=== PATIENT | male | born 1945 | race Hispanic/Latino ===

== ENCOUNTER 2017-10-11 14:51 | Inpatient (IN) | payer MEDICARE ==
[2017-10-11] MEDS ORDERED: Albuterol-Ipratrop 3 mg / 0.5 (3 ml) UD IH STA (14:55)
[2017-10-11] MEDS ORDERED: Albuterol-Ipratrop 3 mg / 0.5 (3 ml) UD ONE (14:58)
[2017-10-11 15:13] LABS: VENOUS BLOOD GAS BASE EXCESS -18.2 mmol/L (0.0-2.0); VENOUS BLOOD GAS PO2 133 mm/Hg (30-55)
[2017-10-11 15:14] LABS: VENOUS BLOOD PH 7.15 (7.32-7.43)
[2017-10-11 15:15] LABS: BASO # 0.13 K/mm3 (0.0-2.0); BASO % 0.5 % (0.0-3.0); GRAN # 19.96 (1.4-6.5); GRAN % 78.1 % (50.0-68.0); HEMOGLOBIN 15.3 g/dL (14.0-18.0); LYMPH # 1.4 (1.2-3.4); LYMPH % 5.6 % (22.0-35.0); MEAN CELL VOLUME 101.6 fl (80.0-105.0); MEAN CORPUSCULAR HEMOGLOBIN 34.6 pg (25.0-35.0); MEAN CORPUSCULAR HGB CONC 34.1 g/dl (31.0-37.0); MEAN PLATELET VOLUME 11.9 fl (7.0-11.0); MONO % 15.8 % (1.0-6.0); PLATELET COUNT 199 10^3/uL (120.0-450.0); RBC 4.42 10^6/uL (3.5-6.1); RED CELL DISTRIBUTION WIDTH 14.1 % (11.5-14.5)
[2017-10-11] MEDS ORDERED: Vancomycin 1gm in NS 250ml 1 GM/250 ML BAG IVPB STA (15:16)
[2017-10-11] MEDS ORDERED: Piperacillin/Tazobact 3.375 gm 100 ML IVPB STA (15:16)
[2017-10-11 15:22] LABS: WHITE BLOOD COUNT 25.6 10^3/ul (4.5-11.0)
[2017-10-11 15:27] LABS: INR 1.49 (0.93-1.08); PARTIAL THROMBOPLASTIN TIME 32.9 Seconds (25.1-36.5); PROTHROMBIN TIME 17.1 SECONDS (9.4-12.5)
--- NOTE | 2017-10-11 15:27 | RAD ---
HISTORY: respiratory distress COMPARISON: 03/19/2013 FINDINGS: LUNGS: Extensive right basilar infiltrate. PLEURA: Right costophrenic angle not included on this examination. No left pleural effusion. No pneumothorax. CARDIOVASCULAR: Normal. OSSEOUS STRUCTURES: No significant abnormalities. VISUALIZED UPPER ABDOMEN: Normal. OTHER FINDINGS: None. IMPRESSION: Right basilar infiltrate suspicious for pneumonia.
[2017-10-11 15:28] LABS: URINE BILIRUBIN NEGATIVE (NEGATIVE); URINE BLOOD LARGE (NEGATIVE); URINE GLUCOSE (UA) NEGATIVE (NEGATIVE); URINE LEUKOCYTE ESTERASE SMALL Leu/uL (NEGATIVE); URINE NITRATE NEGATIVE (NEGATIVE); URINE PROTEIN 100 mg/dL (<30 mg/dL); URINE UROBILINOGEN 0.2 E.U./dL (<1 E.U./dL)
[2017-10-11 15:29] LABS: URINE APPEARANCE SL CLOUDY (CLEAR); URINE COLOR YELLOW (YELLOW)
--- NOTE | 2017-10-11 15:33 | ED PDOC ---
Arrival/HPI - General Chief Complaint: Respiratory Distress Time Seen by Provider: 10/11/17 14:53 Historian: Patient, EMS - Critical Care Critical Care Minutes: 30 minutes Critical Care Time: Excluding Proc Time Narrative Critical Care (Text): 10/11/17 17:00 on bipap, then intubated, acidotic with lactate:12 - History of Present Illness Narrative History of Present Illness (Text): 10/11/17 14:50 A 72 year old male, whose past medical history includes COPD and CHF, is brought in by EMS and presents to the emergency department complaining of respiratory distress. Per EMS, patient was found in respiratory distress and put on BiPAP. Patient was given Lasix 60 mg and Nitro patch in the field. Currently has some improvement of symptoms. Limited HPI and ROS due to patient' s current condition of distress. No PMD Past Medical History - Provider Review Nursing Documentation Reviewed: Yes - Infectious Disease Hx of Infectious Diseases: None - Tetanus Immunization Tetanus Immunization: Unknown - Cardiac Hx Cardiac Disorders: Yes Hx Angina: Yes - Pulmonary Hx Respiratory Disorders: Yes Hx Asthma: Yes Hx Bronchitis: Yes Hx Chronic Obstructive Pulmonary Disease (COPD): Yes Hx Emphysema: Yes - Endocrine/Metabolic Hx Diabetes Mellitus Type 2: Yes Hx Hypothyroidism: Yes - Integumentary Hx Psoriasis: Yes - Musculoskeletal/Rheumatological Hx Falls: No - Gastrointestinal Hx Gastrointestinal Disorders: No - Genitourinary/Gynecological Hx Genitourinary Disorders: Yes (URGENCY) Hx Reproductive Disorders: No - Psychiatric Hx Depression: No Hx Emotional Abuse: No Hx Physical Abuse: No Hx Substance Use: No - Past Surgical History Past Surgical History: Unable to Obtain - Surgical History Hx Coronary Stent: Yes - Suicidal Assessment Feels Threatened In Home Enviroment: No Family/Social History - Physician Review Nursing Documentation Reviewed: Yes Family/Social History: No Known Family HX Smoking Status: Unknown If Ever Smoked Hx Alcohol Use: No Hx Substance Use: No Hx Substance Use Treatment: No Allergies/Home Meds Allergies/Adverse Reactions: Allergies No Known Allergies Allergy (Verified 10/11/17 17:02) PER TRCU NURSE Home Medications: Home Meds Medication Instructions Recorded Confirmed Levothyroxine [Synthroid] 100 mcg PO DAILY 04/02/13 10/11/17 Metformin HCl [Metformin HCl] 500 mg PO BID 04/02/13 10/11/17 glyBURIDE [Glyburide] 5 mg PO BID 04/02/13 10/11/17 Lisinopril [Zestril] 10 mg PO DAILY 10/11/17 10/11/17 Metoprolol Tartrate [Lopressor] 50 mg PO BID 10/11/17 10/11/17 Review of Systems - Review of Systems Systems not reviewed;Unavailable: Respiratory Distress Physical Exam Vital Signs Reviewed: Yes Vital Signs Temp Pulse Resp BP Pulse Ox 10/11/17 17:00 117 H 18 149/92 H 94 L 10/11/17 16:51 126 H 36 H 119/102 H 86 L 10/11/17 16:49 131 H 144/59 L 91 L 10/11/17 16:30 112 H 30 H 128/65 96 10/11/17 16:15 111 H 30 H 122/62 98 10/11/17 16:00 100 H 30 H 120/78 96 10/11/17 15:45 100 H 30 H 100/66 97 10/11/17 15:30 110 H 30 H 99/38 L 96 10/11/17 15:13 144/69 10/11/17 14:55 33 H 96 10/11/17 14:51 100.3 F H 114 H 33 H 144/69 96 Temperature: Afebrile Blood Pressure: Normal Pulse: Tachycardic Respiratory Rate: Tachypneic Appearance: Positive for: Ill-Appearing, Uncomfortable Pain Distress: None Mental Status: Positive for: Alert and Oriented X 3 - Systems Exam Head: Present: Normocephalic, Abrasion (left forehead (when questioned about fall, patient nods head that he fell)) Pupils: Present: PERRL Extroacular Muscles: Present: EOMI Mouth: Present: Moist Mucous Membranes Neck: Present: Normal Range of Motion Respiratory/Chest: Present: Respiratory Distress, Rales (bilaterally), Rhonchi Cardiovascular: Present: Tachycardic Abdomen: Present: Normal Bowel Sounds. No: Tenderness, Distention, Peritoneal Signs Genitourinary Male: Present: Other (incontinent of stool and urine) Lower Extremity: Present: Other (chronic stasis skin changes). No: Edema Psychiatric: Present: Alert, Oriented x 3 Medical Decision Making ED Course and Treatment: 10/11/17 14:53 Impression: 72 year old male with respiratory distress. Physical exam shows head normacephalic, abrasion to left forehead; rhonchi and rales bilaterally; tachycardic. Plan: -- EKG -- Head CT -- Chest X-ray -- Labs -- Venous Blood Gas -- Lactated Ringer's IV -- Vancomycin -- Piperacillin -- Blood Culture -- Urine Culture -- BiPAP -- Influenza A B test -- Urinalysis -- Reassess and disposition Prior Visits: Notes and results from previous visits were reviewed. Patient was last seen in the emergency department on Progress Notes: 10/11/17 15:20 Code Sepsis called. Broad spectrum antibiotics after blood and urine culture and 30cc/kg (4L) fluid ordered with instructions to give 2L bolus in under 30 mins and then 150cc/hr. Patient already on bipap and concerned for worsening respiratory distress 10/11/2017 15:25 Chest X-ray IMPRESSION: Right basilar infiltrate suspicious for pneumonia. Dictator: Adam Trujillo MD 10/11/17 15:53 On reevaluation, patient now phonating and asking "when can i go upstairs" 10/11/17 16:38 EKG shows sinus tach at 112bpm with no acute [facility] Nurse called me to bedside as patient became acutely dyspneic. He was unable to speak and began to desaturate to 85% and became altered and air hungry. Patient was intubated for respiratory distress. 10/11/17 16:46 PROCEDURE: INTUBATION Performed by the emergency provider Time: 1646 Consent: Discussion of the risks, benefits, and alternatives to the procedure, along with informed consent was precluded by the urgency of the procedure and the patient condition. Timeout: A timeout to verify the correct patient, procedure, and site was performed. Indication: respiratory distress Pre-oxygenation: [id number] Medications:. See MAR for details. ETT Size: 7.5 Confirmation: Cords directly visualized as tube passed, good bilateral breath sounds, positive CO2 detector color change, tube fogging, adequate chest rise, improving pulse oximetry reading, improved skin color, and absence of gastric sounds,. ETT Secured: The cuff was inflated and the tube was secured appropriately at a distance of 21cm at the lip. Post-Procedure: There were no immediate complications. CXR Confirmation: yes 10/11/17 17:[address] abd/pelvis requested by ICU negative for acute disease ( patient denied abdominal pain but ordered due to elevated lactate). To go to ICU for respiratory distress, renal failure, electrolyte abnormalities, pneumonia, chf 10/11/17 18:57 - Lab Interpretations Lab Results: 10/11/17 14:50 10/11/17 14:50 Lab Results 10/11/17 15:37: Influenza Typ A,B (EIA) Negative for flu a/b 10/11/17 14:50: pO2 133 H, VBG pH 7.15 L*, VBG pCO2 26.0 L, VBG HCO3 9.1 L, VBG Total CO2 9.9 L, VBG O2 Sat (Calc) 100.0 H, VBG Base Excess -18.2 L, VBG Potassium 5.1, Sodium 121.0 L, Chloride 88.0 L, Glucose 251 H, Lactate 12.0 H*, FiO2 21.0, Venous Blood Potassium 5.1 10/11/17 14:50: Sodium 127 L, Chloride 92 L, Potassium 5.2 H, Carbon Dioxide 10 L, Anion Gap 30 H, BUN 43 H, Creatinine 4.1 H, Est GFR ( Amer) 17, Est GFR (Non-Af Amer) 14, Random Glucose 239 H, Calcium 9.1, Phosphorus 4.9 H, Magnesium 1.6 L, Total Bilirubin 1.5 H, AST 80 H, ALT 44, Alkaline Phosphatase 115, Lactate Dehydrogenase 891 H, Total Creatine Kinase 1307 H, CK-MB (CK-2) 10.7 H, CK-MB (CK-2) % 0.8 L, Troponin I 0.04, NT-Pro-B Natriuret Pep 1750 H, Total Protein 7.5, Albumin 3.9, Globulin 3.6, Albumin/Globulin Ratio 1.1 10/11/17 14:50: PT 17.1 H, INR 1.49 H, APTT 32.9 10/11/17 14:50: WBC 25.6 H*, RBC 4.42, Hgb 15.3, Hct 44.9, MCV 101.6, MCH 34.6, MCHC 34.1, RDW 14.1, Plt Count 199, MPV 11.9 H, Gran % 78.1 H, Lymph % (Auto) 5.6 L, [place] % (Auto) 15.8 H, Eos % (Auto) 0.0 L, Baso % (Auto) 0.5, Gran # 19.96 H, Lymph # (Auto) 1.4, [place] # (Auto) 4.0 H, Eos # (Auto) 0.0, Baso # (Auto ) 0.13, Neutrophils % (Manual) 72 H, Band Neutrophils % 6 H, Lymphocytes % ( Manual) 7 L, Atypical Lymphs % 2 H, Monocytes % (Manual) 13 H, Nucleated RBC % 1 10/11/17 13:05: Urine Color Yellow, Urine Appearance Sl cloudy, Urine pH 6.0, Ur Specific [place] 1.025, Urine Protein 100 H, Urine Glucose (UA) Negative, Urine Ketones Negative, Urine Blood Large H, Urine Nitrate Negative, Urine Bilirubin Negative, Urine Urobilinogen 0.2, Ur Leukocyte Esterase Small H, Urine RBC 1 - 3, Urine WBC 10 - 15, Ur Epithelial Cells 1 - 3, Urine Bacteria Few - RAD Interpretation Radiology Orders: 10/11/17 14:53 HEAD W/O CONTRAST [CT] Stat 10/11/17 14:54 CHEST PORTABLE [RAD] Stat 10/11/17 16:04 ABD & PELVIS W/O PO OR IV CONT [CT] Stat - Medication Orders Current Medication Orders: Albuterol Sulfate (Albuterol 0.083% Inhal Lydia (2.5 Mg/3 Ml) Ud) 2.5 mg IH Q2H PRN PRN Reason: Shortness of Breath Albuterol Sulfate (Albuterol 0.083% Inhal Lydia (2.5 Mg/3 Ml) Ud) 2.5 mg IH [id number] GLORIA Propofol (Diprivan) 1,000 mg in 100 mls @ 3.81 mls/hr IV .Q24H PRN; Protocol; 5 MCG/KG/MIN PRN Reason: TITRATE PER PROTOCOL Last Admin: 10/11/17 17:00 Dose: 5 mcg/kg/min, 3.81 mls/hr eMAR Start Stop Document 10/11/17 17:00 SE (Rec: 10/11/17 17:16 SE [id number]) Intravenous Solution Start Date 10/11/17 Start Time 17:00 Razo Agitation Sedation Document 10/11/17 17:00 SE (Rec: 10/11/17 17:16 SE [id number]) Razo Agitation Sedation Scale Razo Agitation Sedation Scale Score +2 Agitated: Frequent non- purposeful movement, fights ventilator Titration Intervention Document 10/11/17 17:00 SE (Rec: 10/11/17 17:16 SE [id number]) Titration Intake Waste Amount 0 Container Volume 100 Titration Dosing Titration Dose 5 IV Rate 3.81 Intake/Decrease Started Cefepime HCl (Maxipime 1gm) 1 gm in 100 mls @ 100 mls/hr IVPB Q12 GLORIA PRN Reason: Protocol Sodium Chloride (Sodium Chloride 0.9%) 1,000 mls @ 150 mls/hr IV .Q6H40M GLORIA Sodium Chloride (Sodium Chloride 0.9%) 2,000 mls @ 999 mls/hr IV .Q2H1M STA Stop: 10/11/17 19:41 Vancomycin HCl (Vancomycin 1gm) 1 gm in 250 mls @ 167 mls/hr IVPB DAILY GLORIA PRN Reason: Protocol Azithromycin (Zithromax 500mg In Ns) 500 mg in 250 mls @ 167 mls/hr IVPB DAILY GLORIA PRN Reason: Protocol Insulin Human Regular (Humulin R Med) 0 units SC Q6H GLORIA PRN Reason: Protocol Oseltamivir Phosphate (Tamiflu Susp) 30 mg PO DAILY GLORIA PRN Reason: Protocol Pantoprazole Sodium (Protonix Inj) 40 mg IVP DAILY GLORIA Discontinued Medications Albuterol/Ipratropium (Duoneb 3 Mg/0.5 Mg (3 Ml) Ud) 3 ml IH STAT STA Stop: 10/11/17 14:56 Last Admin: 10/11/17 15:09 Dose: 3 ml Etomidate (Amidate) 30 mg IVP STAT STA Stop: 10/11/17 17:01 Last Admin: 10/11/17 16:52 Dose: 30 mg IVP Administration Document 10/11/17 16:52 SE (Rec: 10/11/17 17:14 SE [id number]) Charges for Administration # of IVP Administrations 1 Furosemide (Lasix) 20 mg IVP STAT STA Stop: 10/11/17 14:56 Last Admin: 10/11/17 15:13 Dose: 20 mg MAR Blood Pressure Document 10/11/17 15:13 SE (Rec: 10/11/17 15:13 SE [id number]) Blood Pressure Blood Pressure (100/60-150/90) 144/69 IVP Administration Document 10/11/17 15:13 SE (Rec: 10/11/17 15:13 SE [id number]) Charges for Administration # of IVP Administrations 1 Lactated Ringer's 4,000 ml/ IV (SUPPLIES) 4,000 mls @ 7,620.36 mls/hr IV ONCE ONE PRN Reason: 60 ML/KG/HR Stop: 10/11/17 15:18 Last Admin: 10/11/17 15:23 Dose: 7,620.36 mls/hr Vancomycin HCl (Vancomycin 1gm) 1 gm in 250 mls @ 167 mls/hr IVPB STAT STA PRN Reason: Protocol Stop: 10/11/17 16:45 Last Admin: 10/11/17 16:09 Dose: 167 mls/hr eMAR Start Stop Document 10/11/17 16:09 SE (Rec: 10/11/17 16:09 SE [id number]) Intravenous Solution Start Date 10/11/17 Start Time 16:09 Piperacillin Sod/Tazobactam Sod (Zosyn 3.375 In Ns 100ml) 100 mls @ 200 mls/hr IVPB STAT STA PRN Reason: Protocol Stop: 10/11/17 15:45 Last Admin: 10/11/17 15:27 Dose: 200 mls/hr eMAR Start Stop Document 10/11/17 15:27 SE (Rec: 10/11/17 15:27 SE [id number]) Intravenous Solution Start Date 10/11/17 Start Time 15:27 Methylprednisolone (Solu-Medrol) 125 mg IVP STAT STA Stop: 10/11/17 16:06 Last Admin: 10/11/17 16:14 Dose: 125 mg IVP Administration Document 10/11/17 16:14 SE (Rec: 10/11/17 16:15 SE [id number]) Charges for Administration # of IVP Administrations 1 Midazolam HCl (Versed Inj) 5 mg IVP STAT STA Stop: 10/11/17 17:37 Last Admin: 10/11/17 17:30 Dose: 5 mg Comments: admin by MALCOLM Carmen RN in CT IVP Administration Document 10/11/17 17:30 SE (Rec: 10/11/17 17:39 SE [id number]) Charges for Administration # of IVP Administrations 1 Propofol (Diprivan) 50 mg IVP STAT STA Stop: 10/11/17 17:21 Last Admin: 10/11/17 17:18 Dose: 50 mg IVP Administration Document 10/11/17 17:18 SE (Rec: 10/11/17 17:36 SE [id number]) Charges for Administration # of IVP Administrations 1 Succinylcholine Chloride (Quelicin) 100 mg IV STAT STA Stop: 10/11/17 17:01 Last Admin: 10/11/17 16:52 Dose: 100 mg eMAR Start Stop Document 10/11/17 16:52 SE (Rec: 10/11/17 17:14 SE [id number]) Intravenous Solution Start Date 10/11/17 Start Time 17:14 - Scribe Statement The provider has reviewed the documentation as recorded by the Don Darnell Provider Scribe Attestation: All medical record entries made by the Scribe were at my direction and personally dictated by me. I have reviewed the chart and agree that the record accurately reflects my personal performance of the history, physical exam, medical decision making, and the department course for this patient. I have also personally directed, reviewed, and agree with the discharge instructions and disposition. Disposition/Present on Arrival - Present on Arrival Any Indicators Present on Arrival: No History of DVT/PE: No History of Uncontrolled Diabetes: No Urinary Catheter: No History of Decub. Ulcer: No History Surgical Site Infection Following: None - Disposition Have Diagnosis and Disposition been Completed?: Yes Diagnosis: Pneumonia, Septic shock, Respiratory distress Disposition: HOSPITALIZED Disposition Time: 15:57 Patient Plan: Admission Patient Problems: Current Active Problems Problem Status Onset Pneumonia Acute Respiratory distress Acute Septic shock Acute Condition: CRITICAL
[2017-10-11 15:38] LABS: URINE BACTERIA FEW (NEG)
[2017-10-11 15:43] LABS: TROPONIN I 0.04 ng/mL
[2017-10-11 15:44] LABS: ATYPICAL LYMPHOCYTE 2 % (0.0-0.0); BAND 6 % (0-2); LYMPHOCYTE 7 % (22.0-35.0); MONOCYTE 13 % (1.0-6.0); NEUTROPHIL 72 % (50.0-70.0)
[2017-10-11 15:45] LABS: NUCLEATED RED BLOOD CELL 1 %
[2017-10-11 15:47] LABS: ALB/GLOB RATIO 1.1 (1.1-1.8); ALBUMIN 3.9 g/dL (3.0-4.8); CALCIUM 9.1 mg/dL (8.4-10.5); MAGNESIUM 1.6 mg/dL (1.7-2.2)
[2017-10-11 16:15] LABS: CK MB% 0.8 % (2.5-3.0); CK-MB 10.7 ng/mL (0.0-3.6)
[2017-10-11 16:28] LABS: VENOUS BLOOD GAS BASE EXCESS -15.4 mmol/L (0.0-2.0); VENOUS BLOOD GAS PO2 52 mm/Hg (30-55)
[2017-10-11 16:34] LABS: VENOUS BLOOD PH 7.17 (7.32-7.43)
[2017-10-11] MEDS ORDERED: Etomidate 20 mg/10ml Inj IV ONE ×2 (16:50→16:51)
[2017-10-11] MEDS ORDERED: Succinylcholine 200 mg/10 ml Inj IV ONE (16:50)
[2017-10-11] MEDS: Succinylcholine 200 mg/10 ml Inj IV STA ×2 (16:52→17:15)
[2017-10-11] MEDS ORDERED: Etomidate 20 mg/10ml Inj IVP STA (17:00)
[2017-10-11] MEDS: Propofol 10 mg/ml 1,000 MG/100 ML VIAL IV PRN ×2 (17:00→22:02)
[2017-10-11] MEDS ORDERED: Propofol 10 mg/ml 1,000 MG/100 ML VIAL ONE (17:00)
[2017-10-11] MEDS ORDERED: Propofol 10 mg/ml Inj (20 ML) IVP STA (17:20)
--- NOTE | 2017-10-11 17:26 | CP.PCM.CON ---
History of Present Illness - History of Present Illness History of Present Illness: Critical Care Consult Note patient is 72yo male with PMhx of former smoker (30pk years), COPD, ?CHF, presents with resp distress. As per the ER patient was found to be in resp distress at home, complaining of SOB, placed on BIPAP by EMS and given Lasix 60mg IV x 1. In the ER patient given 1L, and Lasix 20mg IV x 1. Pt is was on BIPAP 12/5/50%, sat 99%, RR 16, in NAD, speaking full sentences, then 15-20 minutes later went into worsening resp distress, hypoxia, pulse ox 75%, subsequently intubated. Currently intubated, sedated. PMhx as above PSHx as above Allergies NKDA Meds as per EMR FHx NC ROS as above Review of Systems - Review of Systems Review of Systems: as per HPI Past Patient History - Infectious Disease Hx of Infectious Diseases: None - Tetanus Immunizations Tetanus Immunization: Unknown - Past Social History Smoking Status: Unknown If Ever Smoked - CARDIAC Hx Cardiac Disorders: Yes Hx Angina: Yes - PULMONARY Hx Respiratory Disorders: Yes Hx Asthma: Yes Hx Bronchitis: Yes Hx Chronic Obstructive Pulmonary Disease (COPD): Yes Hx Emphysema: Yes - ENDOCRINE/METABOLIC Hx Diabetes Mellitus Type 2: Yes Hx Hypothyroidism: Yes - INTEGUMENTARY Hx Psoriasis: Yes - MUSCULOSKELETAL/RHEUMATOLOGICAL Hx Falls: No - GASTROINTESTINAL Hx Gastrointestinal Disorders: No - GENITOURINARY/GYNECOLOGICAL Hx Genitourinary Disorders: Yes (URGENCY) Hx Reproductive Disorders: No - PSYCHIATRIC Hx Depression: No Hx Emotional Abuse: No Hx Physical Abuse: No Hx Substance Use: No - SURGICAL HISTORY Hx Coronary Stent: Yes Meds Allergies/Adverse Reactions: Allergies Allergy/AdvReac Type Severity Reaction Status Date / Time No Known Allergies Allergy Verified 10/11/17 17:02 - Medications Medications: Current Medications Vancomycin HCl (Vancomycin 1gm) 1 gm in 250 mls @ 167 mls/hr IVPB STAT STA PRN Reason: Protocol Stop: 10/11/17 16:45 Last Admin: 10/11/17 16:09 Dose: 167 mls/hr Physical Exam - Constitutional Appears: No Acute Distress, Unkempt - Eye Exam Eye Exam: Normal appearance - ENT Exam ENT Exam: Mucous Membranes Dry - Neck Exam Neck exam: Positive for: Full Rom - Respiratory Exam Respiratory Exam: Decreased Breath Sounds, NORMAL BREATHING PATTERN Additional comments: decreased breath sounds at the bases, no wheezing - Cardiovascular Exam Cardiovascular Exam: REGULAR RHYTHM, +S1, +S2 - GI/Abdominal Exam GI & Abdominal Exam: Normal Bowel Sounds, Soft - Extremities Exam Extremities exam: Positive for: normal inspection - Neurological Exam Neurological exam: Alert, Oriented x3 - Skin Skin Exam: Normal Color, Warm Results - Vital Signs Recent Vital Signs: Last Vital Signs Temp 100.3 F H 10/11/17 14:51 Pulse 112 H 10/11/17 16:30 Resp 30 H 10/11/17 16:30 BP 128/65 10/11/17 16:30 Pulse Ox 96 10/11/17 16:30 - Labs Result Diagrams: 10/11/17 14:50 10/11/17 14:50 Labs: Laboratory Results - last 24 hr 10/11/17 10/11/17 10/11/17 13:05 14:50 14:50 WBC 25.6 H* RBC 4.42 Hgb 15.3 Hct 44.9 MCV 101.6 MCH 34.6 MCHC 34.1 RDW 14.1 Plt Count 199 MPV 11.9 H Gran % 78.1 H Lymph % (Auto) 5.6 L [place] % (Auto) 15.8 H Eos % (Auto) 0.0 L Baso % (Auto) 0.5 Gran # 19.96 H Lymph # (Auto) 1.4 [place] # (Auto) 4.0 H Eos # (Auto) 0.0 Baso # (Auto) 0.13 Neutrophils % (Manual) 72 H Band Neutrophils % 6 H Lymphocytes % (Manual) 7 L Atypical Lymphs % 2 H Monocytes % (Manual) 13 H Nucleated RBC % 1 PT 17.1 H INR 1.49 H APTT 32.9 pO2 VBG pH VBG pCO2 VBG HCO3 VBG Total CO2 VBG O2 Sat (Calc) VBG Base Excess VBG Potassium Sodium Chloride Glucose Lactate FiO2 Potassium Carbon Dioxide Anion Gap BUN Creatinine Est GFR ( Amer) Est GFR (Non-Af Amer) Random Glucose Calcium Phosphorus Magnesium Total Bilirubin AST ALT Alkaline Phosphatase Lactate Dehydrogenase Total Creatine Kinase CK-MB (CK-2) CK-MB (CK-2) % Troponin I NT-Pro-B Natriuret Pep Total Protein Albumin Globulin Albumin/Globulin Ratio Venous Blood Potassium Urine Color Yellow Urine Appearance Sl cloudy Urine pH 6.0 Ur Specific [place] 1.025 Urine Protein 100 H Urine Glucose (UA) Negative Urine Ketones Negative Urine Blood Large H Urine Nitrate Negative Urine Bilirubin Negative Urine Urobilinogen 0.2 Ur Leukocyte Esterase Small H Urine RBC 1 - 3 Urine WBC 10 - 15 Ur Epithelial Cells 1 - 3 Urine Bacteria Few 10/11/17 10/11/17 10/11/17 14:50 14:50 16:25 WBC RBC Hgb Hct MCV MCH MCHC RDW Plt Count MPV Gran % Lymph % (Auto) [place] % (Auto) Eos % (Auto) Baso % (Auto) Gran # Lymph # (Auto) [place] # (Auto) Eos # (Auto) Baso # (Auto) Neutrophils % (Manual) Band Neutrophils % Lymphocytes % (Manual) Atypical Lymphs % Monocytes % (Manual) Nucleated RBC % PT INR APTT pO2 133 H 52 VBG pH 7.15 L* 7.17 L* VBG pCO2 26.0 L 33.0 L VBG HCO3 9.1 L 12.0 L VBG Total CO2 9.9 L 13.0 L VBG O2 Sat (Calc) 100.0 H 90.1 H VBG Base Excess -18.2 L -15.4 L VBG Potassium 5.1 4.9 Sodium 127 L 121.0 L 123.0 L Chloride 92 L 88.0 L 93.0 L Glucose 251 H 187 H Lactate 12.0 H* 8.8 H* FiO2 21.0 21.0 Potassium 5.2 H Carbon Dioxide 10 L Anion Gap 30 H BUN 43 H Creatinine 4.1 H Est GFR ( Amer) 17 Est GFR (Non-Af Amer) 14 Random Glucose 239 H Calcium 9.1 Phosphorus 4.9 H Magnesium 1.6 L Total Bilirubin 1.5 H AST 80 H ALT 44 Alkaline Phosphatase 115 Lactate Dehydrogenase 891 H Total Creatine Kinase 1307 H CK-MB (CK-2) 10.7 H CK-MB (CK-2) % 0.8 L Troponin I 0.04 NT-Pro-B Natriuret Pep 1750 H Total Protein 7.5 Albumin 3.9 Globulin 3.6 Albumin/Globulin Ratio 1.1 Venous Blood Potassium 5.1 4.9 Urine Color Urine Appearance Urine pH Ur Specific [place] Urine Protein Urine Glucose (UA) Urine Ketones Urine Blood Urine Nitrate Urine Bilirubin Urine Urobilinogen Ur Leukocyte Esterase Urine RBC Urine WBC Ur Epithelial Cells Urine Bacteria - Imaging and Cardiology Chest x-ray Status: Image reviewed by me, Report reviewed by me Assessment & Plan - Assessment and Plan (Free Text) Assessment: 72yo male a/w resp failure, lactic acidosis, PNA PNA Respiratory failure Lactic Acidosis Renal Failure Metabolic Acidosis - currently intubated, sedated, BP 122/50, HR 80s, sinus - CXR with RML/RLL consolidation, pulm edema - labs with lactic acidosis thats improving 12-->8.8 - CT head, A/P pending Recommend: - cont with ventilatory support, low tidal vol ventilation, obtain ABG, obtain CXR - broad spectrum antibiotics, Vanco, Cefepime, Azithro - check urine Legionella, Strep, Procal - Check Sputum culture - Duonebs PRN - would hold off steroids for now, pending FLU swab - blood cultures, Urine cultures, ID consult - BP control - confirm home meds - would bolus 3L NS, repeat lactate thereafter - repeat BMP - CT head, CT A/P - obtain renal U/S - UA, Ulytes - renal consult - ECHO - repeat cardiac enzymes - GI ppx - DVT ppx patient at high risk for morbidity and mortality Critical care time 45 minutes
[2017-10-11] MEDS ORDERED: Midazolam 5 MG/ML ONE (17:33)
[2017-10-11] MEDS ORDERED: Albuterol 0.083% Inhal Sol (2.5 mg/3 mL) UD IH PRN (17:34)
[2017-10-11] MEDS ORDERED: Midazolam 2 MG/2 ML VIAL IVP STA (17:36)
--- NOTE | 2017-10-11 17:50 | RAD ---
HISTORY: Intubation. COMPARISON: October 11, 2017. Time of the most recent examination: 15:00 FINDINGS: LUNGS: Improved aeration of the lungs particularly right lower lobe infiltrate. PLEURA: No significant pleural effusion identified, no pneumothorax apparent. CARDIOVASCULAR: No radiographic findings to suggest acute or significant cardiovascular disease. OSSEOUS STRUCTURES: No significant abnormalities. VISUALIZED UPPER ABDOMEN: Normal. OTHER FINDINGS: Satisfactory position of recently placed endotracheal tube. IMPRESSION: Satisfactory position of recently placed endotracheal tube. Improved aeration of lung/right lower lobe infiltrate.
--- NOTE | 2017-10-11 18:14 | CT ---
PROCEDURE: CT HEAD WITHOUT CONTRAST. HISTORY: fall COMPARISON: None available. TECHNIQUE: Axial computed tomography images were obtained through the head/brain without intravenous contrast. Radiation dose: Total exam DLP = 1037.37 mGy-cm. This CT exam was performed using one or more of the following dose reduction techniques: Automated exposure control, adjustment of the mA and/or kV according to patient size, and/or use of iterative reconstruction technique. FINDINGS: HEMORRHAGE: No intracranial hemorrhage. BRAIN: Diffuse atrophy with prominence of the ventricles and sulci noted. No mass effect or edema. Scattered periventricular and subcortical white matter hypodensities, which are nonspecific, but often seen with chronic microvascular ischemic disease. Please note that MRI with diffusion imaging is more sensitive in the detection of acute ischemic event. VENTRICLES: No hydrocephalus. CALVARIUM: Postsurgical changes consistent with posterior right craniotomy. PARANASAL SINUSES: Unremarkable as visualized. No significant inflammatory changes. MASTOID AIR CELLS: Small fluid within the right mastoid air cells. The left mastoid air cells appear clear. OTHER FINDINGS: Partially imaged endotracheal tube. Bilateral nasal bone fracture deformities, age indeterminate. IMPRESSION: Generalized atrophy. Nonspecific white matter changes. Postsurgical changes consistent with posterior right craniotomy. Small fluid within the right mastoid air cells; correlate for mastoiditis. Bilateral age indeterminate nasal bone fracture deformities. Partially imaged endotracheal tube.
--- NOTE | 2017-10-11 18:30 | CT ---
PROCEDURE: CT Abdomen and Pelvis without intravenous contrast HISTORY: Respiratory distress, elevated lactate COMPARISON: 03/19/2013 TECHNIQUE: Unenhanced study. Neither oral nor intravenous contrast administered. Sensitivity and specificity for acute inflammatory processes limited by the absence of oral and intravenous contrast. . Radiation dose: Total exam DLP = 2176.14 mGy-cm. This CT exam was performed using one or more of the following dose reduction techniques: Automated exposure control, adjustment of the mA and/or kV according to patient size, and/or use of iterative reconstruction technique. FINDINGS: LOWER THORAX: Multi segment infiltrate incompletely visualize right lower lobe LIVER: Unremarkable. No gross lesion or ductal dilatation. GALLBLADDER AND BILE DUCTS: Unremarkable. PANCREAS: Unremarkable. No gross lesion or ductal dilatation. SPLEEN: Unremarkable. ADRENALS: Unremarkable. No mass. KIDNEYS AND URETERS: Unremarkable. No hydronephrosis. No solid mass. Stability of multiple bilateral renal cysts compared to the prior study VASCULATURE: Unremarkable. No aortic aneurysm. BOWEL: Diverticulosis without an acute inflammatory component or other associated pathologic process. Constipation without fecal impaction or obstruction. APPENDIX: Unremarkable. Normal appendix. PERITONEUM: Unremarkable. No free fluid. No free air. LYMPH NODES: Unremarkable. No enlarged lymph nodes. BLADDER: Mesa catheter identified in the urinary bladder. REPRODUCTIVE: Prostatic enlargement. BONES: No acute fracture. OTHER FINDINGS: None. IMPRESSION: No acute findings related to/accounting for the clinical presentation. Additional benign and/or incidental findings described above. No significant interval change compared to the prior examination(s).
[2017-10-11] MEDS: Sodium Chloride 0.9% 2,000 ML IV STA ×2 (18:54→19:30)
[2017-10-11] MEDS: Insulin Reg-MEDIUM-Coverage SC SCH (19:00)
[2017-10-11] MEDS ORDERED: Sodium Chloride 0.9% 500 ML IV STA (19:29)
[2017-10-11] MEDS: Sodium Chloride 0.9% 1,000 ML IV SCH (19:39)
[2017-10-11 20:20] VITALS: BMI 33.3
[2017-10-11] MEDS ORDERED: Pneumococcal 23-Valent Vaccine IM ONE (20:20)
[2017-10-11] MEDS ORDERED: Influenza Vaccine 60 mcg/0.5 mL SYR (4YR UP) IM ONE (20:20)
[2017-10-11] MEDS: Albuterol 0.083% Inhal Sol (2.5 mg/3 mL) UD IH SCH (21:10)
[2017-10-11] MEDS: Cefepime 1gm in NS 100ml 1 GM/100 ML BAG IVPB SCH (22:03)
--- NOTE | 2017-10-11 23:26 | PCM.SEPTIC ---
Sepsis Progress Note - Reassessment Type Date of Evaluation: 10/11/17 Time of Evaluation: 21:30 Reassessment Type: Non-invasive reassessment - Non Invasive Reassessment Were the most recent vital sign reviewed: Yes Vital Sign (Latest): Temp Pulse Resp BP Pulse Ox 100.3 F H 131 H 16 85/46 L 98 10/11/17 19:46 10/11/17 19:46 10/11/17 19:46 10/11/17 19:46 10/11/17 19:30 Cardiovascular: Yes: Tachycardia Respiratory: Yes: Rales, Rhonchi Capillary Refill: Normal (Less than 2 sec) Skin: Normal Color
--- NOTE | 2017-10-11 23:31 | CP.PCM.CON ---
History of Present Illness - History of Present Illness History of Present Illness: Infectious Disease Consultation: October 11, 2017 72 yo male presenting with SOB and respiratory distress at home. When entering through the ER, the patient was started on BiPAP and given Lasix. 15 minutes afterwards, the patient had worsening SOB and required intubation. Influenza testing was negative. Multiple electrolyte abnormalities especially hyponatremia and elevated creatinine. Patient is acidotic as well. Most of the information taken from the patient's chart. As the patient is intubated and ventilated now, unable to ask the patient any additional questions. The patient has no recent previous hospitalizations (last hospitalization in 2012). PMHx: COPD, CHF, Ex-smoker PSHx: None that I am aware of Allergies: NKDA Social Hx: Patient has a tobacco use history from records in 2012 No known EtOH history No known illicit drug use history Active Medications Albuterol Sulfate (Albuterol 0.083% Inhal Lydia (2.5 Mg/3 Ml) Ud) 2.5 mg IH Q2H PRN PRN Reason: Shortness of Breath Albuterol Sulfate (Albuterol 0.083% Inhal Lydia (2.5 Mg/3 Ml) Ud) 2.5 mg IH [id number] [facility] Last Admin: 10/11/17 21:10 Dose: 2.5 mg Propofol (Diprivan) 1,000 mg in 100 mls @ 3.81 mls/hr IV .Q24H PRN; Protocol; 5 MCG/KG/MIN PRN Reason: TITRATE PER PROTOCOL Last Admin: 10/11/17 22:02 Dose: 24.93 mcg/kg/min, 19 mls/hr Cefepime HCl (Maxipime 1gm) 1 gm in 100 mls @ 100 mls/hr IVPB Q12 [facility] PRN Reason: Protocol Last Admin: 10/11/17 22:03 Dose: 100 mls/hr Sodium Chloride (Sodium Chloride 0.9%) 1,000 mls @ 150 mls/hr IV .Q6H40M [facility] Last Admin: 10/11/17 19:39 Dose: 150 mls/hr Vancomycin HCl (Vancomycin 1gm) 1 gm in 250 mls @ 167 mls/hr IVPB DAILY [facility] PRN Reason: Protocol Azithromycin (Zithromax 500mg In Ns) 500 mg in 250 mls @ 167 mls/hr IVPB DAILY [facility] PRN Reason: Protocol Insulin Human Regular (Humulin R Med) 0 units SC Q6H [facility] PRN Reason: Protocol Last Admin: 10/11/17 19:00 Dose: Not Given Oseltamivir Phosphate (Tamiflu Susp) 30 mg PO DAILY [facility] PRN Reason: Protocol Pantoprazole Sodium (Protonix Inj) 40 mg IVP DAILY [facility] Family Hx: Unable to Obtain ROS: Unable to Obtain. Past Patient History - Infectious Disease Hx of Infectious Diseases: None - Tetanus Immunizations Tetanus Immunization: Unknown - Past Social History Smoking Status: Unknown If Ever Smoked - CARDIAC Hx Cardiac Disorders: Yes (cad) Hx Angina: Yes - PULMONARY Hx Respiratory Disorders: Yes Hx Asthma: Yes Hx Bronchitis: Yes Hx Chronic Obstructive Pulmonary Disease (COPD): Yes Hx Emphysema: Yes - ENDOCRINE/METABOLIC Hx Diabetes Mellitus Type 2: Yes Hx Hypothyroidism: Yes - INTEGUMENTARY Hx Psoriasis: Yes - MUSCULOSKELETAL/RHEUMATOLOGICAL Hx Falls: Yes - GASTROINTESTINAL Hx Gastrointestinal Disorders: No - GENITOURINARY/GYNECOLOGICAL Hx Genitourinary Disorders: Yes (URGENCY) - PSYCHIATRIC Hx Psychophysiologic Disorder: (unknown) Hx Depression: No Hx Emotional Abuse: No Hx Physical Abuse: No Hx Substance Use: (unknown) - SURGICAL HISTORY Hx Surgeries: (unknown) Hx Cardiac Catheterization: Yes Hx Coronary Stent: Yes Meds Allergies/Adverse Reactions: Allergies Allergy/AdvReac Type Severity Reaction Status Date / Time No Known Allergies Allergy Verified 10/11/17 19:45 - Medications Medications: Current Medications Albuterol Sulfate (Albuterol 0.083% Inhal Lydia (2.5 Mg/3 Ml) Ud) 2.5 mg IH Q2H PRN PRN Reason: Shortness of Breath Albuterol Sulfate (Albuterol 0.083% Inhal Lydia (2.5 Mg/3 Ml) Ud) 2.5 mg IH [id number] [facility] Last Admin: 10/11/17 21:10 Dose: 2.5 mg Propofol (Diprivan) 1,000 mg in 100 mls @ 3.81 mls/hr IV .Q24H PRN; Protocol; 5 MCG/KG/MIN PRN Reason: TITRATE PER PROTOCOL Last Admin: 10/11/17 22:02 Dose: 24.93 mcg/kg/min, 19 mls/hr Cefepime HCl (Maxipime 1gm) 1 gm in 100 mls @ 100 mls/hr IVPB Q12 [facility] PRN Reason: Protocol Last Admin: 10/11/17 22:03 Dose: 100 mls/hr Sodium Chloride (Sodium Chloride 0.9%) 1,000 mls @ 150 mls/hr IV .Q6H40M [facility] Last Admin: 10/11/17 19:39 Dose: 150 mls/hr Vancomycin HCl (Vancomycin 1gm) 1 gm in 250 mls @ 167 mls/hr IVPB DAILY [facility] PRN Reason: Protocol Azithromycin (Zithromax 500mg In Ns) 500 mg in 250 mls @ 167 mls/hr IVPB DAILY [facility] PRN Reason: Protocol Insulin Human Regular (Humulin R Med) 0 units SC Q6H [facility] PRN Reason: Protocol Last Admin: 10/11/17 19:00 Dose: Not Given Oseltamivir Phosphate (Tamiflu Susp) 30 mg PO DAILY [facility] PRN Reason: Protocol Pantoprazole Sodium (Protonix Inj) 40 mg IVP DAILY [facility] Physical Exam - Constitutional Appears: Chronically Ill Additional comments: Intubated and Ventilated - Head Exam Additional comments: Intubated and Ventilated - Eye Exam Eye Exam: EOMI, PERRL Pupil Exam: NORMAL ACCOMODATION, PERRL - ENT Exam ENT Exam: Mucous Membranes Dry - Neck Exam Neck exam: Positive for: Full Rom Additional comments: intubated and ventilated. - Respiratory Exam Respiratory Exam: Decreased Breath Sounds, NORMAL BREATHING PATTERN. absent: Rales, Rhonchi, Wheezes Additional comments: decreased breath sounds at both lung bases. - Cardiovascular Exam Cardiovascular Exam: REGULAR RHYTHM, RRR, +S1, +S2 - GI/Abdominal Exam GI & Abdominal Exam: Normal Bowel Sounds, Soft - Extremities Exam Extremities exam: Positive for: normal inspection. Negative for: joint swelling , pedal edema - Neurological Exam Neurological exam: CN II-XII Intact Additional comments: intubated and ventilated. - Skin Skin Exam: Intact, Normal Color Results - Vital Signs Recent Vital Signs: Last Vital Signs Temp 100.3 F H 10/11/17 19:46 Pulse 131 H 10/11/17 19:46 Resp 16 10/11/17 19:46 BP 85/46 L 10/11/17 19:46 Pulse Ox 98 10/11/17 19:30 - Labs Result Diagrams: 10/11/17 14:50 10/11/17 14:50 Labs: Laboratory Results - last 24 hr 10/11/17 10/11/17 16:25 20:45 pO2 52 VBG pH 7.17 L* VBG pCO2 33.0 L VBG HCO3 12.0 L VBG Total CO2 13.0 L VBG O2 Sat (Calc) 90.1 H VBG Base Excess -15.4 L VBG Potassium 4.9 Sodium 123.0 L Chloride 93.0 L Glucose 187 H Lactate 8.8 H* FiO2 21.0 POC Glucose (mg/dL) 188 H Venous Blood Potassium 4.9 Assessment & Plan - Assessment and Plan (Free Text) Assessment: 72 yo male with respiratory distress at home. Presented with SOB and required intubation and ventilation once in the [facility]. Patient with significant leukocytosis and borderline fevers here at [facility] [place]. Procalcitonin sent. On Cefepime, Vancomycin IV, and Azithromycin. Started on Tamiflu. CT scan showing RML/RLL consolidation/infiltrates. Current antibiotic regimen is reasonable start point. Awaiting procalcitonin results. Flynn cultures sent. Patient with lactic acidosis and electrolyte abnormalities. Hyponatremia. Acute renal failure with GFR less than 20 and creatinine of 4.1 on admission. Poor prognosis at this time. Patient critical. Thank you for allowing me to participate in the care of the patient, we will follow with you.
[2017-10-11 23:33] LABS: ARTERIAL BLOOD GAS HCO3 17.6 mmol/L (21-28); ARTERIAL BLOOD GAS O2 SAT 99.8 % (95-98); ARTERIAL BLOOD GAS PCO2 43 mm/Hg (35-45); ARTERIAL BLOOD GAS PH 7.22 (7.35-7.45); ARTERIAL BLOOD GAS TCO2 18.9 mmol.L (22-28)
--- NOTE | 2017-10-11 23:48 | CARD ---
APPROVED REPORT EKG Measurement Heart [id number] <Conclusion> Sinus tachycardia Inferior infarct, age undetermined Abnormal ECG
[2017-10-12] MEDS: Sodium Chloride 0.9% 1,000 ML IV SCH (00:30)
[2017-10-12] MEDS ORDERED: Amiodarone 150 mg/D5W 100 ml 150 MG/100 ML BAG IVPB ONE (00:55)
--- NOTE | 2017-10-12 00:57 | CP.PCM.PN ---
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 later this morning -2D-echo already pending -2AMPS IV bicarbonate added to maintenance IVFs given acidosis of AM ABG -of note, per night RN, overnight temps of 95.2 (recorded in [facility]) are incorrect -patient able to maintain SBP>90 for most of night and didnt require any pressors Objective - Vital Signs/Intake and Output Vital Signs (last 24 hours): Temp Pulse Resp BP Pulse Ox 98.6 F 124 H 16 111/49 L 94 L 10/12/17 00:00 10/12/17 00:20 10/11/17 19:46 10/12/17 00:00 10/12/17 00:20 Intake and Output: 10/11/17 10/12/17 18:59 06:59 Intake Total 2500 100 Output Total 300 Balance 2200 100 - Medications Medications: Current Medications Albuterol Sulfate (Albuterol 0.083% Inhal Lydia (2.5 Mg/3 Ml) Ud) 2.5 mg IH Q2H PRN PRN Reason: Shortness of Breath Albuterol Sulfate (Albuterol 0.083% Inhal Lydia (2.5 Mg/3 Ml) Ud) 2.5 mg IH [id number] [facility] Last Admin: 10/11/17 21:10 Dose: 2.5 mg Heparin Sodium (Porcine) (Heparin) 7,400 units 70 units/kg (7400 units) IV ONCE ONE PRN Reason: Protocol Stop: 10/12/17 00:55 Propofol (Diprivan) 1,000 mg in 100 mls @ 3.81 mls/hr IV .Q24H PRN; Protocol; 5 MCG/KG/MIN PRN Reason: TITRATE PER PROTOCOL Last Admin: 10/11/17 22:02 Dose: 24.93 mcg/kg/min, 19 mls/hr Cefepime HCl (Maxipime 1gm) 1 gm in 100 mls @ 100 mls/hr IVPB Q12 [facility] PRN Reason: Protocol Last Admin: 10/11/17 22:03 Dose: 100 mls/hr Sodium Chloride (Sodium Chloride 0.9%) 1,000 mls @ 150 mls/hr IV .Q6H40M [facility] Last Admin: 10/11/17 19:39 Dose: 150 mls/hr Vancomycin HCl (Vancomycin 1gm) 1 gm in 250 mls @ 167 mls/hr IVPB DAILY [facility] PRN Reason: Protocol Azithromycin (Zithromax 500mg In Ns) 500 mg in 250 mls @ 167 mls/hr IVPB DAILY [facility] PRN Reason: Protocol Amiodarone HCl/Dextrose (Nexterone 150 Mg In Dextrose 100 Ml (Premix)) 150 mg in 100 mls @ 600 mls/hr IVPB ONCE ONE PRN Reason: Protocol Stop: 10/12/17 01:04 Amiodarone HCl/Dextrose (Nexterone 360 Mg In D5w 200 Ml (Premix)) 360 mg in 200 mls @ 16.667 mls/hr IV .Q12H [facility]; 0.5 MG/MIN PRN Reason: Protocol Heparin Sodium/Sodium Chloride (Heparin 93540 Units/250ml 1/2 Normal Saline) 25 ,000 units in 250 mls @ 18.942 mls/hr IV .[id number] PRN; Protocol; 18 UNITS/KG/HR PRN Reason: ADJUST RATE PER PROTOCOL Insulin Human Regular (Humulin R Med) 0 units SC Q6H [facility] PRN Reason: Protocol Last Admin: 10/11/17 19:00 Dose: Not Given Oseltamivir Phosphate (Tamiflu Susp) 30 mg PO DAILY [facility] PRN Reason: Protocol Pantoprazole Sodium (Protonix Inj) 40 mg IVP DAILY [facility] - Labs Labs: PT 17.1 SECONDS (9.4-12.5) H 10/11/17 14:50 INR 1.49 (0.93-1.08) H 10/11/17 14:50 APTT 32.9 Seconds (25.1-36.5) 10/11/17 14:50
[2017-10-12] MEDS ORDERED: Amiodarone 360 mg/D5W 200 ml 360 MG/200 ML BAG IV SCH (01:00)
[2017-10-12] MEDS: Heparin25000 units/250ml 1/2NS 25,000 UNITS/250 ML BAG IV PRN ×2 (01:45→19:35)
[2017-10-12] MEDS: Albuterol 0.083% Inhal Sol (2.5 mg/3 mL) UD IH SCH ×4 (02:45→20:00)
[2017-10-12] MEDS: Propofol 10 mg/ml 1,000 MG/100 ML VIAL IV PRN (03:20)
[2017-10-12 04:56] LABS: ARTERIAL BLOOD GAS HCO3 17.2 mmol/L (21-28); ARTERIAL BLOOD GAS HEMOGLOBIN 12.8 g/dL (11.7-17.4); ARTERIAL BLOOD GAS O2 CAPACITY 17.5 mL/dl (16-24); ARTERIAL BLOOD GAS O2 CONTENT 16.6 ML/dl (15-23); ARTERIAL BLOOD GAS O2 SAT 94.6 % (95-98); ARTERIAL BLOOD GAS PCO2 45 mm/Hg (35-45); ARTERIAL BLOOD GAS TCO2 18.6 mmol.L (22-28)
[2017-10-12 05:00] LABS: ARTERIAL BLOOD GAS PH 7.19 (7.35-7.45)
[2017-10-12] MEDS: Insulin Reg-MEDIUM-Coverage SC SCH ×4 (06:09→18:44)
[2017-10-12 06:19] LABS: BASO # 0.02 K/mm3 (0.0-2.0); BASO % 0.2 % (0.0-3.0); GRAN # 10.71 (1.4-6.5); GRAN % 85.1 % (50.0-68.0); HEMOGLOBIN 12.5 g/dL (14.0-18.0); LYMPH # 0.6 (1.2-3.4); LYMPH % 4.4 % (22.0-35.0); MEAN CELL VOLUME 100.3 fl (80.0-105.0); MEAN CORPUSCULAR HEMOGLOBIN 33.4 pg (25.0-35.0); MEAN CORPUSCULAR HGB CONC 33.3 g/dl (31.0-37.0); MEAN PLATELET VOLUME 11.8 fl (7.0-11.0); MONO # 1.3 (0.1-0.6); MONO % 10.3 % (1.0-6.0); RBC 3.74 10^6/uL (3.5-6.1); RED CELL DISTRIBUTION WIDTH 14.1 % (11.5-14.5); WHITE BLOOD COUNT 12.6 10^3/ul (4.5-11.0)
[2017-10-12 07:13] LABS: ALB/GLOB RATIO 0.8 (1.1-1.8); ALBUMIN 2.5 g/dL (3.0-4.8); CALCIUM 7.4 mg/dL (8.4-10.5)
[2017-10-12] MEDS: Vancomycin 1gm in NS 250ml 1 GM/250 ML BAG IVPB SCH (11:37)
[2017-10-12] MEDS: Cefepime 1gm in NS 100ml 1 GM/100 ML BAG IVPB SCH ×2 (11:37→22:11)
[2017-10-12] MEDS: Azithromycin 500MG/NS 250ml 500 MG/250 ML BAG IVPB SCH (11:38)
[2017-10-12 12:47] LABS: ARTERIAL BLOOD GAS HCO3 18.5 mmol/L (21-28); ARTERIAL BLOOD GAS HEMOGLOBIN 12.4 g/dL (11.7-17.4); ARTERIAL BLOOD GAS O2 CONTENT 16.7 ML/dl (15-23); ARTERIAL BLOOD GAS O2 SAT 98.5 % (95-98); ARTERIAL BLOOD GAS PCO2 35 mm/Hg (35-45); ARTERIAL BLOOD GAS PH 7.33 (7.35-7.45); ARTERIAL BLOOD GAS TCO2 19.6 mmol.L (22-28)
--- NOTE | 2017-10-12 12:52 | RAD ---
HISTORY: intubated COMPARISON: Portable chest 10/11/2017. FINDINGS: LUNGS: Endotracheal tube is unchanged in position. There is a mild increase in mid to inferior right sided pulmonary infiltrate with air bronchograms again appreciated at dominant opacity at the right infrahilar space. No definitive left-sided infiltrate. PLEURA: No significant pleural effusion identified, no pneumothorax apparent. CARDIOVASCULAR: Normal. OSSEOUS STRUCTURES: No significant abnormalities. VISUALIZED UPPER ABDOMEN: Normal. OTHER FINDINGS: None. IMPRESSION: Mild interval increase in mid to inferior right sided pulmonary infiltrate with remaining lung east clear. Endotracheal tube unchanged in position.
--- NOTE | 2017-10-12 13:15 | PN ---
DATE: The patient is seen and examined at bedside. He is on pressure support 5/5 with FiO2 of 50%. He is pulling tidal volume about 600 and his respiratory rate is 20. His rapid shallow breathing index is 31. Blood pressure 105/50. The patient is not on any pressors. Temperature 96.1, end-tidal CO2 on the monitor 27, oxygen saturation 98, respiratory rate 21 on the monitor, heart rate 83. The patient is alert and awake, oriented x3. Follows commands. The patient is on heparin drip. The patient is on bicarbonate drip. Propofol is off. PHYSICAL EXAMINATION ENT: Head and neck atraumatic. LUNGS: Clear to auscultation bilaterally. HEART: Regular rate and rhythm. S1, S2 normal. ABDOMEN: Soft, nontender, nondistended. MUSCULOSKELETAL: Trace bilateral pedal and ankle edema. NEUROLOGICAL: The patient moves all extremities spontaneously. SKIN: Moist. PSYCHIATRIC: The patient is alert and oriented and awake and following commands. LABORATORY DATA: WBC of 12.6 down from 25.6, hemoglobin 12.5, platelet count 158,000. Sodium 130, potassium 4.9, chloride 100, carbon dioxide 17, BUN 45, creatinine 3.3 down from 4.1, glucose 234, AST 60, ALT 35, lactic acid 1.3. MEDICATIONS: DuoNeb p.r.n. and DuoNeb every 6 hours, heparin drip, Regular insulin sliding scale medium protocol, cefepime, Tamiflu, Protonix, vancomycin, azithromycin. DATA: Chest x-ray today showed right lower lobe infiltrate, fairly unchanged compared with yesterday. ASSESSMENT AND PLAN: This is a 72-year-old gentleman who presented with severe community-acquired pneumonia with right lower lobe infiltrate complicated by severe sepsis with multiorgan system failure including FABRICIO and respiratory failure, requiring intubation. At the present time, the patient is alert, awake, following commands, able to lift his head more than 10 cm off pillow. He is tolerating pressure support trial 5/5 with FiO2 50%, very well. He is very comfortable. His rapid shallow breathing index is 31. He is hemodynamically stable and off of pressors. If completed pressure support trial with adequate ABG, the patient will be extubated. He is on cefepime, vancomycin and azithromycin. Septic workup is still pending and non-yielding yet. Procalcitonin is pending. The patient will be n.p.o. until successfully extubated; or, if failed pressure support trial, put back on PRVC. The patient had episodes of atrial fibrillation, most likely related to sepsis and thus, on heparin drip. At present time, the patient is in sinus rhythm with controlled heart rate at 82. Sedation is off. We will continue to maintain mean arterial pressure more than 65. His creatinine is improved. He started making urine. We will continue to monitor urine output with a goal on 0.5 mL/kg per hour. The patient makes more than 100 per hour cc of urine. We will continue to maintain euglycemia for additional Nephro-protective effect. We will try to avoid nephrotoxic medication, but not at expense of treatment of Lyme disease. We will continue with DVT and GI prophylaxis. Addendum: -->extubate to BPAP: patient is doing well several hours after extubation. Will continue monitor in ICU ccm time 40 min Duncan Mueller MD JOYCE
[2017-10-12] MEDS: Oseltamivir 6 MG/ML PO SCH (13:42)
--- NOTE | 2017-10-12 14:22 | RAD ---
HISTORY: og tube placement COMPARISON: Chest radiograph performed approximately 7 hours prior. FINDINGS: LUNGS: Stable right basilar fluffy infiltrates. PLEURA: No significant pleural effusion identified, no pneumothorax apparent. CARDIOVASCULAR: Atherosclerotic aortic calcifications. Cardiomediastinal silhouette unchanged. . OSSEOUS STRUCTURES: Unchanged. VISUALIZED UPPER ABDOMEN: Normal. OTHER FINDINGS: New enteric tube with side hole at the gastroesophageal junction. Endotracheal tube, unchanged. IMPRESSION: New enteric tube with side hole at the level of the gastroesophageal junction. Minimal advancement is recommended. No other significant interval change
--- NOTE | 2017-10-12 14:28 | RAD ---
HISTORY: POST EXTUBATION COMPARISON: Chest radiograph performed approximately 20 minutes prior FINDINGS: LUNGS: Right basilar fluffy infiltrates unchanged. Left midlung atelectasis. PLEURA: No significant pleural effusion identified, no pneumothorax apparent. CARDIOVASCULAR: Atherosclerotic aortic calcifications. Cardiomediastinal silhouette unchanged. OSSEOUS STRUCTURES: Unchanged. VISUALIZED UPPER ABDOMEN: Normal. OTHER FINDINGS: Interval removal of endotracheal tube. Enteric tube, unchanged. IMPRESSION: Interval removal of endotracheal tube. No other significant interval change.
--- NOTE | 2017-10-12 18:24 | CARD ---
APPROVED REPORT EXAM: Two-dimensional and M-mode echocardiogram with Doppler and color Doppler. 2D DIMENSIONS IVSd1.3 (0.7-1.1cm)LVDd4.1 (3.9-5.9cm) PWd1.2 (0.7-1.1cm)LVEF (%)55.0 (>50%) M-Mode DIMENSIONS Aortic Root3.60 (2.2-3.7cm)Aortic Cusp Exc.1.50 (1.5-2.0cm) Aortic Valve AoV Peak Iqmvabxo725.0cm/Jackie Peak GR.7mmHg Mitral Valve MV E Eeaqdcqe41.9cm/sMV A Mvguwxji600.0cm/sE/A ratio0.8 TDI E/Lateral E'0.0E/Medial E'0.0 Tricuspid Valve TR Peak Tducchra534km/sRAP [id number] Peak Gr.13mmHg [id number] LEFT VENTRICLE The left ventricle is normal size. There is borderline concentric left ventricular hypertrophy. The left ventricular function is normal. The left ventricular ejection fraction is within the normal range. There is normal LV segmental wall motion. Transmitral Doppler flow pattern is Grade I-abnormal relaxation pattern. RIGHT VENTRICLE The right ventricle is normal size. There is normal right ventricular wall thickness. The right ventricular systolic function is normal. ATRIA The left atrium size is normal. The right atrium size is normal. AORTIC VALVE The aortic valve is not well visualized. No aortic regurgitation is present. There is no aortic valvular stenosis. MITRAL VALVE The mitral valve is normal in structure. There is no mitral valve regurgitation noted. TRICUSPID VALVE The tricuspid valve is normal in structure. There is no tricuspid valve regurgitation noted. GREAT VESSELS The aortic root is normal in size. PERICARDIAL EFFUSION There is a small loculated anterior pericardial effusion. <Conclusion> The left ventricle is normal size. There is borderline concentric left ventricular hypertrophy. The left ventricular function is normal. The left ventricular ejection fraction is within the normal range. There is normal LV segmental wall motion. Transmitral Doppler flow pattern is Grade I-abnormal relaxation pattern.
--- NOTE | 2017-10-12 18:48 | CP.PCM.PN ---
Subjective - Date & Time of Evaluation Date of Evaluation: 10/12/17 Time of Evaluation: 16:45 - Subjective Subjective: Infectious Disease Follow Up: October 12, 2017 72 yo male presenting with SOB and respiratory distress at home. When entering through the ER, the patient was started on BiPAP and given Lasix. 15 minutes afterwards, the patient had worsening SOB and required intubation. Influenza testing was negative. Multiple electrolyte abnormalities especially hyponatremia and elevated creatinine. Patient is acidotic as well. Most of the information taken from the patient's chart. As the patient is intubated and ventilated now, unable to ask the patient any additional questions. The patient has no recent previous hospitalizations (last hospitalization in 2012). Procalcitonin up to 18.11. Extubated today and appears to be doing well. Objective - Vital Signs/Intake and Output Vital Signs (last 24 hours): Temp Pulse Resp BP Pulse Ox 97.7 F 91 H 16 135/59 L 98 10/12/17 17:00 10/12/17 17:00 10/12/17 17:00 10/12/17 17:00 10/12/17 17:00 Intake and Output: 10/12/17 10/12/17 06:59 18:59 Intake Total 1840 256.3 Output Total 1900 Balance -60 256.3 - Medications Medications: Current Medications Albuterol Sulfate (Albuterol 0.083% Inhal Lydia (2.5 Mg/3 Ml) Ud) 2.5 mg IH Q2H PRN PRN Reason: Shortness of Breath Albuterol Sulfate (Albuterol 0.083% Inhal Lydia (2.5 Mg/3 Ml) Ud) 2.5 mg IH [id number] [facility] Last Admin: 10/12/17 13:18 Dose: 2.5 mg Propofol (Diprivan) 1,000 mg in 100 mls @ 3.81 mls/hr IV .Q24H PRN; Protocol; 5 MCG/KG/MIN PRN Reason: TITRATE PER PROTOCOL Last Titration: 10/12/17 12:14 Dose: 0 mcg/kg/min, 0 mls/hr Cefepime HCl (Maxipime 1gm) 1 gm in 100 mls @ 100 mls/hr IVPB Q12 [facility] PRN Reason: Protocol Last Admin: 10/12/17 11:37 Dose: 100 mls/hr Vancomycin HCl (Vancomycin 1gm) 1 gm in 250 mls @ 167 mls/hr IVPB DAILY [facility] PRN Reason: Protocol Last Admin: 10/12/17 11:37 Dose: 167 mls/hr Azithromycin (Zithromax 500mg In Ns) 500 mg in 250 mls @ 167 mls/hr IVPB DAILY [facility] PRN Reason: Protocol Last Admin: 10/12/17 11:38 Dose: 167 mls/hr Heparin Sodium/Sodium Chloride (Heparin 02820 Units/250ml 1/2 Normal Saline) 25 ,000 units in 250 mls @ 10.05 mls/hr IV .Q24H PRN; Protocol; 9.55 UNITS/KG/HR PRN Reason: ADJUST RATE PER PROTOCOL Last Titration: 10/12/17 13:42 Dose: 0 units/kg/hr, 0 mls/hr Sodium Bicarbonate 100 meq/ (Sodium Chloride) 1,100 mls @ 125 mls/hr IV .Q8H48M [facility] Last Admin: 10/12/17 18:23 Dose: 125 mls/hr Insulin Human Regular (Humulin R Med) 0 units SC Q6H [facility] PRN Reason: Protocol Last Admin: 10/12/17 13:26 Dose: Not Given Oseltamivir Phosphate (Tamiflu Susp) 30 mg PO DAILY [facility] PRN Reason: Protocol Last Admin: 10/12/17 13:42 Dose: 30 mg Pantoprazole Sodium (Protonix Inj) 40 mg IVP DAILY [facility] Last Admin: 10/12/17 11:36 Dose: 40 mg - Labs Labs: 10/12/17 05:30 10/12/17 05:30 PT 17.1 SECONDS (9.4-12.5) H 10/11/17 14:50 INR 1.49 (0.93-1.08) H 10/11/17 14:50 APTT 109.6 Seconds (25.1-36.5) H* 10/12/17 12:57 - Constitutional Appears: Non-toxic, No Acute Distress, Chronically Ill - Head Exam Head Exam: ATRAUMATIC, NORMOCEPHALIC - Eye Exam Eye Exam: EOMI, PERRL Pupil Exam: NORMAL ACCOMODATION, PERRL - ENT Exam ENT Exam: Mucous Membranes Moist, Normal External Ear Exam, TM's Normal Bilaterally - Neck Exam Neck Exam: Full ROM, Normal Inspection - Respiratory Exam Respiratory Exam: NORMAL BREATHING PATTERN. absent: Rales, Rhonchi, Wheezes - Cardiovascular Exam Cardiovascular Exam: REGULAR RHYTHM, RRR, +S1, +S2 - GI/Abdominal Exam GI & Abdominal Exam: Soft, Normal Bowel Sounds. absent: Distended, Tenderness - Extremities Exam Extremities Exam: Full ROM, Normal Inspection - Neurological Exam Neurological Exam: Alert, Awake, CN II-XII Intact - Psychiatric Exam Psychiatric exam: Normal Affect, Normal Mood - Skin Skin Exam: Intact, Normal Color Assessment and Plan - Assessment and Plan (Free Text) Assessment: 72 yo male with respiratory distress at home. Presented with SOB and required intubation and ventilation once in the [facility] ER. Patient with significant leukocytosis and borderline fevers here at [facility]. Procalcitonin sent. On Cefepime, Vancomycin IV, and Azithromycin. Started on Tamiflu. CT scan showing RML/RLL consolidation/infiltrates. Current antibiotic regimen is reasonable start point. Procalcitonin results of 18.11. Flynn cultures sent. Patient with lactic acidosis and electrolyte abnormalities. Hyponatremia. Acute renal failure with GFR less than 20 and creatinine of 4.1 on admission. Extubated today. Improving. Pneumonia. Remains on Vancomycin IV, Azithromycin , and Cefepime for treatment. Thank you for allowing me to participate in the care of the patient, we will follow with you.
[2017-10-12] MEDS: diltiaZEM IVPB 100mg in NS 100 ML IV PRN (23:23)
--- NOTE | 2017-10-12 23:38 | CARD ---
APPROVED REPORT EKG Measurement Heart [id number] <Conclusion> Normal sinus rhythm Low voltage QRS Inferior infarct, age undetermined Abnormal ECG
[2017-10-13] MEDS: Insulin Reg-MEDIUM-Coverage SC SCH ×4 (00:05→17:44)
[2017-10-13] MEDS: diltiaZEM IVPB 100mg in NS 100 ML IV PRN ×2 (00:08→05:14)
[2017-10-13] MEDS: Albuterol 0.083% Inhal Sol (2.5 mg/3 mL) UD IH SCH ×4 (01:15→19:19)
[2017-10-13 05:11] LABS: BASO # 0.02 K/mm3 (0.0-2.0); BASO % 0.2 % (0.0-3.0); GRAN # 11.02 (1.4-6.5); GRAN % 85.2 % (50.0-68.0); LYMPH # 0.8 (1.2-3.4); LYMPH % 6.3 % (22.0-35.0); MEAN CELL VOLUME 99.2 fl (80.0-105.0); MEAN CORPUSCULAR HEMOGLOBIN 33.7 pg (25.0-35.0); MEAN PLATELET VOLUME 12.4 fl (7.0-11.0); MONO # 1.1 (0.1-0.6); MONO % 8.3 % (1.0-6.0); RBC 3.56 10^6/uL (3.5-6.1); RED CELL DISTRIBUTION WIDTH 14.3 % (11.5-14.5); WHITE BLOOD COUNT 12.9 10^3/ul (4.5-11.0)
[2017-10-13 05:33] LABS: ALB/GLOB RATIO 0.9 (1.1-1.8); ALBUMIN 2.6 g/dL (3.0-4.8); CALCIUM 7.5 mg/dL (8.4-10.5)
[2017-10-13] MEDS: Vancomycin 1gm in NS 250ml 1 GM/250 ML BAG IVPB SCH (09:25)
[2017-10-13] MEDS: Cefepime 1gm in NS 100ml 1 GM/100 ML BAG IVPB SCH ×2 (09:25→21:12)
[2017-10-13] MEDS: Azithromycin 500MG/NS 250ml 500 MG/250 ML BAG IVPB SCH (09:26)
[2017-10-13] MEDS: Oseltamivir 6 MG/ML PO SCH (09:42)
--- NOTE | 2017-10-13 10:19 | RAD ---
HISTORY: Intubation. COMPARISON: October 12, 2017. FINDINGS: LUNGS: Consolidative changes primarily affecting right lower lobe. PLEURA: No significant pleural effusion identified, no pneumothorax apparent. CARDIOVASCULAR: No radiographic findings to suggest acute or significant cardiovascular disease. OSSEOUS STRUCTURES: No significant abnormalities. VISUALIZED UPPER ABDOMEN: Normal. OTHER FINDINGS: Stable position of nasogastric tube. The patient has been extubated. IMPRESSION: Persistent right lower lobe infiltrate.
--- NOTE | 2017-10-13 10:39 | CP.PCM.PN ---
Subjective - Date & Time of Evaluation Date of Evaluation: 10/13/17 Time of Evaluation: 07:10 - Subjective Subjective: Pt seen and examined, remains off BIPAP, doing well, no major complaints. Objective - Vital Signs/Intake and Output Vital Signs (last 24 hours): Temp Pulse Resp BP Pulse Ox 98.8 F 115 H 15 140/62 100 10/13/17 08:00 10/13/17 09:24 10/13/17 06:00 10/13/17 09:24 10/13/17 06:00 Intake and Output: 10/13/17 10/13/17 06:59 18:59 Intake Total 3236 Output Total 2000 Balance 1236 - Medications Medications: Current Medications Albuterol Sulfate (Albuterol 0.083% Inhal Lydia (2.5 Mg/3 Ml) Ud) 2.5 mg IH Q2H PRN PRN Reason: Shortness of Breath Albuterol Sulfate (Albuterol 0.083% Inhal Lydia (2.5 Mg/3 Ml) Ud) 2.5 mg IH [id number] [facility] Last Admin: 10/13/17 08:23 Dose: 2.5 mg Budesonide (Pulmicort Respules) 0.5 mg IH [id number] [facility] Diltiazem HCl (Cardizem) 60 mg PO QID [facility] Last Admin: 10/13/17 09:47 Dose: Not Given Cefepime HCl (Maxipime 1gm) 1 gm in 100 mls @ 100 mls/hr IVPB Q12 [facility] PRN Reason: Protocol Last Admin: 10/13/17 09:25 Dose: 100 mls/hr Vancomycin HCl (Vancomycin 1gm) 1 gm in 250 mls @ 167 mls/hr IVPB DAILY [facility] PRN Reason: Protocol Last Admin: 10/13/17 09:25 Dose: 167 mls/hr Azithromycin (Zithromax 500mg In Ns) 500 mg in 250 mls @ 167 mls/hr IVPB DAILY [facility] PRN Reason: Protocol Last Admin: 10/13/17 09:26 Dose: 167 mls/hr Heparin Sodium/Sodium Chloride (Heparin 40027 Units/250ml 1/2 Normal Saline) 25 ,000 units in 250 mls @ 10.05 mls/hr IV .Q24H PRN; Protocol; 9.55 UNITS/KG/HR PRN Reason: ADJUST RATE PER PROTOCOL Last Admin: 10/12/17 19:35 Dose: 12 units/kg/hr, 12.628 mls/hr Insulin Human Regular (Humulin R Med) 0 units SC Q6H [facility] PRN Reason: Protocol Last Admin: 10/13/17 07:57 Dose: Not Given Oseltamivir Phosphate (Tamiflu Susp) 30 mg PO DAILY [facility] PRN Reason: Protocol Last Admin: 10/13/17 09:42 Dose: 30 mg Pantoprazole Sodium (Protonix Inj) 40 mg IVP DAILY [facility] Last Admin: 10/13/17 09:24 Dose: 40 mg - Labs Labs: 10/13/17 05:00 10/13/17 05:00 PT 17.1 SECONDS (9.4-12.5) H 10/11/17 14:50 INR 1.49 (0.93-1.08) H 10/11/17 14:50 APTT 79.7 Seconds (25.1-36.5) H 10/13/17 02:00 - Constitutional Appears: Non-toxic, No Acute Distress - Eye Exam Eye Exam: Normal appearance - ENT Exam ENT Exam: Mucous Membranes Moist - Respiratory Exam Respiratory Exam: Decreased Breath Sounds, NORMAL BREATHING PATTERN - Cardiovascular Exam Cardiovascular Exam: REGULAR RHYTHM, +S1, +S2 - GI/Abdominal Exam GI & Abdominal Exam: Soft, Normal Bowel Sounds - Extremities Exam Extremities Exam: Pedal Edema - Neurological Exam Neurological Exam: Alert, Awake Assessment and Plan - Assessment and Plan (Free Text) Assessment: 72yo male a/w resp failure, PNA PNA Respiratory failure, resolved Renal Failure Severe Sepsis - currently afebrile, HD stable, comfortable in NAD - Titrating off cardizem drip, switched to PO cardizem - speech swallow eval pending Recommend: - cont with supp o2 as needed, BIPAP at night - Duonebs PRN - Pulmicort BID - cont with broad spectrum antibiotics as per ID - BP control - switch to PO cardizem, cont with Heparin drip - cardiology eval - obtain renal U/S - renal follow up - GI ppx - DVT ppx - monitor in MICU Critical care time 35 minutes
[2017-10-13] MEDS: Heparin25000 units/250ml 1/2NS 25,000 UNITS/250 ML BAG IV PRN (16:00)
--- NOTE | 2017-10-13 17:43 | CP.PCM.PN ---
Subjective - Date & Time of Evaluation Date of Evaluation: 10/13/17 Time of Evaluation: 17:28 - Subjective Subjective: Infectious Disease Follow Up: October 13, 2017 72 yo male presenting with SOB and respiratory distress at home. When entering through the ER, the patient was started on BiPAP and given Lasix. 15 minutes afterwards, the patient had worsening SOB and required intubation. Influenza testing was negative. Multiple electrolyte abnormalities especially hyponatremia and elevated creatinine. Patient is acidotic as well. Most of the information taken from the patient's chart. As the patient is intubated and ventilated now, unable to ask the patient any additional questions. The patient has no recent previous hospitalizations (last hospitalization in 2012). Procalcitonin up to 18.11. Extubated yesterday and appears to be doing well. Off BiPAP. WBC has dropped dramatically to 12.9. Most of his electrolyte abnormalities have improved. However, creatinine still remains high. Urine cultures showing gram negative elan. Objective - Vital Signs/Intake and Output Vital Signs (last 24 hours): Temp Pulse Resp BP Pulse Ox 98.2 F 139 H 17 144/57 L 98 10/13/17 16:00 10/13/17 17:19 10/13/17 16:00 10/13/17 17:19 10/13/17 16:00 Intake and Output: 10/13/17 10/13/17 06:59 18:59 Intake Total 3236 84 Output Total 2000 Balance 1236 84 - Medications Medications: Current Medications Albuterol Sulfate (Albuterol 0.083% Inhal Lydia (2.5 Mg/3 Ml) Ud) 2.5 mg IH Q2H PRN PRN Reason: Shortness of Breath Albuterol Sulfate (Albuterol 0.083% Inhal Lydia (2.5 Mg/3 Ml) Ud) 2.5 mg IH [id number] [facility] Last Admin: 10/13/17 13:50 Dose: 2.5 mg Budesonide (Pulmicort Respules) 0.5 mg IH [id number] [facility] Diltiazem HCl (Cardizem) 60 mg PO QID [facility] Last Admin: 10/13/17 17:19 Dose: 60 mg Cefepime HCl (Maxipime 1gm) 1 gm in 100 mls @ 100 mls/hr IVPB Q12 [facility] PRN Reason: Protocol Last Admin: 10/13/17 09:25 Dose: 100 mls/hr Vancomycin HCl (Vancomycin 1gm) 1 gm in 250 mls @ 167 mls/hr IVPB DAILY [facility] PRN Reason: Protocol Last Admin: 10/13/17 09:25 Dose: 167 mls/hr Azithromycin (Zithromax 500mg In Ns) 500 mg in 250 mls @ 167 mls/hr IVPB DAILY [facility] PRN Reason: Protocol Last Admin: 10/13/17 09:26 Dose: 167 mls/hr Heparin Sodium/Sodium Chloride (Heparin 97654 Units/250ml 1/2 Normal Saline) 25 ,000 units in 250 mls @ 10.05 mls/hr IV .Q24H PRN; Protocol; 9.55 UNITS/KG/HR PRN Reason: ADJUST RATE PER PROTOCOL Last Titration: 10/13/17 14:40 Dose: 9.5 units/kg/hr, 10 mls/hr Insulin Human Regular (Humulin R Med) 0 units SC Q6H [facility] PRN Reason: Protocol Last Admin: 10/13/17 13:10 Dose: Not Given Oseltamivir Phosphate (Tamiflu Susp) 30 mg PO DAILY [facility] PRN Reason: Protocol Last Admin: 10/13/17 09:42 Dose: 30 mg Pantoprazole Sodium (Protonix Inj) 40 mg IVP DAILY [facility] Last Admin: 10/13/17 09:24 Dose: 40 mg - Labs Labs: 10/13/17 05:00 10/13/17 05:00 PT 17.1 SECONDS (9.4-12.5) H 10/11/17 14:50 INR 1.49 (0.93-1.08) H 10/11/17 14:50 APTT 87.8 Seconds (25.1-36.5) H 10/13/17 13:00 - Constitutional Appears: Non-toxic, No Acute Distress, Chronically Ill - Head Exam Head Exam: ATRAUMATIC, NORMOCEPHALIC - Eye Exam Eye Exam: EOMI, PERRL Pupil Exam: NORMAL ACCOMODATION, PERRL - ENT Exam ENT Exam: Mucous Membranes Moist, Normal External Ear Exam, TM's Normal Bilaterally - Neck Exam Neck Exam: Full ROM, Normal Inspection - Respiratory Exam Respiratory Exam: NORMAL BREATHING PATTERN. absent: Rales, Rhonchi, Wheezes - Cardiovascular Exam Cardiovascular Exam: REGULAR RHYTHM, RRR, +S1, +S2 - GI/Abdominal Exam GI & Abdominal Exam: Soft, Normal Bowel Sounds. absent: Distended, Tenderness - Extremities Exam Extremities Exam: Full ROM, Normal Inspection - Neurological Exam Neurological Exam: Alert, Awake, CN II-XII Intact, Oriented x3 - Psychiatric Exam Psychiatric exam: Normal Affect, Normal Mood - Skin Skin Exam: Intact, Normal Color Assessment and Plan - Assessment and Plan (Free Text) Assessment: 72 yo male with respiratory distress at home. Presented with SOB and required intubation and ventilation once in the [facility] ER. Patient with significant leukocytosis and borderline fevers here at [facility]. Procalcitonin sent. On Cefepime, Vancomycin IV, and Azithromycin. Started on Tamiflu. CT scan showing RML/RLL consolidation/infiltrates. Current antibiotic regimen is reasonable start point. Procalcitonin results of 18.11. Flynn cultures sent. Patient with lactic acidosis and electrolyte abnormalities. Hyponatremia. Acute renal failure with GFR less than 20 and creatinine of 4.1 on admission. Extubated yesterday. Improving. Pneumonia with RLL infiltrate on chest x-ray. Remains on Vancomycin IV, Azithromycin, and Cefepime for treatment. Most electrolyte abnormalities have normalized. Still elevated creatinine at 2.7. Urine cultures with gram negative rods. Thank you for allowing me to participate in the care of the patient, we will follow with you.
[2017-10-13] MEDS: Budesonide 0.5 mg/2 ml Inhal Susp UD IH SCH (19:20)
--- NOTE | 2017-10-13 21:00 | PN ---
DATE: 10/12/2017 The patient was seen this Sunday morning in Intensive Care, Coronary Care Unit, bed #7. He is intubated and sedated, but more lightly sedated today. Able to answer questions by nodding his head. He is improving clinically. Aeration remains good on both right and left lung east with coarse rhonchi on the right.. Vital signs and labs have improved. Case was discussed with hospital house superintendent, Dr. Mueller. The patient may be ready for extubation later today if he continues to do well, but again, there is no hagan as we will need to follow his progress given his underlying coronary artery disease, COPD, severity of this pneumonia as well as his underlying traumatic brain injury. Dannie Ramon MD [facility]
[2017-10-14] MEDS: Insulin Reg-MEDIUM-Coverage SC SCH ×4 (00:14→17:31)
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
[2017-10-14] MEDS: diltiaZEM IVPB 100mg in NS 100 ML IV PRN ×3 (01:49→17:45)
[2017-10-14] MEDS: Albuterol 0.083% Inhal Sol (2.5 mg/3 mL) UD IH SCH ×4 (01:55→19:57)
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
[2017-10-14 04:43] LABS: ARTERIAL BLOOD GAS HCO3 24.6 mmol/L (21-28); ARTERIAL BLOOD GAS HEMOGLOBIN 13.8 g/dL (11.7-17.4); ARTERIAL BLOOD GAS O2 CAPACITY 18.9 mL/dl (16-24); ARTERIAL BLOOD GAS O2 CONTENT 18.7 ML/dl (15-23); ARTERIAL BLOOD GAS O2 SAT 99.1 % (95-98); ARTERIAL BLOOD GAS PCO2 37 mm/Hg (35-45); ARTERIAL BLOOD GAS PH 7.43 (7.35-7.45); ARTERIAL BLOOD GAS TCO2 25.7 mmol.L (22-28)
[2017-10-14 05:48] LABS: BASO # 0.02 K/mm3 (0.0-2.0); BASO % 0.1 % (0.0-3.0); GRAN # 14.98 (1.4-6.5); GRAN % 87.6 % (50.0-68.0); HEMOGLOBIN 12.5 g/dL (14.0-18.0); LYMPH # 0.5 (1.2-3.4); MEAN CELL VOLUME 99.2 fl (80.0-105.0); MEAN CORPUSCULAR HEMOGLOBIN 33.6 pg (25.0-35.0); MEAN CORPUSCULAR HGB CONC 33.9 g/dl (31.0-37.0); MEAN PLATELET VOLUME 11.6 fl (7.0-11.0); MONO # 1.6 (0.1-0.6); MONO % 9.3 % (1.0-6.0); RBC 3.72 10^6/uL (3.5-6.1); RED CELL DISTRIBUTION WIDTH 14.6 % (11.5-14.5); WHITE BLOOD COUNT 17.1 10^3/ul (4.5-11.0)
[2017-10-14 06:08] LABS: ALB/GLOB RATIO 0.8 (1.1-1.8); ALBUMIN 2.8 g/dL (3.0-4.8)
[2017-10-14] MEDS: Budesonide 0.5 mg/2 ml Inhal Susp UD IH SCH ×2 (08:14→19:57)
--- NOTE | 2017-10-14 08:52 | CP.PCM.PN ---
Subjective - Date & Time of Evaluation Date of Evaluation: 10/14/17 Time of Evaluation: 07:05 - Subjective Subjective: Pt seen and examined, complaining of mild SOB, wheezing. Denies CP. Objective - Vital Signs/Intake and Output Vital Signs (last 24 hours): Temp Pulse Resp BP Pulse Ox 99.9 F H 83 27 H 152/67 H 96 10/14/17 05:59 10/14/17 06:00 10/14/17 05:59 10/14/17 08:41 10/14/17 05:59 Intake and Output: 10/14/17 10/14/17 06:59 18:59 Intake Total 526 Output Total 500 Balance 26 - Medications Medications: Current Medications Albuterol Sulfate (Albuterol 0.083% Inhal Lydia (2.5 Mg/3 Ml) Ud) 2.5 mg IH Q2H PRN PRN Reason: Shortness of Breath Albuterol Sulfate (Albuterol 0.083% Inhal Lydia (2.5 Mg/3 Ml) Ud) 2.5 mg IH [id number] [facility] Last Admin: 10/14/17 08:14 Dose: 2.5 mg Budesonide (Pulmicort Respules) 0.5 mg IH [id number] [facility] Last Admin: 10/14/17 08:14 Dose: 0.5 mg Diltiazem HCl (Cardizem) 60 mg PO QID [facility] Last Admin: 10/13/17 21:13 Dose: 60 mg Cefepime HCl (Maxipime 1gm) 1 gm in 100 mls @ 100 mls/hr IVPB Q12 [facility] PRN Reason: Protocol Last Admin: 10/13/17 21:12 Dose: 100 mls/hr Vancomycin HCl (Vancomycin 1gm) 1 gm in 250 mls @ 167 mls/hr IVPB DAILY [facility] PRN Reason: Protocol Last Admin: 10/13/17 09:25 Dose: 167 mls/hr Azithromycin (Zithromax 500mg In Ns) 500 mg in 250 mls @ 167 mls/hr IVPB DAILY [facility] PRN Reason: Protocol Last Admin: 10/13/17 09:26 Dose: 167 mls/hr Heparin Sodium/Sodium Chloride (Heparin 34580 Units/250ml 1/2 Normal Saline) 25 ,000 units in 250 mls @ 10.05 mls/hr IV .Q24H PRN; Protocol; 9.55 UNITS/KG/HR PRN Reason: ADJUST RATE PER PROTOCOL Last Titration: 10/13/17 16:00 Dose: 10 units/kg/hr, 10.523 mls/hr [id number] IVPB 100mg in NS (Cardizem 100mg In Ns) 100 mls @ 5 mls/hr IV .Q20H PRN; Protocol; 5 MG/HR PRN Reason: TITRATE PER MD ORDER Last Admin: 10/14/17 06:41 Dose: 15 mg/hr, 15 mls/hr Insulin Human Regular (Humulin R Med) 0 units SC Q6H [facility] PRN Reason: Protocol Last Admin: 10/14/17 05:56 Dose: 2 units Methylprednisolone (Solu-Medrol) 40 mg IVP Q8 [facility] Oseltamivir Phosphate (Tamiflu Susp) 30 mg PO DAILY [facility] PRN Reason: Protocol Last Admin: 10/13/17 09:42 Dose: 30 mg Pantoprazole Sodium (Protonix Inj) 40 mg IVP DAILY [facility] Last Admin: 10/13/17 09:24 Dose: 40 mg - Labs Labs: 10/14/17 05:00 10/14/17 05:00 PT 17.1 SECONDS (9.4-12.5) H 10/11/17 14:50 INR 1.49 (0.93-1.08) H 10/11/17 14:50 APTT 68.8 Seconds (25.1-36.5) H 10/14/17 05:00 - Constitutional Appears: Non-toxic, No Acute Distress - Eye Exam Eye Exam: Normal appearance - ENT Exam ENT Exam: Mucous Membranes Moist - Respiratory Exam Respiratory Exam: Prolonged Expiratory Phase, Wheezes, NORMAL BREATHING PATTERN - Cardiovascular Exam Cardiovascular Exam: REGULAR RHYTHM, +S1, +S2 - GI/Abdominal Exam GI & Abdominal Exam: Soft, Normal Bowel Sounds - Extremities Exam Extremities Exam: Pedal Edema - Neurological Exam Neurological Exam: Alert, Awake - Psychiatric Exam Psychiatric exam: Normal Affect Assessment and Plan - Assessment and Plan (Free Text) Assessment: 72yo male a/w resp failure, PNA PNA Respiratory failure, resolved Renal Failure Severe Sepsis COPD - currently afebrile, HD stable, comfortable in NAD, in NSR HR 80s, off Cardizem drip - Patient continues to be on heparin drip - on exam, lungs with diffuse wheezing and rales, given Solumedrol 125mg IV x 1 , and Lasix 40mg IV Recommend: - cont with supp o2 as needed, BIPAP at night - Duonebs PRN - Pulmicort BID - start Solumedrol 40mg IV q8hr - Lasix 40mg IV daily - cont with broad spectrum antibiotics as per ID - BP control - cont with PO cardizem, cont with Heparin drip - cardiology eval - obtain renal U/S - renal follow up - GI ppx - DVT ppx - monitor in MICU
[2017-10-14] MEDS: Azithromycin 500MG/NS 250ml 500 MG/250 ML BAG IVPB SCH (09:28)
[2017-10-14] MEDS: Cefepime 1gm in NS 100ml 1 GM/100 ML BAG IVPB SCH ×2 (09:29→21:30)
[2017-10-14] MEDS: Vancomycin 1gm in NS 250ml 1 GM/250 ML BAG IVPB SCH (09:30)
[2017-10-14] MEDS: Oseltamivir 6 MG/ML PO SCH (09:53)
--- NOTE | 2017-10-14 10:56 | RAD ---
HISTORY: intubated COMPARISON: October 13, 2017. FINDINGS: LUNGS: Worsening infiltrates primarily right lower lobe. PLEURA: No significant pleural effusion identified, no pneumothorax apparent. CARDIOVASCULAR: No significant interval change compared to the prior examination(s). OSSEOUS STRUCTURES: No significant abnormalities. VISUALIZED UPPER ABDOMEN: Normal. OTHER FINDINGS: Removal of support apparatus since the prior study: Nasogastric tube. IMPRESSION: Progressive right lower lobe infiltrates.
[2017-10-14] MEDS: MethylPREDNISolone 40 mg Vial IVP SCH ×2 (14:13→21:31)
[2017-10-14] MEDS: Heparin25000 units/250ml 1/2NS 25,000 UNITS/250 ML BAG IV PRN (16:00)
--- NOTE | 2017-10-14 19:07 | CP.PCM.PN ---
Subjective - Date & Time of Evaluation Date of Evaluation: 10/14/17 Time of Evaluation: 18:00 - Subjective Subjective: Infectious Disease Follow Up: October 14, 2017 72 yo male presenting with SOB and respiratory distress at home. When entering through the ER, the patient was started on BiPAP and given Lasix. 15 minutes afterwards, the patient had worsening SOB and required intubation. Influenza testing was negative. Multiple electrolyte abnormalities especially hyponatremia and elevated creatinine. Patient is acidotic as well. Most of the information taken from the patient's chart. As the patient is intubated and ventilated now, unable to ask the patient any additional questions. The patient has no recent previous hospitalizations (last hospitalization in 2012). Procalcitonin up to 18.11. Extubated yesterday and appears to be doing well. Off BiPAP. WBC has dropped dramatically to 12.9. Most of his electrolyte abnormalities have improved. However, creatinine still remains high. Urine cultures showing gram negative elan identified as Proteus. Sensitive to Cefepime. Currently on Cefepime and Vancomycin. Creatinine slowly improving. Objective - Vital Signs/Intake and Output Vital Signs (last 24 hours): Temp Pulse Resp BP Pulse Ox 99.5 F 151 H 27 H 157/107 H 90 L 10/14/17 18:06 10/14/17 18:06 10/14/17 18:00 10/14/17 18:00 10/14/17 18:06 Intake and Output: 10/14/17 10/15/17 18:59 06:59 Intake Total 1747.79 Output Total 3525 Balance -1777.21 - Medications Medications: Current Medications Albuterol Sulfate (Albuterol 0.083% Inhal Lydia (2.5 Mg/3 Ml) Ud) 2.5 mg IH Q2H PRN PRN Reason: Shortness of Breath Albuterol Sulfate (Albuterol 0.083% Inhal Lydia (2.5 Mg/3 Ml) Ud) 2.5 mg IH [id number] [facility] Last Admin: 10/14/17 13:20 Dose: 2.5 mg Budesonide (Pulmicort Respules) 0.5 mg IH [id number] [facility] Last Admin: 10/14/17 08:14 Dose: 0.5 mg Diltiazem HCl (Cardizem) 60 mg PO QID [facility] Last Admin: 10/14/17 17:14 Dose: 60 mg Cefepime HCl (Maxipime 1gm) 1 gm in 100 mls @ 100 mls/hr IVPB Q12 [facility] PRN Reason: Protocol Last Admin: 10/14/17 09:29 Dose: 100 mls/hr Vancomycin HCl (Vancomycin 1gm) 1 gm in 250 mls @ 167 mls/hr IVPB DAILY [facility] PRN Reason: Protocol Last Admin: 10/14/17 09:30 Dose: 167 mls/hr Azithromycin (Zithromax 500mg In Ns) 500 mg in 250 mls @ 167 mls/hr IVPB DAILY [facility] PRN Reason: Protocol Last Admin: 10/14/17 09:28 Dose: 167 mls/hr Heparin Sodium/Sodium Chloride (Heparin 39247 Units/250ml 1/2 Normal Saline) 25 ,000 units in 250 mls @ 10.05 mls/hr IV .Q24H PRN; Protocol; 9.55 UNITS/KG/HR PRN Reason: ADJUST RATE PER PROTOCOL Last Admin: 10/14/17 16:00 Dose: 10 units/kg/hr, 10.523 mls/hr diltiaZEM IVPB 100mg in NS (Cardizem 100mg In Ns) 100 mls @ 5 mls/hr IV .Q20H PRN; Protocol; 5 MG/HR PRN Reason: TITRATE PER MD ORDER Last Titration: 10/14/17 18:00 Dose: 15 mg/hr, 15 mls/hr Insulin Human Regular (Humulin R Med) 0 units SC Q6H [facility] PRN Reason: Protocol Last Admin: 10/14/17 17:31 Dose: 10 units Methylprednisolone (Solu-Medrol) 40 mg IVP Q8 [facility] Last Admin: 10/14/17 14:13 Dose: 40 mg Oseltamivir Phosphate (Tamiflu Susp) 30 mg PO DAILY [facility] PRN Reason: Protocol Last Admin: 10/14/17 09:53 Dose: 30 mg Pantoprazole Sodium (Protonix Inj) 40 mg IVP DAILY [facility] Last Admin: 10/14/17 09:30 Dose: 40 mg - Labs Labs: 10/14/17 05:00 10/14/17 05:00 PT 17.1 SECONDS (9.4-12.5) H 10/11/17 14:50 INR 1.49 (0.93-1.08) H 10/11/17 14:50 APTT 68.8 Seconds (25.1-36.5) H 10/14/17 05:00 - Constitutional Appears: Non-toxic, No Acute Distress, Chronically Ill - Head Exam Head Exam: ATRAUMATIC, NORMOCEPHALIC - Eye Exam Eye Exam: EOMI, PERRL Pupil Exam: NORMAL ACCOMODATION, PERRL - ENT Exam ENT Exam: Mucous Membranes Moist, Normal External Ear Exam, TM's Normal Bilaterally - Neck Exam Neck Exam: Full ROM, Normal Inspection - Respiratory Exam Respiratory Exam: Wheezes, NORMAL BREATHING PATTERN. absent: Rales, Rhonchi - Cardiovascular Exam Cardiovascular Exam: REGULAR RHYTHM, RRR, +S1, +S2 - GI/Abdominal Exam GI & Abdominal Exam: Soft, Normal Bowel Sounds. absent: Distended, Tenderness - Extremities Exam Extremities Exam: Full ROM, Normal Inspection - Neurological Exam Neurological Exam: Alert, Awake, CN II-XII Intact, Oriented x3 - Psychiatric Exam Psychiatric exam: Normal Affect, Normal Mood - Skin Skin Exam: Intact, Normal Color Assessment and Plan - Assessment and Plan (Free Text) Assessment: 72 yo male with respiratory distress at home. Presented with SOB and required intubation and ventilation once in the [facility]. Patient with significant leukocytosis and borderline fevers here at [facility]. Procalcitonin sent. On Cefepime, Vancomycin IV, and Azithromycin. Started on Tamiflu. CT scan showing RML/RLL consolidation/infiltrates. Current antibiotic regimen is reasonable start point. Procalcitonin results of 18.11. Flynn cultures sent. Patient with lactic acidosis and electrolyte abnormalities. Hyponatremia. Acute renal failure with GFR less than 20 and creatinine of 4.1 on admission. Extubated yesterday. Improving. Pneumonia with RLL infiltrate on chest x-ray. Remains on Vancomycin IV, Azithromycin, and Cefepime for treatment. Most electrolyte abnormalities have normalized. Still elevated creatinine at 2.3. Urine cultures with gram negative rods identified as Proteus. Thank you for allowing me to participate in the care of the patient, we will follow with you.
[2017-10-14] MEDS ORDERED: Insulin Regular 100 UNITS in Sodium Chloride 0.9% 99 ML IV PRN (19:48)
--- NOTE | 2017-10-14 23:38 | PN ---
DATE: 10/14/2017 SUBJECTIVE: The patient was seen this Sunday morning in intensive care unit, Coronary Care, bed 7. He is awake, sitting up in bed, extubated, BiPAP mask has been temporarily removed, so he can eat. He does get short of breath with mask off . He has improved a bit, but quite weak. Continues to breath on his own with BiPAP for assistance. PHYSICAL EXAMINATION: HEAD AND NECK: Otherwise unremarkable. Conjunctivae pink. CHEST: Shows increased AP diameter. ABDOMEN: Obese. HEART: Regular, borderline tachycardic on a 100. ASSESSMENT AND PLAN: I spoke with the patient. 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 He remembers seeing a disintegrator during his hospital stay 3 or 4 years ago. So we will ask Pulmonary to re-consult and help to improve the post ICU phase of this hospital stay with such a severe pneumonia. I do not think he is ready to transfer out of ICU today. I already explained the patient that he will need some physical therapy and rehab time after that, so in few days, we will make a decision about Transitional Care Unit. Dannie Ramon MD MTDD
[2017-10-15] MEDS: Insulin Reg-MEDIUM-Coverage SC SCH (00:15)
[2017-10-15] MEDS: Albuterol 0.083% Inhal Sol (2.5 mg/3 mL) UD IH SCH (02:38)
[2017-10-15] MEDS: MethylPREDNISolone 40 mg Vial IVP SCH ×3 (05:16→22:12)
[2017-10-15] MEDS: Pantoprazole 40 mg Susp UD PO SCH (05:18)
[2017-10-15 05:27] LABS: ARTERIAL BLOOD GAS O2 CAPACITY 17.9 mL/dl (16-24); ARTERIAL BLOOD GAS O2 CONTENT 17.8 ML/dl (15-23); ARTERIAL BLOOD GAS O2 SAT 99.5 % (95-98); ARTERIAL BLOOD GAS PCO2 38 mm/Hg (35-45); ARTERIAL BLOOD GAS PH 7.52 (7.35-7.45); ARTERIAL BLOOD GAS TCO2 32.2 mmol.L (22-28)
[2017-10-15] MEDS: diltiaZEM IVPB 100mg in NS 100 ML IV PRN ×2 (06:05→18:39)
[2017-10-15] MEDS ORDERED: Insulin Detemir 100 units/ml Vial (Levemir) SC SCH (07:15)
[2017-10-15 07:20] LABS: BASO # 0.02 K/mm3 (0.0-2.0); BASO % 0.1 % (0.0-3.0); GRAN # 14.15 (1.4-6.5); GRAN % 87.6 % (50.0-68.0); HEMOGLOBIN 13.2 g/dL (14.0-18.0); LYMPH # 0.5 (1.2-3.4); LYMPH % 3.3 % (22.0-35.0); MEAN CELL VOLUME 98.7 fl (80.0-105.0); MEAN CORPUSCULAR HEMOGLOBIN 33.7 pg (25.0-35.0); MEAN CORPUSCULAR HGB CONC 34.1 g/dl (31.0-37.0); MEAN PLATELET VOLUME 12.1 fl (7.0-11.0); MONO # 1.5 (0.1-0.6); PLATELET COUNT 193 10^3/uL (120.0-450.0); RBC 3.92 10^6/uL (3.5-6.1); RED CELL DISTRIBUTION WIDTH 14.7 % (11.5-14.5); WHITE BLOOD COUNT 16.2 10^3/ul (4.5-11.0)
--- NOTE | 2017-10-15 07:38 | CP.PCM.PN ---
Subjective - Date & Time of Evaluation Date of Evaluation: 10/15/17 Time of Evaluation: 07:35 Objective - Vital Signs/Intake and Output Vital Signs (last 24 hours): Temp Pulse Resp BP Pulse Ox 99.5 F 82 23 161/65 H 92 L 10/15/17 07:01 10/15/17 07:01 10/15/17 07:01 10/15/17 07:01 10/15/17 07:01 Intake and Output: 10/15/17 10/15/17 06:59 18:59 Intake Total 574.75 Output Total 2850 Balance -2275.25 - Medications Medications: Current Medications Albuterol Sulfate (Albuterol 0.083% Inhal Lydia (2.5 Mg/3 Ml) Ud) 2.5 mg IH Q2H PRN PRN Reason: Shortness of Breath Budesonide (Pulmicort Respules) 0.5 mg IH [id number] [facility] Last Admin: 10/14/17 19:57 Dose: 0.5 mg Diltiazem HCl (Cardizem) 60 mg PO QID [facility] Last Admin: 10/14/17 17:14 Dose: 60 mg Cefepime HCl (Maxipime 1gm) 1 gm in 100 mls @ 100 mls/hr IVPB Q12 [facility] PRN Reason: Protocol Last Admin: 10/14/17 21:30 Dose: 100 mls/hr Vancomycin HCl (Vancomycin 1gm) 1 gm in 250 mls @ 167 mls/hr IVPB DAILY [facility] PRN Reason: Protocol Last Admin: 10/14/17 09:30 Dose: 167 mls/hr Azithromycin (Zithromax 500mg In Ns) 500 mg in 250 mls @ 167 mls/hr IVPB DAILY GLORAI PRN Reason: Protocol Last Admin: 10/14/17 09:28 Dose: 167 mls/hr Heparin Sodium/Sodium Chloride (Heparin 17038 Units/250ml 1/2 Normal Saline) 25 ,000 units in 250 mls @ 10.05 mls/hr IV .Q24H PRN; Protocol; 9.55 UNITS/KG/HR PRN Reason: ADJUST RATE PER PROTOCOL Last Admin: 10/14/17 16:00 Dose: 10 units/kg/hr, 10.523 mls/hr diltiaZEM IVPB 100mg in NS (Cardizem 100mg In Ns) 100 mls @ 5 mls/hr IV .Q20H PRN; Protocol; 5 MG/HR PRN Reason: TITRATE PER MD ORDER Last Titration: 10/15/17 06:42 Dose: 20 mg/hr, 20 mls/hr Insulin Human Regular 100 (units/ Sodium Chloride) 100 mls @ 0 mls/hr IV .Q0M PRN; Protocol; Per Protocol PRN Reason: TITRATE PER MD ORDER Last Titration: 10/15/17 06:12 Dose: 3 ml/hr, 3 mls/hr Insulin Human Regular (Humulin R Med) 0 units SC Q6H [facility] PRN Reason: Protocol Last Admin: 10/15/17 00:15 Dose: Not Given Insulin Human Regular (Humulin R Low) 0 units SC ACHS [facility] PRN Reason: Protocol Levalbuterol HCl (Xopenex) 1.25 mg IH [id number] [facility] Methylprednisolone (Solu-Medrol) 40 mg IVP Q8 [facility] Last Admin: 10/15/17 05:16 Dose: 40 mg Oseltamivir Phosphate (Tamiflu Susp) 30 mg PO DAILY [facility] PRN Reason: Protocol Last Admin: 10/14/17 09:53 Dose: 30 mg Pantoprazole Sodium (Protonix Susp) 40 mg PO 0600 [facility] Last Admin: 10/15/17 05:18 Dose: 40 mg - Labs Labs: 10/15/17 05:30 10/14/17 05:00 PT 17.1 SECONDS (9.4-12.5) H 10/11/17 14:50 INR 1.49 (0.93-1.08) H 10/11/17 14:50 APTT 68.8 Seconds (25.1-36.5) H 10/14/17 05:00
--- NOTE | 2017-10-15 07:40 | CP.CCUPN ---
<NakiapetersonJenni lenz - Last Filed: 10/15/17 13:19> CCU Subjective - Physician Review Events Since Last Encounter (Free Text): 10/15/17 0815 Patient remains on cardizem drip overnight, HR back to sinus. Subjective (Free Text): 10/15/17 0935 Patient with non complaints. denies pain, denies nausea, vomiting or diarrhea. Critical Care Time Spent (in minutes): 45 CCU Objective - Vital Signs / Intake & Output Vital Signs (Last 4 hours): Vital Signs Temp Pulse Resp BP Pulse Ox 10/15/17 07:01 99.5 F 82 23 161/65 H 92 L 10/15/17 07:00 99.5 F 81 24 89 L 10/15/17 06:00 82 125/80 10/15/17 05:59 99.7 F H 142 H 26 H 95 10/15/17 05:00 99.9 F H 135 H 25 H 148/86 90 L 10/15/17 04:00 130/73 10/15/17 03:59 99.9 F H 106 H 23 94 L Intake and Output (Last 8hrs): Intake & Output 10/14/17 10/15/17 10/15/17 22:59 06:59 14:59 Intake Total 1724.79 574.75 Output Total 3525 2850 Balance -1800.21 -2275.25 Intake: IV 1004.79 524.75 Left Hand 175 306 Right Forearm 600 58 Oral 720 50 Output: Urine 3525 2850 Urethral ([place]) 3525 2850 Other: # Bowel Movements 2 - Physical Exam Head: Positive for: Normocephalic, Abrasion (left forehead (when questioned about fall, patient nods head that he fell)) Pupils: Positive for: PERRL Extroacular Muscles: Positive for: EOMI Mouth: Positive for: Moist Mucous Membranes Neck: Positive for: Normal Range of Motion Respiratory/Chest: Positive for: Respiratory Distress, Rhonchi Cardiovascular: Positive for: Irregular Rhythm, Tachycardic. Negative for: Regular Rate and Rhythm Abdomen: Positive for: Normal Bowel Sounds. Negative for: Tenderness, Distention, Peritoneal Signs Genitourinary Male: Positive for: Other (incontinent of stool and urine) Lower Extremity: Positive for: Other (chronic stasis skin changes). Negative for: Edema Psychiatric: Positive for: Alert, Oriented x 3 - Medications Active Medications: Active Medications Generic Name Dose Route Start Last Admin Trade Name Freq PRN Reason Stop Dose Admin Albuterol Sulfate 2.5 mg 10/11/17 17:34 Albuterol 0.083% Inhal Lydia (2.5 Mg/3 Ml) Ud IH Q2H PRN Shortness of Breath Budesonide 0.5 mg 10/13/17 20:00 10/14/17 19:57 Pulmicort Respules IH 0.5 mg [id number] GLORIA Administration Diltiazem HCl 60 mg 10/13/17 10:00 10/14/17 17:14 Cardizem PO 60 mg QID GLORIA Administration Cefepime HCl 1 gm in 100 mls @ 100 mls/hr 10/11/17 22:00 10/14/17 21:30 Maxipime 1gm IVPB 100 mls/hr Q12 GLORIA Administration Protocol Vancomycin HCl 1 gm in 250 mls @ 167 mls/hr 10/12/17 10:00 10/14/17 09:30 Vancomycin 1gm IVPB 167 mls/hr DAILY GLORIA Administration Protocol Azithromycin 500 mg in 250 mls @ 167 mls/hr 10/12/17 10:00 10/14/17 09:28 Zithromax 500mg In Ns IVPB 167 mls/hr DAILY GLORIA Administration Protocol Heparin Sodium/Sodium Chloride 25,000 units in 250 mls @ 10.05 mls/hr 00:54 10/14/17 16:00 Heparin 04568 Units/250ml 1/2 Normal Saline IV 10 units/kg/hr .Q24H PRN 10.523 mls/hr ADJUST RATE PER PROTOCOL Administration Protocol 9.55 UNITS/KG/HR diltiaZEM IVPB 100mg in NS 100 mls @ 5 mls/hr 10/14/17 01:36 10/15/17 06:42 Cardizem 100mg In Ns IV 20 mg/hr .Q20H PRN 20 mls/hr TITRATE PER MD ORDER Titration Protocol 5 MG/HR Insulin Human Regular 100 100 mls @ 0 mls/hr 10/14/17 19:48 10/15/17 06:12 units/ Sodium Chloride IV 3 ml/hr .Q0M PRN 3 mls/hr TITRATE PER MD ORDER Titration Protocol Per Protocol Insulin Human Regular 0 units 10/11/17 18:15 10/15/17 00:15 Humulin R Med SC Not Given Q6H [facility] Protocol Insulin Human Regular 0 units 10/15/17 11:30 Humulin R Low SC ACHS [facility] Protocol Levalbuterol HCl 1.25 mg 10/15/17 08:00 Xopenex IH [id number] GLORIA Methylprednisolone 40 mg 10/14/17 14:00 10/15/17 05:16 Solu-Medrol IVP 40 mg Q8 GLORIA Administration Oseltamivir Phosphate 30 mg 10/12/17 10:00 10/14/17 09:53 Tamiflu Susp PO 30 mg DAILY GLORIA Administration Protocol Pantoprazole Sodium 40 mg 10/15/17 06:00 10/15/17 05:18 Protonix Susp PO 40 mg 0600 GLORIA Administration - Patient Studies Lab Studies: Microbiology Studies 10/11/17 20:41 Urine Culture - Preliminary Urine,Clean Catch Proteus Mirabilis Lab Studies 10/15/17 10/15/17 10/15/17 Range/Units 06:59 06:07 05:30 WBC 16.2 H (4.5-11.0) 10^3/ul RBC 3.92 (3.5-6.1) 10^6/uL Hgb 13.2 L (14.0-18.0) g/dL Hct 38.7 L (42.0-52.0) % MCV 98.7 (80.0-105.0) fl MCH 33.7 (25.0-35.0) pg MCHC 34.1 (31.0-37.0) g/dl RDW 14.7 H (11.5-14.5) % Plt Count 193 (120.0-450.0) 10^3/uL MPV 12.1 H (7.0-11.0) fl Gran % 87.6 H (50.0-68.0) % Lymph % (Auto) 3.3 L (22.0-35.0) % [place] % (Auto) 9.0 H (1.0-6.0) % Eos % (Auto) 0.0 L (1.5-5.0) % Baso % (Auto) 0.1 (0.0-3.0) % Gran # 14.15 H (1.4-6.5) Lymph # (Auto) 0.5 L (1.2-3.4) [place] # (Auto) 1.5 H (0.1-0.6) Eos # (Auto) 0.0 (0.0-0.7) Baso # (Auto) 0.02 (0.0-2.0) K/mm3 pCO2 (35-45) mm/Hg pO2 (80-100) mm/Hg HCO3 (21-28) mmol/L ABG pH (7.35-7.45) ABG Total CO2 (22-28) mmol.L ABG O2 Saturation (95-98) % ABG O2 Content (15-23) ML/dl ABG Base Excess (-2.0-3.0) mmol/L ABG Hemoglobin (11.7-17.4) g/dL ABG Carboxyhemoglobin (0.5-1.5) % POC ABG HHb (Measured) (0-5) % ABG Methemoglobin (0.0-3.0) % ABG O2 Capacity (16-24) mL/dl Hgb O2 Saturation (95.0-98.0) % FiO2 % POC Glucose (mg/dL) 281 H 285 H (65-110) mg/dL 10/15/17 10/15/17 10/15/17 Range/Units 05:24 05:15 04:24 WBC (4.5-11.0) 10^3/ul RBC (3.5-6.1) 10^6/uL Hgb (14.0-18.0) g/dL Hct (42.0-52.0) % MCV (80.0-105.0) fl MCH (25.0-35.0) pg MCHC (31.0-37.0) g/dl RDW (11.5-14.5) % Plt Count (120.0-450.0) 10^3/uL MPV (7.0-11.0) fl Gran % (50.0-68.0) % Lymph % (Auto) (22.0-35.0) % [place] % (Auto) (1.0-6.0) % Eos % (Auto) (1.5-5.0) % Baso % (Auto) (0.0-3.0) % Gran # (1.4-6.5) Lymph # (Auto) (1.2-3.4) [place] # (Auto) (0.1-0.6) Eos # (Auto) (0.0-0.7) Baso # (Auto) (0.0-2.0) K/mm3 pCO2 38 (35-45) mm/Hg pO2 120.0 H (80-100) mm/Hg HCO3 31.0 H (21-28) mmol/L ABG pH 7.52 H (7.35-7.45) ABG Total CO2 32.2 H (22-28) mmol.L ABG O2 Saturation 99.5 H (95-98) % ABG O2 Content 17.8 (15-23) ML/dl ABG Base Excess 7.7 H (-2.0-3.0) mmol/L ABG Hemoglobin 13.0 (11.7-17.4) g/dL ABG Carboxyhemoglobin 1.5 (0.5-1.5) % POC ABG HHb (Measured) 0.5 (0-5) % ABG Methemoglobin 1.4 (0.0-3.0) % ABG O2 Capacity 17.9 (16-24) mL/dl Hgb O2 Saturation 96.6 (95.0-98.0) % FiO2 60.0 % POC Glucose (mg/dL) 338 H 312 H (65-110) mg/dL 10/15/17 10/15/17 10/15/17 Range/Units 03:16 02:16 01:00 WBC (4.5-11.0) 10^3/ul RBC (3.5-6.1) 10^6/uL Hgb (14.0-18.0) g/dL Hct (42.0-52.0) % MCV (80.0-105.0) fl MCH (25.0-35.0) pg MCHC (31.0-37.0) g/dl RDW (11.5-14.5) % Plt Count (120.0-450.0) 10^3/uL MPV (7.0-11.0) fl Gran % (50.0-68.0) % Lymph % (Auto) (22.0-35.0) % [place] % (Auto) (1.0-6.0) % Eos % (Auto) (1.5-5.0) % Baso % (Auto) (0.0-3.0) % Gran # (1.4-6.5) Lymph # (Auto) (1.2-3.4) [place] # (Auto) (0.1-0.6) Eos # (Auto) (0.0-0.7) Baso # (Auto) (0.0-2.0) K/mm3 pCO2 (35-45) mm/Hg pO2 (80-100) mm/Hg HCO3 (21-28) mmol/L ABG pH (7.35-7.45) ABG Total CO2 (22-28) mmol.L ABG O2 Saturation (95-98) % ABG O2 Content (15-23) ML/dl ABG Base Excess (-2.0-3.0) mmol/L ABG Hemoglobin (11.7-17.4) g/dL ABG Carboxyhemoglobin (0.5-1.5) % POC ABG HHb (Measured) (0-5) % ABG Methemoglobin (0.0-3.0) % ABG O2 Capacity (16-24) mL/dl Hgb O2 Saturation (95.0-98.0) % FiO2 % POC Glucose (mg/dL) 356 H 371 H 410 H* (65-110) mg/dL 10/15/17 10/14/17 10/14/17 Range/Units 00:07 23:15 22:21 WBC (4.5-11.0) 10^3/ul RBC (3.5-6.1) 10^6/uL Hgb (14.0-18.0) g/dL Hct (42.0-52.0) % MCV (80.0-105.0) fl MCH (25.0-35.0) pg MCHC (31.0-37.0) g/dl RDW (11.5-14.5) % Plt Count (120.0-450.0) 10^3/uL MPV (7.0-11.0) fl Gran % (50.0-68.0) % Lymph % (Auto) (22.0-35.0) % [place] % (Auto) (1.0-6.0) % Eos % (Auto) (1.5-5.0) % Baso % (Auto) (0.0-3.0) % Gran # (1.4-6.5) Lymph # (Auto) (1.2-3.4) [place] # (Auto) (0.1-0.6) Eos # (Auto) (0.0-0.7) Baso # (Auto) (0.0-2.0) K/mm3 pCO2 (35-45) mm/Hg pO2 (80-100) mm/Hg HCO3 (21-28) mmol/L ABG pH (7.35-7.45) ABG Total CO2 (22-28) mmol.L ABG O2 Saturation (95-98) % ABG O2 Content (15-23) ML/dl ABG Base Excess (-2.0-3.0) mmol/L ABG Hemoglobin (11.7-17.4) g/dL ABG Carboxyhemoglobin (0.5-1.5) % POC ABG HHb (Measured) (0-5) % ABG Methemoglobin (0.0-3.0) % ABG O2 Capacity (16-24) mL/dl Hgb O2 Saturation (95.0-98.0) % FiO2 % POC Glucose (mg/dL) 407 H* 441 H* 492 H* (65-110) mg/dL 10/14/17 10/14/17 10/14/17 Range/Units 21:01 17:29 11:22 WBC (4.5-11.0) 10^3/ul RBC (3.5-6.1) 10^6/uL Hgb (14.0-18.0) g/dL Hct (42.0-52.0) % MCV (80.0-105.0) fl MCH (25.0-35.0) pg MCHC (31.0-37.0) g/dl RDW (11.5-14.5) % Plt Count (120.0-450.0) 10^3/uL MPV (7.0-11.0) fl Gran % (50.0-68.0) % Lymph % (Auto) (22.0-35.0) % [place] % (Auto) (1.0-6.0) % Eos % (Auto) (1.5-5.0) % Baso % (Auto) (0.0-3.0) % Gran # (1.4-6.5) Lymph # (Auto) (1.2-3.4) [place] # (Auto) (0.1-0.6) Eos # (Auto) (0.0-0.7) Baso # (Auto) (0.0-2.0) K/mm3 pCO2 (35-45) mm/Hg pO2 (80-100) mm/Hg HCO3 (21-28) mmol/L ABG pH (7.35-7.45) ABG Total CO2 (22-28) mmol.L ABG O2 Saturation (95-98) % ABG O2 Content (15-23) ML/dl ABG Base Excess (-2.0-3.0) mmol/L ABG Hemoglobin (11.7-17.4) g/dL ABG Carboxyhemoglobin (0.5-1.5) % POC ABG HHb (Measured) (0-5) % ABG Methemoglobin (0.0-3.0) % ABG O2 Capacity (16-24) mL/dl Hgb O2 Saturation (95.0-98.0) % FiO2 % POC Glucose (mg/dL) 487 H* 430 H* 338 H (65-110) mg/dL Laboratory Results - last 24 hr 10/14/17 10/14/17 10/14/17 11:22 17:29 21:01 WBC RBC Hgb Hct MCV MCH MCHC RDW Plt Count MPV Gran % Lymph % (Auto) [place] % (Auto) Eos % (Auto) Baso % (Auto) Gran # Lymph # (Auto) [place] # (Auto) Eos # (Auto) Baso # (Auto) pCO2 pO2 HCO3 ABG pH ABG Total CO2 ABG O2 Saturation ABG O2 Content ABG Base Excess ABG Hemoglobin ABG Carboxyhemoglobin POC ABG HHb (Measured) ABG Methemoglobin ABG O2 Capacity Hgb O2 Saturation FiO2 POC Glucose (mg/dL) 338 H 430 H* 487 H* 10/14/17 10/14/17 10/15/17 22:21 23:15 00:07 WBC RBC Hgb Hct MCV MCH MCHC RDW Plt Count MPV Gran % Lymph % (Auto) [place] % (Auto) Eos % (Auto) Baso % (Auto) Gran # Lymph # (Auto) [place] # (Auto) Eos # (Auto) Baso # (Auto) pCO2 pO2 HCO3 ABG pH ABG Total CO2 ABG O2 Saturation ABG O2 Content ABG Base Excess ABG Hemoglobin ABG Carboxyhemoglobin POC ABG HHb (Measured) ABG Methemoglobin ABG O2 Capacity Hgb O2 Saturation FiO2 POC Glucose (mg/dL) 492 H* 441 H* 407 H* 10/15/17 10/15/17 10/15/17 01:00 02:16 03:16 WBC RBC Hgb Hct MCV MCH MCHC RDW Plt Count MPV Gran % Lymph % (Auto) [place] % (Auto) Eos % (Auto) Baso % (Auto) Gran # Lymph # (Auto) [place] # (Auto) Eos # (Auto) Baso # (Auto) pCO2 pO2 HCO3 ABG pH ABG Total CO2 ABG O2 Saturation ABG O2 Content ABG Base Excess ABG Hemoglobin ABG Carboxyhemoglobin POC ABG HHb (Measured) ABG Methemoglobin ABG O2 Capacity Hgb O2 Saturation FiO2 POC Glucose (mg/dL) 410 H* 371 H 356 H 10/15/17 10/15/17 10/15/17 04:24 05:15 05:24 WBC RBC Hgb Hct MCV MCH MCHC RDW Plt Count MPV Gran % Lymph % (Auto) [place] % (Auto) Eos % (Auto) Baso % (Auto) Gran # Lymph # (Auto) [place] # (Auto) Eos # (Auto) Baso # (Auto) pCO2 38 pO2 120.0 H HCO3 31.0 H ABG pH 7.52 H ABG Total CO2 32.2 H ABG O2 Saturation 99.5 H ABG O2 Content 17.8 ABG Base Excess 7.7 H ABG Hemoglobin 13.0 ABG Carboxyhemoglobin 1.5 POC ABG HHb (Measured) 0.5 ABG Methemoglobin 1.4 ABG O2 Capacity 17.9 Hgb O2 Saturation 96.6 FiO2 60.0 POC Glucose (mg/dL) 312 H 338 H 10/15/17 10/15/17 10/15/17 05:30 06:07 06:59 WBC 16.2 H RBC 3.92 Hgb 13.2 L Hct 38.7 L MCV 98.7 MCH 33.7 MCHC 34.1 RDW 14.7 H Plt Count 193 MPV 12.1 H Gran % 87.6 H Lymph % (Auto) 3.3 L [place] % (Auto) 9.0 H Eos % (Auto) 0.0 L Baso % (Auto) 0.1 Gran # 14.15 H Lymph # (Auto) 0.5 L [place] # (Auto) 1.5 H Eos # (Auto) 0.0 Baso # (Auto) 0.02 pCO2 pO2 HCO3 ABG pH ABG Total CO2 ABG O2 Saturation ABG O2 Content ABG Base Excess ABG Hemoglobin ABG Carboxyhemoglobin POC ABG HHb (Measured) ABG Methemoglobin ABG O2 Capacity Hgb O2 Saturation FiO2 POC Glucose (mg/dL) 285 H 281 H Fingerstick Blood Sugar Results: 281 Critical Care Progress Note - Ventilator Checklist Head of Bed 30 Degrees: Yes - Prophylaxis GI Prophylaxis GI: PPI - Prophylaxis DVT Prophylaxis DVT: Heparin SQ - Nutrition Nutrition: Nutrition Category Date Time Status Dysphagia/Modified Consistency Diet [DIET] Diets 10/13/17 Dinner Ordered Assessment/Plan - Assessment and Plan (Free Text) Assessment: 72yo male a/w resp failure, PNA s/p intubation and extubation. Now in RVR afib. Plan: Neurology: stable at baseline Pulm- Hypoxemic respiratory failure likely secondary to pneumonia- - respiratory failure is resolving - Saturating well on bipap - head of bed above 35 degrees - continue with bronchodilators prn and standing dose - On solu medrol tapering dose - Also on pulmocort - on abx for pneumonia Cardio: - Severe sepsis with transient hypotention, responded well to IVF - RVR afib- now on Cardizem drip, and heparin drip. - Cardiology consulted - Will attempt to stop Cardizem drip and transient to po Cardizem - Maintain MAP above 65%. Renal: FABRICIO on CKD- likely pre-renal versus intrinsic - creatinine fluctuating - will consider nephro consult if no improvement Endo: Uncontrolled DM, patient was on insulin drip. - will discontinue the drip and start patient on levemir 20 units - insulin sliding scale achs. Heme: h/h stable, will continue to monitor ID: Severe sepsis due to pneumonia and urosepsis - Leukocytosis trended down, and afebrile - Will continue with cefepime/vanco/zithromax. - no growth on blood culture, urine with proteus - ID following GI: on dysphasia diet. on ppi for gi prophylaxis. Tobacco abuse- on nicotine patch. DVT prophylaxis: on heparin drip for rvr afib. Patient seen, examined and case discussed with Dr Agee. - Date & Time Date: 10/15/17 Time: 12:10 <Rosas Agee - Last Filed: 10/15/17 13:31> CCU Objective - Vital Signs / Intake & Output Vital Signs (Last 4 hours): Vital Signs Temp Pulse Resp BP Pulse Ox 10/15/17 12:41 99.5 F 92 H 96 10/15/17 12:30 167/65 H 10/15/17 12:29 99.5 F 88 24 95 10/15/17 12:00 99.5 F 88 23 175/65 H 95 10/15/17 11:30 99.5 F 87 20 159/66 H 92 L 10/15/17 11:25 88 10/15/17 11:04 87 10/15/17 11:00 99.7 F H 91 H 23 152/62 H 92 L 10/15/17 10:30 99.9 F H 90 21 153/63 H 94 L 10/15/17 10:00 95 H 155/63 H 10/15/17 09:59 99.9 F H 94 H 24 96 10/15/17 09:30 99.7 F H 139 H 23 169/72 H 88 L Intake and Output (Last 8hrs): Intake & Output 10/14/17 10/15/17 10/15/17 22:59 06:59 14:59 Intake Total 1724.79 574.75 Output Total 3525 2850 Balance -1800.21 -2275.25 Intake: IV 1004.79 524.75 Left Hand 175 306 Right Forearm 600 58 Oral 720 50 Output: Urine 3525 2850 Urethral ([place]) 3525 2850 Other: # Bowel Movements 2 - Medications Active Medications: Active Medications Generic Name Dose Route Start Last Admin Trade Name Freq PRN Reason Stop Dose Admin Albuterol Sulfate 2.5 mg 10/11/17 17:34 Albuterol 0.083% Inhal Lydia (2.5 Mg/3 Ml) Ud IH Q2H PRN Shortness of Breath Budesonide 0.5 mg 10/13/17 20:00 10/15/17 08:46 Pulmicort Respules IH 0.5 mg [id number] GLORIA Administration Diltiazem HCl 60 mg 10/15/17 14:00 Cardizem PO QID GLORIA Cefepime HCl 1 gm in 100 mls @ 100 mls/hr 10/11/17 22:00 10/15/17 10:41 Maxipime 1gm IVPB 100 mls/hr Q12 GLORIA Administration Protocol Vancomycin HCl 1 gm in 250 mls @ 167 mls/hr 10/12/17 10:00 10/14/17 09:30 Vancomycin 1gm IVPB 167 mls/hr DAILY GLORIA Administration Protocol Azithromycin 500 mg in 250 mls @ 167 mls/hr 10/12/17 10:00 10/15/17 10:47 Zithromax 500mg In Ns IVPB Not Given DAILY GLORIA Protocol Heparin Sodium/Sodium Chloride 25,000 units in 250 mls @ 10.05 mls/hr 00:54 10/14/17 16:00 Heparin 85256 Units/250ml 1/2 Normal Saline IV 10 units/kg/hr .Q24H PRN 10.523 mls/hr ADJUST RATE PER PROTOCOL Administration Protocol 9.55 UNITS/KG/HR diltiaZEM IVPB 100mg in NS 100 mls @ 5 mls/hr 10/15/17 09:15 Cardizem 100mg In Ns IV .Q20H PRN TITRATE PER MD ORDER Protocol 5 MG/HR Insulin Human Regular 0 units 10/15/17 11:30 Humulin R Low SC ACHS GLORIA Protocol Levalbuterol HCl 1.25 mg 10/15/17 08:00 10/15/17 08:46 Xopenex IH 1.25 mg [id number] GLORIA Administration Methylprednisolone 40 mg 10/14/17 14:00 10/15/17 05:16 Solu-Medrol IVP 40 mg Q8 GLORIA Administration Pantoprazole Sodium 40 mg 10/15/17 06:00 10/15/17 05:18 Protonix Susp PO 40 mg 0600 GLORIA Administration - Patient Studies Lab Studies: Microbiology Studies 10/11/17 20:41 Urine Culture - Final Urine,Clean Catch Proteus Mirabilis Lab Studies 10/15/17 10/15/17 10/15/17 Range/Units 11:11 09:49 08:51 WBC (4.5-11.0) 10^3/ul RBC (3.5-6.1) 10^6/uL Hgb (14.0-18.0) g/dL Hct (42.0-52.0) % MCV (80.0-105.0) fl MCH (25.0-35.0) pg MCHC (31.0-37.0) g/dl RDW (11.5-14.5) % Plt Count (120.0-450.0) 10^3/uL MPV (7.0-11.0) fl Gran % (50.0-68.0) % Lymph % (Auto) (22.0-35.0) % [place] % (Auto) (1.0-6.0) % Eos % (Auto) (1.5-5.0) % Baso % (Auto) (0.0-3.0) % Gran # (1.4-6.5) Lymph # (Auto) (1.2-3.4) [place] # (Auto) (0.1-0.6) Eos # (Auto) (0.0-0.7) Baso # (Auto) (0.0-2.0) K/mm3 Neutrophils % (Manual) (50.0-70.0) % Band Neutrophils % (0-2) % Lymphocytes % (Manual) (22.0-35.0) % Monocytes % (Manual) (1.0-6.0) % Platelet Evaluation (NORMAL) pCO2 (35-45) mm/Hg pO2 (80-100) mm/Hg HCO3 (21-28) mmol/L ABG pH (7.35-7.45) ABG Total CO2 (22-28) mmol.L ABG O2 Saturation (95-98) % ABG O2 Content (15-23) ML/dl ABG Base Excess (-2.0-3.0) mmol/L ABG Hemoglobin (11.7-17.4) g/dL ABG Carboxyhemoglobin (0.5-1.5) % POC ABG HHb (Measured) (0-5) % ABG Methemoglobin (0.0-3.0) % ABG O2 Capacity (16-24) mL/dl Hgb O2 Saturation (95.0-98.0) % FiO2 % Sodium (132-148) mmol/L Potassium (3.6-5.0) mmol/L Chloride (98-107) mmol/L Carbon Dioxide (21-33) mmol/L Anion Gap (10-20) BUN (7-21) mg/dL Creatinine (0.8-1.5) mg/dl Est GFR ( Amer) Est GFR (Non-Af Amer) POC Glucose (mg/dL) 391 H 381 H 296 H (65-110) mg/dL Random Glucose (70-110) mg/dL Calcium (8.4-10.5) mg/dL Total Bilirubin (0.2-1.3) mg/dL AST (17-59) U/L ALT (7-56) U/L Alkaline Phosphatase (38-126) U/L Total Protein (5.8-8.3) g/dL Albumin (3.0-4.8) g/dL Globulin gm/dL Albumin/Globulin Ratio (1.1-1.8) 10/15/17 10/15/17 10/15/17 Range/Units 07:57 06:59 06:07 WBC (4.5-11.0) 10^3/ul RBC (3.5-6.1) 10^6/uL Hgb (14.0-18.0) g/dL Hct (42.0-52.0) % MCV (80.0-105.0) fl MCH (25.0-35.0) pg MCHC (31.0-37.0) g/dl RDW (11.5-14.5) % Plt Count (120.0-450.0) 10^3/uL MPV (7.0-11.0) fl Gran % (50.0-68.0) % Lymph % (Auto) (22.0-35.0) % [place] % (Auto) (1.0-6.0) % Eos % (Auto) (1.5-5.0) % Baso % (Auto) (0.0-3.0) % Gran # (1.4-6.5) Lymph # (Auto) (1.2-3.4) [place] # (Auto) (0.1-0.6) Eos # (Auto) (0.0-0.7) Baso # (Auto) (0.0-2.0) K/mm3 Neutrophils % (Manual) (50.0-70.0) % Band Neutrophils % (0-2) % Lymphocytes % (Manual) (22.0-35.0) % Monocytes % (Manual) (1.0-6.0) % Platelet Evaluation (NORMAL) pCO2 (35-45) mm/Hg pO2 (80-100) mm/Hg HCO3 (21-28) mmol/L ABG pH (7.35-7.45) ABG Total CO2 (22-28) mmol.L ABG O2 Saturation (95-98) % ABG O2 Content (15-23) ML/dl ABG Base Excess (-2.0-3.0) mmol/L ABG Hemoglobin (11.7-17.4) g/dL ABG Carboxyhemoglobin (0.5-1.5) % POC ABG HHb (Measured) (0-5) % ABG Methemoglobin (0.0-3.0) % ABG O2 Capacity (16-24) mL/dl Hgb O2 Saturation (95.0-98.0) % FiO2 % Sodium (132-148) mmol/L Potassium (3.6-5.0) mmol/L Chloride (98-107) mmol/L Carbon Dioxide (21-33) mmol/L Anion Gap (10-20) BUN (7-21) mg/dL Creatinine (0.8-1.5) mg/dl Est GFR ( Amer) Est GFR (Non-Af Amer) POC Glucose (mg/dL) 269 H 281 H 285 H (65-110) mg/dL Random Glucose (70-110) mg/dL Calcium (8.4-10.5) mg/dL Total Bilirubin (0.2-1.3) mg/dL AST (17-59) U/L ALT (7-56) U/L Alkaline Phosphatase (38-126) U/L Total Protein (5.8-8.3) g/dL Albumin (3.0-4.8) g/dL Globulin gm/dL Albumin/Globulin Ratio (1.1-1.8) 10/15/17 10/15/17 10/15/17 Range/Units 05:30 05:30 05:24 WBC 16.2 H (4.5-11.0) 10^3/ul RBC 3.92 (3.5-6.1) 10^6/uL Hgb 13.2 L (14.0-18.0) g/dL Hct 38.7 L (42.0-52.0) % MCV 98.7 (80.0-105.0) fl MCH 33.7 (25.0-35.0) pg MCHC 34.1 (31.0-37.0) g/dl RDW 14.7 H (11.5-14.5) % Plt Count 193 (120.0-450.0) 10^3/uL MPV 12.1 H (7.0-11.0) fl Gran % 87.6 H (50.0-68.0) % Lymph % (Auto) 3.3 L (22.0-35.0) % [place] % (Auto) 9.0 H (1.0-6.0) % Eos % (Auto) 0.0 L (1.5-5.0) % Baso % (Auto) 0.1 (0.0-3.0) % Gran # 14.15 H (1.4-6.5) Lymph # (Auto) 0.5 L (1.2-3.4) [place] # (Auto) 1.5 H (0.1-0.6) Eos # (Auto) 0.0 (0.0-0.7) Baso # (Auto) 0.02 (0.0-2.0) K/mm3 Neutrophils % (Manual) 88 H (50.0-70.0) % Band Neutrophils % 1 (0-2) % Lymphocytes % (Manual) 6 L (22.0-35.0) % Monocytes % (Manual) 5 (1.0-6.0) % Platelet Evaluation Normal (NORMAL) pCO2 38 (35-45) mm/Hg pO2 120.0 H (80-100) mm/Hg HCO3 31.0 H (21-28) mmol/L ABG pH 7.52 H (7.35-7.45) ABG Total CO2 32.2 H (22-28) mmol.L ABG O2 Saturation 99.5 H (95-98) % ABG O2 Content 17.8 (15-23) ML/dl ABG Base Excess 7.7 H (-2.0-3.0) mmol/L ABG Hemoglobin 13.0 (11.7-17.4) g/dL ABG Carboxyhemoglobin 1.5 (0.5-1.5) % POC ABG HHb (Measured) 0.5 (0-5) % ABG Methemoglobin 1.4 (0.0-3.0) % ABG O2 Capacity 17.9 (16-24) mL/dl Hgb O2 Saturation 96.6 (95.0-98.0) % FiO2 60.0 % Sodium 154 H (132-148) mmol/L Potassium 3.6 (3.6-5.0) mmol/L Chloride 108 H (98-107) mmol/L Carbon Dioxide 30 (21-33) mmol/L Anion Gap 20 (10-20) BUN 46 H (7-21) mg/dL Creatinine 2.6 H (0.8-1.5) mg/dl Est GFR ( Amer) 29 Est GFR (Non-Af Amer) 24 POC Glucose (mg/dL) (65-110) mg/dL Random Glucose 340 H* (70-110) mg/dL Calcium 8.6 (8.4-10.5) mg/dL Total Bilirubin 1.1 (0.2-1.3) mg/dL AST 51 (17-59) U/L ALT 40 (7-56) U/L Alkaline Phosphatase 128 H D (38-126) U/L Total Protein 7.1 (5.8-8.3) g/dL Albumin 3.2 (3.0-4.8) g/dL Globulin 4.0 gm/dL Albumin/Globulin Ratio 0.8 L (1.1-1.8) 10/15/17 10/15/17 10/15/17 Range/Units 05:15 04:24 03:16 WBC (4.5-11.0) 10^3/ul RBC (3.5-6.1) 10^6/uL Hgb (14.0-18.0) g/dL Hct (42.0-52.0) % MCV (80.0-105.0) fl MCH (25.0-35.0) pg MCHC (31.0-37.0) g/dl RDW (11.5-14.5) % Plt Count (120.0-450.0) 10^3/uL MPV (7.0-11.0) fl Gran % (50.0-68.0) % Lymph % (Auto) (22.0-35.0) % [place] % (Auto) (1.0-6.0) % Eos % (Auto) (1.5-5.0) % Baso % (Auto) (0.0-3.0) % Gran # (1.4-6.5) Lymph # (Auto) (1.2-3.4) [place] # (Auto) (0.1-0.6) Eos # (Auto) (0.0-0.7) Baso # (Auto) (0.0-2.0) K/mm3 Neutrophils % (Manual) (50.0-70.0) % Band Neutrophils % (0-2) % Lymphocytes % (Manual) (22.0-35.0) % Monocytes % (Manual) (1.0-6.0) % Platelet Evaluation (NORMAL) pCO2 (35-45) mm/Hg pO2 (80-100) mm/Hg HCO3 (21-28) mmol/L ABG pH (7.35-7.45) ABG Total CO2 (22-28) mmol.L ABG O2 Saturation (95-98) % ABG O2 Content (15-23) ML/dl ABG Base Excess (-2.0-3.0) mmol/L ABG Hemoglobin (11.7-17.4) g/dL ABG Carboxyhemoglobin (0.5-1.5) % POC ABG HHb (Measured) (0-5) % ABG Methemoglobin (0.0-3.0) % ABG O2 Capacity (16-24) mL/dl Hgb O2 Saturation (95.0-98.0) % FiO2 % Sodium (132-148) mmol/L Potassium (3.6-5.0) mmol/L Chloride (98-107) mmol/L Carbon Dioxide (21-33) mmol/L Anion Gap (10-20) BUN (7-21) mg/dL Creatinine (0.8-1.5) mg/dl Est GFR ( Amer) Est GFR (Non-Af Amer) POC Glucose (mg/dL) 338 H 312 H 356 H (65-110) mg/dL Random Glucose (70-110) mg/dL Calcium (8.4-10.5) mg/dL Total Bilirubin (0.2-1.3) mg/dL AST (17-59) U/L ALT (7-56) U/L Alkaline Phosphatase (38-126) U/L Total Protein (5.8-8.3) g/dL Albumin (3.0-4.8) g/dL Globulin gm/dL Albumin/Globulin Ratio (1.1-1.8) 10/15/17 10/15/17 10/15/17 Range/Units 02:16 01:00 00:07 WBC (4.5-11.0) 10^3/ul RBC (3.5-6.1) 10^6/uL Hgb (14.0-18.0) g/dL Hct (42.0-52.0) % MCV (80.0-105.0) fl MCH (25.0-35.0) pg MCHC (31.0-37.0) g/dl RDW (11.5-14.5) % Plt Count (120.0-450.0) 10^3/uL MPV (7.0-11.0) fl Gran % (50.0-68.0) % Lymph % (Auto) (22.0-35.0) % [place] % (Auto) (1.0-6.0) % Eos % (Auto) (1.5-5.0) % Baso % (Auto) (0.0-3.0) % Gran # (1.4-6.5) Lymph # (Auto) (1.2-3.4) [place] # (Auto) (0.1-0.6) Eos # (Auto) (0.0-0.7) Baso # (Auto) (0.0-2.0) K/mm3 Neutrophils % (Manual) (50.0-70.0) % Band Neutrophils % (0-2) % Lymphocytes % (Manual) (22.0-35.0) % Monocytes % (Manual) (1.0-6.0) % Platelet Evaluation (NORMAL) pCO2 (35-45) mm/Hg pO2 (80-100) mm/Hg HCO3 (21-28) mmol/L ABG pH (7.35-7.45) ABG Total CO2 (22-28) mmol.L ABG O2 Saturation (95-98) % ABG O2 Content (15-23) ML/dl ABG Base Excess (-2.0-3.0) mmol/L ABG Hemoglobin (11.7-17.4) g/dL ABG Carboxyhemoglobin (0.5-1.5) % POC ABG HHb (Measured) (0-5) % ABG Methemoglobin (0.0-3.0) % ABG O2 Capacity (16-24) mL/dl Hgb O2 Saturation (95.0-98.0) % FiO2 % Sodium (132-148) mmol/L Potassium (3.6-5.0) mmol/L Chloride (98-107) mmol/L Carbon Dioxide (21-33) mmol/L Anion Gap (10-20) BUN (7-21) mg/dL Creatinine (0.8-1.5) mg/dl Est GFR ( Amer) Est GFR (Non-Af Amer) POC Glucose (mg/dL) 371 H 410 H* 407 H* (65-110) mg/dL Random Glucose (70-110) mg/dL Calcium (8.4-10.5) mg/dL Total Bilirubin (0.2-1.3) mg/dL AST (17-59) U/L ALT (7-56) U/L Alkaline Phosphatase (38-126) U/L Total Protein (5.8-8.3) g/dL Albumin (3.0-4.8) g/dL Globulin gm/dL Albumin/Globulin Ratio (1.1-1.8) 10/14/17 10/14/17 10/14/17 Range/Units 23:15 22:21 21:01 WBC (4.5-11.0) 10^3/ul RBC (3.5-6.1) 10^6/uL Hgb (14.0-18.0) g/dL Hct (42.0-52.0) % MCV (80.0-105.0) fl MCH (25.0-35.0) pg MCHC (31.0-37.0) g/dl RDW (11.5-14.5) % Plt Count (120.0-450.0) 10^3/uL MPV (7.0-11.0) fl Gran % (50.0-68.0) % Lymph % (Auto) (22.0-35.0) % [place] % (Auto) (1.0-6.0) % Eos % (Auto) (1.5-5.0) % Baso % (Auto) (0.0-3.0) % Gran # (1.4-6.5) Lymph # (Auto) (1.2-3.4) [place] # (Auto) (0.1-0.6) Eos # (Auto) (0.0-0.7) Baso # (Auto) (0.0-2.0) K/mm3 Neutrophils % (Manual) (50.0-70.0) % Band Neutrophils % (0-2) % Lymphocytes % (Manual) (22.0-35.0) % Monocytes % (Manual) (1.0-6.0) % Platelet Evaluation (NORMAL) pCO2 (35-45) mm/Hg pO2 (80-100) mm/Hg HCO3 (21-28) mmol/L ABG pH (7.35-7.45) ABG Total CO2 (22-28) mmol.L ABG O2 Saturation (95-98) % ABG O2 Content (15-23) ML/dl ABG Base Excess (-2.0-3.0) mmol/L ABG Hemoglobin (11.7-17.4) g/dL ABG Carboxyhemoglobin (0.5-1.5) % POC ABG HHb (Measured) (0-5) % ABG Methemoglobin (0.0-3.0) % ABG O2 Capacity (16-24) mL/dl Hgb O2 Saturation (95.0-98.0) % FiO2 % Sodium (132-148) mmol/L Potassium (3.6-5.0) mmol/L Chloride (98-107) mmol/L Carbon Dioxide (21-33) mmol/L Anion Gap (10-20) BUN (7-21) mg/dL Creatinine (0.8-1.5) mg/dl Est GFR ( Amer) Est GFR (Non-Af Amer) POC Glucose (mg/dL) 441 H* 492 H* 487 H* (65-110) mg/dL Random Glucose (70-110) mg/dL Calcium (8.4-10.5) mg/dL Total Bilirubin (0.2-1.3) mg/dL AST (17-59) U/L ALT (7-56) U/L Alkaline Phosphatase (38-126) U/L Total Protein (5.8-8.3) g/dL Albumin (3.0-4.8) g/dL Globulin gm/dL Albumin/Globulin Ratio (1.1-1.8) 10/14/17 10/14/17 Range/Units 17:29 11:22 WBC (4.5-11.0) 10^3/ul RBC (3.5-6.1) 10^6/uL Hgb (14.0-18.0) g/dL Hct (42.0-52.0) % MCV (80.0-105.0) fl MCH (25.0-35.0) pg MCHC (31.0-37.0) g/dl RDW (11.5-14.5) % Plt Count (120.0-450.0) 10^3/uL MPV (7.0-11.0) fl Gran % (50.0-68.0) % Lymph % (Auto) (22.0-35.0) % [place] % (Auto) (1.0-6.0) % Eos % (Auto) (1.5-5.0) % Baso % (Auto) (0.0-3.0) % Gran # (1.4-6.5) Lymph # (Auto) (1.2-3.4) [place] # (Auto) (0.1-0.6) Eos # (Auto) (0.0-0.7) Baso # (Auto) (0.0-2.0) K/mm3 Neutrophils % (Manual) (50.0-70.0) % Band Neutrophils % (0-2) % Lymphocytes % (Manual) (22.0-35.0) % Monocytes % (Manual) (1.0-6.0) % Platelet Evaluation (NORMAL) pCO2 (35-45) mm/Hg pO2 (80-100) mm/Hg HCO3 (21-28) mmol/L ABG pH (7.35-7.45) ABG Total CO2 (22-28) mmol.L ABG O2 Saturation (95-98) % ABG O2 Content (15-23) ML/dl ABG Base Excess (-2.0-3.0) mmol/L ABG Hemoglobin (11.7-17.4) g/dL ABG Carboxyhemoglobin (0.5-1.5) % POC ABG HHb (Measured) (0-5) % ABG Methemoglobin (0.0-3.0) % ABG O2 Capacity (16-24) mL/dl Hgb O2 Saturation (95.0-98.0) % FiO2 % Sodium (132-148) mmol/L Potassium (3.6-5.0) mmol/L Chloride (98-107) mmol/L Carbon Dioxide (21-33) mmol/L Anion Gap (10-20) BUN (7-21) mg/dL Creatinine (0.8-1.5) mg/dl Est GFR ( Amer) Est GFR (Non-Af Amer) POC Glucose (mg/dL) 430 H* 338 H (65-110) mg/dL Random Glucose (70-110) mg/dL Calcium (8.4-10.5) mg/dL Total Bilirubin (0.2-1.3) mg/dL AST (17-59) U/L ALT (7-56) U/L Alkaline Phosphatase (38-126) U/L Total Protein (5.8-8.3) g/dL Albumin (3.0-4.8) g/dL Globulin gm/dL Albumin/Globulin Ratio (1.1-1.8) Laboratory Results - last 24 hr 10/14/17 10/14/17 10/14/17 11:22 17:29 21:01 WBC RBC Hgb Hct MCV MCH MCHC RDW Plt Count MPV Gran % Lymph % (Auto) [place] % (Auto) Eos % (Auto) Baso % (Auto) Gran # Lymph # (Auto) [place] # (Auto) Eos # (Auto) Baso # (Auto) Neutrophils % (Manual) Band Neutrophils % Lymphocytes % (Manual) Monocytes % (Manual) Platelet Evaluation pCO2 pO2 HCO3 ABG pH ABG Total CO2 ABG O2 Saturation ABG O2 Content ABG Base Excess ABG Hemoglobin ABG Carboxyhemoglobin POC ABG HHb (Measured) ABG Methemoglobin ABG O2 Capacity Hgb O2 Saturation FiO2 Sodium Potassium Chloride Carbon Dioxide Anion Gap BUN Creatinine Est GFR ( Amer) Est GFR (Non-Af Amer) POC Glucose (mg/dL) 338 H 430 H* 487 H* Random Glucose Calcium Total Bilirubin AST ALT Alkaline Phosphatase Total Protein Albumin Globulin Albumin/Globulin Ratio 10/14/17 10/14/17 10/15/17 22:21 23:15 00:07 WBC RBC Hgb Hct MCV MCH MCHC RDW Plt Count MPV Gran % Lymph % (Auto) [place] % (Auto) Eos % (Auto) Baso % (Auto) Gran # Lymph # (Auto) [place] # (Auto) Eos # (Auto) Baso # (Auto) Neutrophils % (Manual) Band Neutrophils % Lymphocytes % (Manual) Monocytes % (Manual) Platelet Evaluation pCO2 pO2 HCO3 ABG pH ABG Total CO2 ABG O2 Saturation ABG O2 Content ABG Base Excess ABG Hemoglobin ABG Carboxyhemoglobin POC ABG HHb (Measured) ABG Methemoglobin ABG O2 Capacity Hgb O2 Saturation FiO2 Sodium Potassium Chloride Carbon Dioxide Anion Gap BUN Creatinine Est GFR ( Amer) Est GFR (Non-Af Amer) POC Glucose (mg/dL) 492 H* 441 H* 407 H* Random Glucose Calcium Total Bilirubin AST ALT Alkaline Phosphatase Total Protein Albumin Globulin Albumin/Globulin Ratio 10/15/17 10/15/17 10/15/17 01:00 02:16 03:16 WBC RBC Hgb Hct MCV MCH MCHC RDW Plt Count MPV Gran % Lymph % (Auto) [place] % (Auto) Eos % (Auto) Baso % (Auto) Gran # Lymph # (Auto) [place] # (Auto) Eos # (Auto) Baso # (Auto) Neutrophils % (Manual) Band Neutrophils % Lymphocytes % (Manual) Monocytes % (Manual) Platelet Evaluation pCO2 pO2 HCO3 ABG pH ABG Total CO2 ABG O2 Saturation ABG O2 Content ABG Base Excess ABG Hemoglobin ABG Carboxyhemoglobin POC ABG HHb (Measured) ABG Methemoglobin ABG O2 Capacity Hgb O2 Saturation FiO2 Sodium Potassium Chloride Carbon Dioxide Anion Gap BUN Creatinine Est GFR ( Amer) Est GFR (Non-Af Amer) POC Glucose (mg/dL) 410 H* 371 H 356 H Random Glucose Calcium Total Bilirubin AST ALT Alkaline Phosphatase Total Protein Albumin Globulin Albumin/Globulin Ratio 10/15/17 10/15/17 10/15/17 04:24 05:15 05:24 WBC RBC Hgb Hct MCV MCH MCHC RDW Plt Count MPV Gran % Lymph % (Auto) [place] % (Auto) Eos % (Auto) Baso % (Auto) Gran # Lymph # (Auto) [place] # (Auto) Eos # (Auto) Baso # (Auto) Neutrophils % (Manual) Band Neutrophils % Lymphocytes % (Manual) Monocytes % (Manual) Platelet Evaluation pCO2 38 pO2 120.0 H HCO3 31.0 H ABG pH 7.52 H ABG Total CO2 32.2 H ABG O2 Saturation 99.5 H ABG O2 Content 17.8 ABG Base Excess 7.7 H ABG Hemoglobin 13.0 ABG Carboxyhemoglobin 1.5 POC ABG HHb (Measured) 0.5 ABG Methemoglobin 1.4 ABG O2 Capacity 17.9 Hgb O2 Saturation 96.6 FiO2 60.0 Sodium Potassium Chloride Carbon Dioxide Anion Gap BUN Creatinine Est GFR ( Amer) Est GFR (Non-Af Amer) POC Glucose (mg/dL) 312 H 338 H Random Glucose Calcium Total Bilirubin AST ALT Alkaline Phosphatase Total Protein Albumin Globulin Albumin/Globulin Ratio 10/15/17 10/15/17 10/15/17 05:30 05:30 06:07 WBC 16.2 H RBC 3.92 Hgb 13.2 L Hct 38.7 L MCV 98.7 MCH 33.7 MCHC 34.1 RDW 14.7 H Plt Count 193 MPV 12.1 H Gran % 87.6 H Lymph % (Auto) 3.3 L [place] % (Auto) 9.0 H Eos % (Auto) 0.0 L Baso % (Auto) 0.1 Gran # 14.15 H Lymph # (Auto) 0.5 L [place] # (Auto) 1.5 H Eos # (Auto) 0.0 Baso # (Auto) 0.02 Neutrophils % (Manual) 88 H Band Neutrophils % 1 Lymphocytes % (Manual) 6 L Monocytes % (Manual) 5 Platelet Evaluation Normal pCO2 pO2 HCO3 ABG pH ABG Total CO2 ABG O2 Saturation ABG O2 Content ABG Base Excess ABG Hemoglobin ABG Carboxyhemoglobin POC ABG HHb (Measured) ABG Methemoglobin ABG O2 Capacity Hgb O2 Saturation FiO2 Sodium 154 H Potassium 3.6 Chloride 108 H Carbon Dioxide 30 Anion Gap 20 BUN 46 H Creatinine 2.6 H Est GFR ( Amer) 29 Est GFR (Non-Af Amer) 24 POC Glucose (mg/dL) 285 H Random Glucose 340 H* Calcium 8.6 Total Bilirubin 1.1 AST 51 ALT 40 Alkaline Phosphatase 128 H D Total Protein 7.1 Albumin 3.2 Globulin 4.0 Albumin/Globulin Ratio 0.8 L 10/15/17 10/15/17 10/15/17 06:59 07:57 08:51 WBC RBC Hgb Hct MCV MCH MCHC RDW Plt Count MPV Gran % Lymph % (Auto) [place] % (Auto) Eos % (Auto) Baso % (Auto) Gran # Lymph # (Auto) [place] # (Auto) Eos # (Auto) Baso # (Auto) Neutrophils % (Manual) Band Neutrophils % Lymphocytes % (Manual) Monocytes % (Manual) Platelet Evaluation pCO2 pO2 HCO3 ABG pH ABG Total CO2 ABG O2 Saturation ABG O2 Content ABG Base Excess ABG Hemoglobin ABG Carboxyhemoglobin POC ABG HHb (Measured) ABG Methemoglobin ABG O2 Capacity Hgb O2 Saturation FiO2 Sodium Potassium Chloride Carbon Dioxide Anion Gap BUN Creatinine Est GFR ( Amer) Est GFR (Non-Af Amer) POC Glucose (mg/dL) 281 H 269 H 296 H Random Glucose Calcium Total Bilirubin AST ALT Alkaline Phosphatase Total Protein Albumin Globulin Albumin/Globulin Ratio 10/15/17 10/15/17 09:49 11:11 WBC RBC Hgb Hct MCV MCH MCHC RDW Plt Count MPV Gran % Lymph % (Auto) [place] % (Auto) Eos % (Auto) Baso % (Auto) Gran # Lymph # (Auto) [place] # (Auto) Eos # (Auto) Baso # (Auto) Neutrophils % (Manual) Band Neutrophils % Lymphocytes % (Manual) Monocytes % (Manual) Platelet Evaluation pCO2 pO2 HCO3 ABG pH ABG Total CO2 ABG O2 Saturation ABG O2 Content ABG Base Excess ABG Hemoglobin ABG Carboxyhemoglobin POC ABG HHb (Measured) ABG Methemoglobin ABG O2 Capacity Hgb O2 Saturation FiO2 Sodium Potassium Chloride Carbon Dioxide Anion Gap BUN Creatinine Est GFR ( Amer) Est GFR (Non-Af Amer) POC Glucose (mg/dL) 381 H 391 H Random Glucose Calcium Total Bilirubin AST ALT Alkaline Phosphatase Total Protein Albumin Globulin Albumin/Globulin Ratio Critical Care Progress Note - Nutrition Nutrition: Nutrition Category Date Time Status Dysphagia/Modified Consistency Diet [DIET] Diets 10/13/17 Dinner Ordered Assessment/Plan - Assessment and Plan (Free Text) Plan: Pt seen and examined on rounds with resident, agree with note with following additions/exceptions: 72yo male a/w resp failure, PNA. Currently extubated, doing well, on BIPAP, will titrate off. Now in NSR, on PO cardizem, heparin drip. PNA Respiratory failure, resolved Renal Failure Severe Sepsis COPD - currently afebrile, HD stable, comfortable in NAD, in NSR HR 80s, off Cardizem drip - on exam, lungs with improved aeration, no wheezing, or rales Recommend: - cont with supp o2 as needed, BIPAP at night - Duonebs PRN - Pulmicort BID - Solumedrol 40mg IV q8hr - Lasix 40mg IV daily - cont with broad spectrum antibiotics as per ID - BP control - cont with PO cardizem, cont with Heparin drip - cardiology eval - obtain renal U/S - renal follow up - GI ppx - DVT ppx, heparin drip - Monitor in MICU
[2017-10-15 07:49] LABS: ALB/GLOB RATIO 0.8 (1.1-1.8); ALBUMIN 3.2 g/dL (3.0-4.8); CALCIUM 8.6 mg/dL (8.4-10.5)
[2017-10-15] MEDS ORDERED: Insulin Detemir 100 units/ml Vial (Levemir) SC STA (08:16)
[2017-10-15] MEDS: Azithromycin 500MG/NS 250ml 500 MG/250 ML BAG IVPB SCH ×2 (08:29→10:47)
--- NOTE | 2017-10-15 08:32 | RAD ---
HISTORY: intubated COMPARISON: 10/14/2017. FINDINGS: LUNGS: There has been no significant interval change in multifocal right lower lobe airspace disease. There is subsegmental atelectasis in the left lower lobe. The lungs are well inflated. PLEURA: No significant pleural effusion identified, no pneumothorax apparent. CARDIOVASCULAR: Normal. OSSEOUS STRUCTURES: No significant abnormalities. VISUALIZED UPPER ABDOMEN: Normal. OTHER FINDINGS: None. IMPRESSION: No significant interval change in presumable multifocal right lower lobe pneumonia. Follow-up to resolution is advised
[2017-10-15] MEDS: Levalbuterol 1.25 MG/3 ML Inhal Soln UD IH SCH ×3 (08:46→19:50)
[2017-10-15] MEDS: Budesonide 0.5 mg/2 ml Inhal Susp UD IH SCH ×2 (08:46→19:50)
--- NOTE | 2017-10-15 08:54 | CON ---
DATE: 10/14/2017 PULMONARY CONSULTATION The patient was seen and examined in Intensive Care Unit, on BiPAP. HISTORY OF PRESENT ILLNESS: The patient arrived via EMS, who found him at home, extremely short of breath. He was placed on BiPAP in transfer and continued with BiPAP in the emergency room; however, due to episode of severe shortness of breath after relative improvement, he required endotracheal intubation. Currently, he is extubated on BiPAP. The patient does not have regular PMD and he is a poor historian. Additional history is limited to the extent of note from emergency room. His pulse oximetry was 75% prior to intubation. I reviewed his pre-intubation blood gas, that revealed severe metabolic acidosis with no carbon dioxide retention and some hypoxia. ALLERGIES: NO KNOWN ALLERGIES. PAST MEDICAL HISTORY: He has a history of cardiac disease, history of chronic obstructive pulmonary disease, history of type 2 diabetes, history of hypothyroidism. FAMILY HISTORY: HTN, CAD HABITS: He is a former smoker. HOME MEDICATIONS: Unknown. REVIEW OF SYSTEMS: Conducted by reviewing all sources. RESPIRATORY: See history of present illness. CARDIOVASCULAR: No complaints of chest pain or palpitations. GASTROINTESTINAL: No recent history of nausea, vomiting. The rest of the systems were reviewed and found to be negative. PHYSICAL EXAMINATION: VITAL SIGNS: His temperature is 100.3, pulse 112, respirations 22, blood pressure 128/65. HEAD, EARS, NOSE AND THROAT: Within normal limits. He is on BiPAP. NECK: Supple, no jugular vein distention. CHEST: Obese. HEART: S1, S2. No S3, regular. LUNGS: Diffuse crackles, right more than left. Some wheezing. GASTROINTESTINAL: Soft, obese, nontender. No organomegaly. EXTREMITIES: 1+ pedal edema. SKIN: No acute skin rash. NEUROLOGIC: Limited at present time. LABORATORY DATA: On admission, his WBCs were 25,000 and sodium was reduced to 127. His creatinine was 4.1, BUN 43, platelet count 239,000. His venous blood gas revealed pH of 7.17. As I said, bicarbonate was very low and pCO2 was low as well. pO2 was acceptable after intubation. His today's blood work was reviewed by me and contained in plan note. ASSESSMENT: 1. Respiratory failure. 2. Severe metabolic acidosis. 3. Sepsis syndrome. 4. Renal failure. 5. Multiorgan system failure. 6. BiPAP dependency. 7. Bilateral pneumonia. PLAN: The patient is extubated; however, he is BiPAP dependant. Every attempt to wean him off BiPAP results in tachypnea, tachycardia and oxygen desaturation. He is currently comfortable on BiPAP 14/02. His oxygen saturation is in the low 90s. Physical exam revealed crackles and wheezes and today's chest x-ray demonstrates actually slight worsening of infiltrate on the right and the same infiltrate on the left, superimposed congestive heart failure cannot be ruled out. The patient was started on broad-spectrum antibiotics per Infectious Disease. Also prophylactic dose of Tamiflu, although his influenza A and B test were negative. We will continue with current antibiotic administration, steroids were administered for acute bronchospasm, should continue. His prognosis is extremely guarded due to lack of progression on chest x-ray and BiPAP dependency at the present time. Mik Newberry MD MTDD
[2017-10-15] MEDS ORDERED: diltiaZEM IVPB 100mg in NS 100 ML IV PRN (09:12)
[2017-10-15 10:16] LABS: BAND 1 % (0-2); LYMPHOCYTE 6 % (22.0-35.0); MONOCYTE 5 % (1.0-6.0); NEUTROPHIL 88 % (50.0-70.0)
[2017-10-15 10:17] LABS: PLATELET ESTIMATE NORMAL (NORMAL)
--- NOTE | 2017-10-15 10:31 | PN ---
DATE: 10/15/2017(630am-720am) PULMONARY NOTE SUBJECTIVE: The patient appears mildly short of breath. He is in no acute distress. PHYSICAL EXAMINATION VITAL SIGNS: Temperature is 99.7, pulse is 156, respiratory rate 22, blood pressure 157/68. Oxygen saturation on BiPAP is 95%. HEENT: Normocephalic, atraumatic. No JVD. CARDIOVASCULAR: Systolic ejection murmur at the lower left sternal border. No S3 gallop. LUNGS: Decreased breath sounds at the bases with crackles. Bilateral rhonchi and wheezing are appreciated. EXTREMITIES: Positive for edema. No cyanosis, no clubbing. Calves are nontender to palpation. GI: Abdomen is soft, nontender and nondistended. Bowel sounds are positive. SKIN: No acute rash. NEUROLOGIC: Limited at the present time. PERTINENT LABORATORY DATA: Chest x-ray was done this morning and reviewed. The chest x-ray today is certainly improved - with partial clearing of the right lower lobe infiltrate. Arterial blood gas was done on BiPAP with 60% oxygen. Results are: PH 7.52, pCO2 of 38, pO2 of 120. IMPRESSION: 1. Status post respiratory failure. 2. Right lower lobe pneumonia. 3. Chronic obstructive pulmonary disease. 4. Acute bronchospasm. 5. Cardiac arrhythmias. PLAN: The patient appears comfortable this morning. He is mildly short of breath, but in no acute distress. I did discuss the case with the night nurse at length. The night nurse did inform me that the patient did not have a good night overall. The patient was in atrial fibrillation last night. He is now in rapid supraventricular tachycardia. He is currently on a Cardizem drip. I would certainly consider obtaining a Cardiology evaluation at this point in time. I did review the chest x-ray as above. The chest x-ray this morning is improved - with partial clearing of the right lower lobe infiltrate. I have also reviewed the arterial blood gas. The arterial blood gas is also improved with a decrease in the alveolar-arterial gradient. I will continue with the patient on BiPAP for now. On physical exam, mild to moderate bronchospasm remains. I will continue the nebulizer treatments, but change to Xopenex (given the cardiac arrhythmias). I will also continue with the intravenous and inhaled steroids. The patient remains on antibiotic therapy - as per Infectious Disease. Input by Dr. Azul is noted. Temperatures are resolving. The leukocytosis is also much improved. Clinical status of the patient is improving - but remains very guarded overall. I will discuss the above with the entire ICU team in the next few moments. I will also discuss the above with the attending physician later this morning. Umair Kauffman MD MTDD
[2017-10-15] MEDS: Cefepime 1gm in NS 100ml 1 GM/100 ML BAG IVPB SCH ×2 (10:41→22:13)
[2017-10-15] MEDS ORDERED: Insulin Reg-LOW-Coverage SC SCH (11:30)
[2017-10-15] MEDS: Vancomycin 1gm in NS 250ml 1 GM/250 ML BAG IVPB SCH ×2 (14:42→14:44)
[2017-10-15] MEDS ORDERED: Digoxin 500 mcg/2ml (0.5 mg/2ml) Inj IVP ONE (15:04)
[2017-10-15 15:43] VITALS: PULSE 134
[2017-10-15] MEDS ORDERED: Insulin Reg-HIGH-Coverage SC SCH (22:00)
[2017-10-15] MEDS: Insulin Reg-HIGH-Coverage SC SCH (22:13)
--- NOTE | 2017-10-15 22:50 | CP.PCM.PN ---
Subjective - Date & Time of Evaluation Date of Evaluation: 10/15/17 Time of Evaluation: 20:30 - Subjective Subjective: Infectious Disease Follow Up: October 15, 2017 72 yo male presenting with SOB and respiratory distress at home. When entering through the ER, the patient was started on BiPAP and given Lasix. 15 minutes afterwards, the patient had worsening SOB and required intubation. Influenza testing was negative. Multiple electrolyte abnormalities especially hyponatremia and elevated creatinine. Patient is acidotic as well. Most of the information taken from the patient's chart. As the patient is intubated and ventilated now, unable to ask the patient any additional questions. The patient has no recent previous hospitalizations (last hospitalization in 2012). Procalcitonin up to 18.11. Extubated yesterday and appears to be doing well. Off BiPAP. WBC has dropped dramatically to 12.9. Most of his electrolyte abnormalities have improved. However, creatinine still remains high. Urine cultures showing gram negative elan identified as Proteus. Sensitive to Cefepime. Currently on Cefepime and Vancomycin. Creatinine slowly improving. Overall improving. Tachycardia improved. Patient is more awake and alert. Objective - Vital Signs/Intake and Output Vital Signs (last 24 hours): Temp Pulse Resp BP Pulse Ox 99.3 F 69 18 134/67 95 10/15/17 20:29 10/15/17 20:29 10/15/17 20:29 10/15/17 20:30 10/15/17 20:29 Intake and Output: 10/15/17 10/16/17 18:59 06:59 Intake Total 300 Output Total 500 Balance -200 - Medications Medications: Current Medications Albuterol Sulfate (Albuterol 0.083% Inhal Lydia (2.5 Mg/3 Ml) Ud) 2.5 mg IH Q2H PRN PRN Reason: Shortness of Breath Atenolol (Tenormin) 25 mg PO DAILY GLORIA Budesonide (Pulmicort Respules) 0.5 mg IH [id number] [facility] Last Admin: 10/15/17 19:50 Dose: 0.5 mg Cefepime HCl (Maxipime 1gm) 1 gm in 100 mls @ 100 mls/hr IVPB Q12 GLORIA PRN Reason: Protocol Last Admin: 10/15/17 22:13 Dose: 100 mls/hr Vancomycin HCl (Vancomycin 1gm) 1 gm in 250 mls @ 167 mls/hr IVPB DAILY GLORIA PRN Reason: Protocol Last Admin: 10/15/17 14:44 Dose: 167 mls/hr Azithromycin (Zithromax 500mg In Ns) 500 mg in 250 mls @ 167 mls/hr IVPB DAILY GLORIA PRN Reason: Protocol Last Admin: 10/15/17 10:47 Dose: Not Given Heparin Sodium/Sodium Chloride (Heparin 10996 Units/250ml 1/2 Normal Saline) 25 ,000 units in 250 mls @ 10.05 mls/hr IV .Q24H PRN; Protocol; 9.55 UNITS/KG/HR PRN Reason: ADJUST RATE PER PROTOCOL Last Admin: 10/14/17 16:00 Dose: 10 units/kg/hr, 10.523 mls/hr [id number] IVPB 100mg in NS (Cardizem 100mg In Ns) 100 mls @ 5 mls/hr IV .Q20H PRN; Protocol; 5 MG/HR PRN Reason: TITRATE PER MD ORDER Last Admin: 10/15/17 18:39 Dose: 10 mg/hr, 10 mls/hr Insulin Human Regular (Humulin R High) 0 units SC ACHS GLORIA PRN Reason: Protocol Last Admin: 10/15/17 22:13 Dose: 3 units Levalbuterol HCl (Xopenex) 1.25 mg IH [id number] [facility] Last Admin: 10/15/17 19:50 Dose: 1.25 mg Methylprednisolone (Solu-Medrol) 40 mg IVP Q8 [facility] Last Admin: 10/15/17 22:12 Dose: 40 mg Pantoprazole Sodium (Protonix Susp) 40 mg PO 0600 [facility] Last Admin: 10/15/17 05:18 Dose: 40 mg Verapamil HCl (Calan Tab) 40 mg PO TID [facility] Last Admin: 10/15/17 18:41 Dose: 40 mg Verapamil HCl (Verapamil Inj) 2.5 mg IVP Q4H PRN PRN Reason: For heart rate >130 - Labs Labs: 10/15/17 05:30 10/15/17 05:30 PT 17.1 SECONDS (9.4-12.5) H 10/11/17 14:50 INR 1.49 (0.93-1.08) H 10/11/17 14:50 APTT 68.8 Seconds (25.1-36.5) H 10/14/17 05:00 - Constitutional Appears: Non-toxic, No Acute Distress, Chronically Ill - Head Exam Head Exam: ATRAUMATIC, NORMOCEPHALIC - Eye Exam Eye Exam: EOMI, PERRL Pupil Exam: NORMAL ACCOMODATION, PERRL - ENT Exam ENT Exam: Mucous Membranes Moist, Normal External Ear Exam, TM's Normal Bilaterally - Neck Exam Neck Exam: Full ROM, Normal Inspection - Respiratory Exam Respiratory Exam: Wheezes, NORMAL BREATHING PATTERN. absent: Rales, Rhonchi - Cardiovascular Exam Cardiovascular Exam: REGULAR RHYTHM, RRR, +S1, +S2 - GI/Abdominal Exam GI & Abdominal Exam: Soft, Normal Bowel Sounds. absent: Distended, Tenderness - Extremities Exam Extremities Exam: Full ROM, Normal Inspection - Neurological Exam Neurological Exam: Alert, Awake, CN II-XII Intact, Oriented x3 Assessment and Plan - Assessment and Plan (Free Text) Assessment: 72 yo male with respiratory distress at home. Presented with SOB and required intubation and ventilation once in the [facility] ER. Patient with significant leukocytosis and borderline fevers here at [facility]. Procalcitonin sent. On Cefepime, Vancomycin IV, and Azithromycin. Started on Tamiflu. CT scan showing RML/RLL consolidation/infiltrates. Current antibiotic regimen is reasonable start point. Procalcitonin results of 18.11. Flynn cultures sent. Patient with lactic acidosis and electrolyte abnormalities. Hyponatremia. Acute renal failure with GFR less than 20 and creatinine of 4.1 on admission. Extubated yesterday. Improving. Pneumonia with RLL infiltrate on chest x-ray. Remains on Vancomycin IV, Azithromycin, and Cefepime for treatment. Most electrolyte abnormalities have normalized. Still elevated creatinine at 2.6. Urine cultures with gram negative rods identified as Proteus. On the whole improving rapidly. Back in NSR on Cardizem PO. Thank you for allowing me to participate in the care of the patient, we will follow with you.
[2017-10-16] MEDS: Levalbuterol 1.25 MG/3 ML Inhal Soln UD IH SCH ×4 (00:59→20:10)
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
[2017-10-16] MEDS: diltiaZEM IVPB 100mg in NS 100 ML IV PRN (04:55)
[2017-10-16 05:44] LABS: ARTERIAL BLOOD GAS HEMOGLOBIN 13.4 g/dL (11.7-17.4); ARTERIAL BLOOD GAS O2 CAPACITY 18.3 mL/dl (16-24); ARTERIAL BLOOD GAS O2 CONTENT 18.2 ML/dl (15-23); ARTERIAL BLOOD GAS O2 SAT 99.3 % (95-98); ARTERIAL BLOOD GAS PCO2 39 mm/Hg (35-45); ARTERIAL BLOOD GAS PH 7.48 (7.35-7.45); ARTERIAL BLOOD GAS TCO2 30.2 mmol.L (22-28)
--- NOTE | 2017-10-16 07:19 | CP.CCUPN ---
<Jenni Delcid - Last Filed: 10/16/17 11:05> CCU Subjective - Physician Review Subjective (Free Text): 10/16/17 07:02 Patient was stable overnight, on Cardizem drip and bipa. This AM, attempts was made to wean patient off of bipap, however HR increased to 130-150, improving now with verapamil. Otherwise patient denies cp, sob, nausea, vomiting or diarrhea. Critical Care Time Spent (in minutes): 50 CCU Objective - Vital Signs / Intake & Output Vital Signs (Last 4 hours): Vital Signs Temp Pulse Resp BP Pulse Ox 10/16/17 06:00 82 150/71 10/16/17 05:59 98.2 F 84 19 95 10/16/17 05:53 98.4 F 116 H 94 L 10/16/17 05:49 98.2 F 116 H 94 L 10/16/17 05:30 140/56 L 10/16/17 05:29 98.2 F 83 14 96 10/16/17 05:17 98.2 F 10/16/17 05:16 98.4 F 10/16/17 05:15 98.2 F 10/16/17 05:14 98.2 F 10/16/17 05:13 98.2 F 10/16/17 05:12 98.2 F 10/16/17 05:11 98.2 F 10/16/17 05:10 98.2 F 10/16/17 05:09 98.2 F 83 18 10/16/17 05:07 98.2 F 82 19 10/16/17 05:06 98.2 F 85 10/16/17 05:05 98.2 F 86 18 10/16/17 05:04 98.2 F 83 18 10/16/17 05:03 98.2 F 83 19 10/16/17 05:02 98.2 F 83 20 10/16/17 05:01 98.2 F 89 17 10/16/17 05:00 134/60 10/16/17 04:59 98.2 F 84 28 H 10/16/17 04:58 98.2 F 85 18 10/16/17 04:57 98.2 F 83 17 10/16/17 04:56 98.2 F 83 17 10/16/17 04:55 98.2 F 83 18 02/13/18 04:54 98.2 F 84 15 02/13/18 04:53 98.2 F 83 16 02/13/18 04:52 98.2 F 86 15 02/13/18 04:51 98.2 F 86 16 02/13/18 04:50 98.2 F 83 15 02/13/18 04:49 98.2 F 86 15 02/13/18 04:48 98.2 F 83 15 02/13/18 04:47 98.2 F 83 16 02/13/18 04:46 98.2 F 88 18 02/13/18 04:45 98.2 F 83 16 02/13/18 04:44 98.2 F 83 16 02/13/18 04:43 98.2 F 83 15 02/13/18 04:42 98.2 F 86 15 02/13/18 04:41 98.2 F 83 15 02/13/18 04:40 98.2 F 83 15 02/13/18 04:39 98.2 F 83 15 02/13/18 04:38 98.2 F 83 16 02/13/18 04:37 98.2 F 82 15 02/13/18 04:36 98.2 F 82 14 02/13/18 04:35 98.2 F 82 15 02/13/18 04:34 98.2 F 82 16 02/13/18 04:33 98.2 F 81 15 02/13/18 04:32 98.2 F 95 H 17 02/13/18 04:31 98.2 F 105 H 16 02/13/18 04:05 98.2 F 87 17 02/13/18 04:04 98.2 F 76 18 02/13/18 04:03 98.2 F 83 18 02/13/18 04:02 98.2 F 93 H 02/13/18 04:01 98.2 F 90 18 02/13/18 04:00 118/50 L 02/13/18 03:59 98.2 F 85 16 02/13/18 03:58 98.2 F 79 15 02/13/18 03:57 98.2 F 78 14 02/13/18 03:56 98.2 F 81 15 02/13/18 03:55 98.2 F 49 L 15 02/13/18 03:54 98.2 F 52 L 12 10/16/17 03:53 98.2 F 55 L 15 10/16/17 03:52 98.2 F 52 L 15 10/16/17 03:51 98.2 F 52 L 20 10/16/17 03:50 98.2 F 52 L 17 10/16/17 03:49 98.2 F 52 L 15 10/16/17 03:48 98.2 F 52 L 14 10/16/17 03:47 98.1 F 52 L 16 10/16/17 03:46 98.1 F 52 L 16 10/16/17 03:45 98.1 F 53 L 16 10/16/17 03:44 98.1 F 51 L 15 10/16/17 03:43 98.1 F 54 L 16 10/16/17 03:42 98.1 F 58 L 17 10/16/17 03:41 98.1 F 58 L 17 10/16/17 03:40 98.1 F 58 L 19 10/16/17 03:39 98.1 F 59 L 20 10/16/17 03:38 98.1 F 58 L 18 10/16/17 03:37 98.1 F 58 L 25 H 10/16/17 03:36 98.1 F 56 L 18 10/16/17 03:35 98.1 F 54 L 18 10/16/17 03:34 98.1 F 56 L 19 10/16/17 03:33 98.1 F 56 L 19 10/16/17 03:32 144/41 L 10/16/17 03:31 98.1 F 64 24 10/16/17 03:30 98.1 F 67 10/16/17 03:29 98.1 F 59 L 14 10/16/17 03:28 98.1 F 56 L 17 On bipap at fio2 of 50%. Intake and Output (Last 8hrs): Intake & Output 10/15/17 10/16/17 10/16/17 22:59 06:59 14:59 Intake Total 300 446 Output Total 500 1000 Balance -200 -554 Intake: IV 300 446 Right Forearm 346 Right Hand 300 Output: Urine 500 1000 Urethral ([place]) 500 1000 - Physical Exam Head: Positive for: Normocephalic, Abrasion (left forehead (when questioned about fall, patient nods head that he fell)) Pupils: Positive for: PERRL Extroacular Muscles: Positive for: EOMI Mouth: Positive for: Moist Mucous Membranes Neck: Positive for: Normal Range of Motion Respiratory/Chest: Positive for: Wheezes. Negative for: Good Air Exchange, Respiratory Distress, Accessory Muscle Use, Decreased Breath Sounds, Rales, Retracting, Rhonchi, Tachypneic, Tender to Palpation Cardiovascular: Positive for: Irregular Rhythm, Tachycardic. Negative for: Regular Rate and Rhythm Abdomen: Positive for: Normal Bowel Sounds, Other (oebse abdomen.). Negative for: Tenderness, Distention, Peritoneal Signs Genitourinary Male: Positive for: Other (incontinent of stool and urine) Lower Extremity: Positive for: Swelling, Other (chronic stasis skin changes). Negative for: Edema Neurological: Positive for: GCS=15, Speech Normal Skin: Positive for: Warm Psychiatric: Positive for: Alert, Oriented x 3 - Medications Active Medications: Active Medications Generic Name Dose Route Start Last Admin Trade Name Freq PRN Reason Stop Dose Admin Albuterol Sulfate 2.5 mg 10/11/17 17:34 Albuterol 0.083% Inhal Lydia (2.5 Mg/3 Ml) Ud IH Q2H PRN Shortness of Breath Atenolol 25 mg 10/16/17 10:00 Tenormin PO DAILY GLORIA Budesonide 0.5 mg 10/13/17 20:00 10/15/17 19:50 Pulmicort Respules IH 0.5 mg [id number] GLORIA Administration Cefepime HCl 1 gm in 100 mls @ 100 mls/hr 10/11/17 22:00 10/15/17 22:13 Maxipime 1gm IVPB 100 mls/hr Q12 GLORIA Administration Protocol Vancomycin HCl 1 gm in 250 mls @ 167 mls/hr 10/12/17 10:00 10/15/17 14:44 Vancomycin 1gm IVPB 167 mls/hr DAILY GLORIA Administration Protocol Azithromycin 500 mg in 250 mls @ 167 mls/hr 10/12/17 10:00 10/15/17 10:47 Zithromax 500mg In Ns IVPB Not Given DAILY GLORAI Protocol Heparin Sodium/Sodium Chloride 25,000 units in 250 mls @ 10.05 mls/hr 00:54 10/14/17 16:00 Heparin 61288 Units/250ml 1/2 Normal Saline IV 10 units/kg/hr .Q24H PRN 10.523 mls/hr ADJUST RATE PER PROTOCOL Administration Protocol 9.55 UNITS/KG/HR Insulin Human Regular 0 units 10/15/17 18:57 10/15/17 22:13 Humulin R High SC 3 units ACHS GLORIA Administration Protocol Levalbuterol HCl 1.25 mg 10/15/17 08:00 10/16/17 00:59 Xopenex IH 1.25 mg [id number] GLORIA Administration Methylprednisolone 40 mg 10/14/17 14:00 10/15/17 22:12 Solu-Medrol IVP 40 mg Q8 GLORIA Administration Pantoprazole Sodium 40 mg 10/15/17 06:00 10/15/17 05:18 Protonix Susp PO 40 mg 0600 GLORIA Administration Verapamil HCl 40 mg 10/15/17 18:00 10/15/17 18:41 Calan Tab PO 40 mg TID GLORIA Administration Verapamil HCl 2.5 mg 10/15/17 16:44 Verapamil Inj IVP Q4H PRN For heart rate >130 - Patient Studies Lab Studies: Microbiology Studies 10/11/17 20:41 Urine Culture - Final Urine,Clean Catch Proteus Mirabilis Lab Studies 10/16/17 10/15/17 10/15/17 Range/Units 05:18 21:39 15:59 WBC (4.5-11.0) 10^3/ul RBC (3.5-6.1) 10^6/uL Hgb (14.0-18.0) g/dL Hct (42.0-52.0) % MCV (80.0-105.0) fl MCH (25.0-35.0) pg MCHC (31.0-37.0) g/dl RDW (11.5-14.5) % Plt Count (120.0-450.0) 10^3/uL MPV (7.0-11.0) fl Gran % (50.0-68.0) % Lymph % (Auto) (22.0-35.0) % [place] % (Auto) (1.0-6.0) % Eos % (Auto) (1.5-5.0) % Baso % (Auto) (0.0-3.0) % Gran # (1.4-6.5) Lymph # (Auto) (1.2-3.4) [place] # (Auto) (0.1-0.6) Eos # (Auto) (0.0-0.7) Baso # (Auto) (0.0-2.0) K/mm3 Neutrophils % (Manual) (50.0-70.0) % Band Neutrophils % (0-2) % Lymphocytes % (Manual) (22.0-35.0) % Monocytes % (Manual) (1.0-6.0) % Platelet Evaluation (NORMAL) pCO2 39 (35-45) mm/Hg pO2 90.0 (80-100) mm/Hg HCO3 29.0 H (21-28) mmol/L ABG pH 7.48 H (7.35-7.45) ABG Total CO2 30.2 H (22-28) mmol.L ABG O2 Saturation 99.3 H (95-98) % ABG O2 Content 18.2 (15-23) ML/dl ABG Base Excess 5.2 H (-2.0-3.0) mmol/L ABG Hemoglobin 13.4 (11.7-17.4) g/dL ABG Carboxyhemoglobin 1.8 H (0.5-1.5) % POC ABG HHb (Measured) 0.7 (0-5) % ABG Methemoglobin 1.1 (0.0-3.0) % ABG O2 Capacity 18.3 (16-24) mL/dl Hgb O2 Saturation 96.4 (95.0-98.0) % FiO2 60.0 % Sodium (132-148) mmol/L Potassium (3.6-5.0) mmol/L Chloride (98-107) mmol/L Carbon Dioxide (21-33) mmol/L Anion Gap (10-20) BUN (7-21) mg/dL Creatinine (0.8-1.5) mg/dl Est GFR ( Amer) Est GFR (Non-Af Amer) POC Glucose (mg/dL) 379 H 361 H (65-110) mg/dL Random Glucose (70-110) mg/dL Calcium (8.4-10.5) mg/dL Total Bilirubin (0.2-1.3) mg/dL AST (17-59) U/L ALT (7-56) U/L Alkaline Phosphatase (38-126) U/L Total Protein (5.8-8.3) g/dL Albumin (3.0-4.8) g/dL Globulin gm/dL Albumin/Globulin Ratio (1.1-1.8) Ur Strep pneumoniae Ag 10/15/17 10/15/17 10/15/17 Range/Units 14:28 11:11 09:49 WBC (4.5-11.0) 10^3/ul RBC (3.5-6.1) 10^6/uL Hgb (14.0-18.0) g/dL Hct (42.0-52.0) % MCV (80.0-105.0) fl MCH (25.0-35.0) pg MCHC (31.0-37.0) g/dl RDW (11.5-14.5) % Plt Count (120.0-450.0) 10^3/uL MPV (7.0-11.0) fl Gran % (50.0-68.0) % Lymph % (Auto) (22.0-35.0) % [place] % (Auto) (1.0-6.0) % Eos % (Auto) (1.5-5.0) % Baso % (Auto) (0.0-3.0) % Gran # (1.4-6.5) Lymph # (Auto) (1.2-3.4) [place] # (Auto) (0.1-0.6) Eos # (Auto) (0.0-0.7) Baso # (Auto) (0.0-2.0) K/mm3 Neutrophils % (Manual) (50.0-70.0) % Band Neutrophils % (0-2) % Lymphocytes % (Manual) (22.0-35.0) % Monocytes % (Manual) (1.0-6.0) % Platelet Evaluation (NORMAL) pCO2 (35-45) mm/Hg pO2 (80-100) mm/Hg HCO3 (21-28) mmol/L ABG pH (7.35-7.45) ABG Total CO2 (22-28) mmol.L ABG O2 Saturation (95-98) % ABG O2 Content (15-23) ML/dl ABG Base Excess (-2.0-3.0) mmol/L ABG Hemoglobin (11.7-17.4) g/dL ABG Carboxyhemoglobin (0.5-1.5) % POC ABG HHb (Measured) (0-5) % ABG Methemoglobin (0.0-3.0) % ABG O2 Capacity (16-24) mL/dl Hgb O2 Saturation (95.0-98.0) % FiO2 % Sodium (132-148) mmol/L Potassium (3.6-5.0) mmol/L Chloride (98-107) mmol/L Carbon Dioxide (21-33) mmol/L Anion Gap (10-20) BUN (7-21) mg/dL Creatinine (0.8-1.5) mg/dl Est GFR ( Amer) Est GFR (Non-Af Amer) POC Glucose (mg/dL) 394 H 391 H 381 H (65-110) mg/dL Random Glucose (70-110) mg/dL Calcium (8.4-10.5) mg/dL Total Bilirubin (0.2-1.3) mg/dL AST (17-59) U/L ALT (7-56) U/L Alkaline Phosphatase (38-126) U/L Total Protein (5.8-8.3) g/dL Albumin (3.0-4.8) g/dL Globulin gm/dL Albumin/Globulin Ratio (1.1-1.8) Ur Strep pneumoniae Ag 10/15/17 10/15/17 10/15/17 Range/Units 08:51 07:57 05:30 WBC (4.5-11.0) 10^3/ul RBC (3.5-6.1) 10^6/uL Hgb (14.0-18.0) g/dL Hct (42.0-52.0) % MCV (80.0-105.0) fl MCH (25.0-35.0) pg MCHC (31.0-37.0) g/dl RDW (11.5-14.5) % Plt Count (120.0-450.0) 10^3/uL MPV (7.0-11.0) fl Gran % (50.0-68.0) % Lymph % (Auto) (22.0-35.0) % [place] % (Auto) (1.0-6.0) % Eos % (Auto) (1.5-5.0) % Baso % (Auto) (0.0-3.0) % Gran # (1.4-6.5) Lymph # (Auto) (1.2-3.4) [place] # (Auto) (0.1-0.6) Eos # (Auto) (0.0-0.7) Baso # (Auto) (0.0-2.0) K/mm3 Neutrophils % (Manual) (50.0-70.0) % Band Neutrophils % (0-2) % Lymphocytes % (Manual) (22.0-35.0) % Monocytes % (Manual) (1.0-6.0) % Platelet Evaluation (NORMAL) pCO2 (35-45) mm/Hg pO2 (80-100) mm/Hg HCO3 (21-28) mmol/L ABG pH (7.35-7.45) ABG Total CO2 (22-28) mmol.L ABG O2 Saturation (95-98) % ABG O2 Content (15-23) ML/dl ABG Base Excess (-2.0-3.0) mmol/L ABG Hemoglobin (11.7-17.4) g/dL ABG Carboxyhemoglobin (0.5-1.5) % POC ABG HHb (Measured) (0-5) % ABG Methemoglobin (0.0-3.0) % ABG O2 Capacity (16-24) mL/dl Hgb O2 Saturation (95.0-98.0) % FiO2 % Sodium 154 H (132-148) mmol/L Potassium 3.6 (3.6-5.0) mmol/L Chloride 108 H (98-107) mmol/L Carbon Dioxide 30 (21-33) mmol/L Anion Gap 20 (10-20) BUN 46 H (7-21) mg/dL Creatinine 2.6 H (0.8-1.5) mg/dl Est GFR ( Amer) 29 Est GFR (Non-Af Amer) 24 POC Glucose (mg/dL) 296 H 269 H (65-110) mg/dL Random Glucose 340 H* (70-110) mg/dL Calcium 8.6 (8.4-10.5) mg/dL Total Bilirubin 1.1 (0.2-1.3) mg/dL AST 51 (17-59) U/L ALT 40 (7-56) U/L Alkaline Phosphatase 128 H D (38-126) U/L Total Protein 7.1 (5.8-8.3) g/dL Albumin 3.2 (3.0-4.8) g/dL Globulin 4.0 gm/dL Albumin/Globulin Ratio 0.8 L (1.1-1.8) Ur Strep pneumoniae Ag 10/15/17 10/11/17 Range/Units 05:30 21:02 WBC 16.2 H (4.5-11.0) 10^3/ul RBC 3.92 (3.5-6.1) 10^6/uL Hgb 13.2 L (14.0-18.0) g/dL Hct 38.7 L (42.0-52.0) % MCV 98.7 (80.0-105.0) fl MCH 33.7 (25.0-35.0) pg MCHC 34.1 (31.0-37.0) g/dl RDW 14.7 H (11.5-14.5) % Plt Count 193 (120.0-450.0) 10^3/uL MPV 12.1 H (7.0-11.0) fl Gran % 87.6 H (50.0-68.0) % Lymph % (Auto) 3.3 L (22.0-35.0) % [place] % (Auto) 9.0 H (1.0-6.0) % Eos % (Auto) 0.0 L (1.5-5.0) % Baso % (Auto) 0.1 (0.0-3.0) % Gran # 14.15 H (1.4-6.5) Lymph # (Auto) 0.5 L (1.2-3.4) [place] # (Auto) 1.5 H (0.1-0.6) Eos # (Auto) 0.0 (0.0-0.7) Baso # (Auto) 0.02 (0.0-2.0) K/mm3 Neutrophils % (Manual) 88 H (50.0-70.0) % Band Neutrophils % 1 (0-2) % Lymphocytes % (Manual) 6 L (22.0-35.0) % Monocytes % (Manual) 5 (1.0-6.0) % Platelet Evaluation Normal (NORMAL) pCO2 (35-45) mm/Hg pO2 (80-100) mm/Hg HCO3 (21-28) mmol/L ABG pH (7.35-7.45) ABG Total CO2 (22-28) mmol.L ABG O2 Saturation (95-98) % ABG O2 Content (15-23) ML/dl ABG Base Excess (-2.0-3.0) mmol/L ABG Hemoglobin (11.7-17.4) g/dL ABG Carboxyhemoglobin (0.5-1.5) % POC ABG HHb (Measured) (0-5) % ABG Methemoglobin (0.0-3.0) % ABG O2 Capacity (16-24) mL/dl Hgb O2 Saturation (95.0-98.0) % FiO2 % Sodium (132-148) mmol/L Potassium (3.6-5.0) mmol/L Chloride (98-107) mmol/L Carbon Dioxide (21-33) mmol/L Anion Gap (10-20) BUN (7-21) mg/dL Creatinine (0.8-1.5) mg/dl Est GFR ( Amer) Est GFR (Non-Af Amer) POC Glucose (mg/dL) (65-110) mg/dL Random Glucose (70-110) mg/dL Calcium (8.4-10.5) mg/dL Total Bilirubin (0.2-1.3) mg/dL AST (17-59) U/L ALT (7-56) U/L Alkaline Phosphatase (38-126) U/L Total Protein (5.8-8.3) g/dL Albumin (3.0-4.8) g/dL Globulin gm/dL Albumin/Globulin Ratio (1.1-1.8) Ur Strep pneumoniae Ag Not detected Laboratory Results - last 24 hr 10/11/17 10/15/17 10/15/17 21:02 05:30 05:30 WBC 16.2 H RBC 3.92 Hgb 13.2 L Hct 38.7 L MCV 98.7 MCH 33.7 MCHC 34.1 RDW 14.7 H Plt Count 193 MPV 12.1 H Gran % 87.6 H Lymph % (Auto) 3.3 L [place] % (Auto) 9.0 H Eos % (Auto) 0.0 L Baso % (Auto) 0.1 Gran # 14.15 H Lymph # (Auto) 0.5 L [place] # (Auto) 1.5 H Eos # (Auto) 0.0 Baso # (Auto) 0.02 Neutrophils % (Manual) 88 H Band Neutrophils % 1 Lymphocytes % (Manual) 6 L Monocytes % (Manual) 5 Platelet Evaluation Normal pCO2 pO2 HCO3 ABG pH ABG Total CO2 ABG O2 Saturation ABG O2 Content ABG Base Excess ABG Hemoglobin ABG Carboxyhemoglobin POC ABG HHb (Measured) ABG Methemoglobin ABG O2 Capacity Hgb O2 Saturation FiO2 Sodium 154 H Potassium 3.6 Chloride 108 H Carbon Dioxide 30 Anion Gap 20 BUN 46 H Creatinine 2.6 H Est GFR ( Amer) 29 Est GFR (Non-Af Amer) 24 POC Glucose (mg/dL) Random Glucose 340 H* Calcium 8.6 Total Bilirubin 1.1 AST 51 ALT 40 Alkaline Phosphatase 128 H D Total Protein 7.1 Albumin 3.2 Globulin 4.0 Albumin/Globulin Ratio 0.8 L Ur Strep pneumoniae Ag Not detected 10/15/17 10/15/17 10/15/17 07:57 08:51 09:49 WBC RBC Hgb Hct MCV MCH MCHC RDW Plt Count MPV Gran % Lymph % (Auto) [place] % (Auto) Eos % (Auto) Baso % (Auto) Gran # Lymph # (Auto) [place] # (Auto) Eos # (Auto) Baso # (Auto) Neutrophils % (Manual) Band Neutrophils % Lymphocytes % (Manual) Monocytes % (Manual) Platelet Evaluation pCO2 pO2 HCO3 ABG pH ABG Total CO2 ABG O2 Saturation ABG O2 Content ABG Base Excess ABG Hemoglobin ABG Carboxyhemoglobin POC ABG HHb (Measured) ABG Methemoglobin ABG O2 Capacity Hgb O2 Saturation FiO2 Sodium Potassium Chloride Carbon Dioxide Anion Gap BUN Creatinine Est GFR ( Amer) Est GFR (Non-Af Amer) POC Glucose (mg/dL) 269 H 296 H 381 H Random Glucose Calcium Total Bilirubin AST ALT Alkaline Phosphatase Total Protein Albumin Globulin Albumin/Globulin Ratio Ur Strep pneumoniae Ag 10/15/17 10/15/17 10/15/17 11:11 14:28 15:59 WBC RBC Hgb Hct MCV MCH MCHC RDW Plt Count MPV Gran % Lymph % (Auto) [place] % (Auto) Eos % (Auto) Baso % (Auto) Gran # Lymph # (Auto) [place] # (Auto) Eos # (Auto) Baso # (Auto) Neutrophils % (Manual) Band Neutrophils % Lymphocytes % (Manual) Monocytes % (Manual) Platelet Evaluation pCO2 pO2 HCO3 ABG pH ABG Total CO2 ABG O2 Saturation ABG O2 Content ABG Base Excess ABG Hemoglobin ABG Carboxyhemoglobin POC ABG HHb (Measured) ABG Methemoglobin ABG O2 Capacity Hgb O2 Saturation FiO2 Sodium Potassium Chloride Carbon Dioxide Anion Gap BUN Creatinine Est GFR ( Amer) Est GFR (Non-Af Amer) POC Glucose (mg/dL) 391 H 394 H 361 H Random Glucose Calcium Total Bilirubin AST ALT Alkaline Phosphatase Total Protein Albumin Globulin Albumin/Globulin Ratio Ur Strep pneumoniae Ag 10/15/17 10/16/17 21:39 05:18 WBC RBC Hgb Hct MCV MCH MCHC RDW Plt Count MPV Gran % Lymph % (Auto) [place] % (Auto) Eos % (Auto) Baso % (Auto) Gran # Lymph # (Auto) [place] # (Auto) Eos # (Auto) Baso # (Auto) Neutrophils % (Manual) Band Neutrophils % Lymphocytes % (Manual) Monocytes % (Manual) Platelet Evaluation pCO2 39 pO2 90.0 HCO3 29.0 H ABG pH 7.48 H ABG Total CO2 30.2 H ABG O2 Saturation 99.3 H ABG O2 Content 18.2 ABG Base Excess 5.2 H ABG Hemoglobin 13.4 ABG Carboxyhemoglobin 1.8 H POC ABG HHb (Measured) 0.7 ABG Methemoglobin 1.1 ABG O2 Capacity 18.3 Hgb O2 Saturation 96.4 FiO2 60.0 Sodium Potassium Chloride Carbon Dioxide Anion Gap BUN Creatinine Est GFR ( Amer) Est GFR (Non-Af Amer) POC Glucose (mg/dL) 379 H Random Glucose Calcium Total Bilirubin AST ALT Alkaline Phosphatase Total Protein Albumin Globulin Albumin/Globulin Ratio Ur Strep pneumoniae Ag EKG/Cardiology Studies: Cardiology / EKG Studies 10/16/17 07:00 ELECTROCARDIOGRAM Routine Comment: Reason For Exam: PAF PRE OP:: N Does Patient Have a Pacemaker?: No PERFORMING PHYSICIAN/PROVIDER:: Josue Foster Fingerstick Blood Sugar Results: 379 Results Reviewed to Date: Yes Critical Care Progress Note - Extremities/Vascular Does the Patient have a [place] Catheter?: Yes Does the Patient need a [place] Catheter?: Yes Catheter Insertion Criteria: Need for accurate measurement of output in critically ill patient - Prophylaxis GI Prophylaxis GI: PPI - Prophylaxis DVT Prophylaxis DVT: Heparin SQ - Nutrition Nutrition: Nutrition Category Date Time Status Dysphagia/Modified Consistency Diet [DIET] Diets 10/13/17 Dinner Ordered Assessment/Plan - Assessment and Plan (Free Text) Assessment: Pat[place] is a 72 yo male admitted with respiratory failure likely due to PNA and COPD exacerbation s/p intubation and extubation. On BIPAP. Patient developed RVR afib, now controlled with verapamil. Has been experiencing hyperglycemia likely due to solumedrol. Plan: Neurology: stable at baseline Pulm- Hypoxemic respiratory failure likely secondary to pneumonia and copd- - Saturating well on bipap - Attemtp nasal cannula duding the day and bipap at night. - head of bed above 35 degrees - continue with bronchodilators prn and standing dose - On solu medrol tapering dose - Also on pulmocort - on abx for pneumonia Cardio: - Severe sepsis with transient hypotention, responded well to IVF - RVR afib- now controlled on verapamil 80 mg tid, and verapamil ivp prn. with atenolol po. - Cardiology following, considering switching heparin drip to eliquis. - Maintain MAP above 65%. Renal: FABRICIO on CKD- likely pre-renal versus intrinsic - creatinine stable Endo: Uncontrolled DM, - Start insulin drip - moderate carb diet, and taper solumedrol. Heme: h/h stable, will continue to monitor ID: Severe sepsis due to pneumonia and urosepsis - Leukocytosis trended down, and afebrile - Will continue with cefepime/vanco/zithromax. - no growth on blood culture, urine with proteus - ID following GI: on dysphasia diet. on ppi for gi prophylaxis. Tobacco abuse- on nicotine patch. DVT prophylaxis: on heparin drip for rvr afib. Patient seen, examined and case discussed with Dr Agee. - Date & Time Date: 10/16/17 Time: 10:45 <Rosas Agee - Last Filed: 10/16/17 11:42> CCU Objective - Vital Signs / Intake & Output Vital Signs (Last 4 hours): Vital Signs Temp Pulse Resp BP Pulse Ox 10/16/17 10:28 98.4 F 62 20 10/16/17 10:00 147/55 L 10/16/17 09:59 98.4 F 175 H 89 L 10/16/17 09:51 98.4 F 66 65 L 10/16/17 09:48 98.4 F 62 90 L 10/16/17 09:30 147/92 H 10/16/17 09:29 98.4 F 74 19 92 L 10/16/17 09:07 144 H 139/48 L 10/16/17 09:00 98.4 F 139 H 20 139/68 90 L 10/16/17 08:47 98.4 F 132 H 90 L 10/16/17 08:41 98.6 F 137 H 91 L 10/16/17 08:34 133 H 136/83 10/16/17 08:30 136/83 10/16/17 08:29 98.6 F 149 H 24 90 L 10/16/17 08:17 98.6 F 103 H 92 L 10/16/17 08:00 158/55 H 10/16/17 07:59 98.4 F 119 H 21 90 L Intake and Output (Last 8hrs): Intake & Output 10/15/17 10/16/17 10/16/17 22:59 06:59 14:59 Intake Total 300 446 Output Total 500 1000 Balance -200 -554 Intake: IV 300 446 Right Forearm 346 Right Hand 300 Output: Urine 500 1000 Urethral ([place]) 500 1000 - Medications Active Medications: Active Medications Generic Name Dose Route Start Last Admin Trade Name Freq PRN Reason Stop Dose Admin Albuterol Sulfate 2.5 mg 10/11/17 17:34 Albuterol 0.083% Inhal Lydia (2.5 Mg/3 Ml) Ud IH Q2H PRN Shortness of Breath Apixaban 2.5 mg 10/16/17 11:45 Eliquis PO BID GLORIA Protocol Atenolol 25 mg 10/16/17 10:00 10/16/17 10:35 Tenormin PO Not Given DAILY GLORIA Budesonide 0.5 mg 10/13/17 20:00 10/16/17 07:44 Pulmicort Respules IH 0.5 mg [id number] GLORIA Administration Digoxin 0.25 mg 10/16/17 11:36 Lanoxin IVP 10/16/17 11:37 ONCE ONE Cefepime HCl 1 gm in 100 mls @ 100 mls/hr 10/11/17 22:00 10/16/17 10:25 Maxipime 1gm IVPB 100 mls/hr Q12 GLORIA Administration Protocol Vancomycin HCl 1 gm in 250 mls @ 167 mls/hr 10/12/17 10:00 10/15/17 14:44 Vancomycin 1gm IVPB 167 mls/hr DAILY GLORIA Administration Protocol Azithromycin 500 mg in 250 mls @ 167 mls/hr 10/12/17 10:00 10/16/17 10:35 Zithromax 500mg In Ns IVPB Not Given DAILY GLORIA Protocol Sodium Chloride 1,000 mls @ 60 mls/hr 10/16/17 09:00 10/16/17 09:20 Sodium Chloride 0.45% IV 60 mls/hr .[id number] GLORIA Administration Insulin Human Regular 100 100 mls @ 9 mls/hr 10/16/17 11:04 units/ Sodium Chloride IV .[id number] PRN TITRATE PER MD ORDER Protocol 9 UNITS/HR Levalbuterol HCl 1.25 mg 10/15/17 08:00 10/16/17 07:44 Xopenex IH 1.25 mg [id number] GLORIA Administration Methylprednisolone 20 mg 10/16/17 10:00 10/16/17 09:16 Solu-Medrol IVP 20 mg Q12 GLORIA Administration Pantoprazole Sodium 40 mg 10/15/17 06:00 10/16/17 09:16 Protonix Susp PO 40 mg 0600 GLORIA Administration Verapamil HCl 2.5 mg 10/15/17 16:44 10/16/17 09:07 Verapamil Inj IVP 2.5 mg Q4H PRN Administration For heart rate >130 Verapamil HCl 80 mg 10/16/17 09:37 10/16/17 11:02 Calan Tab PO Not Given TID GLORIA - Patient Studies Lab Studies: Microbiology Studies 10/11/17 20:41 Urine Culture - Final Urine,Clean Catch Proteus Mirabilis Lab Studies 10/16/17 10/16/17 10/16/17 Range/Units 10:57 07:40 07:40 WBC (4.5-11.0) 10^3/ul RBC (3.5-6.1) 10^6/uL Hgb (14.0-18.0) g/dL Hct (42.0-52.0) % MCV (80.0-105.0) fl MCH (25.0-35.0) pg MCHC (31.0-37.0) g/dl RDW (11.5-14.5) % Plt Count (120.0-450.0) 10^3/uL MPV (7.0-11.0) fl Gran % (50.0-68.0) % Lymph % (Auto) (22.0-35.0) % [place] % (Auto) (1.0-6.0) % Eos % (Auto) (1.5-5.0) % Baso % (Auto) (0.0-3.0) % Gran # (1.4-6.5) Lymph # (Auto) (1.2-3.4) [place] # (Auto) (0.1-0.6) Eos # (Auto) (0.0-0.7) Baso # (Auto) (0.0-2.0) K/mm3 APTT 66.1 H (25.1-36.5) Seconds pCO2 (35-45) mm/Hg pO2 (80-100) mm/Hg HCO3 (21-28) mmol/L ABG pH (7.35-7.45) ABG Total CO2 (22-28) mmol.L ABG O2 Saturation (95-98) % ABG O2 Content (15-23) ML/dl ABG Base Excess (-2.0-3.0) mmol/L ABG Hemoglobin (11.7-17.4) g/dL ABG Carboxyhemoglobin (0.5-1.5) % POC ABG HHb (Measured) (0-5) % ABG Methemoglobin (0.0-3.0) % ABG O2 Capacity (16-24) mL/dl Hgb O2 Saturation (95.0-98.0) % FiO2 % Sodium (132-148) mmol/L Potassium (3.6-5.0) mmol/L Chloride (98-107) mmol/L Carbon Dioxide (21-33) mmol/L Anion Gap (10-20) BUN (7-21) mg/dL Creatinine (0.8-1.5) mg/dl Est GFR ( Amer) Est GFR (Non-Af Amer) POC Glucose (mg/dL) > 500 H* 335 H (65-110) mg/dL Random Glucose (70-110) mg/dL Calcium (8.4-10.5) mg/dL Phosphorus (2.5-4.5) mg/dL Magnesium (1.7-2.2) mg/dL Total Bilirubin (0.2-1.3) mg/dL AST (17-59) U/L ALT (7-56) U/L Alkaline Phosphatase (38-126) U/L Total Protein (5.8-8.3) g/dL Albumin (3.0-4.8) g/dL Globulin gm/dL Albumin/Globulin Ratio (1.1-1.8) Triglycerides (35-160) mg/dL Cholesterol (130-200) mg/dL LDL Cholesterol Direct (0-129) mg/dL HDL Cholesterol (29-60) mg/dL TSH 3rd Generation (0.46-4.68) mIU/mL Ur Strep pneumoniae Ag 10/16/17 10/16/17 10/16/17 Range/Units 07:40 07:40 07:40 WBC 13.8 H (4.5-11.0) 10^3/ul RBC 3.94 (3.5-6.1) 10^6/uL Hgb 13.3 L (14.0-18.0) g/dL Hct 39.9 L (42.0-52.0) % MCV 101.3 (80.0-105.0) fl MCH 33.8 (25.0-35.0) pg MCHC 33.3 (31.0-37.0) g/dl RDW 14.8 H (11.5-14.5) % Plt Count 173 (120.0-450.0) 10^3/uL MPV 12.0 H (7.0-11.0) fl Gran % 90.7 H (50.0-68.0) % Lymph % (Auto) 4.6 L (22.0-35.0) % [place] % (Auto) 4.6 (1.0-6.0) % Eos % (Auto) 0.0 L (1.5-5.0) % Baso % (Auto) 0.1 (0.0-3.0) % Gran # 12.54 H (1.4-6.5) Lymph # (Auto) 0.6 L (1.2-3.4) [place] # (Auto) 0.6 (0.1-0.6) Eos # (Auto) 0.0 (0.0-0.7) Baso # (Auto) 0.02 (0.0-2.0) K/mm3 APTT (25.1-36.5) Seconds pCO2 (35-45) mm/Hg pO2 (80-100) mm/Hg HCO3 (21-28) mmol/L ABG pH (7.35-7.45) ABG Total CO2 (22-28) mmol.L ABG O2 Saturation (95-98) % ABG O2 Content (15-23) ML/dl ABG Base Excess (-2.0-3.0) mmol/L ABG Hemoglobin (11.7-17.4) g/dL ABG Carboxyhemoglobin (0.5-1.5) % POC ABG HHb (Measured) (0-5) % ABG Methemoglobin (0.0-3.0) % ABG O2 Capacity (16-24) mL/dl Hgb O2 Saturation (95.0-98.0) % FiO2 % Sodium 157 H* (132-148) mmol/L Potassium 3.9 (3.6-5.0) mmol/L Chloride 113 H (98-107) mmol/L Carbon Dioxide 30 (21-33) mmol/L Anion Gap 17 (10-20) BUN 61 H (7-21) mg/dL Creatinine 2.6 H (0.8-1.5) mg/dl Est GFR ( Amer) 29 Est GFR (Non-Af Amer) 24 POC Glucose (mg/dL) (65-110) mg/dL Random Glucose 455 H* D (70-110) mg/dL Calcium 8.6 (8.4-10.5) mg/dL Phosphorus 3.0 (2.5-4.5) mg/dL Magnesium 2.1 (1.7-2.2) mg/dL Total Bilirubin 0.9 (0.2-1.3) mg/dL AST 62 H D (17-59) U/L ALT 32 (7-56) U/L Alkaline Phosphatase 101 (38-126) U/L Total Protein 7.1 (5.8-8.3) g/dL Albumin 3.0 (3.0-4.8) g/dL Globulin 4.1 gm/dL Albumin/Globulin Ratio 0.7 L (1.1-1.8) Triglycerides 252 H (35-160) mg/dL Cholesterol 124 L (130-200) mg/dL LDL Cholesterol Direct 85 (0-129) mg/dL HDL Cholesterol 15 L (29-60) mg/dL TSH 3rd Generation 0.28 L (0.46-4.68) mIU/mL Ur Strep pneumoniae Ag 10/16/17 10/15/17 10/15/17 Range/Units 05:18 21:39 15:59 WBC (4.5-11.0) 10^3/ul RBC (3.5-6.1) 10^6/uL Hgb (14.0-18.0) g/dL Hct (42.0-52.0) % MCV (80.0-105.0) fl MCH (25.0-35.0) pg MCHC (31.0-37.0) g/dl RDW (11.5-14.5) % Plt Count (120.0-450.0) 10^3/uL MPV (7.0-11.0) fl Gran % (50.0-68.0) % Lymph % (Auto) (22.0-35.0) % Baca % (Auto) (1.0-6.0) % Eos % (Auto) (1.5-5.0) % Baso % (Auto) (0.0-3.0) % Gran # (1.4-6.5) Lymph # (Auto) (1.2-3.4) Baca # (Auto) (0.1-0.6) Eos # (Auto) (0.0-0.7) Baso # (Auto) (0.0-2.0) K/mm3 APTT (25.1-36.5) Seconds pCO2 39 (35-45) mm/Hg pO2 90.0 (80-100) mm/Hg HCO3 29.0 H (21-28) mmol/L ABG pH 7.48 H (7.35-7.45) ABG Total CO2 30.2 H (22-28) mmol.L ABG O2 Saturation 99.3 H (95-98) % ABG O2 Content 18.2 (15-23) ML/dl ABG Base Excess 5.2 H (-2.0-3.0) mmol/L ABG Hemoglobin 13.4 (11.7-17.4) g/dL ABG Carboxyhemoglobin 1.8 H (0.5-1.5) % POC ABG HHb (Measured) 0.7 (0-5) % ABG Methemoglobin 1.1 (0.0-3.0) % ABG O2 Capacity 18.3 (16-24) mL/dl Hgb O2 Saturation 96.4 (95.0-98.0) % FiO2 60.0 % Sodium (132-148) mmol/L Potassium (3.6-5.0) mmol/L Chloride (98-107) mmol/L Carbon Dioxide (21-33) mmol/L Anion Gap (10-20) BUN (7-21) mg/dL Creatinine (0.8-1.5) mg/dl Est GFR ( Amer) Est GFR (Non-Af Amer) POC Glucose (mg/dL) 379 H 361 H (65-110) mg/dL Random Glucose (70-110) mg/dL Calcium (8.4-10.5) mg/dL Phosphorus (2.5-4.5) mg/dL Magnesium (1.7-2.2) mg/dL Total Bilirubin (0.2-1.3) mg/dL AST (17-59) U/L ALT (7-56) U/L Alkaline Phosphatase (38-126) U/L Total Protein (5.8-8.3) g/dL Albumin (3.0-4.8) g/dL Globulin gm/dL Albumin/Globulin Ratio (1.1-1.8) Triglycerides (35-160) mg/dL Cholesterol (130-200) mg/dL LDL Cholesterol Direct (0-129) mg/dL HDL Cholesterol (29-60) mg/dL TSH 3rd Generation (0.46-4.68) mIU/mL Ur Strep pneumoniae Ag 10/15/17 10/11/17 Range/Units 14:28 21:02 WBC (4.5-11.0) 10^3/ul RBC (3.5-6.1) 10^6/uL Hgb (14.0-18.0) g/dL Hct (42.0-52.0) % MCV (80.0-105.0) fl MCH (25.0-35.0) pg MCHC (31.0-37.0) g/dl RDW (11.5-14.5) % Plt Count (120.0-450.0) 10^3/uL MPV (7.0-11.0) fl Gran % (50.0-68.0) % Lymph % (Auto) (22.0-35.0) % Baca % (Auto) (1.0-6.0) % Eos % (Auto) (1.5-5.0) % Baso % (Auto) (0.0-3.0) % Gran # (1.4-6.5) Lymph # (Auto) (1.2-3.4) Baca # (Auto) (0.1-0.6) Eos # (Auto) (0.0-0.7) Baso # (Auto) (0.0-2.0) K/mm3 APTT (25.1-36.5) Seconds pCO2 (35-45) mm/Hg pO2 (80-100) mm/Hg HCO3 (21-28) mmol/L ABG pH (7.35-7.45) ABG Total CO2 (22-28) mmol.L ABG O2 Saturation (95-98) % ABG O2 Content (15-23) ML/dl ABG Base Excess (-2.0-3.0) mmol/L ABG Hemoglobin (11.7-17.4) g/dL ABG Carboxyhemoglobin (0.5-1.5) % POC ABG HHb (Measured) (0-5) % ABG Methemoglobin (0.0-3.0) % ABG O2 Capacity (16-24) mL/dl Hgb O2 Saturation (95.0-98.0) % FiO2 % Sodium (132-148) mmol/L Potassium (3.6-5.0) mmol/L Chloride (98-107) mmol/L Carbon Dioxide (21-33) mmol/L Anion Gap (10-20) BUN (7-21) mg/dL Creatinine (0.8-1.5) mg/dl Est GFR ( Amer) Est GFR (Non-Af Amer) POC Glucose (mg/dL) 394 H (65-110) mg/dL Random Glucose (70-110) mg/dL Calcium (8.4-10.5) mg/dL Phosphorus (2.5-4.5) mg/dL Magnesium (1.7-2.2) mg/dL Total Bilirubin (0.2-1.3) mg/dL AST (17-59) U/L ALT (7-56) U/L Alkaline Phosphatase (38-126) U/L Total Protein (5.8-8.3) g/dL Albumin (3.0-4.8) g/dL Globulin gm/dL Albumin/Globulin Ratio (1.1-1.8) Triglycerides (35-160) mg/dL Cholesterol (130-200) mg/dL LDL Cholesterol Direct (0-129) mg/dL HDL Cholesterol (29-60) mg/dL TSH 3rd Generation (0.46-4.68) mIU/mL Ur Strep pneumoniae Ag Not detected Laboratory Results - last 24 hr 10/11/17 10/15/17 10/15/17 21:02 14:28 15:59 WBC RBC Hgb Hct MCV MCH MCHC RDW Plt Count MPV Gran % Lymph % (Auto) Baca % (Auto) Eos % (Auto) Baso % (Auto) Gran # Lymph # (Auto) Baca # (Auto) Eos # (Auto) Baso # (Auto) APTT pCO2 pO2 HCO3 ABG pH ABG Total CO2 ABG O2 Saturation ABG O2 Content ABG Base Excess ABG Hemoglobin ABG Carboxyhemoglobin POC ABG HHb (Measured) ABG Methemoglobin ABG O2 Capacity Hgb O2 Saturation FiO2 Sodium Potassium Chloride Carbon Dioxide Anion Gap BUN Creatinine Est GFR ( Amer) Est GFR (Non-Af Amer) POC Glucose (mg/dL) 394 H 361 H Random Glucose Calcium Phosphorus Magnesium Total Bilirubin AST ALT Alkaline Phosphatase Total Protein Albumin Globulin Albumin/Globulin Ratio Triglycerides Cholesterol LDL Cholesterol Direct HDL Cholesterol TSH 3rd Generation Ur Strep pneumoniae Ag Not detected 10/15/17 10/16/17 10/16/17 21:39 05:18 07:40 WBC 13.8 H RBC 3.94 Hgb 13.3 L Hct 39.9 L MCV 101.3 MCH 33.8 MCHC 33.3 RDW 14.8 H Plt Count 173 MPV 12.0 H Gran % 90.7 H Lymph % (Auto) 4.6 L Baca % (Auto) 4.6 Eos % (Auto) 0.0 L Baso % (Auto) 0.1 Gran # 12.54 H Lymph # (Auto) 0.6 L [place] # (Auto) 0.6 Eos # (Auto) 0.0 Baso # (Auto) 0.02 APTT pCO2 39 pO2 90.0 HCO3 29.0 H ABG pH 7.48 H ABG Total CO2 30.2 H ABG O2 Saturation 99.3 H ABG O2 Content 18.2 ABG Base Excess 5.2 H ABG Hemoglobin 13.4 ABG Carboxyhemoglobin 1.8 H POC ABG HHb (Measured) 0.7 ABG Methemoglobin 1.1 ABG O2 Capacity 18.3 Hgb O2 Saturation 96.4 FiO2 60.0 Sodium Potassium Chloride Carbon Dioxide Anion Gap BUN Creatinine Est GFR ( Amer) Est GFR (Non-Af Amer) POC Glucose (mg/dL) 379 H Random Glucose Calcium Phosphorus Magnesium Total Bilirubin AST ALT Alkaline Phosphatase Total Protein Albumin Globulin Albumin/Globulin Ratio Triglycerides Cholesterol LDL Cholesterol Direct HDL Cholesterol TSH 3rd Generation Ur Strep pneumoniae Ag 10/16/17 10/16/17 10/16/17 07:40 07:40 07:40 WBC RBC Hgb Hct MCV MCH MCHC RDW Plt Count MPV Gran % Lymph % (Auto) Baca % (Auto) Eos % (Auto) Baso % (Auto) Gran # Lymph # (Auto) B[place] # (Auto) Eos # (Auto) Baso # (Auto) APTT 66.1 H pCO2 pO2 HCO3 ABG pH ABG Total CO2 ABG O2 Saturation ABG O2 Content ABG Base Excess ABG Hemoglobin ABG Carboxyhemoglobin POC ABG HHb (Measured) ABG Methemoglobin ABG O2 Capacity Hgb O2 Saturation FiO2 Sodium 157 H* Potassium 3.9 Chloride 113 H Carbon Dioxide 30 Anion Gap 17 BUN 61 H Creatinine 2.6 H Est GFR ( Amer) 29 Est GFR (Non-Af Amer) 24 POC Glucose (mg/dL) Random Glucose 455 H* D Calcium 8.6 Phosphorus 3.0 Magnesium 2.1 Total Bilirubin 0.9 AST 62 H D ALT 32 Alkaline Phosphatase 101 Total Protein 7.1 Albumin 3.0 Globulin 4.1 Albumin/Globulin Ratio 0.7 L Triglycerides 252 H Cholesterol 124 L LDL Cholesterol Direct 85 HDL Cholesterol 15 L TSH 3rd Generation 0.28 L Ur Strep pneumoniae Ag 10/16/17 10/16/17 07:40 10:57 WBC RBC Hgb Hct MCV MCH MCHC RDW Plt Count MPV Gran % Lymph % (Auto) Baca % (Auto) Eos % (Auto) Baso % (Auto) Gran # Lymph # (Auto) Baca # (Auto) Eos # (Auto) Baso # (Auto) APTT pCO2 pO2 HCO3 ABG pH ABG Total CO2 ABG O2 Saturation ABG O2 Content ABG Base Excess ABG Hemoglobin ABG Carboxyhemoglobin POC ABG HHb (Measured) ABG Methemoglobin ABG O2 Capacity Hgb O2 Saturation FiO2 Sodium Potassium Chloride Carbon Dioxide Anion Gap BUN Creatinine Est GFR ( Amer) Est GFR (Non-Af Amer) POC Glucose (mg/dL) 335 H > 500 H* Random Glucose Calcium Phosphorus Magnesium Total Bilirubin AST ALT Alkaline Phosphatase Total Protein Albumin Globulin Albumin/Globulin Ratio Triglycerides Cholesterol LDL Cholesterol Direct HDL Cholesterol TSH 3rd Generation Ur Strep pneumoniae Ag EKG/Cardiology Studies: Cardiology / EKG Studies 10/16/17 07:00 ELECTROCARDIOGRAM Routine Comment: Reason For Exam: PAF PRE OP:: N Does Patient Have a Pacemaker?: No PERFORMING PHYSICIAN/PROVIDER:: Josue Foster Critical Care Progress Note - Nutrition Nutrition: Nutrition Category Date Time Status Dysphagia/Modified Consistency Diet [DIET] Diets 10/13/17 Dinner Ordered Assessment/Plan - Assessment and Plan (Free Text) Plan: Pt seen and examined on rounds with resident, agree with note with following additions/exceptions: 72yo male a/w resp failure, PNA. Currently extubated, doing well, off BIPAP, on 4LNC, sat 92% Now in NSR, HR 60s, on Verapamil PO PNA Respiratory failure, resolved Renal Failure Severe Sepsis COPD Afib Recommend: - cont with supp o2 as needed, BIPAP at night - Duonebs PRN - Pulmicort BID - taper to Solumedrol 20mg IV q12hr - DC Lasix - Start 1/2 NS for hypernatremia - insulin drip for uncontrolled hyperglycemia - cont with broad spectrum antibiotics as per ID - BP control - cont with Verapamil as per cardiology, A/C switch to Eliquis, DC heparin - cardiology follow up - renal follow up - GI ppx - DVT ppx, Eliquis - Monitor in MICU
[2017-10-16] MEDS: Budesonide 0.5 mg/2 ml Inhal Susp UD IH SCH ×2 (07:44→20:10)
[2017-10-16 08:06] LABS: BASO # 0.02 K/mm3 (0.0-2.0); BASO % 0.1 % (0.0-3.0); GRAN # 12.54 (1.4-6.5); GRAN % 90.7 % (50.0-68.0); HEMOGLOBIN 13.3 g/dL (14.0-18.0); LYMPH # 0.6 (1.2-3.4); LYMPH % 4.6 % (22.0-35.0); MEAN CELL VOLUME 101.3 fl (80.0-105.0); MEAN CORPUSCULAR HEMOGLOBIN 33.8 pg (25.0-35.0); MEAN CORPUSCULAR HGB CONC 33.3 g/dl (31.0-37.0); MONO # 0.6 (0.1-0.6); MONO % 4.6 % (1.0-6.0); RBC 3.94 10^6/uL (3.5-6.1); RED CELL DISTRIBUTION WIDTH 14.8 % (11.5-14.5); WHITE BLOOD COUNT 13.8 10^3/ul (4.5-11.0)
--- NOTE | 2017-10-16 08:30 | RAD ---
HISTORY: intubated COMPARISON: 10/15/2017 FINDINGS: LUNGS: Extensive right basilar infiltrate, essentially unchanged. PLEURA: No significant pleural effusion identified, no pneumothorax apparent. CARDIOVASCULAR: Normal. OSSEOUS STRUCTURES: No significant abnormalities. VISUALIZED UPPER ABDOMEN: Normal. OTHER FINDINGS: None. IMPRESSION: Right basilar infiltrate, possible pneumonia.
[2017-10-16] MEDS ORDERED: MethylPREDNISolone 40 mg Vial ONE (08:31)
[2017-10-16] MEDS: Azithromycin 500MG/NS 250ml 500 MG/250 ML BAG IVPB SCH ×2 (08:35→10:35)
[2017-10-16] MEDS: Insulin Reg-HIGH-Coverage SC SCH (08:35)
[2017-10-16 08:49] LABS: CALCIUM 8.6 mg/dL (8.4-10.5); MAGNESIUM 2.1 mg/dL (1.7-2.2)
[2017-10-16 08:50] LABS: ALB/GLOB RATIO 0.7 (1.1-1.8)
[2017-10-16] MEDS ORDERED: Insulin Regular 100 UNITS in Sodium Chloride 0.9% 99 ML IV PRN (08:50)
[2017-10-16] MEDS ORDERED: Sodium Chloride 0.45% 1,000 ML IV SCH (09:00)
[2017-10-16] MEDS: Pantoprazole 40 mg Susp UD PO SCH (09:16)
[2017-10-16] MEDS: MethylPREDNISolone 40 mg Vial IVP SCH ×2 (09:16→21:33)
[2017-10-16] MEDS ORDERED: MethylPREDNISolone 40 mg Vial IVP SCH (10:00)
[2017-10-16] MEDS: Cefepime 1gm in NS 100ml 1 GM/100 ML BAG IVPB SCH ×2 (10:25→21:32)
--- NOTE | 2017-10-16 10:33 | CARD ---
APPROVED REPORT EKG Measurement Heart [id number] <Conclusion> Milad Gonzalez PVC Inferior infarct, age undetermined NSSTW changes Prolonged QTc C/W ECG 10/12/17: AF and ST changes are new
--- NOTE | 2017-10-16 10:34 | PN ---
DATE: 10/16/2017(730am-820am) PULMONARY NOTE SUBJECTIVE: Patient appears comfortable this morning. He is not short of breath at rest. He remains very weak appearing. PHYSICAL EXAMINATION: VITAL SIGNS: Temperature is 98.2, pulse 82, respirations 19, blood pressure 150/71. Oxygen saturation on BiPAP is 95%. HEENT: Normocephalic, atraumatic. No JVD. CARDIOVASCULAR: Systolic ejection murmur at the lower left sternal border. No S3 gallop. LUNGS: Decreased breath sounds at the bases with crackles. Less rhonchi. Less wheezing. EXTREMITIES: Positive for edema. No cyanosis, no clubbing. Calves are nontender to palpation. GASTROINTESTINAL: Abdomen is soft, nontender and nondistended. Bowel sounds are positive. SKIN: No acute rash. NEUROLOGIC: Exam limited at the present time. PERTINENT LABORATORY DATA: Chest x-ray was done this morning and reviewed. There remains a right lower lobe patchy infiltrate. Arterial blood gas was done on BiPAP with 60% oxygen. Results are: PH 7.48, pCO2 of 39, pO2 of 90. IMPRESSION: 1. Status post respiratory failure. 2. Right lower lobe pneumonia. 3. Chronic obstructive pulmonary disease. 4. Acute bronchospasm. 5. Cardiac arrhythmias. PLAN: Patient appears more comfortable this morning. He is not short of breath at rest. He does remain very weak appearing. I did discuss the case with the night nurse at length. The night nurse informed me that the patient still has runs of atrial fibrillation. I would continue with the Cardiology evaluation and treatment as per Dr. Foster. His input is noted. I did review the chest x-ray as above. There remains a patchy right lower lobe infiltrate. In addition, I have also reviewed the arterial blood gas. The arterial blood gas remains with a significant alveolar-arterial gradient. I would continue with the antibiotic coverage as per Infectious Disease. Temperatures have now fully resolved. The leukocytosis is resolving. Clinically, the patient has improved. However, he remains very guarded overall. I would like to get the patient out of bed if possible. I will discuss the above with the entire ICU team in the next few moments. I will also discuss the above with the attending physician later this morning. Umair Kauffman MD [facility] # [id number] JOYCE
[2017-10-16] MEDS ORDERED: Digoxin 500 mcg/2ml (0.5 mg/2ml) Inj IVP ONE (11:36)
[2017-10-16] MEDS: Insulin Regular 100 UNITS in Sodium Chloride 0.9% 99 ML IV PRN ×4 (12:01→19:38)
[2017-10-16] MEDS: Vancomycin 1gm in NS 250ml 1 GM/250 ML BAG IVPB SCH (12:41)
--- NOTE | 2017-10-16 17:44 | PN ---
DATE: 10/16/2017 REASON FOR CONSULTATION AND FOLLOWUP: AFib with rapid ventricular rate associated with respiratory failure, status post extubated. SUBJECTIVE: The patient denies any chest pain, shortness of breath, or any palpitations. The patient is converted to normal sinus this morning, earlier having patient develop AFib with rapid ventricular rate, 2.5 of verapamil was given. The patient converted to normal sinus. PHYSICAL EXAMINATION: VITAL SIGNS: Temperature afebrile, heart rate 62, and blood pressure 144/55. HEENT: PERRLA. Extraocular muscles intact. NECK: Supple. No carotid bruits or thyromegaly. CHEST: Clear to auscultation. HEART: S1 and S2, regular. ABDOMEN: Soft. EXTREMITIES: Clubbing and cyanosis negative. LABORATORY DATA: Blood workup as follows: WBC 13.8, hemoglobin 13.3, hematocrit 39.9, and platelet count 173. Chemistry shows sodium 157, potassium 3.9, chloride 113, carbon dioxide 30, anion gap of 17, BUN 61, creatinine 2.6. 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 The patient's recent echo shows ejection fraction 55% with calculated right ventricular systolic pressure 23 mmHg, no mitral regurgitation, no tricuspid regurgitation. RECOMMENDATION: Increase verapamil to 80 mg p.o. three times a day , discontinue IV heparin, change to Eliquis 2.5 mg b.i.d. because patient has creatinine clearance 20 mL an hour and age of patient is 72, though body mass index is 30-40. We will discontinue heparin and depending upon the rate, if needs, we can increase Tenormin to 25 b.i.d., possible increase of verapamil and then see the rate. We will repeat the EKG in the morning. Thank you, Dr. Ramon, for proving us the opportunity in taking care of the patient, Nii Scott. Josue Foster MD [facility] # [id number]
--- NOTE | 2017-10-16 22:57 | CP.PCM.PN ---
Subjective - Date & Time of Evaluation Date of Evaluation: 10/16/17 Time of Evaluation: 20:45 - Subjective Subjective: Infectious Disease Follow Up: October 16, 2017 72 yo male presenting with SOB and respiratory distress at home. When entering through the ER, the patient was started on BiPAP and given Lasix. 15 minutes afterwards, the patient had worsening SOB and required intubation. Influenza testing was negative. Multiple electrolyte abnormalities especially hyponatremia and elevated creatinine. Patient is acidotic as well. Most of the information taken from the patient's chart. As the patient is intubated and ventilated now, unable to ask the patient any additional questions. The patient has no recent previous hospitalizations (last hospitalization in 2012). Procalcitonin up to 18.11. Extubated yesterday and appears to be doing well. Off BiPAP. WBC has dropped dramatically to 12.9. Most of his electrolyte abnormalities have improved. However, creatinine still remains high. Urine cultures showing gram negative elan identified as Proteus. Sensitive to Cefepime. Currently on Cefepime and Vancomycin. Creatinine slowly improving. Overall improving. Tachycardia improved. Patient is more awake and alert. Difficulty weaning from BiPAP. Verapamil added given difficulty in controlling heart rate. On the whole, the patient is improved compared to admission. Objective - Vital Signs/Intake and Output Vital Signs (last 24 hours): Temp Pulse Resp BP Pulse Ox 97.2 F L 62 23 150/60 93 L 10/16/17 20:30 10/16/17 20:30 10/16/17 20:30 10/16/17 20:30 10/16/17 20:30 Intake and Output: 10/16/17 10/17/17 18:59 06:59 Intake Total 1250 150 Output Total 900 Balance 350 150 - Medications Medications: Current Medications Albuterol Sulfate (Albuterol 0.083% Inhal Lydia (2.5 Mg/3 Ml) Ud) 2.5 mg IH Q2H PRN PRN Reason: Shortness of Breath Apixaban (Eliquis) 2.5 mg PO BID [facility] PRN Reason: Protocol Last Admin: 10/16/17 18:18 Dose: 2.5 mg Atenolol (Tenormin) 25 mg PO DAILY [facility] Last Admin: 10/16/17 10:35 Dose: Not Given Budesonide (Pulmicort Respules) 0.5 mg IH [id number] [facility] Last Admin: 10/16/17 07:44 Dose: 0.5 mg Cefepime HCl (Maxipime 1gm) 1 gm in 100 mls @ 100 mls/hr IVPB Q12 [facility] PRN Reason: Protocol Last Admin: 10/16/17 21:32 Dose: 100 mls/hr Vancomycin HCl (Vancomycin 1gm) 1 gm in 250 mls @ 167 mls/hr IVPB DAILY [facility] PRN Reason: Protocol Last Admin: 10/16/17 12:41 Dose: 167 mls/hr Sodium Chloride (Sodium Chloride 0.45%) 1,000 mls @ 60 mls/hr IV .[id number] [facility] Last Admin: 10/16/17 09:20 Dose: 60 mls/hr Insulin Human Regular 100 (units/ Sodium Chloride) 100 mls @ 9 mls/hr IV .[id number] PRN; Protocol; 9 UNITS/HR PRN Reason: TITRATE PER MD ORDER Last Titration: 10/16/17 21:59 Dose: 5 units/hr, 5 mls/hr Levalbuterol HCl (Xopenex) 1.25 mg IH [id number] [facility] Last Admin: 10/16/17 13:55 Dose: 1.25 mg Methylprednisolone (Solu-Medrol) 20 mg IVP Q12 [facility] Last Admin: 10/16/17 21:33 Dose: 20 mg Pantoprazole Sodium (Protonix Susp) 40 mg PO 0600 [facility] Last Admin: 10/16/17 09:16 Dose: 40 mg Verapamil HCl (Verapamil Inj) 2.5 mg IVP Q4H PRN PRN Reason: For heart rate >130 Last Admin: 10/16/17 09:07 Dose: 2.5 mg Verapamil HCl (Calan Tab) 40 mg PO TID [facility] Last Admin: 10/16/17 18:17 Dose: Not Given - Labs Labs: 10/16/17 07:40 10/16/17 07:40 PT 17.1 SECONDS (9.4-12.5) H 10/11/17 14:50 INR 1.49 (0.93-1.08) H 10/11/17 14:50 APTT 66.1 Seconds (25.1-36.5) H 10/16/17 07:40 - Constitutional Appears: Non-toxic, No Acute Distress, Chronically Ill - Head Exam Head Exam: ATRAUMATIC, NORMOCEPHALIC - Eye Exam Eye Exam: EOMI, PERRL Pupil Exam: NORMAL ACCOMODATION, PERRL - ENT Exam ENT Exam: Mucous Membranes Moist, Normal External Ear Exam, TM's Normal Bilaterally - Neck Exam Neck Exam: Full ROM, Normal Inspection - Respiratory Exam Respiratory Exam: Decreased Breath Sounds, Wheezes, NORMAL BREATHING PATTERN. absent: Rales, Rhonchi - Cardiovascular Exam Cardiovascular Exam: Tachycardia, Irregular Rhythm, +S1, +S2 - GI/Abdominal Exam GI & Abdominal Exam: Soft, Normal Bowel Sounds. absent: Distended, Tenderness - Extremities Exam Extremities Exam: Full ROM, Normal Inspection - Neurological Exam Neurological Exam: Alert, Awake, CN II-XII Intact, Oriented x3 - Psychiatric Exam Psychiatric exam: Normal Affect, Normal Mood - Skin Skin Exam: Intact, Normal Color Assessment and Plan - Assessment and Plan (Free Text) Assessment: 72 yo male with respiratory distress at home. Presented with SOB and required intubation and ventilation once in the [facility] ER. Patient with significant leukocytosis and borderline fevers here at [facility]. Procalcitonin sent. On Cefepime, Vancomycin IV, and Azithromycin. Started on Tamiflu. CT scan showing RML/RLL consolidation/infiltrates. Current antibiotic regimen is reasonable start point. Procalcitonin results of 18.11. Flynn cultures sent. Patient with lactic acidosis and electrolyte abnormalities. Hyponatremia. Acute renal failure with GFR less than 20 and creatinine of 4.1 on admission. Extubated yesterday. Improving. Pneumonia with RLL infiltrate on chest x-ray. Remains on Vancomycin IV, Azithromycin, and Cefepime for treatment. Most electrolyte abnormalities have normalized. Still elevated creatinine at 2.6. Urine cultures with gram negative rods identified as Proteus. On the whole improving rapidly. Back in NSR on Cardizem and Verapamil so far. Remains on BiPAP. Thank you for allowing me to participate in the care of the patient, we will follow with you.
[2017-10-17] MEDS: Levalbuterol 1.25 MG/3 ML Inhal Soln UD IH SCH ×4 (01:20→20:58)
--- NOTE | 2017-10-17 05:40 | CON ---
DATE: ENDOCRINOLOGY CONSULTATION LOCATION: ICU 129, room 7 HISTORY OF PRESENT ILLNESS: This is a 72-year-old male with known history of type 2 diabetes and underlying COPD, presenting here with progressive shortness of breath and evaluated to have an acute exacerbation of COPD with supervening acute respiratory failure and is now being referred for diabetic evaluation because of recent hyperglycemic accelerations as noted thereof. He has been started on IV Solu-Medrol at 20 mg IV q. 12 hours as noted. PAST MEDICAL HISTORY: As mentioned above, history of type 2 diabetes, currently on a combination of metformin given as 500 mg b.i.d. and glyburide given as 5 mg b.i.d.; history of hypertensive cardiovascular disease and dyslipidemia; history of hypothyroidism, currently on levothyroxine given as 100 mcg daily; history of chronic obstructive lung disease with multiple admissions for acute exacerbations of the same; prior history of congestive heart failure with underlying coronary artery disease. FAMILY HISTORY: Positive for diabetes and hypertension. SOCIAL HISTORY: The patient has a supportive family. There is a significant history of nicotine dependence with a [id number] per day history of smoking. No other known substance use. REVIEW OF SYSTEMS: As mentioned above. Admits to generalized body weakness with progressive bouts of dizziness and lightheadedness, worse on the day of admission. No chest pains or palpitations, but admits to progressive shortness of breath, initially on exertion and then at rest with supervening acute respiratory failure and subsequent endotracheal intubation. He was initially placed on the BiPAP with subsequent intubation as noted. His oral intake has been variable with nausea and dyspepsia and vague upper abdominal pains, also admits to marked polyuria, polydipsia and nocturia as noted. PHYSICAL EXAMINATION: GENERAL: This is an overweight male, in no apparent distress, currently extubated and on a BiPAP mask. VITAL SIGNS: Blood pressure of 160/100, pulse of 110 beats per minute, irregular; temperature 99; respirations 20; height is 5 feet 10 inches; weight is 236 pounds. HEENT: Head normocephalic. Eyes anicteric with pink conjunctivae. Funduscopy not possible at this time. Ears, nose and throat, otherwise, normal. NECK: Supple. Thyroid gland is normal in size. No carotid bruits or cervical adenopathy. CARDIOPULMONARY: Hyperdynamic precordium. S1, S2 is rapid and irregular. LUNGS: Show scattered rhonchi and bibasilar rales. ABDOMEN: Obese, soft with positive bowel sounds. EXTREMITIES: No peripheral edema. Pulses are +2 bilaterally. LABORATORY DATA: His chemistry showed a BUN of 61, sodium 157, potassium is 3.9, chloride 113, CO2 30, glucose 455, and creatinine 2.6. His glucose levels are ranging from 432 to 445 and over 500 mg/dL. A1c is 7.5%. ASSESSMENT: This is a 72-year-old male with uncontrolled and decompensated type 2 insulin-requiring diabetes with acute respiratory failure and previous endotracheal intubation, currently on a bilevel positive airway pressure mask with supervening hyperglycemic accelerations related to the intercurrent steroid therapy and associated increased insulin resistance thereof. He also has diabetic microvascular complications of retinopathy, polyneuropathy and nephropathy with diabetic microvascular complications of coronary artery disease and peripheral arterial disease and vasculopathy. PLAN OF MANAGEMENT: As discussed with staff who concur with the present intensive insulin therapy with an insulin drip infusion as ongoing at this time. We will also continue the vigorous IV hydration as given and obtain serial chemistries and supplement accordingly as needed and we will also adjust his infusion rate as indicated. We will obtain serial chemistries and supplement accordingly needed. Baseline thyroid function studies will be obtained and we will adjust his levothyroxine dose accordingly. We will follow with you. Roxy Angeles MD
[2017-10-17] MEDS ORDERED: Insulin Detemir 100 units/ml Vial (Levemir) SC SCH ×2 (07:11→16:56)
--- NOTE | 2017-10-17 07:16 | CP.CCUPN ---
<BroderickJenni lenz - Last Filed: 10/17/17 11:39> CCU Subjective - Physician Review Subjective (Free Text): 10/17/17 09:09 Patient with no acute overnight events. Slept all night with bipap. A febrile, and HR remains controlled. Denies nausea, vomiting or diarrhea. Tolerating diet. Critical Care Time Spent (in minutes): 45 CCU Objective - Vital Signs / Intake & Output Vital Signs (Last 4 hours): Vital Signs Pulse Resp BP Pulse Ox 10/17/17 06:30 52 L 18 150/65 100 10/17/17 06:00 58 L 15 146/67 100 10/17/17 05:30 51 L 13 149/66 99 10/17/17 05:04 65 23 10/17/17 05:00 61 26 H 72 L 10/17/17 04:30 59 L 15 162/67 H 94 L 10/17/17 04:00 153/51 H 10/17/17 03:59 57 L 14 100 10/17/17 03:30 163/70 H 10/17/17 03:29 70 24 99 10/17/17 03:23 67 16 On 3 litters nasal cannula. Intake and Output (Last 8hrs): Intake & Output 10/16/17 10/17/17 10/17/17 22:59 06:59 14:59 Intake Total 1400 745 Output Total 900 300 Balance 500 445 Intake: IV 600 745 Left Hand 250 Right Forearm 720 Oral 800 Output: Urine 900 300 Urethral ([place]) 900 300 Other: # Bowel Movements 1 - Physical Exam Head: Positive for: Normocephalic, Abrasion (left forehead (when questioned about fall, patient nods head that he fell)) Pupils: Positive for: PERRL Extroacular Muscles: Positive for: EOMI Mouth: Positive for: Moist Mucous Membranes Neck: Positive for: Normal Range of Motion Respiratory/Chest: Positive for: Wheezes. Negative for: Good Air Exchange, Respiratory Distress, Accessory Muscle Use, Decreased Breath Sounds, Rales, Retracting, Rhonchi, Tachypneic, Tender to Palpation Cardiovascular: Positive for: Irregular Rhythm. Negative for: Regular Rate and Rhythm, Tachycardic, Bradycardic, Rub, Gallop Abdomen: Positive for: Normal Bowel Sounds, Other (obese abdomen.). Negative for: Tenderness, Distention, Peritoneal Signs Genitourinary Male: Positive for: Other (incontinent of stool and urine) Lower Extremity: Positive for: Swelling, Other (chronic stasis skin changes). Negative for: Edema Neurological: Positive for: GCS=15, Speech Normal Skin: Positive for: Warm Psychiatric: Positive for: Alert, Oriented x 3 - Medications Active Medications: Active Medications Generic Name Dose Route Start Last Admin Trade Name Freq PRN Reason Stop Dose Admin Albuterol Sulfate 2.5 mg 10/11/17 17:34 Albuterol 0.083% Inhal Lydia (2.5 Mg/3 Ml) Ud IH Q2H PRN Shortness of Breath Apixaban 2.5 mg 10/16/17 11:45 10/16/17 18:18 Eliquis PO 2.5 mg BID GLORIA Administration Protocol Atenolol 25 mg 10/16/17 10:00 10/16/17 10:35 Tenormin PO Not Given DAILY GLORIA Budesonide 0.5 mg 10/13/17 20:00 10/16/17 20:10 Pulmicort Respules IH 0.5 mg [id number] GLORIA Administration Cefepime HCl 1 gm in 100 mls @ 100 mls/hr 10/11/17 22:00 10/16/17 21:32 Maxipime 1gm IVPB 100 mls/hr Q12 GLORIA Administration Protocol Vancomycin HCl 1 gm in 250 mls @ 167 mls/hr 10/12/17 10:00 10/16/17 12:41 Vancomycin 1gm IVPB 167 mls/hr DAILY GLORIA Administration Protocol Sodium Chloride 1,000 mls @ 60 mls/hr 10/16/17 09:00 10/16/17 09:20 Sodium Chloride 0.45% IV 60 mls/hr .[id number] GLORIA Administration Insulin Detemir 20 unit 10/17/17 07:11 Levemir SC HS GLORIA Insulin Human Regular 0 units 10/17/17 07:30 Humulin R Med SC ACHS GLORIA Protocol Levalbuterol HCl 1.25 mg 10/15/17 08:00 10/17/17 01:20 Xopenex IH 1.25 mg [id number] GLORIA Administration Methylprednisolone 20 mg 10/16/17 10:00 10/16/17 21:33 Solu-Medrol IVP 20 mg Q12 GLORIA Administration Pantoprazole Sodium 40 mg 10/15/17 06:00 10/16/17 09:16 Protonix Susp PO 40 mg 0600 GLORIA Administration Verapamil HCl 2.5 mg 10/15/17 16:44 10/16/17 09:07 Verapamil Inj IVP 2.5 mg Q4H PRN Administration For heart rate >130 Verapamil HCl 40 mg 10/16/17 17:47 10/16/17 18:17 Calan Tab PO Not Given TID GLORIA - Patient Studies Lab Studies: Lab Studies 10/17/17 10/17/17 10/17/17 Range/Units 06:59 06:05 05:20 WBC (4.5-11.0) 10^3/ul RBC (3.5-6.1) 10^6/uL Hgb (14.0-18.0) g/dL Hct (42.0-52.0) % MCV (80.0-105.0) fl MCH (25.0-35.0) pg MCHC (31.0-37.0) g/dl RDW (11.5-14.5) % Plt Count (120.0-450.0) 10^3/uL MPV (7.0-11.0) fl Gran % (50.0-68.0) % Lymph % (Auto) (22.0-35.0) % [place] % (Auto) (1.0-6.0) % Eos % (Auto) (1.5-5.0) % Baso % (Auto) (0.0-3.0) % Gran # (1.4-6.5) Lymph # (Auto) (1.2-3.4) [place]ipley # (Auto) (0.1-0.6) Eos # (Auto) (0.0-0.7) Baso # (Auto) (0.0-2.0) K/mm3 APTT (25.1-36.5) Seconds Sodium (132-148) mmol/L Potassium (3.6-5.0) mmol/L Chloride (98-107) mmol/L Carbon Dioxide (21-33) mmol/L Anion Gap (10-20) BUN (7-21) mg/dL Creatinine (0.8-1.5) mg/dl Est GFR ( Amer) Est GFR (Non-Af Amer) POC Glucose (mg/dL) 159 H 137 H 106 (65-110) mg/dL Random Glucose (70-110) mg/dL Hemoglobin A1c (4.2-6.5) % Calcium (8.4-10.5) mg/dL Phosphorus (2.5-4.5) mg/dL Magnesium (1.7-2.2) mg/dL Total Bilirubin (0.2-1.3) mg/dL AST (17-59) U/L ALT (7-56) U/L Alkaline Phosphatase (38-126) U/L Total Protein (5.8-8.3) g/dL Albumin (3.0-4.8) g/dL Globulin gm/dL Albumin/Globulin Ratio (1.1-1.8) Triglycerides (35-160) mg/dL Cholesterol (130-200) mg/dL LDL Cholesterol Direct (0-129) mg/dL HDL Cholesterol (29-60) mg/dL TSH 3rd Generation (0.46-4.68) mIU/mL 10/17/17 10/17/17 10/17/17 Range/Units 04:09 03:27 02:28 WBC (4.5-11.0) 10^3/ul RBC (3.5-6.1) 10^6/uL Hgb (14.0-18.0) g/dL Hct (42.0-52.0) % MCV (80.0-105.0) fl MCH (25.0-35.0) pg MCHC (31.0-37.0) g/dl RDW (11.5-14.5) % Plt Count (120.0-450.0) 10^3/uL MPV (7.0-11.0) fl Gran % (50.0-68.0) % Lymph % (Auto) (22.0-35.0) % [place]y % (Auto) (1.0-6.0) % Eos % (Auto) (1.5-5.0) % Baso % (Auto) (0.0-3.0) % Gran # (1.4-6.5) Lymph # (Auto) (1.2-3.4) Ripley # (Auto) (0.1-0.6) Eos # (Auto) (0.0-0.7) Baso # (Auto) (0.0-2.0) K/mm3 APTT (25.1-36.5) Seconds Sodium (132-148) mmol/L Potassium (3.6-5.0) mmol/L Chloride (98-107) mmol/L Carbon Dioxide (21-33) mmol/L Anion Gap (10-20) BUN (7-21) mg/dL Creatinine (0.8-1.5) mg/dl Est GFR ( Amer) Est GFR (Non-Af Amer) POC Glucose (mg/dL) 135 H 119 H 122 H (65-110) mg/dL Random Glucose (70-110) mg/dL Hemoglobin A1c (4.2-6.5) % Calcium (8.4-10.5) mg/dL Phosphorus (2.5-4.5) mg/dL Magnesium (1.7-2.2) mg/dL Total Bilirubin (0.2-1.3) mg/dL AST (17-59) U/L ALT (7-56) U/L Alkaline Phosphatase (38-126) U/L Total Protein (5.8-8.3) g/dL Albumin (3.0-4.8) g/dL Globulin gm/dL Albumin/Globulin Ratio (1.1-1.8) Triglycerides (35-160) mg/dL Cholesterol (130-200) mg/dL LDL Cholesterol Direct (0-129) mg/dL HDL Cholesterol (29-60) mg/dL TSH 3rd Generation (0.46-4.68) mIU/mL 10/17/17 10/17/17 10/16/17 Range/Units 01:30 00:08 22:51 WBC (4.5-11.0) 10^3/ul RBC (3.5-6.1) 10^6/uL Hgb (14.0-18.0) g/dL Hct (42.0-52.0) % MCV (80.0-105.0) fl MCH (25.0-35.0) pg MCHC (31.0-37.0) g/dl RDW (11.5-14.5) % Plt Count (120.0-450.0) 10^3/uL MPV (7.0-11.0) fl Gran % (50.0-68.0) % Lymph % (Auto) (22.0-35.0) % Ripley % (Auto) (1.0-6.0) % Eos % (Auto) (1.5-5.0) % Baso % (Auto) (0.0-3.0) % Gran # (1.4-6.5) Lymph # (Auto) (1.2-3.4) [place]y # (Auto) (0.1-0.6) Eos # (Auto) (0.0-0.7) Baso # (Auto) (0.0-2.0) K/mm3 APTT (25.1-36.5) Seconds Sodium (132-148) mmol/L Potassium (3.6-5.0) mmol/L Chloride (98-107) mmol/L Carbon Dioxide (21-33) mmol/L Anion Gap (10-20) BUN (7-21) mg/dL Creatinine (0.8-1.5) mg/dl Est GFR ( Amer) Est GFR (Non-Af Amer) POC Glucose (mg/dL) 118 H 138 H 151 H (65-110) mg/dL Random Glucose (70-110) mg/dL Hemoglobin A1c (4.2-6.5) % Calcium (8.4-10.5) mg/dL Phosphorus (2.5-4.5) mg/dL Magnesium (1.7-2.2) mg/dL Total Bilirubin (0.2-1.3) mg/dL AST (17-59) U/L ALT (7-56) U/L Alkaline Phosphatase (38-126) U/L Total Protein (5.8-8.3) g/dL Albumin (3.0-4.8) g/dL Globulin gm/dL Albumin/Globulin Ratio (1.1-1.8) Triglycerides (35-160) mg/dL Cholesterol (130-200) mg/dL LDL Cholesterol Direct (0-129) mg/dL HDL Cholesterol (29-60) mg/dL TSH 3rd Generation (0.46-4.68) mIU/mL 10/16/17 10/16/17 10/16/17 Range/Units 22:07 21:02 20:15 WBC (4.5-11.0) 10^3/ul RBC (3.5-6.1) 10^6/uL Hgb (14.0-18.0) g/dL Hct (42.0-52.0) % MCV (80.0-105.0) fl MCH (25.0-35.0) pg MCHC (31.0-37.0) g/dl RDW (11.5-14.5) % Plt Count (120.0-450.0) 10^3/uL MPV (7.0-11.0) fl Gran % (50.0-68.0) % Lymph % (Auto) (22.0-35.0) % Ripley % (Auto) (1.0-6.0) % Eos % (Auto) (1.5-5.0) % Baso % (Auto) (0.0-3.0) % Gran # (1.4-6.5) Lymph # (Auto) (1.2-3.4) [place]y # (Auto) (0.1-0.6) Eos # (Auto) (0.0-0.7) Baso # (Auto) (0.0-2.0) K/mm3 APTT (25.1-36.5) Seconds Sodium (132-148) mmol/L Potassium (3.6-5.0) mmol/L Chloride (98-107) mmol/L Carbon Dioxide (21-33) mmol/L Anion Gap (10-20) BUN (7-21) mg/dL Creatinine (0.8-1.5) mg/dl Est GFR ( Amer) Est GFR (Non-Af Amer) POC Glucose (mg/dL) 147 H 207 H 219 H (65-110) mg/dL Random Glucose (70-110) mg/dL Hemoglobin A1c (4.2-6.5) % Calcium (8.4-10.5) mg/dL Phosphorus (2.5-4.5) mg/dL Magnesium (1.7-2.2) mg/dL Total Bilirubin (0.2-1.3) mg/dL AST (17-59) U/L ALT (7-56) U/L Alkaline Phosphatase (38-126) U/L Total Protein (5.8-8.3) g/dL Albumin (3.0-4.8) g/dL Globulin gm/dL Albumin/Globulin Ratio (1.1-1.8) Triglycerides (35-160) mg/dL Cholesterol (130-200) mg/dL LDL Cholesterol Direct (0-129) mg/dL HDL Cholesterol (29-60) mg/dL TSH 3rd Generation (0.46-4.68) mIU/mL 10/16/17 10/16/17 10/16/17 Range/Units 19:06 18:28 17:24 WBC (4.5-11.0) 10^3/ul RBC (3.5-6.1) 10^6/uL Hgb (14.0-18.0) g/dL Hct (42.0-52.0) % MCV (80.0-105.0) fl MCH (25.0-35.0) pg MCHC (31.0-37.0) g/dl RDW (11.5-14.5) % Plt Count (120.0-450.0) 10^3/uL MPV (7.0-11.0) fl Gran % (50.0-68.0) % Lymph % (Auto) (22.0-35.0) % [place]y % (Auto) (1.0-6.0) % Eos % (Auto) (1.5-5.0) % Baso % (Auto) (0.0-3.0) % Gran # (1.4-6.5) Lymph # (Auto) (1.2-3.4) [place]y # (Auto) (0.1-0.6) Eos # (Auto) (0.0-0.7) Baso # (Auto) (0.0-2.0) K/mm3 APTT (25.1-36.5) Seconds Sodium (132-148) mmol/L Potassium (3.6-5.0) mmol/L Chloride (98-107) mmol/L Carbon Dioxide (21-33) mmol/L Anion Gap (10-20) BUN (7-21) mg/dL Creatinine (0.8-1.5) mg/dl Est GFR ( Amer) Est GFR (Non-Af Amer) POC Glucose (mg/dL) 259 H 298 H 280 H (65-110) mg/dL Random Glucose (70-110) mg/dL Hemoglobin A1c (4.2-6.5) % Calcium (8.4-10.5) mg/dL Phosphorus (2.5-4.5) mg/dL Magnesium (1.7-2.2) mg/dL Total Bilirubin (0.2-1.3) mg/dL AST (17-59) U/L ALT (7-56) U/L Alkaline Phosphatase (38-126) U/L Total Protein (5.8-8.3) g/dL Albumin (3.0-4.8) g/dL Globulin gm/dL Albumin/Globulin Ratio (1.1-1.8) Triglycerides (35-160) mg/dL Cholesterol (130-200) mg/dL LDL Cholesterol Direct (0-129) mg/dL HDL Cholesterol (29-60) mg/dL TSH 3rd Generation (0.46-4.68) mIU/mL 10/16/17 10/16/17 10/16/17 Range/Units 16:33 14:18 13:54 WBC (4.5-11.0) 10^3/ul RBC (3.5-6.1) 10^6/uL Hgb (14.0-18.0) g/dL Hct (42.0-52.0) % MCV (80.0-105.0) fl MCH (25.0-35.0) pg MCHC (31.0-37.0) g/dl RDW (11.5-14.5) % Plt Count (120.0-450.0) 10^3/uL MPV (7.0-11.0) fl Gran % (50.0-68.0) % Lymph % (Auto) (22.0-35.0) % [place] % (Auto) (1.0-6.0) % Eos % (Auto) (1.5-5.0) % Baso % (Auto) (0.0-3.0) % Gran # (1.4-6.5) Lymph # (Auto) (1.2-3.4) [place]y # (Auto) (0.1-0.6) Eos # (Auto) (0.0-0.7) Baso # (Auto) (0.0-2.0) K/mm3 APTT (25.1-36.5) Seconds Sodium (132-148) mmol/L Potassium (3.6-5.0) mmol/L Chloride (98-107) mmol/L Carbon Dioxide (21-33) mmol/L Anion Gap (10-20) BUN (7-21) mg/dL Creatinine (0.8-1.5) mg/dl Est GFR ( Amer) Est GFR (Non-Af Amer) POC Glucose (mg/dL) 310 H 422 H* 432 H* (65-110) mg/dL Random Glucose (70-110) mg/dL Hemoglobin A1c (4.2-6.5) % Calcium (8.4-10.5) mg/dL Phosphorus (2.5-4.5) mg/dL Magnesium (1.7-2.2) mg/dL Total Bilirubin (0.2-1.3) mg/dL AST (17-59) U/L ALT (7-56) U/L Alkaline Phosphatase (38-126) U/L Total Protein (5.8-8.3) g/dL Albumin (3.0-4.8) g/dL Globulin gm/dL Albumin/Globulin Ratio (1.1-1.8) Triglycerides (35-160) mg/dL Cholesterol (130-200) mg/dL LDL Cholesterol Direct (0-129) mg/dL HDL Cholesterol (29-60) mg/dL TSH 3rd Generation (0.46-4.68) mIU/mL 10/16/17 10/16/17 10/16/17 Range/Units 13:07 11:58 10:57 WBC (4.5-11.0) 10^3/ul RBC (3.5-6.1) 10^6/uL Hgb (14.0-18.0) g/dL Hct (42.0-52.0) % MCV (80.0-105.0) fl MCH (25.0-35.0) pg MCHC (31.0-37.0) g/dl RDW (11.5-14.5) % Plt Count (120.0-450.0) 10^3/uL MPV (7.0-11.0) fl Gran % (50.0-68.0) % Lymph % (Auto) (22.0-35.0) % [place]y % (Auto) (1.0-6.0) % Eos % (Auto) (1.5-5.0) % Baso % (Auto) (0.0-3.0) % Gran # (1.4-6.5) Lymph # (Auto) (1.2-3.4) [place]y # (Auto) (0.1-0.6) Eos # (Auto) (0.0-0.7) Baso # (Auto) (0.0-2.0) K/mm3 APTT (25.1-36.5) Seconds Sodium (132-148) mmol/L Potassium (3.6-5.0) mmol/L Chloride (98-107) mmol/L Carbon Dioxide (21-33) mmol/L Anion Gap (10-20) BUN (7-21) mg/dL Creatinine (0.8-1.5) mg/dl Est GFR ( Amer) Est GFR (Non-Af Amer) POC Glucose (mg/dL) 445 H* 457 H* > 500 H* (65-110) mg/dL Random Glucose (70-110) mg/dL Hemoglobin A1c (4.2-6.5) % Calcium (8.4-10.5) mg/dL Phosphorus (2.5-4.5) mg/dL Magnesium (1.7-2.2) mg/dL Total Bilirubin (0.2-1.3) mg/dL AST (17-59) U/L ALT (7-56) U/L Alkaline Phosphatase (38-126) U/L Total Protein (5.8-8.3) g/dL Albumin (3.0-4.8) g/dL Globulin gm/dL Albumin/Globulin Ratio (1.1-1.8) Triglycerides (35-160) mg/dL Cholesterol (130-200) mg/dL LDL Cholesterol Direct (0-129) mg/dL HDL Cholesterol (29-60) mg/dL TSH 3rd Generation (0.46-4.68) mIU/mL 10/16/17 10/16/17 10/16/17 Range/Units 07:40 07:40 07:40 WBC (4.5-11.0) 10^3/ul RBC (3.5-6.1) 10^6/uL Hgb (14.0-18.0) g/dL Hct (42.0-52.0) % MCV (80.0-105.0) fl MCH (25.0-35.0) pg MCHC (31.0-37.0) g/dl RDW (11.5-14.5) % Plt Count (120.0-450.0) 10^3/uL MPV (7.0-11.0) fl Gran % (50.0-68.0) % Lymph % (Auto) (22.0-35.0) % [place]y % (Auto) (1.0-6.0) % Eos % (Auto) (1.5-5.0) % Baso % (Auto) (0.0-3.0) % Gran # (1.4-6.5) Lymph # (Auto) (1.2-3.4) [place]y # (Auto) (0.1-0.6) Eos # (Auto) (0.0-0.7) Baso # (Auto) (0.0-2.0) K/mm3 APTT 66.1 H (25.1-36.5) Seconds Sodium (132-148) mmol/L Potassium (3.6-5.0) mmol/L Chloride (98-107) mmol/L Carbon Dioxide (21-33) mmol/L Anion Gap (10-20) BUN (7-21) mg/dL Creatinine (0.8-1.5) mg/dl Est GFR ( Amer) Est GFR (Non-Af Amer) POC Glucose (mg/dL) 335 H (65-110) mg/dL Random Glucose (70-110) mg/dL Hemoglobin A1c (4.2-6.5) % Calcium (8.4-10.5) mg/dL Phosphorus (2.5-4.5) mg/dL Magnesium (1.7-2.2) mg/dL Total Bilirubin (0.2-1.3) mg/dL AST (17-59) U/L ALT (7-56) U/L Alkaline Phosphatase (38-126) U/L Total Protein (5.8-8.3) g/dL Albumin (3.0-4.8) g/dL Globulin gm/dL Albumin/Globulin Ratio (1.1-1.8) Triglycerides (35-160) mg/dL Cholesterol (130-200) mg/dL LDL Cholesterol Direct (0-129) mg/dL HDL Cholesterol (29-60) mg/dL TSH 3rd Generation 0.28 L (0.46-4.68) mIU/mL 10/16/17 10/16/17 10/16/17 Range/Units 07:40 07:40 07:40 WBC 13.8 H (4.5-11.0) 10^3/ul RBC 3.94 (3.5-6.1) 10^6/uL Hgb 13.3 L (14.0-18.0) g/dL Hct 39.9 L (42.0-52.0) % MCV 101.3 (80.0-105.0) fl MCH 33.8 (25.0-35.0) pg MCHC 33.3 (31.0-37.0) g/dl RDW 14.8 H (11.5-14.5) % Plt Count 173 (120.0-450.0) 10^3/uL MPV 12.0 H (7.0-11.0) fl Gran % 90.7 H (50.0-68.0) % Lymph % (Auto) 4.6 L (22.0-35.0) % R[place]y % (Auto) 4.6 (1.0-6.0) % Eos % (Auto) 0.0 L (1.5-5.0) % Baso % (Auto) 0.1 (0.0-3.0) % Gran # 12.54 H (1.4-6.5) Lymph # (Auto) 0.6 L (1.2-3.4) Ripley # (Auto) 0.6 (0.1-0.6) Eos # (Auto) 0.0 (0.0-0.7) Baso # (Auto) 0.02 (0.0-2.0) K/mm3 APTT (25.1-36.5) Seconds Sodium 157 H* (132-148) mmol/L Potassium 3.9 (3.6-5.0) mmol/L Chloride 113 H (98-107) mmol/L Carbon Dioxide 30 (21-33) mmol/L Anion Gap 17 (10-20) BUN 61 H (7-21) mg/dL Creatinine 2.6 H (0.8-1.5) mg/dl Est GFR ( Amer) 29 Est GFR (Non-Af Amer) 24 POC Glucose (mg/dL) (65-110) mg/dL Random Glucose 455 H* D (70-110) mg/dL Hemoglobin A1c 7.5 H (4.2-6.5) % Calcium 8.6 (8.4-10.5) mg/dL Phosphorus 3.0 (2.5-4.5) mg/dL Magnesium 2.1 (1.7-2.2) mg/dL Total Bilirubin 0.9 (0.2-1.3) mg/dL AST 62 H D (17-59) U/L ALT 32 (7-56) U/L Alkaline Phosphatase 101 (38-126) U/L Total Protein 7.1 (5.8-8.3) g/dL Albumin 3.0 (3.0-4.8) g/dL Globulin 4.1 gm/dL Albumin/Globulin Ratio 0.7 L (1.1-1.8) Triglycerides 252 H (35-160) mg/dL Cholesterol 124 L (130-200) mg/dL LDL Cholesterol Direct 85 (0-129) mg/dL HDL Cholesterol 15 L (29-60) mg/dL TSH 3rd Generation (0.46-4.68) mIU/mL Laboratory Results - last 24 hr 10/16/17 10/16/17 10/16/17 07:40 07:40 07:40 WBC 13.8 H RBC 3.94 Hgb 13.3 L Hct 39.9 L MCV 101.3 MCH 33.8 MCHC 33.3 RDW 14.8 H Plt Count 173 MPV 12.0 H Gran % 90.7 H Lymph % (Auto) 4.6 L Ripley % (Auto) 4.6 Eos % (Auto) 0.0 L Baso % (Auto) 0.1 Gran # 12.54 H Lymph # (Auto) 0.6 L [place]y # (Auto) 0.6 Eos # (Auto) 0.0 Baso # (Auto) 0.02 APTT Sodium 157 H* Potassium 3.9 Chloride 113 H Carbon Dioxide 30 Anion Gap 17 BUN 61 H Creatinine 2.6 H Est GFR ( Amer) 29 Est GFR (Non-Af Amer) 24 POC Glucose (mg/dL) Random Glucose 455 H* D Hemoglobin A1c 7.5 H Calcium 8.6 Phosphorus 3.0 Magnesium 2.1 Total Bilirubin 0.9 AST 62 H D ALT 32 Alkaline Phosphatase 101 Total Protein 7.1 Albumin 3.0 Globulin 4.1 Albumin/Globulin Ratio 0.7 L Triglycerides 252 H Cholesterol 124 L LDL Cholesterol Direct 85 HDL Cholesterol 15 L TSH 3rd Generation 10/16/17 10/16/17 10/16/17 07:40 07:40 07:40 WBC RBC Hgb Hct MCV MCH MCHC RDW Plt Count MPV Gran % Lymph % (Auto) Ripley % (Auto) Eos % (Auto) Baso % (Auto) Gran # Lymph # (Auto) [place]ipley # (Auto) Eos # (Auto) Baso # (Auto) APTT 66.1 H Sodium Potassium Chloride Carbon Dioxide Anion Gap BUN Creatinine Est GFR ( Amer) Est GFR (Non-Af Amer) POC Glucose (mg/dL) 335 H Random Glucose Hemoglobin A1c Calcium Phosphorus Magnesium Total Bilirubin AST ALT Alkaline Phosphatase Total Protein Albumin Globulin Albumin/Globulin Ratio Triglycerides Cholesterol LDL Cholesterol Direct HDL Cholesterol TSH 3rd Generation 0.28 L 10/16/17 10/16/17 10/16/17 10:57 11:58 13:07 WBC RBC Hgb Hct MCV MCH MCHC RDW Plt Count MPV Gran % Lymph % (Auto) [place] % (Auto) Eos % (Auto) Baso % (Auto) Gran # Lymph # (Auto) [place] # (Auto) Eos # (Auto) Baso # (Auto) APTT Sodium Potassium Chloride Carbon Dioxide Anion Gap BUN Creatinine Est GFR ( Amer) Est GFR (Non-Af Amer) POC Glucose (mg/dL) > 500 H* 457 H* 445 H* Random Glucose Hemoglobin A1c Calcium Phosphorus Magnesium Total Bilirubin AST ALT Alkaline Phosphatase Total Protein Albumin Globulin Albumin/Globulin Ratio Triglycerides Cholesterol LDL Cholesterol Direct HDL Cholesterol TSH 3rd Generation 10/16/17 10/16/17 10/16/17 13:54 14:18 16:33 WBC RBC Hgb Hct MCV MCH MCHC RDW Plt Count MPV Gran % Lymph % (Auto) [place] % (Auto) Eos % (Auto) Baso % (Auto) Gran # Lymph # (Auto) [place] # (Auto) Eos # (Auto) Baso # (Auto) APTT Sodium Potassium Chloride Carbon Dioxide Anion Gap BUN Creatinine Est GFR ( Amer) Est GFR (Non-Af Amer) POC Glucose (mg/dL) 432 H* 422 H* 310 H Random Glucose Hemoglobin A1c Calcium Phosphorus Magnesium Total Bilirubin AST ALT Alkaline Phosphatase Total Protein Albumin Globulin Albumin/Globulin Ratio Triglycerides Cholesterol LDL Cholesterol Direct HDL Cholesterol TSH 3rd Generation 10/16/17 10/16/17 10/16/17 17:24 18:28 19:06 WBC RBC Hgb Hct MCV MCH MCHC RDW Plt Count MPV Gran % Lymph % (Auto) [place] % (Auto) Eos % (Auto) Baso % (Auto) Gran # Lymph # (Auto) [place] # (Auto) Eos # (Auto) Baso # (Auto) APTT Sodium Potassium Chloride Carbon Dioxide Anion Gap BUN Creatinine Est GFR ( Amer) Est GFR (Non-Af Amer) POC Glucose (mg/dL) 280 H 298 H 259 H Random Glucose Hemoglobin A1c Calcium Phosphorus Magnesium Total Bilirubin AST ALT Alkaline Phosphatase Total Protein Albumin Globulin Albumin/Globulin Ratio Triglycerides Cholesterol LDL Cholesterol Direct HDL Cholesterol TSH 3rd Generation 10/16/17 10/16/17 10/16/17 20:15 21:02 22:07 WBC RBC Hgb Hct MCV MCH MCHC RDW Plt Count MPV Gran % Lymph % (Auto) [place] % (Auto) Eos % (Auto) Baso % (Auto) Gran # Lymph # (Auto) [place] # (Auto) Eos # (Auto) Baso # (Auto) APTT Sodium Potassium Chloride Carbon Dioxide Anion Gap BUN Creatinine Est GFR ( Amer) Est GFR (Non-Af Amer) POC Glucose (mg/dL) 219 H 207 H 147 H Random Glucose Hemoglobin A1c Calcium Phosphorus Magnesium Total Bilirubin AST ALT Alkaline Phosphatase Total Protein Albumin Globulin Albumin/Globulin Ratio Triglycerides Cholesterol LDL Cholesterol Direct HDL Cholesterol TSH 3rd Generation 10/16/17 10/17/17 10/17/17 22:51 00:08 01:30 WBC RBC Hgb Hct MCV MCH MCHC RDW Plt Count MPV Gran % Lymph % (Auto) [place] % (Auto) Eos % (Auto) Baso % (Auto) Gran # Lymph # (Auto) [place] # (Auto) Eos # (Auto) Baso # (Auto) APTT Sodium Potassium Chloride Carbon Dioxide Anion Gap BUN Creatinine Est GFR ( Amer) Est GFR (Non-Af Amer) POC Glucose (mg/dL) 151 H 138 H 118 H Random Glucose Hemoglobin A1c Calcium Phosphorus Magnesium Total Bilirubin AST ALT Alkaline Phosphatase Total Protein Albumin Globulin Albumin/Globulin Ratio Triglycerides Cholesterol LDL Cholesterol Direct HDL Cholesterol TSH 3rd Generation 10/17/17 10/17/17 10/17/17 02:28 03:27 04:09 WBC RBC Hgb Hct MCV MCH MCHC RDW Plt Count MPV Gran % Lymph % (Auto) [place] % (Auto) Eos % (Auto) Baso % (Auto) Gran # Lymph # (Auto) [place] # (Auto) Eos # (Auto) Baso # (Auto) APTT Sodium Potassium Chloride Carbon Dioxide Anion Gap BUN Creatinine Est GFR ( Amer) Est GFR (Non-Af Amer) POC Glucose (mg/dL) 122 H 119 H 135 H Random Glucose Hemoglobin A1c Calcium Phosphorus Magnesium Total Bilirubin AST ALT Alkaline Phosphatase Total Protein Albumin Globulin Albumin/Globulin Ratio Triglycerides Cholesterol LDL Cholesterol Direct HDL Cholesterol TSH 3rd Generation 10/17/17 10/17/17 10/17/17 05:20 06:05 06:59 WBC RBC Hgb Hct MCV MCH MCHC RDW Plt Count MPV Gran % Lymph % (Auto) [place] % (Auto) Eos % (Auto) Baso % (Auto) Gran # Lymph # (Auto) [place] # (Auto) Eos # (Auto) Baso # (Auto) APTT Sodium Potassium Chloride Carbon Dioxide Anion Gap BUN Creatinine Est GFR ( Amer) Est GFR (Non-Af Amer) POC Glucose (mg/dL) 106 137 H 159 H Random Glucose Hemoglobin A1c Calcium Phosphorus Magnesium Total Bilirubin AST ALT Alkaline Phosphatase Total Protein Albumin Globulin Albumin/Globulin Ratio Triglycerides Cholesterol LDL Cholesterol Direct HDL Cholesterol TSH 3rd Generation EKG/Cardiology Studies: Cardiology / EKG Studies 10/16/17 07:00 ELECTROCARDIOGRAM Routine Comment: Reason For Exam: PAF PRE OP:: N Does Patient Have a Pacemaker?: No PERFORMING PHYSICIAN/PROVIDER:: Josue Foster 10/17/17 07:00 ELECTROCARDIOGRAM Routine Comment: Reason For Exam: PAF PRE OP:: N Does Patient Have a Pacemaker?: No Fingerstick Blood Sugar Results: 173 Results Reviewed to Date: Yes Critical Care Progress Note - Prophylaxis GI Prophylaxis GI: PPI - Prophylaxis DVT Prophylaxis DVT: Not Indicated (eliquis) - Nutrition Nutrition: Nutrition Category Date Time Status Dysphagia/Modified Consistency Diet [DIET] Diets 10/13/17 Dinner Ordered Assessment/Plan - Assessment and Plan (Free Text) Assessment: Patient is a 72 yo male with who presented with shortness of breath, and was found to be in severe sepsis with multi organ dysfunction likely due to community acquired pneumonia and UTI requiring intubation s/p extubation. Patient initially had respiratory issues and had to be placed on bipap, which has tremendously improved now on nasal cannula. During the course of hospitalization patient developed RVR afib, now controlled with verapamil. Patient has since then been tolerating po intake and is doing well out of bed to chair. Plan: Neurology: stable at baseline Pulm- Hypoxemic respiratory failure likely secondary to pneumonia and copd exacerbation - Saturating well on bipap - Continue with nasal cannula to maintain O2 sat above 90%. - head of bed above 35 degrees - continue with bronchodilators prn and standing dose - On solu medrol tapering dose - Also on pulmocort - on abx for pneumonia Cardio: - Severe sepsis with transient hypotention, hypotention resolved. - RVR afib- now controlled on verapamil and atenolol. - Cardiology following, on eliquis for afib. - Maintain MAP above 65%. Renal: FABRICIO on CKD- likely pre-renal versus intrinsic - creatinine trending down, will continue to monitor Endo: Uncontrolled DM, - Insulin discontinued, now on levemir hs. - Endo following, ISS - moderate carb diet, and taper solumedrol. Heme: h/h stable, will continue to monitor ID: Severe sepsis due to CAP and urosepsis - Leukocytosis trended down, and afebrile - Will continue with cefepime/vanco/zithromax as per ID. - no growth on blood culture, urine with proteus - ID following GI: on dysphasia diet. on ppi for gi prophylaxis. Tobacco abuse- on nicotine patch. DVT prophylaxis: On eliquis for afib. Dispo- Patient is northothermic, euvolemic, and normotension, able to tolerate po intake. Patient to be transferred to telemetry to continue PT. Patient seen, examined and case discussed with Dr Mueller. - Date & Time Date: 10/17/17 Time: 11:30 <Duncan Mueller - Last Filed: 10/17/17 12:53> CCU Objective - Vital Signs / Intake & Output Vital Signs (Last 4 hours): Vital Signs Pulse BP 10/17/17 10:26 73 120/52 L Intake and Output (Last 8hrs): Intake & Output 10/16/17 10/17/17 10/17/17 22:59 06:59 14:59 Intake Total 1400 745 Output Total 900 300 Balance 500 445 Intake: IV 600 745 Left Hand 250 Right Forearm 720 Oral 800 Output: Urine 900 300 Urethral ([place]) 900 300 Other: # Bowel Movements 1 - Medications Active Medications: Active Medications Generic Name Dose Route Start Last Admin Trade Name Freq PRN Reason Stop Dose Admin Albuterol Sulfate 2.5 mg 10/11/17 17:34 Albuterol 0.083% Inhal Lydia (2.5 Mg/3 Ml) Ud IH Q2H PRN Shortness of Breath Apixaban 2.5 mg 10/16/17 11:45 10/17/17 10:26 Eliquis PO 2.5 mg BID GLORIA Administration Protocol Atenolol 25 mg 10/16/17 10:00 10/17/17 10:26 Tenormin PO 25 mg DAILY GLORIA Administration Budesonide 0.5 mg 10/13/17 20:00 10/17/17 08:17 Pulmicort Respules IH 0.5 mg [id number] GLORIA Administration Cefepime HCl 1 gm in 100 mls @ 100 mls/hr 10/11/17 22:00 10/17/17 10:27 Maxipime 1gm IVPB 100 mls/hr Q12 GLORIA Administration Protocol Vancomycin HCl 1 gm in 250 mls @ 167 mls/hr 10/12/17 10:00 10/17/17 10:27 Vancomycin 1gm IVPB 167 mls/hr DAILY GLORIA Administration Protocol Sodium Chloride 1,000 mls @ 60 mls/hr 10/16/17 09:00 10/16/17 09:20 Sodium Chloride 0.45% IV 60 mls/hr .[id number] GLORIA Administration Insulin Detemir 20 unit 10/17/17 07:11 10/17/17 07:49 Levemir SC 20 unit HS GLORIA Administration Insulin Human Regular 0 units 10/17/17 07:30 10/17/17 12:13 Humulin R Med SC 1 units ACHS GLORIA Administration Protocol Levalbuterol HCl 1.25 mg 10/15/17 08:00 10/17/17 08:17 Xopenex IH 1.25 mg [id number] GLORIA Administration Methylprednisolone 20 mg 10/16/17 10:00 10/17/17 10:26 Solu-Medrol IVP 20 mg Q12 GLORIA Administration Pantoprazole Sodium 40 mg 10/15/17 06:00 10/17/17 09:33 Protonix Susp PO 40 mg 0600 GLORIA Administration Verapamil HCl 2.5 mg 10/15/17 16:44 10/16/17 09:07 Verapamil Inj IVP 2.5 mg Q4H PRN Administration For heart rate >130 Verapamil HCl 40 mg 10/16/17 17:47 10/17/17 10:26 Calan Tab PO 40 mg TID GLORIA Administration - Patient Studies Lab Studies: Lab Studies 10/17/17 10/17/17 10/17/17 Range/Units 08:46 08:40 08:12 WBC 9.4 D (4.5-11.0) 10^3/ul RBC 3.86 (3.5-6.1) 10^6/uL Hgb 13.0 L (14.0-18.0) g/dL Hct 39.4 L (42.0-52.0) % MCV 102.1 (80.0-105.0) fl MCH 33.7 (25.0-35.0) pg MCHC 33.0 (31.0-37.0) g/dl RDW 15.2 H (11.5-14.5) % Plt Count 154 (120.0-450.0) 10^3/uL MPV 12.3 H (7.0-11.0) fl pCO2 36 (35-45) mm/Hg pO2 60.0 L (80-100) mm/Hg HCO3 25.6 (21-28) mmol/L ABG pH 7.46 H (7.35-7.45) ABG Total CO2 26.7 (22-28) mmol.L ABG O2 Saturation 94.1 L (95-98) % ABG O2 Content 20.3 (15-23) ML/dl ABG Base Excess 2.0 (-2.0-3.0) mmol/L ABG Hemoglobin 15.8 (11.7-17.4) g/dL ABG Carboxyhemoglobin 1.7 H (0.5-1.5) % POC ABG HHb (Measured) 5.7 H (0-5) % ABG Methemoglobin 0.9 (0.0-3.0) % ABG O2 Capacity 21.6 (16-24) mL/dl Hgb O2 Saturation 91.7 L (95.0-98.0) % FiO2 44.0 % Sodium (132-148) mmol/L Potassium (3.6-5.0) mmol/L Chloride (98-107) mmol/L Carbon Dioxide (21-33) mmol/L Anion Gap (10-20) BUN (7-21) mg/dL Creatinine (0.8-1.5) mg/dl Est GFR ( Amer) Est GFR (Non-Af Amer) POC Glucose (mg/dL) 195 H (65-110) mg/dL Random Glucose (70-110) mg/dL Hemoglobin A1c (4.2-6.5) % Calcium (8.4-10.5) mg/dL Total Bilirubin (0.2-1.3) mg/dL AST (17-59) U/L ALT (7-56) U/L Alkaline Phosphatase (38-126) U/L Total Protein (5.8-8.3) g/dL Albumin (3.0-4.8) g/dL Globulin gm/dL Albumin/Globulin Ratio (1.1-1.8) Free T4 (0.78-2.19) ng/dL Thyroxine (T4) (5.5-11.0) ug/dL TSH 3rd Generation (0.46-4.68) mIU/mL Random Vancomycin (20.0-40.0) ug/mL 10/17/17 10/17/17 10/17/17 Range/Units 07:30 06:59 06:05 WBC (4.5-11.0) 10^3/ul RBC (3.5-6.1) 10^6/uL Hgb (14.0-18.0) g/dL Hct (42.0-52.0) % MCV (80.0-105.0) fl MCH (25.0-35.0) pg MCHC (31.0-37.0) g/dl RDW (11.5-14.5) % Plt Count (120.0-450.0) 10^3/uL MPV (7.0-11.0) fl pCO2 (35-45) mm/Hg pO2 (80-100) mm/Hg HCO3 (21-28) mmol/L ABG pH (7.35-7.45) ABG Total CO2 (22-28) mmol.L ABG O2 Saturation (95-98) % ABG O2 Content (15-23) ML/dl ABG Base Excess (-2.0-3.0) mmol/L ABG Hemoglobin (11.7-17.4) g/dL ABG Carboxyhemoglobin (0.5-1.5) % POC ABG HHb (Measured) (0-5) % ABG Methemoglobin (0.0-3.0) % ABG O2 Capacity (16-24) mL/dl Hgb O2 Saturation (95.0-98.0) % FiO2 % Sodium (132-148) mmol/L Potassium (3.6-5.0) mmol/L Chloride (98-107) mmol/L Carbon Dioxide (21-33) mmol/L Anion Gap (10-20) BUN (7-21) mg/dL Creatinine (0.8-1.5) mg/dl Est GFR ( Amer) Est GFR (Non-Af Amer) POC Glucose (mg/dL) 159 H 137 H (65-110) mg/dL Random Glucose (70-110) mg/dL Hemoglobin A1c (4.2-6.5) % Calcium (8.4-10.5) mg/dL Total Bilirubin (0.2-1.3) mg/dL AST (17-59) U/L ALT (7-56) U/L Alkaline Phosphatase (38-126) U/L Total Protein (5.8-8.3) g/dL Albumin (3.0-4.8) g/dL Globulin gm/dL Albumin/Globulin Ratio (1.1-1.8) Free T4 (0.78-2.19) ng/dL Thyroxine (T4) (5.5-11.0) ug/dL TSH 3rd Generation (0.46-4.68) mIU/mL Random Vancomycin 18.0 L (20.0-40.0) ug/mL 10/17/17 10/17/17 10/17/17 Range/Units 05:30 05:30 05:20 WBC (4.5-11.0) 10^3/ul RBC (3.5-6.1) 10^6/uL Hgb (14.0-18.0) g/dL Hct (42.0-52.0) % MCV (80.0-105.0) fl MCH (25.0-35.0) pg MCHC (31.0-37.0) g/dl RDW (11.5-14.5) % Plt Count (120.0-450.0) 10^3/uL MPV (7.0-11.0) fl pCO2 (35-45) mm/Hg pO2 (80-100) mm/Hg HCO3 (21-28) mmol/L ABG pH (7.35-7.45) ABG Total CO2 (22-28) mmol.L ABG O2 Saturation (95-98) % ABG O2 Content (15-23) ML/dl ABG Base Excess (-2.0-3.0) mmol/L ABG Hemoglobin (11.7-17.4) g/dL ABG Carboxyhemoglobin (0.5-1.5) % POC ABG HHb (Measured) (0-5) % ABG Methemoglobin (0.0-3.0) % ABG O2 Capacity (16-24) mL/dl Hgb O2 Saturation (95.0-98.0) % FiO2 % Sodium 153 H (132-148) mmol/L Potassium 3.8 (3.6-5.0) mmol/L Chloride 112 H (98-107) mmol/L Carbon Dioxide 30 (21-33) mmol/L Anion Gap 16 (10-20) BUN 65 H (7-21) mg/dL Creatinine 2.4 H (0.8-1.5) mg/dl Est GFR ( Amer) 32 Est GFR (Non-Af Amer) 27 POC Glucose (mg/dL) 106 (65-110) mg/dL Random Glucose 173 H (70-110) mg/dL Hemoglobin A1c (4.2-6.5) % Calcium 7.9 L (8.4-10.5) mg/dL Total Bilirubin 0.8 (0.2-1.3) mg/dL AST 93 H D (17-59) U/L ALT 62 H (7-56) U/L Alkaline Phosphatase 93 (38-126) U/L Total Protein 6.5 (5.8-8.3) g/dL Albumin 2.9 L (3.0-4.8) g/dL Globulin 3.7 gm/dL Albumin/Globulin Ratio 0.8 L (1.1-1.8) Free T4 0.62 L (0.78-2.19) ng/dL Thyroxine (T4) 3.6 L (5.5-11.0) ug/dL TSH 3rd Generation 0.62 (0.46-4.68) mIU/mL Random Vancomycin (20.0-40.0) ug/mL 10/17/17 10/17/17 10/17/17 Range/Units 04:09 03:27 02:28 WBC (4.5-11.0) 10^3/ul RBC (3.5-6.1) 10^6/uL Hgb (14.0-18.0) g/dL Hct (42.0-52.0) % MCV (80.0-105.0) fl MCH (25.0-35.0) pg MCHC (31.0-37.0) g/dl RDW (11.5-14.5) % Plt Count (120.0-450.0) 10^3/uL MPV (7.0-11.0) fl pCO2 (35-45) mm/Hg pO2 (80-100) mm/Hg HCO3 (21-28) mmol/L ABG pH (7.35-7.45) ABG Total CO2 (22-28) mmol.L ABG O2 Saturation (95-98) % ABG O2 Content (15-23) ML/dl ABG Base Excess (-2.0-3.0) mmol/L ABG Hemoglobin (11.7-17.4) g/dL ABG Carboxyhemoglobin (0.5-1.5) % POC ABG HHb (Measured) (0-5) % ABG Methemoglobin (0.0-3.0) % ABG O2 Capacity (16-24) mL/dl Hgb O2 Saturation (95.0-98.0) % FiO2 % Sodium (132-148) mmol/L Potassium (3.6-5.0) mmol/L Chloride (98-107) mmol/L Carbon Dioxide (21-33) mmol/L Anion Gap (10-20) BUN (7-21) mg/dL Creatinine (0.8-1.5) mg/dl Est GFR ( Amer) Est GFR (Non-Af Amer) POC Glucose (mg/dL) 135 H 119 H 122 H (65-110) mg/dL Random Glucose (70-110) mg/dL Hemoglobin A1c (4.2-6.5) % Calcium (8.4-10.5) mg/dL Total Bilirubin (0.2-1.3) mg/dL AST (17-59) U/L ALT (7-56) U/L Alkaline Phosphatase (38-126) U/L Total Protein (5.8-8.3) g/dL Albumin (3.0-4.8) g/dL Globulin gm/dL Albumin/Globulin Ratio (1.1-1.8) Free T4 (0.78-2.19) ng/dL Thyroxine (T4) (5.5-11.0) ug/dL TSH 3rd Generation (0.46-4.68) mIU/mL Random Vancomycin (20.0-40.0) ug/mL 10/17/17 10/17/17 10/16/17 Range/Units 01:30 00:08 22:51 WBC (4.5-11.0) 10^3/ul RBC (3.5-6.1) 10^6/uL Hgb (14.0-18.0) g/dL Hct (42.0-52.0) % MCV (80.0-105.0) fl MCH (25.0-35.0) pg MCHC (31.0-37.0) g/dl RDW (11.5-14.5) % Plt Count (120.0-450.0) 10^3/uL MPV (7.0-11.0) fl pCO2 (35-45) mm/Hg pO2 (80-100) mm/Hg HCO3 (21-28) mmol/L ABG pH (7.35-7.45) ABG Total CO2 (22-28) mmol.L ABG O2 Saturation (95-98) % ABG O2 Content (15-23) ML/dl ABG Base Excess (-2.0-3.0) mmol/L ABG Hemoglobin (11.7-17.4) g/dL ABG Carboxyhemoglobin (0.5-1.5) % POC ABG HHb (Measured) (0-5) % ABG Methemoglobin (0.0-3.0) % ABG O2 Capacity (16-24) mL/dl Hgb O2 Saturation (95.0-98.0) % FiO2 % Sodium (132-148) mmol/L Potassium (3.6-5.0) mmol/L Chloride (98-107) mmol/L Carbon Dioxide (21-33) mmol/L Anion Gap (10-20) BUN (7-21) mg/dL Creatinine (0.8-1.5) mg/dl Est GFR ( Amer) Est GFR (Non-Af Amer) POC Glucose (mg/dL) 118 H 138 H 151 H (65-110) mg/dL Random Glucose (70-110) mg/dL Hemoglobin A1c (4.2-6.5) % Calcium (8.4-10.5) mg/dL Total Bilirubin (0.2-1.3) mg/dL AST (17-59) U/L ALT (7-56) U/L Alkaline Phosphatase (38-126) U/L Total Protein (5.8-8.3) g/dL Albumin (3.0-4.8) g/dL Globulin gm/dL Albumin/Globulin Ratio (1.1-1.8) Free T4 (0.78-2.19) ng/dL Thyroxine (T4) (5.5-11.0) ug/dL TSH 3rd Generation (0.46-4.68) mIU/mL Random Vancomycin (20.0-40.0) ug/mL 10/16/17 10/16/17 10/16/17 Range/Units 22:07 21:02 20:15 WBC (4.5-11.0) 10^3/ul RBC (3.5-6.1) 10^6/uL Hgb (14.0-18.0) g/dL Hct (42.0-52.0) % MCV (80.0-105.0) fl MCH (25.0-35.0) pg MCHC (31.0-37.0) g/dl RDW (11.5-14.5) % Plt Count (120.0-450.0) 10^3/uL MPV (7.0-11.0) fl pCO2 (35-45) mm/Hg pO2 (80-100) mm/Hg HCO3 (21-28) mmol/L ABG pH (7.35-7.45) ABG Total CO2 (22-28) mmol.L ABG O2 Saturation (95-98) % ABG O2 Content (15-23) ML/dl ABG Base Excess (-2.0-3.0) mmol/L ABG Hemoglobin (11.7-17.4) g/dL ABG Carboxyhemoglobin (0.5-1.5) % POC ABG HHb (Measured) (0-5) % ABG Methemoglobin (0.0-3.0) % ABG O2 Capacity (16-24) mL/dl Hgb O2 Saturation (95.0-98.0) % FiO2 % Sodium (132-148) mmol/L Potassium (3.6-5.0) mmol/L Chloride (98-107) mmol/L Carbon Dioxide (21-33) mmol/L Anion Gap (10-20) BUN (7-21) mg/dL Creatinine (0.8-1.5) mg/dl Est GFR ( Amer) Est GFR (Non-Af Amer) POC Glucose (mg/dL) 147 H 207 H 219 H (65-110) mg/dL Random Glucose (70-110) mg/dL Hemoglobin A1c (4.2-6.5) % Calcium (8.4-10.5) mg/dL Total Bilirubin (0.2-1.3) mg/dL AST (17-59) U/L ALT (7-56) U/L Alkaline Phosphatase (38-126) U/L Total Protein (5.8-8.3) g/dL Albumin (3.0-4.8) g/dL Globulin gm/dL Albumin/Globulin Ratio (1.1-1.8) Free T4 (0.78-2.19) ng/dL Thyroxine (T4) (5.5-11.0) ug/dL TSH 3rd Generation (0.46-4.68) mIU/mL Random Vancomycin (20.0-40.0) ug/mL 10/16/17 10/16/17 10/16/17 Range/Units 19:06 18:28 17:24 WBC (4.5-11.0) 10^3/ul RBC (3.5-6.1) 10^6/uL Hgb (14.0-18.0) g/dL Hct (42.0-52.0) % MCV (80.0-105.0) fl MCH (25.0-35.0) pg MCHC (31.0-37.0) g/dl RDW (11.5-14.5) % Plt Count (120.0-450.0) 10^3/uL MPV (7.0-11.0) fl pCO2 (35-45) mm/Hg pO2 (80-100) mm/Hg HCO3 (21-28) mmol/L ABG pH (7.35-7.45) ABG Total CO2 (22-28) mmol.L ABG O2 Saturation (95-98) % ABG O2 Content (15-23) ML/dl ABG Base Excess (-2.0-3.0) mmol/L ABG Hemoglobin (11.7-17.4) g/dL ABG Carboxyhemoglobin (0.5-1.5) % POC ABG HHb (Measured) (0-5) % ABG Methemoglobin (0.0-3.0) % ABG O2 Capacity (16-24) mL/dl Hgb O2 Saturation (95.0-98.0) % FiO2 % Sodium (132-148) mmol/L Potassium (3.6-5.0) mmol/L Chloride (98-107) mmol/L Carbon Dioxide (21-33) mmol/L Anion Gap (10-20) BUN (7-21) mg/dL Creatinine (0.8-1.5) mg/dl Est GFR ( Amer) Est GFR (Non-Af Amer) POC Glucose (mg/dL) 259 H 298 H 280 H (65-110) mg/dL Random Glucose (70-110) mg/dL Hemoglobin A1c (4.2-6.5) % Calcium (8.4-10.5) mg/dL Total Bilirubin (0.2-1.3) mg/dL AST (17-59) U/L ALT (7-56) U/L Alkaline Phosphatase (38-126) U/L Total Protein (5.8-8.3) g/dL Albumin (3.0-4.8) g/dL Globulin gm/dL Albumin/Globulin Ratio (1.1-1.8) Free T4 (0.78-2.19) ng/dL Thyroxine (T4) (5.5-11.0) ug/dL TSH 3rd Generation (0.46-4.68) mIU/mL Random Vancomycin (20.0-40.0) ug/mL 10/16/17 10/16/17 10/16/17 Range/Units 16:33 14:18 13:54 WBC (4.5-11.0) 10^3/ul RBC (3.5-6.1) 10^6/uL Hgb (14.0-18.0) g/dL Hct (42.0-52.0) % MCV (80.0-105.0) fl MCH (25.0-35.0) pg MCHC (31.0-37.0) g/dl RDW (11.5-14.5) % Plt Count (120.0-450.0) 10^3/uL MPV (7.0-11.0) fl pCO2 (35-45) mm/Hg pO2 (80-100) mm/Hg HCO3 (21-28) mmol/L ABG pH (7.35-7.45) ABG Total CO2 (22-28) mmol.L ABG O2 Saturation (95-98) % ABG O2 Content (15-23) ML/dl ABG Base Excess (-2.0-3.0) mmol/L ABG Hemoglobin (11.7-17.4) g/dL ABG Carboxyhemoglobin (0.5-1.5) % POC ABG HHb (Measured) (0-5) % ABG Methemoglobin (0.0-3.0) % ABG O2 Capacity (16-24) mL/dl Hgb O2 Saturation (95.0-98.0) % FiO2 % Sodium (132-148) mmol/L Potassium (3.6-5.0) mmol/L Chloride (98-107) mmol/L Carbon Dioxide (21-33) mmol/L Anion Gap (10-20) BUN (7-21) mg/dL Creatinine (0.8-1.5) mg/dl Est GFR ( Amer) Est GFR (Non-Af Amer) POC Glucose (mg/dL) 310 H 422 H* 432 H* (65-110) mg/dL Random Glucose (70-110) mg/dL Hemoglobin A1c (4.2-6.5) % Calcium (8.4-10.5) mg/dL Total Bilirubin (0.2-1.3) mg/dL AST (17-59) U/L ALT (7-56) U/L Alkaline Phosphatase (38-126) U/L Total Protein (5.8-8.3) g/dL Albumin (3.0-4.8) g/dL Globulin gm/dL Albumin/Globulin Ratio (1.1-1.8) Free T4 (0.78-2.19) ng/dL Thyroxine (T4) (5.5-11.0) ug/dL TSH 3rd Generation (0.46-4.68) mIU/mL Random Vancomycin (20.0-40.0) ug/mL 10/16/17 10/16/17 Range/Units 13:07 07:40 WBC (4.5-11.0) 10^3/ul RBC (3.5-6.1) 10^6/uL Hgb (14.0-18.0) g/dL Hct (42.0-52.0) % MCV (80.0-105.0) fl MCH (25.0-35.0) pg MCHC (31.0-37.0) g/dl RDW (11.5-14.5) % Plt Count (120.0-450.0) 10^3/uL MPV (7.0-11.0) fl pCO2 (35-45) mm/Hg pO2 (80-100) mm/Hg HCO3 (21-28) mmol/L ABG pH (7.35-7.45) ABG Total CO2 (22-28) mmol.L ABG O2 Saturation (95-98) % ABG O2 Content (15-23) ML/dl ABG Base Excess (-2.0-3.0) mmol/L ABG Hemoglobin (11.7-17.4) g/dL ABG Carboxyhemoglobin (0.5-1.5) % POC ABG HHb (Measured) (0-5) % ABG Methemoglobin (0.0-3.0) % ABG O2 Capacity (16-24) mL/dl Hgb O2 Saturation (95.0-98.0) % FiO2 % Sodium (132-148) mmol/L Potassium (3.6-5.0) mmol/L Chloride (98-107) mmol/L Carbon Dioxide (21-33) mmol/L Anion Gap (10-20) BUN (7-21) mg/dL Creatinine (0.8-1.5) mg/dl Est GFR ( Amer) Est GFR (Non-Af Amer) POC Glucose (mg/dL) 445 H* (65-110) mg/dL Random Glucose (70-110) mg/dL Hemoglobin A1c 7.5 H (4.2-6.5) % Calcium (8.4-10.5) mg/dL Total Bilirubin (0.2-1.3) mg/dL AST (17-59) U/L ALT (7-56) U/L Alkaline Phosphatase (38-126) U/L Total Protein (5.8-8.3) g/dL Albumin (3.0-4.8) g/dL Globulin gm/dL Albumin/Globulin Ratio (1.1-1.8) Free T4 (0.78-2.19) ng/dL Thyroxine (T4) (5.5-11.0) ug/dL TSH 3rd Generation (0.46-4.68) mIU/mL Random Vancomycin (20.0-40.0) ug/mL Laboratory Results - last 24 hr 10/16/17 10/16/17 10/16/17 07:40 13:07 13:54 WBC RBC Hgb Hct MCV MCH MCHC RDW Plt Count MPV pCO2 pO2 HCO3 ABG pH ABG Total CO2 ABG O2 Saturation ABG O2 Content ABG Base Excess ABG Hemoglobin ABG Carboxyhemoglobin POC ABG HHb (Measured) ABG Methemoglobin ABG O2 Capacity Hgb O2 Saturation FiO2 Sodium Potassium Chloride Carbon Dioxide Anion Gap BUN Creatinine Est GFR ( Amer) Est GFR (Non-Af Amer) POC Glucose (mg/dL) 445 H* 432 H* Random Glucose Hemoglobin A1c 7.5 H Calcium Total Bilirubin AST ALT Alkaline Phosphatase Total Protein Albumin Globulin Albumin/Globulin Ratio Free T4 Thyroxine (T4) TSH 3rd Generation Random Vancomycin 10/16/17 10/16/17 10/16/17 14:18 16:33 17:24 WBC RBC Hgb Hct MCV MCH MCHC RDW Plt Count MPV pCO2 pO2 HCO3 ABG pH ABG Total CO2 ABG O2 Saturation ABG O2 Content ABG Base Excess ABG Hemoglobin ABG Carboxyhemoglobin POC ABG HHb (Measured) ABG Methemoglobin ABG O2 Capacity Hgb O2 Saturation FiO2 Sodium Potassium Chloride Carbon Dioxide Anion Gap BUN Creatinine Est GFR ( Amer) Est GFR (Non-Af Amer) POC Glucose (mg/dL) 422 H* 310 H 280 H Random Glucose Hemoglobin A1c Calcium Total Bilirubin AST ALT Alkaline Phosphatase Total Protein Albumin Globulin Albumin/Globulin Ratio Free T4 Thyroxine (T4) TSH 3rd Generation Random Vancomycin 10/16/17 10/16/17 10/16/17 18:28 19:06 20:15 WBC RBC Hgb Hct MCV MCH MCHC RDW Plt Count MPV pCO2 pO2 HCO3 ABG pH ABG Total CO2 ABG O2 Saturation ABG O2 Content ABG Base Excess ABG Hemoglobin ABG Carboxyhemoglobin POC ABG HHb (Measured) ABG Methemoglobin ABG O2 Capacity Hgb O2 Saturation FiO2 Sodium Potassium Chloride Carbon Dioxide Anion Gap BUN Creatinine Est GFR ( Amer) Est GFR (Non-Af Amer) POC Glucose (mg/dL) 298 H 259 H 219 H Random Glucose Hemoglobin A1c Calcium Total Bilirubin AST ALT Alkaline Phosphatase Total Protein Albumin Globulin Albumin/Globulin Ratio Free T4 Thyroxine (T4) TSH 3rd Generation Random Vancomycin 10/16/17 10/16/17 10/16/17 21:02 22:07 22:51 WBC RBC Hgb Hct MCV MCH MCHC RDW Plt Count MPV pCO2 pO2 HCO3 ABG pH ABG Total CO2 ABG O2 Saturation ABG O2 Content ABG Base Excess ABG Hemoglobin ABG Carboxyhemoglobin POC ABG HHb (Measured) ABG Methemoglobin ABG O2 Capacity Hgb O2 Saturation FiO2 Sodium Potassium Chloride Carbon Dioxide Anion Gap BUN Creatinine Est GFR ( Amer) Est GFR (Non-Af Amer) POC Glucose (mg/dL) 207 H 147 H 151 H Random Glucose Hemoglobin A1c Calcium Total Bilirubin AST ALT Alkaline Phosphatase Total Protein Albumin Globulin Albumin/Globulin Ratio Free T4 Thyroxine (T4) TSH 3rd Generation Random Vancomycin 10/17/17 10/17/17 10/17/17 00:08 01:30 02:28 WBC RBC Hgb Hct MCV MCH MCHC RDW Plt Count MPV pCO2 pO2 HCO3 ABG pH ABG Total CO2 ABG O2 Saturation ABG O2 Content ABG Base Excess ABG Hemoglobin ABG Carboxyhemoglobin POC ABG HHb (Measured) ABG Methemoglobin ABG O2 Capacity Hgb O2 Saturation FiO2 Sodium Potassium Chloride Carbon Dioxide Anion Gap BUN Creatinine Est GFR ( Amer) Est GFR (Non-Af Amer) POC Glucose (mg/dL) 138 H 118 H 122 H Random Glucose Hemoglobin A1c Calcium Total Bilirubin AST ALT Alkaline Phosphatase Total Protein Albumin Globulin Albumin/Globulin Ratio Free T4 Thyroxine (T4) TSH 3rd Generation Random Vancomycin 10/17/17 10/17/17 10/17/17 03:27 04:09 05:20 WBC RBC Hgb Hct MCV MCH MCHC RDW Plt Count MPV pCO2 pO2 HCO3 ABG pH ABG Total CO2 ABG O2 Saturation ABG O2 Content ABG Base Excess ABG Hemoglobin ABG Carboxyhemoglobin POC ABG HHb (Measured) ABG Methemoglobin ABG O2 Capacity Hgb O2 Saturation FiO2 Sodium Potassium Chloride Carbon Dioxide Anion Gap BUN Creatinine Est GFR ( Amer) Est GFR (Non-Af Amer) POC Glucose (mg/dL) 119 H 135 H 106 Random Glucose Hemoglobin A1c Calcium Total Bilirubin AST ALT Alkaline Phosphatase Total Protein Albumin Globulin Albumin/Globulin Ratio Free T4 Thyroxine (T4) TSH 3rd Generation Random Vancomycin 10/17/17 10/17/17 10/17/17 05:30 05:30 06:05 WBC RBC Hgb Hct MCV MCH MCHC RDW Plt Count MPV pCO2 pO2 HCO3 ABG pH ABG Total CO2 ABG O2 Saturation ABG O2 Content ABG Base Excess ABG Hemoglobin ABG Carboxyhemoglobin POC ABG HHb (Measured) ABG Methemoglobin ABG O2 Capacity Hgb O2 Saturation FiO2 Sodium 153 H Potassium 3.8 Chloride 112 H Carbon Dioxide 30 Anion Gap 16 BUN 65 H Creatinine 2.4 H Est GFR ( Amer) 32 Est GFR (Non-Af Amer) 27 POC Glucose (mg/dL) 137 H Random Glucose 173 H Hemoglobin A1c Calcium 7.9 L Total Bilirubin 0.8 AST 93 H D ALT 62 H Alkaline Phosphatase 93 Total Protein 6.5 Albumin 2.9 L Globulin 3.7 Albumin/Globulin Ratio 0.8 L Free T4 0.62 L Thyroxine (T4) 3.6 L TSH 3rd Generation 0.62 Random Vancomycin 10/17/17 10/17/17 10/17/17 06:59 07:30 08:12 WBC RBC Hgb Hct MCV MCH MCHC RDW Plt Count MPV pCO2 pO2 HCO3 ABG pH ABG Total CO2 ABG O2 Saturation ABG O2 Content ABG Base Excess ABG Hemoglobin ABG Carboxyhemoglobin POC ABG HHb (Measured) ABG Methemoglobin ABG O2 Capacity Hgb O2 Saturation FiO2 Sodium Potassium Chloride Carbon Dioxide Anion Gap BUN Creatinine Est GFR ( Amer) Est GFR (Non-Af Amer) POC Glucose (mg/dL) 159 H 195 H Random Glucose Hemoglobin A1c Calcium Total Bilirubin AST ALT Alkaline Phosphatase Total Protein Albumin Globulin Albumin/Globulin Ratio Free T4 Thyroxine (T4) TSH 3rd Generation Random Vancomycin 18.0 L 10/17/17 10/17/17 08:40 08:46 WBC 9.4 D RBC 3.86 Hgb 13.0 L Hct 39.4 L MCV 102.1 MCH 33.7 MCHC 33.0 RDW 15.2 H Plt Count 154 MPV 12.3 H pCO2 36 pO2 60.0 L HCO3 25.6 ABG pH 7.46 H ABG Total CO2 26.7 ABG O2 Saturation 94.1 L ABG O2 Content 20.3 ABG Base Excess 2.0 ABG Hemoglobin 15.8 ABG Carboxyhemoglobin 1.7 H POC ABG HHb (Measured) 5.7 H ABG Methemoglobin 0.9 ABG O2 Capacity 21.6 Hgb O2 Saturation 91.7 L FiO2 44.0 Sodium Potassium Chloride Carbon Dioxide Anion Gap BUN Creatinine Est GFR ( Amer) Est GFR (Non-Af Amer) POC Glucose (mg/dL) Random Glucose Hemoglobin A1c Calcium Total Bilirubin AST ALT Alkaline Phosphatase Total Protein Albumin Globulin Albumin/Globulin Ratio Free T4 Thyroxine (T4) TSH 3rd Generation Random Vancomycin EKG/Cardiology Studies: Cardiology / EKG Studies 10/17/17 07:00 ELECTROCARDIOGRAM Routine Comment: Reason For Exam: PAF PRE OP:: N Does Patient Have a Pacemaker?: No Critical Care Progress Note - Nutrition Nutrition: Nutrition Category Date Time Status Dysphagia/Modified Consistency Diet [DIET] Diets 10/13/17 Dinner Ordered Attending/Attestation - Attestation I have personally seen and examined this patient.: Yes I have fully participated in the care of the patient.: Yes I have reviewed all pertinent clinical information: Yes Notes (Text): 10/17/17 12:35 severe sepsis resolved, FABRICIO improved, no signs of encephalopathy, HR controlled , BP stable, respiratory rangel stable. CXR-->RLL: likely lag behind clinical improvement-->recommend CXR in 1 month. Ok to downgrade to tele ccm time 40 min
[2017-10-17 07:36] LABS: ALB/GLOB RATIO 0.8 (1.1-1.8); ALBUMIN 2.9 g/dL (3.0-4.8); CALCIUM 7.9 mg/dL (8.4-10.5)
[2017-10-17 07:37] LABS: FREE T4 0.62 ng/dL (0.78-2.19); T4 3.6 ug/dL (5.5-11.0)
[2017-10-17] MEDS: Budesonide 0.5 mg/2 ml Inhal Susp UD IH SCH ×2 (08:17→20:58)
--- NOTE | 2017-10-17 08:23 | RAD ---
HISTORY: f/u COMPARISON: Portable chest 10/16/2017. FINDINGS: LUNGS: Heterogeneous infiltrate is unchanged at the mid to inferior right lung zone once again with limited linear atelectasis identified in the inferior left lung zone laterally. No left-sided infiltrate. PLEURA: No significant pleural effusion identified, no pneumothorax apparent. CARDIOVASCULAR: Cardiac size appears stable. No pulmonary vascular derangement appreciable. OSSEOUS STRUCTURES: No significant abnormalities. VISUALIZED UPPER ABDOMEN: Normal. OTHER FINDINGS: None. IMPRESSION: Stable examination including heterogeneous infiltrate at the mid to inferior right lung zone.
[2017-10-17 08:51] LABS: ARTERIAL BLOOD GAS HCO3 25.6 mmol/L (21-28); ARTERIAL BLOOD GAS HEMOGLOBIN 15.8 g/dL (11.7-17.4); ARTERIAL BLOOD GAS O2 CAPACITY 21.6 mL/dl (16-24); ARTERIAL BLOOD GAS O2 CONTENT 20.3 ML/dl (15-23); ARTERIAL BLOOD GAS O2 SAT 94.1 % (95-98); ARTERIAL BLOOD GAS PCO2 36 mm/Hg (35-45); ARTERIAL BLOOD GAS PH 7.46 (7.35-7.45); ARTERIAL BLOOD GAS TCO2 26.7 mmol.L (22-28)
[2017-10-17 08:54] LABS: MEAN CELL VOLUME 102.1 fl (80.0-105.0); MEAN CORPUSCULAR HEMOGLOBIN 33.7 pg (25.0-35.0); MEAN PLATELET VOLUME 12.3 fl (7.0-11.0); RBC 3.86 10^6/uL (3.5-6.1); RED CELL DISTRIBUTION WIDTH 15.2 % (11.5-14.5); WHITE BLOOD COUNT 9.4 10^3/ul (4.5-11.0)
[2017-10-17] MEDS: Insulin Reg-MEDIUM-Coverage SC SCH ×2 (09:32→12:13)
[2017-10-17] MEDS: Pantoprazole 40 mg Susp UD PO SCH (09:33)
--- NOTE | 2017-10-17 09:51 | CARD ---
APPROVED REPORT EKG Measurement Heart [id number] <Conclusion> Sinus bradycardia NSSTW changes Small q waves 2,3,F, possible IMI, age unknown Prolonged QT
--- NOTE | 2017-10-17 10:07 | PN ---
DATE: 10/17/2017(720am--810am) PULMONARY NOTE SUBJECTIVE: The patient appears comfortable this morning. He is not short of breath at rest. PHYSICAL EXAMINATION: VITAL SIGNS: Temperature is 97.0, pulse 52, respirations 18, blood pressure 150/65. Oxygen saturation on nasal cannula is 100%. HEENT: Normocephalic, atraumatic. No JVD. CARDIOVASCULAR: Systolic ejection murmur at the lower left sternal border. No S3 gallop. LUNGS: Decreased breath sounds at the bases with crackles. Less rhonchi. Less wheezing. EXTREMITIES: Positive for edema. No cyanosis. No clubbing. Calves are nontender to palpation. GI: Abdomen is soft, nontender and nondistended. Bowel sounds are positive. SKIN: No acute rash. NEUROLOGIC: Limited at the present time. PERTINENT LABORATORY DATA: Chest x-ray was done this morning and reviewed. There is definite improvement - with a decrease in the right lower lobe infiltrates. Arterial blood gas was ordered - not done yet. IMPRESSION: 1. Status post respiratory failure. 2. Right lower lobe pneumonia. 3. Chronic obstructive pulmonary disease. 4. Acute bronchospasm. 5. Cardiac arrhythmias. PLAN: The patient appears very comfortable this morning. He is not short of breath at rest. He does remain very weak appearing. He is currently on nasal cannula. I did discuss the case with the night nurse at length. The night nurse stated the patient had a very good night. I did review the chest x-ray as above. There is definite improvement-- with a decrease in the right lower lobe infiltrates. As above, I did order an arterial blood gas. I am awaiting the arterial blood gas to be done. I will be called with those results. On physical exam, there is less bronchospasm noted. I will continue with the current nebulizer treatments and intravenous steroids for now. The patient remains on antibiotic therapy - as per infectious disease. Temperatures have resolved. The leukocytosis is resolving. Input by cardiology is also noted. The patient is currently on Eliquis. The patient's clinical status is significantly improved. However, he does remain somewhat guarded. I will discuss the above with the entire ICU team in the next few moments. I will also discuss the above with Dr. Ramon. Umair Kauffman MD [facility]
[2017-10-17] MEDS: MethylPREDNISolone 40 mg Vial IVP SCH ×2 (10:26→22:31)
[2017-10-17] MEDS: Cefepime 1gm in NS 100ml 1 GM/100 ML BAG IVPB SCH ×2 (10:27→22:26)
[2017-10-17] MEDS: Vancomycin 1gm in NS 250ml 1 GM/250 ML BAG IVPB SCH (10:27)
--- NOTE | 2017-10-17 13:11 | PN ---
DATE: 10/17/2017 REASON FOR CONSULTATION AND FOLLOWUP: AFib with rapid ventricular rate associated with respiratory failure, status post extubated. SUBJECTIVE: The patient denies any chest pain, shortness of breath, or any palpitations. OBJECTIVE: GENERAL: Not in apparent distress. VITAL SIGNS: Temperature afebrile, heart rate 52, blood pressure 150/65. HEENT: PERRLA, intact. NECK: Supple. No carotid bruits or thyromegaly. CHEST: Clear to auscultation. HEART: S1 and S2, regular. ABDOMEN: Soft. EXTREMITIES: Clubbing and cyanosis negative. LABORATORY DATA: Blood workup as follows: WBC 9.2, hemoglobin 13, hematocrit 39.4, platelet count 154. Chemistry shows sodium 153, potassium 3.8, chloride 112, carbon dioxide 20, anion gap of 16. BUN 65, creatinine 2.4. IMPRESSION: Acute kidney injury, chronic renal insufficiency; paroxysmal atrial fibrillation; respiratory failure; chronic obstructive pulmonary disease, intubated and successfully extubated; history of coronary artery disease, details unknown; hypertension; hyperlipidemia; traumatic history of brain injury; history of fall, multiple times. The patient converted to normal sinus from atrial fibrillation, responded to IV Cardizem. Now, the patient is on verapamil, since then the patient is in normal sinus. Recent echo shows ejection fraction 55% with calculated right ventricular systolic pressure 23 mmHg, no mitral regurgitation, no tricuspid regurgitation. I discussed about coronary artery disease as mentioned in the chart, the patient does not know the details and aware of it. RECOMMENDATIONS: Continue Eliquis, dose adjusted, because of the renal insufficiency and age, 2.5 b.i.d. Continue Verapamil 40 p.o. t.i.d. Continue low dose Tenormin treat for COPD. We will follow with you. Thank you, Dr. Ramon, for providing us the opportunity in taking care of the patient. Josue Foster MD
--- NOTE | 2017-10-17 16:16 | PN ---
DATE: 10/17/2017 SUBJECTIVE: The patient is seen and examined at bedside. He is comfortable. He talks in full sentences. He is not in respiratory or otherwise distress. He ate his breakfast, which he enjoyed. PHYSICAL EXAMINATION: VITAL SIGNS: Heart rate 77, oxygen saturation 93% on 2 liters nasal cannula, respiratory rate 16, blood pressure 144/53. GENERAL: The patient is comfortable, lying in the bed and watching TV. HEENT: Head and neck atraumatic. LUNGS: Few wheezes bilaterally. HEART: Regular rate and rhythm. S1, S2 normal. ABDOMEN: Soft, nontender, nondistended, obese. MUSCULOSKELETAL: Trace bilateral pedal and ankle edema. NEUROLOGIC: The patient moves all extremities spontaneously. SKIN: Moist. PSYCHIATRIC: The patient is alert and oriented x3. LABORATORY DATA: WBC 9.4, hemoglobin 13, platelet count 154. Sodium 153, potassium 3.8, chloride 112, carbon dioxide 30, BUN 65, creatinine 2.4, glucose 159. AST 93, ALT 62, bilirubin 0.8. Influenza negative. Legionella and streptococcal antigens are negative. MEDICATIONS: Normal saline at 60 mL/hour, DuoNeb p.r.n., Eliquis, atenolol, Pulmicort, Levemir 20 units subcutaneous at bedtime, regular insulin sliding scale, Xopenex every 6 hours, cefepime, Solu-Medrol 20 mg IV q. 12, Protonix, vancomycin, verapamil p.r.n. and on standing basis 40 mg p.o. t.i.d. ASSESSMENT AND PLAN: This is 72-year-old gentleman who has recovered from severe sepsis with multiorgan system failure due to severe community-acquired pneumonia. The patient is extubated. He is hemodynamically and respiratory rangel stable. His creatinine is trending down and he is making good urine. He is alert, awake. He is comfortable. He tolerates oral nutrition. He is afebrile and does not have leukocytosis at present time. His heart rate is controlled. He is on therapeutic anticoagulation with Eliquis for paroxysmal intermittent atrial fibrillation. We will continue with GI prophylaxis. Okay to transfer the patient to telemetry. ccm time 40 min Duncan Litinski, MD [facility]
[2017-10-17] MEDS: Insulin Lispro (humaLOG) LOW Coverage SC SCH (16:30)
[2017-10-17] MEDS ORDERED: Insulin Lispro 1 UNITS/0.01 ML SC SCH (16:30)
--- NOTE | 2017-10-17 16:56 | CP.PCM.PN ---
Subjective - Date & Time of Evaluation Date of Evaluation: 10/17/17 Time of Evaluation: 15:30 - Subjective Subjective: Infectious Disease Follow Up: October 17, 2017 72 yo male presenting with SOB and respiratory distress at home. When entering through the ER, the patient was started on BiPAP and given Lasix. 15 minutes afterwards, the patient had worsening SOB and required intubation. Influenza testing was negative. Multiple electrolyte abnormalities especially hyponatremia and elevated creatinine. Patient is acidotic as well. Most of the information taken from the patient's chart. As the patient is intubated and ventilated now, unable to ask the patient any additional questions. The patient has no recent previous hospitalizations (last hospitalization in 2012). Procalcitonin up to 18.11. Extubated yesterday and appears to be doing well. Off BiPAP. WBC has dropped dramatically to 12.9. Most of his electrolyte abnormalities have improved. However, creatinine still remains high. Urine cultures showing gram negative elan identified as Proteus. Sensitive to Cefepime. Currently on Cefepime and Vancomycin. Creatinine slowly improving. Overall improving. Tachycardia improved. Patient is more awake and alert. Difficulty weaning from BiPAP. Verapamil added given difficulty in controlling heart rate. On the whole, the patient is improved compared to admission. Utilized BiPAP all night last night. Objective - Vital Signs/Intake and Output Vital Signs (last 24 hours): Temp Pulse Resp BP Pulse Ox 97.0 F L 73 24 141/66 75 L 10/16/17 21:30 10/17/17 16:29 10/17/17 16:29 10/17/17 16:30 10/17/17 16:29 Intake and Output: 10/17/17 10/17/17 06:59 18:59 Intake Total 895 Output Total 300 Balance 595 - Medications Medications: Current Medications Albuterol Sulfate (Albuterol 0.083% Inhal Lydia (2.5 Mg/3 Ml) Ud) 2.5 mg IH Q2H PRN PRN Reason: Shortness of Breath Apixaban (Eliquis) 2.5 mg PO BID [facility] PRN Reason: Protocol Last Admin: 10/17/17 10:26 Dose: 2.5 mg Artificial Tears (Artificial Tears) 0 ml OU BID [facility] Atenolol (Tenormin) 25 mg PO DAILY [facility] Last Admin: 10/17/17 10:26 Dose: 25 mg Budesonide (Pulmicort Respules) 0.5 mg IH [id number] [facility] Last Admin: 10/17/17 08:17 Dose: 0.5 mg Cefepime HCl (Maxipime 1gm) 1 gm in 100 mls @ 100 mls/hr IVPB Q12 [facility]ORIA PRN Reason: Protocol Last Admin: 10/17/17 10:27 Dose: 100 mls/hr Vancomycin HCl (Vancomycin 1gm) 1 gm in 250 mls @ 167 mls/hr IVPB DAILY [facility] PRN Reason: Protocol Last Admin: 10/17/17 10:27 Dose: 167 mls/hr Sodium Chloride (Sodium Chloride 0.45%) 1,000 mls @ 60 mls/hr IV .[id number] [facility] Last Admin: 10/16/17 09:20 Dose: 60 mls/hr Insulin Detemir (Levemir) 20 unit SC HS [facility] Last Admin: 10/17/17 07:49 Dose: 20 unit Insulin Human Lispro (Humalog Low) 0 units SC ACHS [facility] PRN Reason: Protocol Last Admin: 10/17/17 16:30 Dose: 3 units Insulin Human Lispro (Humalog) 4 units SC AC [facility] Last Admin: 10/17/17 16:31 Dose: 4 units Levalbuterol HCl (Xopenex) 1.25 mg IH [id number] [facility] Last Admin: 10/17/17 13:51 Dose: 1.25 mg Methylprednisolone (Solu-Medrol) 20 mg IVP Q12 [facility] Last Admin: 10/17/17 10:26 Dose: 20 mg Pantoprazole Sodium (Protonix Susp) 40 mg PO 0600 [facility] Last Admin: 10/17/17 09:33 Dose: 40 mg Verapamil HCl (Verapamil Inj) 2.5 mg IVP Q4H PRN PRN Reason: For heart rate >130 Last Admin: 10/16/17 09:07 Dose: 2.5 mg Verapamil HCl (Calan Tab) 40 mg PO TID [facility] Last Admin: 10/17/17 14:34 Dose: 40 mg - Labs Labs: 10/17/17 08:46 10/17/17 05:30 PT 17.1 SECONDS (9.4-12.5) H 10/11/17 14:50 INR 1.49 (0.93-1.08) H 10/11/17 14:50 APTT 66.1 Seconds (25.1-36.5) H 10/16/17 07:40 - Constitutional Appears: Non-toxic, No Acute Distress, Chronically Ill - Head Exam Head Exam: ATRAUMATIC, NORMOCEPHALIC - Eye Exam Eye Exam: EOMI, PERRL Pupil Exam: NORMAL ACCOMODATION, PERRL - ENT Exam ENT Exam: Mucous Membranes Moist, Normal External Ear Exam, TM's Normal Bilaterally - Neck Exam Neck Exam: Full ROM, Normal Inspection - Respiratory Exam Respiratory Exam: Decreased Breath Sounds, Wheezes, NORMAL BREATHING PATTERN. absent: Rales, Rhonchi - Cardiovascular Exam Cardiovascular Exam: REGULAR RHYTHM, RRR, +S1, +S2 - GI/Abdominal Exam GI & Abdominal Exam: Soft, Normal Bowel Sounds. absent: Distended, Tenderness - Extremities Exam Extremities Exam: Full ROM, Normal Inspection - Neurological Exam Neurological Exam: Alert, Awake, CN II-XII Intact, Oriented x3 - Psychiatric Exam Psychiatric exam: Normal Affect, Normal Mood - Skin Skin Exam: Intact, Normal Color Assessment and Plan - Assessment and Plan (Free Text) Assessment: 72 yo male with respiratory distress at home. Presented with SOB and required intubation and ventilation once in the [facility] ER. Patient with significant leukocytosis and borderline fevers here at [facility]. Procalcitonin sent. On Cefepime, Vancomycin IV, and Azithromycin. Started on Tamiflu. CT scan showing RML/RLL consolidation/infiltrates. Current antibiotic regimen is reasonable start point. Procalcitonin results of 18.11. Flynn cultures sent. Patient with lactic acidosis and electrolyte abnormalities. Hyponatremia. Acute renal failure with GFR less than 20 and creatinine of 4.1 on admission. Extubated yesterday. Improving. Pneumonia with RLL infiltrate on chest x-ray. Remains on Vancomycin IV, Azithromycin, and Cefepime for treatment. Most electrolyte abnormalities have normalized. Still elevated creatinine at 2.4. Urine cultures with gram negative rods identified as Proteus. On the whole improving rapidly. Back in NSR on Cardizem and Verapamil so far. Remains on BiPAP. Difficulty weaning from BiPAP. Thank you for allowing me to participate in the care of the patient, we will follow with you.
[2017-10-17] MEDS: Aritificial Tears (15ml) OU SCH (17:40)
--- NOTE | 2017-10-17 18:33 | PN ---
DATE: ENDOCRINOLOGY FOLLOWUP NOTE LOCATION: CCU 129, room 7. SUBJECTIVE: This is a 72-year-old male with recent uncontrolled type 2 insulin-requiring diabetes, now being followed closely for metabolic management. He also has ongoing IV antibiotics for management of concomitant pneumonia and has also been started on IV Solu-Medrol for intercurrent acute exacerbation of COPD as noted thereof. His glycemic levels are fluctuating, but improved and the latest glucose levels have ranged today from 137 to 159 and 195 mg/dL. His latest chemistry shows a BUN of 65, sodium 153, potassium 3.8, chloride 112, CO2 of 30, glucose 173, and creatinine 2.4. His thyroid study shows a TSH of 0.62 and a T4 of 3.6, indicative of the so-called acute sick euthyroid syndrome. ASSESSMENT: This is a 72-year-old male with uncontrolled and decompensated type 2 insulin-requiring diabetes, now being followed closely for metabolic management. PLAN: Plan of management as discussed with the patient and staff. We will continue the IV hydration as given and we will switch him over now to a more physiologic basal and bolus insulin drug combination as given. He has been started on a regular insulin given at the medium dose algorithm to be done a.c. and at bedtime as ordered. We will also continue the Levemir given as 20 units subcu at bedtime daily as given and we will titrate incrementally as indicated to optimize metabolic control. We will also hold off the Humalog given before each meal to observe his oral intake at this time and we will determine the need for the addition of Humalog to be given before meals as indicated. We will obtain serial chemistries and supplement accordingly as needed. We will follow this. Roxy Angeles MD
[2017-10-17] MEDS: Sodium Chloride 0.45% 1,000 ML IV SCH (22:27)
[2017-10-18] MEDS: Levalbuterol 1.25 MG/3 ML Inhal Soln UD IH SCH ×4 (02:07→20:31)
[2017-10-18 05:47] LABS: ARTERIAL BLOOD GAS HCO3 27.4 mmol/L (21-28); ARTERIAL BLOOD GAS HEMOGLOBIN 13.1 g/dL (11.7-17.4); ARTERIAL BLOOD GAS O2 CAPACITY 17.9 mL/dl (16-24); ARTERIAL BLOOD GAS O2 SAT 95.1 % (95-98); ARTERIAL BLOOD GAS PCO2 36 mm/Hg (35-45); ARTERIAL BLOOD GAS PH 7.49 (7.35-7.45); ARTERIAL BLOOD GAS TCO2 28.5 mmol.L (22-28)
[2017-10-18 07:15] LABS: BASO # 0.01 K/mm3 (0.0-2.0); BASO % 0.1 % (0.0-3.0); GRAN # 7.17 (1.4-6.5); GRAN % 89.9 % (50.0-68.0); HEMOGLOBIN 12.5 g/dL (14.0-18.0); LYMPH # 0.5 (1.2-3.4); LYMPH % 5.6 % (22.0-35.0); MEAN CELL VOLUME 101.3 fl (80.0-105.0); MEAN CORPUSCULAR HEMOGLOBIN 33.1 pg (25.0-35.0); MEAN CORPUSCULAR HGB CONC 32.6 g/dl (31.0-37.0); MEAN PLATELET VOLUME 12.4 fl (7.0-11.0); MONO # 0.4 (0.1-0.6); MONO % 4.4 % (1.0-6.0); RBC 3.78 10^6/uL (3.5-6.1)
[2017-10-18] MEDS: Budesonide 0.5 mg/2 ml Inhal Susp UD IH SCH ×2 (07:20→20:31)
[2017-10-18 07:55] LABS: ALB/GLOB RATIO 0.8 (1.1-1.8); ALBUMIN 2.8 g/dL (3.0-4.8); CALCIUM 7.5 mg/dL (8.4-10.5)
[2017-10-18] MEDS: Insulin Lispro (humaLOG) LOW Coverage SC SCH (08:00)
[2017-10-18] MEDS: Insulin Lispro 1 UNITS/0.01 ML SC SCH ×3 (08:16→16:36)
[2017-10-18] MEDS: Pantoprazole 40 mg Susp UD PO SCH (08:17)
--- NOTE | 2017-10-18 08:40 | RAD ---
HISTORY: f/u COMPARISON: Portable chest 10/17/2017. FINDINGS: LUNGS: Inspiratory volume is diminished. There is persistent infiltrate identified at the mid inferior right lung zone and minimally affects the mid right lung zone laterally once again. No significant interval change. No definite left-sided infiltrate. PLEURA: No significant pleural effusion identified, no pneumothorax apparent. CARDIOVASCULAR: The cardiomediastinal silhouette appears stable. OSSEOUS STRUCTURES: No significant abnormalities. VISUALIZED UPPER ABDOMEN: Normal. OTHER FINDINGS: None. IMPRESSION: No interval change in mid to inferior right pulmonary infiltrate. Diminished inspiratory volume.
--- NOTE | 2017-10-18 09:27 | PN ---
DATE: 10/18/2017(630am-720am) PULMONARY NOTE SUBJECTIVE: Patient appears comfortable this morning. He is not short of breath at rest. He remains very weak appearing. PHYSICAL EXAMINATION: VITAL SIGNS: Temperature 97.4, pulse 61, respirations 16, blood pressure 176/78. Oxygen saturation on nasal cannula is 93%. HEENT: Normocephalic, atraumatic. No JVD. CARDIOVASCULAR: Systolic ejection murmur at the lower left sternal border. No S3 gallop. LUNGS: Decreased breath sounds at the bases with crackles. Less rhonchi. No wheezing this morning. EXTREMITIES: Positive for edema. No cyanosis, no clubbing. Calves are nontender to palpation. GASTROINTESTINAL: Abdomen is soft, nontender and nondistended. Bowel sounds are positive. SKIN: No acute rash. NEUROLOGIC: Exam limited at the present time. PERTINENT LABORATORY DATA: Chest x-ray was done this morning and reviewed. On today's film, there remains an infiltrate at the right base. However, the infiltrate is much less in size - compared to a few days ago. Arterial blood gas was done on nasal cannula. Results are: PH 7.49, pCO2 of 36, pO2 of 61. IMPRESSION: 1. Status post respiratory failure. 2. Right lower lobe pneumonia. 3. Chronic obstructive pulmonary disease. 4. Acute bronchospasm. 5. Cardiac arrhythmias. PLAN: Patient appears comfortable this morning. He is not short of breath at rest. He does remain very weak appearing. He is currently on nasal cannula. I did discuss the case with the night nurse at length. The night nurse stated that the patient had a very good night. I did review the chest x-ray as above. There is a small right basilar infiltrate noted - certainly decreased from a few days ago. I have also reviewed the arterial blood gas. A significant alveolar-arterial gradient remains. On physical exam, the patient remains in mild bronchospasm. I will continue the current nebulizer treatments and low-dose intravenous steroids for now. Patient also remains on antibiotic therapy - as per Infectious Disease. The temperatures have fully resolved. The leukocytosis has also fully resolved. Inputs by Cardiology are also noted. The patient is significantly improved - compared to his initial presentation. However, he does remain guarded overall. I would like to see the patient out of bed as much as possible. I will discuss the above with the entire ICU team in the next few moments. I will discuss the above with the attending physician later today. Umair Kauffman MD [facility]
[2017-10-18] MEDS ORDERED: Oxycodone/Acetaminophen 5/325 mg Tab PO PRN (10:05)
[2017-10-18] MEDS: MethylPREDNISolone 40 mg Vial IVP SCH ×2 (10:07→21:37)
[2017-10-18] MEDS: Cefepime 1gm in NS 100ml 1 GM/100 ML BAG IVPB SCH ×2 (10:07→21:36)
[2017-10-18] MEDS: Aritificial Tears (15ml) OU SCH ×2 (10:09→17:42)
[2017-10-18] MEDS: Vancomycin 1gm in NS 250ml 1 GM/250 ML BAG IVPB SCH (10:43)
[2017-10-18] MEDS: Insulin Reg-MEDIUM-Coverage SC SCH ×3 (11:39→22:00)
[2017-10-18] MEDS: Sodium Chloride 0.45% 1,000 ML IV SCH ×2 (11:57→21:34)
[2017-10-18 12:10] LABS: HEPATITIS B SURFACE AG Negative (NEGATIVE)
[2017-10-18 12:16] LABS: HEPATITIS A IGM NEGATIVE (NEGATIVE); HEPATITIS B CORE AB NEGATIVE (NEGATIVE)
[2017-10-18 13:30] LABS: HEPATITIS C ANTIBODY NEGATIVE (NEGATIVE)
--- NOTE | 2017-10-18 13:46 | PN ---
DATE: REASON FOR CONSULTATION: AFib with rapid ventricular rate, history of respiratory failure, COPD exacerbation, status post extubated. SUBJECTIVE: Patient denies any chest pain, shortness of breath, or any palpitation. No further episode of arrhythmia noted. OBJECTIVE: GENERAL: Not in apparent distress. Awake and alert. VITAL SIGNS: Temperature afebrile, heart rate 61, blood pressure 175/84. HEENT: PERRLA, intact. NECK: Supple. No carotid bruits or thyromegaly. CHEST: Clear to auscultation. HEART: S1 and S2, regular. ABDOMEN: Soft. EXTREMITIES: Clubbing and cyanosis negative. LABORATORY DATA: Blood workup as follows: WBC 8, hemoglobin 12.5, hematocrit 38.5, and platelet count 137. Chemistry shows sodium 147, potassium 4.2, chloride 108, carbon dioxide 28, anion gap of 15. BUN 64, creatinine 2.2. IMPRESSION: Chronic kidney disease and acute kidney injury, diabetes, hypertension, hyperlipidemia, obesity, chronic obstructive pulmonary disease exacerbation, sepsis, respiratory failure, status post intubated and successfully extubated, atrial fibrillation with rapid ventricular rate, now rate is well controlled, bradycardic, on verapamil. Recent echo showed ejection fraction 55%, calculated right ventricular systolic pressure 23, no mitral regurgitation, no tricuspid regurgitation. History of coronary artery disease, details unknown, patient is not sure. No history of coronary intervention. RECOMMENDATION: Continue Eliquis, continue dose adjusted according to renal and age, 2.5 b.i.d. Continue verapamil p.o. t.i.d. Continue atenolol. Since the patient has renal insufficiency, we will start hydralazine for better controlling the blood pressure and avoid DAVID inhibitor, nephrotoxic medication. We will follow with you. Thank you for providing us the opportunity in taking care of the patient, Nii Scott. Josue Foster MD
--- NOTE | 2017-10-18 18:39 | CP.PCM.PN ---
Subjective - Date & Time of Evaluation Date of Evaluation: 10/18/17 Time of Evaluation: 17:45 - Subjective Subjective: Infectious Disease Follow Up: October 18, 2017 72 yo male presenting with SOB and respiratory distress at home. When entering through the ER, the patient was started on BiPAP and given Lasix. 15 minutes afterwards, the patient had worsening SOB and required intubation. Influenza testing was negative. Multiple electrolyte abnormalities especially hyponatremia and elevated creatinine. Patient is acidotic as well. Most of the information taken from the patient's chart. As the patient is intubated and ventilated now, unable to ask the patient any additional questions. The patient has no recent previous hospitalizations (last hospitalization in 2012). Procalcitonin up to 18.11. Extubated yesterday and appears to be doing well. Off BiPAP. WBC has dropped dramatically to 12.9. Most of his electrolyte abnormalities have improved. However, creatinine still remains high. Urine cultures showing gram negative elan identified as Proteus. Sensitive to Cefepime. Currently on Cefepime and Vancomycin. Creatinine slowly improving. Overall improving. Tachycardia improved. Patient is more awake and alert. Had Difficulty weaning from BiPAP. Verapamil added given difficulty in controlling heart rate. On the whole, the patient is improved compared to admission. Appears to be tolerating with out BiPAP. Objective - Vital Signs/Intake and Output Vital Signs (last 24 hours): Temp Pulse Resp BP Pulse Ox 97.9 F 65 13 186/78 H 96 10/18/17 12:00 10/18/17 17:42 10/18/17 14:00 10/18/17 17:42 10/18/17 14:00 Intake and Output: 10/18/17 10/18/17 06:59 18:59 Intake Total 1680 Output Total 1750 Balance -70 - Medications Medications: Current Medications Albuterol Sulfate (Albuterol 0.083% Inhal Lydia (2.5 Mg/3 Ml) Ud) 2.5 mg IH Q2H PRN PRN Reason: Shortness of Breath Apixaban (Eliquis) 2.5 mg PO BID [facility] PRN Reason: Protocol Last Admin: 10/18/17 17:42 Dose: 2.5 mg Artificial Tears (Artificial Tears) 0 ml OU BID [facility] Last Admin: 10/18/17 17:42 Dose: 1 drop Atenolol (Tenormin) 25 mg PO DAILY [facility] Last Admin: 10/18/17 10:06 Dose: 25 mg Budesonide (Pulmicort Respules) 0.5 mg IH [id number] [facility] Last Admin: 10/18/17 07:20 Dose: 0.5 mg Hydralazine HCl (Apresoline) 25 mg PO TID [facility] Last Admin: 10/18/17 17:42 Dose: 25 mg Cefepime HCl (Maxipime 1gm) 1 gm in 100 mls @ 100 mls/hr IVPB Q12 [facility] PRN Reason: Protocol Last Admin: 10/18/17 10:07 Dose: 100 mls/hr Sodium Chloride (Sodium Chloride 0.45%) 1,000 mls @ 125 mls/hr IV .Q8H [facility] Last Admin: 10/18/17 11:57 Dose: 125 mls/hr Insulin Detemir (Levemir) 40 unit SC HS [facility] Insulin Human Lispro (Humalog) 20 units SC AC [facility] Last Admin: 10/18/17 16:36 Dose: 20 units Insulin Human Regular (Humulin R Med) 0 units SC ACHS [facility] PRN Reason: Protocol Last Admin: 10/18/17 16:36 Dose: 7 units Levalbuterol HCl (Xopenex) 1.25 mg IH [id number] [facility] Last Admin: 10/18/17 13:12 Dose: 1.25 mg Methylprednisolone (Solu-Medrol) 20 mg IVP Q12 [facility] Last Admin: 10/18/17 10:07 Dose: 20 mg Oxycodone/Acetaminophen (Percocet 5/325 Mg Tab) 1 tab PO Q4H PRN PRN Reason: Pain, moderate (4-7) Stop: 10/21/17 10:06 Last Admin: 10/18/17 10:12 Dose: 1 tab Pantoprazole Sodium (Protonix Susp) 40 mg PO 0600 [facility] Last Admin: 10/18/17 08:17 Dose: 40 mg Verapamil HCl (Verapamil Inj) 2.5 mg IVP Q4H PRN PRN Reason: For heart rate >130 Last Admin: 10/16/17 09:07 Dose: 2.5 mg Verapamil HCl (Calan Tab) 40 mg PO TID [facility] Last Admin: 10/18/17 17:42 Dose: 40 mg - Labs Labs: 10/18/17 06:00 10/18/17 06:00 PT 17.1 SECONDS (9.4-12.5) H 10/11/17 14:50 INR 1.49 (0.93-1.08) H 10/11/17 14:50 APTT 66.1 Seconds (25.1-36.5) H 10/16/17 07:40 - Constitutional Appears: Non-toxic, No Acute Distress, Chronically Ill - Head Exam Head Exam: ATRAUMATIC, NORMOCEPHALIC - Eye Exam Eye Exam: EOMI, PERRL Pupil Exam: NORMAL ACCOMODATION, PERRL - ENT Exam ENT Exam: Mucous Membranes Moist, Normal External Ear Exam, TM's Normal Bilaterally - Neck Exam Neck Exam: Full ROM, Normal Inspection - Respiratory Exam Respiratory Exam: Decreased Breath Sounds. absent: Rales, Rhonchi, Wheezes - Cardiovascular Exam Cardiovascular Exam: REGULAR RHYTHM, RRR, +S1, +S2 - GI/Abdominal Exam GI & Abdominal Exam: Soft, Normal Bowel Sounds. absent: Distended, Tenderness - Extremities Exam Extremities Exam: Full ROM, Normal Inspection - Neurological Exam Neurological Exam: Alert, Awake, CN II-XII Intact, Oriented x3 - Psychiatric Exam Psychiatric exam: Normal Affect, Normal Mood - Skin Skin Exam: Intact, Normal Color Assessment and Plan - Assessment and Plan (Free Text) Assessment: 72 yo male with respiratory distress at home. Presented with SOB and required intubation and ventilation once in the [facility] [place]. Patient with significant leukocytosis and borderline fevers here at [facility] [place]. Procalcitonin sent. On Cefepime, Vancomycin IV, and Azithromycin. Started on Tamiflu. CT scan showing RML/RLL consolidation/infiltrates. Current antibiotic regimen is reasonable start point. Procalcitonin results of 18.11. Flynn cultures sent. Patient with lactic acidosis and electrolyte abnormalities. Hyponatremia. Acute renal failure with GFR less than 20 and creatinine of 4.1 on admission. Extubated yesterday. Improving. Pneumonia with RLL infiltrate on chest x-ray. Remains on Vancomycin IV, Azithromycin, and Cefepime for treatment. Most electrolyte abnormalities have normalized. Still elevated creatinine at 2.4. Urine cultures with gram negative rods identified as Proteus. On the whole improving rapidly. Back in NSR on Cardizem and Verapamil so far. Had Difficulty weaning from BiPAP. Off BiPAP the last 24 hours. Improving. Thank you for allowing me to participate in the care of the patient, we will follow with you.
--- NOTE | 2017-10-18 21:42 | PN ---
DATE: ENDOCRINOLOGY FOLLOWUP NOTE LOCATION: In ICU room 129, bed 7. SUBJECTIVE: This is a 72-year-old male with recent uncontrolled type 2 insulin-requiring diabetes, currently still on the IV Solu-Medrol for acute exacerbation of COPD and is now being followed closely for metabolic management. His glycemic levels are fluctuating, but improved and the glucose levels today have ranged from 297-358 mg/dL. The latest chemistry showed a BUN of 64, sodium 147, potassium 4.2, chloride 108, CO2 of 28, glucose 376 and creatinine 2.2. So at this time, we will modify once again his basal and bolus insulin regimen and increase the Humalog to 20 units subcu t.i.d. before meals to start today as ordered. We will also increase the Levemir given as basal insulin to 40 units subcu at bedtime daily to start tonight. We will continue the same low-dose correction scale using Humalog insulin to obviate hypoglycemia as noted and ordered. We will obtain serial chemistries and supplement accordingly as needed. We will follow. Roxy Angeles MD
[2017-10-18] MEDS ORDERED: Insulin Detemir 100 units/ml Vial (Levemir) SC SCH (22:00)
[2017-10-19] MEDS: Levalbuterol 1.25 MG/3 ML Inhal Soln UD IH SCH ×4 (02:16→20:24)
[2017-10-19] MEDS: Pantoprazole 40 mg Susp UD PO SCH (05:04)
[2017-10-19] MEDS: Sodium Chloride 0.45% 1,000 ML IV SCH (07:00)
[2017-10-19 07:10] LABS: GRAN # 8.25 (1.4-6.5); GRAN % 92.3 % (50.0-68.0); HEMOGLOBIN 11.9 g/dL (14.0-18.0); LYMPH # 0.3 (1.2-3.4); LYMPH % 3.7 % (22.0-35.0); MEAN CELL VOLUME 99.4 fl (80.0-105.0); MEAN CORPUSCULAR HEMOGLOBIN 33.2 pg (25.0-35.0); MEAN CORPUSCULAR HGB CONC 33.4 g/dl (31.0-37.0); MEAN PLATELET VOLUME 12.8 fl (7.0-11.0); MONO # 0.4 (0.1-0.6); PLATELET COUNT 117 10^3/uL (120.0-450.0); RBC 3.58 10^6/uL (3.5-6.1); RED CELL DISTRIBUTION WIDTH 14.5 % (11.5-14.5); WHITE BLOOD COUNT 8.9 10^3/ul (4.5-11.0)
[2017-10-19 07:30] LABS: ALB/GLOB RATIO 0.8 (1.1-1.8); ALBUMIN 2.7 g/dL (3.0-4.8); CALCIUM 7.2 mg/dL (8.4-10.5)
[2017-10-19] MEDS: Budesonide 0.5 mg/2 ml Inhal Susp UD IH SCH ×2 (07:40→20:24)
[2017-10-19] MEDS: Insulin Reg-MEDIUM-Coverage SC SCH ×3 (08:38→16:58)
--- NOTE | 2017-10-19 08:38 | RAD ---
HISTORY: f/u COMPARISON: Portable chest 10/18/2017 FINDINGS: LUNGS: No significant interval change in heterogeneous infiltrate at the mid to inferior right lung zones is seen in the interval. Limited developing airspace disease is questioned at the lingula silhouetting the lateral left heart border, not felt to represent epicardial fat. PLEURA: No significant pleural effusion identified, no pneumothorax apparent. CARDIOVASCULAR: Normal. OSSEOUS STRUCTURES: No significant abnormalities. VISUALIZED UPPER ABDOMEN: Normal. OTHER FINDINGS: None. IMPRESSION: No interval change in inner rate heterogeneous infiltrate at the mid to inferior right lung zones with limited inferior lingula airspace disease suspected developing at the left. Continued clinical and radiographic monitor advised.
[2017-10-19 08:40] LABS: LYMPHOCYTE 3 % (22.0-35.0); MONOCYTE 2 % (1.0-6.0); NEUTROPHIL 95 % (50.0-70.0); PLATELET CLUMPS PRESENT; PLATELET ESTIMATE LOW (NORMAL)
[2017-10-19] MEDS: Insulin Lispro 1 UNITS/0.01 ML SC SCH ×3 (08:40→16:58)
--- NOTE | 2017-10-19 09:09 | PN ---
DATE: 10/19/2017 PULMONARY NOTE SUBJECTIVE: The patient appears comfortable this morning. He is not short of breath at rest. PHYSICAL EXAMINATION VITAL SIGNS: Temperature is 97.0, pulse is 68, respirations 19, blood pressure 155/60. Oxygen saturation on nasal cannula is 91%-95%. HEENT: Normocephalic, atraumatic. No JVD. CARDIOVASCULAR: Systolic ejection murmur at the lower left sternal border. No S3 gallop. LUNGS: Decreased breath sounds at the bases with crackles. Minimal rhonchi. Minimal wheezing this morning. EXTREMITIES: Positive for edema. No cyanosis, no clubbing. Calves are nontender to palpation. GI: Abdomen is soft, nontender and nondistended. Bowel sounds are positive. SKIN: No acute rash. NEUROLOGIC: Limited at the present time. IMPRESSION: 1. Status post respiratory failure. 2. Right lower lobe pneumonia. 3. Chronic obstructive pulmonary disease. 4. Acute bronchospasm. 5. Cardiac arrhythmias. PLAN: The patient appears comfortable this morning. He is not short of breath at rest. He does remain very weak looking. However, he does state to feeling much better overall. I did discuss the case with the night nurse at length. The night nurse stated that the patient had a pretty good night. On physical exam, there is slightly more bronchospasm this morning. I will continue the current nebulizer treatments and increase the intravenous steroids(slightly) this morning. The patient remains on antibiotic therapy - as per Infectious Disease. The temperatures have fully resolved. The leukocytosis has also fully resolved. Arterial blood gas and chest x-ray are both ordered for the morning - both pending. The clinical status of the patient is significantly improved - compared to the initial presentation. However, again, the future status/prognosis for this patient does remain very guarded. I will discuss the above with the attending physician. Umair Kauffman MD [facility]
[2017-10-19] MEDS ORDERED: MethylPREDNISolone 40 mg Vial IVP SCH (10:00)
[2017-10-19] MEDS: Aritificial Tears (15ml) OU SCH ×2 (10:27→17:22)
[2017-10-19] MEDS: Cefepime 1gm in NS 100ml 1 GM/100 ML BAG IVPB SCH (10:28)
--- NOTE | 2017-10-19 16:18 | CP.PCM.PN ---
Subjective - Date & Time of Evaluation Date of Evaluation: 10/19/17 Time of Evaluation: 14:15 - Subjective Subjective: Infectious Disease Follow Up: October 19, 2017 72 yo male presenting with SOB and respiratory distress at home. When entering through the ER, the patient was started on BiPAP and given Lasix. 15 minutes afterwards, the patient had worsening SOB and required intubation. Influenza testing was negative. Multiple electrolyte abnormalities especially hyponatremia and elevated creatinine. Patient is acidotic as well. Most of the information taken from the patient's chart. As the patient is intubated and ventilated now, unable to ask the patient any additional questions. The patient has no recent previous hospitalizations (last hospitalization in 2012). Procalcitonin up to 18.11. Extubated yesterday and appears to be doing well. Off BiPAP. WBC has dropped dramatically to 12.9. Most of his electrolyte abnormalities have improved. However, creatinine still remains high. Urine cultures showing gram negative elan identified as Proteus. Sensitive to Cefepime. Currently on Cefepime and Vancomycin. Creatinine slowly improving. Overall improving. Tachycardia improved. Patient is more awake and alert. Had Difficulty weaning from BiPAP. Verapamil added given difficulty in controlling heart rate. On the whole, the patient is improved compared to admission. Appears to be tolerating with out BiPAP. Transferred to medical floor last night. Patient states that he feels pretty good this morning. Objective - Vital Signs/Intake and Output Vital Signs (last 24 hours): Temp Pulse Resp BP Pulse Ox 97.9 F 68 20 122/56 L 91 L 10/19/17 12:00 10/19/17 15:13 10/19/17 12:00 10/19/17 15:13 10/19/17 06:00 Intake and Output: 10/19/17 10/19/17 06:59 18:59 Intake Total 1605 Output Total 450 Balance 1155 - Medications Medications: Current Medications Albuterol Sulfate (Albuterol 0.083% Inhal Lydia (2.5 Mg/3 Ml) Ud) 2.5 mg IH Q2H PRN PRN Reason: Shortness of Breath Apixaban (Eliquis) 2.5 mg PO BID [facility] PRN Reason: Protocol Last Admin: 10/19/17 10:27 Dose: 2.5 mg Artificial Tears (Artificial Tears) 0 ml OU BID [facility] Last Admin: 10/19/17 10:27 Dose: 1 drop Atenolol (Tenormin) 25 mg PO DAILY [facility] Last Admin: 10/19/17 10:28 Dose: 25 mg Budesonide (Pulmicort Respules) 0.5 mg IH [id number] [facility] Last Admin: 10/19/17 07:40 Dose: 0.5 mg Hydralazine HCl (Apresoline) 25 mg PO TID [facility] Last Admin: 10/19/17 15:13 Dose: 25 mg Cefepime HCl (Maxipime 1gm) 1 gm in 100 mls @ 100 mls/hr IVPB Q12 [facility] PRN Reason: Protocol Last Admin: 10/19/17 10:28 Dose: 100 mls/hr Insulin Detemir (Levemir) 50 unit SC HS [facility] Insulin Human Lispro (Humalog) 20 units SC AC [facility] Last Admin: 10/19/17 12:32 Dose: 20 units Insulin Human Regular (Humulin R Med) 0 units SC ACHS [facility] PRN Reason: Protocol Last Admin: 10/19/17 12:34 Dose: 5 units Levalbuterol HCl (Xopenex) 1.25 mg IH [id number] [facility] Last Admin: 10/19/17 13:44 Dose: 1.25 mg Methylprednisolone (Solu-Medrol) 40 mg IVP Q12 [facility] Last Admin: 10/19/17 10:28 Dose: 40 mg Oxycodone/Acetaminophen (Percocet 5/325 Mg Tab) 1 tab PO Q4H PRN PRN Reason: Pain, moderate (4-7) Stop: 10/21/17 10:06 Last Admin: 10/18/17 10:12 Dose: 1 tab Pantoprazole Sodium (Protonix Susp) 40 mg PO 0600 [facility] Last Admin: 10/19/17 05:04 Dose: 40 mg Verapamil HCl (Verapamil Inj) 2.5 mg IVP Q4H PRN PRN Reason: For heart rate >130 Last Admin: 10/16/17 09:07 Dose: 2.5 mg Verapamil HCl (Calan Tab) 40 mg PO TID [facility] Last Admin: 10/19/17 15:13 Dose: 40 mg - Labs Labs: 10/19/17 07:00 10/19/17 06:50 PT 17.1 SECONDS (9.4-12.5) H 10/11/17 14:50 INR 1.49 (0.93-1.08) H 10/11/17 14:50 APTT 66.1 Seconds (25.1-36.5) H 10/16/17 07:40 - Constitutional Appears: Non-toxic, No Acute Distress, Chronically Ill - Head Exam Head Exam: ATRAUMATIC, NORMOCEPHALIC - Eye Exam Eye Exam: EOMI, PERRL Pupil Exam: NORMAL ACCOMODATION, PERRL - ENT Exam ENT Exam: Mucous Membranes Moist, Normal External Ear Exam, TM's Normal Bilaterally - Neck Exam Neck Exam: Full ROM, Normal Inspection - Respiratory Exam Respiratory Exam: Clear to Ausculation Bilateral, NORMAL BREATHING PATTERN. absent: Rales, Rhonchi, Wheezes - Cardiovascular Exam Cardiovascular Exam: REGULAR RHYTHM, RRR, +S1, +S2 - GI/Abdominal Exam GI & Abdominal Exam: Soft, Normal Bowel Sounds. absent: Distended, Tenderness - Extremities Exam Extremities Exam: Full ROM, Normal Inspection - Neurological Exam Neurological Exam: Alert, Awake, CN II-XII Intact, Oriented x3 - Psychiatric Exam Psychiatric exam: Normal Affect, Normal Mood - Skin Skin Exam: Intact, Normal Color Assessment and Plan - Assessment and Plan (Free Text) Assessment: 72 yo male with respiratory distress at home. Presented with SOB and required intubation and ventilation once in the [facility] [place]. Patient with significant leukocytosis and borderline fevers here at [facility] [place]. Procalcitonin sent. On Cefepime, Vancomycin IV, and Azithromycin. Started on Tamiflu. CT scan showing RML/RLL consolidation/infiltrates. Current antibiotic regimen is reasonable start point. Procalcitonin results of 18.11. Flynn cultures sent. Patient with lactic acidosis and electrolyte abnormalities. Hyponatremia. Acute renal failure with GFR less than 20 and creatinine of 4.1 on admission. Extubated yesterday. Improving. Pneumonia with RLL infiltrate on chest x-ray. Remains on Vancomycin IV, Azithromycin, and Cefepime for treatment. Most electrolyte abnormalities have normalized. Still elevated creatinine at 2.4. Urine cultures with gram negative rods identified as Proteus. On the whole improving rapidly. Back in NSR on Cardizem and Verapamil so far. Had Difficulty weaning from BiPAP. Off BiPAP the last 24 hours. Improving. Thank you for allowing me to participate in the care of the patient, we will follow with you.
[2017-10-19 17:23] VITALS: BP 128/65; PULSE 67
--- NOTE | 2017-10-19 17:25 | PN ---
DATE: 10/19/2017 LOCATION: The patient in room 373, bed 1. REASON FOR CONSULTATION AND FOLLOWUP: AFib with rapid rate, history of respiratory failure, COPD exacerbation status post extubated, sepsis, pneumonia. SUBJECTIVE: Patient lying comfortably in bed without chest pain, palpitation. He says his breathing is also better. PHYSICAL EXAMINATION: VITAL SIGNS: Blood pressure 152/66, pulse 66, patient is afebrile, respirations 19. HEENT: Head is normocephalic. Eyes, pupils are normal. Conjunctivae slightly pale. NECK: JVP low. Carotids are equal. THORAX: AP diameter normal. LUNGS: Bilateral expiratory rhonchi. CARDIOVASCULAR: S1 and S2. ABDOMEN: Protuberant, no organomegaly. EXTREMITIES: No clubbing, no cyanosis. LABORATORY DATA: WBC 8.9, hemoglobin 11.9, hematocrit 35.6, and platelets 117. Sodium 140, potassium 4.5. BUN 59, creatinine 1.9. Sugar 227. AST 71, ALT 94, total protein 5.9, albumin 2.7. Chest x-ray repeated today, no change in infiltrate in the right lung. DIAGNOSES: Chronic kidney disease with acute kidney injury, diabetes, hypertension, hyperlipidemia, obesity, chronic obstructive pulmonary disease with exacerbation, sepsis, respiratory tract infection, respiratory failure status post intubation and successfully extubated, atrial fibrillation with rapid ventricular rate, now the rate has been controlled. Recent echo showed ejection fraction of 55%, right ventricular systolic pressure of 23 mmHg. History of coronary artery disease, details are not known. Patient is not sure, but no history of coronary intervention. PLAN: We will continue hydralazine 25 t.i.d., verapamil 40 t.i.d., Eliquis 2.5 b.i.d., insulin has ordered, cefepime 1 g IV q. 12 hours, Protonix 40 daily, Solu-Medrol 40 IV q. 12 hours, atenolol 25 daily, Xopenex hand-held nebulizer therapy. We will continue present therapy. We will follow. Josue Mathur MD
[2017-10-19 18:08] VITALS: RESP 18; TEMP 97.3; O2SAT 94
[2017-10-19] MEDS ORDERED: Insulin Detemir 100 units/ml Vial (Levemir) SC SCH (22:00)
--- NOTE | 2017-10-20 01:59 | PN ---
DATE: ENDOCRINOLOGY FOLLOWUP NOTE LOCATION: Room 373. SUBJECTIVE: This is a 72-year-old male with recent uncontrolled type 2 insulin-requiring diabetes, now being followed closely for metabolic management. He is on a tapering dose of the IV steroid therapy as given for acute exacerbation of COPD and concomitant acute pneumonitis as noted thereof. His glycemic levels are fluctuating, but improved and the glucose values are ranging from to 227-279 mg/dL. His latest chemistry showed a BUN of 59, sodium 140, potassium 4.5, chloride 106, CO2 of 24, glucose 251 and creatinine 1.9. So at this time, we will continue the same basal and bolus insulin regimen to allow for dose equilibration and keep him on the Humalog given as 20 units subcu t.i.d. before meals as ordered. We will modify and titrate the Levemir to a higher dose of 50 units subcu at bedtime daily to start tonight. We will continue the low-dose correction scale using Humalog insulin as given. We will follow and advise accordingly. Roxy Angeles MD
== END 2017-10-19 19:45 | DRG 871 ==
LOC: ED 14:51 → ERH 16:07 → CCU 17:49 → 3RSO 10-18 20:07
PROVIDERS: ADMIT Internal Medicine; ATTEND Internal Medicine
PROC: 0BH17EZ Insertion of Endotracheal Airway into Trachea, Via Natural or Artificial Opening (ICD-10-PCS; principal; 2017-10-11)
PROC: 5A1945Z Respiratory Ventilation, 24-96 Consecutive Hours (ICD-10-PCS; 2017-10-11)
PROC: 5A09457 Assistance with Respiratory Ventilation, 24-96 Consecutive Hours, Continuous Positive Airway Pressure (ICD-10-PCS; 2017-10-11)
DX: A41.9 Sepsis, unspecified organism (principal); R65.21 Severe sepsis with septic shock; J96.00 Acute respiratory failure, unspecified whether with hypoxia or hypercapnia; J18.9 Pneumonia, unspecified organism; N17.9 Acute kidney failure, unspecified; I13.0 Hypertensive heart and chronic kidney disease with heart failure and stage 1 through stage 4 chronic kidney disease, or unspecified chronic kidney disease; E11.22 Type 2 diabetes mellitus with diabetic chronic kidney disease; E11.42 Type 2 diabetes mellitus with diabetic polyneuropathy; I50.9 Heart failure, unspecified; E11.319 Type 2 diabetes mellitus with unspecified diabetic retinopathy without macular edema; I48.0 Paroxysmal atrial fibrillation; I47.1 Supraventricular tachycardia; E87.1 Hypo-osmolality and hyponatremia; E87.2 Acidosis; J44.0 Chronic obstructive pulmonary disease with (acute) lower respiratory infection; J44.1 Chronic obstructive pulmonary disease with (acute) exacerbation; N39.0 Urinary tract infection, site not specified; E11.51 Type 2 diabetes mellitus with diabetic peripheral angiopathy without gangrene; E03.9 Hypothyroidism, unspecified; E07.81 Sick-euthyroid syndrome; E11.649 Type 2 diabetes mellitus with hypoglycemia without coma; E11.65 Type 2 diabetes mellitus with hyperglycemia; E66.9 Obesity, unspecified; E78.5 Hyperlipidemia, unspecified; E88.81 Metabolic syndrome and other insulin resistance; I25.10 Atherosclerotic heart disease of native coronary artery without angina pectoris; N18.9 Chronic kidney disease, unspecified; Z72.0 Tobacco use; Z79.01 Long term (current) use of anticoagulants; Z79.4 Long term (current) use of insulin; Z87.820 Personal history of traumatic brain injury; Z95.5 Presence of coronary angioplasty implant and graft; L40.9 Psoriasis, unspecified; B96.4 Proteus (mirabilis) (morganii) as the cause of diseases classified elsewhere; R40.2412 Glasgow coma scale score 13-15, at arrival to emergency department; Z68.37 Body mass index [BMI] 37.0-37.9, adult

== ENCOUNTER 2017-10-19 19:45 | Inpatient (IN) | payer OTHER ==
[2017-10-19] MEDS ORDERED: Levalbuterol 1.25 MG/3 ML Inhal Soln UD IH PRN (21:33)
[2017-10-19] MEDS ORDERED: MethylPREDNISolone 40 mg Vial IVP SCH (22:00)
[2017-10-19] MEDS: Insulin Detemir 100 units/ml Vial (Levemir) SC SCH (23:35)
[2017-10-19] MEDS: Cefepime 1gm in NS 100ml 1 GM/100 ML BAG IVPB SCH (23:35)
[2017-10-20 04:06] VITALS: BMI 41.6
[2017-10-20] MEDS: Levothyroxine 100 MCG TAB PO SCH (06:48)
[2017-10-20] MEDS: Pantoprazole 40 mg EC Tab PO SCH (06:48)
[2017-10-20] MEDS: Arformoterol 15 mcg/2 ml Inh Sol IH SCH ×2 (07:14→21:21)
[2017-10-20] MEDS: Budesonide 0.5 mg/2 ml Inhal Susp UD IH SCH ×2 (07:14→21:21)
[2017-10-20] MEDS: Levalbuterol 1.25 MG/3 ML Inhal Soln UD IH SCH ×3 (07:14→21:21)
[2017-10-20 07:33] LABS: BASO # 0.01 K/mm3 (0.0-2.0); BASO % 0.1 % (0.0-3.0); GRAN # 8.33 (1.4-6.5); GRAN % 91.7 % (50.0-68.0); HEMOGLOBIN 12.2 g/dL (14.0-18.0); LYMPH # 0.4 (1.2-3.4); LYMPH % 4.7 % (22.0-35.0); MEAN CORPUSCULAR HEMOGLOBIN 33.4 pg (25.0-35.0); MEAN CORPUSCULAR HGB CONC 33.4 g/dl (31.0-37.0); MEAN PLATELET VOLUME 13.2 fl (7.0-11.0); MONO # 0.3 (0.1-0.6); MONO % 3.5 % (1.0-6.0); RBC 3.65 10^6/uL (3.5-6.1); RED CELL DISTRIBUTION WIDTH 14.4 % (11.5-14.5); WHITE BLOOD COUNT 9.1 10^3/ul (4.5-11.0)
[2017-10-20 07:34] LABS: ALB/GLOB RATIO 0.8 (1.1-1.8); ALBUMIN 2.7 g/dL (3.0-4.8); CALCIUM 7.4 mg/dL (8.4-10.5)
--- NOTE | 2017-10-20 10:12 | PN ---
DATE: 10/20/2017 PULMONARY NOTE SUBJECTIVE: Patient appears comfortable this morning. He is not short of breath at rest. PHYSICAL EXAMINATION: VITAL SIGNS: Temperature is 97.5, pulse 64, respirations 18, blood pressure 141/56. Oxygen saturation on nasal cannula is 93%. HEENT: Normocephalic, atraumatic. No JVD. CARDIOVASCULAR: Systolic ejection murmur at the lower left sternal border. No S3 gallop. LUNGS: Decreased breath sounds at the bases with crackles. Less rhonchi. No wheezing this morning. EXTREMITIES: Positive for edema. No cyanosis, no clubbing. Calves are nontender to palpation. GASTROINTESTINAL: Abdomen is soft, nontender and nondistended. Bowel sounds are positive. SKIN: No acute rash. NEUROLOGIC: Exam limited at the present time. IMPRESSION: 1. Status post respiratory failure. 2. Right lower lobe pneumonia. 3. Chronic obstructive pulmonary disease. 4. Acute bronchospasm. 5. Cardiac arrhythmias. PLAN: Patient appears comfortable this morning. He is not short of breath at rest. He appears less weak this morning. He does state to feeling much better overall. I did discuss the case with the night nurse at length. The night nurse stated that the patient had a good night. On physical exam, there is less bronchospasm - compared to yesterday. I did have the patient on 40 mg every 12 hours of Solu-Medrol. I will decrease the dosage today to 30 mg every 12 hours. I will also change the Xopenex nebulizer treatments to a scheduled dosage. In addition, I will continue with the chest physiotherapy and aspiration precautions. The patient is now on the Transitional Unit - where he will participate with physical therapy. Clinical status of the patient is significantly improved, but remains guarded overall. I will discuss the above with the attending physician. Umair Kauffman MD [facility]
[2017-10-20] MEDS: MethylPREDNISolone 40 mg Vial IVP SCH ×2 (10:39→21:38)
--- NOTE | 2017-10-20 16:04 | CON ---
DATE: 10/20/2017 LOCATION: The patient in room 313, bed 2. REASON FOR CONSULTATION: Atrial fibrillation, exacerbation of COPD, status post respiratory failure, status post successful extubation, now the patient admitted to TCU for deconditioning. 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 The patient was intubated and successfully extubated. The patient developed atrial fibrillation with rapid rate. The patient now transferred to transitional care unit for deconditioning and physical therapy. The patient denies any chest pain. His breathing is better. Denies any palpitation. PAST MEDICAL HISTORY: Past history positive for coronary artery disease, details of which are unknown; diabetes; hypertension; hypothyroidism; traumatic brain injury after a fall from the roof 14 years ago; history of exacerbation of COPD in 2012. MEDICATIONS: The patient's home medications included Synthroid, multiple inhalers for COPD and medication for diabetes. ALLERGIES: THE PATIENT DENIES ANY ALLERGIES. PERSONAL HISTORY: The patient used to smoke before, now he has stopped. No history of alcohol abuse. REVIEW OF SYSTEMS: All other systems reviewed, positives mentioned in the history, others were negative. PHYSICAL EXAMINATION: VITAL SIGNS: Blood pressure 137/61, respirations 20, pulse 71, temperature 97.1. HEENT: Head is normocephalic. Eyes: Pupils normal. Conjunctivae slightly pale. NECK: JVP low. Carotids equal. THORAX: AP diameter normal. LUNGS: No rales. Few wheezing sound, expiratory. No rub. ABDOMEN: Soft, protuberant. No organomegaly. Bowel sound normal. CARDIOVASCULAR: S1 and S2. No rub. EXTREMITIES: No clubbing. No cyanosis. LABORATORY DATA: WBC 9.1, hemoglobin 12.2, hematocrit 36.5, platelets 114. Sodium 138, potassium 4.5, BUN 61, creatinine 1.8, calcium 7.4, AST 66, ALT 99, total protein 6.1, albumin 2.7. DIAGNOSES: Status post exacerbation of chronic obstructive pulmonary disease, status post respiratory failure, successful extubation, sepsis, respiratory tract infection, pneumonia, atrial fibrillation and rapid rate, now the rate is controlled. Recent echocardiogram showed left ventricular ejection fraction of 55%. Right ventricular systolic pressure 23 mmHg. History of coronary artery disease, details are not known; obesity; deconditioning. PLAN: Continue physical therapy. The patient is on hydralazine 25 mg t.i.d., verapamil 40 t.i.d., Eliquis 2.5 b.i.d., insulin as ordered, Lopressor 50 b.i.d., cefepime 1 g IV daily, Micronase 5 mg b.i.d., Protonix 40 daily, Solu-Medrol 30 mg IV q. 12 hours, Synthroid 100 mcg p.o. daily, lisinopril 10 mg daily. The patient also advised to lose weight. We will continue to follow. Josue Mathur MD
[2017-10-20] MEDS: Insulin Reg-LOW-Coverage SC SCH ×2 (16:30→23:00)
--- NOTE | 2017-10-20 18:29 | CP.PCM.CON ---
History of Present Illness - History of Present Illness History of Present Illness: Infectious Disease Consult/Follow Up: October 20, 2017 72 yo male presenting with SOB and respiratory distress at home. When entering through the ER, the patient was started on BiPAP and given Lasix. 15 minutes afterwards, the patient had worsening SOB and required intubation. Influenza testing was negative. Multiple electrolyte abnormalities especially hyponatremia and elevated creatinine. Patient is acidotic as well. Most of the information taken from the patient's chart. As the patient is intubated and ventilated now, unable to ask the patient any additional questions. The patient has no recent previous hospitalizations (last hospitalization in 2012). Procalcitonin up to 18.11. Extubated yesterday and appears to be doing well. Off BiPAP. WBC has dropped dramatically to 12.9. Most of his electrolyte abnormalities have improved. However, creatinine still remains high. Urine cultures showing gram negative elan identified as Proteus. Sensitive to Cefepime. Currently on Cefepime and Vancomycin. Creatinine slowly improving. Overall improving. Tachycardia improved. Patient is more awake and alert. Had Difficulty weaning from BiPAP. Verapamil added given difficulty in controlling heart rate. On the whole, the patient is improved compared to admission. Appears to be tolerating with out BiPAP. Transferred to medical floor last night. Patient states that he feels pretty good this morning. Patient will continue on Cefepime alone at this point to complete 14 days in total. PMHx: COPD, CHF, Ex-smoker PSHx: None that I am aware of Allergies: NKDA Social Hx: Patient has a tobacco use history from records in 2013 No known EtOH history No known illicit drug use history Active Medications Apixaban (Eliquis) 2.5 mg PO BID [facility] PRN Reason: Protocol Last Admin: 10/20/17 17:44 Dose: 2.5 mg Arformoterol Tartrate (Brovana) 15 mcg IH [id number] [facility] Last Admin: 10/20/17 07:14 Dose: 15 mcg Budesonide (Pulmicort Respules) 0.5 mg IH [id number] [facility] Last Admin: 10/20/17 07:14 Dose: 0.5 mg Glyburide (Micronase) 5 mg PO 0800,1700 [facility] Last Admin: 10/20/17 17:42 Dose: 5 mg Hydralazine HCl (Apresoline) 25 mg PO TID [facility] Last Admin: 10/20/17 17:42 Dose: 25 mg Cefepime HCl (Maxipime 1gm) 1 gm in 100 mls @ 100 mls/hr IVPB Q24H [facility] PRN Reason: Protocol Last Admin: 10/19/17 23:35 Dose: 100 mls/hr Insulin Detemir (Levemir) 40 unit SC HS [facility] Last Admin: 10/19/17 23:35 Dose: 40 unit Insulin Human Regular (Humulin R Low) 0 units SC ACHS [facility] Reason: Protocol Last Admin: 10/20/17 16:30 Dose: 4 units Levalbuterol HCl (Xopenex) 1.25 mg IH [id number] [facility] Last Admin: 10/20/17 13:54 Dose: 1.25 mg Levothyroxine Sodium (Synthroid) 100 mcg PO ACB [facility] Last Admin: 10/20/17 06:48 Dose: 100 mcg Lisinopril (Zestril) 10 mg PO DAILY [facility] Last Admin: 10/20/17 10:39 Dose: 10 mg Metformin HCl (Glucophage) 500 mg PO 0800,1700 [facility] Methylprednisolone (Solu-Medrol) 30 mg IVP Q12 [facility] Last Admin: 10/20/17 10:39 Dose: 30 mg Metoprolol Tartrate (Lopressor) 50 mg PO BID [facility] Last Admin: 10/20/17 17:44 Dose: Not Given Pantoprazole Sodium (Protonix Ec Tab) 40 mg PO 0600 [facility] Last Admin: 10/20/17 06:48 Dose: 40 mg Pneumococcal Polyvalent Vaccine (Pneumovax 23 Vaccine) 0.5 ml IM .ONCE ONE Stop: 10/26/17 09:01 Verapamil HCl (Calan Tab) 40 mg PO TID [facility] Last Admin: 10/20/17 17:44 Dose: Not Given Family Hx: Unable to Obtain ROS: Unable to Obtain. Past Patient History - Infectious Disease Hx of Infectious Diseases: None - Tetanus Immunizations Tetanus Immunization: Unknown - Past Social History Smoking Status: Unknown If Ever Smoked - CARDIAC Hx Congestive Heart Failure: Yes - PULMONARY Hx Chronic Obstructive Pulmonary Disease (COPD): Yes - ENDOCRINE/METABOLIC Hx Hypothyroidism: Yes - INTEGUMENTARY Hx Psoriasis: Yes - MUSCULOSKELETAL/RHEUMATOLOGICAL Hx Falls: Yes - GASTROINTESTINAL Hx Gastrointestinal Disorders: No - GENITOURINARY/GYNECOLOGICAL Hx Genitourinary Disorders: No Hx Reproductive Disorders: No - PSYCHIATRIC Hx Psychophysiologic Disorder: (unknown) Hx Depression: No Hx Emotional Abuse: No Hx Physical Abuse: No Hx Substance Use: (unknown) - SURGICAL HISTORY Hx Surgeries: (unknown) Hx Cardiac Catheterization: Yes Hx Coronary Stent: Yes Meds Allergies/Adverse Reactions: Allergies Allergy/AdvReac Type Severity Reaction Status Date / Time No Known Allergies Allergy Verified 10/11/17 19:45 - Medications Medications: Current Medications Apixaban (Eliquis) 2.5 mg PO BID [facility] PRN Reason: Protocol Last Admin: 10/20/17 17:44 Dose: 2.5 mg Arformoterol Tartrate (Brovana) 15 mcg IH [id number] [facility] Last Admin: 10/20/17 07:14 Dose: 15 mcg Budesonide (Pulmicort Respules) 0.5 mg IH [id number] [facility] Last Admin: 10/20/17 07:14 Dose: 0.5 mg Glyburide (Micronase) 5 mg PO 0800,1700 [facility] Last Admin: 10/20/17 17:42 Dose: 5 mg Hydralazine HCl (Apresoline) 25 mg PO TID [facility] Last Admin: 10/20/17 17:42 Dose: 25 mg Cefepime HCl (Maxipime 1gm) 1 gm in 100 mls @ 100 mls/hr IVPB Q24H [facility] PRN Reason: Protocol Last Admin: 10/19/17 23:35 Dose: 100 mls/hr Insulin Detemir (Levemir) 40 unit SC HS [facility] Last Admin: 10/19/17 23:35 Dose: 40 unit Insulin Human Regular (Humulin R Low) 0 units SC ACHS [facility] PRN Reason: Protocol Last Admin: 10/20/17 16:30 Dose: 4 units Levalbuterol HCl (Xopenex) 1.25 mg IH [id number] [facility] Last Admin: 10/20/17 13:54 Dose: 1.25 mg Levothyroxine Sodium (Synthroid) 100 mcg PO ACB [facility] Last Admin: 10/20/17 06:48 Dose: 100 mcg Lisinopril (Zestril) 10 mg PO DAILY [facility] Last Admin: 10/20/17 10:39 Dose: 10 mg Metformin HCl (Glucophage) 500 mg PO 0800,1700 [facility] Methylprednisolone (Solu-Medrol) 30 mg IVP Q12 [facility] Last Admin: 10/20/17 10:39 Dose: 30 mg Metoprolol Tartrate (Lopressor) 50 mg PO BID [facility] Last Admin: 10/20/17 17:44 Dose: Not Given Pantoprazole Sodium (Protonix Ec Tab) 40 mg PO 0600 [facility] Last Admin: 10/20/17 06:48 Dose: 40 mg Pneumococcal Polyvalent Vaccine (Pneumovax 23 Vaccine) 0.5 ml IM .ONCE ONE Stop: 10/26/17 09:01 Verapamil HCl (Calan Tab) 40 mg PO TID [facility] Last Admin: 10/20/17 17:44 Dose: Not Given Physical Exam - Constitutional Appears: Non-toxic, No Acute Distress, Chronically Ill - Head Exam Head Exam: ATRAUMATIC, NORMOCEPHALIC - Eye Exam Eye Exam: EOMI, PERRL Pupil Exam: NORMAL ACCOMODATION, PERRL - ENT Exam ENT Exam: Mucous Membranes Moist, Normal External Ear Exam, TM's Normal Bilaterally - Neck Exam Neck exam: Positive for: Full Rom, Normal Inspection - Respiratory Exam Respiratory Exam: Clear to Auscultation Bilateral, NORMAL BREATHING PATTERN. absent: Rales, Rhonchi, Wheezes - Cardiovascular Exam Cardiovascular Exam: REGULAR RHYTHM, RRR, +S1, +S2 - GI/Abdominal Exam GI & Abdominal Exam: Normal Bowel Sounds, Soft. absent: Distended, Tenderness - Extremities Exam Extremities exam: Positive for: full ROM, normal inspection - Neurological Exam Neurological exam: Alert, CN II-XII Intact, Oriented x3 - Psychiatric Exam Psychiatric exam: Normal Affect, Normal Mood - Skin Skin Exam: Intact, Normal Color Results - Vital Signs Recent Vital Signs: Last Vital Signs Temp 97.6 F 10/20/17 17:08 Pulse 56 L 10/20/17 17:44 Resp 20 10/20/17 17:08 BP 137/58 L 10/20/17 17:44 Pulse Ox 94 L 10/20/17 17:08 - Labs Result Diagrams: 10/20/17 07:00 10/20/17 07:00 Labs: Laboratory Results - last 24 hr 10/20/17 10/20/17 10/20/17 05:06 07:00 07:00 WBC 9.1 RBC 3.65 Hgb 12.2 L Hct 36.5 L MCV 100.0 MCH 33.4 MCHC 33.4 RDW 14.4 Plt Count 114 L MPV 13.2 H Gran % 91.7 H Lymph % (Auto) 4.7 L Wagoner % (Auto) 3.5 Eos % (Auto) 0.0 L Baso % (Auto) 0.1 Gran # 8.33 H Lymph # (Auto) 0.4 L Wagoner # (Auto) 0.3 Eos # (Auto) 0.0 Baso # (Auto) 0.01 Sodium 138 Potassium 4.5 Chloride 106 Carbon Dioxide 23 Anion Gap 14 BUN 61 H Creatinine 1.8 H Est GFR ( Amer) 45 Est GFR (Non-Af Amer) 37 POC Glucose (mg/dL) 183 H Random Glucose 194 H Calcium 7.4 L Total Bilirubin 0.9 AST 66 H ALT 99 H Alkaline Phosphatase 119 Total Protein 6.1 Albumin 2.7 L Globulin 3.4 Albumin/Globulin Ratio 0.8 L 10/20/17 16:53 WBC RBC Hgb Hct MCV MCH MCHC RDW Plt Count MPV Gran % Lymph % (Auto) Wagoner % (Auto) Eos % (Auto) Baso % (Auto) Gran # Lymph # (Auto) Wagoner # (Auto) Eos # (Auto) Baso # (Auto) Sodium Potassium Chloride Carbon Dioxide Anion Gap BUN Creatinine Est GFR ( Amer) Est GFR (Non-Af Amer) POC Glucose (mg/dL) 327 H Random Glucose Calcium Total Bilirubin AST ALT Alkaline Phosphatase Total Protein Albumin Globulin Albumin/Globulin Ratio Assessment & Plan - Assessment and Plan (Free Text) Assessment: 72 yo male with respiratory distress at home. Presented with SOB and required intubation and ventilation once in the [facility] ER. Patient with significant leukocytosis and borderline fevers here at [facility]. Procalcitonin sent. On Cefepime, Vancomycin IV, and Azithromycin. Started on Tamiflu. CT scan showing RML/RLL consolidation/infiltrates. Current antibiotic regimen is reasonable start point. Procalcitonin results of 18.11. Flynn cultures sent. Patient with lactic acidosis and electrolyte abnormalities. Hyponatremia. Acute renal failure with GFR less than 20 and creatinine of 4.1 on admission. Extubated yesterday. Improving. Pneumonia with RLL infiltrate on chest x-ray. Remains on Vancomycin IV, Azithromycin, and Cefepime for treatment. Most electrolyte abnormalities have normalized. Still elevated creatinine at 2.4. Urine cultures with gram negative rods identified as Proteus. On the whole improving rapidly. To complete on Cefepime for a total of 14 days. Stop Azithromycin and IV Vancomycin now. Thank you for allowing me to participate in the care of the patient, we will follow with you.
[2017-10-20] MEDS: Cefepime 1gm in NS 100ml 1 GM/100 ML BAG IVPB SCH (21:37)
[2017-10-20] MEDS: Insulin Detemir 100 units/ml Vial (Levemir) SC SCH (23:10)
[2017-10-21] MEDS: Pantoprazole 40 mg EC Tab PO SCH (06:41)
[2017-10-21] MEDS: Insulin Reg-LOW-Coverage SC SCH ×4 (06:42→22:08)
[2017-10-21] MEDS: Levothyroxine 100 MCG TAB PO SCH (06:42)
[2017-10-21] MEDS: Arformoterol 15 mcg/2 ml Inh Sol IH SCH ×2 (07:27→20:59)
[2017-10-21] MEDS: Budesonide 0.5 mg/2 ml Inhal Susp UD IH SCH ×2 (07:28→20:59)
[2017-10-21] MEDS: Levalbuterol 1.25 MG/3 ML Inhal Soln UD IH SCH ×3 (07:28→20:59)
--- NOTE | 2017-10-21 09:46 | PN ---
DATE: 10/21/2017 PULMONARY NOTE SUBJECTIVE: The patient appears comfortable this morning. He is not short of breath at rest. PHYSICAL EXAMINATION: VITAL SIGNS: (Last noted in the computer): Temperature is 97.6, pulse 56, respirations 18/20, blood pressure 137/58. Oxygen saturation on nasal cannula is 94%. HEENT: Normocephalic, atraumatic. No JVD. CARDIOVASCULAR: Systolic ejection murmur at the lower left sternal border. No S3 gallop. LUNGS: Decreased breath sounds at the bases with crackles. Less rhonchi. No wheezing. EXTREMITIES: Positive for edema. No cyanosis. No clubbing. Calves are nontender to palpation. GI: Abdomen is soft, nontender and nondistended. Bowel sounds are positive. SKIN: No acute rash. NEUROLOGIC: Limited at the present time. IMPRESSION: 1. Status post respiratory failure. 2. Right lower lobe pneumonia. 3. Chronic obstructive pulmonary disease. 4. Acute bronchospasm. 5. Cardiac arrhythmias. PLAN: The patient appears comfortable this morning. He is not short of breath at rest. He does state to feeling much better overall. I did discuss the case with the night nurse at length. The night nurse stated that the patient had a good night. I also impressed on the nurse, that I want the patient out of bed as much as possible. On physical exam, there is less bronchospasm noted. In addition, the alveolar-arterial gradient is also less. I will continue with the current nebulizer treatments and current intravenous steroids for now. The patient remains on antibiotic therapy - as per Infectious Disease. Temperatures have resolved. The leukocytosis has also resolved. Input by Dr. Mathur (Cardiology) is also noted. Clinical status of the patient is significantly improved. However, the future status/prognosis of this patient does remain guarded. I will discuss the above with the attending physician. Umair Kauffman MD [facility]
[2017-10-21] MEDS: MethylPREDNISolone 40 mg Vial IVP SCH ×2 (10:21→21:54)
--- NOTE | 2017-10-21 15:13 | PN ---
DATE: 10/21/2017 LOCATION: Room 313, bed 2. REASON FOR CONSULTATION AND FOLLOWUP: Atrial fibrillation, exacerbation of COPD, status post respiratory failure, status post successful extubation, and deconditioning. SUBJECTIVE: The patient lying comfortably in bed without chest pain, shortness of breath, or palpitation. The patient is now in Transitional Care Unit for deconditioning and physical therapy. PHYSICAL EXAMINATION: VITAL SIGNS: Blood pressure 144/54, respirations 20, pulse 69, and the patient afebrile. HEENT: Head is normocephalic. Eyes: Pupils normal. Conjunctivae normal. NECK: JVP low. Carotids equal. THORAX: AP diameter normal. LUNGS: No rales. Few wheezing. CARDIOVASCULAR: S1 and S2. ABDOMEN: Protuberant. No organomegaly. EXTREMITIES: No clubbing. No cyanosis. LABORATORY DATA: WBC 9.1, hemoglobin 12.2, hematocrit 36.5, and platelets 114. Sodium 138, potassium 4.5, BUN 61, creatinine 1.8, random sugar 327, random glucose 194, calcium 7.4, AST 66, and ALT 99. DIAGNOSES: Status post exacerbation of chronic obstructive pulmonary disease, status post respiratory failure, successful extubation, sepsis, respiratory tract infection, pneumonia, and atrial fibrillation with rapid rate, now the rate is controlled. Recent echocardiogram showed left ventricular ejection fraction of 55%, right ventricular systolic pressure of 23 mmHg. History of coronary artery disease, details are not known; obesity; deconditioning. PLAN: Continue physical therapy and continue present medication. Hydralazine 25 t.i.d., verapamil 40 t.i.d., Eliquis 2.5 b.i.d., metformin 500 b.i.d., metoprolol 50 b.i.d., cefepime 1 g IV q. 24 hours, glyburide 5 b.i.d., Solu-Medrol 30 mg IV q. 12 hours, Synthroid 100 mcg daily, lisinopril 10 daily, Xopenex hand nebulizer therapy. The patient was advised to lose weight and continue physical therapy. Josue Mathur MD [facility] # [id number]
--- NOTE | 2017-10-21 18:44 | CP.PCM.PN ---
Subjective - Date & Time of Evaluation Date of Evaluation: 10/21/17 Time of Evaluation: 16:15 - Subjective Subjective: Infectious Disease Follow Up: October 21, 2017 72 yo male presenting with SOB and respiratory distress at home. When entering through the ER, the patient was started on BiPAP and given Lasix. 15 minutes afterwards, the patient had worsening SOB and required intubation. Influenza testing was negative. Multiple electrolyte abnormalities especially hyponatremia and elevated creatinine. Patient is acidotic as well. Most of the information taken from the patient's chart. As the patient is intubated and ventilated now, unable to ask the patient any additional questions. The patient has no recent previous hospitalizations (last hospitalization in 2012). Procalcitonin up to 18.11. Extubated yesterday and appears to be doing well. Off BiPAP. WBC has dropped dramatically to 12.9. Most of his electrolyte abnormalities have improved. However, creatinine still remains high. Urine cultures showing gram negative elan identified as Proteus. Sensitive to Cefepime. Currently on Cefepime and Vancomycin. Creatinine slowly improving. Overall improving. Tachycardia improved. Patient is more awake and alert. Had Difficulty weaning from BiPAP. Verapamil added given difficulty in controlling heart rate. On the whole, the patient is improved compared to admission. Appears to be tolerating with out BiPAP. Transferred to medical floor last night. Patient states that he feels pretty good this morning. Patient will continue on Cefepime alone at this point to complete 14 days in total. Still mild SOB even while laying in bed but this is still better than on admission. Objective - Vital Signs/Intake and Output Vital Signs (last 24 hours): Temp Pulse Resp BP Pulse Ox 97.8 F 60 20 133/56 L 94 L 10/21/17 16:00 10/21/17 18:13 10/21/17 16:00 10/21/17 18:13 10/21/17 16:00 - Medications Medications: Current Medications Apixaban (Eliquis) 2.5 mg PO BID [facility] PRN Reason: Protocol Last Admin: 10/21/17 18:13 Dose: 2.5 mg Arformoterol Tartrate (Brovana) 15 mcg IH [id number] [facility] Last Admin: 10/21/17 07:27 Dose: 15 mcg Budesonide (Pulmicort Respules) 0.5 mg IH [id number] [facility] Last Admin: 10/21/17 07:28 Dose: 0.5 mg Glyburide (Micronase) 5 mg PO 0800,1700 [facility] Last Admin: 10/21/17 18:14 Dose: 5 mg Hydralazine HCl (Apresoline) 25 mg PO TID [facility] Last Admin: 10/21/17 18:11 Dose: 25 mg Cefepime HCl (Maxipime 1gm) 1 gm in 100 mls @ 100 mls/hr IVPB Q24H [facility] Reason: Protocol Last Admin: 10/20/17 21:37 Dose: 100 mls/hr Insulin Detemir (Levemir) 40 unit SC HS [facility] Last Admin: 10/20/17 23:10 Dose: 40 unit Insulin Human Regular (Humulin R Low) 0 units SC ACHS [facility] PRN Reason: Protocol Last Admin: 10/21/17 17:51 Dose: 3 units Levalbuterol HCl (Xopenex) 1.25 mg IH [id number] [facility] Last Admin: 10/21/17 14:13 Dose: 1.25 mg Levothyroxine Sodium (Synthroid) 100 mcg PO ACB [facility] Last Admin: 10/21/17 06:42 Dose: 100 mcg Lisinopril (Zestril) 10 mg PO DAILY [facility] Last Admin: 10/21/17 10:22 Dose: 10 mg Metformin HCl (Glucophage) 500 mg PO 0800,1700 [facility] Methylprednisolone (Solu-Medrol) 30 mg IVP Q12 [facility] Last Admin: 10/21/17 10:21 Dose: 30 mg Metoprolol Tartrate (Lopressor) 50 mg PO BID [facility] Last Admin: 10/21/17 18:13 Dose: 50 mg Pantoprazole Sodium (Protonix Ec Tab) 40 mg PO 0600 [facility] Last Admin: 10/21/17 06:41 Dose: 40 mg Pneumococcal Polyvalent Vaccine (Pneumovax 23 Vaccine) 0.5 ml IM .ONCE ONE Stop: 10/26/17 09:01 Verapamil HCl (Calan Tab) 40 mg PO TID [facility] Last Admin: 10/21/17 18:12 Dose: 40 mg - Labs Labs: 10/20/17 07:00 10/20/17 07:00 - Constitutional Appears: Non-toxic, No Acute Distress, Chronically Ill - Head Exam Head Exam: ATRAUMATIC, NORMOCEPHALIC - Eye Exam Eye Exam: EOMI, PERRL Pupil Exam: NORMAL ACCOMODATION, PERRL - ENT Exam ENT Exam: Mucous Membranes Moist, Normal External Ear Exam, TM's Normal Bilaterally - Neck Exam Neck Exam: Full ROM, Normal Inspection - Respiratory Exam Respiratory Exam: Clear to Ausculation Bilateral, NORMAL BREATHING PATTERN. absent: Rales, Rhonchi, Wheezes - Cardiovascular Exam Cardiovascular Exam: REGULAR RHYTHM, RRR, +S1, +S2 - GI/Abdominal Exam GI & Abdominal Exam: Soft, Normal Bowel Sounds. absent: Distended, Tenderness - Extremities Exam Extremities Exam: Full ROM, Normal Inspection - Neurological Exam Neurological Exam: Alert, Awake, CN II-XII Intact, Oriented x3 - Psychiatric Exam Psychiatric exam: Normal Affect, Normal Mood - Skin Skin Exam: Intact, Normal Color Assessment and Plan - Assessment and Plan (Free Text) Assessment: 72 yo male with respiratory distress at home. Presented with SOB and required intubation and ventilation once in the [facility] ER. Patient with significant leukocytosis and borderline fevers here at [facility]. Procalcitonin sent. On Cefepime, Vancomycin IV, and Azithromycin. Started on Tamiflu. CT scan showing RML/RLL consolidation/infiltrates. Current antibiotic regimen is reasonable start point. Procalcitonin results of 18.11. Flynn cultures sent. Patient with lactic acidosis and electrolyte abnormalities. Hyponatremia. Acute renal failure with GFR less than 20 and creatinine of 4.1 on admission. Extubated yesterday. Improving. Pneumonia with RLL infiltrate on chest x-ray. Was on Vancomycin IV, Azithromycin, and Cefepime for treatment. Most electrolyte abnormalities have normalized. Still elevated creatinine at 2.4. Urine cultures with gram negative rods identified as Proteus. On the whole improving rapidly. To complete on Cefepime for a total of 14 days. Stopped Azithromycin and IV Vancomycin. Stable today. Thank you for allowing me to participate in the care of the patient, we will follow with you.
[2017-10-21] MEDS: Cefepime 1gm in NS 100ml 1 GM/100 ML BAG IVPB SCH (21:56)
[2017-10-21] MEDS: Insulin Detemir 100 units/ml Vial (Levemir) SC SCH (21:58)
[2017-10-22] MEDS: Levalbuterol 1.25 MG/3 ML Inhal Soln UD IH SCH ×6 (03:00→21:55)
[2017-10-22] MEDS: Pantoprazole 40 mg EC Tab PO SCH (06:32)
[2017-10-22] MEDS: Insulin Reg-LOW-Coverage SC SCH ×4 (07:01→22:29)
[2017-10-22] MEDS: Levothyroxine 100 MCG TAB PO SCH (07:02)
[2017-10-22] MEDS: Budesonide 0.5 mg/2 ml Inhal Susp UD IH SCH ×2 (07:20→21:55)
[2017-10-22] MEDS: Arformoterol 15 mcg/2 ml Inh Sol IH SCH ×2 (07:20→21:54)
--- NOTE | 2017-10-22 07:44 | PN ---
DATE: 10/22/2017 PULMONARY NOTE SUBJECTIVE: The patient appears very comfortable this morning. He is not short of breath at rest. PHYSICAL EXAMINATION VITAL SIGNS: (Last noted in the computer): Temperature is 97.8, pulse is 60, respirations 18/20, blood pressure 133/56. Oxygen saturation on nasal cannula is 94%. HEENT: Normocephalic, atraumatic. No JVD. CARDIOVASCULAR: Systolic ejection murmur at the lower left sternal border. No S3 gallop. LUNGS: Decreased breath sounds at the bases with less crackles. Less rhonchi. No wheezing. EXTREMITIES: Positive for edema. No cyanosis, no clubbing. Calves are nontender to palpation. GI: Abdomen is soft, nontender and nondistended. Bowel sounds are positive. SKIN: No acute rash. NEUROLOGIC: Limited at the present time. IMPRESSION: 1. Status post respiratory failure. 2. Right lower lobe pneumonia. 3. Chronic obstructive pulmonary disease. 4. Acute bronchospasm. 5. Cardiac arrhythmias. PLAN: The patient appears very comfortable this morning. He is not short of breath at rest. He does state to feeling much better overall. I did discuss the case with the night nurse at length. The night nurse stated that the patient had a very good night. On physical exam, there is certainly less bronchospasm noted. In addition, the alveolar-arterial gradient is also much less. I will continue the current nebulizer treatments and low-dose intravenous steroids for now. The patient remains on antibiotic therapy - as per Infectious Disease. The temperatures have fully resolved. The leukocytosis has also fully resolved. I will order a chest x-ray for tomorrow - for followup. Clinical status of the patient is significantly improved. However, he does remain guarded overall. I will discuss the above with the attending physician. Umair Kauffman MD [facility]
--- NOTE | 2017-10-22 10:41 | PN ---
DATE: 10/22/2017 LOCATION: Room 313, bed 2. REASON FOR CONSULTATION AND FOLLOWUP: Atrial fibrillation, exacerbation of COPD, status post respiratory failure, status post successful extubation, and deconditioning. SUBJECTIVE: The patient denies any chest pain or palpitation. His breathing is much better. He is lying flat in bed without any cardiac symptoms. PHYSICAL EXAMINATION: VITAL SIGNS: Blood pressure 133/56, respirations 20, pulse 60, and temperature 97.8. HEENT: Head is normocephalic. Eyes: Pupils normal. Conjunctivae slightly pale. NECK: JVP low. Carotids equal. THORAX: AP diameter normal. LUNGS: No rales. CARDIOVASCULAR: S1 and S2. ABDOMEN: Soft, nontender. No organomegaly. Bowel sounds normal. EXTREMITIES: No clubbing. No cyanosis. LABORATORY DATA: WBC 9.1, hemoglobin 12.2, hematocrit 36.5, and platelets 114. Sugar 232, sodium 138, potassium 4.5, BUN 61, creatinine 1.8, calcium 7.4, AST 66, and ALT 99. Total protein 6.1, albumin also low at 2.7. DIAGNOSES: Exacerbation of chronic obstructive pulmonary disease, status post respiratory failure, status post intubation and then successful extubation; respiratory tract infection; pneumonia; atrial fibrillation with rapid rate, now the rate is controlled; history of coronary artery disease, details are not known; deconditioning. PLAN: We will continue present therapy with hydralazine 25 mg t.i.d., Eliquis 2.5 b.i.d., metoprolol 50 b.i.d., methylprednisolone 30 mg IV q. 12 hours, Synthroid 100 mcg p.o. daily, lisinopril 10 daily. We will change verapamil 40 t.i.d. to verapamil long acting, which will be Calan SR 120 mg p.o. daily and we will continue physical therapy. We will follow with you. Josue Mathur MD
[2017-10-22] MEDS: Verapamil 120 mg ER Tab PO SCH (11:00)
[2017-10-22] MEDS: MethylPREDNISolone 40 mg Vial IVP SCH ×2 (11:00→22:08)
--- NOTE | 2017-10-22 17:59 | CP.PCM.PN ---
Subjective - Date & Time of Evaluation Date of Evaluation: 10/22/17 Time of Evaluation: 17:45 - Subjective Subjective: Infectious Disease Follow Up: October 22, 2017 72 yo male presenting with SOB and respiratory distress at home. When entering through the ER, the patient was started on BiPAP and given Lasix. 15 minutes afterwards, the patient had worsening SOB and required intubation. Influenza testing was negative. Multiple electrolyte abnormalities especially hyponatremia and elevated creatinine. Patient is acidotic as well. Most of the information taken from the patient's chart. As the patient is intubated and ventilated now, unable to ask the patient any additional questions. The patient has no recent previous hospitalizations (last hospitalization in 2012). Procalcitonin up to 18.11. Extubated yesterday and appears to be doing well. Off BiPAP. WBC has dropped dramatically to 12.9. Most of his electrolyte abnormalities have improved. However, creatinine still remains high. Urine cultures showing gram negative elan identified as Proteus. Sensitive to Cefepime. Currently on Cefepime and Vancomycin. Creatinine slowly improving. Overall improving. Tachycardia improved. Patient is more awake and alert. Had Difficulty weaning from BiPAP. Verapamil added given difficulty in controlling heart rate. On the whole, the patient is improved compared to admission. Appears to be tolerating with out BiPAP. Transferred to medical floor last night. Patient states that he feels pretty good this morning. Patient will continue on Cefepime alone at this point to complete 14 days in total. Still mild SOB even while laying in bed but this is still better than on admission. Objective - Vital Signs/Intake and Output Vital Signs (last 24 hours): Temp Pulse Resp BP Pulse Ox 97.4 F L 57 L 18 134/63 94 L 10/22/17 10:00 10/22/17 17:17 10/22/17 10:00 10/22/17 17:17 10/22/17 13:12 - Medications Medications: Current Medications Apixaban (Eliquis) 2.5 mg PO BID [facility] PRN Reason: Protocol Last Admin: 10/22/17 17:17 Dose: 2.5 mg Arformoterol Tartrate (Brovana) 15 mcg IH [id number] [facility] Last Admin: 10/22/17 07:20 Dose: 15 mcg Budesonide (Pulmicort Respules) 0.5 mg IH [id number] [facility] Last Admin: 10/22/17 07:20 Dose: 0.5 mg Glyburide (Micronase) 5 mg PO 0800,1700 [facility] Last Admin: 10/22/17 17:16 Dose: 5 mg Hydralazine HCl (Apresoline) 25 mg PO TID [facility] Last Admin: 10/22/17 17:17 Dose: 25 mg Cefepime HCl (Maxipime 1gm) 1 gm in 100 mls @ 100 mls/hr IVPB Q24H [facility] PRN Reason: Protocol Stop: 10/24/17 22:01 Last Admin: 10/21/17 21:56 Dose: 100 mls/hr Insulin Detemir (Levemir) 40 unit SC HS [facility] Last Admin: 10/21/17 21:58 Dose: 40 unit Insulin Human Regular (Humulin R Low) 0 units SC ACHS [facility] PRN Reason: Protocol Last Admin: 10/22/17 17:16 Dose: 1 units Levalbuterol HCl (Xopenex) 1.25 mg IH [id number] [facility] Last Admin: 10/22/17 13:42 Dose: 1.25 mg Levothyroxine Sodium (Synthroid) 100 mcg PO ACB [facility] Last Admin: 10/22/17 07:02 Dose: 100 mcg Lisinopril (Zestril) 10 mg PO DAILY [facility] Last Admin: 10/22/17 11:49 Dose: 10 mg Methylprednisolone (Solu-Medrol) 30 mg IVP Q12 [facility] Last Admin: 10/22/17 11:00 Dose: 30 mg Metoprolol Tartrate (Lopressor) 50 mg PO BID [facility] Last Admin: 10/22/17 17:17 Dose: Not Given Pantoprazole Sodium (Protonix Ec Tab) 40 mg PO 0600 [facility] Last Admin: 10/22/17 06:32 Dose: 40 mg Pneumococcal Polyvalent Vaccine (Pneumovax 23 Vaccine) 0.5 ml IM .ONCE ONE Stop: 10/26/17 09:01 Verapamil HCl (Calan Sr Tab) 120 mg PO DAILY [facility] Last Admin: 10/22/17 11:00 Dose: 120 mg - Labs Labs: 10/20/17 07:00 10/20/17 07:00 - Constitutional Appears: Non-toxic, No Acute Distress, Chronically Ill - Head Exam Head Exam: ATRAUMATIC, NORMOCEPHALIC - Eye Exam Eye Exam: EOMI, PERRL Pupil Exam: NORMAL ACCOMODATION, PERRL - ENT Exam ENT Exam: Mucous Membranes Moist, Normal External Ear Exam, TM's Normal Bilaterally - Neck Exam Neck Exam: Full ROM, Normal Inspection - Respiratory Exam Respiratory Exam: Clear to Ausculation Bilateral, NORMAL BREATHING PATTERN. absent: Rales, Rhonchi, Wheezes - Cardiovascular Exam Cardiovascular Exam: REGULAR RHYTHM, RRR, +S1, +S2 - GI/Abdominal Exam GI & Abdominal Exam: Soft, Normal Bowel Sounds. absent: Distended, Tenderness - Extremities Exam Extremities Exam: Full ROM, Normal Inspection - Neurological Exam Neurological Exam: Alert, Awake, CN II-XII Intact, Oriented x3 - Psychiatric Exam Psychiatric exam: Normal Affect, Normal Mood - Skin Skin Exam: Intact, Normal Color Assessment and Plan - Assessment and Plan (Free Text) Assessment: 72 yo male with respiratory distress at home. Presented with SOB and required intubation and ventilation once in the [facility] ER. Patient with significant leukocytosis and borderline fevers here at [facility]. Procalcitonin sent. On Cefepime, Vancomycin IV, and Azithromycin. Started on Tamiflu. CT scan showing RML/RLL consolidation/infiltrates. Current antibiotic regimen is reasonable start point. Procalcitonin results of 18.11. Flynn cultures sent. Patient with lactic acidosis and electrolyte abnormalities. Hyponatremia. Acute renal failure with GFR less than 20 and creatinine of 4.1 on admission. Extubated yesterday. Improving. Pneumonia with RLL infiltrate on chest x-ray. Was on Vancomycin IV, Azithromycin, and Cefepime for treatment. Most electrolyte abnormalities have normalized. Still elevated creatinine at 2.4. Urine cultures with gram negative rods identified as Proteus. On the whole improving. To complete on Cefepime for a total of 14 days. Stopped Azithromycin and IV Vancomycin. Stable today. In much less respiratory distress compared to admission. Thank you for allowing me to participate in the care of the patient, we will follow with you.
[2017-10-22] MEDS: Cefepime 1gm in NS 100ml 1 GM/100 ML BAG IVPB SCH (22:07)
[2017-10-22] MEDS: Insulin Detemir 100 units/ml Vial (Levemir) SC SCH (22:28)
[2017-10-23] MEDS: Levalbuterol 1.25 MG/3 ML Inhal Soln UD IH SCH ×4 (03:15→19:26)
[2017-10-23] MEDS: Levothyroxine 100 MCG TAB PO SCH ×2 (06:04→07:54)
[2017-10-23] MEDS: Pantoprazole 40 mg EC Tab PO SCH (06:04)
[2017-10-23] MEDS: Arformoterol 15 mcg/2 ml Inh Sol IH SCH ×2 (07:23→19:26)
[2017-10-23] MEDS: Budesonide 0.5 mg/2 ml Inhal Susp UD IH SCH ×2 (07:23→19:26)
[2017-10-23] MEDS: Insulin Reg-LOW-Coverage SC SCH ×4 (07:42→21:45)
--- NOTE | 2017-10-23 08:16 | PN ---
DATE: 10/23/2017 PULMONARY NOTE SUBJECTIVE: The patient appears comfortable this morning. He is not short of breath at rest. PHYSICAL EXAMINATION VITAL SIGNS: Temperature 97.6, pulse 69, respirations 18/20, blood pressure 178/73. Oxygen saturation on nasal cannula is 98%. HEENT: Normocephalic, atraumatic. No JVD. CARDIOVASCULAR: Systolic ejection murmur at the lower left sternal border. No S3 gallop. LUNGS: Decreased breath sounds at the bases with less crackles. Less rhonchi. No wheezing. EXTREMITIES: Positive for edema. No cyanosis, no clubbing. Calves are nontender to palpation. GI: Abdomen is soft, nontender and nondistended. Bowel sounds are positive. SKIN: No acute rash. NEUROLOGIC: Limited at the present time. IMPRESSION: 1. Status post respiratory failure. 2. Right lower lobe pneumonia. 3. Chronic obstructive pulmonary disease. 4. Acute bronchospasm. 5. Cardiac arrhythmias. PLAN: The patient appears very comfortable this morning. He is not short of breath at rest. He does state to feeling much better overall. On physical exam, there is less bronchospasm noted. In addition, the oxygen saturation on nasal cannula is now 98%. I will continue the current nebulizer treatments and decrease the intravenous steroids this morning. The patient remains on antibiotic therapy - as per Infectious Disease. Input by Dr. Azul is noted. The temperatures have fully resolved. The leukocytosis has also fully resolved. I have also ordered a repeat chest x-ray - for today - for comparison. I will check that when feasible. Clinical status of the patient is significantly improved. However, he does remain guarded overall. The patient is reminded to be out of bed as much as possible. I will discuss the above with the attending physician. Umair Kauffman MD [facility]
[2017-10-23] MEDS: Verapamil 120 mg ER Tab PO SCH (09:54)
[2017-10-23] MEDS: MethylPREDNISolone 40 mg Vial IVP SCH ×2 (09:55→21:47)
--- NOTE | 2017-10-23 10:04 | RAD ---
HISTORY: follow up COMPARISON: 10/19/2017 FINDINGS: LUNGS: There is a persistent infiltrate at the right lower lobe showing some improvement PLEURA: No significant pleural effusion identified, no pneumothorax apparent. CARDIOVASCULAR: Normal. OSSEOUS STRUCTURES: No significant abnormalities. VISUALIZED UPPER ABDOMEN: Normal. OTHER FINDINGS: None. IMPRESSION: Improving right lower lobe infiltrate
--- NOTE | 2017-10-23 16:49 | PN ---
DATE: 10/23/2017 REASON FOR CONSULTATION AND FOLLOWUP: Atrial fibrillation, exacerbation of COPD, status post respiratory failure, status post successful extubation, deconditioning of body, now in transitional care unit for the continuity of care. SUBJECTIVE: The patient denies any chest pain, shortness of breath, or any palpitation. OBJECTIVE: GENERAL: Not in any apparent distress. VITAL SIGNS: Temperature afebrile, heart rate 72, blood pressure 150/66. HEENT: PERRLA, intact. NECK: Supple. No carotid bruit. No thyromegaly. CHEST: Clear to auscultation. HEART: S1 and S2, regular. ABDOMEN: Soft. EXTREMITIES: Clubbing and cyanosis negative. LABORATORY DATA: Blood workup as follows: WBC 9.1, hemoglobin 12.2, hematocrit 36.5, platelet count 114. Chemistry shows sodium 130, potassium 4.5, chloride 106, carbon dioxide 20, anion gap of 14. BUN 61, creatinine 1.8 as of 10/20/2017. IMPRESSOIN: Acute kidney injury on chronic renal insufficiency, paroxysmal atrial fibrillation, respiratory failure, obesity, chronic obstructive pulmonary disease, sepsis, respiratory failure, status post intubated, successfully extubated. Most recent echo shows calculated ejection fraction 55%, right ventricular systolic pressure 23. No mitral regurgitation. No tricuspid regurgitation. History of coronary artery disease in the past, obesity. RECOMMENDATION: Now, the patient is in transitional care unit. Continue care in transitional care unit. Continue hydralazine. Avoid nephrotoxic medications. Continue Eliquis 2.5 b.i.d. Continue metoprolol. Continue Synthroid. Verapamil has been changed to long-acting Calan. We will follow with you. Thank you Dr. Ramon for providing us the opportunity in taking care of Nii Scott. We will follow with you. CVS status is stable. Avoid nephrotoxic medication. Repeat the blood workup in a day or two. Continue rehab. Josue Foster MD
--- NOTE | 2017-10-23 18:57 | CP.PCM.PN ---
Subjective - Date & Time of Evaluation Date of Evaluation: 10/23/17 Time of Evaluation: 18:30 - Subjective Subjective: Infectious Disease Follow Up: October 23, 2017 72 yo male presenting with SOB and respiratory distress at home. When entering through the ER, the patient was started on BiPAP and given Lasix. 15 minutes afterwards, the patient had worsening SOB and required intubation. Influenza testing was negative. Multiple electrolyte abnormalities especially hyponatremia and elevated creatinine. Patient is acidotic as well. Most of the information taken from the patient's chart. As the patient is intubated and ventilated now, unable to ask the patient any additional questions. The patient has no recent previous hospitalizations (last hospitalization in 2012). Procalcitonin up to 18.11. Extubated yesterday and appears to be doing well. Off BiPAP. WBC has dropped dramatically to 12.9. Most of his electrolyte abnormalities have improved. However, creatinine still remains high. Urine cultures showing gram negative elan identified as Proteus. Sensitive to Cefepime. Currently on Cefepime and Vancomycin. Creatinine slowly improving. Overall improving. Tachycardia improved. Patient is more awake and alert. Had Difficulty weaning from BiPAP. Verapamil added given difficulty in controlling heart rate. On the whole, the patient is improved compared to admission. Appears to be tolerating with out BiPAP. Transferred to medical floor last night. Patient states that he feels pretty good this morning. Patient will continue on Cefepime alone at this point to complete 14 days in total. Still mild SOB even while laying in bed but this is still better than on admission. Objective - Vital Signs/Intake and Output Vital Signs (last 24 hours): Temp Pulse Resp BP Pulse Ox 97.7 F 59 L 20 124/51 L 92 L 10/23/17 17:41 10/23/17 18:24 10/23/17 17:41 10/23/17 18:24 10/23/17 17:41 - Medications Medications: Current Medications Apixaban (Eliquis) 2.5 mg PO BID [facility] PRN Reason: Protocol Last Admin: 10/23/17 18:24 Dose: 2.5 mg Arformoterol Tartrate (Brovana) 15 mcg IH [id number] [facility] Last Admin: 10/23/17 07:23 Dose: 15 mcg Budesonide (Pulmicort Respules) 0.5 mg IH [id number] [facility] Last Admin: 10/23/17 07:23 Dose: 0.5 mg Glyburide (Micronase) 5 mg PO 0800,1700 [facility] Last Admin: 10/23/17 18:23 Dose: 5 mg Hydralazine HCl (Apresoline) 25 mg PO TID [facility] Last Admin: 10/23/17 18:24 Dose: 25 mg Cefepime HCl (Maxipime 1gm) 1 gm in 100 mls @ 100 mls/hr IVPB Q24H [facility] PRN Reason: Protocol Stop: 10/24/17 22:01 Last Admin: 10/22/17 22:07 Dose: 100 mls/hr Insulin Detemir (Levemir) 40 unit SC HS [facility] Last Admin: 10/22/17 22:28 Dose: 40 unit Insulin Human Regular (Humulin R Low) 0 units SC ACHS [facility] PRN Reason: Protocol Last Admin: 10/23/17 15:15 Dose: 3 units Levalbuterol HCl (Xopenex) 1.25 mg IH [id number] [facility] Last Admin: 10/23/17 13:12 Dose: 1.25 mg Levothyroxine Sodium (Synthroid) 100 mcg PO ACB [facility] Last Admin: 10/23/17 07:54 Dose: 100 mcg Lisinopril (Zestril) 10 mg PO DAILY [facility] Last Admin: 10/23/17 09:55 Dose: 10 mg Methylprednisolone (Solu-Medrol) 20 mg IVP Q12 [facility] Last Admin: 10/23/17 09:55 Dose: 20 mg Metoprolol Tartrate (Lopressor) 50 mg PO BID [facility] Last Admin: 10/23/17 18:24 Dose: Not Given Pantoprazole Sodium (Protonix Ec Tab) 40 mg PO 0600 [facility] Last Admin: 10/23/17 06:04 Dose: 40 mg Pneumococcal Polyvalent Vaccine (Pneumovax 23 Vaccine) 0.5 ml IM .ONCE ONE Stop: 10/26/17 09:01 Verapamil HCl (Calan Sr Tab) 120 mg PO DAILY [facility] Last Admin: 10/23/17 09:54 Dose: 120 mg - Labs Labs: 10/20/17 07:00 10/20/17 07:00 - Constitutional Appears: Non-toxic, No Acute Distress, Chronically Ill - Head Exam Head Exam: ATRAUMATIC, NORMOCEPHALIC - Eye Exam Eye Exam: EOMI, PERRL Pupil Exam: NORMAL ACCOMODATION, PERRL - ENT Exam ENT Exam: Mucous Membranes Moist, Normal External Ear Exam, TM's Normal Bilaterally - Neck Exam Neck Exam: Full ROM, Normal Inspection - Respiratory Exam Respiratory Exam: Clear to Ausculation Bilateral, NORMAL BREATHING PATTERN. absent: Rales, Rhonchi, Wheezes - Cardiovascular Exam Cardiovascular Exam: REGULAR RHYTHM, RRR, +S1, +S2 - GI/Abdominal Exam GI & Abdominal Exam: Soft, Normal Bowel Sounds. absent: Distended, Tenderness - Extremities Exam Extremities Exam: Full ROM, Normal Inspection - Neurological Exam Neurological Exam: Alert, Awake, CN II-XII Intact, Oriented x3 - Psychiatric Exam Psychiatric exam: Normal Affect, Normal Mood - Skin Skin Exam: Intact, Normal Color Assessment and Plan - Assessment and Plan (Free Text) Assessment: 72 yo male with respiratory distress at home. Presented with SOB and required intubation and ventilation once in [place] [facility] [place] Patient with significant leukocytosis and borderline fevers here [place] [facility] Procalcitonin sent. On Cefepime, Vancomycin IV, and Azithromycin. Started on Tamiflu. CT scan showing RML/RLL consolidation/infiltrates. Current antibiotic regimen is reasonable start point. Procalcitonin results of 18.11. Flynn cultures sent. Patient with lactic acidosis and electrolyte abnormalities. Hyponatremia. Acute renal failure with GFR less than 20 and creatinine of 4.1 on admission. Extubated yesterday. Improving. Pneumonia with RLL infiltrate on chest x-ray. Was on Vancomycin IV, Azithromycin, and Cefepime for treatment. Most electrolyte abnormalities have normalized. Still elevated creatinine at 2.4. Urine cultures with gram negative rods identified as Proteus. On the whole improving. To complete on Cefepime for a total of 14 days. Stopped Azithromycin and IV Vancomycin. Stable today. In much less respiratory distress compared to admission. Repeat chest X-ray on 10/23/2017 showing improving right lung infiltrate. Thank you for allowing me to participate in the care of the patient, we will follow with you.
[2017-10-23] MEDS: Insulin Detemir 100 units/ml Vial (Levemir) SC SCH (21:45)
[2017-10-23] MEDS: Cefepime 1gm in NS 100ml 1 GM/100 ML BAG IVPB SCH (21:46)
[2017-10-24] MEDS: Levalbuterol 1.25 MG/3 ML Inhal Soln UD IH SCH ×4 (01:49→20:29)
[2017-10-24] MEDS: Levothyroxine 100 MCG TAB PO SCH (06:09)
[2017-10-24] MEDS: Pantoprazole 40 mg EC Tab PO SCH (06:09)
[2017-10-24] MEDS: Insulin Reg-LOW-Coverage SC SCH ×4 (06:44→22:11)
[2017-10-24 06:49] LABS: EOS # 0.1 (0.0-0.7); EOS % 1.3 % (1.5-5.0); GRAN # 7.26 (1.4-6.5); GRAN % 83.1 % (50.0-68.0); HEMOGLOBIN 11.4 g/dL (14.0-18.0); LYMPH # 0.5 (1.2-3.4); MEAN CELL VOLUME 100.6 fl (80.0-105.0); MEAN CORPUSCULAR HEMOGLOBIN 33.5 pg (25.0-35.0); MEAN CORPUSCULAR HGB CONC 33.3 g/dl (31.0-37.0); MEAN PLATELET VOLUME 12.6 fl (7.0-11.0); MONO # 0.8 (0.1-0.6); MONO % 9.6 % (1.0-6.0); RBC 3.4 10^6/uL (3.5-6.1); RED CELL DISTRIBUTION WIDTH 14.4 % (11.5-14.5); WHITE BLOOD COUNT 8.7 10^3/ul (4.5-11.0)
[2017-10-24 06:56] LABS: ALB/GLOB RATIO 0.8 (1.1-1.8); ALBUMIN 2.6 g/dL (3.0-4.8); CALCIUM 7.9 mg/dL (8.4-10.5)
[2017-10-24] MEDS: Arformoterol 15 mcg/2 ml Inh Sol IH SCH ×2 (07:27→20:29)
[2017-10-24] MEDS: Budesonide 0.5 mg/2 ml Inhal Susp UD IH SCH ×2 (07:27→20:29)
--- NOTE | 2017-10-24 08:52 | PN ---
DATE: 10/24/2017 PULMONARY NOTE SUBJECTIVE: The patient appears very comfortable this morning. He is not short of breath at rest. PHYSICAL EXAMINATION VITAL SIGNS: Temperature is 97.7, pulse is 70, respirations 18, blood pressure 124/51. Oxygen saturation on nasal cannula is 95%. HEENT: Normocephalic, atraumatic. No JVD. CARDIOVASCULAR: Systolic ejection murmur at the lower left sternal border. No S3 gallop. LUNGS: Better breath sounds at the bases with less crackles. Much less rhonchi. No wheezing. EXTREMITIES: Positive for edema. No cyanosis, no clubbing. Calves are nontender to palpation. GI: Abdomen is soft, nontender and nondistended. Bowel sounds are positive. SKIN: No acute rash. NEUROLOGIC: Limited at the present time. PERTINENT LABORATORY DATA: Chest x-ray was repeated yesterday and reviewed. The chest x-ray continues to improve with a decrease in the right lower lobe infiltrate. IMPRESSION: 1. Status post respiratory failure. 2. Right lower lobe pneumonia. 3. Chronic obstructive pulmonary disease. 4. Acute bronchospasm. 5. Cardiac arrhythmias. PLAN: The patient appears very comfortable this morning. He is not short of breath at rest. He does state to feeling much better overall. I did discuss the case with the night nurse at length. The night nurse stated that the patient is doing very well overall. On physical exam, there is certainly less bronchospasm noted. In addition, the alveolar-arterial gradient is also much less. I will continue the current nebulizer treatments and low-dose intravenous steroids (decreased yesterday) for now. As above, I did review the chest x-ray last done. Continued improvement is noted. Clinical status of the patient is significantly improved overall. The patient is reminded to be out of bed as much as possible. I will discuss the above with Dr. Ramon. Umair Kauffman MD [facility]
[2017-10-24] MEDS: Verapamil 120 mg ER Tab PO SCH (09:35)
[2017-10-24] MEDS: MethylPREDNISolone 40 mg Vial IVP SCH ×2 (09:36→22:14)
--- NOTE | 2017-10-24 13:56 | PN ---
DATE: 10/24/2017 LOCATION: Patient is in room 313, bed 2. REASON FOR CONSULTATION AND FOLLOWUP: Atrial fibrillation, exacerbation of COPD, status post respiratory failure, status post successful extubation, deconditioning. Patient is on transitional care unit for continuity of the care. SUBJECTIVE: The patient is lying flat in bed without any chest pain, shortness of breath, or palpitation. The patient is getting physical therapy. Denies any symptoms during performing physical therapy. PHYSICAL EXAMINATION: VITAL SIGNS: Blood pressure 133/56, respirations 20, pulse 59, temperature 97.7. HEENT: Head is normocephalic. Eyes: Pupils normal. Conjunctivae slightly pale. NECK: JVP low. Carotids equal. THORAX: AP diameter normal. LUNGS: No significant rales. CARDIOVASCULAR: S1 and S2. ABDOMEN: Protuberant. No organomegaly. EXTREMITIES: No clubbing. No cyanosis. LABORATORY DATA: WBC 8.7, hemoglobin 11.4, hematocrit 34.2, and platelets 185. Sodium 138, potassium 4.6. BUN 49, creatinine 1.8. Glucose 179. Calcium 7.9. Total protein 5.6, albumin 2.6. DIAGNOSES: Acute kidney injury on chronic renal insufficiency; paroxysmal atrial fibrillation; respiratory failure, status post intubation, status post successful extubation; obesity; chronic obstructive pulmonary disease; sepsis; and pneumonia. Echo findings described in our previous progress notes. Chest x-ray repeated on 10/23/2017, showed there is persistent infiltrate in the right lower lobe showing some improvement. PLAN: The patient is getting physical therapy for deconditioning. Continue present therapy with hydralazine 25 t.i.d., verapamil (Calan SR) 120 p.o. daily, Eliquis 2.5 b.i.d., metoprolol tartarate 50 b.i.d., cefepime 1 g IV q. 24 hours, glyburide 5 mg p.o. b.i.d., Protonix 40 daily, Solu-Medrol 20 mg IV q.12 hours, Synthroid 100 mcg daily, lisinopril 10 mg daily. We will continue present therapy. We will follow. Josue Mathur MD
--- NOTE | 2017-10-24 14:09 | CP.PCM.PN ---
Subjective - Date & Time of Evaluation Date of Evaluation: 10/24/17 Time of Evaluation: 13:30 - Subjective Subjective: Infectious Disease Follow Up: October 24, 2017 72 yo male presenting with SOB and respiratory distress at home. When entering through the ER, the patient was started on BiPAP and given Lasix. 15 minutes afterwards, the patient had worsening SOB and required intubation. Influenza testing was negative. Multiple electrolyte abnormalities especially hyponatremia and elevated creatinine. Patient is acidotic as well. Most of the information taken from the patient's chart. As the patient is intubated and ventilated now, unable to ask the patient any additional questions. The patient has no recent previous hospitalizations (last hospitalization in 2012). Procalcitonin up to 18.11. Extubated yesterday and appears to be doing well. Off BiPAP. WBC has dropped dramatically to 12.9. Most of his electrolyte abnormalities have improved. However, creatinine still remains high. Urine cultures showing gram negative elan identified as Proteus. Sensitive to Cefepime. Currently on Cefepime and Vancomycin. Creatinine slowly improving. Overall improving. Tachycardia improved. Patient is more awake and alert. Had Difficulty weaning from BiPAP. Verapamil added given difficulty in controlling heart rate. On the whole, the patient is improved compared to admission. Appears to be tolerating with out BiPAP. Patient states that he feels pretty good this morning. Patient will continue on Cefepime alone at this point to complete 14 days in total. Appears comfortable. Does not appear short of breath at this time. Objective - Vital Signs/Intake and Output Vital Signs (last 24 hours): Temp Pulse Resp BP Pulse Ox 97.7 F 59 L 20 133/56 L 92 L 10/23/17 17:41 10/23/17 18:24 10/23/17 17:41 10/24/17 09:34 10/23/17 17:41 Intake and Output: 10/24/17 10/24/17 06:59 18:59 Output Total 1400 Balance -1400 - Medications Medications: Current Medications Apixaban (Eliquis) 2.5 mg PO BID [facility] PRN Reason: Protocol Last Admin: 10/24/17 09:34 Dose: 2.5 mg Arformoterol Tartrate (Brovana) 15 mcg IH [id number] [facility] Last Admin: 10/24/17 07:27 Dose: 15 mcg Budesonide (Pulmicort Respules) 0.5 mg IH [id number] [facility] Last Admin: 10/24/17 07:27 Dose: 0.5 mg Glyburide (Micronase) 5 mg PO 0800,1700 [facility] Last Admin: 10/24/17 09:36 Dose: 5 mg Hydralazine HCl (Apresoline) 25 mg PO TID [facility] Last Admin: 10/24/17 09:34 Dose: 25 mg Cefepime HCl (Maxipime 1gm) 1 gm in 100 mls @ 100 mls/hr IVPB Q24H [facility] PRN Reason: Protocol Stop: 10/24/17 22:01 Last Admin: 10/23/17 21:46 Dose: 100 mls/hr Insulin Detemir (Levemir) 40 unit SC HS [facility] Last Admin: 10/23/17 21:45 Dose: 40 unit Insulin Human Regular (Humulin R Low) 0 units SC ACHS [facility] PRN Reason: Protocol Last Admin: 10/24/17 11:29 Dose: 3 units Levalbuterol HCl (Xopenex) 1.25 mg IH [id number] [facility] Last Admin: 10/24/17 13:28 Dose: 1.25 mg Levothyroxine Sodium (Synthroid) 100 mcg PO 0600 [facility] Last Admin: 10/24/17 06:09 Dose: 100 mcg Lisinopril (Zestril) 10 mg PO DAILY [facility] Last Admin: 10/24/17 09:35 Dose: 10 mg Methylprednisolone (Solu-Medrol) 20 mg IVP Q12 [facility] Last Admin: 10/24/17 09:36 Dose: 20 mg Metoprolol Tartrate (Lopressor) 50 mg PO BID [facility] Last Admin: 10/24/17 09:35 Dose: 50 mg Pantoprazole Sodium (Protonix Ec Tab) 40 mg PO 0600 [facility] Last Admin: 10/24/17 06:09 Dose: 40 mg Pneumococcal Polyvalent Vaccine (Pneumovax 23 Vaccine) 0.5 ml IM .ONCE ONE Stop: 10/26/17 09:01 Verapamil HCl (Calan Sr Tab) 120 mg PO DAILY [facility] Last Admin: 10/24/17 09:35 Dose: 120 mg - Labs Labs: 10/24/17 05:40 10/24/17 05:40 - Constitutional Appears: Non-toxic, No Acute Distress, Chronically Ill - Head Exam Head Exam: ATRAUMATIC, NORMOCEPHALIC - Eye Exam Eye Exam: EOMI, PERRL Pupil Exam: NORMAL ACCOMODATION, PERRL - ENT Exam ENT Exam: Mucous Membranes Moist, Normal External Ear Exam, TM's Normal Bilaterally - Neck Exam Neck Exam: Full ROM, Normal Inspection - Respiratory Exam Respiratory Exam: Clear to Ausculation Bilateral, NORMAL BREATHING PATTERN. absent: Rales, Rhonchi, Wheezes - Cardiovascular Exam Cardiovascular Exam: REGULAR RHYTHM, RRR, +S1, +S2 - GI/Abdominal Exam GI & Abdominal Exam: Soft, Normal Bowel Sounds. absent: Distended, Tenderness - Extremities Exam Extremities Exam: Full ROM, Normal Inspection - Neurological Exam Neurological Exam: Alert, Awake, CN II-XII Intact, Oriented x3 - Psychiatric Exam Psychiatric exam: Normal Affect, Normal Mood - Skin Skin Exam: Intact, Normal Color Assessment and Plan - Assessment and Plan (Free Text) Assessment: 72 yo male with respiratory distress at home. Presented with SOB and required intubation and ventilation once in the [facility] ER. Patient with significant leukocytosis and borderline fevers here at [facility]. Procalcitonin sent. On Cefepime, Vancomycin IV, and Azithromycin. Started on Tamiflu. CT scan showing RML/RLL consolidation/infiltrates. Current antibiotic regimen is reasonable start point. Procalcitonin results of 18.11. Flynn cultures sent. Patient with lactic acidosis and electrolyte abnormalities. Hyponatremia. Acute renal failure with GFR less than 20 and creatinine of 4.1 on admission. Extubated yesterday. Improving. Pneumonia with RLL infiltrate on chest x-ray. Was on Vancomycin IV, Azithromycin, and Cefepime for treatment. Most electrolyte abnormalities have normalized. Still elevated creatinine at 1.8. Urine cultures with gram negative rods identified as Proteus. On the whole improving. To complete on Cefepime for a total of 14 days. Stopped Azithromycin and IV Vancomycin. Stable today. In much less respiratory distress compared to admission. No SOB noted today. Repeat chest X-ray on 10/23/2017 showing improving right lung infiltrate. Overall, patient doing well. Thank you for allowing me to participate in the care of the patient, we will follow with you.
[2017-10-24] MEDS: Insulin Detemir 100 units/ml Vial (Levemir) SC SCH (22:11)
[2017-10-24] MEDS: Cefepime 1gm in NS 100ml 1 GM/100 ML BAG IVPB SCH (22:14)
[2017-10-25] MEDS: Levalbuterol 1.25 MG/3 ML Inhal Soln UD IH SCH ×4 (02:14→19:23)
[2017-10-25] MEDS: Levothyroxine 100 MCG TAB PO SCH (05:44)
[2017-10-25] MEDS: Pantoprazole 40 mg EC Tab PO SCH (05:44)
[2017-10-25] MEDS ORDERED: Levothyroxine 100 MCG TAB PO SCH (06:00)
[2017-10-25] MEDS: Insulin Reg-LOW-Coverage SC SCH ×4 (06:49→22:00)
[2017-10-25] MEDS: Arformoterol 15 mcg/2 ml Inh Sol IH SCH ×2 (07:26→19:23)
[2017-10-25] MEDS: Budesonide 0.5 mg/2 ml Inhal Susp UD IH SCH ×2 (07:26→19:23)
[2017-10-25] MEDS: Verapamil 120 mg ER Tab PO SCH (09:27)
[2017-10-25] MEDS: MethylPREDNISolone 40 mg Vial IVP SCH ×2 (12:01→22:02)
--- NOTE | 2017-10-25 12:23 | PN ---
DATE: 10/25/2017 PULMONARY NOTE SUBJECTIVE: The patient appears quite comfortable this morning. He is not short of breath at rest. OBJECTIVE VITAL SIGNS (last noted in the computer): Temperature is 98.4, pulse 67, respirations 18, blood pressure 147/56. Oxygen saturation on nasal cannula is between 94% and 100%. HEENT: Normocephalic, atraumatic. No JVD. CARDIOVASCULAR: Systolic ejection murmur at the lower left sternal border. No S3 gallop. LUNGS: Minimal crackles at the bases. Minimal rhonchi. No wheezing. EXTREMITIES: Positive for edema. No cyanosis, no clubbing. Calves are nontender to palpation. GASTROINTESTINAL: Abdomen is soft, nontender, nondistended. Bowel sounds are positive. SKIN: No acute rash. NEUROLOGIC: Exam limited at the present time. IMPRESSION 1. Status post respiratory failure. 2. Right lower lobe pneumonia. 3. Chronic obstructive pulmonary disease. 4. Acute bronchospasm. 5. Cardiac arrhythmias. PLAN: The patient appears very comfortable this morning. He is not short of breath at rest. He does state to feeling much better overall. I did discuss the case with the night nurse at length. The night nurse stated that the patient had a very good night. On physical exam, his bronchospasm is significantly less. In addition, the alveolar-arterial gradient is also significantly less. I will continue with the current nebulizer treatments and low-dose intravenous steroids for now. The patient is now off antibiotic therapy - as per Infectious Disease. Input by Dr. Azul is noted. Input by Cardiology is also noted. Clinical status of the patient is significantly improved. I will discuss the above the attending physician. Umair Kauffman MD [facility]
--- NOTE | 2017-10-25 16:22 | PN ---
DATE: CONSULTING PHYSICIAN: Josue Foster M.D. REASON FOR CONSULTATION: Followup atrial fibrillation, exacerbation of COPD status post respiratory failure, status post successfully extubation, deconditioning of the body, currently in transitional care unit. PHYSICAL EXAMINATION: As follows: VITAL SIGNS: Temperature afebrile, heart rate 50, blood pressure 150/62. HEENT: PERRLA. Extraocular muscles intact. NECK: Supple. No carotid bruits or thyromegaly. CHEST: Clear to auscultation. HEART: S1 and S2 regular. ABDOMEN: Soft. EXTREMITIES: Clubbing and cyanosis negative. LABORATORY DATA: Blood workup as follows: WBC 8.3, hemoglobin 11.3, hematocrit 34.2, and platelet count 185. Chemistry shows sodium 130, potassium 4.3, chloride , carbon dioxide 21, anion gap of 14, BUN 40, and creatinine 1.8. IMPRESSION: Morbid obesity, paroxysmal atrial fibrillation converted to normal sinus, acute kidney injury, chronic renal insufficiency, respiratory failure, chronic obstructive pulmonary disease, status post intubated, successfully extubated. Most recent echo shows calculated ejection fraction of 55%, right ventricular systolic pressure 23. No mitral regurgitation. No tricuspid regurgitation. He had a history of coronary artery disease in the past, obesity. Discussed with the patient. Patient is not sure what kind of coronary artery disease he had, but denies any history of coronary artery bypass graft, any history of prior percutaneous transluminal coronary angioplasty. Chest x-ray shows mild congestion, poor penetrative film, but no acute congestive heart failure finding noted, history of obesity. RECOMMENDATIONS: Patient is now in transitional care unit. Continue transitional care unit rehab. Continue hydralazine. Avoid nephrotoxic medication. Continue Eliquis 2.5 b.i.d. Continue metoprolol. Continue Synthroid. Verapamil has been changed to long-acting Calan SR. Metoprolol 50 b.i.d. We will follow with you. [facility] status is stable. Thank you, Dr. Ramon, for providing us the opportunity in taking care of the patient, Nii Scott. Josue Foster MD [facility] # [id number]
--- NOTE | 2017-10-25 19:30 | CP.PCM.PN ---
Subjective - Date & Time of Evaluation Date of Evaluation: 10/25/17 Time of Evaluation: 17:30 - Subjective Subjective: Infectious Disease Follow Up: October 25, 2017 72 yo male presenting with SOB and respiratory distress at home. When entering through the ER, the patient was started on BiPAP and given Lasix. 15 minutes afterwards, the patient had worsening SOB and required intubation. Influenza testing was negative. Multiple electrolyte abnormalities especially hyponatremia and elevated creatinine. Patient is acidotic as well. Most of the information taken from the patient's chart. As the patient is intubated and ventilated now, unable to ask the patient any additional questions. The patient has no recent previous hospitalizations (last hospitalization in 2012). Procalcitonin up to 18.11. Extubated yesterday and appears to be doing well. Off BiPAP. WBC has dropped dramatically to 12.9. Most of his electrolyte abnormalities have improved. However, creatinine still remains high. Urine cultures showing gram negative elan identified as Proteus. Sensitive to Cefepime. Currently on Cefepime and Vancomycin. Creatinine slowly improving. Overall improving. Tachycardia improved. Patient is more awake and alert. On the whole, the patient is improved compared to admission. Patient states that he feels pretty good this morning. The patient has continued to improve during his time in the [facility]. Completed Cefepime treatment. Currently without SOB. Patient will continue on Cefepime alone at this point to complete 14 days in total. Appears comfortable. Does not appear short of breath at this time. Cefepime completed on 10/24/2017 evening. Objective - Vital Signs/Intake and Output Vital Signs (last 24 hours): Temp Pulse Resp BP Pulse Ox 97.9 F 65 18 130/52 L 94 L 10/25/17 17:35 10/25/17 17:35 10/25/17 17:35 10/25/17 18:24 10/25/17 17:35 - Medications Medications: Current Medications Apixaban (Eliquis) 2.5 mg PO BID [facility] PRN Reason: Protocol Last Admin: 10/25/17 18:23 Dose: 2.5 mg Arformoterol Tartrate (Brovana) 15 mcg IH [id number] [facility] Last Admin: 10/25/17 07:26 Dose: 15 mcg Budesonide (Pulmicort Respules) 0.5 mg IH [id number] [facility] Last Admin: 10/25/17 07:26 Dose: 0.5 mg Glyburide (Micronase) 5 mg PO 0800,1700 [facility] Last Admin: 10/25/17 18:24 Dose: 5 mg Hydralazine HCl (Apresoline) 25 mg PO TID [facility] Last Admin: 10/25/17 18:23 Dose: 25 mg Insulin Detemir (Levemir) 40 unit SC HS [facility] Last Admin: 10/24/17 22:11 Dose: 40 unit Insulin Human Regular (Humulin R Low) 0 units SC ACHS [facility] PRN Reason: Protocol Last Admin: 10/25/17 18:22 Dose: 5 units Levalbuterol HCl (Xopenex) 1.25 mg IH [id number] [facility] Last Admin: 10/25/17 13:15 Dose: 1.25 mg Levothyroxine Sodium (Synthroid) 100 mcg PO 0600 [facility] Last Admin: 10/25/17 05:44 Dose: 100 mcg Lisinopril (Zestril) 10 mg PO DAILY [facility] Last Admin: 10/25/17 09:26 Dose: 10 mg Methylprednisolone (Solu-Medrol) 20 mg IVP Q12 [facility] Last Admin: 10/25/17 12:01 Dose: 20 mg Metoprolol Tartrate (Lopressor) 50 mg PO BID [facility] Last Admin: 10/25/17 18:24 Dose: 50 mg Pantoprazole Sodium (Protonix Ec Tab) 40 mg PO 0600 [facility] Last Admin: 10/25/17 05:44 Dose: 40 mg Pneumococcal Polyvalent Vaccine (Pneumovax 23 Vaccine) 0.5 ml IM .ONCE ONE Stop: 10/26/17 09:01 Verapamil HCl (Calan Sr Tab) 120 mg PO DAILY [facility] Last Admin: 10/25/17 09:27 Dose: 120 mg - Labs Labs: 10/24/17 05:40 10/24/17 05:40 - Constitutional Appears: Non-toxic, No Acute Distress, Chronically Ill - Head Exam Head Exam: ATRAUMATIC, NORMOCEPHALIC - Eye Exam Eye Exam: EOMI, PERRL Pupil Exam: NORMAL ACCOMODATION, PERRL - ENT Exam ENT Exam: Mucous Membranes Moist, Normal External Ear Exam, TM's Normal Bilaterally - Neck Exam Neck Exam: Full ROM, Normal Inspection - Respiratory Exam Respiratory Exam: Clear to Ausculation Bilateral, NORMAL BREATHING PATTERN. absent: Rales, Rhonchi, Wheezes - Cardiovascular Exam Cardiovascular Exam: REGULAR RHYTHM, RRR, +S1, +S2 - GI/Abdominal Exam GI & Abdominal Exam: Soft, Normal Bowel Sounds. absent: Distended, Tenderness - Extremities Exam Extremities Exam: Full ROM, Normal Inspection - Neurological Exam Neurological Exam: Alert, Awake, CN II-XII Intact, Oriented x3 - Psychiatric Exam Psychiatric exam: Normal Affect, Normal Mood - Skin Skin Exam: Intact, Normal Color Assessment and Plan - Assessment and Plan (Free Text) Assessment: 72 yo male with respiratory distress at home. Presented with SOB and required intubation and ventilation once in [place] [facility] [place] Patient with significant leukocytosis and borderline fevers here at [facility]. Procalcitonin sent. On Cefepime, Vancomycin IV, and Azithromycin. Started on Tamiflu. CT scan showing RML/RLL consolidation/infiltrates. Current antibiotic regimen is reasonable start point. Procalcitonin results of 18.11. Flynn cultures sent. Patient with lactic acidosis and electrolyte abnormalities. Hyponatremia. Acute renal failure with GFR less than 20 and creatinine of 4.1 on admission. Extubated yesterday. Improving. Pneumonia with RLL infiltrate on chest x-ray. Was on Vancomycin IV, Azithromycin, and Cefepime for treatment. Most electrolyte abnormalities have normalized. Still elevated creatinine at 1.8. Urine cultures with gram negative rods identified as Proteus. On the whole improving. To complete on Cefepime for a total of 14 days. Stopped Azithromycin and IV Vancomycin. Stable today. In much less respiratory distress compared to admission. No SOB noted today. Repeat chest X-ray on 10/23/2017 showing improving right lung infiltrate. Overall, patient doing well. Thank you for allowing me to participate in the care of the patient, we will follow with you.
[2017-10-25] MEDS: Insulin Detemir 100 units/ml Vial (Levemir) SC SCH (22:01)
[2017-10-26] MEDS: Levalbuterol 1.25 MG/3 ML Inhal Soln UD IH SCH ×4 (02:27→21:47)
[2017-10-26] MEDS: Levothyroxine 100 MCG TAB PO SCH (05:59)
[2017-10-26] MEDS: Pantoprazole 40 mg EC Tab PO SCH (05:59)
[2017-10-26] MEDS: Insulin Reg-LOW-Coverage SC SCH ×4 (06:39→22:53)
[2017-10-26] MEDS: Arformoterol 15 mcg/2 ml Inh Sol IH SCH ×2 (07:32→21:47)
[2017-10-26] MEDS: Budesonide 0.5 mg/2 ml Inhal Susp UD IH SCH ×2 (07:32→21:47)
--- NOTE | 2017-10-26 07:59 | PN ---
DATE: 10/26/2017 SUBJECTIVE: The patient appears comfortable this morning. He is not short of breath at rest. PHYSICAL EXAMINATION VITAL SIGNS: (Last noted in the computer): Temperature is 97.9, pulse 65, respirations 18, blood pressure 130/52. Oxygen saturation on nasal cannula is 94%. HEENT: Normocephalic, atraumatic. No JVD. CARDIOVASCULAR: Systolic ejection murmur at the lower left sternal border. No S3 gallop. LUNGS: Minimal crackles at the bases. Very minimal/less rhonchi. No wheezing. EXTREMITIES: Positive for edema. No cyanosis, no clubbing. Calves are nontender to palpation. GI: Abdomen is soft, nontender and nondistended. Bowel sounds are positive. SKIN: No acute rash. NEUROLOGIC: Limited at the present time. IMPRESSION: 1. Status post respiratory failure. 2. Right lower lobe pneumonia. 3. Chronic obstructive pulmonary disease. 4. Acute bronchospasm. 5. Cardiac arrhythmias. PLAN: The patient appears very comfortable this morning. He is not short of breath at rest. He does state to feeling much better overall. On physical exam, his bronchospasm continues to resolve. In addition, the alveolar-arterial gradient also continues to resolve. I will continue with the current nebulizer treatments and oral steroids (changed by Dr. Ramon yesterday) for now. The patient remains off antibiotic therapy. There are no temperatures noted. There is no leukocytosis. Clinical status of the patient is significantly improved overall. I will discuss the above with the attending physician. Umair Kauffman MD [facility]
[2017-10-26] MEDS ORDERED: Pneumococcal 23-Valent Vaccine IM ONE (09:00)
[2017-10-26] MEDS ORDERED: Influenza Vaccine 60 mcg/0.5 mL SYR (4YR UP) IM ONE (09:00)
[2017-10-26] MEDS: Verapamil 120 mg ER Tab PO SCH (09:41)
--- NOTE | 2017-10-26 14:20 | PN ---
DATE: 10/26/2017 REASON FOR CONSULTATION: Followup respiratory failure, intubated, paroxysmal atrial fibrillation. Now, the patient is on Transitional Care Unit for continuity of the care. SUBJECTIVE: The patient denies any chest pain, shortness of breath, or any palpitation. OBJECTIVE: GENERAL: Not in apparent distress. VITAL SIGNS: Temperature afebrile, heart rate 65, blood pressure 130/52. HEENT: PERRLA. Extraocular muscles intact. NECK: Supple. No carotid bruits or thyromegaly. CHEST: Clear to auscultation. HEART: S1 and S2, regular. ABDOMEN: Soft. EXTREMITIES: Clubbing and cyanosis negative. LABORATORY DATA: Blood workup as follows: WBC 8.7, hemoglobin , hematocrit 34.2, and platelet count 185. Chemistry shows sodium 138, potassium 4.6, chloride 107, carbon dioxide 21, anion gap of 14. BUN 49, creatinine 1.8. IMPRESSION: Status post respiratory failure, intubated, status post successful extubation, paroxysmal atrial fibrillation converted to normal sinus, morbid obesity, acute kidney injury, chronic renal insufficiency, chronic obstructive pulmonary disease. Last echo shows ejection fraction of 55%, right ventricular systolic pressure 23. No mitral regurgitation. No tricuspid regurgitation. Obesity recommendation. Continue rehabilitation. Avoid nephrotoxic medication. Continue verapamil 120 mg daily. Continue 2.5 b.i.d. for paroxysmal atrial fibrillation. Continue levothyroxine at rehab. Continue lisinopril. Monitor renal function. We will follow with you. Thank you, Dr. Ramon, for providing us the opportunity in taking care of the patient, Nii Scott. Josue Foster MD
--- NOTE | 2017-10-26 16:22 | CP.PCM.PN ---
Subjective - Date & Time of Evaluation Date of Evaluation: 10/26/17 Time of Evaluation: 15:30 - Subjective Subjective: Infectious Disease Follow Up: October 26, 2017 72 yo male presenting with SOB and respiratory distress at home. When entering through the ER, the patient was started on BiPAP and given Lasix. 15 minutes afterwards, the patient had worsening SOB and required intubation. Influenza testing was negative. Multiple electrolyte abnormalities especially hyponatremia and elevated creatinine. Patient is acidotic as well. Most of the information taken from the patient's chart. As the patient is intubated and ventilated now, unable to ask the patient any additional questions. The patient has no recent previous hospitalizations (last hospitalization in 2012). Procalcitonin up to 18.11. Extubated yesterday and appears to be doing well. Off BiPAP. WBC has dropped dramatically to 12.9. Most of his electrolyte abnormalities have improved. However, creatinine still remains high. Urine cultures showing gram negative elan identified as Proteus. Sensitive to Cefepime. Currently on Cefepime and Vancomycin. Creatinine slowly improving. Overall improving. Tachycardia improved. Patient is more awake and alert. On the whole, the patient is improved compared to admission. Patient states that he feels pretty good this morning. The patient has continued to improve during his time in the [facility]. Completed Cefepime treatment. Currently without SOB. Patient will continue on Cefepime alone at this point to complete 14 days in total. Appears comfortable. Does not appear short of breath at this time. Cefepime completed on 10/24/2017 evening. Appears to be continuing to improve. No complaints. Remains afebrile. Objective - Vital Signs/Intake and Output Vital Signs (last 24 hours): Temp Pulse Resp BP Pulse Ox 98.3 F 68 18 142/52 L 95 10/26/17 11:12 10/26/17 13:37 10/26/17 11:12 10/26/17 13:37 10/26/17 11:12 Intake and Output: 10/26/17 10/26/17 06:59 18:59 Intake Total 420 Output Total 800 Balance -380 - Medications Medications: Current Medications Apixaban (Eliquis) 2.5 mg PO BID [facility] PRN Reason: Protocol Last Admin: 10/26/17 09:42 Dose: 2.5 mg Arformoterol Tartrate (Brovana) 15 mcg IH [id number] [facility] Last Admin: 10/26/17 07:32 Dose: 15 mcg Budesonide (Pulmicort Respules) 0.5 mg IH [id number] [facility] Last Admin: 10/26/17 07:32 Dose: 0.5 mg Glyburide (Micronase) 5 mg PO 0800,1700 [facility] Last Admin: 10/26/17 08:26 Dose: 5 mg Hydralazine HCl (Apresoline) 25 mg PO TID [facility] Last Admin: 10/26/17 13:37 Dose: 25 mg Insulin Detemir (Levemir) 40 unit SC [facility] Last Admin: 10/25/17 22:01 Dose: 40 unit Insulin Human Regular (Humulin R Low) 0 units SC [facility] PRN Reason: Protocol Last Admin: 10/26/17 13:33 Dose: 2 units Levalbuterol HCl (Xopenex) 1.25 mg IH [id number] [facility] Last Admin: 10/26/17 13:19 Dose: 1.25 mg Levothyroxine Sodium (Synthroid) 100 mcg PO 0600 [facility] Last Admin: 10/26/17 05:59 Dose: 100 mcg Lisinopril (Zestril) 10 mg PO DAILY [facility] Last Admin: 10/26/17 09:42 Dose: 10 mg Metoprolol Tartrate (Lopressor) 50 mg PO BID [facility] Last Admin: 10/26/17 09:42 Dose: 50 mg Pantoprazole Sodium (Protonix Ec Tab) 40 mg PO 0600 [facility] Last Admin: 10/26/17 05:59 Dose: 40 mg Prednisone (Prednisone Tab) 10 mg PO BID [facility] Last Admin: 10/26/17 13:37 Dose: 10 mg Verapamil HCl (Calan Sr Tab) 120 mg PO DAILY [facility] Last Admin: 10/26/17 09:41 Dose: 120 mg - Labs Labs: 10/24/17 05:40 10/24/17 05:40 - Constitutional Appears: Non-toxic, No Acute Distress, Chronically Ill - Head Exam Head Exam: ATRAUMATIC, NORMOCEPHALIC - Eye Exam Eye Exam: EOMI, PERRL Pupil Exam: NORMAL ACCOMODATION, PERRL - ENT Exam ENT Exam: Mucous Membranes Moist, Normal External Ear Exam, TM's Normal Bilaterally - Neck Exam Neck Exam: Full ROM, Normal Inspection - Respiratory Exam Respiratory Exam: Clear to Ausculation Bilateral, NORMAL BREATHING PATTERN. absent: Rales, Rhonchi, Wheezes - GI/Abdominal Exam GI & Abdominal Exam: Soft, Normal Bowel Sounds. absent: Distended, Tenderness - Extremities Exam Extremities Exam: Full ROM, Normal Inspection - Neurological Exam Neurological Exam: Alert, Awake, CN II-XII Intact, Oriented x3 - Psychiatric Exam Psychiatric exam: Normal Affect, Normal Mood - Skin Skin Exam: Intact, Normal Color Assessment and Plan - Assessment and Plan (Free Text) Assessment: 72 yo male with respiratory distress at home. Presented with SOB and required intubation and ventilation once in the [facility] ER. Patient with significant leukocytosis and borderline fevers here at [facility]. Procalcitonin sent. On Cefepime, Vancomycin IV, and Azithromycin. Started on Tamiflu. CT scan showing RML/RLL consolidation/infiltrates. Current antibiotic regimen is reasonable start point. Procalcitonin results of 18.11. Flynn cultures sent. Patient with lactic acidosis and electrolyte abnormalities. Hyponatremia. Acute renal failure with GFR less than 20 and creatinine of 4.1 on admission. Extubated yesterday. Improving. Pneumonia with RLL infiltrate on chest x-ray. Was on Vancomycin IV, Azithromycin, and Cefepime for treatment. Most electrolyte abnormalities have normalized. Still elevated creatinine at 1.8 as of last check (10/24/2017). Urine cultures with gram negative rods identified as Proteus. On the whole improving. On Cefepime for a total of 14 days. Stopped Azithromycin and IV Vancomycin. Stable today. In much less respiratory distress compared to admission. No SOB noted today. Antibiotics now completed and patient remains stable. Repeat chest X-ray on 10/23/2017 showing improving right lung infiltrate. Overall, patient doing well. Thank you for allowing me to participate in the care of the patient, we will follow with you.
[2017-10-26] MEDS: Insulin Detemir 100 units/ml Vial (Levemir) SC SCH (22:52)
[2017-10-27] MEDS: Levalbuterol 1.25 MG/3 ML Inhal Soln UD IH SCH ×4 (04:49→20:09)
[2017-10-27] MEDS: Levothyroxine 100 MCG TAB PO SCH (05:25)
[2017-10-27] MEDS: Pantoprazole 40 mg EC Tab PO SCH (05:25)
[2017-10-27] MEDS: Insulin Reg-LOW-Coverage SC SCH ×4 (07:15→22:21)
[2017-10-27] MEDS: Arformoterol 15 mcg/2 ml Inh Sol IH SCH ×2 (07:19→20:08)
[2017-10-27] MEDS: Budesonide 0.5 mg/2 ml Inhal Susp UD IH SCH ×2 (07:19→20:09)
[2017-10-27] MEDS: Verapamil 120 mg ER Tab PO SCH (10:57)
[2017-10-27 13:41] VITALS: RESP 19
--- NOTE | 2017-10-27 15:42 | CP.PCM.PN ---
Subjective - Date & Time of Evaluation Date of Evaluation: 10/27/17 Time of Evaluation: 14:00 - Subjective Subjective: Infectious Disease Follow Up: October 27, 2017 72 yo male presenting with SOB and respiratory distress at home. When entering through the ER, the patient was started on BiPAP and given Lasix. 15 minutes afterwards, the patient had worsening SOB and required intubation. Influenza testing was negative. Multiple electrolyte abnormalities especially hyponatremia and elevated creatinine. Patient is acidotic as well. Most of the information taken from the patient's chart. As the patient is intubated and ventilated now, unable to ask the patient any additional questions. The patient has no recent previous hospitalizations (last hospitalization in 2012). Procalcitonin up to 18.11. Extubated yesterday and appears to be doing well. Off BiPAP. WBC has dropped dramatically to 12.9. Most of his electrolyte abnormalities have improved. However, creatinine still remains high. Urine cultures showing gram negative elan identified as Proteus. Sensitive to Cefepime. Currently on Cefepime and Vancomycin. Creatinine slowly improving. Overall improving. Tachycardia improved. Patient is more awake and alert. On the whole, the patient is improved compared to admission. Patient states that he feels pretty good this morning. The patient has continued to improve during his time in the [facility]. Completed Cefepime treatment. Currently without SOB. Patient will continue on Cefepime alone at this point to complete 14 days in total. Appears comfortable. Does not appear short of breath at this time. Cefepime completed on 10/24/2017 evening. Appears to be continuing to improve. No complaints. Remains afebrile. Objective - Vital Signs/Intake and Output Vital Signs (last 24 hours): Temp Pulse Resp BP Pulse Ox 97.8 F 72 19 120/70 96 10/27/17 13:41 10/27/17 13:41 10/27/17 13:41 10/27/17 14:27 10/27/17 13:41 Intake and Output: 10/27/17 10/27/17 06:59 18:59 Intake Total 360 Output Total 650 Balance -290 - Medications Medications: Current Medications Apixaban (Eliquis) 2.5 mg PO BID [facility] PRN Reason: Protocol Last Admin: 10/27/17 10:57 Dose: 2.5 mg Arformoterol Tartrate (Brovana) 15 mcg IH [id number] [facility] Last Admin: 10/27/17 07:19 Dose: 15 mcg Budesonide (Pulmicort Respules) 0.5 mg IH [id number] [facility] Last Admin: 10/27/17 07:19 Dose: 0.5 mg Glyburide (Micronase) 5 mg PO 0800,1700 [facility] Last Admin: 10/27/17 08:12 Dose: 5 mg Hydralazine HCl (Apresoline) 25 mg PO TID [facility] Last Admin: 10/27/17 14:27 Dose: 25 mg Insulin Detemir (Levemir) 40 unit SC HS [facility] Last Admin: 10/26/17 22:52 Dose: 40 unit Insulin Human Regular (Humulin R Low) 0 units SC [facility] PRN Reason: Protocol Last Admin: 10/27/17 12:30 Dose: 2 units Levalbuterol HCl (Xopenex) 1.25 mg IH [id number] [facility] Last Admin: 10/27/17 13:10 Dose: 1.25 mg Levothyroxine Sodium (Synthroid) 100 mcg PO 0600 [facility] Last Admin: 10/27/17 05:25 Dose: 100 mcg Lisinopril (Zestril) 10 mg PO DAILY [facility] Last Admin: 10/27/17 10:57 Dose: 10 mg Metoprolol Tartrate (Lopressor) 50 mg PO BID [facility] Last Admin: 10/27/17 10:59 Dose: 50 mg Pantoprazole Sodium (Protonix Ec Tab) 40 mg PO 0600 [facility] Last Admin: 10/27/17 05:25 Dose: 40 mg Prednisone (Prednisone Tab) 10 mg PO BID [facility] Last Admin: 10/27/17 10:58 Dose: 10 mg Verapamil HCl (Calan Sr Tab) 120 mg PO DAILY [facility] Last Admin: 10/27/17 10:57 Dose: 120 mg - Labs Labs: 10/24/17 05:40 10/24/17 05:40 - Constitutional Appears: Non-toxic, No Acute Distress, Chronically Ill - Head Exam Head Exam: ATRAUMATIC, NORMOCEPHALIC - Eye Exam Eye Exam: EOMI, PERRL Pupil Exam: NORMAL ACCOMODATION, PERRL - ENT Exam ENT Exam: Mucous Membranes Moist, Normal External Ear Exam, TM's Normal Bilaterally - Neck Exam Neck Exam: Full ROM, Normal Inspection - Respiratory Exam Respiratory Exam: Decreased Breath Sounds, NORMAL BREATHING PATTERN. absent: Rales, Rhonchi, Wheezes - Cardiovascular Exam Cardiovascular Exam: REGULAR RHYTHM, RRR, +S1, +S2 - GI/Abdominal Exam GI & Abdominal Exam: Soft, Normal Bowel Sounds. absent: Distended, Tenderness - Extremities Exam Extremities Exam: Full ROM, Normal Inspection - Neurological Exam Neurological Exam: Alert, Awake, CN II-XII Intact, Oriented x3 - Psychiatric Exam Psychiatric exam: Normal Affect, Normal Mood - Skin Skin Exam: Intact, Normal Color Assessment and Plan - Assessment and Plan (Free Text) Assessment: 72 yo male with respiratory distress at home. Presented with SOB and required intubation and ventilation once in the [facility] ER. Patient with significant leukocytosis and borderline fevers here at [facility]. Procalcitonin sent. On Cefepime, Vancomycin IV, and Azithromycin. Started on Tamiflu. CT scan showing RML/RLL consolidation/infiltrates. Current antibiotic regimen is reasonable start point. Procalcitonin results of 18.11. Flynn cultures sent. Patient with lactic acidosis and electrolyte abnormalities. Hyponatremia. Acute renal failure with GFR less than 20 and creatinine of 4.1 on admission. Extubated yesterday. Improving. Pneumonia with RLL infiltrate on chest x-ray. Was on Vancomycin IV, Azithromycin, and Cefepime for treatment. Most electrolyte abnormalities have normalized. Still elevated creatinine at 1.8 as of last check (10/24/2017). Urine cultures with gram negative rods identified as Proteus. On the whole improving. On Cefepime for a total of 14 days. Stopped Azithromycin and IV Vancomycin. Stable today. In much less respiratory distress compared to admission. No SOB noted today. Antibiotics now completed and patient remains stable. Repeat chest X-ray on 10/23/2017 showing improving right lung infiltrate. Overall, patient doing well. Appears content. Thank you for allowing me to participate in the care of the patient, we will follow with you.
[2017-10-27] MEDS: Insulin Detemir 100 units/ml Vial (Levemir) SC SCH (22:20)
[2017-10-28] MEDS: Levalbuterol 1.25 MG/3 ML Inhal Soln UD IH SCH ×3 (01:45→13:06)
[2017-10-28] MEDS: Pantoprazole 40 mg EC Tab PO SCH (05:50)
[2017-10-28] MEDS: Levothyroxine 100 MCG TAB PO SCH (05:50)
[2017-10-28] MEDS: Budesonide 0.5 mg/2 ml Inhal Susp UD IH SCH (07:20)
[2017-10-28] MEDS: Arformoterol 15 mcg/2 ml Inh Sol IH SCH (07:20)
[2017-10-28] MEDS: Insulin Reg-LOW-Coverage SC SCH ×2 (07:53→11:25)
[2017-10-28] MEDS: Verapamil 120 mg ER Tab PO SCH (10:07)
[2017-10-28 12:32] VITALS: TEMP 97.7; O2SAT 95
[2017-10-28 15:03] VITALS: BP 136/60; PULSE 63
== END 2017-10-28 17:15 | disposition home health service (06) | DRG 194 ==
LOC: TRCU 19:45
PROVIDERS: ADMIT Internal Medicine; ATTEND Internal Medicine
PROC: F07Z9FZ Gait Training/Functional Ambulation Treatment using Assistive, Adaptive, Supportive or Protective Equipment (ICD-10-PCS; principal; 2017-10-22)
PROC: F0726YZ Therapeutic Exercise Treatment of Neurological System - Lower Back / Lower Extremity using Other Equipment (ICD-10-PCS; 2017-10-22)
PROC: F08Z1FZ Dressing Techniques Treatment using Assistive, Adaptive, Supportive or Protective Equipment (ICD-10-PCS; 2017-10-25)
PROC: F08Z2FZ Grooming/Personal Hygiene Treatment using Assistive, Adaptive, Supportive or Protective Equipment (ICD-10-PCS; 2017-10-25)
DX: J18.9 Pneumonia, unspecified organism (principal); J44.0 Chronic obstructive pulmonary disease with (acute) lower respiratory infection; J44.1 Chronic obstructive pulmonary disease with (acute) exacerbation; Z68.41 Body mass index [BMI] 40.0-44.9, adult; E11.22 Type 2 diabetes mellitus with diabetic chronic kidney disease; I48.0 Paroxysmal atrial fibrillation; I49.9 Cardiac arrhythmia, unspecified; I25.10 Atherosclerotic heart disease of native coronary artery without angina pectoris; N18.9 Chronic kidney disease, unspecified; E66.01 Morbid (severe) obesity due to excess calories; Z79.84 Long term (current) use of oral hypoglycemic drugs

== ENCOUNTER 2017-12-18 17:25 | Inpatient (IN) | payer MEDICARE, OTHER ==
[2017-12-18 17:26] VITALS: PULSE 134
[2017-12-18 17:33] VITALS: BMI 28.8
[2017-12-18] MEDS ORDERED: Sodium Chloride 0.9% 500 ML IV STA ×2 (17:55→20:11)
--- NOTE | 2017-12-18 18:02 | ED PDOC ---
Arrival/HPI - General Chief Complaint: Abnormal Labs Time Seen by Provider: 12/18/17 17:28 - History of Present Illness Narrative History of Present Illness (Text): 12/18/17 17:59 72 yo male, hx of afib on elqius, recent admission for osteo on iv antibiotics, [place]. pt had hemoglobin of 5.6 outpt. denies complaints. denies rectal bleeding Past Medical History - Infectious Disease Hx of Infectious Diseases: None - Tetanus Immunization Tetanus Immunization: Unknown - Cardiac Hx Atrial Fibrillation: Yes Hx Congestive Heart Failure: Yes Hx Hypertension: Yes Hx Pacemaker: No - Pulmonary Hx Chronic Obstructive Pulmonary Disease (COPD): Yes - Renal Hx Renal Disorder: Yes Hx Renal Failure: Yes - Endocrine/Metabolic Hx Diabetes Mellitus Type 2: Yes Hx Hypothyroidism: Yes - Hematological/Oncological Hx Cancer: No - Integumentary Hx Psoriasis: Yes - Musculoskeletal/Rheumatological Hx Arthritis: Yes - Gastrointestinal Hx Gastrointestinal Disorders: No - Genitourinary/Gynecological Hx Genitourinary Disorders: Yes (URGENCY) - Psychiatric Hx Psychophysiologic Disorder: (unknown) Hx Depression: No Hx Emotional Abuse: No Hx Physical Abuse: No Hx Substance Use: No - Past Surgical History Past Surgical History: Unable to Obtain - Surgical History Hx Mastectomy: No - Anesthesia Hx Anesthesia Reactions: No Hx Malignant Hyperthermia: No - Suicidal Assessment Feels Threatened In Home Enviroment: No Family/Social History - Physician Review Nursing Documentation Reviewed: Yes Family/Social History: Unknown Family HX Smoking Status: Former Smoker Hx Alcohol Use: Yes (social drinking) Hx Substance Use: No Hx Substance Use Treatment: No Allergies/Home Meds Allergies/Adverse Reactions: Allergies No Known Allergies Allergy (Verified 12/18/17 17:36) PER [facility] NURSE Home Medications: Home Meds Medication Instructions Recorded Confirmed Levothyroxine [Synthroid] 100 mcg PO DAILY 04/02/13 11/18/17 Lisinopril [Zestril] 10 mg PO DAILY 10/11/17 10/22/17 Metoprolol Tartrate [Lopressor] 50 mg PO BID 10/11/17 11/18/17 Review of Systems - Review of Systems Constitutional: Normal Eyes: Normal ENT: Normal Respiratory: Normal Cardiovascular: Normal Gastrointestinal: Normal Genitourinary Male: Normal Musculoskeletal: Normal Skin: Normal Neurological: Normal Endocrine: Normal Hemo/Lymphatic: Normal Psychiatric: Normal Physical Exam Vital Signs Temp Pulse Resp BP Pulse Ox 12/18/17 19:46 87 20 110/47 L 100 12/18/17 17:34 97.3 F L 82 18 115/59 L 99 Temperature: Afebrile Blood Pressure: Normal Pulse: Regular Respiratory Rate: Normal Appearance: Positive for: Well-Appearing, Non-Toxic, Comfortable Pain Distress: None Mental Status: Positive for: Alert and Oriented X 3 Finger Stick Blood Glucose: 300 - Systems Exam Head: Present: Atraumatic, Normocephalic Pupils: Present: PERRL Extroacular Muscles: Present: EOMI Conjunctiva: Present: Normal Mouth: Present: Moist Mucous Membranes Neck: Present: Normal Range of Motion Respiratory/Chest: Present: Clear to Auscultation, Good Air Exchange. No: Respiratory Distress, Accessory Muscle Use Cardiovascular: Present: Regular Rate and Rhythm, Normal S1, S2. No: Murmurs Abdomen: Present: Other (brown stool guaic pos). No: Tenderness, Distention, Peritoneal Signs, Rebound, Guarding Rectal: No: Occult Blood Back: Present: Normal Inspection Upper Extremity: Present: Normal Inspection. No: Cyanosis, Edema Lower Extremity: Present: Normal Inspection. No: Edema Neurological: Present: GCS=15, CN II-XII Intact, Speech Normal Skin: Present: Warm, Dry, Normal Color. No: Rashes Psychiatric: Present: Alert, Oriented x 3, Normal Insight, Normal Concentration Medical Decision Making ED Course and Treatment: 12/18/17 18:01 anemia, pt in er, brown stool, guiac postive- labs blood ordered. - Lab Interpretations Lab Results: 12/18/17 18:00 12/18/17 18:00 Lab Results 12/18/17 18:45: Blood Type Confirm A POSITIVE 12/18/17 18:20: Blood Type A POSITIVE, Antibody Screen Negative, Crossmatch See Detail, BBK History Checked No verified bt 12/18/17 18:00: Procalcitonin 0.36 12/18/17 18:00: Sodium 132, Potassium 5.6 H* D, Chloride 98, Carbon Dioxide 22, Anion Gap 18, BUN 51 H, Creatinine 2.0 H, Est GFR ( Amer) 40, Est GFR ( Non-Af Amer) 33, Random Glucose 266 H, Calcium 8.5, Magnesium 1.8, Total Bilirubin 0.3, AST 25, ALT 38, Alkaline Phosphatase 94, Lactate Dehydrogenase 397, Total Creatine Kinase < 20 L, Troponin I < 0.01 D, Total Protein 5.7 L, Albumin 3.2, Globulin 2.5, Albumin/Globulin Ratio 1.3, Lipase 473 H 12/18/17 18:00: PT 19.2 H, INR 1.67 H, APTT 27.8 12/18/17 18:00: WBC 8.4 D, RBC 1.65 L, Hgb 5.3 L* D, Hct 15.4 L*, MCV 93.3 D, MCH 32.1, MCHC 34.4, RDW 14.7 H, Plt Count 177, MPV 10.1, Gran % 90.6 H, Lymph % (Auto) 4.7 L, Forrest % (Auto) 4.2, Eos % (Auto) 0.4 L, Baso % (Auto) 0.1, Gran # 7.64 H, Lymph # (Auto) 0.4 L, Forrest # (Auto) 0.4, Eos # (Auto) 0.0, Baso # ( Auto) 0.01, Neutrophils % (Manual) 96 H, Lymphocytes % (Manual) 3 L, Monocytes % (Manual) 1, Platelet Evaluation Normal, Large Platelets Present, Hypochromasia 2+, Anisocytosis (manual) Slight, Microcytosis (manual) 1+ 12/18/17 17:34: POC Glucose (mg/dL) 300 H - RAD Interpretation Radiology Orders: 12/18/17 17:48 CHEST PORTABLE [RAD] Stat 12/18/17 18:47 ABD & PELVIS W/O PO OR IV CONT [CT] Stat - Medication Orders Current Medication Orders: Discontinued Medications Bisacodyl (Dulcolax) 10 mg PO ONCE ONE Stop: 12/20/17 12:43 Last Admin: 12/20/17 13:17 Dose: 10 mg Bisacodyl (Dulcolax) 10 mg PO ONCE ONE Stop: 12/21/17 06:49 Last Admin: 12/21/17 06:59 Dose: 10 mg Collagenase (Santyl) 0 gm TOP DAILY GLORIA Last Admin: 12/20/17 10:47 Dose: 1 applic Dextrose (Dextrose 50% Inj) 50 ml IVP STAT STA Stop: 12/18/17 18:43 Last Admin: 12/18/17 20:42 Dose: 50 ml IVP Administration Document 12/18/17 20:42 B.P (Rec: 12/18/17 20:42 B.P [id number]) Charges for Administration # of IVP Administrations 1 Dextrose (Dextrose 50% Inj) 50 ml IVP STAT STA Stop: 12/19/17 03:18 Last Admin: 12/19/17 03:29 Dose: 50 ml IVP Administration Document 12/19/17 03:29 B.P (Rec: 12/19/17 03:29 B.P [id number]) Charges for Administration # of IVP Administrations 1 Dextrose (Dextrose 50% Inj) 50 ml IVP ONCE ONE Stop: 12/19/17 03:21 Last Admin: 12/19/17 04:03 Dose: 50 ml IVP Administration Document 12/19/17 04:03 B.P (Rec: 12/19/17 04:03 B.P [id number]) Charges for Administration # of IVP Administrations 1 Dextrose (Dextrose 50% Inj) 50 ml IVP ONCE ONE Stop: 12/19/17 09:00 Last Admin: 12/19/17 09:05 Dose: 50 ml IVP Administration Document 12/19/17 09:05 ALIPM (Rec: 12/19/17 09:06 ALIPM [id number]) Charges for Administration # of IVP Administrations 1 Dextrose (Dextrose 50% Inj) 50 ml IVP ONCE STA Stop: 12/19/17 12:03 Last Admin: 12/19/17 12:13 Dose: 50 ml IVP Administration Document 12/19/17 12:13 ALIPM (Rec: 12/19/17 12:13 ALIPM [id number]) Charges for Administration # of IVP Administrations 1 Dextrose (Dextrose 50% Inj) 50 ml IVP ONCE ONE Stop: 12/21/17 03:38 Last Admin: 12/21/17 03:48 Dose: 50 ml Comments: Patient NPO IVP Administration Document 12/21/17 03:48 MAD (Rec: 12/21/17 03:49 MAD [id number]) Charges for Administration # of IVP Administrations 1 Dextrose (Dextrose 50% Inj) 50 ml IVP ONCE ONE Stop: 12/21/17 07:16 Last Admin: 12/21/17 07:27 Dose: 50 ml Comments: FBG 38 IVP Administration Document 12/21/17 07:27 MAD (Rec: 12/21/17 07:27 MAD [place] [id number]) Charges for Administration # of IVP Administrations 1 Dextrose (Dextrose 50% Inj) 50 ml IVP ONCE ONE Stop: 12/21/17 07:23 Last Admin: 12/21/17 07:25 Dose: 50 ml Comments: IVP Administration Document 12/21/17 07:25 LMN (Rec: 12/21/17 09:23 LMN [place] [id number]) Charges for Administration # of IVP Administrations 1 Dextrose (Dextrose 50% Inj) 50 ml IVP ONCE ONE Stop: 12/21/17 11:19 Last Admin: 12/21/17 11:10 Dose: 50 ml IVP Administration Document 12/21/17 11:10 ALEX (Rec: 12/21/17 11:25 ALEX [place] [id number]) Charges for Administration # of IVP Administrations 1 Doxycycline Hyclate (Doryx) 100 mg PO Q12 GLORIA PRN Reason: Protocol Stop: 12/29/17 22:01 Last Admin: 12/22/17 10:24 Dose: 100 mg Enoxaparin Sodium (Lovenox) 60 mg SC DAILY GLORIA PRN Reason: Protocol Glyburide (Micronase) 5 mg PO BID GLORIA Last Admin: 12/20/17 18:20 Dose: 5 mg Pantoprazole Sodium (Protonix 40mg Ivpb) 40 mg in 100 mls @ 20 mls/hr IVPB .Q5H GLORIA Stop: 12/20/17 05:00 Last Admin: 12/19/17 10:27 Dose: 20 mls/hr eMAR Start Stop Document 12/19/17 10:27 ALIPM (Rec: 12/19/17 10:28 ALIPM [id number]) Intravenous Solution Start Date 12/19/17 Start Time 10:27 End Date 12/19/17 End time 15:27 Total Infusion Time 300 Sodium Chloride (Sodium Chloride 0.9%) 500 mls @ 999 mls/hr IV .Q31M STA Stop: 12/18/17 18:25 Last Admin: 12/18/17 18:25 Dose: 999 mls/hr eMAR Start Stop Document 12/18/17 18:25 SRE (Rec: 12/18/17 18:26 SRE [id number]) Intravenous Solution Start Date 12/18/17 Start Time 18:25 End Date 12/18/17 End time 18:55 Total Infusion Time 30 Dextrose/Sodium Chloride (Dextrose 5%/0.45% Ns 1000 Ml) 1,000 mls @ 100 mls/hr IV .Q10H GLORIA Last Admin: 12/21/17 18:08 Dose: Not Given Non-Admin Reason: Blood Sugar Parameter Comments: Patient is repeatedly hypoglycemic. Ordered to administer D10 fluids. Linezolid (Zyvox 600mg/300ml D5w) 600 mg in 300 mls @ 300 mls/hr IVPB Q12 GLORIA Last Admin: 12/19/17 22:08 Dose: 300 mls/hr eMAR Start Stop Document 12/19/17 22:08 CDE (Rec: 12/19/17 22:08 CDE [id number]) Intravenous Solution Start Date 12/19/17 Start Time 22:08 End Date 12/19/17 End time 23:08 Total Infusion Time 60 Meropenem 500 mg/ Sodium (Chloride) 50 mls @ 100 mls/hr IVPB Q12 GLORIA Last Admin: 12/19/17 22:08 Dose: 100 mls/hr eMAR Start Stop Document 12/19/17 22:08 CDE (Rec: 12/19/17 22:08 CDE [id number]) Intravenous Solution Start Date 12/19/17 Start Time 22:08 End Date 12/19/17 End time 22:38 Total Infusion Time 30 Sodium Chloride (Sodium Chloride 0.9%) 1,000 mls @ 15 mls/hr IV .Q24H GLORIA Stop: 12/19/17 17:31 Meropenem 500 mg/ Sodium (Chloride) 50 mls @ 100 mls/hr IVPB Q8 GLORIA PRN Reason: Protocol Stop: 12/29/17 14:01 Last Admin: 12/22/17 13:49 Dose: 100 mls/hr eMAR Start Stop Document 12/22/17 13:49 DMC (Rec: 12/22/17 13:49 DMC [id number]) Intravenous Solution Start Date 12/22/17 Start Time 13:49 End Date 12/22/17 End time 14:49 Total Infusion Time 60 Linezolid (Zyvox 600mg/300ml D5w) 600 mg in 300 mls @ 200 mls/hr IVPB Q12 GLORIA PRN Reason: Protocol Stop: 12/20/17 11:29 Last Admin: 12/20/17 10:45 Dose: 200 mls/hr eMAR Start Stop Document 12/20/17 10:45 DELIJ (Rec: 12/20/17 10:46 HANS [id number]) Intravenous Solution Start Date 12/20/17 Start Time 10:45 End Date 12/20/17 End time 12:15 Total Infusion Time 90 Dextrose (Dextrose 10% In Water) 500 mls @ 50 mls/hr IV .Q10H GLORIA Last Admin: 12/21/17 12:43 Dose: 50 mls/hr eMAR Start Stop Document 12/21/17 12:43 LMN (Rec: 12/21/17 12:43 LMN [id number]) Intravenous Solution Start Date 12/21/17 Start Time 12:43 Sodium Chloride (Sodium Chloride 0.9%) 1,000 mls @ 100 mls/hr IV .Q10H GLORIA Last Admin: 12/21/17 18:06 Dose: Not Given Non-Admin Reason: Patient in Endo Comments: Given in PACU, instructed in handoff back to unit to resume D10 fluids for patient. Insulin Human Regular (Humulin R) 5 units IV STAT STA Stop: 12/18/17 18:42 Last Admin: 12/18/17 20:42 Dose: 5 units eMAR Start Stop Document 12/18/17 20:42 B.P (Rec: 12/18/17 20:42 B.P [id number]) Intravenous Solution Start Date 12/18/17 Start Time 20:42 Insulin Human Regular (Humulin R Med) 0 units SC Q4H GLORIA PRN Reason: Protocol Last Admin: 12/22/17 08:43 Dose: Not Given Non-Admin Reason: Blood Sugar Parameter MAR Blood Glucose Document 12/22/17 08:43 DMC (Rec: 12/22/17 08:43 DMC [id number]) Blood Glucose Finger Stick Blood Glucose (70-120) 101 Lactobacillus Acidophilus (Bacid Acidophilus) 1 cap PO BID GLORIA Last Admin: 12/22/17 10:24 Dose: 1 cap Levothyroxine Sodium (Synthroid) 100 mcg PO DAILY [facility] Last Admin: 12/22/17 10:24 Dose: 100 mcg Lisinopril (Zestril) 10 mg PO DAILY [facility] Last Admin: 12/22/17 10:28 Dose: 10 mg MAR Pulse and Blood Pressure Document 12/22/17 10:28 [facility] (Rec: 12/22/17 10:28 [id number]) Blood Pressure Blood Pressure (100/60-150/90) 132/60 Magnesium Citrate (Citrate Of Mag) 300 ml PO ONCE ONE Stop: 12/21/17 06:49 Last Admin: 12/21/17 06:59 Dose: 300 ml Metoprolol Tartrate (Lopressor) 50 mg PO BID [facility] Last Admin: 12/22/17 10:27 Dose: 50 mg MAR Pulse and Blood Pressure Document 12/22/17 10:27 [facility] (Rec: 12/22/17 10:27 [id number]) Blood Pressure Blood Pressure (100/60-150/90) 132/60 Nystatin (Mycostatin Cream) 0 ea TOP TID [facility] Last Admin: 12/22/17 13:51 Dose: 1 applic Pantoprazole Sodium (Protonix Inj) 40 mg IVP STAT STA Stop: 12/18/17 17:51 Last Admin: 12/18/17 18:26 Dose: 40 mg IVP Administration Document 12/18/17 18:26 SRE (Rec: 12/18/17 18:26 SRE [id number]) Charges for Administration # of IVP Administrations 1 Pantoprazole Sodium (Protonix Ec Tab) 40 mg PO 0600 [facility] Pantoprazole Sodium (Protonix Inj) 40 mg IVP Q12 [facility] Last Admin: 12/22/17 10:27 Dose: 40 mg IVP Administration Document 12/22/17 10:27 [facility] (Rec: 12/22/17 10:28 [id number]) Charges for Administration # of IVP Administrations 1 Polyethylene Glycol/Electrolytes (Golytely) 4,000 ml PO ONCE ONE Stop: 12/20/17 14:01 Last Admin: 12/20/17 15:28 Dose: 4,000 ml Prednisone (Prednisone Tab) 10 mg PO DAILY [facility] Last Admin: 12/22/17 10:24 Dose: 10 mg Sevelamer HCl (Renagel) 800 mg PO TID [facility] Last Admin: 12/22/17 10:24 Dose: 800 mg Silver Sulfadiazine (Silvadene 1% 25 Gm) 0 gm TP DAILY [facility] Last Admin: 12/22/17 10:29 Dose: 25 gm Verapamil HCl (Calan Sr Tab) 120 mg PO DAILY [facility] Last Admin: 12/22/17 10:27 Dose: 120 mg MAR Pulse and Blood Pressure Document 12/22/17 10:27 [facility] (Rec: 12/22/17 10:27 [id number]) Blood Pressure Blood Pressure (100/60-150/90) 132/60 Disposition/Present on Arrival - Present on Arrival Any Indicators Present on Arrival: No History of DVT/PE: No History of Uncontrolled Diabetes: No Urinary Catheter: No History of Decub. Ulcer: Yes History Surgical Site Infection Following: None - Disposition Have Diagnosis and Disposition been Completed?: Yes Diagnosis: GI bleed, Anemia Disposition: HOSPITALIZED Disposition Time: 07:00 Condition: FAIR
[2017-12-18 18:14] LABS: BASO # 0.01 K/mm3 (0.0-2.0); BASO % 0.1 % (0.0-3.0); EOS % 0.4 % (1.5-5.0); GRAN # 7.64 (1.4-6.5); GRAN % 90.6 % (50.0-68.0); LYMPH # 0.4 (1.2-3.4); LYMPH % 4.7 % (22.0-35.0); MEAN CELL VOLUME 93.3 fl (80.0-105.0); MEAN CORPUSCULAR HEMOGLOBIN 32.1 pg (25.0-35.0); MEAN CORPUSCULAR HGB CONC 34.4 g/dl (31.0-37.0); MEAN PLATELET VOLUME 10.1 fl (7.0-11.0); MONO # 0.4 (0.1-0.6); MONO % 4.2 % (1.0-6.0); PLATELET COUNT 177 10^3/uL (120.0-450.0); RBC 1.65 10^6/uL (3.5-6.1); RED CELL DISTRIBUTION WIDTH 14.7 % (11.5-14.5); WHITE BLOOD COUNT 8.4 10^3/ul (4.5-11.0)
[2017-12-18 18:28] LABS: HEMOGLOBIN 5.3 g/dL (14.0-18.0)
[2017-12-18] MEDS: Pantoprazole 40mg/100mL NS 40 MG/100 ML BAG IVPB SCH ×2 (18:28→22:51)
[2017-12-18 18:32] LABS: INR 1.67 (0.93-1.08); PARTIAL THROMBOPLASTIN TIME 27.8 Seconds (25.1-36.5); PROTHROMBIN TIME 19.2 SECONDS (9.4-12.5)
[2017-12-18 18:37] LABS: ALB/GLOB RATIO 1.3 (1.1-1.8); ALBUMIN 3.2 g/dL (3.0-4.8); ALT/SGPT 38 U/L (7-56); AST/SGOT 25 U/L (17-59); BLOOD UREA NITROGEN 51 mg/dL (7-21); CALCIUM 8.5 mg/dL (8.4-10.5); GFR AFRICAN-AMERICAN 40; GFR NON-AFRICAN AMERICAN 33; LIPASE 473 U/L (23-300)
[2017-12-18 18:40] LABS: TROPONIN I < 0.01 ng/mL
[2017-12-18] MEDS ORDERED: Insulin Regular 1 UNITS/0.01 ML ML IV STA (18:41)
[2017-12-18] MEDS ORDERED: Dextrose 50% SYRINGE Inj (50 ml) IVP STA (18:42)
[2017-12-18 18:52] LABS: LYMPHOCYTE 3 % (22.0-35.0); MONOCYTE 1 % (1.0-6.0); NEUTROPHIL 96 % (50.0-70.0)
[2017-12-18 18:53] LABS: ANISOCYTOSIS SLIGHT; HYPOCHROMIA 2+; LARGE PLATELETS PRESENT; MICROCYTOSIS 1+; PLATELET ESTIMATE NORMAL (NORMAL)
[2017-12-18] MEDS ORDERED: Sodium Chloride 0.9% 1,000 ML IV SCH (19:30)
[2017-12-18 19:58] LABS: VENOUS BLOOD GAS BASE EXCESS -1.8 mmol/L (0.0-2.0); VENOUS BLOOD GAS PO2 136 mm/Hg (30-55); VENOUS BLOOD PH 7.38 (7.32-7.43)
[2017-12-18 20:11] LABS: URINE APPEARANCE SL CLOUDY (CLEAR); URINE BILIRUBIN NEGATIVE (NEGATIVE); URINE BLOOD TRACE-INTACT (NEGATIVE); URINE COLOR YELLOW (YELLOW); URINE GLUCOSE (UA) NEGATIVE (NEGATIVE); URINE LEUKOCYTE ESTERASE SMALL Leu/uL (NEGATIVE); URINE PROTEIN NEGATIVE mg/dL (<30 mg/dL); URINE UROBILINOGEN 0.2 E.U./dL (<1 E.U./dL)
[2017-12-18 20:23] LABS: URINE RBC 0 - 2 /hpf (0-2)
--- NOTE | 2017-12-18 21:20 | CARD ---
APPROVED REPORT EKG Measurement Heart [id number] RI 148P-1 [id number] <Conclusion> Normal sinus rhythm Abnormal QRS-T angle, consider primary T wave abnormality Abnormal ECG
[2017-12-18] MEDS: Insulin Reg-MEDIUM-Coverage SC SCH ×2 (21:24→23:28)
--- NOTE | 2017-12-18 21:42 | CT ---
EXAM: CT Abdomen and Pelvis Without Intravenous Contrast EXAM DATE/TIME: 12/18/2017 6:47 PM CLINICAL HISTORY: The patient age is 72 years old and is male; Pain; Abdominal pain; Acute; Additional info: Gi bleed Facility exam id and description: Ct [id number] abd pelvis w/o po or iv cont TECHNIQUE: Axial computed tomography images of the abdomen and pelvis without intravenous contrast. All CT scans at this facility use one or more dose reduction techniques, viz.: automated exposure control; ma/kV adjustment per patient size (including targeted exams where dose is matched to indication; i.e. head); or iterative reconstruction technique. Coronal and sagittal reformatted images were created and reviewed. COMPARISON: CT - ABD PELVIS W/O PO OR IV CONT 2017-10-11 17:38 FINDINGS: Lung bases: Atelectatic changes are identified at the bilateral lung bases. ABDOMEN: Liver: There is lobulation of the hepatic contour, suggestive of hepatocellular dysfunction or cirrhosis. Gallbladder and bile ducts: No calcified stones. No ductal dilation. Pancreas: Normal contour. No ductal dilation. Spleen: No splenomegaly. Adrenals: No mass. Kidneys and ureters: Complex renal cyst or cystic lesions are visualized bilaterally. At the upper pole the left kidney, there is a hyperdense complex or hemorrhagic cystic lesion measuring 1.9 x 1.6 cm. There is no progression in size. An additional small hyperdense lesion is seen in the midpole the left kidney. At the upper pole the right kidney, there is a new complex hypodense cyst with peripheral calcification measuring 3.4 cm in diameter. No hydronephrosis. Stomach and bowel: Colonic diverticula are identified, without acute inflammatory stranding of the adjacent mesentery. There is moderate fecal material within the colon. Appendix: No findings to suggest acute appendicitis. PELVIS: Bladder: No stones. Reproductive: The prostate is enlarged. Small calcifications are visualized within the prostate. ABDOMEN and PELVIS: Intraperitoneal space: No free air. Bones/joints: There is a stable small hypodense cystic or lytic lesion involving the L5 vertebral body measuring 1.2 x 0.8 cm. Hypertrophic degenerative changes are noted within the spine. Chronic compression fractures are visualized of T11 and T12. These findings are stable. Vasculature: There is atherosclerotic calcification of the abdominal aorta. No abdominal aortic aneurysm. Lymph nodes: No enlarged lymph nodes. IMPRESSION: 1. There is lobulation of the hepatic contour, suggestive of hepatocellular dysfunction or cirrhosis. 2. Complex renal cysts/cystic lesions are visualized bilaterally, as detailed above. Nonemergent follow-up ultrasonography is recommended. 3. Diverticulosis. 4. The prostate is enlarged. 5. There is a stable small hypodense cystic or lytic lesion involving the L5 vertebral body. 6. Incidental/non-acute findings are described above.
[2017-12-19] MEDS ORDERED: Dextrose 50% SYRINGE Inj (50 ml) IVP STA ×2 (03:17→12:02)
[2017-12-19] MEDS ORDERED: Dextrose 50% SYRINGE Inj (50 ml) IVP ONE ×2 (03:20→08:59)
[2017-12-19] MEDS: Insulin Reg-MEDIUM-Coverage SC SCH ×5 (03:35→22:08)
[2017-12-19] MEDS: Dextrose 5%/0.45% NS 1,000 ML IV SCH ×2 (04:11→17:23)
[2017-12-19] MEDS: Pantoprazole 40mg/100mL NS 40 MG/100 ML BAG IVPB SCH ×2 (05:22→10:27)
[2017-12-19 05:56] LABS: MEAN CELL VOLUME 86.9 fl (80.0-105.0); MEAN CORPUSCULAR HEMOGLOBIN 31.1 pg (25.0-35.0); MEAN CORPUSCULAR HGB CONC 35.8 g/dl (31.0-37.0); MEAN PLATELET VOLUME 9.7 fl (7.0-11.0); RBC 2.83 10^6/uL (3.5-6.1); RED CELL DISTRIBUTION WIDTH 15.4 % (11.5-14.5)
[2017-12-19 05:59] LABS: WHITE BLOOD COUNT 6.2 10^3/ul (4.5-11.0)
[2017-12-19 06:00] LABS: HEMOGLOBIN 8.8 g/dL (14.0-18.0)
[2017-12-19 06:14] LABS: VENOUS BLOOD GAS BASE EXCESS 1.2 mmol/L (0.0-2.0); VENOUS BLOOD GAS PO2 86 mm/Hg (30-55); VENOUS BLOOD PH 7.41 (7.32-7.43)
[2017-12-19 06:28] LABS: CALCIUM 8.3 mg/dL (8.4-10.5)
--- NOTE | 2017-12-19 07:45 | CP.CCUPN ---
<Shin Segla - Last Filed: 12/19/17 15:50> CCU Subjective - Physician Review Subjective (Free Text): 12/19/17 15:50 Patient seen and examined at bedside in no acute distress. States he feels much better than yesterday as he is no longer feeling fatigued or tired. Denies dizziness, shortness of breath, weakness, fatigue, headache, nausea, vomiting, diarrhea, fevers, chills. Social history: former smoker, social drinker, no substance abuse RBC 1.65 now 2.83, h&H 5.3/15.4 now 8.8/24.6, lactate originally 3.6 now 1.8, Cr ranges from 1.5-4.9 but currently 1.8 down from 2.0 on admission Imaging: CT abdomen/pelvis: lungs bases reveal atelectatic changes at the bilateral lung bases, liver hepatocellular dysufcuntion or cirrhosis, kidneys show B/L complex renal cysts, diverticulosis Critical Care Time Spent (in minutes): 40 CCU Objective - Vital Signs / Intake & Output Vital Signs (Last 4 hours): Vital Signs Temp Pulse Resp BP Pulse Ox 12/19/17 07:13 104 H 12/19/17 07:10 104 H 48 H 100 12/19/17 07:00 90 14 149/65 100 12/19/17 06:50 90 17 100 12/19/17 06:40 86 12 99 12/19/17 06:30 79 14 99 12/19/17 06:20 82 16 100 12/19/17 06:10 84 17 100 12/19/17 06:00 81 154/73 H 100 12/19/17 05:50 104 H 14 100 12/19/17 05:40 89 12 100 12/19/17 05:30 87 12 100 12/19/17 05:20 75 12 100 12/19/17 05:10 79 11 L 100 12/19/17 05:01 89 30 H 173/87 H 98 12/19/17 05:00 82 12 98 12/19/17 04:50 95 H 17 100 12/19/17 04:40 86 14 99 12/19/17 04:30 85 15 97 12/19/17 04:20 84 15 98 12/19/17 04:10 86 12 98 12/19/17 04:00 97.4 F L 93 H 13 123/60 98 12/19/17 03:50 90 12 99 Intake and Output (Last 8hrs): Intake & Output 12/18/17 12/19/17 12/19/17 22:59 06:59 14:59 Intake Total 0 2450 Output Total 1100 Balance 0 1350 Intake: IV 500 d5 0.5 300 protonix 200 Blood Product 0 1950 Red Blood Cells Cp2d As3 325 Lr Unit [id number] Red Blood Cells Cpd As1 0 325 Lr Unit [id number] Red Blood Cells Cpd As1 325 Lr Unit [id number] Output: Urine 1100 Urethral ([place]) 1100 Other: Voiding Method Urinal - Physical Exam Head: Positive for: Atraumatic, Normocephalic Pupils: Positive for: PERRL Extroacular Muscles: Positive for: EOMI Conjunctiva: Positive for: Normal Mouth: Positive for: Moist Mucous Membranes Neck: Positive for: Normal Range of Motion Respiratory/Chest: Positive for: Clear to Auscultation, Good Air Exchange. Negative for: Respiratory Distress, Accessory Muscle Use Cardiovascular: Positive for: Regular Rate and Rhythm, Normal S1, S2. Negative for: Murmurs Abdomen: Positive for: Other (brown stool guaic pos). Negative for: Tenderness , Distention, Peritoneal Signs, Rebound, Guarding Rectal: Negative for: Occult Blood Back: Positive for: Normal Inspection Upper Extremity: Positive for: Normal Inspection. Negative for: Cyanosis, Edema Lower Extremity: Positive for: Normal Inspection. Negative for: Edema Neurological: Positive for: GCS=15, CN II-XII Intact, Speech Normal Skin: Positive for: Warm, Dry, Normal Color. Negative for: Rashes Psychiatric: Positive for: Alert, Oriented x 3, Normal Insight, Normal Concentration - Medications Active Medications: Active Medications Generic Name Dose Route Start Last Admin Trade Name Freq PRN Reason Stop Dose Admin Pantoprazole Sodium 40 mg in 100 mls @ 20 mls/hr 12/18/17 18:00 12/19/17 05: 22 Protonix 40mg Ivpb IVPB 20 mls/hr .Q5H GLORIA Administration Dextrose/Sodium Chloride 1,000 mls @ 100 mls/hr 12/19/17 02:15 12/19/17 04:11 Dextrose 5%/0.45% Ns 1000 Ml IV 100 mls/hr .Q10H GLORIA Administration Insulin Human Regular 0 units 12/18/17 19:00 12/19/17 07:00 Humulin R Med SC Not Given Q4H GLORIA Protocol Levothyroxine Sodium 100 mcg 12/19/17 10:00 Synthroid PO DAILY GLORIA - Patient Studies Lab Studies: Lab Studies 12/19/17 12/19/17 12/19/17 Range/Units 06:51 06:08 05:45 WBC (4.5-11.0) 10^3/ul RBC (3.5-6.1) 10^6/uL Hgb (14.0-18.0) g/dL Hct (42.0-52.0) % MCV (80.0-105.0) fl MCH (25.0-35.0) pg MCHC (31.0-37.0) g/dl RDW (11.5-14.5) % Plt Count (120.0-450.0) 10^3/uL MPV (7.0-11.0) fl pO2 (30-55) mm/Hg VBG pH (7.32-7.43) VBG pCO2 (40-60) VBG HCO3 (21-28) mmol/l VBG Total CO2 (22-28) mmol.L VBG O2 Sat (Calc) (40-65) % VBG Base Excess (0.0-2.0) mmol/L VBG Potassium (3.6-5.2) mmol/L Sodium 136 (132-148) mmol/L Chloride 103 (98-107) mmol/L Glucose (75-110) mg/dl Lactate (0.7-2.1) mmol/L FiO2 % Potassium 4.3 (3.6-5.0) mmol/L Carbon Dioxide 25 (21-33) mmol/L Anion Gap 12 (10-20) BUN 45 H (7-21) mg/dL Creatinine 1.8 H (0.8-1.5) mg/dl Est GFR ( Amer) 45 Est GFR (Non-Af Amer) 37 POC Glucose (mg/dL) 70 87 (65-110) mg/dL Random Glucose 101 (70-110) mg/dL Calcium 8.3 L (8.4-10.5) mg/dL Venous Blood Potassium (3.6-5.2) mmol/L Urine Color (YELLOW) Urine Appearance (CLEAR) Urine pH (4.7-8.0) Ur Specific Olla (1.005-1.035) Urine Protein (<30 mg/dL) mg/dL Urine Glucose (UA) (NEGATIVE) mg/dL Urine Ketones (NEGATIVE) mg/dL Urine Blood (NEGATIVE) Urine Nitrate (NEGATIVE) Urine Bilirubin (NEGATIVE) Urine Urobilinogen (<1 E.U./dL) E.U./dL Ur Leukocyte Esterase (NEGATIVE) Micaela/uL Urine RBC (0-2) /hpf Urine WBC (0-6) /hpf 12/19/17 12/19/17 12/19/17 Range/Units 05:45 05:45 05:36 WBC 6.2 D (4.5-11.0) 10^3/ul RBC 2.83 L (3.5-6.1) 10^6/uL Hgb 8.8 L D (14.0-18.0) g/dL Hct 24.6 L (42.0-52.0) % MCV 86.9 D (80.0-105.0) fl MCH 31.1 (25.0-35.0) pg MCHC 35.8 (31.0-37.0) g/dl RDW 15.4 H (11.5-14.5) % Plt Count 131 (120.0-450.0) 10^3/uL MPV 9.7 (7.0-11.0) fl pO2 86 H (30-55) mm/Hg VBG pH 7.41 (7.32-7.43) VBG pCO2 41.0 (40-60) VBG HCO3 26.0 (21-28) mmol/l VBG Total CO2 27.3 (22-28) mmol.L VBG O2 Sat (Calc) 98.0 H (40-65) % VBG Base Excess 1.2 (0.0-2.0) mmol/L VBG Potassium 4.3 (3.6-5.2) mmol/L Sodium 135.0 (132-148) mmol/L Chloride 105.0 (98-107) mmol/L Glucose 105 (75-110) mg/dl Lactate 1.8 (0.7-2.1) mmol/L FiO2 21.0 % Potassium (3.6-5.0) mmol/L Carbon Dioxide (21-33) mmol/L Anion Gap (10-20) BUN (7-21) mg/dL Creatinine (0.8-1.5) mg/dl Est GFR ( Amer) Est GFR (Non-Af Amer) POC Glucose (mg/dL) 96 (65-110) mg/dL Random Glucose (70-110) mg/dL Calcium (8.4-10.5) mg/dL Venous Blood Potassium 4.3 (3.6-5.2) mmol/L Urine Color (YELLOW) Urine Appearance (CLEAR) Urine pH (4.7-8.0) Ur Specific Olla (1.005-1.035) Urine Protein (<30 mg/dL) mg/dL Urine Glucose (UA) (NEGATIVE) mg/dL Urine Ketones (NEGATIVE) mg/dL Urine Blood (NEGATIVE) Urine Nitrate (NEGATIVE) Urine Bilirubin (NEGATIVE) Urine Urobilinogen (<1 E.U./dL) E.U./dL Ur Leukocyte Esterase (NEGATIVE) Micaela/uL Urine RBC (0-2) /hpf Urine WBC (0-6) /hpf 12/19/17 12/19/17 12/19/17 Range/Units 04:33 03:34 03:04 WBC (4.5-11.0) 10^3/ul RBC (3.5-6.1) 10^6/uL Hgb (14.0-18.0) g/dL Hct (42.0-52.0) % MCV (80.0-105.0) fl MCH (25.0-35.0) pg MCHC (31.0-37.0) g/dl RDW (11.5-14.5) % Plt Count (120.0-450.0) 10^3/uL MPV (7.0-11.0) fl pO2 (30-55) mm/Hg VBG pH (7.32-7.43) VBG pCO2 (40-60) VBG HCO3 (21-28) mmol/l VBG Total CO2 (22-28) mmol.L VBG O2 Sat (Calc) (40-65) % VBG Base Excess (0.0-2.0) mmol/L VBG Potassium (3.6-5.2) mmol/L Sodium (132-148) mmol/L Chloride (98-107) mmol/L Glucose (75-110) mg/dl Lactate (0.7-2.1) mmol/L FiO2 % Potassium (3.6-5.0) mmol/L Carbon Dioxide (21-33) mmol/L Anion Gap (10-20) BUN (7-21) mg/dL Creatinine (0.8-1.5) mg/dl Est GFR ( Amer) Est GFR (Non-Af Amer) POC Glucose (mg/dL) 136 H 217 H 22 L* (65-110) mg/dL Random Glucose (70-110) mg/dL Calcium (8.4-10.5) mg/dL Venous Blood Potassium (3.6-5.2) mmol/L Urine Color (YELLOW) Urine Appearance (CLEAR) Urine pH (4.7-8.0) Ur Specific Olla (1.005-1.035) Urine Protein (<30 mg/dL) mg/dL Urine Glucose (UA) (NEGATIVE) mg/dL Urine Ketones (NEGATIVE) mg/dL Urine Blood (NEGATIVE) Urine Nitrate (NEGATIVE) Urine Bilirubin (NEGATIVE) Urine Urobilinogen (<1 E.U./dL) E.U./dL Ur Leukocyte Esterase (NEGATIVE) Micaela/uL Urine RBC (0-2) /hpf Urine WBC (0-6) /hpf 12/18/17 12/18/17 12/18/17 Range/Units 23:27 21:10 20:03 WBC (4.5-11.0) 10^3/ul RBC (3.5-6.1) 10^6/uL Hgb (14.0-18.0) g/dL Hct (42.0-52.0) % MCV (80.0-105.0) fl MCH (25.0-35.0) pg MCHC (31.0-37.0) g/dl RDW (11.5-14.5) % Plt Count (120.0-450.0) 10^3/uL MPV (7.0-11.0) fl pO2 (30-55) mm/Hg VBG pH (7.32-7.43) VBG pCO2 (40-60) VBG HCO3 (21-28) mmol/l VBG Total CO2 (22-28) mmol.L VBG O2 Sat (Calc) (40-65) % VBG Base Excess (0.0-2.0) mmol/L VBG Potassium (3.6-5.2) mmol/L Sodium (132-148) mmol/L Chloride (98-107) mmol/L Glucose (75-110) mg/dl Lactate (0.7-2.1) mmol/L FiO2 % Potassium (3.6-5.0) mmol/L Carbon Dioxide (21-33) mmol/L Anion Gap (10-20) BUN (7-21) mg/dL Creatinine (0.8-1.5) mg/dl Est GFR ( Amer) Est GFR (Non-Af Amer) POC Glucose (mg/dL) 87 215 H (65-110) mg/dL Random Glucose (70-110) mg/dL Calcium (8.4-10.5) mg/dL Venous Blood Potassium (3.6-5.2) mmol/L Urine Color Yellow (YELLOW) Urine Appearance Sl cloudy (CLEAR) Urine pH 6.0 (4.7-8.0) Ur Specific Olla 1.015 (1.005-1.035) Urine Protein Negative (<30 mg/dL) mg/dL Urine Glucose (UA) Negative (NEGATIVE) mg/dL Urine Ketones Negative (NEGATIVE) mg/dL Urine Blood Trace-intact H (NEGATIVE) Urine Nitrate Negative (NEGATIVE) Urine Bilirubin Negative (NEGATIVE) Urine Urobilinogen 0.2 (<1 E.U./dL) E.U./dL Ur Leukocyte Esterase Small H (NEGATIVE) Micaela/uL Urine RBC 0 - 2 (0-2) /hpf Urine WBC 2 - 5 (0-6) /hpf 12/18/17 Range/Units 19:40 WBC (4.5-11.0) 10^3/ul RBC (3.5-6.1) 10^6/uL Hgb (14.0-18.0) g/dL Hct (42.0-52.0) % MCV (80.0-105.0) fl MCH (25.0-35.0) pg MCHC (31.0-37.0) g/dl RDW (11.5-14.5) % Plt Count (120.0-450.0) 10^3/uL MPV (7.0-11.0) fl pO2 136 H (30-55) mm/Hg VBG pH 7.38 (7.32-7.43) VBG pCO2 39.0 L (40-60) VBG HCO3 23.1 (21-28) mmol/l VBG Total CO2 24.3 (22-28) mmol.L VBG O2 Sat (Calc) 98.3 H (40-65) % VBG Base Excess -1.8 L (0.0-2.0) mmol/L VBG Potassium 5.1 (3.6-5.2) mmol/L Sodium 131.0 L (132-148) mmol/L Chloride 103.0 (98-107) mmol/L Glucose 190 H (75-110) mg/dl Lactate 3.6 H (0.7-2.1) mmol/L FiO2 21.0 % Potassium (3.6-5.0) mmol/L Carbon Dioxide (21-33) mmol/L Anion Gap (10-20) BUN (7-21) mg/dL Creatinine (0.8-1.5) mg/dl Est GFR ( Amer) Est GFR (Non-Af Amer) POC Glucose (mg/dL) (65-110) mg/dL Random Glucose (70-110) mg/dL Calcium (8.4-10.5) mg/dL Venous Blood Potassium 5.1 (3.6-5.2) mmol/L Urine Color (YELLOW) Urine Appearance (CLEAR) Urine pH (4.7-8.0) Ur Specific Olla (1.005-1.035) Urine Protein (<30 mg/dL) mg/dL Urine Glucose (UA) (NEGATIVE) mg/dL Urine Ketones (NEGATIVE) mg/dL Urine Blood (NEGATIVE) Urine Nitrate (NEGATIVE) Urine Bilirubin (NEGATIVE) Urine Urobilinogen (<1 E.U./dL) E.U./dL Ur Leukocyte Esterase (NEGATIVE) Micaela/uL Urine RBC (0-2) /hpf Urine WBC (0-6) /hpf Laboratory Results - last 24 hr 12/18/17 12/18/17 12/18/17 19:40 20:03 21:10 WBC RBC Hgb Hct MCV MCH MCHC RDW Plt Count MPV pO2 136 H VBG pH 7.38 VBG pCO2 39.0 L VBG HCO3 23.1 VBG Total CO2 24.3 VBG O2 Sat (Calc) 98.3 H VBG Base Excess -1.8 L VBG Potassium 5.1 Sodium 131.0 L Chloride 103.0 Glucose 190 H Lactate 3.6 H FiO2 21.0 Potassium Carbon Dioxide Anion Gap BUN Creatinine Est GFR ( Amer) Est GFR (Non-Af Amer) POC Glucose (mg/dL) 215 H Random Glucose Calcium Venous Blood Potassium 5.1 Urine Color Yellow Urine Appearance Sl cloudy Urine pH 6.0 Ur Specific Olla 1.015 Urine Protein Negative Urine Glucose (UA) Negative Urine Ketones Negative Urine Blood Trace-intact H Urine Nitrate Negative Urine Bilirubin Negative Urine Urobilinogen 0.2 Ur Leukocyte Esterase Small H Urine RBC 0 - 2 Urine WBC 2 - 5 12/18/17 12/19/17 12/19/17 23:27 03:04 03:34 WBC RBC Hgb Hct MCV MCH MCHC RDW Plt Count MPV pO2 VBG pH VBG pCO2 VBG HCO3 VBG Total CO2 VBG O2 Sat (Calc) VBG Base Excess VBG Potassium Sodium Chloride Glucose Lactate FiO2 Potassium Carbon Dioxide Anion Gap BUN Creatinine Est GFR ( Amer) Est GFR (Non-Af Amer) POC Glucose (mg/dL) 87 22 L* 217 H Random Glucose Calcium Venous Blood Potassium Urine Color Urine Appearance Urine pH Ur Specific Olla Urine Protein Urine Glucose (UA) Urine Ketones Urine Blood Urine Nitrate Urine Bilirubin Urine Urobilinogen Ur Leukocyte Esterase Urine RBC Urine WBC 12/19/17 12/19/17 12/19/17 04:33 05:36 05:45 WBC RBC Hgb Hct MCV MCH MCHC RDW Plt Count MPV pO2 86 H VBG pH 7.41 VBG pCO2 41.0 VBG HCO3 26.0 VBG Total CO2 27.3 VBG O2 Sat (Calc) 98.0 H VBG Base Excess 1.2 VBG Potassium 4.3 Sodium 135.0 Chloride 105.0 Glucose 105 Lactate 1.8 FiO2 21.0 Potassium Carbon Dioxide Anion Gap BUN Creatinine Est GFR ( Amer) Est GFR (Non-Af Amer) POC Glucose (mg/dL) 136 H 96 Random Glucose Calcium Venous Blood Potassium 4.3 Urine Color Urine Appearance Urine pH Ur Specific Olla Urine Protein Urine Glucose (UA) Urine Ketones Urine Blood Urine Nitrate Urine Bilirubin Urine Urobilinogen Ur Leukocyte Esterase Urine RBC Urine WBC 12/19/17 12/19/17 12/19/17 05:45 05:45 06:08 WBC 6.2 D RBC 2.83 L Hgb 8.8 L D Hct 24.6 L MCV 86.9 D MCH 31.1 MCHC 35.8 RDW 15.4 H Plt Count 131 MPV 9.7 pO2 VBG pH VBG pCO2 VBG HCO3 VBG Total CO2 VBG O2 Sat (Calc) VBG Base Excess VBG Potassium Sodium 136 Chloride 103 Glucose Lactate FiO2 Potassium 4.3 Carbon Dioxide 25 Anion Gap 12 BUN 45 H Creatinine 1.8 H Est GFR ( Amer) 45 Est GFR (Non-Af Amer) 37 POC Glucose (mg/dL) 87 Random Glucose 101 Calcium 8.3 L Venous Blood Potassium Urine Color Urine Appearance Urine pH Ur Specific Olla Urine Protein Urine Glucose (UA) Urine Ketones Urine Blood Urine Nitrate Urine Bilirubin Urine Urobilinogen Ur Leukocyte Esterase Urine RBC Urine WBC 12/19/17 06:51 WBC RBC Hgb Hct MCV MCH MCHC RDW Plt Count MPV pO2 VBG pH VBG pCO2 VBG HCO3 VBG Total CO2 VBG O2 Sat (Calc) VBG Base Excess VBG Potassium Sodium Chloride Glucose Lactate FiO2 Potassium Carbon Dioxide Anion Gap BUN Creatinine Est GFR ( Amer) Est GFR (Non-Af Amer) POC Glucose (mg/dL) 70 Random Glucose Calcium Venous Blood Potassium Urine Color Urine Appearance Urine pH Ur Specific Olla Urine Protein Urine Glucose (UA) Urine Ketones Urine Blood Urine Nitrate Urine Bilirubin Urine Urobilinogen Ur Leukocyte Esterase Urine RBC Urine WBC Fingerstick Blood Sugar Results: 70 Review of Systems - Constitutional Constitutional: absent: Fever, Chills - EENT Eyes: absent: Blurred Vision, Change in Vision - Cardiovascular Cardiovascular: absent: Chest Pain, Dyspnea - Respiratory Respiratory: absent: Cough, Dyspnea - Gastrointestinal Gastrointestinal: absent: Abdominal Pain, Diarrhea, Melena, Nausea, Vomiting - Genitourinary Genitourinary: absent: Dysuria - Musculoskeletal Musculoskeletal: absent: Back Pain - Neurological Neurological: absent: Dizziness, Numbness, Weakness - Psychiatric Psychiatric: UNREMARKABLE. absent: Anxiety, Confusion, Depression - Endocrine Endocrine: UNREMARKABLE - Hematologic/Lymphatic Hematologic: UNREMARKABLE Assessment/Plan - Assessment and Plan (Free Text) Assessment: 72 M PMH DM II, hypothyroidism, COPD, CRF, recent admission for osteo on IV antibiotics, A fib on eliquis with no history of previous GI disorders transferred from [facility] for anemia with a hgb of 5.4. s/p IV Venofer x3 days also found to be hyperkalemic and in FABRICIO. A/P Neuro: -AAOx3 -fatigue, weakness resolved CV: -atrial fibrillation on eliquis and cardizem; eliquis held in lieu of upper GI bleed -maintain map>65 -maintain normotensive Pulmonary: -no intervention needed at this moment -CXR reveals no active disease -maintain spO2>92% Endocrine: -episodes of hypoglycemia, continue wtih D5/0.45 NS. -Hypothyroid continue to treat with synthroid -maintain euglycemia and normothermia Renal: -presented with hyperkalemia which was treated with Insulin Regular 5 units IVP. -FABRICIO improved with fluid resuscitation Gastrointestinal: -UGI bleed, no more episodes of melena overnight -H&H improved -continue wtih protonix drip -EGD scheduled for afternoon Heme -Anemia secondary to upper GI bleed. -Hgb stable to 8.8 s/p 3 transfusions of PRBCs DVT/GI prophylaxis with SCDs and Protonix <Duncan Mueller - Last Filed: 12/20/17 14:06> CCU Objective - Vital Signs / Intake & Output Vital Signs (Last 4 hours): Vital Signs Pulse Resp 12/20/17 10:51 74 20 12/20/17 10:50 78 13 12/20/17 10:49 79 19 12/20/17 10:48 77 12 12/20/17 10:47 76 12 12/20/17 10:46 81 14 12/20/17 10:45 76 21 12/20/17 10:44 77 15 12/20/17 10:43 76 13 12/20/17 10:42 78 13 12/20/17 10:41 79 14 12/20/17 10:40 80 12 12/20/17 10:39 82 17 12/20/17 10:38 99 H 33 H 12/20/17 10:37 77 14 12/20/17 10:36 84 14 12/20/17 10:35 81 12/20/17 10:34 83 13 12/20/17 10:33 82 14 12/20/17 10:32 81 15 12/20/17 10:31 81 12/20/17 10:30 88 12 12/20/17 10:29 86 12 12/20/17 10:28 78 11 L 12/20/17 10:27 86 11 L 12/20/17 10:26 83 11 L 12/20/17 10:25 82 11 L 12/20/17 10:24 86 12 12/20/17 10:23 90 12 12/20/17 10:22 89 11 L 12/20/17 10:21 93 H 10 L 12/20/17 10:20 98 H 13 12/20/17 10:19 105 H 30 H 12/20/17 10:18 103 H 13 12/20/17 10:17 106 H 15 12/20/17 10:16 109 H 17 12/20/17 10:15 111 H 17 12/20/17 10:14 109 H 38 H 12/20/17 10:13 99 H 18 12/20/17 10:12 91 H 13 12/20/17 10:11 94 H 12 12/20/17 10:10 94 H 18 12/20/17 10:09 95 H 14 12/20/17 10:08 96 H 14 12/20/17 10:07 94 H 13 12/20/17 10:06 98 H 11 L 12/20/17 10:05 95 H 12 Intake and Output (Last 8hrs): Intake & Output 12/19/17 12/20/17 12/20/17 22:59 06:59 14:59 Intake Total 1380 Output Total 480 Balance 900 Intake: IV 960 Left Upper arm 800 protonix 160 Oral 420 Output: Urine 480 Urine, Voided 480 Other: # Voids Urine, Voided 3 - Medications Active Medications: Active Medications Generic Name Dose Route Start Last Admin Trade Name Freq PRN Reason Stop Dose Admin Collagenase 0 gm 12/19/17 10:00 12/20/17 10:47 Santyl TOP 1 applic DAILY GLORIA Administration Glyburide 5 mg 12/19/17 10:00 12/20/17 11:30 Micronase PO 5 mg BID GLORIA Administration Dextrose/Sodium Chloride 1,000 mls @ 100 mls/hr 12/19/17 02:15 12/20/17 08:24 Dextrose 5%/0.45% Ns 1000 Ml IV 100 mls/hr .Q10H GLORIA Administration Meropenem 500 mg/ Sodium 50 mls @ 100 mls/hr 12/20/17 14:00 12/20/17 13:16 Chloride IVPB 12/29/17 14:01 100 mls/hr Q8 GLORIA Administration Protocol Insulin Human Regular 0 units 12/18/17 19:00 12/20/17 12:35 Humulin R Med SC 1 units Q4H GLORIA Administration Protocol Levothyroxine Sodium 100 mcg 12/19/17 10:00 12/20/17 09:54 Synthroid PO 100 mcg DAILY GLORIA Administration Lisinopril 10 mg 12/19/17 10:00 12/20/17 09:54 Zestril PO 10 mg DAILY GLORIA Administration Metoprolol Tartrate 50 mg 12/19/17 10:00 12/20/17 09:53 Lopressor PO 50 mg BID GLORIA Administration Nystatin 0 ea 12/19/17 10:00 12/20/17 10:47 Mycostatin Cream TOP 1 applic TID GLORIA Administration Pantoprazole Sodium 40 mg 12/19/17 22:00 12/20/17 09:55 Protonix Inj IVP 40 mg Q12 GLORIA Administration Prednisone 10 mg 12/19/17 10:00 12/20/17 09:55 Prednisone Tab PO 10 mg DAILY GLORIA Administration Sevelamer HCl 800 mg 12/19/17 10:00 12/20/17 09:54 Renagel PO 800 mg TID GLORIA Administration Silver Sulfadiazine 0 gm 12/19/17 10:00 12/20/17 10:47 Silvadene 1% 25 Gm TP 25 gm DAILY GLORIA Administration Verapamil HCl 120 mg 12/19/17 10:00 12/20/17 09:54 Calan Sr Tab PO 120 mg DAILY GLORIA Administration - Patient Studies Lab Studies: Lab Studies 12/20/17 12/20/17 12/20/17 Range/Units 11:16 06:13 06:13 WBC 5.8 (4.5-11.0) 10^3/ul RBC 2.68 L (3.5-6.1) 10^6/uL Hgb 8.3 L (14.0-18.0) g/dL Hct 23.7 L (42.0-52.0) % MCV 88.4 (80.0-105.0) fl MCH 31.0 (25.0-35.0) pg MCHC 35.0 (31.0-37.0) g/dl RDW 16.5 H (11.5-14.5) % Plt Count 105 L (120.0-450.0) 10^3/uL MPV 9.8 (7.0-11.0) fl Gran % 60.4 (50.0-68.0) % Lymph % (Auto) 24.9 (22.0-35.0) % Mobile % (Auto) 10.3 H (1.0-6.0) % Eos % (Auto) 4.2 (1.5-5.0) % Baso % (Auto) 0.2 (0.0-3.0) % Gran # 3.48 (1.4-6.5) Lymph # (Auto) 1.4 (1.2-3.4) Mobile # (Auto) 0.6 (0.1-0.6) Eos # (Auto) 0.2 (0.0-0.7) Baso # (Auto) 0.01 (0.0-2.0) K/mm3 Retic Count 0.17 L (0.5-1.5) % Sodium 136 (132-148) mmol/L Potassium 4.4 (3.6-5.0) mmol/L Chloride 105 (98-107) mmol/L Carbon Dioxide 25 (21-33) mmol/L Anion Gap 10 (10-20) BUN 37 H (7-21) mg/dL Creatinine 1.8 H (0.8-1.5) mg/dl Est GFR ( Amer) 45 Est GFR (Non-Af Amer) 37 POC Glucose (mg/dL) 152 H (65-110) mg/dL Random Glucose 75 (70-110) mg/dL Hemoglobin A1c (4.2-6.5) % Calcium 8.1 L (8.4-10.5) mg/dL Phosphorus 3.6 (2.5-4.5) mg/dL Magnesium 1.8 (1.7-2.2) mg/dL Ferritin ng/mL Total Bilirubin 0.3 (0.2-1.3) mg/dL AST 29 (17-59) U/L ALT 29 (7-56) U/L Alkaline Phosphatase 79 (38-126) U/L Total Protein 5.1 L (5.8-8.3) g/dL Albumin 2.6 L (3.0-4.8) g/dL Globulin 2.5 gm/dL Albumin/Globulin Ratio 1.0 L (1.1-1.8) Vitamin B12 (239-931) pg/mL Folate ng/mL 12/20/17 12/20/17 12/19/17 Range/Units 04:28 00:34 20:24 WBC (4.5-11.0) 10^3/ul RBC (3.5-6.1) 10^6/uL Hgb (14.0-18.0) g/dL Hct (42.0-52.0) % MCV (80.0-105.0) fl MCH (25.0-35.0) pg MCHC (31.0-37.0) g/dl RDW (11.5-14.5) % Plt Count (120.0-450.0) 10^3/uL MPV (7.0-11.0) fl Gran % (50.0-68.0) % Lymph % (Auto) (22.0-35.0) % Mobile % (Auto) (1.0-6.0) % Eos % (Auto) (1.5-5.0) % Baso % (Auto) (0.0-3.0) % Gran # (1.4-6.5) Lymph # (Auto) (1.2-3.4) Mobile # (Auto) (0.1-0.6) Eos # (Auto) (0.0-0.7) Baso # (Auto) (0.0-2.0) K/mm3 Retic Count (0.5-1.5) % Sodium (132-148) mmol/L Potassium (3.6-5.0) mmol/L Chloride (98-107) mmol/L Carbon Dioxide (21-33) mmol/L Anion Gap (10-20) BUN (7-21) mg/dL Creatinine (0.8-1.5) mg/dl Est GFR ( Amer) Est GFR (Non-Af Amer) POC Glucose (mg/dL) 109 232 H 308 H (65-110) mg/dL Random Glucose (70-110) mg/dL Hemoglobin A1c (4.2-6.5) % Calcium (8.4-10.5) mg/dL Phosphorus (2.5-4.5) mg/dL Magnesium (1.7-2.2) mg/dL Ferritin ng/mL Total Bilirubin (0.2-1.3) mg/dL AST (17-59) U/L ALT (7-56) U/L Alkaline Phosphatase (38-126) U/L Total Protein (5.8-8.3) g/dL Albumin (3.0-4.8) g/dL Globulin gm/dL Albumin/Globulin Ratio (1.1-1.8) Vitamin B12 (239-931) pg/mL Folate ng/mL 12/19/17 12/19/17 12/19/17 Range/Units 20:10 20:10 16:03 WBC 6.5 (4.5-11.0) 10^3/ul RBC 2.59 L (3.5-6.1) 10^6/uL Hgb 8.0 L (14.0-18.0) g/dL Hct 22.6 L (42.0-52.0) % MCV 87.3 (80.0-105.0) fl MCH 30.9 (25.0-35.0) pg MCHC 35.4 (31.0-37.0) g/dl RDW 16.3 H (11.5-14.5) % Plt Count 118 L (120.0-450.0) 10^3/uL MPV 10.5 (7.0-11.0) fl Gran % (50.0-68.0) % Lymph % (Auto) (22.0-35.0) % Mobile % (Auto) (1.0-6.0) % Eos % (Auto) (1.5-5.0) % Baso % (Auto) (0.0-3.0) % Gran # (1.4-6.5) Lymph # (Auto) (1.2-3.4) Mobile # (Auto) (0.1-0.6) Eos # (Auto) (0.0-0.7) Baso # (Auto) (0.0-2.0) K/mm3 Retic Count (0.5-1.5) % Sodium 130 L (132-148) mmol/L Potassium 5.1 H (3.6-5.0) mmol/L Chloride 100 (98-107) mmol/L Carbon Dioxide 22 (21-33) mmol/L Anion Gap 13 (10-20) BUN 39 H (7-21) mg/dL Creatinine 1.7 H (0.8-1.5) mg/dl Est GFR ( Amer) 48 Est GFR (Non-Af Amer) 40 POC Glucose (mg/dL) 160 H (65-110) mg/dL Random Glucose 298 H (70-110) mg/dL Hemoglobin A1c (4.2-6.5) % Calcium 7.8 L (8.4-10.5) mg/dL Phosphorus (2.5-4.5) mg/dL Magnesium (1.7-2.2) mg/dL Ferritin ng/mL Total Bilirubin (0.2-1.3) mg/dL AST (17-59) U/L ALT (7-56) U/L Alkaline Phosphatase (38-126) U/L Total Protein (5.8-8.3) g/dL Albumin (3.0-4.8) g/dL Globulin gm/dL Albumin/Globulin Ratio (1.1-1.8) Vitamin B12 (239-931) pg/mL Folate ng/mL 12/19/17 12/19/17 Range/Units 10:11 10:07 WBC (4.5-11.0) 10^3/ul RBC (3.5-6.1) 10^6/uL Hgb (14.0-18.0) g/dL Hct (42.0-52.0) % MCV (80.0-105.0) fl MCH (25.0-35.0) pg MCHC (31.0-37.0) g/dl RDW (11.5-14.5) % Plt Count (120.0-450.0) 10^3/uL MPV (7.0-11.0) fl Gran % (50.0-68.0) % Lymph % (Auto) (22.0-35.0) % Mobile % (Auto) (1.0-6.0) % Eos % (Auto) (1.5-5.0) % Baso % (Auto) (0.0-3.0) % Gran # (1.4-6.5) Lymph # (Auto) (1.2-3.4) Mobile # (Auto) (0.1-0.6) Eos # (Auto) (0.0-0.7) Baso # (Auto) (0.0-2.0) K/mm3 Retic Count (0.5-1.5) % Sodium (132-148) mmol/L Potassium (3.6-5.0) mmol/L Chloride (98-107) mmol/L Carbon Dioxide (21-33) mmol/L Anion Gap (10-20) BUN (7-21) mg/dL Creatinine (0.8-1.5) mg/dl Est GFR ( Amer) Est GFR (Non-Af Amer) POC Glucose (mg/dL) (65-110) mg/dL Random Glucose (70-110) mg/dL Hemoglobin A1c 7.2 H (4.2-6.5) % Calcium (8.4-10.5) mg/dL Phosphorus (2.5-4.5) mg/dL Magnesium (1.7-2.2) mg/dL Ferritin 992.0 ng/mL Total Bilirubin (0.2-1.3) mg/dL AST (17-59) U/L ALT (7-56) U/L Alkaline Phosphatase (38-126) U/L Total Protein (5.8-8.3) g/dL Albumin (3.0-4.8) g/dL Globulin gm/dL Albumin/Globulin Ratio (1.1-1.8) Vitamin B12 463 (239-931) pg/mL Folate 3.3 ng/mL Laboratory Results - last 24 hr 12/19/17 12/19/17 12/19/17 10:07 10:11 16:03 WBC RBC Hgb Hct MCV MCH MCHC RDW Plt Count MPV Gran % Lymph % (Auto) Mobile % (Auto) Eos % (Auto) Baso % (Auto) Gran # Lymph # (Auto) Mobile # (Auto) Eos # (Auto) Baso # (Auto) Retic Count Sodium Potassium Chloride Carbon Dioxide Anion Gap BUN Creatinine Est GFR ( Amer) Est GFR (Non-Af Amer) POC Glucose (mg/dL) 160 H Random Glucose Hemoglobin A1c 7.2 H Calcium Phosphorus Magnesium Ferritin 992.0 Total Bilirubin AST ALT Alkaline Phosphatase Total Protein Albumin Globulin Albumin/Globulin Ratio Vitamin B12 463 Folate 3.3 12/19/17 12/19/17 12/19/17 20:10 20:10 20:24 WBC 6.5 RBC 2.59 L Hgb 8.0 L Hct 22.6 L MCV 87.3 MCH 30.9 MCHC 35.4 RDW 16.3 H Plt Count 118 L MPV 10.5 Gran % Lymph % (Auto) Mobile % (Auto) Eos % (Auto) Baso % (Auto) Gran # Lymph # (Auto) Mobile # (Auto) Eos # (Auto) Baso # (Auto) Retic Count Sodium 130 L Potassium 5.1 H Chloride 100 Carbon Dioxide 22 Anion Gap 13 BUN 39 H Creatinine 1.7 H Est GFR ( Amer) 48 Est GFR (Non-Af Amer) 40 POC Glucose (mg/dL) 308 H Random Glucose 298 H Hemoglobin A1c Calcium 7.8 L Phosphorus Magnesium Ferritin Total Bilirubin AST ALT Alkaline Phosphatase Total Protein Albumin Globulin Albumin/Globulin Ratio Vitamin B12 Folate 12/20/17 12/20/17 12/20/17 00:34 04:28 06:13 WBC 5.8 RBC 2.68 L Hgb 8.3 L Hct 23.7 L MCV 88.4 MCH 31.0 MCHC 35.0 RDW 16.5 H Plt Count 105 L MPV 9.8 Gran % 60.4 Lymph % (Auto) 24.9 Mobile % (Auto) 10.3 H Eos % (Auto) 4.2 Baso % (Auto) 0.2 Gran # 3.48 Lymph # (Auto) 1.4 Mobile # (Auto) 0.6 Eos # (Auto) 0.2 Baso # (Auto) 0.01 Retic Count 0.17 L Sodium Potassium Chloride Carbon Dioxide Anion Gap BUN Creatinine Est GFR ( Amer) Est GFR (Non-Af Amer) POC Glucose (mg/dL) 232 H 109 Random Glucose Hemoglobin A1c Calcium Phosphorus Magnesium Ferritin Total Bilirubin AST ALT Alkaline Phosphatase Total Protein Albumin Globulin Albumin/Globulin Ratio Vitamin B12 Folate 12/20/17 12/20/17 06:13 11:16 WBC RBC Hgb Hct MCV MCH MCHC RDW Plt Count MPV Gran % Lymph % (Auto) Mobile % (Auto) Eos % (Auto) Baso % (Auto) Gran # Lymph # (Auto) Mobile # (Auto) Eos # (Auto) Baso # (Auto) Retic Count Sodium 136 Potassium 4.4 Chloride 105 Carbon Dioxide 25 Anion Gap 10 BUN 37 H Creatinine 1.8 H Est GFR ( Amer) 45 Est GFR (Non-Af Amer) 37 POC Glucose (mg/dL) 152 H Random Glucose 75 Hemoglobin A1c Calcium 8.1 L Phosphorus 3.6 Magnesium 1.8 Ferritin Total Bilirubin 0.3 AST 29 ALT 29 Alkaline Phosphatase 79 Total Protein 5.1 L Albumin 2.6 L Globulin 2.5 Albumin/Globulin Ratio 1.0 L Vitamin B12 Folate Critical Care Progress Note - Nutrition Nutrition: Nutrition Category Date Time Status Liquid Diet [DIET] Diets 12/20/17 Breakfast Ordered Attending/Attestation - Attestation I have personally seen and examined this patient.: Yes I have fully participated in the care of the patient.: Yes I have reviewed all pertinent clinical information: Yes Notes (Text): 12/20/17 14:04 72 yo male with upper GI bleed on eliquis, responded well to PRBC transfusion, hemodynamically and respiratory rangel stable. Going for EGD today. NPO, IVF, Protonix drip, serial CBC ccm time 40 min
--- NOTE | 2017-12-19 08:02 | CON ---
DATE: 12/18/2017 HISTORY OF PRESENT ILLNESS: Patient is a 72-year-old gentleman with history of COPD, CHF, paroxysmal atrial fibrillation, on Eliquis, who was recently in the hospital for severe community-acquired pneumonia, complicated by severe sepsis with multiorgan system failure. Patient did very well at that time and was discharged shortly after a short period of mechanical ventilatory support. At this time, patient reports that he was feeling a little bit weak and tired as well as pale. Subsequent CBC performed at his place of residence ([facility]) revealed very low hemoglobin. Coincidentally around the same time, patient reported black stool and some shortness of breath. Patient reports that he is being fatigued and tired over the last couple of days. No nausea, no vomiting. No chest pain. No fever, no chills, no sweats. PAST MEDICAL HISTORY: As above. Patient also has diabetes mellitus type 2. Patient also recently recovered from osteomyelitis for which he undergone debridement. FAMILY HISTORY: Noncontributory. SOCIAL HISTORY: Patient is an ex-smoker. No alcohol or illicit drug abuse. ALLERGIES: NKDA. MEDICATIONS AT HOME: Prednisone, Percocet, Micronase, verapamil, Renagel, Protonix, nystatin, metoprolol, meropenem, lisinopril, linezolid, Synthroid, Eliquis. REVIEW OF SYSTEMS: Review of 12-organ system other than mentioned in history present illness is negative. PHYSICAL EXAMINATION: VITAL SIGNS: Blood pressure 115/59, temperature 97.3, heart rate 82, oxygen saturation 99% on room air, respiratory rate 18. HEENT: Head and neck atraumatic. LUNGS: Clear auscultation bilaterally. HEART: Regular rate and rhythm. S1 and S2 normal. ABDOMEN: Soft, mildly tender in left lower quadrant. No rebound tenderness. No peritoneal signs. No voluntary or involuntary guarding. MUSCULOSKELETAL: No C/C/E. NEUROLOGIC: Patient moves all extremities spontaneously. SKIN: Moist. PSYCHIATRIC: Patient is alert and oriented x3. LABORATORY DATA: WBC 8.4, hemoglobin 5.3, platelet count 117, eosinophils 0. Sodium 132, potassium 5.6, chloride 98, carbon dioxide 22, BUN 51, creatinine 2 down from 3.1, glucose 266, AST 25, ALT 38, bilirubin 0.3, troponin less than 0.01, lipase 473, PTT 27.8, PT 19.2. ASSESSMENT AND PLAN: This 72-year-old gentleman who presented with what appears to be upper gastrointestinal bleed; however, hemodynamically stable. At present time, we will proceed with n.p.o., IV fluids, maintaining hemoglobin above 8. GI consult to consider endoscopy. At present time, as the patient is hemodynamically and clinically stable, I would rather proceed with watchful observation, then actively "reversing" Eliquis with 4-factor prothrombin complex concentrate. Patient will be going to ICU for overnight observation and if his bleeding intensifies or he clinically deteriorates, 4-factor prothrombin complex concentrate will be considered. We will continue to target euvolemia, euglycemia, normothermia, and oxygen saturation more than 90%. We are awaiting for VBG or lactic acid. We will correct electrolytes. We will get Nephrology involved. ccm time 40 min Duncan Mueller MD MTDD
[2017-12-19 08:49] LABS: HEMOGLOBIN 8.5 g/dL (14.0-18.0); MEAN CELL VOLUME 86.5 fl (80.0-105.0); MEAN CORPUSCULAR HEMOGLOBIN 30.9 pg (25.0-35.0); MEAN CORPUSCULAR HGB CONC 35.7 g/dl (31.0-37.0); MEAN PLATELET VOLUME 10.4 fl (7.0-11.0); RBC 2.75 10^6/uL (3.5-6.1); RED CELL DISTRIBUTION WIDTH 15.9 % (11.5-14.5); WHITE BLOOD COUNT 5.9 10^3/ul (4.5-11.0)
[2017-12-19] MEDS: Levothyroxine 100 MCG TAB PO SCH (09:05)
[2017-12-19 09:28] LABS: CALCIUM 8.3 mg/dL (8.4-10.5)
[2017-12-19] MEDS ORDERED: [UNRECOGNIZED DRUG - OTHER] IVPB SCH (10:00)
[2017-12-19] MEDS ORDERED: D5W IVPB SCH (10:00)
[2017-12-19] MEDS ORDERED: LINEZOLID IVPB SCH (10:00)
[2017-12-19] MEDS ORDERED: Non Formulary Medication (Meropenem [Merrem Iv] 500 MG) IVPB SCH (10:00)
[2017-12-19] MEDS: Meropenem 500 MG in NS 0.9% 50 ML IVPB SCH ×2 (10:19→22:08)
[2017-12-19] MEDS: Nystatin 100,000 Units/gm Cream(15 gm) TOP SCH ×3 (10:20→17:24)
[2017-12-19] MEDS: Collagenase 250 Units/gm Ointment(30 gm) TOP SCH (10:21)
[2017-12-19] MEDS: Linezolid 600 mg in D5W 300 ml 600 MG/300 ML BAG IVPB SCH ×2 (10:22→22:08)
[2017-12-19] MEDS: Silver Sulfadiazine 1% Cream (25 gm) TP SCH (10:22)
--- NOTE | 2017-12-19 10:40 | RAD ---
HISTORY: GI bleed. COMPARISON: 11/18/2017. FINDINGS: LUNGS: Continued improvement right lower lobe infiltrate. PLEURA: No significant pleural effusion identified, no pneumothorax apparent. CARDIOVASCULAR: No radiographic findings to suggest acute or significant cardiovascular disease. OSSEOUS STRUCTURES: No significant abnormalities. VISUALIZED UPPER ABDOMEN: Normal. OTHER FINDINGS: None. IMPRESSION: Near complete resolution right lower lobe infiltrate.
[2017-12-19] MEDS: Verapamil 120 mg ER Tab PO SCH (12:24)
[2017-12-19 13:00] LABS: HEMOGLOBIN 8.2 g/dL (14.0-18.0); MEAN CELL VOLUME 86.7 fl (80.0-105.0); MEAN CORPUSCULAR HEMOGLOBIN 31.2 pg (25.0-35.0); MEAN PLATELET VOLUME 10.6 fl (7.0-11.0); RBC 2.63 10^6/uL (3.5-6.1); RED CELL DISTRIBUTION WIDTH 16.2 % (11.5-14.5)
[2017-12-19 13:12] LABS: CALCIUM 8.1 mg/dL (8.4-10.5); IRON 206 ug/dL (45-180)
[2017-12-19 13:21] LABS: % IRON SATURATION 84 % (20-55); TOTAL IRON BINDING CAPACITY 244 ug/dL (261-462)
[2017-12-19 13:29] LABS: FREE T4 1.17 ng/dL (0.78-2.19)
[2017-12-19] MEDS ORDERED: Sodium Chloride 0.9% 1,000 ML IV SCH (15:30)
[2017-12-19] MEDS ORDERED: Sodium Chloride 0.9% 500 ML IV STA (15:52)
[2017-12-19 17:56] LABS: FOLATE 3.3 ng/mL
--- NOTE | 2017-12-19 17:56 | CP.PCM.CON ---
<Rodriguez Carter - Last Filed: 12/19/17 17:50> History of Present Illness - History of Present Illness History of Present Illness: GI Consult note. Dr Lagos 72yo M with PMHx of Afib on eliquis, COPD, CHF, recent hospitalization here for evaluation of abnormal labs. As per patient he was sent in from longterm due to abnormal labs. He does report some lethargy but otherwise denies any complaints. No N/V/D. No Bowel changes. Denies melena, no hematochezia. No episodes of bleeding. No abdominal pain. No F/C. In ED, Hb was 5.3 and patient received 3U PRBCs overnight with AM Hb 8.8. Patient still denies any complaints. PMD: Jaz Ramon PMHx: DM, Afib on eliquis, COPD, CHF Social Hx: Previous smoker, Denies ETOH, Denies illicit drugs NKDA Review of Systems - Review of Systems All systems: reviewed and no additional remarkable complaints except - Constitutional Constitutional: Lethargy. absent: Anorexia, Chills, Fever - EENT Ears: absent: Decreased Hearing Nose/Mouth/Throat: absent: Epistaxis, Nasal Congestion - Cardiovascular Cardiovascular: absent: Chest Pain, Dyspnea - Respiratory Respiratory: absent: Cough, Dyspnea - Gastrointestinal Gastrointestinal: absent: Abdominal Pain, Bloating, Hematemesis, Hematochezia, Melena, Nausea, Vomiting - Genitourinary Genitourinary: absent: Difficulty Urinating, Dysuria - Integumentary Integumentary: absent: Alopecia Past Patient History - Infectious Disease Hx of Infectious Diseases: None - Tetanus Immunizations Tetanus Immunization: Unknown - Past Social History Smoking Status: Light Smoker < 10 Cigarettes Daily - CARDIAC Hx Cardiac Disorders: Yes Hx Congestive Heart Failure: Yes Hx Hypertension: Yes - PULMONARY Hx Respiratory Disorders: Yes Hx Chronic Obstructive Pulmonary Disease (COPD): Yes - NEUROLOGICAL Hx Neurological Disorder: No - HEENT Hx HEENT Problems: No - RENAL Hx Chronic Kidney Disease: Yes Hx Renal Failure: Yes - ENDOCRINE/METABOLIC Hx Endocrine Disorders: Yes Hx Diabetes Mellitus Type 2: Yes Hx Hypothyroidism: Yes - HEMATOLOGICAL/ONCOLOGICAL Hx Blood Transfusions: Yes Hx Blood Transfusion Reaction: No - INTEGUMENTARY Hx Dermatological Problems: No - MUSCULOSKELETAL/RHEUMATOLOGICAL Hx Musculoskeletal Disorders: Yes Hx Arthritis: Yes Hx Falls: Yes Hx Unsteady Gait: Yes Other/Comment: uses wheel at [email or web address] - GASTROINTESTINAL Hx Gastrointestinal Disorders: No - GENITOURINARY/GYNECOLOGICAL Hx Genitourinary Disorders: No - PSYCHIATRIC Hx Psychophysiologic Disorder: No - SURGICAL HISTORY Hx Surgeries: Yes - ANESTHESIA Hx Anesthesia Reactions: No Hx Malignant Hyperthermia: No Meds Allergies/Adverse Reactions: Allergies Allergy/AdvReac Type Severity Reaction Status Date / Time No Known Allergies Allergy Verified 12/18/17 17:36 - Medications Medications: Current Medications Collagenase (Santyl) 0 gm TOP DAILY [facility] Last Admin: 12/19/17 10:21 Dose: 1 applic Glyburide (Micronase) 5 mg PO BID [facility] Last Admin: 12/19/17 17:22 Dose: Not Given Dextrose/Sodium Chloride (Dextrose 5%/0.45% Ns 1000 Ml) 1,000 mls @ 100 mls/hr IV .Q10H [facility] Last Admin: 12/19/17 17:23 Dose: 100 mls/hr Linezolid (Zyvox 600mg/300ml D5w) 600 mg in 300 mls @ 300 mls/hr IVPB Q12 [facility] Last Admin: 12/19/17 10:22 Dose: 300 mls/hr Meropenem 500 mg/ Sodium (Chloride) 50 mls @ 100 mls/hr IVPB Q12 [facility] Last Admin: 12/19/17 10:19 Dose: 100 mls/hr Insulin Human Regular (Humulin R Med) 0 units SC Q4H [facility] PRN Reason: Protocol Last Admin: 12/19/17 15:00 Dose: Not Given Levothyroxine Sodium (Synthroid) 100 mcg PO DAILY [facility] Last Admin: 12/19/17 09:05 Dose: 100 mcg Lisinopril (Zestril) 10 mg PO DAILY [facility] Last Admin: 12/19/17 10:22 Dose: 10 mg Metoprolol Tartrate (Lopressor) 50 mg PO BID [facility] Last Admin: 12/19/17 17:21 Dose: Not Given Nystatin (Mycostatin Cream) 0 ea TOP TID [facility] Last Admin: 12/19/17 17:24 Dose: 1 applic Pantoprazole Sodium (Protonix Inj) 40 mg IVP Q12 [facility] Prednisone (Prednisone Tab) 10 mg PO DAILY [facility] Last Admin: 12/19/17 10:21 Dose: 10 mg Sevelamer HCl (Renagel) 800 mg PO TID [facility] Last Admin: 12/19/17 17:23 Dose: 800 mg Silver Sulfadiazine (Silvadene 1% 25 Gm) 0 gm TP DAILY [facility] Last Admin: 12/19/17 10:22 Dose: 25 gm Verapamil HCl (Calan Sr Tab) 120 mg PO DAILY [facility] Last Admin: 12/19/17 12:24 Dose: 120 mg Physical Exam - Constitutional Appears: Well, Non-toxic, No Acute Distress - Head Exam Head Exam: ATRAUMATIC, NORMAL INSPECTION, NORMOCEPHALIC - Eye Exam Eye Exam: EOMI - ENT Exam ENT Exam: Mucous Membranes Moist - Respiratory Exam Respiratory Exam: NORMAL BREATHING PATTERN - Cardiovascular Exam Cardiovascular Exam: absent: JVD - GI/Abdominal Exam GI & Abdominal Exam: Soft. absent: Distended, Firm, Guarding, Rigid, Tenderness Additional comments: small reducible umbilical hernia - Extremities Exam Extremities exam: Positive for: normal inspection. Negative for: calf tenderness - Neurological Exam Neurological exam: Alert, Oriented x3 - Skin Skin Exam: Dry, Intact, Pallor, Warm Results - Vital Signs Recent Vital Signs: Last Vital Signs Temp 98.4 F 12/19/17 15:55 Pulse 73 12/19/17 17:21 Resp 18 12/19/17 15:55 BP 94/34 L 12/19/17 17:21 Pulse Ox 98 12/19/17 15:55 - Labs Result Diagrams: 12/19/17 12:50 12/19/17 12:50 Labs: Laboratory Results - last 24 hr 12/18/17 12/18/17 12/18/17 19:40 20:03 21:10 WBC RBC Hgb Hct MCV MCH MCHC RDW Plt Count MPV pO2 136 H VBG pH 7.38 VBG pCO2 39.0 L VBG HCO3 23.1 VBG Total CO2 24.3 VBG O2 Sat (Calc) 98.3 H VBG Base Excess -1.8 L VBG Potassium 5.1 Sodium 131.0 L Chloride 103.0 Glucose 190 H Lactate 3.6 H FiO2 21.0 Potassium Carbon Dioxide Anion Gap BUN Creatinine Est GFR ( Amer) Est GFR (Non-Af Amer) POC Glucose (mg/dL) 215 H Random Glucose Hemoglobin A1c Calcium Phosphorus Magnesium Iron TIBC % Saturation Lipase Free T4 TSH 3rd Generation Venous Blood Potassium 5.1 Urine Color Yellow Urine Appearance Sl cloudy Urine pH 6.0 Ur Specific [place] 1.015 Urine Protein Negative Urine Glucose (UA) Negative Urine Ketones Negative Urine Blood Trace-intact H Urine Nitrate Negative Urine Bilirubin Negative Urine Urobilinogen 0.2 Ur Leukocyte Esterase Small H Urine RBC 0 - 2 Urine WBC 2 - 5 12/18/17 12/19/17 12/19/17 23:27 03:04 03:34 WBC RBC Hgb Hct MCV MCH MCHC RDW Plt Count MPV pO2 VBG pH VBG pCO2 VBG HCO3 VBG Total CO2 VBG O2 Sat (Calc) VBG Base Excess VBG Potassium Sodium Chloride Glucose Lactate FiO2 Potassium Carbon Dioxide Anion Gap BUN Creatinine Est GFR ( Amer) Est GFR (Non-Af Amer) POC Glucose (mg/dL) 87 22 L* 217 H Random Glucose Hemoglobin A1c Calcium Phosphorus Magnesium Iron TIBC % Saturation Lipase Free T4 TSH 3rd Generation Venous Blood Potassium Urine Color Urine Appearance Urine pH Ur Specific [place] Urine Protein Urine Glucose (UA) Urine Ketones Urine Blood Urine Nitrate Urine Bilirubin Urine Urobilinogen Ur Leukocyte Esterase Urine RBC Urine WBC 12/19/17 12/19/17 12/19/17 04:33 05:36 05:45 WBC RBC Hgb Hct MCV MCH MCHC RDW Plt Count MPV pO2 86 H VBG pH 7.41 VBG pCO2 41.0 VBG HCO3 26.0 VBG Total CO2 27.3 VBG O2 Sat (Calc) 98.0 H VBG Base Excess 1.2 VBG Potassium 4.3 Sodium 135.0 Chloride 105.0 Glucose 105 Lactate 1.8 FiO2 21.0 Potassium Carbon Dioxide Anion Gap BUN Creatinine Est GFR ( Amer) Est GFR (Non-Af Amer) POC Glucose (mg/dL) 136 H 96 Random Glucose Hemoglobin A1c Calcium Phosphorus Magnesium Iron TIBC % Saturation Lipase Free T4 TSH 3rd Generation Venous Blood Potassium 4.3 Urine Color Urine Appearance Urine pH Ur Specific [place] Urine Protein Urine Glucose (UA) Urine Ketones Urine Blood Urine Nitrate Urine Bilirubin Urine Urobilinogen Ur Leukocyte Esterase Urine RBC Urine WBC 12/19/17 12/19/17 12/19/17 05:45 05:45 05:45 WBC 6.2 D RBC 2.83 L Hgb 8.8 L D Hct 24.6 L MCV 86.9 D MCH 31.1 MCHC 35.8 RDW 15.4 H Plt Count 131 MPV 9.7 pO2 VBG pH VBG pCO2 VBG HCO3 VBG Total CO2 VBG O2 Sat (Calc) VBG Base Excess VBG Potassium Sodium 136 Chloride 103 Glucose Lactate FiO2 Potassium 4.3 Carbon Dioxide 25 Anion Gap 12 BUN 45 H Creatinine 1.8 H Est GFR ( Amer) 45 Est GFR (Non-Af Amer) 37 POC Glucose (mg/dL) Random Glucose 101 Hemoglobin A1c Calcium 8.3 L Phosphorus 3.5 Magnesium 1.9 Iron TIBC % Saturation Lipase 417 H Free T4 TSH 3rd Generation Venous Blood Potassium Urine Color Urine Appearance Urine pH Ur Specific [place] Urine Protein Urine Glucose (UA) Urine Ketones Urine Blood Urine Nitrate Urine Bilirubin Urine Urobilinogen Ur Leukocyte Esterase Urine RBC Urine WBC 12/19/17 12/19/17 12/19/17 06:08 06:51 08:40 WBC 5.9 RBC 2.75 L Hgb 8.5 L Hct 23.8 L MCV 86.5 MCH 30.9 MCHC 35.7 RDW 15.9 H Plt Count 124 MPV 10.4 pO2 VBG pH VBG pCO2 VBG HCO3 VBG Total CO2 VBG O2 Sat (Calc) VBG Base Excess VBG Potassium Sodium Chloride Glucose Lactate FiO2 Potassium Carbon Dioxide Anion Gap BUN Creatinine Est GFR ( Amer) Est GFR (Non-Af Amer) POC Glucose (mg/dL) 87 70 Random Glucose Hemoglobin A1c Calcium Phosphorus Magnesium Iron TIBC % Saturation Lipase Free T4 TSH 3rd Generation Venous Blood Potassium Urine Color Urine Appearance Urine pH Ur Specific [place] Urine Protein Urine Glucose (UA) Urine Ketones Urine Blood Urine Nitrate Urine Bilirubin Urine Urobilinogen Ur Leukocyte Esterase Urine RBC Urine WBC 12/19/17 12/19/17 12/19/17 08:40 08:56 08:58 WBC RBC Hgb Hct MCV MCH MCHC RDW Plt Count MPV pO2 VBG pH VBG pCO2 VBG HCO3 VBG Total CO2 VBG O2 Sat (Calc) VBG Base Excess VBG Potassium Sodium 135 Chloride 103 Glucose Lactate FiO2 Potassium 4.2 Carbon Dioxide 26 Anion Gap 10 BUN 43 H Creatinine 1.8 H Est GFR ( Amer) 45 Est GFR (Non-Af Amer) 37 POC Glucose (mg/dL) 35 L* 40 L Random Glucose 38 L* D Hemoglobin A1c Calcium 8.3 L Phosphorus Magnesium Iron TIBC % Saturation Lipase Free T4 TSH 3rd Generation Venous Blood Potassium Urine Color Urine Appearance Urine pH Ur Specific [place] Urine Protein Urine Glucose (UA) Urine Ketones Urine Blood Urine Nitrate Urine Bilirubin Urine Urobilinogen Ur Leukocyte Esterase Urine RBC Urine WBC 12/19/17 12/19/17 12/19/17 10:01 10:07 11:59 WBC RBC Hgb Hct MCV MCH MCHC RDW Plt Count MPV pO2 VBG pH VBG pCO2 VBG HCO3 VBG Total CO2 VBG O2 Sat (Calc) VBG Base Excess VBG Potassium Sodium Chloride Glucose Lactate FiO2 Potassium Carbon Dioxide Anion Gap BUN Creatinine Est GFR ( Amer) Est GFR (Non-Af Amer) POC Glucose (mg/dL) 117 H 39 L Random Glucose Hemoglobin A1c 7.2 H Calcium Phosphorus Magnesium Iron TIBC % Saturation Lipase Free T4 TSH 3rd Generation Venous Blood Potassium Urine Color Urine Appearance Urine pH Ur Specific [place] Urine Protein Urine Glucose (UA) Urine Ketones Urine Blood Urine Nitrate Urine Bilirubin Urine Urobilinogen Ur Leukocyte Esterase Urine RBC Urine WBC 12/19/17 12/19/17 12/19/17 12:50 12:50 12:50 WBC 6.0 RBC 2.63 L Hgb 8.2 L Hct 22.8 L MCV 86.7 MCH 31.2 MCHC 36.0 RDW 16.2 H Plt Count 121 MPV 10.6 pO2 VBG pH VBG pCO2 VBG HCO3 VBG Total CO2 VBG O2 Sat (Calc) VBG Base Excess VBG Potassium Sodium 132 Chloride 100 Glucose Lactate FiO2 Potassium 4.0 Carbon Dioxide 26 Anion Gap 10 BUN 40 H Creatinine 1.6 H Est GFR ( Amer) 51 Est GFR (Non-Af Amer) 42 POC Glucose (mg/dL) Random Glucose 173 H Hemoglobin A1c Calcium 8.1 L Phosphorus Magnesium Iron TIBC % Saturation Lipase Free T4 1.17 TSH 3rd Generation 0.44 L Venous Blood Potassium Urine Color Urine Appearance Urine pH Ur Specific [place] Urine Protein Urine Glucose (UA) Urine Ketones Urine Blood Urine Nitrate Urine Bilirubin Urine Urobilinogen Ur Leukocyte Esterase Urine RBC Urine WBC 12/19/17 12/19/17 12:50 13:28 WBC RBC Hgb Hct MCV MCH MCHC RDW Plt Count MPV pO2 VBG pH VBG pCO2 VBG HCO3 VBG Total CO2 VBG O2 Sat (Calc) VBG Base Excess VBG Potassium Sodium Chloride Glucose Lactate FiO2 Potassium Carbon Dioxide Anion Gap BUN Creatinine Est GFR ( Amer) Est GFR (Non-Af Amer) POC Glucose (mg/dL) 125 H Random Glucose Hemoglobin A1c Calcium Phosphorus Magnesium Iron 206 H TIBC 244 L % Saturation 84 H Lipase Free T4 TSH 3rd Generation Venous Blood Potassium Urine Color Urine Appearance Urine pH Ur Specific [place] Urine Protein Urine Glucose (UA) Urine Ketones Urine Blood Urine Nitrate Urine Bilirubin Urine Urobilinogen Ur Leukocyte Esterase Urine RBC Urine WBC Assessment & Plan - Assessment and Plan (Free Text) Assessment: 72yo M with Anemia. r/o Upper GIB - Taken for EGD today. (Please see endoscopy report) Plan: - We will plan for possible push enteroscopy, and colonoscopy on Sunday - continue to monitor H/H - PPI - Medical maximization. - f/u cardiology recs Further recs as per Dr. Yolis Carter PGY1 <Graciela Lagos V - Last Filed: 12/19/17 23:41> Meds - Medications Medications: Current Medications Collagenase (Santyl) 0 gm TOP DAILY [facility] Last Admin: 12/19/17 10:21 Dose: 1 applic Glyburide (Micronase) 5 mg PO BID [facility] Last Admin: 12/19/17 17:22 Dose: Not Given Dextrose/Sodium Chloride (Dextrose 5%/0.45% Ns 1000 Ml) 1,000 mls @ 100 mls/hr IV .Q10H [facility] Last Admin: 12/19/17 17:23 Dose: 100 mls/hr Linezolid (Zyvox 600mg/300ml D5w) 600 mg in 300 mls @ 300 mls/hr IVPB Q12 [facility] Last Admin: 12/19/17 22:08 Dose: 300 mls/hr Meropenem 500 mg/ Sodium (Chloride) 50 mls @ 100 mls/hr IVPB Q12 [facility] Last Admin: 12/19/17 22:08 Dose: 100 mls/hr Insulin Human Regular (Humulin R Med) 0 units SC Q4H [facility] PRN Reason: Protocol Last Admin: 12/19/17 22:08 Dose: 3 units Levothyroxine Sodium (Synthroid) 100 mcg PO DAILY [facility] Last Admin: 12/19/17 09:05 Dose: 100 mcg Lisinopril (Zestril) 10 mg PO DAILY [facility] Last Admin: 12/19/17 10:22 Dose: 10 mg Metoprolol Tartrate (Lopressor) 50 mg PO BID [facility] Last Admin: 12/19/17 17:21 Dose: Not Given Nystatin (Mycostatin Cream) 0 ea TOP TID [facility] Last Admin: 12/19/17 17:24 Dose: 1 applic Pantoprazole Sodium (Protonix Inj) 40 mg IVP Q12 [facility] Last Admin: 12/19/17 22:09 Dose: 40 mg Prednisone (Prednisone Tab) 10 mg PO DAILY [facility] Last Admin: 12/19/17 10:21 Dose: 10 mg Sevelamer HCl (Renagel) 800 mg PO TID [facility] Last Admin: 12/19/17 17:23 Dose: 800 mg Silver Sulfadiazine (Silvadene 1% 25 Gm) 0 gm TP DAILY [facility] Last Admin: 12/19/17 10:22 Dose: 25 gm Verapamil HCl (Calan Sr Tab) 120 mg PO DAILY [facility] Last Admin: 12/19/17 12:24 Dose: 120 mg Results - Vital Signs Recent Vital Signs: Last Vital Signs Temp 98.4 F 12/19/17 15:55 Pulse 73 12/19/17 17:21 Resp 18 12/19/17 15:55 BP 94/34 L 12/19/17 17:21 Pulse Ox 98 12/19/17 15:55 - Labs Result Diagrams: 12/19/17 20:10 12/19/17 20:10 Labs: Laboratory Results - last 24 hr 12/18/17 12/19/17 12/19/17 23:27 03:04 03:34 WBC RBC Hgb Hct MCV MCH MCHC RDW Plt Count MPV pO2 VBG pH VBG pCO2 VBG HCO3 VBG Total CO2 VBG O2 Sat (Calc) VBG Base Excess VBG Potassium Sodium Chloride Glucose Lactate FiO2 Potassium Carbon Dioxide Anion Gap BUN Creatinine Est GFR ( Amer) Est GFR (Non-Af Amer) POC Glucose (mg/dL) 87 22 L* 217 H Random Glucose Hemoglobin A1c Calcium Phosphorus Magnesium Iron TIBC % Saturation Ferritin Lipase Vitamin B12 Folate Free T4 TSH 3rd Generation Venous Blood Potassium 12/19/17 12/19/17 12/19/17 04:33 05:36 05:45 WBC RBC Hgb Hct MCV MCH MCHC RDW Plt Count MPV pO2 86 H VBG pH 7.41 VBG pCO2 41.0 VBG HCO3 26.0 VBG Total CO2 27.3 VBG O2 Sat (Calc) 98.0 H VBG Base Excess 1.2 VBG Potassium 4.3 Sodium 135.0 Chloride 105.0 Glucose 105 Lactate 1.8 FiO2 21.0 Potassium Carbon Dioxide Anion Gap BUN Creatinine Est GFR ( Amer) Est GFR (Non-Af Amer) POC Glucose (mg/dL) 136 H 96 Random Glucose Hemoglobin A1c Calcium Phosphorus Magnesium Iron TIBC % Saturation Ferritin Lipase Vitamin B12 Folate Free T4 TSH 3rd Generation Venous Blood Potassium 4.3 12/19/17 12/19/17 12/19/17 05:45 05:45 05:45 WBC 6.2 D RBC 2.83 L Hgb 8.8 L D Hct 24.6 L MCV 86.9 D MCH 31.1 MCHC 35.8 RDW 15.4 H Plt Count 131 MPV 9.7 pO2 VBG pH VBG pCO2 VBG HCO3 VBG Total CO2 VBG O2 Sat (Calc) VBG Base Excess VBG Potassium Sodium 136 Chloride 103 Glucose Lactate FiO2 Potassium 4.3 Carbon Dioxide 25 Anion Gap 12 BUN 45 H Creatinine 1.8 H Est GFR ( Amer) 45 Est GFR (Non-Af Amer) 37 POC Glucose (mg/dL) Random Glucose 101 Hemoglobin A1c Calcium 8.3 L Phosphorus 3.5 Magnesium 1.9 Iron TIBC % Saturation Ferritin Lipase 417 H Vitamin B12 Folate Free T4 TSH 3rd Generation Venous Blood Potassium 12/19/17 12/19/17 12/19/17 06:08 06:51 08:40 WBC 5.9 RBC 2.75 L Hgb 8.5 L Hct 23.8 L MCV 86.5 MCH 30.9 MCHC 35.7 RDW 15.9 H Plt Count 124 MPV 10.4 pO2 VBG pH VBG pCO2 VBG HCO3 VBG Total CO2 VBG O2 Sat (Calc) VBG Base Excess VBG Potassium Sodium Chloride Glucose Lactate FiO2 Potassium Carbon Dioxide Anion Gap BUN Creatinine Est GFR ( Amer) Est GFR (Non-Af Amer) POC Glucose (mg/dL) 87 70 Random Glucose Hemoglobin A1c Calcium Phosphorus Magnesium Iron TIBC % Saturation Ferritin Lipase Vitamin B12 Folate Free T4 TSH 3rd Generation Venous Blood Potassium 12/19/17 12/19/17 12/19/17 08:40 08:56 08:58 WBC RBC Hgb Hct MCV MCH MCHC RDW Plt Count MPV pO2 VBG pH VBG pCO2 VBG HCO3 VBG Total CO2 VBG O2 Sat (Calc) VBG Base Excess VBG Potassium Sodium 135 Chloride 103 Glucose Lactate FiO2 Potassium 4.2 Carbon Dioxide 26 Anion Gap 10 BUN 43 H Creatinine 1.8 H Est GFR ( Amer) 45 Est GFR (Non-Af Amer) 37 POC Glucose (mg/dL) 35 L* 40 L Random Glucose 38 L* D Hemoglobin A1c Calcium 8.3 L Phosphorus Magnesium Iron TIBC % Saturation Ferritin Lipase Vitamin B12 Folate Free T4 TSH 3rd Generation Venous Blood Potassium 12/19/17 12/19/17 12/19/17 10:01 10:07 10:11 WBC RBC Hgb Hct MCV MCH MCHC RDW Plt Count MPV pO2 VBG pH VBG pCO2 VBG HCO3 VBG Total CO2 VBG O2 Sat (Calc) VBG Base Excess VBG Potassium Sodium Chloride Glucose Lactate FiO2 Potassium Carbon Dioxide Anion Gap BUN Creatinine Est GFR ( Amer) Est GFR (Non-Af Amer) POC Glucose (mg/dL) 117 H Random Glucose Hemoglobin A1c 7.2 H Calcium Phosphorus Magnesium Iron TIBC % Saturation Ferritin 992.0 Lipase Vitamin B12 463 Folate 3.3 Free T4 TSH 3rd Generation Venous Blood Potassium 12/19/17 12/19/17 12/19/17 11:59 12:50 12:50 WBC 6.0 RBC 2.63 L Hgb 8.2 L Hct 22.8 L MCV 86.7 MCH 31.2 MCHC 36.0 RDW 16.2 H Plt Count 121 MPV 10.6 pO2 VBG pH VBG pCO2 VBG HCO3 VBG Total CO2 VBG O2 Sat (Calc) VBG Base Excess VBG Potassium Sodium 132 Chloride 100 Glucose Lactate FiO2 Potassium 4.0 Carbon Dioxide 26 Anion Gap 10 BUN 40 H Creatinine 1.6 H Est GFR ( Amer) 51 Est GFR (Non-Af Amer) 42 POC Glucose (mg/dL) 39 L Random Glucose 173 H Hemoglobin A1c Calcium 8.1 L Phosphorus Magnesium Iron TIBC % Saturation Ferritin Lipase Vitamin B12 Folate Free T4 TSH 3rd Generation Venous Blood Potassium 12/19/17 12/19/17 12/19/17 12:50 12:50 13:28 WBC RBC Hgb Hct MCV MCH MCHC RDW Plt Count MPV pO2 VBG pH VBG pCO2 VBG HCO3 VBG Total CO2 VBG O2 Sat (Calc) VBG Base Excess VBG Potassium Sodium Chloride Glucose Lactate FiO2 Potassium Carbon Dioxide Anion Gap BUN Creatinine Est GFR ( Amer) Est GFR (Non-Af Amer) POC Glucose (mg/dL) 125 H Random Glucose Hemoglobin A1c Calcium Phosphorus Magnesium Iron 206 H TIBC 244 L % Saturation 84 H Ferritin Lipase Vitamin B12 Folate Free T4 1.17 TSH 3rd Generation 0.44 L Venous Blood Potassium 12/19/17 12/19/17 12/19/17 16:03 20:10 20:10 WBC 6.5 RBC 2.59 L Hgb 8.0 L Hct 22.6 L MCV 87.3 MCH 30.9 MCHC 35.4 RDW 16.3 H Plt Count 118 L MPV 10.5 pO2 VBG pH VBG pCO2 VBG HCO3 VBG Total CO2 VBG O2 Sat (Calc) VBG Base Excess VBG Potassium Sodium 130 L Chloride 100 Glucose Lactate FiO2 Potassium 5.1 H Carbon Dioxide 22 Anion Gap 13 BUN 39 H Creatinine 1.7 H Est GFR ( Amer) 48 Est GFR (Non-Af Amer) 40 POC Glucose (mg/dL) 160 H Random Glucose 298 H Hemoglobin A1c Calcium 7.8 L Phosphorus Magnesium Iron TIBC % Saturation Ferritin Lipase Vitamin B12 Folate Free T4 TSH 3rd Generation Venous Blood Potassium 12/19/17 20:24 WBC RBC Hgb Hct MCV MCH MCHC RDW Plt Count MPV pO2 VBG pH VBG pCO2 VBG HCO3 VBG Total CO2 VBG O2 Sat (Calc) VBG Base Excess VBG Potassium Sodium Chloride Glucose Lactate FiO2 Potassium Carbon Dioxide Anion Gap BUN Creatinine Est GFR ( Amer) Est GFR (Non-Af Amer) POC Glucose (mg/dL) 308 H Random Glucose Hemoglobin A1c Calcium Phosphorus Magnesium Iron TIBC % Saturation Ferritin Lipase Vitamin B12 Folate Free T4 TSH 3rd Generation Venous Blood Potassium Attending/Attestation - Attestation I have personally seen and examined this patient.: Yes I have fully participated in the care of the patient.: Yes I have reviewed all pertinent clinical information: Yes Notes (Text): This is an addendum to GI consult report dictated by the Electric Fan Assembler.The patient was seen and examined earlier. Medical records, lab studies, imagings were reviewed. Last 24 hours events reviewed. Agreed with the above treatment plan as outlined in Electric Fan Assembler 's notes the with the addition of the following 12/19/17 23:41
[2017-12-19 20:17] LABS: MEAN CELL VOLUME 87.3 fl (80.0-105.0); MEAN CORPUSCULAR HEMOGLOBIN 30.9 pg (25.0-35.0); MEAN CORPUSCULAR HGB CONC 35.4 g/dl (31.0-37.0); MEAN PLATELET VOLUME 10.5 fl (7.0-11.0); RBC 2.59 10^6/uL (3.5-6.1); RED CELL DISTRIBUTION WIDTH 16.3 % (11.5-14.5); WHITE BLOOD COUNT 6.5 10^3/ul (4.5-11.0)
[2017-12-19 20:38] LABS: CALCIUM 7.8 mg/dL (8.4-10.5)
--- NOTE | 2017-12-19 22:39 | PN ---
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 He was discharged for wound care and antibiotics to [facility] where he was over the past week or two. Apparently, the patient became weak and lightheaded. He was sent to [facility] emergency room and found to be profoundly anemic. He was admitted yesterday, and since that time, he was transfused 3 units of packed red blood cells. OBJECTIVE: This morning, his hemoglobin is up from 5.3 up to 8.8, hematocrit is 24.6. White blood cell count is 6.2, platelet is 131. He is A+ type blood. Sodium is 136, potassium 4.3, blood urea nitrogen 45, creatinine 0.8. His blood pressure is 149/65, heart rate is 104 and he is afebrile. Earlier today he underwent an esophagogastroduodenoscopy with Dr. 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 ASSESSMENT AND PLAN: The plan is to allow the patient to eat tomorrow, and on Sunday, the patient is scheduled for a colonoscopy. When seen today, the patient is in the Intensive Care Unit. He is sleeping, but easily arousable. When aroused, he is awake, alert and oriented. His lungs are clear anteriorly. Heart is regular. Abdomen is soft and nontender. So the plan is to follow the patient's hemoglobin and hematocrit levels as mentioned above, and follow up with a colonoscopy in 2 days. We are continuing to evaluate the patient in the Intensive Care Unit. Nii Ramon MD
[2017-12-20] MEDS: Insulin Reg-MEDIUM-Coverage SC SCH ×7 (00:37→23:30)
[2017-12-20] MEDS ORDERED: Pantoprazole 40 mg EC Tab PO SCH (06:00)
[2017-12-20 06:25] LABS: BASO # 0.01 K/mm3 (0.0-2.0); BASO % 0.2 % (0.0-3.0); EOS # 0.2 (0.0-0.7); EOS % 4.2 % (1.5-5.0); GRAN # 3.48 (1.4-6.5); GRAN % 60.4 % (50.0-68.0); HEMOGLOBIN 8.3 g/dL (14.0-18.0); LYMPH # 1.4 (1.2-3.4); LYMPH % 24.9 % (22.0-35.0); MEAN CELL VOLUME 88.4 fl (80.0-105.0); MEAN PLATELET VOLUME 9.8 fl (7.0-11.0); MONO # 0.6 (0.1-0.6); MONO % 10.3 % (1.0-6.0); PLATELET COUNT 105 10^3/uL (120.0-450.0); RBC 2.68 10^6/uL (3.5-6.1); RED CELL DISTRIBUTION WIDTH 16.5 % (11.5-14.5); WHITE BLOOD COUNT 5.8 10^3/ul (4.5-11.0)
[2017-12-20 07:31] LABS: ALBUMIN 2.6 g/dL (3.0-4.8); CALCIUM 8.1 mg/dL (8.4-10.5)
[2017-12-20] MEDS: Dextrose 5%/0.45% NS 1,000 ML IV SCH ×2 (08:24→18:19)
[2017-12-20] MEDS: Verapamil 120 mg ER Tab PO SCH (09:54)
[2017-12-20] MEDS: Levothyroxine 100 MCG TAB PO SCH (09:54)
[2017-12-20] MEDS ORDERED: Linezolid 600 mg in D5W 300 ml 600 MG/300 ML BAG IVPB SCH (10:00)
--- NOTE | 2017-12-20 10:36 | HP ---
CHIEF COMPLAINT: Severe anemia noted on lab work. HISTORY OF PRESENT ILLNESS: This is a 72-year-old man who recently had a slip and fall, the large decubitus ulcer was noted for which he was hospitalized and is being treated with long-term antibiotics for suspected osteo at the base of the sacral decubitus. The patient was at a subacute rehab facility under the care of Dr. Adams. He was noted to be pale. Labs were drawn and his hemoglobin was reported to be in the range of 5; therefore, he was sent to the emergency room and now, being evaluated for admission. 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 Hospitalization at [facility] include recent hospitalization in 11/2017 for the decubitus ulcer as noted above as well as hospitalization in 10/2017 for pneumonia and in 2012 for COPD. MEDICATIONS ON ADMISSION: Include levothyroxine, glyburide, lisinopril, and metoprolol. ALLERGIES: HE HAS NO KNOWN ALLERGIES. SOCIAL HISTORY: He does not smoke or drink alcohol, although, there was a history of smoking up until just recently. He is a and lives with his daughter. REVIEW OF SYSTEMS: Significant only for the weakness related to arthritis in the hips and knees and soreness from the decubitus. PHYSICAL EXAMINATION: GENERAL: The patient was seen in the emergency room this evening. No family members were present at this time. HEAD AND NECK: Unremarkable except for the pallor. Conjunctivae are pale. Mucous membranes are moist. Neck is supple without masses and there is slight puffiness to the skin of the face and periorbital area related to anemia. LUNGS: Showed decreased breath sounds with COPD with increased AP diameter and prolonged expiratory phase. HEART: Regular, but not tachycardic. ABDOMEN: Obese, slightly protuberant, but soft and nontender. EXTREMITIES: Show trace edema, again related to the severity of the anemia and a large decubitus ulcer is present and healing. LABORATORY DATA: Review of the labs show normal white count with hemoglobin of 5.3. INR is slightly elevated at 1.6 and chemistries showed elevated initial potassium and BUN and creatinine of 51 and 2. IMPRESSION: 1. Acute gastrointestinal bleed on top of chronic gastrointestinal bleed with severe anemia. 2. Severe anemia, hemoglobin of 5. 3. Chronic obstructive pulmonary disease. 4. Decubitus ulcer. PLAN: Consent for blood transfusion was obtained, the patient and I signed along with his nurse. He is being evaluated by the hospital vice president quality assurance for admission to intensive care and transfusion. I explained to the patient, we will put a call out to GI as he may need endoscopy and workup. We will check old records as to whether any EGD or colonoscopy was ever done in the past. We will monitor his sugar. Continue antibiotics and Levoxyl at this point. Dannie Ramon MD
[2017-12-20] MEDS: Collagenase 250 Units/gm Ointment(30 gm) TOP SCH (10:47)
[2017-12-20] MEDS: Nystatin 100,000 Units/gm Cream(15 gm) TOP SCH ×2 (10:47→18:21)
[2017-12-20] MEDS: Silver Sulfadiazine 1% Cream (25 gm) TP SCH (10:47)
[2017-12-20] MEDS ORDERED: Bisacodyl 5mg EC Tab PO ONE (12:42)
[2017-12-20] MEDS: Meropenem 500 MG in Sodium Chloride 0.9% 50 ML IVPB SCH ×2 (13:16→22:08)
[2017-12-20] MEDS ORDERED: Peg-Electrolyte Oral Soln 4L (Golytely) PO ONE (14:00)
[2017-12-21] MEDS ORDERED: Dextrose 50% SYRINGE Inj (50 ml) IVP ONE ×5 (03:17→11:18)
[2017-12-21] MEDS ORDERED: Dextrose 50% SYRINGE Inj (50 ml) ONE (03:21)
--- NOTE | 2017-12-21 03:28 | PN ---
DATE: 12/20/2017 ONCOLOGY NOTE SUBJECTIVE: Patient was seen this evening in room 578, bed 1 as he was in Intensive Care this morning and just moved up to the 5th floor. He is doing well, having received his transfusion. He is surprised how wonderful and strong he felt when his anemia was corrected. He is doing well, drinking his prep, scheduled for a colonoscopy tomorrow. I checked the sacral decubitus. The area is improved, but there is some superficial skin breaking on the surrounding areas related to friction and dressing, etc around the ulcer. He continues his IV antibiotics, colonoscopy tomorrow. We will add a probiotic, continue with the bowel prep and current course of antibiotics and to hope for reduce the risk of complication/C. diff. Dannie Ramon MD [facility]
--- NOTE | 2017-12-21 04:57 | CON ---
DATE: 12/20/2017 LOCATION: The patient is seen earlier this morning in the ICU 129, bed 7. CHIEF COMPLAINT: Weakness and GI bleed times several days. HISTORY OF PRESENT ILLNESS: This is a 72-year-old male with the history of chronic obstructive lung disease, hypertension, coronary artery disease, hypothyroidism, diabetes, decubitus ulcer, traumatic brain injury after a fall from the roof, Proteus urinary tract infection with BPH and cardiac catheterization in the past, who was admitted and the recent hospitalization with decubitus ulcer, osteomyelitis with MRSA and E. 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 REVIEW OF SYSTEMS: Reveals there has been low-grade fevers and no chills. No chest pain. There is GI bleed. There is no headaches or blurred vision. There is decubitus ulcer. No dysuria, frequency. PAST MEDICAL HISTORY: Significant for chronic obstructive lung disease, hypertension, coronary artery disease, hypothyroidism, diabetes mellitus, Proteus urinary tract infection, BPH, diabetes mellitus, decubitus ulcer and traumatic brain injury after a fall from the roof. PAST SURGICAL HISTORY: Significant for cardiac catheterization. ALLERGIES: PATIENT HAS NO KNOWN ALLERGIES. MEDICATIONS: Noted, at home include prednisone. PHYSICAL EXAMINATION: GENERAL: The patient is in bed. VITAL SIGNS: Temperature of 97, heart rate of 104, respiratory rate of 22, blood pressure was down to 77/33. HEENT: Unremarkable. NECK: Supple. LUNGS: Have decreased breath sounds. HEART: Normal S1, S2. ABDOMEN: Soft, nontender. No rebound or guarding. Examination of the sacrum is a large sacral ulcer, which appears to be clean, however, it is large, it is open, mild erythema, no discharge. LABORATORY DATA: Reveals the patient has a white count of 5.8, hemoglobin of 8, platelets of 105. Coagulation is noted and chemistries reveals the BUN of 39, creatinine of 1.7. Urinalysis is noted. Microbiology reveals the MRSA is not detected in the nose. Microbiology from previous admissions reveals patient did have MRSA and E. coli resistance. Patient also had a chest x-ray showed right lower lobe pneumonia with procalcitonin of 0.3. CAT scan of the abdomen and pelvis is noted. ASSESSMENT AND PLAN: This is a 72-year-old male with chronic obstructive lung disease, psoriasis, congestive heart failure, hypertension, diabetes, coronary artery disease, hypothyroidism, traumatic brain injury after falling from the roof, renal disease, healthcare associated pneumonia, Proteus urinary tract infection, benign prostatic hypertrophy, now admitted with gastrointestinal bleed, severe sepsis with gastrointestinal bleeding secondary to large gastric arteriovenous malformation,decubitus ulcer, osteomyelitis with methicillin-resistant Staphylococcus aureus and Escherichia coli, day #23 of 28 days of Zyvox and meropenem. We will discontinue the Zyvox due to the drop in the platelets and will give doxycycline. We will order a sed rate and C-reactive protein. We will make further recommendations. Teddy Hazel MD
[2017-12-21] MEDS: Insulin Reg-MEDIUM-Coverage SC SCH ×6 (05:10→23:42)
[2017-12-21] MEDS: Meropenem 500 MG in Sodium Chloride 0.9% 50 ML IVPB SCH ×3 (05:30→21:52)
[2017-12-21] MEDS ORDERED: Bisacodyl 5mg EC Tab PO ONE (06:48)
[2017-12-21] MEDS ORDERED: Magnesium Citrate Oral SOL (300 ml) PO ONE (06:48)
[2017-12-21 06:51] LABS: BASO # 0.01 K/mm3 (0.0-2.0); BASO % 0.2 % (0.0-3.0); EOS # 0.3 (0.0-0.7); EOS % 4.9 % (1.5-5.0); GRAN # 3.48 (1.4-6.5); GRAN % 60.8 % (50.0-68.0); HEMOGLOBIN 8.4 g/dL (14.0-18.0); LYMPH # 1.2 (1.2-3.4); LYMPH % 20.8 % (22.0-35.0); MEAN CELL VOLUME 88.9 fl (80.0-105.0); MEAN CORPUSCULAR HGB CONC 34.9 g/dl (31.0-37.0); MONO # 0.8 (0.1-0.6); MONO % 13.3 % (1.0-6.0); RBC 2.71 10^6/uL (3.5-6.1); RED CELL DISTRIBUTION WIDTH 15.8 % (11.5-14.5); WHITE BLOOD COUNT 5.7 10^3/ul (4.5-11.0)
[2017-12-21 07:21] LABS: CALCIUM 8.1 mg/dL (8.4-10.5)
[2017-12-21] MEDS: Dextrose 5%/0.45% NS 1,000 ML IV SCH ×3 (09:24→20:59)
[2017-12-21] MEDS: Silver Sulfadiazine 1% Cream (25 gm) TP SCH (10:20)
[2017-12-21] MEDS: Levothyroxine 100 MCG TAB PO SCH (11:50)
[2017-12-21] MEDS: Lactobacillus Acidophilus 500 MU Cap PO SCH ×2 (11:50→18:05)
[2017-12-21] MEDS: Verapamil 120 mg ER Tab PO SCH (11:50)
[2017-12-21] MEDS ORDERED: Propofol 10 mg/ml Inj (20 ML) ONE (15:34)
[2017-12-21] MEDS ORDERED: Sodium Chloride 0.9% 1,000 ML IV SCH (16:15)
--- NOTE | 2017-12-21 22:10 | CP.PCM.PN ---
Subjective - Date & Time of Evaluation Date of Evaluation: 12/21/17 Time of Evaluation: 08:55 - Subjective Subjective: Comfortable, no fevers. Objective - Vital Signs/Intake and Output Vital Signs (last 24 hours): Temp Pulse Resp BP Pulse Ox 97.5 F L 77 20 147/73 100 12/21/17 06:00 12/21/17 06:00 12/21/17 06:00 12/21/17 06:00 12/21/17 06:00 Intake and Output: 12/21/17 12/21/17 06:59 18:59 Intake Total 540 Output Total 2350 Balance -1810 - Medications Medications: Current Medications Doxycycline Hyclate (Doryx) 100 mg PO Q12 GLORIA PRN Reason: Protocol Stop: 12/29/17 22:01 Last Admin: 12/20/17 22:07 Dose: 100 mg Glipizide (Glucotrol) 2.5 mg PO ACB [facility]ORIA Dextrose/Sodium Chloride (Dextrose 5%/0.45% Ns 1000 Ml) 1,000 mls @ 100 mls/hr IV .Q10H [facility] Last Admin: 12/21/17 09:24 Dose: 100 mls/hr Meropenem 500 mg/ Sodium (Chloride) 50 mls @ 100 mls/hr IVPB Q8 GLORIA PRN Reason: Protocol Stop: 12/29/17 14:01 Last Admin: 12/21/17 05:30 Dose: 100 mls/hr Insulin Human Regular (Humulin R Med) 0 units SC Q4H GLORIA PRN Reason: Protocol Last Admin: 12/21/17 08:02 Dose: Not Given Lactobacillus Acidophilus (Bacid Acidophilus) 1 cap PO BID [facility] Levothyroxine Sodium (Synthroid) 100 mcg PO DAILY [facility] Last Admin: 12/20/17 09:54 Dose: 100 mcg Lisinopril (Zestril) 10 mg PO DAILY [facility] Last Admin: 12/20/17 09:54 Dose: 10 mg Metoprolol Tartrate (Lopressor) 50 mg PO BID [facility] Last Admin: 12/20/17 18:20 Dose: 50 mg Nystatin (Mycostatin Cream) 0 ea TOP TID [facility] Last Admin: 12/20/17 18:21 Dose: 1 applic Pantoprazole Sodium (Protonix Inj) 40 mg IVP Q12 [facility] Last Admin: 12/20/17 22:08 Dose: 40 mg Prednisone (Prednisone Tab) 10 mg PO DAILY [facility] Last Admin: 12/20/17 09:55 Dose: 10 mg Sevelamer HCl (Renagel) 800 mg PO TID [facility] Last Admin: 12/20/17 18:22 Dose: 800 mg Silver Sulfadiazine (Silvadene 1% 25 Gm) 0 gm TP DAILY [facility] Last Admin: 12/20/17 10:47 Dose: 25 gm Verapamil HCl (Calan Sr Tab) 120 mg PO DAILY [facility] Last Admin: 12/20/17 09:54 Dose: 120 mg - Labs Labs: 12/21/17 06:00 12/21/17 06:00 PT 19.2 SECONDS (9.4-12.5) H 12/18/17 18:00 INR 1.67 (0.93-1.08) H 12/18/17 18:00 APTT 27.8 Seconds (25.1-36.5) 12/18/17 18:00 - Constitutional Appears: Chronically Ill - Head Exam Head Exam: NORMAL INSPECTION - Neck Exam Neck Exam: absent: Meningismus - Respiratory Exam Respiratory Exam: Decreased Breath Sounds - Cardiovascular Exam Cardiovascular Exam: +S1, +S2 - GI/Abdominal Exam GI & Abdominal Exam: Soft. absent: Tenderness Assessment and Plan - Assessment and Plan (Free Text) Plan: Assessment infected sacral decubitus ulcer with probable osteomyelitis, S/P debridement CAD with chronic CHF DM HTN COPD hypothyroidism psoriasis S/P treatment for HCAP Plan Continue doxycycline and Merrem day 24 to complete 28 days
--- NOTE | 2017-12-22 04:14 | PN ---
DATE: 12/21/2017 The patient was seen this Sunday morning in room 578, bed 1. He is having a difficult time prepping for colonoscopy, was not able to drink much of the prep solution. He is headed for endoscopy later today. Exam is otherwise unremarkable. His anemia has been corrected with transfusion. Angiodysplasia was seen in the colon. Later in the day, I spoke with Dr. Lagos, who is suspicious of other angiodysplasia in the colon as well as the one seen in the stomach on endoscopy. As the patient is unable to perform colonoscopy because of the retained stool, therefore, the next best option might be to go to [facility] rehab facility on subq Lovenox and then repeat the colon prep and colonoscopy in a week or so, then the Lovenox could be quickly discontinued. At that point, Dr. Lagos raised the question as to whether Eliquis will be the best anticoagulant or should we return to the conventional Coumadin regimen, which could be more easily be reversed . We will discuss these issues again tomorrow and see how the patient does overnight. Dannie Ramon MD [facility]
[2017-12-22] MEDS: Meropenem 500 MG in Sodium Chloride 0.9% 50 ML IVPB SCH ×2 (06:08→13:49)
[2017-12-22 08:18] VITALS: PULSE 80; RESP 18; TEMP 97; O2SAT 98
[2017-12-22] MEDS: Insulin Reg-MEDIUM-Coverage SC SCH (08:43)
[2017-12-22] MEDS: Nystatin 100,000 Units/gm Cream(15 gm) TOP SCH ×2 (09:00→13:51)
[2017-12-22] MEDS: Levothyroxine 100 MCG TAB PO SCH (10:24)
[2017-12-22] MEDS: Lactobacillus Acidophilus 500 MU Cap PO SCH (10:24)
[2017-12-22] MEDS: Verapamil 120 mg ER Tab PO SCH (10:27)
[2017-12-22] MEDS: Silver Sulfadiazine 1% Cream (25 gm) TP SCH (10:29)
[2017-12-22 10:36] VITALS: BP 132/60
--- NOTE | 2017-12-22 19:57 | PN ---
DATE: 12/22/2017 LOCATION: The patient is in room 578, bed 1. PHYSICAL EXAMINATION: VITAL SIGNS: Temperature is 98, blood pressure is 130/70, respiratory rate of 16. HEENT: unremarkable. NECK: Supple. LUNGS: Have decreased breath sounds. HEART: Normal S1 and S2. ABDOMEN: Soft. LABORATORY DATA: Laboratory examination reveals the patient's sed rate is 22, white count is 5.7, hemoglobin of 8 and creatinine is 1.9. Urinalysis is noted. ASSESSMENT AND PLAN: This is a 72-year-old male with infected sacral decubitus ulcer, probable osteomyelitis, status post debridement, coronary artery disease, congestive heart failure, hypertension, diabetes, chronic obstructive lung disease on doxycycline, meropenem day #25 of 28 days. Review of orders are noted. We will follow closely with you. Teddy Hazel MD
--- NOTE | 2017-12-23 18:55 | DS ---
HISTORY OF PRESENT ILLNESS: This is a 72-year-old man who was recently hospitalized at [facility] with a large decubitus that was deep, required a long course of antibiotics for osteo. He is at [facility], was noted to be pale. Labs were drawn. His hemoglobin was 5 and so he was transferred to [facility]. He was seen in the ER on the day of admission. He was evaluated by the manuscripts curator and admitted to the ICU because of such a severe anemia, transfused with at least 3 units of packed red cells, stabilized and sent to the med-surg floor. Endoscopy was done showing AVMs in the stomach. Colonoscopy was attempted, but the patient could not do the prep, there was too much stool and so it needed to be delayed. I had a nice conversation with the panel saw operator, Dr. Lagos, who told me in his experience that there is an AVM in the stomach in the colon, so colonoscopy is imperative to be completed, although the patient is scheduled for discharge back to [facility] for continued IV antibiotics after the colonoscopy. This became a little bit of dilemma. The best option for the patient was to not resume Eliquis because of his atrial fibrillation, but rather bridge him with Lovenox as he returns to [facility]. The Lovenox will start on Sunday allowing adequate time after the endoscopy and colonoscopy prep. He will then be continued on Lovenox and Dr. Lagos will make arrangements for colonoscopy to be done as an outpatient next week and then he would return to [facility] and the decision would be made then as to returning to Lovenox versus Eliquis versus Coumadin. The patient was discharged to [facility] this Sunday afternoon. FINAL DISCHARGE DIAGNOSES: 1. Severe anemia, acute blood loss from arteriovenous malformations. 2. Chronic renal insufficiency. 3. History of atrial fibrillation. 4. Coronary artery disease. 5. Sacral decubitus. 6. Hypertension. 7. Diabetes. ADDENDUM: His blood sugar has been running low the last few days with oral agents and hospital diabetic diet. Therefore, the oral agents, glyburide and then later glipizide, have been reduced and discontinued. For now, we will continue to follow sugars at the rehab. Dannie Ramon MD [facility] # [id number]
[2017-12-24] MEDS ORDERED: Enoxaparin 60 mg Syringe SC SCH (10:00)
== END 2017-12-22 18:42 | DRG 377 ==
LOC: ED 17:25 → ERH 19:03 → CCU 20:25 → 5RSO 12-20 14:28
PROVIDERS: ADMIT Internal Medicine; ATTEND Internal Medicine
PROC: 30233N1 Transfusion of Nonautologous Red Blood Cells into Peripheral Vein, Percutaneous Approach (ICD-10-PCS; 2017-12-18)
PROC: 0DJ08ZZ Inspection of Upper Intestinal Tract, Via Natural or Artificial Opening Endoscopic (ICD-10-PCS; 2017-12-19)
PROC: 05HY33Z Insertion of Infusion Device into Upper Vein, Percutaneous Approach (ICD-10-PCS; 2017-12-20)
PROC: 0DB58ZX Excision of Esophagus, Via Natural or Artificial Opening Endoscopic, Diagnostic (ICD-10-PCS; 2017-12-21)
PROC: 0D568ZZ Destruction of Stomach, Via Natural or Artificial Opening Endoscopic (ICD-10-PCS; 2017-12-21)
PROC: 0DB98ZX Excision of Duodenum, Via Natural or Artificial Opening Endoscopic, Diagnostic (ICD-10-PCS; principal; 2017-12-21 13:15)
PROC: 0DB68ZX Excision of Stomach, Via Natural or Artificial Opening Endoscopic, Diagnostic (ICD-10-PCS; 2017-12-21 13:15)
DX: K31.811 Angiodysplasia of stomach and duodenum with bleeding (principal); L89.154 Pressure ulcer of sacral region, stage 4; D62 Acute posthemorrhagic anemia; M86.9 Osteomyelitis, unspecified; N17.9 Acute kidney failure, unspecified; J44.0 Chronic obstructive pulmonary disease with (acute) lower respiratory infection; I13.0 Hypertensive heart and chronic kidney disease with heart failure and stage 1 through stage 4 chronic kidney disease, or unspecified chronic kidney disease; D50.0 Iron deficiency anemia secondary to blood loss (chronic); K55.20 Angiodysplasia of colon without hemorrhage; K22.70 Barrett's esophagus without dysplasia; K44.9 Diaphragmatic hernia without obstruction or gangrene; Z86.14 Personal history of Methicillin resistant Staphylococcus aureus infection; E03.9 Hypothyroidism, unspecified; E11.22 Type 2 diabetes mellitus with diabetic chronic kidney disease; E11.649 Type 2 diabetes mellitus with hypoglycemia without coma; E11.69 Type 2 diabetes mellitus with other specified complication; E87.5 Hyperkalemia; N18.9 Chronic kidney disease, unspecified; I25.10 Atherosclerotic heart disease of native coronary artery without angina pectoris; I48.0 Paroxysmal atrial fibrillation; I50.9 Heart failure, unspecified; K57.90 Diverticulosis of intestine, part unspecified, without perforation or abscess without bleeding; K74.60 Unspecified cirrhosis of liver; N28.1 Cyst of kidney, acquired; L40.9 Psoriasis, unspecified; Z87.440 Personal history of urinary (tract) infections; N40.0 Benign prostatic hyperplasia without lower urinary tract symptoms; Z87.820 Personal history of traumatic brain injury; Z86.19 Personal history of other infectious and parasitic diseases; Z79.2 Long term (current) use of antibiotics; Z87.891 Personal history of nicotine dependence; R40.2412 Glasgow coma scale score 13-15, at arrival to emergency department; K29.80 Duodenitis without bleeding; K29.50 Unspecified chronic gastritis without bleeding

== ENCOUNTER 2018-08-02 10:19 | Inpatient (IN) | payer MEDICARE, OTHER ==
[2018-08-02 10:19] VITALS: PULSE 134
[2018-08-02 11:00] LABS: URINE BILIRUBIN NEGATIVE (NEGATIVE); URINE BLOOD TRACE-LYSED (NEGATIVE); URINE GLUCOSE (UA) NEGATIVE (NEGATIVE); URINE LEUKOCYTE ESTERASE SMALL Leu/uL (NEGATIVE); URINE PROTEIN TRACE mg/dL (<30 mg/dL); URINE UROBILINOGEN 0.2 E.U./dL (<1 E.U./dL)
[2018-08-02 11:01] LABS: URINE APPEARANCE SL CLOUDY (CLEAR); URINE COLOR YELLOW (YELLOW)
[2018-08-02 11:05] LABS: URINE BACTERIA FEW (NEG); URINE EPITHELIAL CELLS 0 - 2 /hpf (0-5); URINE RBC 0 - 2 /hpf (0-2); URINE WBC TNTC /hpf (0-6)
[2018-08-02 11:08] LABS: BASO # 0.05 K/mm3 (0.0-2.0); BASO % 0.5 % (0.0-3.0); EOS # 0.2 (0.0-0.7); EOS % 2.2 % (1.5-5.0); GRAN # 7.68 (1.4-6.5); GRAN % 79.9 % (50.0-68.0); HEMOGLOBIN 14.7 g/dL (14.0-18.0); LYMPH % 10.6 % (22.0-35.0); MEAN CELL VOLUME 99.8 fl (80.0-105.0); MEAN CORPUSCULAR HEMOGLOBIN 33.3 pg (25.0-35.0); MEAN CORPUSCULAR HGB CONC 33.4 g/dl (31.0-37.0); MEAN PLATELET VOLUME 11.2 fl (7.0-11.0); MONO # 0.7 (0.1-0.6); MONO % 6.8 % (1.0-6.0); RBC 4.41 10^6/uL (3.5-6.1); WHITE BLOOD COUNT 9.6 10^3/uL (4.5-11.0)
[2018-08-02 11:10] LABS: VENOUS BLOOD GAS PO2 25 mm/Hg (30-55); VENOUS BLOOD PH 7.26 (7.32-7.43)
[2018-08-02 11:18] LABS: ALB/GLOB RATIO 1.1 (1.1-1.8); CALCIUM 9.1 mg/dL (8.4-10.5)
[2018-08-02 11:29] LABS: TROPONIN I 0.01 ng/mL
--- NOTE | 2018-08-02 12:14 | RAD ---
Date of service: 08/02/2018 HISTORY: r/o infiltrate COMPARISON: 12/18/2017 FINDINGS: LUNGS: There is a patchy infiltrate in the periphery of the right lower lobe. PLEURA: No significant pleural effusion identified, no pneumothorax apparent. CARDIOVASCULAR: No aortic atherosclerotic calcification present. Normal cardiac size. No pulmonary vascular congestion. OSSEOUS STRUCTURES: No significant abnormalities. VISUALIZED UPPER ABDOMEN: Normal. OTHER FINDINGS: None. IMPRESSION: Patchy infiltrate in the periphery of the right lower lobe
[2018-08-02] MEDS ORDERED: Azithromycin 500MG/NS 250ml 500 MG/250 ML BAG IVPB STA (12:30)
--- NOTE | 2018-08-02 12:42 | ED PDOC ---
Arrival/HPI - General Chief Complaint: Altered Mental Status Time Seen by Provider: 08/02/18 10:19 Historian: Patient - History of Present Illness Narrative History of Present Illness (Text): 08/02/18 10:19 73 year old male, whose past medical history includes afib on elqius, recent admission for osteo on iv antibiotics, COPD and CHF, hyperglycemia, who was brought in to the emergency department by ambulance from home for AMS and hypoglycemia (39 mg/dl in the field, 124mg/dl after 1 amp D50%), after daughter visited him and got worried. Patient's daughter states patient has been having diarrhea. Patient states he did not wake up and take his medication this morning, and also did not take it last night. Patient notes some coughing. Patient states he is feeling completely fine and denies any pain, vomiting, diarrhea, constipation, dysuria, blood in urine, hematochezia, or any other complaint. PMD: Dannie Ramon Time/Duration: Prior to Arrival Symptom Onset: Sudden Symptom Course: Unchanged Activities at Onset: Light Past Medical History - Provider Review Nursing Documentation Reviewed: Yes - Infectious Disease Hx of Infectious Diseases: None - Tetanus Immunization Tetanus Immunization: Unknown - Cardiac Hx Atrial Fibrillation: Yes Hx Congestive Heart Failure: Yes Hx Hypertension: Yes Hx Pacemaker: No - Pulmonary Hx Chronic Obstructive Pulmonary Disease (COPD): Yes - Neurological Hx Neurological Disorder: No - HEENT Hx HEENT Disorder: No - Renal Hx Renal Disorder: Yes Hx Renal Failure: Yes - Endocrine/Metabolic Hx Diabetes Mellitus Type 2: Yes Hx Hypothyroidism: Yes - Hematological/Oncological Hx Cancer: No - Integumentary Hx Psoriasis: Yes - Musculoskeletal/Rheumatological Hx Arthritis: Yes - Gastrointestinal Hx Gastrointestinal Disorders: No - Genitourinary/Gynecological Hx Genitourinary Disorders: Yes (URGENCY) - Psychiatric Hx Psychophysiologic Disorder: (unknown) Hx Depression: No Hx Emotional Abuse: No Hx Physical Abuse: No Hx Substance Use: No - Past Surgical History Past Surgical History: Unable to Obtain - Surgical History Hx Mastectomy: No - Anesthesia Hx Anesthesia: Yes Hx Anesthesia Reactions: No Hx Malignant Hyperthermia: No - Suicidal Assessment Feels Threatened In Home Enviroment: No Family/Social History - Physician Review Nursing Documentation Reviewed: Yes Family/Social History: No Known Family HX Smoking Status: Former Smoker Hx Alcohol Use: Yes (social drinking) Hx Substance Use: No Hx Substance Use Treatment: No Allergies/Home Meds Allergies/Adverse Reactions: Allergies No Known Allergies Allergy (Verified 12/18/17 17:36) PER [facility] NURSE Home Medications: Home Meds Medication Instructions Recorded Confirmed Levothyroxine [Synthroid] 100 mcg PO DAILY 04/02/13 08/02/18 Lisinopril [Zestril] 10 mg PO DAILY 10/11/17 08/02/18 Apixaban [Eliquis] 2.5 mg PO BID 08/02/18 08/02/18 Budesonide/Formoterol Fumarate 1 puff IH BID 08/02/18 08/02/18 [Symbicort] Gabapentin [Neurontin] 300 mg PO TID 08/02/18 08/02/18 tiZANidine [Zanaflex] 4 mg PO QID 08/02/18 08/02/18 Review of Systems - Physician Review All systems were reviewed & negative as marked: Yes - Review of Systems Gastrointestinal: Normal. absent: Abdominal Pain, Stool Changes, Constipation, Diarrhea (pt denies diarrhea, while daughter notes he has been having diarrhea), Vomiting, Appetite Changes, Hematochezia Genitourinary Male: absent: Dysuria Psychiatric: Other (pt sent to emergency department for altered mental status). absent: Normal Physical Exam Vital Signs Reviewed: Yes Vital Signs Temp Pulse Resp BP Pulse Ox 08/02/18 11:51 69 18 122/74 98 08/02/18 10:32 98.2 F 76 18 126/85 95 08/02/18 10:22 98.9 F 88 18 138/84 99 Temperature: Afebrile Blood Pressure: Normal Pulse: Regular Respiratory Rate: Normal Appearance: Positive for: Well-Appearing, Non-Toxic Pain Distress: None Mental Status: Positive for: Alert and Oriented X 3 Finger Stick Blood Glucose: 150 - Systems Exam Head: Present: Atraumatic, Normocephalic Pupils: Present: PERRL Extroacular Muscles: Present: EOMI Conjunctiva: Present: Normal Mouth: Present: Moist Mucous Membranes Neck: Present: Normal Range of Motion Respiratory/Chest: Present: Clear to Auscultation, Good Air Exchange. No: Respiratory Distress, Accessory Muscle Use Cardiovascular: Present: Regular Rate and Rhythm, Normal S1, S2. No: Murmurs Abdomen: No: Tenderness, Distention, Peritoneal Signs Back: Present: Normal Inspection Upper Extremity: Present: Normal Inspection. No: Cyanosis, Edema Lower Extremity: Present: Normal Inspection. No: Edema Neurological: Present: GCS=15, CN II-XII Intact, Speech Normal Skin: Present: Warm, Dry, Normal Color. No: Rashes Psychiatric: Present: Alert, Oriented x 3, Normal Insight, Normal Concentration Medical Decision Making ED Course and Treatment: 08/02/18 10:19 Impression: 73 year old male who was brought in to the emergency department by ambulance from home for AMS and hypoglycemia (39 mg/dl in the field, 124mg/dl after 1 amp D50%), after daughter visited him and got worried when she saw his sugar low Plan: -- Labs -- EKG -- X-Ray of chest -- CBC (with differential) -- Glucose, POC -- Rocephin 1 gram IVPB -- IV fluids -- Zithromax 500mg in NS -- Blood culture -- Urine culture -- Urinalysis w/micro -- Reassess and disposition Prior Visits: Notes and results from previous visits were reviewed. Patient was last seen in the emergency department on 12/18/17 sent from [facility] for abnormal labs. Patient was hospitalized with diagnosis of GI bleed and anemia. Progress Notes: - Lab Interpretations Lab Results: 08/02/18 11:00 08/02/18 11:00 Lab Results 08/02/18 11:00: pO2 25 L, VBG pH 7.26 L, VBG pCO2 50.0, VBG HCO3 22.4, VBG Total CO2 23.9, VBG O2 Sat (Calc) 54.4, VBG Base Excess -5.0 L, VBG Potassium 3.8, Sodium 136.0, Chloride 104.0, Glucose 130 H, Lactate 1.3, FiO2 21.0, Venous Blood Potassium 3.8 08/02/18 11:00: Sodium 140, Chloride 108 H, Potassium 4.2, Carbon Dioxide 23, Anion Gap 14, BUN 28 H, Creatinine 2.5 H, Est GFR ( Amer) 31, Est GFR (Non-Af Amer) 25, Random Glucose 128 H, Calcium 9.1, Magnesium 1.7, Total Bilirubin 0.5, AST 33, ALT 41, Alkaline Phosphatase 105, Lactate Dehydrogenase 382, Total Creatine Kinase 58, Troponin I 0.01, Total Protein 7.7, Albumin 4.0, Globulin 3.7, Albumin/Globulin Ratio 1.1 08/02/18 11:00: WBC 9.6, RBC 4.41, Hgb 14.7 D, Hct 44.0, MCV 99.8 D, MCH 33.3, MCHC 33.4, RDW 15.0 H, Plt Count 214, MPV 11.2 H, Gran % 79.9 H, Lymph % (Auto) 10.6 L, [place] % (Auto) 6.8 H, Eos % (Auto) 2.2, Baso % (Auto) 0.5, Gran # 7.68 H, Lymph # (Auto) 1.0 L, [place] # (Auto) 0.7 H, Eos # (Auto) 0.2, Baso # (Auto) 0.05 08/02/18 10:40: Urine Color Yellow, Urine Appearance Sl cloudy, Urine pH 6.0, Ur Specific [place] 1.020, Urine Protein Trace H, Urine Glucose (UA) Negative, Urine Ketones Negative, Urine Blood Trace-lysed H, Urine Nitrate Negative, Urine Bilirubin Negative, Urine Urobilinogen 0.2, Ur Leukocyte Esterase Small H, Urine RBC 0 - 2, Urine WBC Tntc, Ur Epithelial Cells 0 - 2, Urine Bacteria Few 08/02/18 10:22: POC Glucose (mg/dL) 150 H - RAD Interpretation Narrative RAD Interpretations (Text): X-Ray of chest reviewed by radiologist, shows: Dictator : Nii North MD Report Date : 08/02/2018 12:10:32 FINDINGS: LUNGS: There is a patchy infiltrate in the periphery of the right lower lobe. PLEURA: No significant pleural effusion identified, no pneumothorax apparent. CARDIOVASCULAR: No aortic atherosclerotic calcification present. Normal cardiac size. No pulmonary vascular congestion. OSSEOUS STRUCTURES: No significant abnormalities. VISUALIZED UPPER ABDOMEN: Normal. OTHER FINDINGS: None. IMPRESSION: Patchy infiltrate in the periphery of the right lower lobe Radiology Orders: 08/02/18 10:33 CHEST PORTABLE [RAD] [employer] Machine Operator: Radiologist - EKG Interpretation EKG Interpretation (Text): EKG: Ordered, reviewed, and independently interpreted the EKG. Rate : 73 BPM Rhythm : NSR Interpretation : No ST-segment elevations or depressions, no T-wave inversions, normal intervals. Interpreted by ED Physician: Yes Type: 12 lead EKG - Medication Orders Current Medication Orders: Ceftriaxone Sodium (Rocephin 1 Gram Ivpb) 1 gm in 100 mls @ 100 mls/hr IVPB DAILY GLORIA; Protocol Sodium Chloride (Sodium Chloride 0.9%) 1,000 mls @ 125 mls/hr IV .Q8H GLORIA Azithromycin (Zithromax 500mg In Ns) 500 mg in 250 mls @ 167 mls/hr IVPB STAT STA; Protocol Stop: 08/02/18 13:59 - Scribe Statement The provider has reviewed the documentation as recorded by the Scribe Payal Alicea All medical record entries made by the Scribe were at my direction and personally dictated by me. I have reviewed the chart and agree that the record accurately reflects my personal performance of the history, physical exam, medical decision making, and the department course for this patient. I have also personally directed, reviewed, and agree with the discharge instructions and disposition. Disposition/Present on Arrival - Present on Arrival Any Indicators Present on Arrival: No History of DVT/PE: No History of Uncontrolled Diabetes: No Urinary Catheter: No History of Decub. Ulcer: No History Surgical Site Infection Following: None - Disposition Have Diagnosis and Disposition been Completed?: Yes Diagnosis: Hypoglycemia, UTI (urinary tract infection), CAP (community acquired pneumonia) Disposition: HOSPITALIZED Disposition Time: 11:30 Condition: STABLE
[2018-08-02] MEDS: Sodium Chloride 0.9% 1,000 ML IV SCH ×2 (12:56→15:23)
[2018-08-02] MEDS: cefTRIAXone 1 gm 1 GM/100 ML BAG IVPB SCH (12:57)
[2018-08-02 16:35] VITALS: BMI 28.3
[2018-08-02] MEDS ORDERED: Influenza Vaccine 60 mcg/0.5 mL SYR (4YR UP) IM ONE (16:36)
[2018-08-02] MEDS ORDERED: Pneumococcal 23-Valent Vaccine IM ONE (16:36)
[2018-08-02] MEDS: Albuterol-Ipratrop 3 mg / 0.5 (3 ml) UD IH SCH (19:58)
--- NOTE | 2018-08-02 20:36 | CARD ---
APPROVED REPORT Date of service: 08/02/2018 EKG Measurement Heart [id number] <Conclusion> Normal sinus rhythm Normal ECG
[2018-08-03] MEDS: Albuterol-Ipratrop 3 mg / 0.5 (3 ml) UD IH SCH ×4 (02:30→20:52)
[2018-08-03 08:25] LABS: CALCIUM 8.5 mg/dL (8.4-10.5)
[2018-08-03 08:40] LABS: GRAN % 64.7 % (50.0-68.0); HEMOGLOBIN 13.2 g/dL (14.0-18.0); LYMPH % 20.7 % (22.0-35.0); MEAN CELL VOLUME 101.3 fl (80.0-105.0); MEAN CORPUSCULAR HEMOGLOBIN 33.1 pg (25.0-35.0); MEAN CORPUSCULAR HGB CONC 32.7 g/dl (31.0-37.0); MEAN PLATELET VOLUME 11.8 fl (7.0-11.0); RBC 3.99 10^6/uL (3.5-6.1); RED CELL DISTRIBUTION WIDTH 15.3 % (11.5-14.5); WHITE BLOOD COUNT 7.2 10^3/uL (4.5-11.0)
[2018-08-03 08:41] LABS: BASO # 0.02 K/mm3 (0.0-2.0); BASO % 0.3 % (0.0-3.0); EOS # 0.4 (0.0-0.7); EOS % 5.8 % (1.5-5.0); GRAN # 4.67 (1.4-6.5); LYMPH # 1.5 (1.2-3.4); MONO # 0.6 (0.1-0.6); MONO % 8.5 % (1.0-6.0)
[2018-08-03] MEDS: cefTRIAXone 1 gm 1 GM/100 ML BAG IVPB SCH (10:28)
[2018-08-03] MEDS: Levothyroxine 100 MCG TAB PO SCH (10:29)
[2018-08-03] MEDS: Azithromycin 500MG/NS 250ml 500 MG/250 ML BAG IVPB SCH (10:31)
--- NOTE | 2018-08-03 14:26 | CON ---
DATE: 08/03/2018 The patient is seen earlier today in #574, bed 1. CHIEF COMPLAINT: Weakness times several days. HISTORY OF PRESENT ILLNESS: This is a 73-year-old male with COPD and atrial fibrillation, also with sacral osteomyelitis, on IV antibiotics, chronic fructose lung disease, congestive heart failure, and hypoglycemia. The patient was found to be as change in mental status at home and hypoglycemia, and Infectious Disease consultation requested. The patient at this point states there is some shortness of breath, some cough, and does have dysuria, but no chest pain. No abdominal pain, diarrhea or constipation. No bright red blood per rectum. No melena. REVIEW OF SYSTEMS: Fourteen-point review of systems is performed. 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 The patient is also with psoriasis, hypothyroidism, and arthritis. PAST SURGICAL HISTORY: Significant for cardiac catheterization. ALLERGIES: THE PATIENT HAS NO KNOWN ALLERGIES. MEDICATIONS: Medications at home include, levothyroxine, lisinopril, Eliquis, inhaler, and Neurontin. PHYSICAL EXAMINATION: GENERAL: The patient is seen in bed. VITAL SIGNS: Temperature of 98, blood pressure is 120/70, respiratory rate of 18, and a heart rate of 69. HEENT: Unremarkable. NECK: Supple. LUNGS: Have decreased breath sounds. HEART: Normal S1, S2. ABDOMEN: Soft, nontender. No rebound or guarding. No masses. LABORATORY EXAMINATION: Reveals the patient to have a white count of 9.6, hemoglobin of 14, platelets of 214. Blood gases are noted. Chemistries revealed the patient's creatinine is 2.5 on last admission, which was in December. The patient had a creatinine of 0.5 and also urinalysis is noted to have too numerous WBCs, a few bacteria. The patient had a chest x-ray, showed a right lower lobe infiltrate. EKG shows a QTC of 431, normal sinus rhythm, normal EKG, and Dr. Layo Arias's emergency room chart is reviewed. Review of the chest x-ray reveals the patient to have poor quality x-ray. 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, benign prostatic hypertrophy, Proteus urinary tract infection, gastrointestinal bleed secondary to a large gastric arteriovenous malformation, hypothyroidism, and psoriasis with microbiology from the past, which shows yeast in the urine in December and Escherichia and methicillin-resistant Staphylococcus aureus from the culture of the back, which was treated at that time with antibiotics and Proteus urinary tract infection also was treated at that time, now presenting with right lower lobe community-acquired pneumonia with acute kidney injury on top of chronic kidney failure, currently started on ceftriaxone and azithromycin. Pending urine for Legionella antigen, procalcitonin, blood cultures, urine cultures, and sputum cultures have been ordered. I will also add an MRSA nares screening test, and we will check on the panculture results and procalcitonin in addition to the cultures and initial workup results, and we will follow closely with you. Case discussed with PMD. Teddy Hazel MD
--- NOTE | 2018-08-03 23:50 | HP ---
DATE OF EXAM: 08/03/2018 CHIEF COMPLAINT: Low sugar reaction, urinary tract infection, and pneumonia on chest x-ray. HISTORY OF PRESENT ILLNESS: This is a 73-year-old man, who comes to the emergency room on Sunday late morning to early afternoon. This after being found lethargic and drowsy with altered mental status and low glucose. This was corrected in the field with IV glucose and comes to the emergency room with markedly cloudy and odorous urine. Workup continued in the emergency room and shows urine to be dark and cloudy. Although, his white count was normal, it was somewhat dry with hemoglobin of 14.7, and the creatinine of 2.5, which is elevated from his baseline. He was treated with IV fluids, glucose, antibiotics. Chest x-ray reported an infiltrate on the right lower lobe and so patient was admitted for IV antibiotics, IV fluids, gentle rehydration and monitoring of his glucose. PAST MEDICAL HISTORY: History significant for a slip and fall in 11/2017, at which time a large decubitus ulcer was found, was prompting in hospitalization and prolonged stay at a subacute rehab for wound care. He was hospitalized in 12/2017 for GI bleed and renal insufficiency and in 10/2017, for septic shock and pneumonia. His past medical history is also positive for diabetes, he is status post traumatic brain injury after falling from a roof many years ago, he has hypothyroidism, COPD, and psoriasis in the arms and legs. CURRENT MEDICATIONS: Taken from his office records include Synthroid, Neurontin, Eliquis, Zestril, Zanaflex, metformin, and glyburide. ALLERGIES: HE HAS NO KNOWN ALLERGIES TO MEDICATIONS. SOCIAL HISTORY: He is a . Lives with his daughter. Denies alcohol consumption. He continues to smoke as of recently. It is question of Eliquis on his medication list, I am uncertain as to the reason or cause. I will need to investigate this further through patient or family or old record research. REVIEW OF SYSTEMS: Essentially unremarkable except for symptoms related to age and arthritis, but he does climb stairs living on third floor of the walk-up apartment. PHYSICAL EXAMINATION: GENERAL: The patient was seen comfortably sitting in the chair, in no acute distress. HEAD AND NECK: Unremarkable. Conjunctivae are pink. Mucous membranes are moist. Neck is supple without masses. Thyroid not palpable. LUNGS: Show good aeration right and left. There was some basilar rales noted, which may have been dry crackles from atelectasis or perhaps the infiltrate noted on chest x-ray. HEART: Regular and non tachycardic. There was no significant harsh murmur. There was no noted ectopy during the exam. ABDOMEN: Moderately overweight. EXTREMITIES: Showed no edema. IMPRESSION: 1. Severe hypoglycemia at home most likely related to dietary restrictions and recent intentional 30 lb. weight loss, and medication taken, glyburide and metformin. 2. Urinary tract infection with severe odor and cloudy urine. 3. Pneumonia with infiltrate seen on chest x-ray. 4. Status post traumatic brain injury. 5. Hypertension. 6. Hypothyroidism. 7. Diabetes. 8. Status post large decubitus ulcer, now resolved. 9. Status post hospitalization for sepsis, pneumonia, and chronic obstructive pulmonary disease. 10. Ongoing tobacco use. 11. Eliquis listed on his medication list for reasons I am not certain at this time. ADDENDUM: [facility] 10/2017 PLAN: Patient will be admitted to med/surg floor, IV antibiotics, gentle hydration, monitor glucose. Certainly, would avoid long acting agents such as glyburide at this point and due to this hypoglycemic episode. We will check with Infectious Disease and may need to look at a CAT scan of the chest to follow up on this infiltrate as I see he has had pneumonia in that area in the past. ADDENDUM: [facility] Dannie Ramon MD MTDD
[2018-08-04] MEDS: Albuterol-Ipratrop 3 mg / 0.5 (3 ml) UD IH SCH ×4 (01:28→20:51)
[2018-08-04] MEDS: Insulin Reg-MEDIUM-Coverage SC SCH ×4 (08:07→22:43)
[2018-08-04] MEDS: Levothyroxine 100 MCG TAB PO SCH (08:32)
[2018-08-04] MEDS: cefTRIAXone 1 gm 1 GM/100 ML BAG IVPB SCH (09:16)
[2018-08-04] MEDS: Azithromycin 500MG/NS 250ml 500 MG/250 ML BAG IVPB SCH (09:18)
--- NOTE | 2018-08-04 18:52 | PN ---
DATE: 08/04/2018 SUBJECTIVE: The patient is in bed, in no acute distress, nontoxic. PHYSICAL EXAMINATION: VITAL SIGNS: Temperature is 98, blood pressure is 130/60, respiratory rate of 18. HEENT: Unremarkable. NECK: Supple. LUNGS: Have decreased breath sounds. HEART: Normal S1, S2. ABDOMEN: Soft. LABORATORY DATA: Reveals white count of 7.4, hemoglobin of 13. Creatinine is 2.2. Microbiology is reviewed and blood cultures are negative and urine cultures are negative. DIAGNOSTIC DATA: Chest x-ray has infiltrate in the right lower lobe. 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 Awaiting for urine Legionella antigen. Awaiting for methicillin-resistant Staphylococcus aureus screen and sputum culture and urine culture with a normal procalcitonin. We will follow closely with you. The patient is complaining of frequency. Teddy Hazel MD
--- NOTE | 2018-08-04 21:09 | PN ---
DATE: 08/04/2018 DAILY PROGRESS NOTE SUBJECTIVE: Patient was seen this Sunday morning in room 574, bed 2, resting comfortably in bed, but complaining of pain in the penis and urethra. PHYSICAL EXAMINATION HEAD AND NECK: Unremarkable. LUNGS: Clear with good aeration and decreased breath sounds with COPD. HEART: Regular and not tachycardic. ABDOMEN: Overweight. GENITALIA: Unremarkable except for some mild tinea cruris. Penis is unremarkable with no erythema or discharge. There if no Mesa catheter in place. IMPRESSION: 1. Hypoglycemia related to weight loss, dietary abstinence and medication, now resolved with elevated glucose. 2. Diabetes. 3. Urinary tract infection with dysuria. 4. Pneumonia on chest x-ray. PLAN: We will add Pyridium in view of the urethral discomfort as well as tramadol. I will write for physical therapy and out of bed. Because of the persistent chest infiltrates, we will ask for CT scan of the chest since the patient has had infiltrates in this area in the past. We will resume metformin at this point, but try to avoid long-acting hypoglycemic agents like glyburide. Dannie Ramon MD
[2018-08-05] MEDS: Albuterol-Ipratrop 3 mg / 0.5 (3 ml) UD IH SCH ×3 (02:42→13:43)
[2018-08-05] MEDS: Insulin Reg-MEDIUM-Coverage SC SCH ×4 (08:34→22:59)
[2018-08-05] MEDS: Levothyroxine 100 MCG TAB PO SCH (08:35)
[2018-08-05] MEDS: cefTRIAXone 1 gm 1 GM/100 ML BAG IVPB SCH (10:48)
[2018-08-05] MEDS: Azithromycin 500MG/NS 250ml 500 MG/250 ML BAG IVPB SCH (10:49)
--- NOTE | 2018-08-05 11:00 | CT ---
Date of service: 08/05/2018 PROCEDURE: CT Chest without contrast HISTORY: infiltrate on cxr, new infectious vs chronic COMPARISON: None available. TECHNIQUE: Contiguous axial images were obtained through the chest without intravenous contrast enhancement. Sagittal and coronal reconstructions were performed. Radiation dose: Total exam DLP = 745.69 mGy-cm. This CT exam was performed using one or more of the following dose reduction techniques: Automated exposure control, adjustment of the mA and/or kV according to patient size, and/or use of iterative reconstruction technique. FINDINGS: LUNGS: Clear lungs. Visualized airway clear MEDIASTINUM: Unremarkable thoracic aorta. No aneurysm. Normal sized heart. Main pulmonary artery unremarkable. No vascular congestion. No lymphadenopathy. Coronary artery calcifications and aortic calcifications. PLEURA: No pleural fluid. No pneumothorax. BONES: No fracture. No destructive lesion. UPPER ABDOMEN: Cirrhotic liver with left simple and hemorrhagic renal cysts. Dilated bilateral renal pelves. OTHER FINDINGS: None. IMPRESSION: No acute pathology in the chest.
[2018-08-05 11:28] LABS: HEMOGLOBIN 13.8 g/dL (14.0-18.0); MEAN CELL VOLUME 100.7 fl (80.0-105.0); MEAN CORPUSCULAR HEMOGLOBIN 32.9 pg (25.0-35.0); MEAN CORPUSCULAR HGB CONC 32.7 g/dl (31.0-37.0); MEAN PLATELET VOLUME 11.1 fl (7.0-11.0); RBC 4.19 10^6/uL (3.5-6.1); RED CELL DISTRIBUTION WIDTH 15.6 % (11.5-14.5); WHITE BLOOD COUNT 14.8 10^3/uL (4.5-11.0)
[2018-08-05 11:33] LABS: CALCIUM 9.3 mg/dL (8.4-10.5)
[2018-08-05] MEDS: Sodium Chloride 0.9% 1,000 ML IV SCH (12:47)
--- NOTE | 2018-08-05 14:28 | CARD ---
APPROVED REPORT Date of service: 08/05/2018 EKG Measurement Heart [id number] <Conclusion> Sinus tachycardia Inferior infarct, age undetermined Abnormal ECG
[2018-08-05] MEDS ORDERED: Levalbuterol 0.63 MG/3 ML Inhal Soln UD IH PRN (14:54)
--- NOTE | 2018-08-05 17:33 | CT ---
Date of service: 08/05/2018 PROCEDURE: CT Abdomen and Pelvis without intravenous contrast HISTORY: Urinary tract infection presenting with lower abdominal pain. COMPARISON: 12/18/2017 CT abdomen and pelvis. August 05, 2018 renal ultrasound TECHNIQUE: Unenhanced. Neither IV nor oral contrast administered Radiation dose: Total exam DLP = 898.54 mGy-cm. This CT exam was performed using one or more of the following dose reduction techniques: Automated exposure control, adjustment of the mA and/or kV according to patient size, and/or use of iterative reconstruction technique. FINDINGS: LOWER THORAX: Unremarkable. LIVER: Nodular contour to the liver suggestive of hepatocellular disease/cirrhosis. No focal hepatic masses. GALLBLADDER AND BILE DUCTS: Unremarkable. PANCREAS: Unremarkable. No gross lesion or ductal dilatation. SPLEEN: Unremarkable. ADRENALS: Unremarkable. No mass. KIDNEYS AND URETERS: No significant interval change compared to the prior examination(s). Bilateral renal cysts again identified. VASCULATURE: No aortic aneurysm. Atherosclerotic calcification and mural plaque present. Findings are seen throughout the aorta BOWEL: Constipation without fecal impaction or obstruction. Diverticulosis without an acute inflammatory component or other associated pathologic process. APPENDIX: Unremarkable. Normal appendix. PERITONEUM: Unremarkable. No free fluid. No free air. LYMPH NODES: Unremarkable. No enlarged lymph nodes. BLADDER: Mesa catheter decompresses the urinary bladder. The bladder wall is thickened and there perivesical inflammatory changes consistent with suspected urinary tract infection REPRODUCTIVE: Stable prostatic enlargement. BONES: No acute fracture. Stable compression deformities T12 and T11. Multilevel degenerative changes lumbar spine also stable. OTHER FINDINGS: None. IMPRESSION: Decompressed urinary bladder with Mesa catheter in place. Bladder wall thickening likely reflects cystitis. Otherwise no acute/significant findings. Additional benign and/or incidental findings described above.
--- NOTE | 2018-08-05 20:11 | CP.PCM.PN ---
Subjective - Date & Time of Evaluation Date of Evaluation: 08/05/18 Time of Evaluation: 09:25 - Subjective Subjective: Comfortable in bed, no fevers. Objective - Vital Signs/Intake and Output Vital Signs (last 24 hours): Temp Pulse Resp BP Pulse Ox 98.2 F 113 H 18 113/72 94 L 08/05/18 06:00 08/05/18 06:00 08/05/18 06:00 08/05/18 06:00 08/05/18 06:00 Intake and Output: 08/05/18 08/05/18 06:59 18:59 Intake Total 540 Output Total 400 Balance 140 - Medications Medications: Current Medications Acetaminophen (Tylenol 325mg Tab) 650 mg PO Q4H PRN PRN Reason: Pain, Mild (1-3) Last Admin: 08/04/18 22:57 Dose: 650 mg Albuterol/Ipratropium (Duoneb 3 Mg/0.5 Mg (3 Ml) Ud) 3 ml IH [id number] [facility] Last Admin: 08/05/18 07:10 Dose: 3 ml Alprazolam (Xanax) 0.25 mg PO Q6H PRN PRN Reason: Anxiety Stop: 08/09/18 17:47 Last Admin: 08/04/18 21:59 Dose: 0.25 mg Apixaban (Eliquis) 2.5 mg PO BID [facility]; Protocol Last Admin: 08/04/18 18:25 Dose: 2.5 mg Gabapentin (Neurontin) 300 mg PO TID [facility]; Protocol Last Admin: 08/04/18 18:25 Dose: 300 mg Ceftriaxone Sodium (Rocephin 1 Gram Ivpb) 1 gm in 100 mls @ 100 mls/hr IVPB DAILY [facility]; Protocol Last Admin: 08/04/18 09:16 Dose: 100 mls/hr Azithromycin (Zithromax 500mg In Ns) 500 mg in 250 mls @ 167 mls/hr IVPB DAILY [facility]; Protocol Last Admin: 08/04/18 09:18 Dose: 167 mls/hr Insulin Human Regular (Humulin R Med) 0 units SC ACHS [facility]; Protocol Last Admin: 08/04/18 22:43 Dose: 2 units Levothyroxine Sodium (Synthroid) 100 mcg PO ACB [facility] Last Admin: 08/05/18 08:35 Dose: 100 mcg Lisinopril (Zestril) 10 mg PO DAILY [facility] Last Admin: 08/04/18 09:14 Dose: 10 mg Lisinopril (Zestril) 10 mg PO DAILY [facility] Last Admin: 08/04/18 14:32 Dose: 10 mg Metformin HCl (Glucophage) 500 mg PO BID [facility] Phenazopyridine HCl (Pyridium) 100 mg PO [facility] Last Admin: 08/04/18 18:26 Dose: 100 mg Tramadol HCl (Ultram) 50 mg PO TID PRN PRN Reason: Pain, moderate (4-7) Last Admin: 08/05/18 02:50 Dose: 50 mg - Labs Labs: 08/03/18 07:30 08/03/18 07:30 - Constitutional Appears: Chronically Ill - Head Exam Head Exam: NORMAL INSPECTION - Respiratory Exam Respiratory Exam: Decreased Breath Sounds - Cardiovascular Exam Cardiovascular Exam: +S1, +S2 - GI/Abdominal Exam GI & Abdominal Exam: Soft. absent: Tenderness Assessment and Plan - Assessment and Plan (Free Text) Plan: Assessment right lower lobe community-acquired pneumonia history of infected sacral decubitus ulcer with probable osteomyelitis, S/P debridement CAD with chronic CHF DM HTN COPD hypothyroidism psoriasis S/P treatment for HCAP Plan Continue Rocephin and Zithromax day 3 to complete 5-7 days of therapy
[2018-08-06 00:52] LABS: PH,URINE 5.5 (4.7-8.0); URINE APPEARANCE CLOUDY (CLEAR); URINE BILIRUBIN SMALL (NEGATIVE); URINE BLOOD LARGE (NEGATIVE); URINE COLOR BROWN (YELLOW); URINE GLUCOSE (UA) 100 mg/dL (NEGATIVE); URINE LEUKOCYTE ESTERASE LARGE Leu/uL (NEGATIVE); URINE PROTEIN >=300 mg/dL (<30 mg/dL)
[2018-08-06 02:23] LABS: URINE BACTERIA MOD (NEG); URINE EPITHELIAL CELLS 0 - 2 /hpf (0-5); URINE WBC TNTC /hpf (0-6)
--- NOTE | 2018-08-06 02:42 | CON ---
DATE: 08/05/2018 Consult service, Cardiology, physician Dr. Foster. REASON FOR CONSULTATION: Cardiac evaluation, history of paroxysmal atrial fibrillation, admitted with sinus tachycardia, hypoglycemia, admitting blood sugar 39, cardiac evaluation. BRIEF CLINICAL HISTORY: This is a 73-year-old male with a past medical history significant for atrial fibrillation, on Eliquis, recent admission with osteomyelitis, on antibiotic, history of COPD, history of CHF, history of hypoglycemia, who was brought to the emergency room by ambulance. The patient had altered mental status. Blood sugar found to be 39, 1 amp of D-50 was given in the filed and the blood sugar went to 124. The patient denies any chest pain, shortness of breath, any palpitation. He claims that he had diarrhea prior to coming here and did not eat at night and went to bed, but took the pills, so the blood sugar went down. PAST MEDICAL HISTORY: Past history significant for morbid obesity, COPD, CHF, history of coronary artery disease, known history of hypertension, history of hypothyroidism, history of traumatic brain injury after a fall from the roof 14 years ago. History of exacerbation of COPD, history of forgetfulness in 2008 since then after a fall hospitalized in [facility] [place] in 2012 with exacerbation of COPD and then in 12/2017 with respiratory failure, history of AFib, history of pneumonia. CURRENT MEDICATION: The patient at home takes oxycodone 30 mg, Zanaflex 4 mg, lisinopril 10 mg, levothyroxine 100, gabapentin 300 mg, Symbicort one puff b.i.d., Eliquis 2.5 b.i.d. Previous cardiac workup as follows: The patient had an echocardiography on 10/12/2017 that shows left ventricle function normal, ejection fraction within the normal limit, no segmental wall motion abnormality, grade 4 diastolic dysfunction. No mitral regurgitation, no tricuspid regurgitation noted. Ejection fraction calculated 56%, right ventricular systolic pressure 23 mmHg, date of echo 10/12/2017. EKG shows sinus tachycardia. EKG on admission, 11/13, shows no acute ST-T changes noted. REVIEW OF SYSTEMS: As per HPI. The patient denies any chest pain, shortness of breath, any palpitation, except per HPI, blood sugar went down and had a mental status change. PHYSICAL EXAMINATION GENERAL: Height of the patient 5 feet 10 inches, weight of the patient 197 pounds, body mass index 28.3 kg/m2. VITAL SIGNS: Temperature afebrile, heart rate 113, blood pressure 120/59. HEENT: PERRLA intact. NECK: Supple. No carotid bruit or thyromegaly. CARDIOPULMONARY: S1, S2 regular. LUNGS: Clear to auscultation. Occasional scattered rhonchi noted. ABDOMEN: Soft. EXTREMITIES: Clubbing, cyanosis negative. LABORATORY DATA: Blood workup, WBC 14.8, hemoglobin 13.8, hematocrit 42.2, platelet count 203. Chemistry shows sodium 113, potassium 5.3, chloride 105, carbon dioxide 23, anion gap of 16, BUN 29, creatinine 3.4. ASSESSMENT: A 73-year-old male with past medical history of diabetes, paroxysmal atrial fibrillation, hypertension, chronic obstructive pulmonary disease, congestive heart failure, obesity, admitted with altered mental status secondary to hypoglycemia, acute kidney injury, worsening acute on chronic kidney condition. History of hypothyroidism, history of traumatic brain injury after a fall from a roof 14 years ago. History of forgetfulness. Admitted as mentioned because of the low sugar. Last echo showed preserved left ventricular function, ejection fraction 55%, did not show mitral regurgitation or tricuspid regurgitation. The patient has a history of paroxysmal atrial fibrillation, but last couple of EKG shows sinus tachycardia. PLAN: We will get a TSH, lipid profile, hemoglobin A1c, repeat echo, and start low-dose beta-cassandra. Further recommendations as per hospital course. We will follow with you. Thank you Dr. Ramon for the opportunity in taking care of the patient Sonia Bales. We will follow with you. We will follow the blood cultures if not done. Josue Foster MD
--- NOTE | 2018-08-06 07:55 | CP.PCM.PN ---
Subjective - Date & Time of Evaluation Date of Evaluation: 08/06/18 Time of Evaluation: 06:45 - Subjective Subjective: Awake, alert, no distress Reason for consultation and follow up: Cardiac evaluation of sinus tachycardia, history of atrial fibrillation, admitted for hypoglycemia Seen and examined by me and Dr. Foster Objective - Vital Signs/Intake and Output Vital Signs (last 24 hours): Temp Pulse Resp BP Pulse Ox 98.6 F 82 20 95/47 L 91 L 08/05/18 23:07 08/05/18 23:07 08/05/18 23:07 08/05/18 23:07 08/05/18 23:07 Intake and Output: 08/06/18 08/06/18 06:59 18:59 Intake Total 820 Output Total 1550 Balance -730 - Medications Medications: Current Medications Acetaminophen (Tylenol 325mg Tab) 650 mg PO Q4H PRN PRN Reason: Pain, Mild (1-3) Last Admin: 08/04/18 22:57 Dose: 650 mg Alprazolam (Xanax) 0.25 mg PO Q6H PRN PRN Reason: Anxiety Stop: 08/09/18 17:47 Last Admin: 08/04/18 21:59 Dose: 0.25 mg Apixaban (Eliquis) 2.5 mg PO BID [facility]; Protocol Last Admin: 08/05/18 18:46 Dose: 2.5 mg Gabapentin (Neurontin) 300 mg PO TID [facility]; Protocol Last Admin: 08/05/18 18:46 Dose: 300 mg Hydralazine HCl (Apresoline) 10 mg PO QID PRN PRN Reason: for SBP>160 Ceftriaxone Sodium (Rocephin 1 Gram Ivpb) 1 gm in 100 mls @ 100 mls/hr IVPB DAILY [facility]; Protocol Last Admin: 08/05/18 10:48 Dose: 100 mls/hr Azithromycin (Zithromax 500mg In Ns) 500 mg in 250 mls @ 167 mls/hr IVPB DAILY [facility]; Protocol Last Admin: 08/05/18 10:49 Dose: 167 mls/hr Sodium Chloride (Sodium Chloride 0.9%) 1,000 mls @ 50 mls/hr IV .Q20H [facility] Last Admin: 08/05/18 12:47 Dose: 50 mls/hr Insulin Human Regular (Humulin R Med) 0 units SC ACHS [facility]; Protocol Last Admin: 08/05/18 22:59 Dose: Not Given Levalbuterol HCl (Xopenex) 0.63 mg IH [id number] PRN PRN Reason: Shortness of Breath Levothyroxine Sodium (Synthroid) 100 mcg PO ACB [facility] Last Admin: 08/05/18 08:35 Dose: 100 mcg Lisinopril (Zestril) 10 mg PO DAILY [facility] Last Admin: 08/05/18 09:50 Dose: 10 mg Metformin HCl (Glucophage) 500 mg PO BID [facility] Metoprolol Tartrate (Lopressor) 50 mg PO BID [facility] Last Admin: 08/05/18 18:45 Dose: 50 mg Phenazopyridine HCl (Pyridium) 100 mg PO [facility] Last Admin: 08/05/18 18:47 Dose: 100 mg Tamsulosin HCl (Flomax) 0.4 mg PO DAILY [facility] Last Admin: 08/05/18 10:51 Dose: 0.4 mg Tramadol HCl (Ultram) 50 mg PO TID PRN PRN Reason: Pain, moderate (4-7) Last Admin: 08/05/18 09:48 Dose: 50 mg - Labs Labs: 08/05/18 11:19 08/05/18 11:19 - Constitutional Appears: Non-toxic, No Acute Distress - Head Exam Head Exam: NORMAL INSPECTION, NORMOCEPHALIC - Eye Exam Eye Exam: Normal appearance Pupil Exam: NORMAL ACCOMODATION - ENT Exam ENT Exam: Mucous Membranes Moist, Normal Exam - Respiratory Exam Respiratory Exam: Decreased Breath Sounds, NORMAL BREATHING PATTERN - Cardiovascular Exam Cardiovascular Exam: +S1, +S2 - GI/Abdominal Exam GI & Abdominal Exam: Soft, Normal Bowel Sounds - Exam Additional comments: dimas catheter - Extremities Exam Extremities Exam: Full ROM, Normal Capillary Refill - Neurological Exam Neurological Exam: Alert, Awake, Oriented x3 - Psychiatric Exam Psychiatric exam: Normal Affect, Normal Mood - Skin Skin Exam: Dry, Normal Color, Warm Assessment and Plan - Assessment and Plan (Free Text) Assessment: A 73 year old male who came in to the ER due to altered mental status. Blood gl ucose was 39mg/dl when checked by EMS. D50W 1 amp given. Repeat was 124mg/dl. History of atrial fibrillation on Eliquis, COPD, osteomyelitis on antibiotics.Also had diarrhea the night before so he did not eat. Patient had some coughing. 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 ECHO done on 10/12/2017 showed LVEF 56%. EKG showed sinus tachycardia. chest X ray showed RLL infiltrate. ID on consult and started antibiotics Plan: Denies shortness of breath Denies chest pain Controlled blood pressure Controlled heart rate Urine positive for UTI Chest Xray- RLL infiltrate ID on consult Continue antibiotics as per ID On Eliquis 2.5 mg BID,Hydralazine 10 mg QID PRN,Synthroid 100mcg daily, Lopressor 50 mg BID,Flomax 0.4 mg daily, Continue current treatment Continue current medications Chart reviewed. Will follow up Plan and treatment discussed with Dr. Foster
[2018-08-06 08:13] LABS: CALCIUM 8.7 mg/dL (8.4-10.5)
[2018-08-06 08:17] LABS: HEMOGLOBIN 12.2 g/dL (14.0-18.0); RBC 3.68 10^6/uL (3.5-6.1); WHITE BLOOD COUNT 12.6 10^3/uL (4.5-11.0)
[2018-08-06 08:18] LABS: MEAN CELL VOLUME 104.9 fl (80.0-105.0); MEAN CORPUSCULAR HEMOGLOBIN 33.2 pg (25.0-35.0); MEAN CORPUSCULAR HGB CONC 31.6 g/dl (31.0-37.0); MEAN PLATELET VOLUME 12.2 fl (7.0-11.0)
[2018-08-06] MEDS: cefTRIAXone 1 gm 1 GM/100 ML BAG IVPB SCH (09:40)
[2018-08-06] MEDS: Insulin Reg-MEDIUM-Coverage SC SCH ×4 (09:40→22:47)
[2018-08-06] MEDS: Sodium Chloride 0.9% 1,000 ML IV SCH (09:41)
[2018-08-06] MEDS: Azithromycin 500MG/NS 250ml 500 MG/250 ML BAG IVPB SCH (09:41)
[2018-08-06] MEDS: Levothyroxine 100 MCG TAB PO SCH (09:44)
[2018-08-06] MEDS: Insulin Reg-LOW-Coverage SC SCH ×3 (12:01→22:46)
--- NOTE | 2018-08-06 12:43 | US ---
Date of service: 08/05/2018 PROCEDURE: Ultrasound of the Kidneys HISTORY: urinary retention COMPARISON: CT abdomen and pelvis from 08/05/2018. TECHNIQUE: Grayscale imaging was performed. FINDINGS: RIGHT KIDNEY: Measures: 9 point cm. Normal in size, contour with diffuse increased echogenicity. No stone, solid mass lesion or hydronephrosis visualized. There is a 1.7 x 1.3 x 1.5 cm septated cyst in the interpolar region and 2.7 x 2.7 x 2.7 cm simple cyst in the lower pole. LEFT KIDNEY: Measures: 10.5 cm. Normal in size, contour with diffuse increased echogenicity. No stone, solid mass lesion or hydronephrosis visualized. There is a 2.3 x 2.3 x 2.3 cm simple cyst in the upper pole, 1.3 cm complicated/hemorrhagic cyst in the interpolar region and 1.7 cm cyst in the lower pole. OTHER FINDINGS: None. IMPRESSION: Chronic renal parenchymal disease. Simple and complicated cysts in the kidneys, the largest the right lower pole measures 2.7 cm.
--- NOTE | 2018-08-06 13:06 | PN ---
DATE: 08/06/2018 REASON FOR CONSULTATION AND FOLLOWUP: Cardiac evaluation, sinus tachycardia, history of atrial fibrillation, admitted with hypoglycemia. The patient denies any chest pain, shortness of breath or any palpitation. EKG shows normal sinus. The patient is on Eliquis. 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 Echo on 10/12/2017 showed an ejection fraction of 56 percent. EKG shows sinus tachycardia. Chest x-ray shows right lower lobe infiltrate. RECOMMENDATION: Continue antibiotic, continue Eliquis, continue Lopressor 50 mg twice a day. TSH done shows 2.41. History of renal insufficiency, creatinine 4.6. Avoid nephrotoxic medication. Continue Eliquis twice a day and continue beta cassandra. Hold metformin because of the worsening renal insufficiency, risk of lactic acidosis. Continue beta cassandra 50 twice a day. Continue levothyroxine. I will follow with you. This noted is addition to dictated by our nurse practitioner, Thais Jeter. Thank you Dr. Ramon for providing us the opportunity in taking care of Nii Scott. Josue Foster MD
--- NOTE | 2018-08-06 16:03 | US ---
Date of service: 08/06/2018 PROCEDURE: Ultrasound of the Bladder HISTORY: ?enlarged prostate, urinary retention COMPARISON: None available. TECHNIQUE: Sonographic evaluation of the bladder was performed. FINDINGS: Unremarkable without wall thickening or intraluminal debris. No calculus or gross mass lesion. No free fluid in pelvis. Prevoid Volume: 82 cc. Post void residual: 0 cc. IMPRESSION: Unremarkable sonogram of the bladder.
[2018-08-06] MEDS: POLYETHYLENE GLYCOL 3350 17 GM/Dose PACKET PO SCH (17:07)
--- NOTE | 2018-08-06 21:12 | CON ---
DATE OF CONSULTATION: 08/06/2018 CHIEF COMPLAINT: Hypoglycemia. HISTORY OF PRESENT ILLNESS: This is a 73-year-old male who is seen in [facility]. The patient originally was having an apparent altered mental status and found to have hypoglycemia. His daughter was concerned and brought him to the emergency room. Reportedly, during the admission, the patient was found to have a urinary infection where the urine was cloudy and odorous. The Mesa catheter was placed at some point. It is unclear how much urine was in his bladder at this time. Apparently, the patient does have a history of BPH. He now has been started on tamsulosin and a consultation was requested. The patient is awake and answering questions, although not currently coherent and most of his answers are likely not accurate as he is a poor historian. He reports prior to admission he was voiding without difficulty. He denies any pertinent urologic history. PAST MEDICAL HISTORY: Significant for falls at home, large decubital ulcer, GI bleed, renal insufficiency, sepsis, pneumonia, diabetes, post traumatic brain injury, hypothyroidism, COPD, and psoriasis. FAMILY HISTORY: Noncontributory. SOCIAL HISTORY: Positive for active smoking and a long smoking history. Negative for EtOH use. MEDICATIONS FROM HOME: Synthroid, Neurontin, Eliquis, Zestril, Zanaflex, metformin and glyburide. REVIEW OF SYSTEMS: A 12-point review of systems is asked from the patient. Currently, he only reports pain from his Mesa catheter and some weakness and lethargy. Otherwise, he reports other systems are negative. He does report he he did have a cough and shortness of breath, but that has resolved. PHYSICAL EXAMINATION: GENERAL: The patient is awake and answering questions, although still appears to have an altered mental status, but I am unsure what his baseline is. NECK: Supple. There is no adenopathy. CHEST: Slightly increased inspiratory effort. CARDIAC: Positive S1 and S2. There is mild peripheral edema noted. ABDOMEN: Obese, soft, nontender, nondistended. There is no hepatosplenomegaly or costovertebral angle tenderness. : Phallus is normal. There is a Mesa catheter in place, which is draining clear colored urine. Scrotum is normal. Testes are bilaterally descended, nontender, no masses. Epididymis are normal. EXTREMITIES: There is no cyanosis. There is mild peripheral edema noted. LABORATORY EXAM: WBC count 12.6, which is down from 14.8. Creatinine of 4.6 with a GFR of 13. GFR was 25 on 08/02/2018. Urinalysis was positive for nitrites, too numerous to count wbc, 2-5 rbc's, protein greater than 300. RADIOLOGIC EXAM: The patient had a CT scan of the abdomen and pelvis from 08/05/2018, which showed there is no interval change compared to prior examination of the kidneys. Bilateral renal cysts were identified. Bladder had a Mesa catheter decompressing the bladder. The bladder wall was thickened. There was perivesical inflammation consistent with suspected urinary tract infection. Stable prostatic enlargement. He had compression deformities of T12 and T11. There is diverticulosis without evidence of diverticulitis. There was constipation without fecal impaction or obstruction. IMPRESSION AND PLAN: This is a 73-year-old male with urinary retention, possible urinary infection, but the urine culture from 08/02/2018 showed no growth. The positive nitrites on his urine at this time are from him taking Pyridium, which is why his urine is orange colored. As for the urinary retention, it is unclear what the volume was in his bladder when the Mesa catheter was inserted. The patient has been started on tamsulosin and I would continue him on this medication as well as with the Mesa catheter in place for the next few days. The patient also has apparent renal insufficiency, which appears to be worsening with a GFR of 15. There is no evidence of hydronephrosis or obstruction. I would recommend a nephrology consultation as well. As far as the urine, I would recommend a repeat urine culture when the patient is off of antibiotics. He is currently being treated for pneumonia and I would leave the Mesa catheter in place until the patient is improved in mental status and out of bed able to ambulate to the bathroom. We will then consider removal of Mesa catheter for a voiding trial. Thank you for allowing me to participate in the care of this patient. We will follow along with you. Ike Munoz MD
--- NOTE | 2018-08-07 01:47 | PN ---
DATE: 08/06/2018 SUBJECTIVE: The patient is in bed, in no acute distress, nontoxic. PHYSICAL EXAMINATION: VITAL SIGNS: Temperature is 98, blood pressure is 120/70, respiratory rate 16. HEENT: Unremarkable. NECK: Supple. LUNGS: Have decreased breath sounds. HEART: Normal S1, S2. ABDOMEN: Soft. LABORATORY EXAMINATION: Reveals a white count of 12,600, hemoglobin 12, BUN of 37, creatinine 4.6. Urinalysis is noted. Microbiology is reviewed. ASSESSMENT AND PLAN: This is a 73-year-old with right lower lobe community-acquired pneumonia, history of infected sacral decubitus ulcer, probable osteomyelitis, status post debridement, coronary artery disease, chronic heart failure, diabetes, hypertension. Day #4 of antibiotics. The patient had a CAT scan of the chest, which revealed no evidence of pneumonia. Dr. Munoz's consultation is reviewed. The patient is having dysuria and frequency. Currently on ceftriaxone and we will discontinue the Zithromax since there is no pneumonia on the CAT of the chest. We will check on the repeat urine culture. On ceftriaxone. Teddy Hazel MD
[2018-08-07 04:50] LABS: URINE BILIRUBIN NEGATIVE (NEGATIVE); URINE BLOOD MODERATE (NEGATIVE); URINE GLUCOSE (UA) NEGATIVE (NEGATIVE); URINE LEUKOCYTE ESTERASE MODERATE Leu/uL (NEGATIVE); URINE PROTEIN 30 mg/dL (<30 mg/dL); URINE UROBILINOGEN 0.2 E.U./dL (<1 E.U./dL)
[2018-08-07 05:11] LABS: URINE APPEARANCE SL CLOUDY (CLEAR); URINE COLOR DARK YELLOW (YELLOW)
[2018-08-07 05:14] LABS: URINE BACTERIA OCC (NEG); URINE EPITHELIAL CELLS 0 - 2 /hpf (0-5)
[2018-08-07] MEDS: Insulin Reg-LOW-Coverage SC SCH ×3 (07:18→17:14)
[2018-08-07] MEDS: Insulin Reg-MEDIUM-Coverage SC SCH (07:19)
[2018-08-07] MEDS: Levothyroxine 100 MCG TAB PO SCH (07:34)
[2018-08-07] MEDS: Sodium Chloride 0.9% 1,000 ML IV SCH (07:34)
--- NOTE | 2018-08-07 07:46 | CP.PCM.PN ---
Subjective - Date & Time of Evaluation Date of Evaluation: 08/07/18 Time of Evaluation: 06:50 - Subjective Subjective: Lying in bed, no distress Reason for consultation and follow up: Cardiac evaluation of sinus tachycardia, history of atrial fibrillation, admitted for hypoglycemia Seen and examined by me and Dr. Foster Objective - Vital Signs/Intake and Output Vital Signs (last 24 hours): Temp Pulse Resp BP Pulse Ox 98.8 F 73 20 99/51 L 92 L 08/06/18 22:11 08/06/18 22:11 08/06/18 22:11 08/06/18 22:11 08/06/18 22:11 Intake and Output: 08/07/18 08/07/18 06:59 18:59 Intake Total 480 Output Total 1420 Balance -940 - Medications Medications: Current Medications Acetaminophen (Tylenol 325mg Tab) 650 mg PO Q4H PRN PRN Reason: Pain, Mild (1-3) Last Admin: 08/04/18 22:57 Dose: 650 mg Alprazolam (Xanax) 0.25 mg PO Q6H PRN PRN Reason: Anxiety Stop: 08/09/18 17:47 Last Admin: 08/04/18 21:59 Dose: 0.25 mg Apixaban (Eliquis) 2.5 mg PO BID [facility]; Protocol Last Admin: 08/06/18 17:07 Dose: 2.5 mg Gabapentin (Neurontin) 300 mg PO TID [facility]; Protocol Last Admin: 08/06/18 17:07 Dose: 300 mg Hydralazine HCl (Apresoline) 10 mg PO QID PRN PRN Reason: for SBP>160 Ceftriaxone Sodium (Rocephin 1 Gram Ivpb) 1 gm in 100 mls @ 100 mls/hr IVPB DAILY [facility]; Protocol Last Admin: 08/06/18 09:40 Dose: 100 mls/hr Sodium Chloride (Sodium Chloride 0.9%) 1,000 mls @ 50 mls/hr IV .Q20H [facility] Last Admin: 08/07/18 07:34 Dose: 50 mls/hr Insulin Human Regular (Humulin R Med) 0 units SC ACHS [facility]; Protocol Last Admin: 08/07/18 07:19 Dose: Not Given Insulin Human Regular (Humulin R Low) 0 units SC ACHS [facility]; Protocol Last Admin: 08/07/18 07:18 Dose: Not Given Levalbuterol HCl (Xopenex) 0.63 mg IH [id number] PRN PRN Reason: Shortness of Breath Levothyroxine Sodium (Synthroid) 100 mcg PO ACB [facility] Last Admin: 08/07/18 07:34 Dose: 100 mcg Lisinopril (Zestril) 10 mg PO DAILY [facility] Last Admin: 08/05/18 09:50 Dose: 10 mg Metoprolol Tartrate (Lopressor) 50 mg PO BID [facility] Last Admin: 08/06/18 17:11 Dose: Not Given Phenazopyridine HCl (Pyridium) 100 mg PO PC [facility] Last Admin: 08/06/18 17:07 Dose: 100 mg Polyethylene Glycol (Miralax) 17 gm PO DAILY [facility] Last Admin: 08/06/18 17:07 Dose: 17 gm Tamsulosin HCl (Flomax) 0.4 mg PO DAILY [facility] Last Admin: 08/06/18 09:39 Dose: 0.4 mg Tramadol HCl (Ultram) 50 mg PO TID PRN PRN Reason: Pain, moderate (4-7) Last Admin: 08/05/18 09:48 Dose: 50 mg - Labs Labs: 08/06/18 07:20 08/06/18 07:20 - Constitutional Appears: Non-toxic, No Acute Distress - Head Exam Head Exam: NORMAL INSPECTION, NORMOCEPHALIC - ENT Exam ENT Exam: Mucous Membranes Moist - Respiratory Exam Respiratory Exam: Clear to Ausculation Bilateral, NORMAL BREATHING PATTERN - Cardiovascular Exam Cardiovascular Exam: +S1, +S2 Additional comments: no JVD - GI/Abdominal Exam GI & Abdominal Exam: Soft, Normal Bowel Sounds - Extremities Exam Extremities Exam: Full ROM, Normal Capillary Refill - Neurological Exam Neurological Exam: Alert, Awake - Psychiatric Exam Psychiatric exam: Normal Affect, Normal Mood - Skin Skin Exam: Dry, Normal Color, Warm Assessment and Plan - Assessment and Plan (Free Text) Assessment: A 73 year old male who came in to the ER due to altered mental status. Blood glucose was 39mg/dl when checked by EMS. D50W 1 amp given. Repeat was 124mg/dl. History of atrial fibrillation on Eliquis, COPD, osteomyelitis on antibiotics.Also had diarrhea the night before so he did not eat. Patient had some coughing. 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 ECHO done on 10/12/2017 showed LVEF 56%. EKG showed sinus tachycardia. chest X ray showed RLL infiltrate. ID on consult and started antibiotics, Afebrile,vital signs stable. Plan: No distress Denies shortness of breath Denies chest pain Controlled blood pressure Controlled heart rate Cardiac status stable Continue antibiotics as per ID On Eliquis 2.5 mg BID,Hydralazine 10 mg QID PRN,Synthroid 100mcg daily, Lopressor 50 mg BID,Flomax 0.4 mg daily, Continue current treatment Continue current medications Chart reviewed. Will follow up Plan and treatment discussed with Dr. Foster
[2018-08-07 07:57] LABS: HEMOGLOBIN 11.8 g/dL (14.0-18.0); MEAN CELL VOLUME 102.5 fl (80.0-105.0); MEAN CORPUSCULAR HEMOGLOBIN 32.7 pg (25.0-35.0); MEAN CORPUSCULAR HGB CONC 31.9 g/dl (31.0-37.0); MEAN PLATELET VOLUME 11.3 fl (7.0-11.0); RBC 3.61 10^6/uL (3.5-6.1); RED CELL DISTRIBUTION WIDTH 15.5 % (11.5-14.5); WHITE BLOOD COUNT 12.7 10^3/uL (4.5-11.0)
[2018-08-07 08:05] LABS: CALCIUM 8.4 mg/dL (8.4-10.5)
[2018-08-07] MEDS ORDERED: Albuterol-Ipratrop 3 mg / 0.5 (3 ml) UD IH PRN (08:41)
[2018-08-07] MEDS: POLYETHYLENE GLYCOL 3350 17 GM/Dose PACKET PO SCH (09:19)
[2018-08-07] MEDS: cefTRIAXone 1 gm 1 GM/100 ML BAG IVPB SCH (09:20)
--- NOTE | 2018-08-07 10:22 | PN ---
DATE: 08/06/2018 SUBJECTIVE: The patient is seen late this Sunday evening in room 574, bed 1, sitting on the bed and chair with the [place] catheter in place. Urine is discolored from the Pyridium. PHYSICAL EXAMINATION HEENT: Head and neck were unremarkable. LUNGS: There are some scattered wheezes in all lung east. HEART: Regular, not tachycardic. PLAN: We will check morning labs. Discontinue the Pyridium. Continue the DuoNeb, aerosol treatments. Consider repeat chest x-ray. Dannie Ramon MD
[2018-08-07] MEDS ORDERED: Sodium Chloride 0.9% 1,000 ML IV SCH (11:56)
[2018-08-07] MEDS: Albuterol-Ipratrop 3 mg / 0.5 (3 ml) UD IH SCH ×2 (13:20→21:15)
--- NOTE | 2018-08-07 14:04 | PN ---
DATE: 08/07/2018 REASON FOR CONSULTATION AND FOLLOWUP: Cardiac evaluation history of atrial fibrillation, admitted with hypoglycemia. This note is addition to dictated by nurse practitioner. Patient feels okay. Denies any chest pain, shortness of breath or any palpitation. Patient's admitting blood sugar was 39. Repeat blood sugar improved. History of paroxysmal atrial fibrillation, on Eliquis; hypertension; hypothyroidism; history of coronary artery disease; pneumonia. LABORATORY DATA: Echo on 10/12/2017 showed ejection fraction 55 percent. EKG shows sinus tachycardia. Chest x-ray: Possible right lower lobe pneumonia. RECOMMENDATION: Continue antibiotic as per ID. Continue Eliquis. Blood pressure is on high side on admitting, but now is 90. I will put as needed hydralazine. The heart rate was also 120, we will cut down the metoprolol to 25 orally twice a day with holding parameters. We will follow. Put lisinopril on hold. We will also decrease metoprolol to 25 orally twice a day with hold for systolic less than 120 and heart rate less than 60. Patient has baseline renal insufficiency with a creatinine clearance , end-stage for CKD disease, hyperkalemia. Repeat SMA-7 in the morning. Avoid nephrotoxic medication. Acute kidney injury and chronic renal insufficiency, as needed hydralazine. Discontinue lisinopril because of the worsening renal insufficiency as well as the patient has a low blood pressure. Thank you Dr. Ramon for providing us the opportunity in taking care of the patient, Nii Scott. Josue Foster MD
--- NOTE | 2018-08-07 18:09 | CON ---
DATE: 08/07/2018 PULMONARY CONSULTATION REASON FOR PULMONARY CONSULTATION: Wheezing. REFERRING PHYSICIAN FOR THIS PULMONARY CONSULTATION: Dr. Dannie Ramon. SOURCE OF THE HISTORY: History is obtained via extensive discussion with the nurse. I have also reviewed the chart at length, and discussed the case with the patient at length. HISTORY OF PRESENT ILLNESS: The patient is a chronically ill 73-year-old male, with past medical history significant for advanced chronic obstructive pulmonary disease, congestive heart failure, chronic atrial fibrillation (on Eliquis), diabetes mellitus, who presented to [facility] - originally on 08/02/2018 - with lethargy. Apparently, the patient was noted to be lethargic by the daughter. The daughter also noted that the patient's fingerstick was significantly low. Emergency Medical Services were then called on the scene, and the patient received glucose (D50). His mental status improved. However, he was still transported to [facility] for additional evaluation and treatment. Again, I did discuss the case with the nurse and the patient at length. The patient is not short of breath at rest. He does have chronic occasional dyspnea on exertion. He also has a chronic occasional cough with occasional sputum production--unchanged. There is no history of chest pain, coughing up of blood, or chest pain - made worse with deep respirations. There is no history of temperatures, chills or infectious exposure. There is no history of night sweats, weight loss or appetite change prior to the above events. No history of leg or calf pains. No history of syncope or diaphoresis. No history of recent travel or trauma. REVIEW OF SYSTEMS: There is a history of dysuria with malodorous urine at home. No nausea, vomiting or diarrhea. No acute musculoskeletal complaints. Rest of the review of systems is negative. ALLERGIES: NO KNOWN ALLERGIES. SOCIAL HISTORY: Positive for tobacco. Negative for alcohol. FAMILY HISTORY: No inheritable diseases. HOME MEDICATIONS: Include oxycodone, Zanaflex, Zestril, Synthroid, Neurontin, Symbicort, and Eliquis PHYSICAL EXAMINATION: GENERAL: The patient appears comfortable this morning. He is not short of breath at rest. VITAL SIGNS: Temperature is 98.3, pulse 79, respirations 18, blood pressure 135/57. Oxygen saturation on room air is 95%. HEENT: Normocephalic, atraumatic. No JVD. CARDIOVASCULAR: Systolic ejection murmur at the lower left sternal border. No S3 gallop. LUNGS: Decreased breath sounds at the bases. Minimal bilateral rhonchi. A few expiratory wheezes are also appreciated. EXTREMITIES: Positive for mild edema. No cyanosis. No clubbing. Calves are nontender to palpation. GASTROINTESTINAL: Abdomen is soft, nontender and nondistended. Bowel sounds are positive. SKIN: No acute rash. NEUROLOGIC: Exam limited at the present time. PERTINENT LABORATORY DATA: CAT scan of the chest was done on 08/05/2018 and reviewed. The lungs are clear. Visualized airways are clear. There is no pulmonary mass or consolidation noted. There is no lymphadenopathy. CBC: White count 12.7K, hemoglobin 11.8, hematocrit 37.0, platelets of 168,000. Complete metabolic profile: Potassium 5.4, chloride 111, BUN 42, creatinine 4.5, glucose 142. Rest of the metabolic profile is within normal limits. Urinalysis on 08/07/2018: Urine nitrite--positive. Urine leukocyte esterase - moderate. IMPRESSION: 1. Probable urinary tract infection. 2. Chronic obstructive pulmonary disease. 3. Mild bronchospasm. 4. Chronic atrial fibrillation. 5. Renal insufficiency. PLAN: Again, I did discuss the case with the nurse at length. I have also reviewed the chart at length, discussed case with the patient at length. The patient presented to [facility] - originally on 08/02/2018 - with lethargy. Apparently, the patient was found by his daughter-- with a very low fingerstick. Again, the patient did receive glucose on transport to [facility]. His lethargy had resolved. I did review the CT scan of the chest. There are no acute abnormalities seen. On physical exam, there is mild bronchospasm noted. However, there is no significant alveolar-arterial gradient. Oxygen saturation on room air is 95%. I will start the patient on DuoNeb treatments and inhaled steroids this morning. The patient remains on antibiotic therapy - as per Infectious Disease. Inputs by Urology and Infectious Disease are noted. Input by Cardiology is also noted. The patient remains on Eliquis. Clinical status of the patient is certainly improved - compared to his initial presentation. However, given the above, the patient's overall status/prognosis does remain somewhat guarded. I will discuss the above with Dr. Ramon. Thank you very much for this Pulmonary consultation. Umair Kauffman MD JOYCE
--- NOTE | 2018-08-07 19:28 | CP.PCM.PN ---
Subjective - Date & Time of Evaluation Date of Evaluation: 08/07/18 Time of Evaluation: 09:40 - Subjective Subjective: Comfortable in bed, afebrile. Objective - Vital Signs/Intake and Output Vital Signs (last 24 hours): Temp Pulse Resp BP Pulse Ox 97.9 F 73 20 116/59 L 97 08/07/18 14:00 08/07/18 14:00 08/07/18 14:00 08/07/18 14:00 08/07/18 14:00 - Medications Medications: Current Medications Acetaminophen (Tylenol 325mg Tab) 650 mg PO Q4H PRN PRN Reason: Pain, Mild (1-3) Last Admin: 08/04/18 22:57 Dose: 650 mg Albuterol/Ipratropium (Duoneb 3 Mg/0.5 Mg (3 Ml) Ud) 3 ml IH [id number] [facility] Last Admin: 08/07/18 13:20 Dose: 3 ml Albuterol/Ipratropium (Duoneb 3 Mg/0.5 Mg (3 Ml) Ud) 3 ml IH Q2H PRN PRN Reason: Shortness of Breath Alprazolam (Xanax) 0.25 mg PO Q6H PRN PRN Reason: Anxiety Stop: 08/09/18 17:47 Last Admin: 08/04/18 21:59 Dose: 0.25 mg Apixaban (Eliquis) 2.5 mg PO BID [facility]; Protocol Last Admin: 08/07/18 17:14 Dose: 2.5 mg Budesonide (Pulmicort Respules) 0.5 mg IH [id number] [facility] Gabapentin (Neurontin) 300 mg PO TID [facility]; Protocol Last Admin: 08/07/18 17:14 Dose: 300 mg Hydralazine HCl (Apresoline) 10 mg PO QID PRN PRN Reason: for SBP>160 Ceftriaxone Sodium (Rocephin 1 Gram Ivpb) 1 gm in 100 mls @ 100 mls/hr IVPB DAILY [facility]; Protocol Last Admin: 08/07/18 09:20 Dose: 100 mls/hr Sodium Chloride (Sodium Chloride 0.9%) 1,000 mls @ 100 mls/hr IV .Q10H [facility] Last Admin: 08/07/18 17:15 Dose: 100 mls/hr Insulin Human Regular (Humulin R Low) 0 units SC ACHS [facility]; Protocol Last Admin: 08/07/18 17:14 Dose: 2 units Levothyroxine Sodium (Synthroid) 100 mcg PO ACB [facility] Last Admin: 08/07/18 07:34 Dose: 100 mcg Lisinopril (Zestril) 10 mg PO DAILY [facility] Last Admin: 08/05/18 09:50 Dose: 10 mg Metoprolol Tartrate (Lopressor) 25 mg PO BID [facility] Last Admin: 08/07/18 17:14 Dose: Not Given Phenazopyridine HCl (Pyridium) 100 mg PO PC [facility] Last Admin: 08/07/18 17:14 Dose: 100 mg Polyethylene Glycol (Miralax) 17 gm PO DAILY [facility] Last Admin: 08/07/18 09:19 Dose: Not Given Tamsulosin HCl (Flomax) 0.4 mg PO DAILY [facility] Last Admin: 08/07/18 09:18 Dose: 0.4 mg Tramadol HCl (Ultram) 50 mg PO TID PRN PRN Reason: Pain, moderate (4-7) Last Admin: 08/05/18 09:48 Dose: 50 mg - Labs Labs: 08/07/18 07:20 08/07/18 07:20 - Constitutional Appears: Chronically Ill - Head Exam Head Exam: NORMAL INSPECTION - Respiratory Exam Respiratory Exam: Decreased Breath Sounds - Cardiovascular Exam Cardiovascular Exam: +S1, +S2 - GI/Abdominal Exam GI & Abdominal Exam: Soft. absent: Tenderness Assessment and Plan - Assessment and Plan (Free Text) Plan: Assessment R/O UTI S/P right lower lobe community-acquired pneumonia history of infected sacral decubitus ulcer with probable osteomyelitis, S/P de bridement CAD with chronic CHF DM HTN COPD hypothyroidism psoriasis S/P treatment for HCAP Plan Continue Rocephin day 5 to complete 5-7 days - repeat urine cx is negative - january d/c antibiotics after today
[2018-08-07] MEDS: Budesonide 0.5 mg/2 ml Inhal Susp UD IH SCH (21:15)
[2018-08-08] MEDS: Albuterol-Ipratrop 3 mg / 0.5 (3 ml) UD IH SCH ×4 (02:45→20:26)
[2018-08-08 05:25] LABS: PH,URINE 6.5 (4.7-8.0); URINE BILIRUBIN NEGATIVE (NEGATIVE); URINE BLOOD MODERATE (NEGATIVE); URINE GLUCOSE (UA) NEGATIVE (NEGATIVE); URINE LEUKOCYTE ESTERASE SMALL Leu/uL (NEGATIVE); URINE PROTEIN 30 mg/dL (<30 mg/dL); URINE UROBILINOGEN 0.2 E.U./dL (<1 E.U./dL)
[2018-08-08 05:31] LABS: URINE APPEARANCE SL CLOUDY (CLEAR); URINE COLOR YELLOW (YELLOW)
[2018-08-08 05:51] LABS: URINE BACTERIA FEW (NEG); URINE EPITHELIAL CELLS 0 - 2 /hpf (0-5)
[2018-08-08 07:25] LABS: BASO # 0.03 K/mm3 (0.0-2.0); BASO % 0.3 % (0.0-3.0); EOS # 0.5 (0.0-0.7); EOS % 4.3 % (1.5-5.0); GRAN # 9.14 (1.4-6.5); GRAN % 82.3 % (50.0-68.0); HEMOGLOBIN 11.9 g/dL (14.0-18.0); LYMPH # 0.6 (1.2-3.4); LYMPH % 5.6 % (22.0-35.0); MEAN CELL VOLUME 100.8 fl (80.0-105.0); MEAN CORPUSCULAR HEMOGLOBIN 32.3 pg (25.0-35.0); MEAN CORPUSCULAR HGB CONC 32.1 g/dl (31.0-37.0); MEAN PLATELET VOLUME 11.1 fl (7.0-11.0); MONO # 0.8 (0.1-0.6); MONO % 7.5 % (1.0-6.0); RBC 3.68 10^6/uL (3.5-6.1); RED CELL DISTRIBUTION WIDTH 15.4 % (11.5-14.5); WHITE BLOOD COUNT 11.1 10^3/uL (4.5-11.0)
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
[2018-08-08] MEDS ORDERED: Sod Polystyrene Sulf 15 gm/60 ml Susp PO ONE (07:52)
[2018-08-08] MEDS: Insulin Reg-LOW-Coverage SC SCH ×3 (08:21→17:35)
[2018-08-08] MEDS: Levothyroxine 100 MCG TAB PO SCH (08:22)
[2018-08-08] MEDS: Budesonide 0.5 mg/2 ml Inhal Susp UD IH SCH ×2 (08:48→20:26)
--- NOTE | 2018-08-08 10:59 | RAD ---
Date of service: 08/08/2018 HISTORY: wheezing, ronchi, r/o infiltrate COMPARISON: No prior. TECHNIQUE: Chest PA and lateral FINDINGS: LUNGS: Diminished airspace disease seen the right lateral base with trace residual. None is appreciated at the left. PLEURA: No significant pleural effusion identified. No pneumothorax apparent. CARDIOVASCULAR: No aortic atherosclerotic calcification present. Normal cardiac size. No pulmonary vascular congestion. OSSEOUS STRUCTURES: No significant abnormalities. VISUALIZED UPPER ABDOMEN: Normal. OTHER FINDINGS: None. IMPRESSION: Diminished airspace disease right lateral base with remaining lung east clear. No acute pulmonary vascular congestion bilaterally.
[2018-08-08] MEDS: cefTRIAXone 1 gm 1 GM/100 ML BAG IVPB SCH (11:05)
[2018-08-08] MEDS: POLYETHYLENE GLYCOL 3350 17 GM/Dose PACKET PO SCH (11:06)
--- NOTE | 2018-08-08 12:02 | PN ---
DATE: 08/08/2018 SUBJECTIVE: The patient appears very comfortable this morning. He is not short of breath at rest. PHYSICAL EXAMINATION: VITAL SIGNS: (Last noted in the computer): Temperature 97.8, pulse 73, respirations 18, blood pressure 105/50. Oxygen saturation on room air is 97%. HEENT: Normocephalic, atraumatic. NECK: No JVD. CARDIOVASCULAR: Systolic ejection murmur at the lower left sternal border. No S3 gallop. LUNGS: Improved breath sounds at the bases. Much less rhonchi. No wheezing this morning. EXTREMITIES: Positive for mild edema. No cyanosis. No clubbing. Calves are nontender to palpation. GI: Abdomen is soft, nontender and nondistended. Bowel sounds are positive. SKIN: No acute rash. NEUROLOGIC: Exam limited at the present time. IMPRESSION: 1. Probable urinary tract infection. 2. Chronic obstructive pulmonary disease. 3. Mild bronchospasm. 4. Chronic atrial fibrillation. 5. Renal insufficiency. PLAN: The patient appears very comfortable this morning. He is not short of breath at rest. He does state to feeling much better overall. On physical exam, there is significantly less bronchospasm noted. In addition, the oxygen saturation on room air is now 97%. I will continue with the current nebulizer treatments and inhaled steroids for now. I would continue with the antibiotic coverage as per Infectious Disease. Input by Dr. Spencer is noted. No temperature is noted. The leukocytosis is resolving. Clinical status of the patient is certainly improved - compared to his initial presentation. I would like to see the patient out of bed more often. I will discuss the above with the attending physician. Umair Kauffman MD JOYCE
[2018-08-08 13:59] VITALS: RESP 20; TEMP 97.9; O2SAT 94
[2018-08-08 16:37] LABS: CALCIUM 8.1 mg/dL (8.4-10.5)
[2018-08-08 17:40] VITALS: BP 132/56; PULSE 78
--- NOTE | 2018-08-08 23:30 | PN ---
DATE: 08/08/2018 SUBJECTIVE: The patient is in bed, in no acute distress, nontoxic. PHYSICAL EXAMINATION: VITAL SIGNS: Temperature is 98, blood pressure is 140/60, respiratory rate 20, heart rate of 82. HEENT: Examination is unremarkable. NECK: Supple. LUNGS: Have decreased breath sounds. HEART: Normal S1, S2. ABDOMEN: Soft, nontender. LABORATORY DATA: Laboratory examination reveals white count of 11,000, hemoglobin 11, platelets of 198. BUN of 34, creatinine of 2.8. Procalcitonin 0.11. Urinalysis is noted. Microbiology reveals the blood cultures are negative. Nares cultures are negative. Urine cultures are negative. ASSESSMENT AND PLAN: A 73-year-old male who was seen earlier today in room 574, bed 1, with the right lower lobe community-acquired pneumonia, with diabetes, hypertension, chronic obstructive pulmonary disease, on day #6 of Rocephin, complete five to seven days. The patient had a repeat chest x-ray. Currently, now off antibiotics and should have repeat imaging until resolution of infiltrates on imaging. We will follow with you. Teddy Hazel MD
--- NOTE | 2018-08-09 07:30 | PN ---
DATE: 08/08/2018 REASON FOR CONSULTATION: Cardiac evaluation, sinus tachycardia, history of atrial fibrillation, admitted with hypoglycemia. SUBJECTIVE: The patient denies any chest pain, shortness of breath, or any palpitation. Feels comfortable. This note is in addition to dictated by nurse practitioner. The patient's blood sugar , history of atrial fibrillation, on Eliquis, osteomyelitis. Last echo dated 10/12/2017, ejection 56%. EKG shows sinus tachycardia, possible right lower lobe pneumonia. RECOMMENDATIONS: Continue aggressive control of blood pressure. Continue Eliquis, continue hydralazine, continue Lopressor. Today, potassium is 5.6 secondary to acute kidney injury on chronic renal insufficiency. We will give Kayexalate 30 g. Avoid nephrotoxic medication. We will follow with you. Repeat SMA-7 in the morning. We will repeat the blood workup in the morning. Thank you Dr. Ramon for providing us the opportunity in taking care of the patient, . Josue Foster MD
--- NOTE | 2018-08-15 08:03 | PQF ---
PROVIDER RESPONSE TEXT: Clarification of degree of renal disease note. With a GFR ranging from 13 to 29, Mr. Scott would be Stage 4 CKD by NKF criteria. Jaz Ramon MD REVIEWER QUERY TEXT: Kidney Disease, Chronic CKD Stage Chronic Kidney Disease (CKD) is documented in the Medical Record. Please specify the disease stage ( includes probable or suspected) Such as: -- Chronic kidney disease Stage 1 -- Chronic kidney disease Stage 2 -- Chronic kidney disease Stage 3 -- Chronic kidney disease Stage 4 -- Chronic kidney disease Stage 5 -- Chronic kidney disease Stage 5, requiring dialysis -- End Stage Renal Disease -- Other, please specify Stages are defined by the [employer] as follows: CKD Stage I GFR >= 90 ml / min per 1.73 m2 and persistent albuminuria CKD Stage 2 GFR between 60 and 89 with persistent albuminuria CKD Stage 3 GFR between 30 and 59 CKD Stage 4 GFR between 15 and 29 CKD Stage 5 GFR between <15 or End Stage Renal Disease The patient's Clinical Indicators include: Medical record notes patient has hx renal insufficiency and CKD. Patient admitted with elevated BUN/creatinine which is continuing to rising. Please specify the stage of the CKD. Query created by: Emma Benoit on 08/06/2018 11:19 AM Electronically signed by: Dannie Ramon MD 08/15/2018 8:00 AM
--- NOTE | 2018-08-15 19:53 | PQF ---
PROVIDER RESPONSE TEXT: REVIEWER QUERY TEXT: Clarification of Clinical Diagnostic Findings Please clarify documentation or clinical relevance for the clinical / diagnostic findings or whether those are insignificant or unable to be further specified. The patient's Clinical Indicators include: Pneumonia is documented in many notes. Chest x-ray showed infiltrate with CT scan later in the admiss ion being negative. Patient also has history of pneumonia. Please clarify whether pneumonia was prese nt at all during this admission. Thank you. Query created by: Rosa Linares on 08/09/2018 1:15 PM Electronically signed by: Dannie Ramon MD 08/15/2018 7:50 PM
== END 2018-08-08 22:06 | DRG 637 ==
LOC: ED 10:19 → ERH 12:30 → 5RSO 14:15
PROVIDERS: ADMIT Internal Medicine; ATTEND Internal Medicine
DX: E11.649 Type 2 diabetes mellitus with hypoglycemia without coma (principal); J18.9 Pneumonia, unspecified organism; J44.0 Chronic obstructive pulmonary disease with (acute) lower respiratory infection; I13.0 Hypertensive heart and chronic kidney disease with heart failure and stage 1 through stage 4 chronic kidney disease, or unspecified chronic kidney disease; N39.0 Urinary tract infection, site not specified; E03.9 Hypothyroidism, unspecified; Z72.0 Tobacco use; I25.10 Atherosclerotic heart disease of native coronary artery without angina pectoris; N17.9 Acute kidney failure, unspecified; I48.0 Paroxysmal atrial fibrillation; Z79.01 Long term (current) use of anticoagulants; E11.22 Type 2 diabetes mellitus with diabetic chronic kidney disease; Z87.820 Personal history of traumatic brain injury; I48.2 Chronic atrial fibrillation; J98.01 Acute bronchospasm; N40.0 Benign prostatic hyperplasia without lower urinary tract symptoms; B96.4 Proteus (mirabilis) (morganii) as the cause of diseases classified elsewhere; I50.9 Heart failure, unspecified; K31.819 Angiodysplasia of stomach and duodenum without bleeding; L40.9 Psoriasis, unspecified; Z79.890 Hormone replacement therapy; Z87.01 Personal history of pneumonia (recurrent); N18.4 Chronic kidney disease, stage 4 (severe)

== ENCOUNTER 2018-10-10 23:34 | Inpatient (IN) | payer MEDICARE, OTHER ==
[2018-10-10 23:35] VITALS: PULSE 134
[2018-10-10 23:38] VITALS: BMI 27.1
--- NOTE | 2018-10-10 23:38 | ED PDOC ---
Arrival/HPI - General Historian: Patient EM Caveat: Respiratory Distress - Critical Care Critical Care Minutes: 30 minutes - History of Present Illness Narrative History of Present Illness (Text): 10/10/18 23:38 73 year old male, whose past medical history includes Afib on Eliqius, COPD, CHF, and hyperglycemia, presents to the emergency department via EMS complaining of shortness of breath. As per EMS, they found him in respiratory distress and states patient found hypoxic in the 80's. They tried a non-rebreather which was unsuccessful then CPAP placed bringing O2 stats from 80's to the 90's. Patient is unable to provide other information. HPI and ROS limited due to patient being in respiratory distress. PMD: Dannie Ramon Past Medical History - Provider Review Nursing Documentation Reviewed: Yes - Infectious Disease Hx of Infectious Diseases: None - Tetanus Immunization Tetanus Immunization: Unknown - Cardiac Hx Congestive Heart Failure: Yes Hx Hypertension: Yes - Pulmonary Hx Chronic Obstructive Pulmonary Disease (COPD): Yes - Neurological Hx Neurological Disorder: No - HEENT Hx HEENT Disorder: No - Renal Hx Renal Failure: Yes - Endocrine/Metabolic Hx Diabetes Mellitus Type 2: Yes Hx Hypothyroidism: Yes - Hematological/Oncological Hx Cancer: No - Integumentary Hx Psoriasis: Yes - Musculoskeletal/Rheumatological Hx Arthritis: Yes - Gastrointestinal Hx Gastrointestinal Disorders: No - Genitourinary/Gynecological Hx Genitourinary Disorders: Yes (URGENCY) - Psychiatric Hx Psychophysiologic Disorder: (unknown) Hx Depression: No Hx Emotional Abuse: No Hx Physical Abuse: No Hx Substance Use: No - Past Surgical History Past Surgical History: Unable to Obtain - Surgical History Hx Mastectomy: No - Anesthesia Hx Anesthesia: Yes Hx Anesthesia Reactions: No Hx Malignant Hyperthermia: No - Suicidal Assessment Feels Threatened In Home Enviroment: No Family/Social History - Physician Review Nursing Documentation Reviewed: Yes Family/Social History: No Known Family HX Smoking Status: Former Smoker Hx Alcohol Use: Yes (social drinking) Hx Substance Use: No Hx Substance Use Treatment: No Allergies/Home Meds Allergies/Adverse Reactions: Allergies No Known Allergies Allergy (Verified 12/18/17 17:36) PER [facility] NURSE Home Medications: Home Meds Medication Instructions Recorded Confirmed RX: Levothyroxine [Synthroid] 100 mcg PO DAILY 04/02/13 08/02/18 Apixaban [Eliquis] 2.5 mg PO BID 08/02/18 08/02/18 Gabapentin [Neurontin] 300 mg PO TID 08/02/18 08/02/18 tiZANidine [Zanaflex] 4 mg PO QID 08/02/18 08/02/18 RX: oxyCODONE [oxyCODONE Immediate 30 mg PO QID PRN 08/04/18 08/04/18 Release Tab] Review of Systems - Physician Review All systems were reviewed & negative as marked: Yes - Review of Systems Systems not reviewed;Unavailable: Respiratory Distress Respiratory: SOB Physical Exam Vital Signs Reviewed: Yes Temperature: Afebrile Blood Pressure: Normal Pulse: Regular Respiratory Rate: Normal Appearance: Positive for: Well-Appearing, Non-Toxic, Comfortable Pain Distress: None Mental Status: Positive for: Alert and Oriented X 3 - Systems Exam Head: Present: Atraumatic, Normocephalic Pupils: Present: PERRL Extroacular Muscles: Present: EOMI Conjunctiva: Present: Normal Mouth: Present: Moist Mucous Membranes Neck: Present: Other (Unable to ascertain JVD) Respiratory/Chest: Present: Respiratory Distress, Accessory Muscle Use, Decreased Breath Sounds, Rales (anterior lung field ) Cardiovascular: Present: Regular Rate and Rhythm, Normal S1, S2 Abdomen: Present: Distention, Other (soft). No: Tenderness Back: Present: Normal Inspection Upper Extremity: Present: Other (Ecchymosis to the upper extremity bilaterally) Neurological: Present: GCS=15 Skin: Present: Warm, Dry, Normal Color Psychiatric: Present: Alert, Oriented x 3 Medical Decision Making ED Course and Treatment: 10/10/18 23:38 Impression: 73 year old male presents for progressively worsening shortness of breath. Patient was found in respiratory distress by EMS hypoxic in the 80's with improvement with CPAP bringing O2 stats to the 90's. Differential Diagnosis included but are not limited to: CHF Exacerbation COPD Pneumonia Plan: --VBG --ABG -- Labs -- CXR -- Duoneb -- Blood Culture --Urine Culture -- Urinalysis -- BiPAP --Zosyn --Vancomycin --Dextrose --Insulin --Albuterol --Sodium bicarbonate -- Reassess and disposition Prior Visits: Notes and results from previous visits were reviewed. Progress Notes: 10/11/18 00:20 ABG shows respiratory acidosis with pH of 7.09. Labs reviewed with leukocytosis of 20.9, hyperkalemia of 5.5, and Creatinine of 3.3. Hyperkalemia protocol ordered. 10/11/18 00:[address] Jaz Ramon(PCP) who is aware and agrees with the plan. Notes patient had renal issues in the past. Accepts patient into his service. Will consult ICU team for evaluation. Dr. Delgado(house mortgage loan closer) made aware. 10/11/18 01:23 ICU team evaluates patient and states patient may be monitored on telemetry. ABG reviewed with evidence of metabolic acidosis. - Lab Interpretations Lab Results: 10/10/18 23:37 10/10/18 23:37 Lab Results 10/10/18 23:37: Sodium 137, Chloride 105, Potassium 5.2 H, Carbon Dioxide 19 L, Anion Gap 18, BUN 51 H, Creatinine 3.3 H, Est GFR ( Amer) 22, Est GFR ( Non-Af Amer) 18, Random Glucose 39 L* D, Calcium 9.5, Magnesium 2.0, Total Bilirubin 0.4, AST 45, ALT 14, Alkaline Phosphatase 102, Troponin I < 0.01, NT-Pro-B Natriuret Pep 1140 H, Total Protein 8.6 H, Albumin 4.7, Globulin 3.9, Albumin/Globulin Ratio 1.2 10/10/18 23:37: pO2 47, VBG pH 7.09 L*, VBG pCO2 61.0 H, VBG HCO3 18.5 L, VBG Total CO2 20.4 L, VBG O2 Sat (Calc) 82.1 H, VBG Base Excess -11.9 L, VBG Potassium 5.0, Sodium 137.0, Chloride 106.0, Glucose 38 L* D, Lactate 3.4 H, FiO2 21.0, Crit Value Called To Everardo sarabia rn ed, Crit Value Called By Tyler, Blood Gas Notified Time 15, Venous Blood Potassium 5.0 10/10/18 23:37: PT 17.8 H, INR 1.60, APTT 46.0 H 10/10/18 23:37: WBC 20.6 H D, RBC 3.93, Hgb 13.2 L, Hct 39.5 L, MCV 100.5, MCH 33.6, MCHC 33.4, RDW 14.1, Plt Count 246, MPV 11.9 H, Neut % (Auto) 81.0 H, Lymph % (Auto) 9.0 L, Morris % (Auto) 8.2 H, Eos % (Auto) 1.4 L, Baso % (Auto) 0.4, Lymph # (Auto) 1.9, Morris # (Auto) 1.7 H, Eos # (Auto) 0.3, Baso # (Auto) 0.08, Absolute Neuts (auto) 16.67 H I have reviewed the lab results: Yes - RAD Interpretation Narrative RAD Interpretations (Text): 10/11/18 00:30 CXR Impression: As read by me, hyperinflated, flattened diaphragm, no evidence of consolidation. Monitor Technician: ED Physician - EKG Interpretation EKG Interpretation (Text): 10/11/18 23:40 EKG shows NSR at [address] elevations, no peaked t-waves. Interpreted by me Interpreted by ED Physician: Yes Type: 12 lead EKG - Medication Orders Current Medication Orders: Albuterol/Ipratropium (Duoneb 3 Mg/0.5 Mg (3 Ml) Ud) 3 ml IH Q2H PRN PRN Reason: Shortness of Breath Albuterol/Ipratropium (Duoneb 3 Mg/0.5 Mg (3 Ml) Ud) 3 ml IH [id number] [facility] Last Admin: 10/13/18 08:08 Dose: 3 ml Apixaban (Eliquis) 2.5 mg PO BID GLORIA; Protocol Last Admin: 10/12/18 18:10 Dose: 2.5 mg Budesonide (Pulmicort Respules) 0.5 mg IH [id number] [facility] Last Admin: 10/13/18 08:08 Dose: 0.5 mg Dextrose (Dextrose 50% Inj) 0 ml IV STAT PRN; Protocol PRN Reason: Hypoglycemia Protocol Doxycycline Hyclate (Doryx) 100 mg PO Q12 [facility]; Protocol Stop: 10/21/18 22:01 Last Admin: 10/12/18 22:08 Dose: 100 mg Furosemide (Lasix) 40 mg IVP DAILY [facility] Last Admin: 10/11/18 11:14 Dose: 40 mg MAR Blood Pressure Document 10/11/18 11:14 JZA (Rec: 10/11/18 11:14 JZA [id number] Blood Pressure Blood Pressure (100/60-150/90 mm Hg) 113/56 IVP Administration Document 10/11/18 11:14 CELINA (Rec: 10/11/18 11:14 CELINA [id number] Charges for Administration # of IVP Administrations 1 Dextrose (Dextrose 5% In Water 1000 Ml) 1,000 mls @ 0 mls/hr IV .Q0M PRN; Protocol PRN Reason: Hypoglycemia Protocol Cefepime HCl (Maxipime 1gm) 1 gm in 100 mls @ 100 mls/hr IVPB Q24H GLORIA; Protocol Last Admin: 10/13/18 08:16 Dose: 100 mls/hr eMAR Start Stop Document 10/13/18 08:16 [facility] (Rec: 10/13/18 08:16 [facility]-[id number]) Intravenous Solution Start Date 10/13/18 Start Time 08:16 End Date 10/13/18 End time 08:16 Total Infusion Time 0 Insulin Human Regular (Humulin R Low) 0 units SC ACHS GLORIA; Protocol Last Admin: 10/13/18 08:16 Dose: 3 units MAR Blood Glucose Document 10/13/18 08:16 [facility] (Rec: 10/13/18 08:16 [id number] Blood Glucose Finger Stick Blood Glucose (70-120) 291 Subcutaneous Administrations Document 10/13/18 08:16 [facility] (Rec: 10/13/18 08:16 [facility]-[id number]) Injection Site MAR Injection Site Left Vastus Lateralis Charges for Administration # of Subcutaneous Administrations 1 Levothyroxine Sodium (Synthroid) 100 mcg PO 0600 [facility] Last Admin: 10/13/18 05:17 Dose: 100 mcg Methylprednisolone (Solu-Medrol) 30 mg IVP Q12 GLORIA Last Admin: 10/12/18 22:07 Dose: 30 mg IVP Administration Document 10/12/18 22:07 CDL (Rec: 10/12/18 22:08 CDL [id number] Charges for Administration # of IVP Administrations 1 Metoprolol Tartrate (Lopressor) 25 mg PO BID GLORIA Last Admin: 10/12/18 18:08 Dose: 25 mg MAR Pulse and Blood Pressure Document 10/12/18 18:08 [facility] (Rec: 10/12/18 18:09 [id number]) Pulse Pulse Rate (60-90 beats/min) 111 Blood Pressure Blood Pressure (100/60-150/90 mm Hg) 107/47 Pantoprazole Sodium (Protonix Ec Tab) 40 mg PO 0600 [facility] Last Admin: 10/13/18 05:17 Dose: 40 mg Tamsulosin HCl (Flomax) 0.4 mg PO DAILY [facility] Last Admin: 10/12/18 10:01 Dose: 0.4 mg Discontinued Medications Albuterol Sulfate (Albuterol 0.083% Inhal Lydia (2.5 Mg/3 Ml) Ud) 2.5 mg INH STAT STA Stop: 10/11/18 00:49 Last Admin: 10/11/18 01:24 Dose: 2.5 mg Albuterol/Ipratropium (Duoneb 3 Mg/0.5 Mg (3 Ml) Ud) 3 ml IH STAT STA Stop: 10/10/18 23:42 Last Admin: 10/11/18 00:00 Dose: 3 ml Albuterol/Ipratropium (Duoneb 3 Mg/0.5 Mg (3 Ml) Ud) 3 ml IH TIDRESP [facility] Last Admin: 10/11/18 08:13 Dose: 3 ml Dextrose (Dextrose 50% Inj) 50 ml IVP STAT STA Stop: 10/11/18 00:34 Last Admin: 10/11/18 00:35 Dose: 50 ml Comments: ARLYN 63 IVP Administration Document 10/11/18 00:35 IT (Rec: 10/11/18 01:24 IT [id number]) Charges for Administration # of IVP Administrations 1 Dextrose (Dextrose 50% Inj) 50 ml IVP STAT STA Stop: 10/11/18 00:54 Last Admin: 10/11/18 01:25 Dose: 50 ml IVP Administration Document 10/11/18 01:25 IT (Rec: 10/11/18 01:25 IT [id number]) Charges for Administration # of IVP Administrations 1 Dextrose (Dextrose 5% In Water) 50 ml IV ONCE ONE Stop: 10/11/18 06:32 Last Admin: 10/11/18 06:30 Dose: Not Given Non-Admin Reason: duplicate order Vancomycin HCl (Vancomycin 1gm) 1 gm in 250 mls @ 167 mls/hr IVPB STAT STA; Protocol Stop: 10/11/18 02:04 Last Admin: 10/11/18 03:20 Dose: 167 mls/hr eMAR Start Stop Document 10/11/18 03:20 ROBBK (Rec: 10/11/18 03:20 ROBBK [id number]) Intravenous Solution Start Date 10/11/18 Start Time 03:20 Piperacillin Sod/Tazobactam Sod (Zosyn 4.5 Gm In Ns 100ml) 4.5 gm in 100 mls @ 200 mls/hr IVPB STAT STA; Protocol Stop: 10/11/18 01:04 Last Admin: 10/11/18 01:24 Dose: 200 mls/hr eMAR Start Stop Document 10/11/18 01:24 IT (Rec: 10/11/18 01:24 IT [id number]) Intravenous Solution Start Date 10/11/18 Start Time 01:24 Sodium Chloride (Sodium Chloride 0.9%) 1,000 mls @ 50 mls/hr IV .Q20H GLORIA Last Admin: 10/11/18 05:50 Dose: 50 mls/hr eMAR Start Stop Document 10/11/18 05:50 ROBBK (Rec: 10/11/18 05:53 ROBBK [id number]) Intravenous Solution Start Date 10/11/18 Start Time 05:53 Dextrose/Sodium Chloride (Dextrose 5%/0.9% Ns 1000 Ml) 1,000 mls @ 50 mls/hr IV .Q20H GLORIA Last Admin: 10/11/18 07:24 Dose: 50 mls/hr eMAR Start Stop Document 10/11/18 07:24 ROBBK (Rec: 10/11/18 07:24 ROBBK [id number]) Intravenous Solution Start Date 10/11/18 Start Time 07:24 Doxycycline Hyclate 100 mg/ (Sodium Chloride) 100 mls @ 100 mls/hr IVPB Q12 GLORIA; Protocol Last Admin: 10/12/18 10:03 Dose: 100 mls/hr eMAR Start Stop Document 10/12/18 10:03 CRIMC (Rec: 10/12/18 10:03 CRIMC [id number]) Intravenous Solution Start Date 10/12/18 Start Time 10:03 End Date 10/12/18 End time 10:03 Total Infusion Time 0 Insulin Human Regular (Humulin R) 10 units SC ONCE ONE Stop: 10/11/18 00:53 Last Admin: 10/11/18 01:24 Dose: 10 u Subcutaneous Administrations Document 10/11/18 01:24 IT (Rec: 10/11/18 01:24 IT [id number]) Charges for Administration # of Subcutaneous Administrations 1 Insulin Human Regular (Humulin R) 10 units SC STAT STA Stop: 10/11/18 16:53 Last Admin: 10/11/18 17:08 Dose: 10 units MAR Blood Glucose Document 10/11/18 17:08 JZA (Rec: 10/11/18 17:08 JZA [id number]) Blood Glucose Finger Stick Blood Glucose (70-120) 500 Subcutaneous Administrations Document 10/11/18 17:08 JZA (Rec: 10/11/18 17:08 JZA [id number]) Injection Site MAR Injection Site Left Arm Charges for Administration # of Subcutaneous Administrations 1 Insulin Human Regular (Humulin R) 10 units SC STAT STA Stop: 10/11/18 21:29 Last Admin: 10/11/18 22:17 Dose: 10 units MAR Blood Glucose Document 10/11/18 22:17 CDL (Rec: 10/11/18 22:18 CDL [id number]) Blood Glucose Finger Stick Blood Glucose (70-120) 500 Subcutaneous Administrations Document 10/11/18 22:17 CDL (Rec: 10/11/18 22:18 CDL [id number]) Injection Site MAR Injection Site Right Abdomen Charges for Administration # of Subcutaneous Administrations 1 Methylprednisolone (Solu-Medrol) 40 mg IVP Q12 GLORIA Last Admin: 10/11/18 22:19 Dose: 40 mg IVP Administration Document 10/11/18 22:19 CDL (Rec: 10/11/18 22:19 CDL [id number]) Charges for Administration # of IVP Administrations 1 Sodium Bicarbonate (Sodium Bicarbonate 8.4% (50 Meq) Syringe) 50 meq IVP ONCE ONE Stop: 10/11/18 00:54 Last Admin: 10/11/18 01:25 Dose: 50 meq IVP Administration Document 10/11/18 01:25 IT (Rec: 10/11/18 01:25 IT [id number]) Charges for Administration # of IVP Administrations 1 Sodium Polystyrene Sulfonate (Kayexalate) 15 gm PO ONCE ONE Stop: 10/11/18 06:02 Last Admin: 10/11/18 07:23 Dose: 15 gm - Scribe Statement The provider has reviewed the documentation as recorded by the Don Andrew Provider Don Attestation: All medical record entries made by the Don were at my direction and personally dictated by me. I have reviewed the chart and agree that the record accurately reflects my personal performance of the history, physical exam, medical decision making, and the department course for this patient. I have also personally directed, reviewed, and agree with the discharge instructions and disposition. Disposition/Present on Arrival - Present on Arrival Any Indicators Present on Arrival: No History of DVT/PE: No History of Uncontrolled Diabetes: No Urinary Catheter: No History Surgical Site Infection Following: None - Disposition Have Diagnosis and Disposition been Completed?: Yes Diagnosis: Respiratory distress Disposition: HOSPITALIZED Disposition Time: : Patient Plan: Admission, Telemetry Condition: FAIR
[2018-10-10] MEDS ORDERED: Albuterol-Ipratrop 3 mg / 0.5 (3 ml) UD IH STA (23:41)
[2018-10-11 00:13] LABS: BASO # 0.08 K/mm3 (0.0-2.0); BASO % 0.4 % (0.0-3.0); EOS # 0.3 (0.0-0.7); EOS % 1.4 % (1.5-5.0); HEMOGLOBIN 13.2 g/dL (14.0-18.0); LYMPH # 1.9 (1.2-3.4); MEAN CELL VOLUME 100.5 fl (80.0-105.0); MEAN CORPUSCULAR HEMOGLOBIN 33.6 pg (25.0-35.0); MEAN CORPUSCULAR HGB CONC 33.4 g/dl (31.0-37.0); MEAN PLATELET VOLUME 11.9 fl (7.0-11.0); MONO # 1.7 (0.1-0.6); MONO % 8.2 % (1.0-6.0); RBC 3.93 10^6/uL (3.5-6.1); RED CELL DISTRIBUTION WIDTH 14.1 % (11.5-14.5); WHITE BLOOD COUNT 20.6 10^3/uL (4.5-11.0)
[2018-10-11 00:16] LABS: VENOUS BLOOD GAS BASE EXCESS -11.9 mmol/L (0.0-2.0); VENOUS BLOOD GAS PO2 47 mm/Hg (30-55); VENOUS BLOOD PH 7.09 (7.32-7.43)
[2018-10-11 00:25] LABS: INR 1.6; PROTHROMBIN TIME 17.8 SECONDS (9.4-12.5)
[2018-10-11 00:30] LABS: ALB/GLOB RATIO 1.2 (1.1-1.8); ALBUMIN 4.7 g/dL (3.0-4.8); ALT/SGPT 14 U/L (7-56); AST/SGOT 45 U/L (17-59); BLOOD UREA NITROGEN 51 mg/dL (7-21); CALCIUM 9.5 mg/dL (8.4-10.5); GFR NON-AFRICAN AMERICAN 18
[2018-10-11] MEDS ORDERED: Dextrose 50% SYRINGE Inj (50 ml) ONE ×2 (00:32→06:26)
[2018-10-11] MEDS ORDERED: Dextrose 50% SYRINGE Inj (50 ml) IVP STA ×2 (00:33→00:53)
[2018-10-11] MEDS ORDERED: Piperacill/Tazo 4.5gm in NS 4.5 GM/100 ML BAG IVPB STA (00:35)
[2018-10-11] MEDS ORDERED: Vancomycin 1gm in NS 250ml 1 GM/250 ML BAG IVPB STA (00:35)
[2018-10-11 00:37] LABS: B-TYPE NATRIURETIC PEPTIDE 1140 pg/mL (0-450); TROPONIN I < 0.01 ng/mL
[2018-10-11] MEDS ORDERED: Albuterol 0.083% Inhal Sol (2.5 mg/3 mL) UD INH STA (00:48)
[2018-10-11] MEDS ORDERED: Insulin Regular 1 UNITS/0.01 ML ML SC ONE (00:52)
[2018-10-11] MEDS ORDERED: Sodium Bicarbonate (8.4%) 50 Meq Syringe IVP ONE (00:53)
[2018-10-11 01:19] LABS: ARTERIAL BLOOD GAS HCO3 14.5 mmol/L (21-28); ARTERIAL BLOOD GAS HEMOGLOBIN 12.1 g/dL (11.7-17.4); ARTERIAL BLOOD GAS O2 CAPACITY 17.1 mL/dl (16-24); ARTERIAL BLOOD GAS O2 SAT 99.7 % (95-98); ARTERIAL BLOOD GAS PCO2 33 mm/Hg (35-45); ARTERIAL BLOOD GAS PH 7.25 (7.35-7.45); ARTERIAL BLOOD GAS TCO2 15.5 mmol.L (22-28)
[2018-10-11 03:44] LABS: VENOUS BLOOD GAS BASE EXCESS -7.9 mmol/L (0.0-2.0); VENOUS BLOOD GAS PO2 17 mm/Hg (30-55); VENOUS BLOOD PH 7.23 (7.32-7.43)
[2018-10-11] MEDS ORDERED: Albuterol-Ipratrop 3 mg / 0.5 (3 ml) UD IH PRN (04:26)
[2018-10-11] MEDS ORDERED: Sodium Chloride 0.9% 1,000 ML IV SCH (05:15)
[2018-10-11] MEDS: Levothyroxine 100 MCG TAB PO SCH (05:49)
[2018-10-11] MEDS: Pantoprazole 40 mg EC Tab PO SCH (05:49)
[2018-10-11] MEDS ORDERED: Pantoprazole 20 mg EC Tab PO SCH (06:00)
[2018-10-11 06:07] LABS: ARTERIAL BLOOD GAS HCO3 16.3 mmol/L (21-28); ARTERIAL BLOOD GAS O2 SAT 96.5 % (95-98); ARTERIAL BLOOD GAS PCO2 31 mm/Hg (35-45); ARTERIAL BLOOD GAS PH 7.33 (7.35-7.45); ARTERIAL BLOOD GAS TCO2 17.3 mmol.L (22-28)
--- NOTE | 2018-10-11 06:12 | CP.PCM.CON ---
History of Present Illness - History of Present Illness History of Present Illness: Jose Antonio Camacho, PGY1 ICU Consult Note for Dr. Delgado cc: shortness of breath x1 day duration Patient is a 73 year old male with PMHx Afib on Eliqius, COPD, CHF, and DM, Renal Insufficiency, Hypothyroidism, Psoriasis presents to the emergency department via EMS complaining of shortness of breath for one day duration. As per EMS, patient was found in respiratory distress and states patient found hypoxic in the 80's. EMS tried a non-rebreather which was unsuccessful then CPAP was placed bringing O2 stats from 80's to the 90's. In the ED, Vitals: Temp 97.9, HR 67, BP 120/59, RR 19, 100% (on bipap). Patient was evaluated for possible ICU consult. In the ED, patient mentioned that he was short of breath for 1 day in duration. However, since arriving to the ED he feels better. He mentions that 2 weeks ago he was hospitalized for PNA at another facility in which he went to the ICU and was intubated for about 10 days in duration. He was discharged from the facility on PO antibiotics. Currently he denies fever, chills, headache, nausea, vomiting, diarrhea, chest pain, bowel/bladder changes. A full 12 point ROS was conducted and unremarkable except as stated above. PMD: Dannie Ramon PMHx: Afib on Eliqius, COPD, CHF, and DM, Renal Insufficiency, Hypothyroidism, Psoriasis PSHx: none Meds: see MAR Allergies: NKDA SocialHx: Lives with daughter. No EtOH use. Former smoker - smoked 2 PPD at age 17 for 2 years. No recreational drug use. FamHx: non-contributory Review of Systems - Review of Systems All systems: reviewed and no additional remarkable complaints except (as per HPI.) Past Patient History - Infectious Disease Hx of Infectious Diseases: None - Tetanus Immunizations Tetanus Immunization: Unknown - Past Social History Smoking Status: Unknown If Ever Smoked - CARDIAC Hx Cardiac Disorders: Yes Hx Angina: No Hx Cardia Arrhythmia: No Hx Circulatory Problems: No Hx Congestive Heart Failure: Yes Hx Heart Murmur: No Hx Heart Transplant: No Hx Hypercholesterolemia: Yes Hx Hypertension: Yes Hx Internal Defibrillator: No Hx Mitral Valve Prolapse: No Hx Pacemaker: No Hx Peripheral Edema: No Hx Peripheral Vascular Disease: No - PULMONARY Hx Respiratory Disorders: Yes Hx Asthma: No Hx Bronchitis: Yes Hx Chronic Obstructive Pulmonary Disease (COPD): Yes Hx Emphysema: No Hx Pneumonia: Yes Hx Respiratory Aspiration: No Hx Respiratory Tract Infection: No Hx Sleep Apnea: No Hx Tuberculosis: No - NEUROLOGICAL Hx Neurological Disorder: Yes (traumatic brain injury) Hx Alzheimer's Disease: No HX Cerebrovascular Accident: No Hx Dementia: No Hx Dizziness: No Hx Meningitis: No Hx Migraine: No Hx Parkinson's Disease: No Hx Seizures: No Hx Transient Ischemic Attacks (TIA): No - HEENT Hx HEENT Problems: No Hx Blind: No Hx Cataracts: No Hx Deafness: No Hx Difficulty Chewing: No Hx Epistaxis: No Hx Glaucoma: No Hx Macular Degeneration: No - RENAL Hx Chronic Kidney Disease: No Hx Dialysis: No Hx Kidney Stones: No Hx Neurogenic Bladder: No Hx Pyelonephritis: No Hx Renal (Kidney) Cancer: No Hx Renal Failure: No - ENDOCRINE/METABOLIC Hx Endocrine Disorders: Yes Hx Adrenal Cancer: No Hx Diabetes Insipidus: No Hx Diabetes Mellitus Type 1: No Hx Diabetes Mellitus Type 2: Yes Hx Hyperthyroidism: No Hx Hypothyroidism: Yes Hx Systemic Lupus Erythematosus: No - HEMATOLOGICAL/ONCOLOGICAL Hx Blood Disorders: No Hx AIDS: No Hx Anemia: No Hx Cancer: No Hx Chemotherapy: No Hx Cirrhosis: No Hx Hemophilia: No Hx Hepatitis A: No Hx Hepatitis B: No Hx Hepatitis C: No Hx Human Immunodeficiency Virus (HIV): No Hx Metastesis: No Hx Shingles: No Hx Sickle Cell Disease: No Hx Unexplained Bleeding: No - INTEGUMENTARY Hx Dermatological Problems: No Hx Basil Cell: No Hx Eczema: No Hx Melanoma: No Hx Psoriasis: No Hx Squamous Cell: No - MUSCULOSKELETAL/RHEUMATOLOGICAL Hx Musculoskeletal Disorders: Yes Hx Arthritis: Yes Hx Back Pain: No Hx Degenerative Joint Disease: No Hx Falls: Yes Hx Fractures: No Hx Gout: No Hx Herniated Disk: No Hx Myasthenia Gravis: No Hx Osteoarthritis: No Hx Osteomyelitis: No Hx Osteoporosis: No Hx Rhabdomyolysis: No Hx Spinal Stenosis: No Hx Unsteady Gait: Yes (uses walker at home) - GASTROINTESTINAL Hx Gastrointestinal Disorders: No Hx Colostomy: No Hx Crohn's Disease: No Hx Diverticulitis: No Hx Gall Bladder Disease: No Hx Gastroesophageal Reflux: No Hx Ileostomy: No Hx Liver Failure: No Hx Pancreatitis: No HX Swallowing Problems: No Hx Ulcer: No - GENITOURINARY/GYNECOLOGICAL Hx Genitourinary Disorders: Yes Hx Hematuria: No Hx Incontinence: Yes Hx Prostate Problems: No Hx Sexually Transmitted Disorders: No Hx Urinary Tract Infection: No - PSYCHIATRIC Hx Psychophysiologic Disorder: No Hx Anxiety: No Hx Bipolar Disorder: No Hx Depression: No Hx Emotional Abuse: No Hx Hallucinations: No Hx Panic Symptoms: No Hx Paranoia: No Hx Post Traumatic Stress Disorder: No Hx Psychosis: No Hx Physical Abuse: No Hx Schizophrenia: No Hx Sexual Abuse: No Hx Substance Use: No - SURGICAL HISTORY Hx Surgeries: Yes Hx Amputation: No Hx Appendectomy: No Hx Cardiac Catheterization: No Hx Cholecystectomy: No Hx Coronary Stent: No Hx Gastric Bypass Surgery: No Hx Hysterectomy: No Hx Joint Replacement: No Hx Kidney Transplant: No Hx Liver Transplant: No Hx Mastectomy: No Hx Musculoskeletal Surgery: No Hx Open Heart Surgery: No Hx Orthopedic Surgery: No Hx Splenectomy: No Hx Valve Replacement: No - ANESTHESIA Hx Anesthesia: Yes Hx Anesthesia Reactions: No Hx Malignant Hyperthermia: No Meds Allergies/Adverse Reactions: Allergies Allergy/AdvReac Type Severity Reaction Status Date / Time No Known Allergies Allergy Verified 12/18/17 17:36 - Medications Medications: Current Medications Albuterol/Ipratropium (Duoneb 3 Mg/0.5 Mg (3 Ml) Ud) 3 ml IH TIDRESP [facility] Albuterol/Ipratropium (Duoneb 3 Mg/0.5 Mg (3 Ml) Ud) 3 ml IH Q2H PRN PRN Reason: Shortness of Breath Apixaban (Eliquis) 2.5 mg PO BID [facility]; Protocol Budesonide (Pulmicort Respules) 0.5 mg IH [id number] [facility] Sodium Chloride (Sodium Chloride 0.9%) 1,000 mls @ 50 mls/hr IV .Q20H [facility] Last Admin: 10/11/18 05:50 Dose: 50 mls/hr Insulin Human Regular (Humulin R Low) 0 units SC ACHS [facility]; Protocol Levothyroxine Sodium (Synthroid) 100 mcg PO 0600 [facility] Last Admin: 10/11/18 05:49 Dose: 100 mcg Methylprednisolone (Solu-Medrol) 40 mg IVP DAILY [facility] Metoprolol Tartrate (Lopressor) 25 mg PO BID [facility] Pantoprazole Sodium (Protonix Ec Tab) 40 mg PO 0600 [facility] Last Admin: 10/11/18 05:49 Dose: 40 mg Tamsulosin HCl (Flomax) 0.4 mg PO DAILY [facility] Physical Exam - Constitutional Appears: No Acute Distress - Head Exam Head Exam: ATRAUMATIC, NORMAL INSPECTION, NORMOCEPHALIC - Eye Exam Eye Exam: EOMI, Normal appearance Pupil Exam: PERRL - ENT Exam ENT Exam: Mucous Membranes Moist Additional comments: BiPAP in place. - Neck Exam Neck exam: Positive for: Normal Inspection - Respiratory Exam Respiratory Exam: Clear to Auscultation Bilateral. absent: Accessory Muscle Use, Chest Wall Tenderness, Rales, Rhonchi, Wheezes, Respiratory Distress - Cardiovascular Exam Cardiovascular Exam: RRR, +S1, +S2 - GI/Abdominal Exam GI & Abdominal Exam: Normal Bowel Sounds, Soft. absent: Bruit, Distended, Firm, Guarding, Pulsatile Mass, Rebound, Rigid, Tenderness - Extremities Exam Extremities exam: Positive for: full ROM, normal capillary refill, normal inspection, pedal pulses present. Negative for: calf tenderness, joint swelling, pedal edema, tenderness - Neurological Exam Neurological exam: Alert, CN II-XII Intact, Oriented x3 - Psychiatric Exam Psychiatric exam: Normal Affect, Normal Mood - Skin Skin Exam: Dry, Intact, Normal Color, Warm Results - Vital Signs Recent Vital Signs: Last Vital Signs Temp 97.6 F 10/11/18 02:52 Pulse 63 10/11/18 05:04 Resp 18 10/11/18 02:52 BP 115/61 10/11/18 02:52 Pulse Ox 100 10/11/18 02:52 - Labs Result Diagrams: 10/10/18 23:37 10/10/18 23:37 Labs: Laboratory Results - last 24 hr 10/10/18 10/10/18 10/10/18 23:37 23:37 23:37 WBC 20.6 H D RBC 3.93 Hgb 13.2 L Hct 39.5 L MCV 100.5 MCH 33.6 MCHC 33.4 RDW 14.1 Plt Count 246 MPV 11.9 H Neut % (Auto) 81.0 H Lymph % (Auto) 9.[address] % (Auto) 8.2 H Eos % (Auto) 1.4 L Baso % (Auto) 0.4 Lymph # (Auto) 1.9 [place] # (Auto) 1.7 H Eos # (Auto) 0.3 Baso # (Auto) 0.08 Absolute Neuts (auto) 16.67 H PT 17.8 H INR 1.60 APTT 46.0 H pCO2 pO2 47 HCO3 ABG pH ABG Total CO2 ABG O2 Saturation ABG O2 Content ABG Base Excess ABG Hemoglobin ABG Carboxyhemoglobin POC ABG HHb (Measured) ABG Methemoglobin ABG O2 Capacity ABG Potassium VBG pH 7.09 L* VBG pCO2 61.0 H VBG HCO3 18.5 L VBG Total CO2 20.4 L VBG O2 Sat (Calc) 82.1 H VBG Base Excess -11.9 L VBG Potassium 5.0 Hgb O2 Saturation Sodium 137.0 Chloride 106.0 Glucose 38 L* D Lactate 3.4 H FiO2 21.0 Crit Value Called To Everardo sarabia rn ed Crit Value Called By Tyler Blood Gas Notified Time 15 Potassium Carbon Dioxide Anion Gap BUN Creatinine Est GFR ( Amer) Est GFR (Non-Af Amer) POC Glucose (mg/dL) Random Glucose Calcium Magnesium Total Bilirubin AST ALT Alkaline Phosphatase Troponin I NT-Pro-B Natriuret Pep Total Protein Albumin Globulin Albumin/Globulin Ratio Arterial Blood Potassium Venous Blood Potassium 5.0 10/10/18 10/11/18 10/11/18 23:37 01:00 01:13 WBC RBC Hgb Hct MCV MCH MCHC RDW Plt Count MPV Neut % (Auto) Lymph % (Auto) [place] % (Auto) Eos % (Auto) Baso % (Auto) Lymph # (Auto) [place] # (Auto) Eos # (Auto) Baso # (Auto) Absolute Neuts (auto) PT INR APTT pCO2 33 L pO2 215.0 H HCO3 14.5 L ABG pH 7.25 L ABG Total CO2 15.5 L ABG O2 Saturation 99.7 H ABG O2 Content 17.0 ABG Base Excess -11.7 L ABG Hemoglobin 12.1 ABG Carboxyhemoglobin 1.8 H POC ABG HHb (Measured) 0.3 ABG Methemoglobin 0.9 ABG O2 Capacity 17.1 ABG Potassium VBG pH VBG pCO2 VBG HCO3 VBG Total CO2 VBG O2 Sat (Calc) VBG Base Excess VBG Potassium Hgb O2 Saturation 97.1 Sodium 137 Chloride 105 Glucose Lactate FiO2 60.0 Crit Value Called To Crit Value Called By Blood Gas Notified Time Potassium 5.2 H Carbon Dioxide 19 L Anion Gap 18 BUN 51 H Creatinine 3.3 H Est GFR ( Amer) 22 Est GFR (Non-Af Amer) 18 POC Glucose (mg/dL) 145 H Random Glucose 39 L* D Calcium 9.5 Magnesium 2.0 Total Bilirubin 0.4 AST 45 ALT 14 Alkaline Phosphatase 102 Troponin I < 0.01 NT-Pro-B Natriuret Pep 1140 H Total Protein 8.6 H Albumin 4.7 Globulin 3.9 Albumin/Globulin Ratio 1.2 Arterial Blood Potassium Venous Blood Potassium 10/11/18 10/11/18 03:30 05:50 WBC RBC Hgb Hct MCV MCH MCHC RDW Plt Count MPV Neut % (Auto) Lymph % (Auto) [place] % (Auto) Eos % (Auto) Baso % (Auto) Lymph # (Auto) [place] # (Auto) Eos # (Auto) Baso # (Auto) Absolute Neuts (auto) PT INR APTT pCO2 31 L pO2 17 L 67.0 L HCO3 16.3 L ABG pH 7.33 L ABG Total CO2 17.3 L ABG O2 Saturation 96.5 ABG O2 Content ABG Base Excess -8.4 L ABG Hemoglobin ABG Carboxyhemoglobin POC ABG HHb (Measured) ABG Methemoglobin ABG O2 Capacity ABG Potassium 4.1 VBG pH 7.23 L VBG pCO2 47.0 VBG HCO3 19.7 L VBG Total CO2 21.1 L VBG O2 Sat (Calc) 32.4 L VBG Base Excess -7.9 L VBG Potassium 4.4 Hgb O2 Saturation Sodium 136.0 138.0 Chloride 105.0 112.0 H Glucose 119 H 26 L* D Lactate 2.9 H 1.6 FiO2 21.0 21.0 Crit Value Called To Shelley greene rn dickson Darden Crit Value Called By Tyler Rs Blood Gas Notified Time [id number] Potassium Carbon Dioxide Anion Gap BUN Creatinine Est GFR ( Amer) Est GFR (Non-Af Amer) POC Glucose (mg/dL) Random Glucose Calcium Magnesium Total Bilirubin AST ALT Alkaline Phosphatase Troponin I NT-Pro-B Natriuret Pep Total Protein Albumin Globulin Albumin/Globulin Ratio Arterial Blood Potassium 4.1 Venous Blood Potassium 4.4 Assessment & Plan - Assessment and Plan (Free Text) Assessment: Patient is a 73 year old male with PMHx Afib on Eliqius, COPD, CHF, and DM, Renal Insufficiency, Hypothyroidism, Psoriasis presents to the emergency department via EMS complaining of shortness of breath for one day duration. Patient has Non-anion Gap Metabolic acidosis possibly 2/2 renal tubular acidosi s. Patient was stabilized. Does not warrant admission to ICU. Plan: ICU evaluated patient for shortness of breath. Patient likely has nonanion gap metabolic acidosis possibly 2/2 Renal Tubular Acidosis. Patient was on BiPAP in the ED. ABG was done that shows that patient was not in any respiratory distress. Patient was also hypoglycemic in which sugars were controlled a ppropriately. Patient does not meet ICU criteria admission. Case was discussed and reviewed with Attending Physician, Dr. Delgado.
[2018-10-11] MEDS ORDERED: Dextrose 50% SYRINGE Inj (50 ml) IV PRN (06:30)
[2018-10-11] MEDS ORDERED: Dextrose 5%/0.9% NS 1,000 ML IV SCH (06:30)
[2018-10-11 07:13] LABS: PH,URINE 5.5 (4.7-8.0); URINE BILIRUBIN NEGATIVE (NEGATIVE); URINE BLOOD SMALL (NEGATIVE); URINE GLUCOSE (UA) 100 mg/dL (NEGATIVE); URINE LEUKOCYTE ESTERASE TRACE Leu/uL (NEGATIVE); URINE PROTEIN NEGATIVE mg/dL (<30 mg/dL); URINE UROBILINOGEN 0.2 E.U./dL (<1 E.U./dL)
[2018-10-11 07:25] LABS: URINE APPEARANCE SLIGHT-CLOUDY (CLEAR); URINE COLOR LIGHT YELLOW (YELLOW)
[2018-10-11 07:34] LABS: URINE BACTERIA MANY /hpf
[2018-10-11] MEDS: Insulin Reg-LOW-Coverage SC SCH ×4 (07:43→22:00)
[2018-10-11 07:50] LABS: BASO # 0.04 K/mm3 (0.0-2.0); BASO % 0.2 % (0.0-3.0); EOS # 0.4 (0.0-0.7); EOS % 2.3 % (1.5-5.0); HEMOGLOBIN 12.5 g/dL (14.0-18.0); LYMPH # 1.4 (1.2-3.4); LYMPH % 8.5 % (22.0-35.0); MEAN CELL VOLUME 99.5 fl (80.0-105.0); MEAN CORPUSCULAR HEMOGLOBIN 32.9 pg (25.0-35.0); MEAN CORPUSCULAR HGB CONC 33.1 g/dl (31.0-37.0); MEAN PLATELET VOLUME 11.9 fl (7.0-11.0); MONO # 1.6 (0.1-0.6); MONO % 9.6 % (1.0-6.0); RBC 3.8 10^6/uL (3.5-6.1); RED CELL DISTRIBUTION WIDTH 14.1 % (11.5-14.5); WHITE BLOOD COUNT 16.2 10^3/uL (4.5-11.0)
[2018-10-11] MEDS ORDERED: Albuterol-Ipratrop 3 mg / 0.5 (3 ml) UD IH SCH (08:00)
[2018-10-11] MEDS: Budesonide 0.5 mg/2 ml Inhal Susp UD IH SCH ×2 (08:13→21:45)
[2018-10-11 08:22] LABS: ALB/GLOB RATIO 1.1 (1.1-1.8); ALBUMIN 4.2 g/dL (3.0-4.8); ALT/SGPT 18 U/L (7-56); AST/SGOT 38 U/L (17-59); BLOOD UREA NITROGEN 52 mg/dL (7-21); GFR NON-AFRICAN AMERICAN 21
[2018-10-11 08:26] LABS: CK-MB 4.8 ng/mL (0.0-3.6)
[2018-10-11] MEDS: Cefepime 1gm in NS 100ml 1 GM/100 ML BAG IVPB SCH (09:46)
--- NOTE | 2018-10-11 09:47 | RAD ---
Date of service: 10/10/2018 HISTORY: sob COMPARISON: 08/08/2018 FINDINGS: LUNGS: No active pulmonary disease. PLEURA: No significant pleural effusion identified, no pneumothorax apparent. CARDIOVASCULAR: No aortic atherosclerotic calcification present. Normal cardiac size. No pulmonary vascular congestion. OSSEOUS STRUCTURES: No significant abnormalities. VISUALIZED UPPER ABDOMEN: Normal. OTHER FINDINGS: None. IMPRESSION: No active disease.
[2018-10-11] MEDS: MethylPREDNISolone 40 mg Vial IVP SCH ×2 (09:50→22:19)
[2018-10-11] MEDS ORDERED: MethylPREDNISolone 40 mg Vial IVP SCH (10:00)
--- NOTE | 2018-10-11 11:44 | CP.PCM.CON ---
<Charlie Suarez - Last Filed: 10/11/18 13:29> History of Present Illness - History of Present Illness History of Present Illness: ID Consult Note 73 year old female with Afib on Eliqius, COPD, CHF, and DM, Renal Insufficiency, Hypothyroidism, Psoriasis presents to the hospital for low glucose levels. Patient states in the ED he was found to have labored breathing and be in respiratory distress. Patient was placed on BIPAP which saw improvement. Patient was recently admitted to the hospital for pneumonia and was intubated during this time. Currently he denies fever, chills, headache, nausea, vomiting, diarrhea, chest pain, numbness, tingling. Medical Hx: Afib, COPD, CHF, and DM, Renal Insufficiency, Hypothyroidism, Psoriasis Surgical Hx: None Medications:Reviewed as per MAR Allergies: NKDA Social Hx: Former smoker, denies alcohol or illicit drug use Review of Systems - Review of Systems Review of Systems: 12 point ROS as per HPI, otherwise negative Past Patient History - Infectious Disease Hx of Infectious Diseases: None - Tetanus Immunizations Tetanus Immunization: Unknown - Past Social History Smoking Status: Unknown If Ever Smoked - CARDIAC Hx Cardiac Disorders: Yes Hx Angina: No Hx Cardia Arrhythmia: No Hx Circulatory Problems: No Hx Congestive Heart Failure: Yes Hx Heart Murmur: No Hx Heart Transplant: No Hx Hypercholesterolemia: Yes Hx Hypertension: Yes Hx Internal Defibrillator: No Hx Mitral Valve Prolapse: No Hx Pacemaker: No Hx Peripheral Edema: No Hx Peripheral Vascular Disease: No - PULMONARY Hx Respiratory Disorders: Yes Hx Asthma: No Hx Bronchitis: Yes Hx Chronic Obstructive Pulmonary Disease (COPD): Yes Hx Emphysema: No Hx Pneumonia: Yes Hx Respiratory Aspiration: No Hx Respiratory Tract Infection: No Hx Sleep Apnea: No Hx Tuberculosis: No - NEUROLOGICAL Hx Neurological Disorder: Yes (traumatic brain injury) Hx Alzheimer's Disease: No HX Cerebrovascular Accident: No Hx Dementia: No Hx Dizziness: No Hx Meningitis: No Hx Migraine: No Hx Parkinson's Disease: No Hx Seizures: No Hx Transient Ischemic Attacks (TIA): No - HEENT Hx HEENT Problems: No Hx Blind: No Hx Cataracts: No Hx Deafness: No Hx Difficulty Chewing: No Hx Epistaxis: No Hx Glaucoma: No Hx Macular Degeneration: No - RENAL Hx Chronic Kidney Disease: No Hx Dialysis: No Hx Kidney Stones: No Hx Neurogenic Bladder: No Hx Pyelonephritis: No Hx Renal (Kidney) Cancer: No Hx Renal Failure: No - ENDOCRINE/METABOLIC Hx Endocrine Disorders: Yes Hx Adrenal Cancer: No Hx Diabetes Insipidus: No Hx Diabetes Mellitus Type 1: No Hx Diabetes Mellitus Type 2: Yes Hx Hyperthyroidism: No Hx Hypothyroidism: Yes Hx Systemic Lupus Erythematosus: No - HEMATOLOGICAL/ONCOLOGICAL Hx Blood Disorders: No Hx AIDS: No Hx Anemia: No Hx Cancer: No Hx Chemotherapy: No Hx Cirrhosis: No Hx Hemophilia: No Hx Hepatitis A: No Hx Hepatitis B: No Hx Hepatitis C: No Hx Human Immunodeficiency Virus (HIV): No Hx Metastesis: No Hx Shingles: No Hx Sickle Cell Disease: No Hx Unexplained Bleeding: No - INTEGUMENTARY Hx Dermatological Problems: No Hx Basil Cell: No Hx Eczema: No Hx Melanoma: No Hx Psoriasis: No Hx Squamous Cell: No - MUSCULOSKELETAL/RHEUMATOLOGICAL Hx Musculoskeletal Disorders: Yes Hx Arthritis: Yes Hx Back Pain: No Hx Degenerative Joint Disease: No Hx Falls: Yes Hx Fractures: No Hx Gout: No Hx Herniated Disk: No Hx Myasthenia Gravis: No Hx Osteoarthritis: No Hx Osteomyelitis: No Hx Osteoporosis: No Hx Rhabdomyolysis: No Hx Spinal Stenosis: No Hx Unsteady Gait: Yes (uses walker at home) - GASTROINTESTINAL Hx Gastrointestinal Disorders: No Hx Colostomy: No Hx Crohn's Disease: No Hx Diverticulitis: No Hx Gall Bladder Disease: No Hx Gastroesophageal Reflux: No Hx Ileostomy: No Hx Liver Failure: No Hx Pancreatitis: No HX Swallowing Problems: No Hx Ulcer: No - GENITOURINARY/GYNECOLOGICAL Hx Genitourinary Disorders: Yes Hx Hematuria: No Hx Incontinence: Yes Hx Prostate Problems: No Hx Sexually Transmitted Disorders: No Hx Urinary Tract Infection: No - PSYCHIATRIC Hx Psychophysiologic Disorder: No Hx Anxiety: No Hx Bipolar Disorder: No Hx Depression: No Hx Emotional Abuse: No Hx Hallucinations: No Hx Panic Symptoms: No Hx Paranoia: No Hx Post Traumatic Stress Disorder: No Hx Psychosis: No Hx Physical Abuse: No Hx Schizophrenia: No Hx Sexual Abuse: No Hx Substance Use: No - SURGICAL HISTORY Hx Surgeries: Yes Hx Amputation: No Hx Appendectomy: No Hx Cardiac Catheterization: No Hx Cholecystectomy: No Hx Coronary Stent: No Hx Gastric Bypass Surgery: No Hx Hysterectomy: No Hx Joint Replacement: No Hx Kidney Transplant: No Hx Liver Transplant: No Hx Mastectomy: No Hx Musculoskeletal Surgery: No Hx Open Heart Surgery: No Hx Orthopedic Surgery: No Hx Splenectomy: No Hx Valve Replacement: No - ANESTHESIA Hx Anesthesia: Yes Hx Anesthesia Reactions: No Hx Malignant Hyperthermia: No Meds Allergies/Adverse Reactions: Allergies Allergy/AdvReac Type Severity Reaction Status Date / Time No Known Allergies Allergy Verified 12/18/17 17:36 - Medications Medications: Current Medications Albuterol/Ipratropium (Duoneb 3 Mg/0.5 Mg (3 Ml) Ud) 3 ml IH Q2H PRN PRN Reason: Shortness of Breath Albuterol/Ipratropium (Duoneb 3 Mg/0.5 Mg (3 Ml) Ud) 3 ml IH [id number] GLORIA Apixaban (Eliquis) 2.5 mg PO BID GLORIA; Protocol Last Admin: 10/11/18 09:47 Dose: 2.5 mg Budesonide (Pulmicort Respules) 0.5 mg IH [id number] GLORIA Last Admin: 10/11/18 08:13 Dose: 0.5 mg Dextrose (Dextrose 50% Inj) 0 ml IV STAT PRN; Protocol PRN Reason: Hypoglycemia Protocol Furosemide (Lasix) 40 mg IVP DAILY [facility] Last Admin: 10/11/18 11:14 Dose: 40 mg Dextrose (Dextrose 5% In Water 1000 Ml) 1,000 mls @ 0 mls/hr IV .Q0M PRN; Protocol PRN Reason: Hypoglycemia Protocol Dextrose/Sodium Chloride (Dextrose 5%/0.9% Ns 1000 Ml) 1,000 mls @ 50 mls/hr IV .Q20H GL[facility]IA Last Admin: 10/11/18 07:24 Dose: 50 mls/hr Cefepime HCl (Maxipime 1gm) 1 gm in 100 mls @ 100 mls/hr IVPB Q24H GLORIA; Protocol Last Admin: 10/11/18 09:46 Dose: 100 mls/hr Doxycycline Hyclate 100 mg/ (Sodium Chloride) 100 mls @ 100 mls/hr IVPB Q12 GLORIA; Protocol Last Admin: 10/11/18 08:15 Dose: 100 mls/hr Insulin Human Regular (Humulin R Low) 0 units SC ACHS GLORIA; Protocol Last Admin: 10/11/18 07:43 Dose: Not Given Levothyroxine Sodium (Synthroid) 100 mcg PO 0600 [facility] Last Admin: 10/11/18 05:49 Dose: 100 mcg Methylprednisolone (Solu-Medrol) 40 mg IVP Q12 [facility] Last Admin: 10/11/18 09:50 Dose: 40 mg Metoprolol Tartrate (Lopressor) 25 mg PO BID [facility] Last Admin: 10/11/18 09:47 Dose: 25 mg Pantoprazole Sodium (Protonix Ec Tab) 40 mg PO 0600 [facility] Last Admin: 10/11/18 05:49 Dose: 40 mg Tamsulosin HCl (Flomax) 0.4 mg PO DAILY [facility] Last Admin: 10/11/18 09:47 Dose: 0.4 mg Physical Exam - Constitutional Appears: Non-toxic, No Acute Distress - Head Exam Head Exam: ATRAUMATIC, NORMAL INSPECTION, NORMOCEPHALIC - ENT Exam ENT Exam: Mucous Membranes Moist - Respiratory Exam Respiratory Exam: Decreased Breath Sounds, NORMAL BREATHING PATTERN - Cardiovascular Exam Cardiovascular Exam: RRR, +S1, +S2 - GI/Abdominal Exam GI & Abdominal Exam: Normal Bowel Sounds, Soft. absent: Tenderness - Extremities Exam Extremities exam: Positive for: normal inspection. Negative for: pedal edema - Neurological Exam Neurological exam: Alert, Oriented x3 - Psychiatric Exam Psychiatric exam: Normal Affect, Normal Mood - Skin Skin Exam: Intact, Normal Color, Warm Results - Vital Signs Recent Vital Signs: Last Vital Signs Temp 97.6 F 10/11/18 06:00 Pulse 69 10/11/18 09:47 Resp 18 10/11/18 06:00 BP 113/56 L 10/11/18 11:14 Pulse Ox 100 10/11/18 06:00 - Labs Result Diagrams: 10/11/18 07:15 10/11/18 07:15 Labs: Laboratory Results - last 24 hr 10/10/18 10/10/18 10/10/18 23:37 23:37 23:37 WBC 20.6 H D RBC 3.93 Hgb 13.2 L Hct 39.5 L MCV 100.5 MCH 33.6 MCHC 33.4 RDW 14.1 Plt Count 246 MPV 11.9 H Neut % (Auto) 81.0 H Lymph % (Auto) 9.0 L [place] % (Auto) 8.2 H Eos % (Auto) 1.4 L Baso % (Auto) 0.4 Lymph # (Auto) 1.9 [place] # (Auto) 1.7 H Eos # (Auto) 0.3 Baso # (Auto) 0.08 Absolute Neuts (auto) 16.67 H PT 17.8 H INR 1.60 APTT 46.0 H pCO2 pO2 47 HCO3 ABG pH ABG Total CO2 ABG O2 Saturation ABG O2 Content ABG Base Excess ABG Hemoglobin ABG Carboxyhemoglobin POC ABG HHb (Measured) ABG Methemoglobin ABG O2 Capacity ABG Potassium VBG pH 7.09 L* VBG pCO2 61.0 H VBG HCO3 18.5 L VBG Total CO2 20.4 L VBG O2 Sat (Calc) 82.1 H VBG Base Excess -11.9 L VBG Potassium 5.0 Hgb O2 Saturation Sodium 137.0 Chloride 106.0 Glucose 38 L* D Lactate 3.4 H FiO2 21.0 Crit Value Called To Everardo sarabia rn ed Crit Value Called By Tyler Blood Gas Notified Time 15 Potassium Carbon Dioxide Anion Gap BUN Creatinine Est GFR ( Amer) Est GFR (Non-Af Amer) POC Glucose (mg/dL) Random Glucose Calcium Magnesium Total Bilirubin AST ALT Alkaline Phosphatase Total Creatine Kinase CK-MB (CK-2) CK-MB (CK-2) % Troponin I NT-Pro-B Natriuret Pep Total Protein Albumin Globulin Albumin/Globulin Ratio Arterial Blood Potassium Venous Blood Potassium 5.0 Urine Color Urine Appearance Urine pH Ur Specific [place] Urine Protein Urine Glucose (UA) Urine Ketones Urine Blood Urine Nitrate Urine Bilirubin Urine Urobilinogen Ur Leukocyte Esterase Urine RBC Urine WBC Ur Epithelial Cells Urine Bacteria Urine Other Influenza Typ A,B (EIA) 10/10/18 10/11/18 10/11/18 23:37 01:00 01:13 WBC RBC Hgb Hct MCV MCH MCHC RDW Plt Count MPV Neut % (Auto) Lymph % (Auto) [place] % (Auto) Eos % (Auto) Baso % (Auto) Lymph # (Auto) [place] # (Auto) Eos # (Auto) Baso # (Auto) Absolute Neuts (auto) PT INR APTT pCO2 33 L pO2 215.0 H HCO3 14.5 L ABG pH 7.25 L ABG Total CO2 15.5 L ABG O2 Saturation 99.7 H ABG O2 Content 17.0 ABG Base Excess -11.7 L ABG Hemoglobin 12.1 ABG Carboxyhemoglobin 1.8 H POC ABG HHb (Measured) 0.3 ABG Methemoglobin 0.9 ABG O2 Capacity 17.1 ABG Potassium VBG pH VBG pCO2 VBG HCO3 VBG Total CO2 VBG O2 Sat (Calc) VBG Base Excess VBG Potassium Hgb O2 Saturation 97.1 Sodium 137 Chloride 105 Glucose Lactate FiO2 60.0 Crit Value Called To Crit Value Called By Blood Gas Notified Time Potassium 5.2 H Carbon Dioxide 19 L Anion Gap 18 BUN 51 H Creatinine 3.3 H Est GFR ( Amer) 22 Est GFR (Non-Af Amer) 18 POC Glucose (mg/dL) 145 H Random Glucose 39 L* D Calcium 9.5 Magnesium 2.0 Total Bilirubin 0.4 AST 45 ALT 14 Alkaline Phosphatase 102 Total Creatine Kinase CK-MB (CK-2) CK-MB (CK-2) % Troponin I < 0.01 NT-Pro-B Natriuret Pep 1140 H Total Protein 8.6 H Albumin 4.7 Globulin 3.9 Albumin/Globulin Ratio 1.2 Arterial Blood Potassium Venous Blood Potassium Urine Color Urine Appearance Urine pH Ur Specific [place] Urine Protein Urine Glucose (UA) Urine Ketones Urine Blood Urine Nitrate Urine Bilirubin Urine Urobilinogen Ur Leukocyte Esterase Urine RBC Urine WBC Ur Epithelial Cells Urine Bacteria Urine Other Influenza Typ A,B (EIA) 10/11/18 10/11/18 10/11/18 03:30 05:50 06:30 WBC RBC Hgb Hct MCV MCH MCHC RDW Plt Count MPV Neut % (Auto) Lymph % (Auto) [place] % (Auto) Eos % (Auto) Baso % (Auto) Lymph # (Auto) [place] # (Auto) Eos # (Auto) Baso # (Auto) Absolute Neuts (auto) PT INR APTT pCO2 31 L pO2 17 L 67.0 L HCO3 16.3 L ABG pH 7.33 L ABG Total CO2 17.3 L ABG O2 Saturation 96.5 ABG O2 Content ABG Base Excess -8.4 L ABG Hemoglobin ABG Carboxyhemoglobin POC ABG HHb (Measured) ABG Methemoglobin ABG O2 Capacity ABG Potassium 4.1 VBG pH 7.23 L VBG pCO2 47.0 VBG HCO3 19.7 L VBG Total CO2 21.1 L VBG O2 Sat (Calc) 32.4 L VBG Base Excess -7.9 L VBG Potassium 4.4 Hgb O2 Saturation Sodium 136.0 138.0 Chloride 105.0 112.0 H Glucose 119 H 26 L* D Lactate 2.9 H 1.6 FiO2 21.0 21.0 Crit Value Called To Shelley greene rn 2rno Rn Crit Value Called By Tyler Rs Blood Gas Notified Time [id number] Potassium Carbon Dioxide Anion Gap BUN Creatinine Est GFR ( Amer) Est GFR (Non-Af Amer) POC Glucose (mg/dL) Random Glucose Calcium Magnesium Total Bilirubin AST ALT Alkaline Phosphatase Total Creatine Kinase CK-MB (CK-2) CK-MB (CK-2) % Troponin I NT-Pro-B Natriuret Pep Total Protein Albumin Globulin Albumin/Globulin Ratio Arterial Blood Potassium 4.1 Venous Blood Potassium 4.4 Urine Color Light yellow Urine Appearance Slight-cloudy Urine pH 5.5 Ur Specific [place] 1.020 Urine Protein Negative Urine Glucose (UA) 100 H Urine Ketones Negative Urine Blood Small H Urine Nitrate Negative Urine Bilirubin Negative Urine Urobilinogen 0.2 Ur Leukocyte Esterase Trace H Urine RBC 5 - 10 H Urine WBC 2 - 5 Ur Epithelial Cells None Urine Bacteria Many Urine Other Uyeast Influenza Typ A,B (EIA) 10/11/18 10/11/18 10/11/18 06:30 07:15 07:15 WBC 16.2 H D RBC 3.80 Hgb 12.5 L Hct 37.8 L MCV 99.5 MCH 32.9 MCHC 33.1 RDW 14.1 Plt Count 213 MPV 11.9 H Neut % (Auto) 79.4 H Lymph % (Auto) 8.5 L [place] % (Auto) 9.6 H Eos % (Auto) 2.3 Baso % (Auto) 0.2 Lymph # (Auto) 1.4 [place] # (Auto) 1.6 H Eos # (Auto) 0.4 Baso # (Auto) 0.04 Absolute Neuts (auto) 12.82 H PT INR APTT pCO2 pO2 HCO3 ABG pH ABG Total CO2 ABG O2 Saturation ABG O2 Content ABG Base Excess ABG Hemoglobin ABG Carboxyhemoglobin POC ABG HHb (Measured) ABG Methemoglobin ABG O2 Capacity ABG Potassium VBG pH VBG pCO2 VBG HCO3 VBG Total CO2 VBG O2 Sat (Calc) VBG Base Excess VBG Potassium Hgb O2 Saturation Sodium 141 Chloride 107 Glucose Lactate FiO2 Crit Value Called To Crit Value Called By Blood Gas Notified Time Potassium 4.3 Carbon Dioxide 21 Anion Gap 17 BUN 52 H Creatinine 3.0 H Est GFR ( Amer) 25 Est GFR (Non-Af Amer) 21 POC Glucose (mg/dL) Random Glucose < 20 L* D Calcium 9.0 Magnesium Total Bilirubin 0.4 AST 38 ALT 18 Alkaline Phosphatase 92 Total Creatine Kinase 433 H CK-MB (CK-2) 4.8 H CK-MB (CK-2) % Cancelled Troponin I NT-Pro-B Natriuret Pep Total Protein 8.0 Albumin 4.2 Globulin 3.7 Albumin/Globulin Ratio 1.1 Arterial Blood Potassium Venous Blood Potassium Urine Color Urine Appearance Urine pH Ur Specific [place] Urine Protein Urine Glucose (UA) Urine Ketones Urine Blood Urine Nitrate Urine Bilirubin Urine Urobilinogen Ur Leukocyte Esterase Urine RBC Urine WBC Ur Epithelial Cells Urine Bacteria Urine Other Influenza Typ A,B (EIA) Negative for flu a/b Assessment & Plan - Assessment and Plan (Free Text) Plan: R/O acute bronchitis Hypoglycemia Hx of A-fib on Eliquis Hx of COPD Hx of CHF Hx of DM Hx of Psoriasis Hx of hypothyroidism Plan Continue Cefepime and Doxycycline Chest x-ray reviewed Follow up MRSA screen, Legionella, Procal Follow up cultures Continue to monitor closely Daniela, PGY-3 <Devonte Spencer S - Last Filed: 10/11/18 16:13> Meds - Medications Medications: Current Medications Albuterol/Ipratropium (Duoneb 3 Mg/0.5 Mg (3 Ml) Ud) 3 ml IH Q2H PRN PRN Reason: Shortness of Breath Albuterol/Ipratropium (Duoneb 3 Mg/0.5 Mg (3 Ml) Ud) 3 ml IH [id number] [facility] Last Admin: 10/11/18 13:21 Dose: 3 ml Apixaban (Eliquis) 2.5 mg PO BID [facility]ORIA; Protocol Last Admin: 10/11/18 09:47 Dose: 2.5 mg Budesonide (Pulmicort Respules) 0.5 mg IH [id number] [facility] Last Admin: 10/11/18 08:13 Dose: 0.5 mg Dextrose (Dextrose 50% Inj) 0 ml IV STAT PRN; Protocol PRN Reason: Hypoglycemia Protocol Furosemide (Lasix) 40 mg IVP DAILY [facility] Last Admin: 10/11/18 11:14 Dose: 40 mg Dextrose (Dextrose 5% In Water 1000 Ml) 1,000 mls @ 0 mls/hr IV .Q0M PRN; Protocol PRN Reason: Hypoglycemia Protocol Dextrose/Sodium Chloride (Dextrose 5%/0.9% Ns 1000 Ml) 1,000 mls @ 50 mls/hr IV .Q20H [facility] Last Admin: 10/11/18 07:24 Dose: 50 mls/hr Cefepime HCl (Maxipime 1gm) 1 gm in 100 mls @ 100 mls/hr IVPB Q24H [facility]IA; Protocol Last Admin: 10/11/18 09:46 Dose: 100 mls/hr Doxycycline Hyclate 100 mg/ (Sodium Chloride) 100 mls @ 100 mls/hr IVPB Q12 [facility]; Protocol Last Admin: 10/11/18 08:15 Dose: 100 mls/hr Insulin Human Regular (Humulin R Low) 0 units SC ACHS [facility]; Protocol Last Admin: 10/11/18 11:52 Dose: 5 units Levothyroxine Sodium (Synthroid) 100 mcg PO 0600 [facility] Last Admin: 10/11/18 05:49 Dose: 100 mcg Methylprednisolone (Solu-Medrol) 40 mg IVP Q12 [facility] Last Admin: 10/11/18 09:50 Dose: 40 mg Metoprolol Tartrate (Lopressor) 25 mg PO BID [facility] Last Admin: 10/11/18 09:47 Dose: 25 mg Pantoprazole Sodium (Protonix Ec Tab) 40 mg PO 0600 [facility] Last Admin: 10/11/18 05:49 Dose: 40 mg Tamsulosin HCl (Flomax) 0.4 mg PO DAILY [facility] Last Admin: 10/11/18 09:47 Dose: 0.4 mg Results - Vital Signs Recent Vital Signs: Last Vital Signs Temp 98 F 10/11/18 12:00 Pulse 100 H 10/11/18 14:00 Resp 20 10/11/18 12:00 BP 113/56 L 10/11/18 12:00 Pulse Ox 100 10/11/18 09:08 - Labs Result Diagrams: 10/11/18 07:15 10/11/18 07:15 Labs: Laboratory Results - last 24 hr 10/10/18 10/10/18 10/10/18 23:37 23:37 23:37 WBC 20.6 H D RBC 3.93 Hgb 13.2 L Hct 39.5 L MCV 100.5 MCH 33.6 MCHC 33.4 RDW 14.1 Plt Count 246 MPV 11.9 H Neut % (Auto) 81.0 H Lymph % (Auto) 9.0 L [place] % (Auto) 8.2 H Eos % (Auto) 1.4 L Baso % (Auto) 0.4 Lymph # (Auto) 1.9 [place] # (Auto) 1.7 H Eos # (Auto) 0.3 Baso # (Auto) 0.08 Absolute Neuts (auto) 16.67 H PT 17.8 H INR 1.60 APTT 46.0 H pCO2 pO2 47 HCO3 ABG pH ABG Total CO2 ABG O2 Saturation ABG O2 Content ABG Base Excess ABG Hemoglobin ABG Carboxyhemoglobin POC ABG HHb (Measured) ABG Methemoglobin ABG O2 Capacity ABG Potassium VBG pH 7.09 L* VBG pCO2 61.0 H VBG HCO3 18.5 L VBG Total CO2 20.4 L VBG O2 Sat (Calc) 82.1 H VBG Base Excess -11.9 L VBG Potassium 5.0 Hgb O2 Saturation Sodium 137.0 Chloride 106.0 Glucose 38 L* D Lactate 3.4 H FiO2 21.0 Crit Value Called To Everardo sarabia rn ed Crit Value Called By Jsm Blood Gas Notified Time 15 Potassium Carbon Dioxide Anion Gap BUN Creatinine Est GFR ( Amer) Est GFR (Non-Af Amer) POC Glucose (mg/dL) Random Glucose Calcium Magnesium Total Bilirubin AST ALT Alkaline Phosphatase Total Creatine Kinase CK-MB (CK-2) CK-MB (CK-2) % Troponin I NT-Pro-B Natriuret Pep Total Protein Albumin Globulin Albumin/Globulin Ratio Procalcitonin Arterial Blood Potassium Venous Blood Potassium 5.0 Urine Color Urine Appearance Urine pH Ur Specific [place] Urine Protein Urine Glucose (UA) Urine Ketones Urine Blood Urine Nitrate Urine Bilirubin Urine Urobilinogen Ur Leukocyte Esterase Urine RBC Urine WBC Ur Epithelial Cells Urine Bacteria Urine Other Ur Random Creatinine Influenza Typ A,B (EIA) Ur L.pneumophila Ag 10/10/18 10/11/18 10/11/18 23:37 01:00 01:13 WBC RBC Hgb Hct MCV MCH MCHC RDW Plt Count MPV Neut % (Auto) Lymph % (Auto) [place] % (Auto) Eos % (Auto) Baso % (Auto) Lymph # (Auto) [place] # (Auto) Eos # (Auto) Baso # (Auto) Absolute Neuts (auto) PT INR APTT pCO2 33 L pO2 215.0 H HCO3 14.5 L ABG pH 7.25 L ABG Total CO2 15.5 L ABG O2 Saturation 99.7 H ABG O2 Content 17.0 ABG Base Excess -11.7 L ABG Hemoglobin 12.1 ABG Carboxyhemoglobin 1.8 H POC ABG HHb (Measured) 0.3 ABG Methemoglobin 0.9 ABG O2 Capacity 17.1 ABG Potassium VBG pH VBG pCO2 VBG HCO3 VBG Total CO2 VBG O2 Sat (Calc) VBG Base Excess VBG Potassium Hgb O2 Saturation 97.1 Sodium 137 Chloride 105 Glucose Lactate FiO2 60.0 Crit Value Called To Crit Value Called By Blood Gas Notified Time Potassium 5.2 H Carbon Dioxide 19 L Anion Gap 18 BUN 51 H Creatinine 3.3 H Est GFR ( Amer) 22 Est GFR (Non-Af Amer) 18 POC Glucose (mg/dL) 145 H Random Glucose 39 L* D Calcium 9.5 Magnesium 2.0 Total Bilirubin 0.4 AST 45 ALT 14 Alkaline Phosphatase 102 Total Creatine Kinase CK-MB (CK-2) CK-MB (CK-2) % Troponin I < 0.01 NT-Pro-B Natriuret Pep 1140 H Total Protein 8.6 H Albumin 4.7 Globulin 3.9 Albumin/Globulin Ratio 1.2 Procalcitonin Arterial Blood Potassium Venous Blood Potassium Urine Color Urine Appearance Urine pH Ur Specific [place] Urine Protein Urine Glucose (UA) Urine Ketones Urine Blood Urine Nitrate Urine Bilirubin Urine Urobilinogen Ur Leukocyte Esterase Urine RBC Urine WBC Ur Epithelial Cells Urine Bacteria Urine Other Ur Random Creatinine Influenza Typ A,B (EIA) Ur L.pneumophila Ag 10/11/18 10/11/18 10/11/18 03:30 05:50 06:30 WBC RBC Hgb Hct MCV MCH MCHC RDW Plt Count MPV Neut % (Auto) Lymph % (Auto) [place] % (Auto) Eos % (Auto) Baso % (Auto) Lymph # (Auto) [place] # (Auto) Eos # (Auto) Baso # (Auto) Absolute Neuts (auto) PT INR APTT pCO2 31 L pO2 17 L 67.0 L HCO3 16.3 L ABG pH 7.33 L ABG Total CO2 17.3 L ABG O2 Saturation 96.5 ABG O2 Content ABG Base Excess -8.4 L ABG Hemoglobin ABG Carboxyhemoglobin POC ABG HHb (Measured) ABG Methemoglobin ABG O2 Capacity ABG Potassium 4.1 VBG pH 7.23 L VBG pCO2 47.0 VBG HCO3 19.7 L VBG Total CO2 21.1 L VBG O2 Sat (Calc) 32.4 L VBG Base Excess -7.9 L VBG Potassium 4.4 Hgb O2 Saturation Sodium 136.0 138.0 Chloride 105.0 112.0 H Glucose 119 H 26 L* D Lactate 2.9 H 1.6 FiO2 21.0 21.0 Crit Value Called To Shelley greene rn dickson Darden Crit Value Called By Tyler Rs Blood Gas Notified Time 344 [id number] Potassium Carbon Dioxide Anion Gap BUN Creatinine Est GFR ( Amer) Est GFR (Non-Af Amer) POC Glucose (mg/dL) Random Glucose Calcium Magnesium Total Bilirubin AST ALT Alkaline Phosphatase Total Creatine Kinase CK-MB (CK-2) CK-MB (CK-2) % Troponin I NT-Pro-B Natriuret Pep Total Protein Albumin Globulin Albumin/Globulin Ratio Procalcitonin Arterial Blood Potassium 4.1 Venous Blood Potassium 4.4 Urine Color Light yellow Urine Appearance Slight-cloudy Urine pH 5.5 Ur Specific [place] 1.020 Urine Protein Negative Urine Glucose (UA) 100 H Urine Ketones Negative Urine Blood Small H Urine Nitrate Negative Urine Bilirubin Negative Urine Urobilinogen 0.2 Ur Leukocyte Esterase Trace H Urine RBC 5 - 10 H Urine WBC 2 - 5 Ur Epithelial Cells None Urine Bacteria Many Urine Other Uyeast Ur Random Creatinine Influenza Typ A,B (EIA) Ur L.pneumophila Ag 10/11/18 10/11/18 10/11/18 06:30 06:30 07:00 WBC RBC Hgb Hct MCV MCH MCHC RDW Plt Count MPV Neut % (Auto) Lymph % (Auto) [place] % (Auto) Eos % (Auto) Baso % (Auto) Lymph # (Auto) [place] # (Auto) Eos # (Auto) Baso # (Auto) Absolute Neuts (auto) PT INR APTT pCO2 pO2 HCO3 ABG pH ABG Total CO2 ABG O2 Saturation ABG O2 Content ABG Base Excess ABG Hemoglobin ABG Carboxyhemoglobin POC ABG HHb (Measured) ABG Methemoglobin ABG O2 Capacity ABG Potassium VBG pH VBG pCO2 VBG HCO3 VBG Total CO2 VBG O2 Sat (Calc) VBG Base Excess VBG Potassium Hgb O2 Saturation Sodium Chloride Glucose Lactate FiO2 Crit Value Called To Crit Value Called By Blood Gas Notified Time Potassium Carbon Dioxide Anion Gap BUN Creatinine Est GFR ( Amer) Est GFR (Non-Af Amer) POC Glucose (mg/dL) Random Glucose Calcium Magnesium Total Bilirubin AST ALT Alkaline Phosphatase Total Creatine Kinase CK-MB (CK-2) CK-MB (CK-2) % Troponin I NT-Pro-B Natriuret Pep Total Protein Albumin Globulin Albumin/Globulin Ratio Procalcitonin 38.07 H Arterial Blood Potassium Venous Blood Potassium Urine Color Urine Appearance Urine pH Ur Specific [place] Urine Protein Urine Glucose (UA) Urine Ketones Urine Blood Urine Nitrate Urine Bilirubin Urine Urobilinogen Ur Leukocyte Esterase Urine RBC Urine WBC Ur Epithelial Cells Urine Bacteria Urine Other Ur Random Creatinine Influenza Typ A,B (EIA) Negative for flu a/b Ur L.pneumophila Ag Negative 10/11/18 10/11/18 10/11/18 07:15 07:15 14:36 WBC 16.2 H D RBC 3.80 Hgb 12.5 L Hct 37.8 L MCV 99.5 MCH 32.9 MCHC 33.1 RDW 14.1 Plt Count 213 MPV 11.9 H Neut % (Auto) 79.4 H Lymph % (Auto) 8.5 L [place] % (Auto) 9.6 H Eos % (Auto) 2.3 Baso % (Auto) 0.2 Lymph # (Auto) 1.4 [place] # (Auto) 1.6 H Eos # (Auto) 0.4 Baso # (Auto) 0.04 Absolute Neuts (auto) 12.82 H PT INR APTT pCO2 pO2 HCO3 ABG pH ABG Total CO2 ABG O2 Saturation ABG O2 Content ABG Base Excess ABG Hemoglobin ABG Carboxyhemoglobin POC ABG HHb (Measured) ABG Methemoglobin ABG O2 Capacity ABG Potassium VBG pH VBG pCO2 VBG HCO3 VBG Total CO2 VBG O2 Sat (Calc) VBG Base Excess VBG Potassium Hgb O2 Saturation Sodium 141 Chloride 107 Glucose Lactate FiO2 Crit Value Called To Crit Value Called By Blood Gas Notified Time Potassium 4.3 Carbon Dioxide 21 Anion Gap 17 BUN 52 H Creatinine 3.0 H Est GFR ( Amer) 25 Est GFR (Non-Af Amer) 21 POC Glucose (mg/dL) Random Glucose < 20 L* D Calcium 9.0 Magnesium Total Bilirubin 0.4 AST 38 ALT 18 Alkaline Phosphatase 92 Total Creatine Kinase 433 H CK-MB (CK-2) 4.8 H CK-MB (CK-2) % Cancelled Troponin I NT-Pro-B Natriuret Pep Total Protein 8.0 Albumin 4.2 Globulin 3.7 Albumin/Globulin Ratio 1.1 Procalcitonin Arterial Blood Potassium Venous Blood Potassium Urine Color Urine Appearance Urine pH Ur Specific [place] Urine Protein Urine Glucose (UA) Urine Ketones Urine Blood Urine Nitrate Urine Bilirubin Urine Urobilinogen Ur Leukocyte Esterase Urine RBC Urine WBC Ur Epithelial Cells Urine Bacteria Urine Other Ur Random Creatinine 16 Influenza Typ A,B (EIA) Ur L.pneumophila Ag Assessment & Plan - Assessment and Plan (Free Text) Plan: Infectious diseases Attending Physician Attestation Patient seen and examined, discussed with medical scribe. I have reviewed the patient's history of present illness, past medical, social, personal and family histories, pertinent physical exam findings, course so far in this hospital admission, pertinent laboratory and imaging results. I agree with the above findings, assessment and plan. In addition, patient with probable acute exacerbation of COPD and CHF. Started Cefepime and Doxycycline pending blood cx. Reviewed CXR which does not show infiltrates.
--- NOTE | 2018-10-11 12:12 | CP.PCM.APN ---
Subjective - Date & Time of Evaluation Date of Evaluation: 10/11/18 Time of Evaluation: 09:15 - Subjective Subjective: pt seen and examined at bedside pt offers no complaints when questions but appears SOB on exam Review of Systems - Review of Systems All systems: reviewed and no additional remarkable complaints except Objective - Vital Signs/Intake and Output Vital Signs (last 24 hours): Temp Pulse Resp BP Pulse Ox 97.6 F 69 18 113/56 L 100 10/11/18 06:00 10/11/18 09:47 10/11/18 06:00 10/11/18 11:14 10/11/18 06:00 Intake and Output: 10/11/18 10/11/18 06:59 18:59 Intake Total 0 Output Total 1 Balance -1 - Medications Medications: Current Medications Albuterol/Ipratropium (Duoneb 3 Mg/0.5 Mg (3 Ml) Ud) 3 ml IH Q2H PRN PRN Reason: Shortness of Breath Albuterol/Ipratropium (Duoneb 3 Mg/0.5 Mg (3 Ml) Ud) 3 ml IH [id number] [facility] Apixaban (Eliquis) 2.5 mg PO BID GLORIA; Protocol Last Admin: 10/11/18 09:47 Dose: 2.5 mg Budesonide (Pulmicort Respules) 0.5 mg IH [id number] GLORIA Last Admin: 10/11/18 08:13 Dose: 0.5 mg Dextrose (Dextrose 50% Inj) 0 ml IV STAT PRN; Protocol PRN Reason: Hypoglycemia Protocol Furosemide (Lasix) 40 mg IVP DAILY [facility] Last Admin: 10/11/18 11:14 Dose: 40 mg Dextrose (Dextrose 5% In Water 1000 Ml) 1,000 mls @ 0 mls/hr IV .Q0M PRN; Protocol PRN Reason: Hypoglycemia Protocol Dextrose/Sodium Chloride (Dextrose 5%/0.9% Ns 1000 Ml) 1,000 mls @ 50 mls/hr IV .Q20H GLORIA Last Admin: 10/11/18 07:24 Dose: 50 mls/hr Cefepime HCl (Maxipime 1gm) 1 gm in 100 mls @ 100 mls/hr IVPB Q24H GLORIA; Protocol Last Admin: 10/11/18 09:46 Dose: 100 mls/hr Doxycycline Hyclate 100 mg/ (Sodium Chloride) 100 mls @ 100 mls/hr IVPB Q12 [facility]; Protocol Last Admin: 10/11/18 08:15 Dose: 100 mls/hr Insulin Human Regular (Humulin R Low) 0 units SC ACHS [facility]; Protocol Last Admin: 10/11/18 07:43 Dose: Not Given Levothyroxine Sodium (Synthroid) 100 mcg PO 0600 [facility] Last Admin: 10/11/18 05:49 Dose: 100 mcg Methylprednisolone (Solu-Medrol) 40 mg IVP Q12 [facility] Last Admin: 10/11/18 09:50 Dose: 40 mg Metoprolol Tartrate (Lopressor) 25 mg PO BID [facility] Last Admin: 10/11/18 09:47 Dose: 25 mg Pantoprazole Sodium (Protonix Ec Tab) 40 mg PO 0600 [facility] Last Admin: 10/11/18 05:49 Dose: 40 mg Tamsulosin HCl (Flomax) 0.4 mg PO DAILY [facility] Last Admin: 10/11/18 09:47 Dose: 0.4 mg - Labs Labs: 10/11/18 07:15 10/11/18 07:15 PT 17.8 SECONDS (9.4-12.5) H 10/10/18 23:37 INR 1.60 10/10/18 23:37 APTT 46.0 Seconds (26.9-38.3) H 10/10/18 23:37 - Constitutional Appears: No Acute Distress - Eye Exam Eye Exam: Normal appearance, PERRL - ENT Exam ENT Exam: Mucous Membranes Moist - Neck Exam Neck Exam: Normal Inspection - Respiratory Exam Respiratory Exam: Decreased Breath Sounds, Rales, NORMAL BREATHING PATTERN - Cardiovascular Exam Cardiovascular Exam: +S1, +S2 - Neurological Exam Neurological Exam: Alert, Awake - Psychiatric Exam Psychiatric exam: Normal Mood - Skin Skin Exam: Dry, Intact - Additional Findings Additional findings: pt with Bipap at bedside Assessment and Plan - Assessment and Plan (Free Text) Plan: 73 yr old white male with pmh sig for afib on eliquis, copd, chf, DM, RI, Hypothyroidism, who presented to the ED with c/o SOB x 1 day duration found to be hypoxic with met . acidosis an dper ED report had o2 sat in the 80s initially, elevated lactate 3.4 on admission, leukocytosis, elevated bnp, pt requiring BIPAP for adequate oxygenation now admitted for further eval and treatment for HCAP with ID and pul consultation as well as renal consultation for PUNEET and metabolic acidosis with ? resp compensation. #HCAP iv antibiotics therapy pulmonary and ID consultaiton iv antibiotics therapy #COPD exacerbation BIPAP therapy duoneb regimen #hypoglycemia Bs noted 37, less than 20 on blood work pt with Dextrose 5% in NS at 100 in setting of sepsis/ infectious process # Puneet on ? CKD Renal consultaiton Urine studies # chf exacerbation iV lasix Strict I/O # afib Eliquis regimen will continue to follow Roxana Fung
[2018-10-11] MEDS: Albuterol-Ipratrop 3 mg / 0.5 (3 ml) UD IH SCH ×2 (13:21→21:45)
--- NOTE | 2018-10-11 16:01 | CON ---
DATE: 10/11/2018 PULMONARY CONSULTATION REASON FOR PULMONARY CONSULTATION: Chronic obstructive pulmonary disease. REFERRING PHYSICIAN FOR THIS PULMONARY CONSULTATION: Dr. Ramon. HISTORY OF PRESENT ILLNESS: The patient is a chronically ill 73-year-old male, with past medical history significant for advanced chronic obstructive pulmonary disease, congestive heart failure, chronic atrial fibrillation (on Eliquis), diabetes mellitus, who presents to [facility] with a 1-day history of increasing shortness of breath at rest and dyspnea on exertion. The patient denies cough or sputum production. The patient also denies chest pain, coughing up of blood, or chest pain - brought on with deep respirations. There is no history of temperatures, chills, or infectious exposure. There is no history of night sweats, weight loss, or appetite change prior to the above events. No history of calf pains. No history of syncope or diaphoresis. No history of recent travel or trauma. REVIEW OF SYSTEMS: No history of nausea, vomiting, or diarrhea. No acute urinary symptoms. No new neurologic or musculoskeletal complaints. Rest of the review of systems is negative. ALLERGIES: NO KNOWN ALLERGIES. SOCIAL HISTORY: Positive for extensive tobacco usage. No alcohol. FAMILY HISTORY: No inheritable diseases. HOME MEDICATIONS: Include Flomax, Lopressor, Synthroid, Pulmicort, Eliquis, Ultram, oxycodone, Apresoline, Synthroid, Humulin, Neurontin, and DuoNebs. PHYSICAL EXAMINATION: GENERAL: The patient appears comfortable this morning. He is not short of breath at rest. He is currently on BiPAP. VITALS: Temperature is 97.6, pulse 66, respirations 18, blood pressure 108/61. Oxygen saturation on BiPAP is 100%. HEENT: Normocephalic and atraumatic. No JVD. CARDIOVASCULAR: Systolic ejection murmur at the lower left sternal border. No S3 gallop. LUNGS: Decreased breath sounds at the bases. Mild bilateral rhonchi. A few expiratory wheezes are also appreciated. EXTREMITIES: Positive for mild edema. No cyanosis, no clubbing. Calves are nontender to palpation. GI: Abdomen is soft, nontender, and nondistended. Bowel sounds are positive. SKIN: No acute rash. NEUROLOGIC EXAM: Limited at the present time. PERTINENT LABORATORY DATA: Chest x-ray was done late last night and reviewed. There is flattening of the diaphragms. There are no significant new infiltrates. Official results are pending. Arterial blood gas was done on nasal cannula. Results are: PH 7.33, pCO2 31, pO2 of 67. CBC: White count 16.2K, hemoglobin 12.5, hematocrit 37.8, platelets of 213,000. Complete Metabolic Profile: BUN 32, creatinine 3, glucose 145, alkaline phosphatase 433. Rest of the metabolic profiles within normal limits. IMPRESSION: 1. Acute bronchitis. 2. Advanced chronic obstructive pulmonary disease. 3. Chronic atrial fibrillation. 4. Mild anemia. 5. Renal insufficiency. PLAN: I did discuss the case with the nurse at length. I have also reviewed the chart at length, and discussed the case with the patient at length. The patient presents to [facility] with a 1-day history of increasing shortness of breath at rest and dyspnea on exertion. He offers no other pulmonary symptoms. I did review the chest x-ray as above. I do not appreciate any new or significant changes. Official results are pending. I have also reviewed the arterial blood gas. There is a mild metabolic acidosis noted with an increase in the alveolar-arterial gradient. The patient is currently on BiPAP. We will try to transition him to nasal cannula this morning. On physical exam, the patient is in [id number] bronchospasm. I will change the DuoNeb treatments to every six [id number], and increase the intravenous Solu-Medrol dose slightly. Procalcitonin pending. The patient has been started on antibiotic therapy as per Infectious Disease. The leukocytosis is improved/ decreased this morning. Again, there is no history of temperatures. Again, I did discuss the case with the nursing staff at length. The patient is significantly improved - compared to his initial presentation. However, given the above, the future status/prognosis for this chronically ill patient does remain guarded. I will discuss the above with the attending physician. Thank you very much for this pulmonary consultation. Umair Kauffman MD [facility] # [id number] [place]
[2018-10-11] MEDS ORDERED: Insulin Regular 1 UNITS/0.01 ML ML SC STA ×2 (16:52→21:28)
--- NOTE | 2018-10-11 16:56 | CARD ---
APPROVED REPORT Date of service: 10/11/2018 EKG Measurement Heart [id number] <Conclusion> Normal sinus rhythm Inferior infarct, age undetermined Abnormal ECG
--- NOTE | 2018-10-11 17:21 | CARD ---
APPROVED REPORT Date of service: 10/10/2018 EKG Measurement Heart [id number] <Conclusion> Normal sinus rhythm Normal ECG
--- NOTE | 2018-10-11 22:02 | CON ---
DATE OF CONSULTATION: 10/11/2018 REASON FOR CONSULTATION: Renal insufficiency. HISTORY OF PRESENTING ILLNESS: A 73-year-old male, previously unknown to me, was brought to the emergency room by family members because of respiratory distress. The patient was found to be hypoxic, O2 sats in the 80s. Although the patient says that he was brought to the hospital because of hypoglycemia and low sugar at home, he also says that his daughter found him having seizures?? In the emergency room, he was found to be normotensive, afebrile. His glucose was found to be 145, although on the blood test his glucose was 39 and he was found to have a BUN of 51 and a creatinine of 3.3 with a potassium of 5.2. Hence, consultation is requested. The patient denies any knowledge of any kidney disease. He gives a history of diabetes for 10 years, hypertension for 10 years, he denies any heart disease. PAST MEDICAL/SURGICAL HISTORY: AFib, on Eliquis, COPD, CHF, diabetes, hypertension. FAMILY HISTORY: Noncontributory. SOCIAL HISTORY: No smoking, no alcohol use, no IV drug abuse. MEDICATIONS AT HOME: Flomax 0.4, metoprolol 25 b.i.d., Synthroid 100, Pulmicort, Eliquis 2.5 b.i.d., hydralazine 10 four times a day p.r.n. ALLERGIES: NO KNOWN DRUG ALLERGIES. REVIEW OF SYSTEMS: All systems are reviewed, pertinent positives as mentioned in the history of presenting illness, rest unremarkable. PHYSICAL EXAMINATION: GENERAL: Elderly male, lying in bed, in no acute distress. VITAL SIGNS: Blood pressure 113/56, heart rate 96, respiratory rate 20, temperature 98. HEENT: Normocephalic, atraumatic, positive pallor. NECK: Supple, no JVD. LUNGS: Bilateral equal air entry, bilateral equal air expansion. No rales appreciated. No rhonchi. CARDIAC: S1 and S2, regular rate and rhythm, no murmur, no rub. ABDOMEN: Soft, nondistended, nontender, bowel sounds present. EXTREMITIES: No lower extremity edema. LABORATORY DATA: WBC 16, hemoglobin 12.5, hematocrit 37.8, platelets 213,000. Sodium 141, potassium 4.3, chloride 107, CO2 of 21, BUN 52, creatinine 3.0, glucose less than 20, calcium 9.0, AST 38, ALT 18, CPK 433, albumin 4.2, procalcitonin 38. Urinalysis: Yellow, slightly cloudy, pH 5.5, specific gravity 1.020, protein negative, glucose 100, blood small, leukocyte esterase trace, urine creatinine 16. Chest x-ray: No active pulmonary disease. CURRENT MEDICATIONS: D5 normal saline at 50 mL per hour, doxycycline 100 every 12 hours, DuoNeb, Eliquis 2.5 b.i.d., Flomax 0.4, Lasix 40 mg IV daily?? Lopressor 25 b.i.d., Maxipime 1 g daily, Protonix 40, Pulmicort, Solu-Medrol 40 IV every 12 hours, Synthroid 100. ASSESSMENT: 1. Acute kidney injury superimposed on chronic kidney disease stage 3/4, although the patient denies any knowledge of chronic kidney disease. As per the computer records, perhaps his baseline creatinine is around 1.8 to 2. He has had multiple episodes of acute kidney injury. Currently appears to be hypovolemic/prerenal azotemia. 2. Hyperkalemia secondary to acute kidney injury. 3. Hypoglycemia, likely secondary to worsening renal parameters. 4. Hypotension, likely secondary to sepsis. 5. Sepsis/leukocytosis ? source. 6. History of congestive heart failure. 7. Unclear indication for Eliquis? PLAN: 1. Hold IV Lasix. 2. Continue IV fluids. 3. Monitor glucose closely. 4. Push p.o. fluids. 5. Agree with empiric antibiotics. 6. Monitor glucose closely. Thank you for the courtesy of this consultation. We will follow this patient closely with you. Belem Campbell MD
[2018-10-12] MEDS: Albuterol-Ipratrop 3 mg / 0.5 (3 ml) UD IH SCH ×4 (01:55→19:42)
[2018-10-12] MEDS: Levothyroxine 100 MCG TAB PO SCH (06:02)
[2018-10-12] MEDS: Pantoprazole 40 mg EC Tab PO SCH (06:02)
[2018-10-12 07:24] LABS: BASO # 0.03 K/mm3 (0.0-2.0); BASO % 0.2 % (0.0-3.0); EOS # 0.1 (0.0-0.7); EOS % 0.6 % (1.5-5.0); HEMOGLOBIN 10.7 g/dL (14.0-18.0); LYMPH # 0.9 (1.2-3.4); LYMPH % 6.7 % (22.0-35.0); MEAN CELL VOLUME 98.2 fl (80.0-105.0); MEAN CORPUSCULAR HEMOGLOBIN 32.9 pg (25.0-35.0); MEAN CORPUSCULAR HGB CONC 33.5 g/dl (31.0-37.0); MEAN PLATELET VOLUME 11.5 fl (7.0-11.0); MONO # 1.6 (0.1-0.6); MONO % 12.2 % (1.0-6.0); RBC 3.25 10^6/uL (3.5-6.1); RED CELL DISTRIBUTION WIDTH 13.7 % (11.5-14.5); WHITE BLOOD COUNT 13.3 10^3/uL (4.5-11.0)
[2018-10-12 07:54] LABS: CALCIUM 8.7 mg/dL (8.4-10.5)
[2018-10-12] MEDS: Cefepime 1gm in NS 100ml 1 GM/100 ML BAG IVPB SCH (08:08)
[2018-10-12] MEDS: Budesonide 0.5 mg/2 ml Inhal Susp UD IH SCH ×2 (08:09→19:42)
[2018-10-12] MEDS: Insulin Reg-LOW-Coverage SC SCH ×4 (08:10→22:05)
--- NOTE | 2018-10-12 08:30 | PN ---
DATE: 10/12/2018 PULMONARY NOTE SUBJECTIVE: The patient appears much more comfortable this morning. He is not short of breath at rest. OBJECTIVE: VITAL SIGNS: Temperature is 97.8, pulse 81, respiratory rate 18/20, blood pressure 117/60. Oxygen saturation on nasal cannula - 98%. Oxygen saturation on BIPAP - 100%. HEENT: Normocephalic, atraumatic. NECK: No JVD. CARDIOVASCULAR: Systolic ejection murmur at the lower left sternal border. No S3 gallop. LUNGS: Improved breath sounds at the bases. Less rhonchi. No wheezing this morning. EXTREMITIES: Positive for mild edema. No cyanosis, no clubbing. Calves are nontender to palpation. GI: Abdomen is soft, nontender and nondistended. Bowel sounds are positive. SKIN: No acute rash. NEUROLOGIC: Exam limited at the present time. IMPRESSION: 1. Acute bronchitis. 2. Advanced chronic obstructive pulmonary disease. 3. Chronic atrial fibrillation. 4. Mild anemia. 5. Renal insufficiency. Plan: The patient appears much more comfortable this morning. He is not short of breath at rest. He does state to feeling better overall. I did discuss the case to night nurse at length. The night nurse stated that the patient had a very good night. On physical exam, there is definitely less bronchospasm noted. In addition, the alveolar-arterial gradient is also much less. I will continue the current nebulizer treatments and decrease the intravenous steroids this morning. Inputs by Renal and Infectious Disease are also noted. Clinical status of the patient is significantly improved - compared to his initial presentation. However, given the above, the future status/prognosis for this patient does remain guarded. I will discuss the above with Dr. Ramon. Umair Kauffman MD [facility]
[2018-10-12] MEDS: MethylPREDNISolone 40 mg Vial IVP SCH ×2 (10:01→22:07)
--- NOTE | 2018-10-12 13:39 | PN ---
DATE: 10/12/2018 SUBJECTIVE: The patient is seen earlier today in 264, bed 2. No fevers and no chills. No toxic. Comfortable on exam. PHYSICAL EXAMINATION: VITAL SIGNS: Temperature is 97, blood pressure is 102/40, and respiratory rate of 18. HEENT: Unremarkable. NECK: Supple. LUNGS: Decreased breath sounds. HEART: Normal S1 and S2. ABDOMEN: Soft and nontender. LABORATORY DATA: Gram-positive cocci. Urine culture and blood culture are negative. Laboratory examination reveals a white count of 13,300 and the patient is on doxycycline, cefepime, and Solu-Medrol. ASSESSMENT AND PLAN: A 73-year-old male with chronic obstructive pulmonary disease, atrial fibrillation, diabetes, congestive heart failure, renal insufficiencies, hypothyroidism, psoriasis, and Gram-positive cocci in the urine, most likely a colonizer in a the patient with acute bronchitis and hypoglycemia. On cefepime and doxycycline. Workup in progress. Dr. Kauffman's note from this morning is appreciated. Teddy Hazel MD
--- NOTE | 2018-10-12 19:23 | PN ---
DATE: 10/12/2018 SUBJECTIVE: The patient was seen this Sunday morning in Room 264, Bed 2. Resting comfortably in bed. Awake, alert, and clear. In no acute distress. He reports he is beginning to be eating. Sugars are better controlled, in fact, and trending to run a little high. Those were done at home. PHYSICAL EXAMINATION LUNGS: Show good aeration, right and left and are relatively clear. HEART: Non-tachycardic. LABORATORY DATA: With his most recent EKG showing a sinus rhythm, yet having a history of intermittent AFib from 10/2017. White blood cell count is down to 13.3. BUN and creatinine are remaining elevated slightly above his baseline in the range upon admission of 66 and 3.1 today. He is passed with Infectious Disease, Cardiopulmonary and Renal, notes are also appreciated. The patient is doing well on current medication list. CURRENT MEDICATIONS: Antibiotics include Cefepime and steroids 30 mg IV every 12 hours per Pulmonary. ASSESSMENT AND PLAN: We will need to follow up. Hopefully we will taper the steroids soon. I asked the nurses to help the patient out of bed in a chair. I explained to him that we will begin physical therapy tomorrow and through the course of our stay. Dannie Ramon MD
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
--- NOTE | 2018-10-13 00:08 | PN ---
DATE: 10/12/2018 SUBJECTIVE: The patient is seen. Lying in bed. He is awake, he is alert, he is comfortable. He denies any pain. He denies any shortness of breath. He denies any nausea or vomiting. PHYSICAL EXAMINATION: GENERAL: Elderly male lying in bed. Vital signs: Blood pressure 107/47, heart rate 111, respiratory rate 18, temperature 98. HEENT: Normocephalic, atraumatic, positive pallor. NECK: Supple, no JVD. LUNGS: Bilateral equal entry, bilateral equal expansion. CARDIAC: S1 and S2, regular rate and rhythm, no murmur, no rub. ABDOMEN: Obese, distended, soft, nontender, bowel sounds present. EXTREMITIES: No lower extremity edema. INTAKE AND OUTPUT: 2136/1940. LABORATORY DATA: WBC 13, hemoglobin 10.7, hematocrit 32, platelets 160. Sodium 136, potassium 3.9, chloride 103, CO2 of 21, BUN 66, creatinine 3.1, glucose 240, calcium 8.7. Urine culture, gram-positive cocci. CURRENT MEDICATIONS: Doxycycline 100 every 12 hours, DuoNeb, Eliquis 2.5 b.i.d., Flomax 0.4, Lasix on hold, Lopressor 25 b.i.d., Maxipime 1 g daily, Protonix, Solu-Medrol 30 IV every 12 hours, Synthroid 100, IV fluids discontinued. ASSESSMENT: 1. Severe sepsis, likely genitourinary source. 2. Acute kidney injury, superimposed on chronic kidney disease stage 3/4. 3. Non-insulin dependent diabetes mellitus. 4. Labile glucose. 5. Hyperkalemia, resolved. PLAN: 1. Monitor daily electrolytes. 2. Continue antibiotics as per ID recommendations. 3. Dose all antibiotics for creatinine clearance 10 to 30 mL/minute. 4. Avoid nephrotoxins. 5. Renal ultrasound from August, unremarkable. Belem Campbell MD
[2018-10-13] MEDS: Albuterol-Ipratrop 3 mg / 0.5 (3 ml) UD IH SCH ×4 (01:15→19:58)
[2018-10-13] MEDS: Levothyroxine 100 MCG TAB PO SCH (05:17)
[2018-10-13] MEDS: Pantoprazole 40 mg EC Tab PO SCH (05:17)
[2018-10-13] MEDS: Budesonide 0.5 mg/2 ml Inhal Susp UD IH SCH ×2 (08:08→19:58)
[2018-10-13] MEDS: Cefepime 1gm in NS 100ml 1 GM/100 ML BAG IVPB SCH (08:16)
[2018-10-13] MEDS: Insulin Reg-LOW-Coverage SC SCH ×4 (08:16→21:17)
[2018-10-13] MEDS: MethylPREDNISolone 40 mg Vial IVP SCH ×3 (09:17→21:20)
--- NOTE | 2018-10-13 11:37 | PN ---
DATE: 10/13/2018 PULMONARY NOTE SUBJECTIVE: The patient appears comfortable this morning. He is not short of breath at rest. OBJECTIVE: VITAL SIGNS: Temperature is 98.1, pulse 86, respirations 18, blood pressure 107/47. Oxygen saturation on nasal cannula is 98%. HEENT: Normocephalic, atraumatic. NECK: No JVD. CARDIOVASCULAR: Systolic ejection murmur at the lower left sternal border. No S3 gallop. LUNGS: Minimal/less rhonchi. No wheezing. EXTREMITIES: Positive for mild edema. No cyanosis or clubbing. Calves are nontender to palpation. GASTROINTESTINAL: Abdomen is soft, nontender, and nondistended. Bowel sounds are positive. SKIN: No acute rash. NEUROLOGIC: Limited at the present time. IMPRESSION: 1. Acute bronchitis. 2. Advanced chronic obstructive pulmonary disease. 3. Chronic atrial fibrillation. 4. Mild anemia. 5. Renal insufficiency. PLAN: The patient appears comfortable this morning. He is not short of breath at rest. He does state to feeling much better overall. I did discuss the case to night nurse at length. The night nurse stated the patient had a good night. On physical exam, there is certainly less bronchospasm noted. In addition, the alveolar-arterial gradient is also less. I will continue the current nebulizer treatments and low-dose intravenous steroids (decreased yesterday) for now. The patient remains on antibiotic therapy - as per Infectious Disease. There are no temperatures noted. The leukocytosis is resolving. Clinical status of the patient is significantly improved - compared to the initial presentation. However, given the above, the future status/prognosis for this patient does remain guarded. I will discuss the above with the attending physician. Umair Kauffman MD MTDD
--- NOTE | 2018-10-13 15:59 | CP.PCM.PN ---
Subjective - Date & Time of Evaluation Date of Evaluation: 10/13/18 Time of Evaluation: 09:25 - Subjective Subjective: Breathing a bit better, no fevers, not in distress. Objective - Vital Signs/Intake and Output Vital Signs (last 24 hours): Temp Pulse Resp BP Pulse Ox 98.1 F 100 H 18 112/68 97 10/12/18 18:00 10/13/18 09:18 10/12/18 18:00 10/13/18 09:18 10/12/18 08:50 Intake and Output: 10/13/18 10/13/18 06:59 18:59 Intake Total 120 Output Total 800 Balance -680 - Medications Medications: Current Medications Albuterol/Ipratropium (Duoneb 3 Mg/0.5 Mg (3 Ml) Ud) 3 ml IH Q2H PRN PRN Reason: Shortness of Breath Albuterol/Ipratropium (Duoneb 3 Mg/0.5 Mg (3 Ml) Ud) 3 ml IH [id number] [facility] Last Admin: 10/13/18 08:08 Dose: 3 ml Apixaban (Eliquis) 2.5 mg PO BID [facility]; Protocol Last Admin: 10/13/18 09:17 Dose: 2.5 mg Budesonide (Pulmicort Respules) 0.5 mg IH [id number] [facility] Last Admin: 10/13/18 08:08 Dose: 0.5 mg Dextrose (Dextrose 50% Inj) 0 ml IV STAT PRN; Protocol PRN Reason: Hypoglycemia Protocol Doxycycline Hyclate (Doryx) 100 mg PO Q12 [facility]; Protocol Stop: 10/21/18 22:01 Last Admin: 10/13/18 09:17 Dose: 100 mg Furosemide (Lasix) 40 mg IVP DAILY [facility] Last Admin: 10/11/18 11:14 Dose: 40 mg Dextrose (Dextrose 5% In Water 1000 Ml) 1,000 mls @ 0 mls/hr IV .Q0M PRN; Protocol PRN Reason: Hypoglycemia Protocol Cefepime HCl (Maxipime 1gm) 1 gm in 100 mls @ 100 mls/hr IVPB Q24H [facility]; Protocol Last Admin: 10/13/18 08:16 Dose: 100 mls/hr Insulin Human Regular (Humulin R Low) 0 units SC ACHS [facility]; Protocol Last Admin: 10/13/18 08:16 Dose: 3 units Levothyroxine Sodium (Synthroid) 100 mcg PO 0600 [facility] Last Admin: 10/13/18 05:17 Dose: 100 mcg Methylprednisolone (Solu-Medrol) 30 mg IVP Q12 [facility] Last Admin: 10/13/18 09:17 Dose: 30 mg Metoprolol Tartrate (Lopressor) 25 mg PO BID [facility] Last Admin: 10/13/18 09:18 Dose: 25 mg Pantoprazole Sodium (Protonix Ec Tab) 40 mg PO 0600 [facility] Last Admin: 10/13/18 05:17 Dose: 40 mg Tamsulosin HCl (Flomax) 0.4 mg PO DAILY [facility] Last Admin: 10/13/18 09:18 Dose: 0.4 mg - Labs Labs: 10/12/18 07:00 10/12/18 07:00 PT 17.8 SECONDS (9.4-12.5) H 10/10/18 23:37 INR 1.60 10/10/18 23:37 APTT 46.0 Seconds (26.9-38.3) H 10/10/18 23:37 - Constitutional Appears: Chronically Ill - Head Exam Head Exam: NORMAL INSPECTION - Respiratory Exam Respiratory Exam: Decreased Breath Sounds - Cardiovascular Exam Cardiovascular Exam: +S1, +S2 - GI/Abdominal Exam GI & Abdominal Exam: Soft. absent: Tenderness Assessment and Plan - Assessment and Plan (Free Text) Plan: Assessment probable acute exacerbation of COPD and CHF S/P right lower lobe community-acquired pneumonia history of infected sacral decubitus ulcer with probable osteomyelitis, S/P debridement CAD with chronic CHF DM HTN COPD hypothyroidism psoriasis S/P treatment for HCAP Plan on Cefepime and Doxycycline day 3 of 3-5 days will continue to monitor clinically
--- NOTE | 2018-10-13 19:27 | PN ---
DATE: 10/13/2018 DAILY PROGRESS NOTE SUBJECTIVE: The patient was seen this Sunday morning in room 264, bed 2. reporting that he has a relatively good day yesterday and this morning. PHYSICAL EXAMINATION: LUNGS: Shows good aeration. Respiratory effort is wheezing. EXTREMITIES: Show no edema. He was out of bed to chair yesterday and he is progressing nicely. IMPRESSION: 1. Chronic obstructive pulmonary disease. 2. Chronic renal insufficiency with some components of acute flare/exacerbation. 3. Coronary artery disease. 4. Status post traumatic brain injury many years ago. PLAN: In view of improved clinical condition, we will begin to taper steroids. We will discuss with Pulmonary and continue to follow closely. Dannie Ramon MD
[2018-10-14] MEDS: Albuterol-Ipratrop 3 mg / 0.5 (3 ml) UD IH SCH ×4 (01:19→19:52)
[2018-10-14] MEDS: Pantoprazole 40 mg EC Tab PO SCH (06:25)
[2018-10-14] MEDS: Levothyroxine 100 MCG TAB PO SCH (06:25)
[2018-10-14 06:37] LABS: BASO # 0.01 K/mm3 (0.0-2.0); BASO % 0.1 % (0.0-3.0); HEMOGLOBIN 10.2 g/dL (14.0-18.0); LYMPH # 0.4 (1.2-3.4); LYMPH % 3.9 % (22.0-35.0); MEAN CELL VOLUME 99.7 fl (80.0-105.0); MEAN CORPUSCULAR HEMOGLOBIN 32.5 pg (25.0-35.0); MEAN CORPUSCULAR HGB CONC 32.6 g/dl (31.0-37.0); MEAN PLATELET VOLUME 11.7 fl (7.0-11.0); MONO # 0.6 (0.1-0.6); MONO % 5.5 % (1.0-6.0); PLATELET COUNT 190 10^3/uL (120.0-450.0); RBC 3.14 10^6/uL (3.5-6.1); RED CELL DISTRIBUTION WIDTH 13.9 % (11.5-14.5); WHITE BLOOD COUNT 11.2 10^3/uL (4.5-11.0)
[2018-10-14 07:24] LABS: CALCIUM 9.1 mg/dL (8.4-10.5)
[2018-10-14] MEDS: Budesonide 0.5 mg/2 ml Inhal Susp UD IH SCH ×2 (08:05→19:52)
[2018-10-14] MEDS: Cefepime 1gm in NS 100ml 1 GM/100 ML BAG IVPB SCH (08:17)
[2018-10-14] MEDS: Insulin Reg-LOW-Coverage SC SCH ×4 (08:17→21:26)
[2018-10-14 08:21] LABS: LYMPHOCYTE 4 % (22.0-35.0); MONOCYTE 6 % (1.0-6.0); NEUTROPHIL 90 % (50.0-70.0); PLATELET ESTIMATE NORMAL (NORMAL)
--- NOTE | 2018-10-14 09:38 | PN ---
DATE: 10/14/2018 PULMONARY NOTE SUBJECTIVE: The patient appears comfortable this morning. He is not short of breath at rest. PHYSICAL EXAMINATION: VITAL SIGNS: Temperature is 97.1, pulse 63, respirations 18/20, blood pressure 118/59. Oxygen saturation on BiPAP - 100%. Oxygen saturation on nasal cannula - 98%. HEENT: Normocephalic, atraumatic. No JVD. CARDIOVASCULAR: Systolic ejection murmur at the lower left sternal border. No S3 gallop. LUNGS: Minimal rhonchi. No wheezing. GI: Abdomen is soft, nontender and nondistended. Bowel sounds are positive. EXTREMITIES: Mild edema. No cyanosis, no clubbing. Calves are nontender to palpation. SKIN: No acute rash. NEUROLOGIC: Exam limited at the present time. IMPRESSION: 1. Acute bronchitis. 2. Advanced chronic obstructive pulmonary disease. 3. Chronic atrial fibrillation. 4. Mild anemia. 5. Renal insufficiency. PLAN: The patient appears quite comfortable this morning. He is not short of breath at rest. He does state to feeling much better overall. I discussed case with night nurse at length. The night nurse stated the patient had a good night. On physical exam, the patient's bronchospasm continues to resolve. In addition, the alveolar-arterial gradient also continues to resolve. I will continue the current nebulizer treatments and very low-dose intravenous steroids (decreased by Dr. Ramon yesterday) for now. The patient remains on antibiotic therapy. There are no temperatures noted. The leukocytosis has primarily resolved. Clinical status of the patient has significantly improved - compared to the initial presentation. However, given the above, the future status/prognosis for this patient does remain guarded. I will discuss the above with the attending physician. Uamir Kauffman MD [facility]
[2018-10-14] MEDS: MethylPREDNISolone 40 mg Vial IVP SCH ×2 (09:45→21:25)
--- NOTE | 2018-10-14 11:48 | CP.PCM.APN ---
Subjective - Date & Time of Evaluation Date of Evaluation: 10/14/18 Time of Evaluation: 10:00 - Subjective Subjective: pt seen and examined at bedside pt offers no complaints, states he feels much better denies sob, denies pain Review of Systems - Review of Systems All systems: reviewed and no additional remarkable complaints except Objective - Vital Signs/Intake and Output Vital Signs (last 24 hours): Temp Pulse Resp BP Pulse Ox 97.1 F L 95 H 20 119/53 L 100 10/14/18 06:00 10/14/18 09:46 10/14/18 06:00 10/14/18 09:46 10/14/18 06:00 Intake and Output: 10/14/18 10/14/18 06:59 18:59 Intake Total 1207 Output Total 1300 Balance -93 - Medications Medications: Current Medications Albuterol/Ipratropium (Duoneb 3 Mg/0.5 Mg (3 Ml) Ud) 3 ml IH Q2H PRN PRN Reason: Shortness of Breath Albuterol/Ipratropium (Duoneb 3 Mg/0.5 Mg (3 Ml) Ud) 3 ml IH [id number] [facility] Last Admin: 10/14/18 08:05 Dose: 3 ml Apixaban (Eliquis) 2.5 mg PO BID [facility]; Protocol Last Admin: 10/14/18 09:46 Dose: 2.5 mg Budesonide (Pulmicort Respules) 0.5 mg IH [id number] [facility] Last Admin: 10/14/18 08:05 Dose: 0.5 mg Dextrose (Dextrose 50% Inj) 0 ml IV STAT PRN; Protocol PRN Reason: Hypoglycemia Protocol Doxycycline Hyclate (Doryx) 100 mg PO Q12 [facility]; Protocol Stop: 10/21/18 22:01 Last Admin: 10/14/18 09:46 Dose: 100 mg Furosemide (Lasix) 40 mg IVP DAILY [facility] Last Admin: 10/11/18 11:14 Dose: 40 mg Glipizide (Glucotrol) 5 mg PO DAILY [facility] Last Admin: 10/14/18 09:46 Dose: 5 mg Dextrose (Dextrose 5% In Water 1000 Ml) 1,000 mls @ 0 mls/hr IV .Q0M PRN; Protocol PRN Reason: Hypoglycemia Protocol Cefepime HCl (Maxipime 1gm) 1 gm in 100 mls @ 100 mls/hr IVPB Q24H [facility]; Protocol Last Admin: 10/14/18 08:17 Dose: 100 mls/hr Insulin Human Regular (Humulin R Low) 0 units SC ACHS [facility]; Protocol Last Admin: 10/14/18 08:17 Dose: 3 units Levothyroxine Sodium (Synthroid) 100 mcg PO 0600 [facility] Last Admin: 10/14/18 06:25 Dose: 100 mcg Metformin HCl (Glucophage) 500 mg PO BID [facility] Last Admin: 10/14/18 09:46 Dose: 500 mg Methylprednisolone (Solu-Medrol) 10 mg IVP Q12 [facility] Last Admin: 10/14/18 09:45 Dose: 10 mg Metoprolol Tartrate (Lopressor) 25 mg PO BID [facility] Last Admin: 10/14/18 09:46 Dose: 25 mg Pantoprazole Sodium (Protonix Ec Tab) 40 mg PO 0600 [facility] Last Admin: 10/14/18 06:25 Dose: 40 mg Tamsulosin HCl (Flomax) 0.4 mg PO DAILY [facility] Last Admin: 10/14/18 09:46 Dose: 0.4 mg - Labs Labs: 10/14/18 06:10 10/14/18 06:10 PT 17.8 SECONDS (9.4-12.5) H 10/10/18 23:37 INR 1.60 10/10/18 23:37 APTT 46.0 Seconds (26.9-38.3) H 10/10/18 23:37 - Constitutional Appears: No Acute Distress - Head Exam Head Exam: NORMOCEPHALIC - Eye Exam Pupil Exam: NORMAL ACCOMODATION - Respiratory Exam Respiratory Exam: Decreased Breath Sounds, NORMAL BREATHING PATTERN - Cardiovascular Exam Cardiovascular Exam: +S1, +S2 - GI/Abdominal Exam GI & Abdominal Exam: Soft - Extremities Exam Extremities Exam: Normal Inspection - Neurological Exam Neurological Exam: Alert, Awake, Oriented x3 - Psychiatric Exam Psychiatric exam: Normal Mood - Skin Skin Exam: Dry, Intact Assessment and Plan - Assessment and Plan (Free Text) Plan: 73 yr old white male with pmh sig for afib on eliquis, copd, chf, DM, RI, Hypothyroidism, who presented to the ED with c/o SOB x 1 day duration found to be hypoxic with met . acidosis and per ED report had o2 sat in the 80s initially, elevated lactate 3.4 on admission, leukocytosis, elevated bnp, pt requiring BIPAP for adequate oxygenation now admitted for further eval and treatment for HCAP with ID and pul consultation as well as renal consultation for PUNEET and metabolic acidosis with ? resp compensation. #CAP iv antibiotics therapy pulmonary and ID consultaiton antibiotics therapy noted per ID with Maxipine and Doxy # acute bronchitis pul notes reviewed # gr positive cocci UTI less than 10,000 #advanced COPD exacerbation BIPAP therapy duoneb regimen steroid taper in progress , now 10mg q12 hrs #hypoglycemia Bs noted 37, less than 20 on blood work pt with Dextrose 5% in NS at 100 in setting of sepsis/ infectious process # Puneet on CKD Renal consultation noted Urine studies noted Dr Campbell notes reviewed and recommendations noted # chf exacerbation iV lasix ( held due top worsening renal function) Strict I/O # afib Eliquis regimen pt with hyperkalemia this am s/p kayexalate repeating K at 1pm Called TCU re : Eval pending, discuss clinical picture with porter sample case will continue to follow BPCI/TIC - BPCIA/TIC Educated pt/family on BPCIA/CIR/Med to Bed Programs: Yes Flyers given, including CMS Beneficiary letter: Yes Pt/family verbalized understanding & agreed to program: Yes
--- NOTE | 2018-10-14 13:37 | CP.PCM.PN ---
Subjective - Date & Time of Evaluation Date of Evaluation: 10/14/18 Time of Evaluation: 10:50 - Subjective Subjective: No fevers, not in distress, breathing better, improved cough. Objective - Vital Signs/Intake and Output Vital Signs (last 24 hours): Temp Pulse Resp BP Pulse Ox 98.1 F 74 19 115/54 L 97 10/13/18 12:00 10/13/18 14:00 10/13/18 12:00 10/13/18 12:00 10/12/18 08:50 Intake and Output: 10/13/18 10/13/18 06:59 18:59 Intake Total 120 Output Total 800 Balance -680 - Medications Medications: Current Medications Albuterol/Ipratropium (Duoneb 3 Mg/0.5 Mg (3 Ml) Ud) 3 ml IH Q2H PRN PRN Reason: Shortness of Breath Albuterol/Ipratropium (Duoneb 3 Mg/0.5 Mg (3 Ml) Ud) 3 ml IH [id number] [facility] Last Admin: 10/13/18 13:38 Dose: 3 ml Apixaban (Eliquis) 2.5 mg PO BID [facility]; Protocol Last Admin: 10/13/18 09:17 Dose: 2.5 mg Budesonide (Pulmicort Respules) 0.5 mg IH [id number] [facility] Last Admin: 10/13/18 08:08 Dose: 0.5 mg Dextrose (Dextrose 50% Inj) 0 ml IV STAT PRN; Protocol PRN Reason: Hypoglycemia Protocol Doxycycline Hyclate (Doryx) 100 mg PO Q12 [facility]; Protocol Stop: 10/21/18 22:01 Last Admin: 10/13/18 09:17 Dose: 100 mg Furosemide (Lasix) 40 mg IVP DAILY [facility] Last Admin: 10/11/18 11:14 Dose: 40 mg Glipizide (Glucotrol) 5 mg PO DAILY [facility] Last Admin: 10/13/18 11:38 Dose: 5 mg Dextrose (Dextrose 5% In Water 1000 Ml) 1,000 mls @ 0 mls/hr IV .Q0M PRN; Protocol PRN Reason: Hypoglycemia Protocol Cefepime HCl (Maxipime 1gm) 1 gm in 100 mls @ 100 mls/hr IVPB Q24H [facility]; Protocol Last Admin: 02/10/19 08:16 Dose: 100 mls/hr Insulin Human Regular (Humulin R Low) 0 units SC ACHS [facility]; Protocol Last Admin: 10/13/18 11:38 Dose: 10 units Levothyroxine Sodium (Synthroid) 100 mcg PO 0600 [facility] Last Admin: 10/13/18 05:17 Dose: 100 mcg Metformin HCl (Glucophage) 500 mg PO BID [facility] Last Admin: 10/13/18 11:38 Dose: 500 mg Methylprednisolone (Solu-Medrol) 10 mg IVP Q12 [facility] Last Admin: 10/13/18 11:00 Dose: Not Given Metoprolol Tartrate (Lopressor) 25 mg PO BID [facility] Last Admin: 10/13/18 09:18 Dose: 25 mg Pantoprazole Sodium (Protonix Ec Tab) 40 mg PO 0600 [facility] Last Admin: 10/13/18 05:17 Dose: 40 mg Tamsulosin HCl (Flomax) 0.4 mg PO DAILY [facility] Last Admin: 10/13/18 09:18 Dose: 0.4 mg - Labs Labs: 10/12/18 07:00 10/12/18 07:00 PT 17.8 SECONDS (9.4-12.5) H 10/10/18 23:37 INR 1.60 10/10/18 23:37 APTT 46.0 Seconds (26.9-38.3) H 10/10/18 23:37 - Constitutional Appears: Chronically Ill - Head Exam Head Exam: NORMAL INSPECTION - Respiratory Exam Respiratory Exam: Decreased Breath Sounds - Cardiovascular Exam Cardiovascular Exam: +S1, +S2 - GI/Abdominal Exam GI & Abdominal Exam: Soft. absent: Tenderness Assessment and Plan - Assessment and Plan (Free Text) Plan: Assessment probable acute exacerbation of COPD and CHF, clinically improving S/P right lower lobe community-acquired pneumonia history of infected sacral decubitus ulcer with probable osteomyelitis, S/P debridement CAD with chronic CHF DM HTN COPD hypothyroidism psoriasis S/P treatment for HCAP Plan on Cefepime and Doxycycline day 4 of 3-5 days will continue to monitor clinically
--- NOTE | 2018-10-14 18:26 | PN ---
DATE: 10/14/2018 SUBJECTIVE: The patient is seen lying in bed. He is awake. He is alert. He is comfortable. He does not appear to be in any kind of distress. OBJECTIVE: VITAL SIGNS: Blood pressure 126/44, heart rate 72, respiratory rate 20, and temperature 97.9. HEENT: Normocephalic and atraumatic. Positive pallor. NECK: Supple. No JVD. LUNGS: Bilateral equal air entry, bilateral equal expansion. CARDIAC: S1 and S2. Regular rate and rhythm. No murmur. No rub. ABDOMEN: Obese, distended, soft, and nontender. Bowel sounds present. EXTREMITIES: No lower extremity edema. INTAKE AND OUTPUT: 1200/1300. LABORATORY DATA: WBC 11, hemoglobin 10.2, hematocrit 31, and platelets 190. Sodium 134, potassium 5.6, chloride 105, CO2 of 20, BUN 68, creatinine 2.7, glucose 271, and calcium 9.1. Urine culture, Gram-positive cocci. CURRENT MEDICATIONS: Doxycycline 100 every 12 hours, DuoNeb, Eliquis 2.5 b.i.d., Flomax 0.4, Glucophage 500 b.i.d., glipizide 5, Lasix 40 IV daily on hold, Lopressor 25 b.i.d., Maxipime 1 g daily, Protonix, Solu-Medrol, and Synthroid. ASSESSMENT: 1. Acute kidney injury superimposed on chronic kidney disease stage IV, renal parameters slowly improving. 2. Hyperkalemia, likely partly related to hyperglycemia and extracellular shift of potassium. 3. Sepsis/urinary tract infection. 4. Noninsulin-dependent diabetes mellitus. 5. Hypertension. 6. Dementia? PLAN: 1. Continue to hold Lasix. 2. Continue antibiotics as per ID recommendations. 3. Restrict use of Kayexalate. 4. Needs tighter glycemic control. Belem Campbell MD
[2018-10-14 23:44] VITALS: O2SAT 97
[2018-10-15] MEDS: Albuterol-Ipratrop 3 mg / 0.5 (3 ml) UD IH SCH ×3 (01:37→13:56)
[2018-10-15] MEDS: Pantoprazole 40 mg EC Tab PO SCH (05:23)
[2018-10-15] MEDS: Levothyroxine 100 MCG TAB PO SCH (05:23)
[2018-10-15] MEDS: Insulin Reg-LOW-Coverage SC SCH ×3 (07:49→17:45)
[2018-10-15] MEDS: Cefepime 1gm in NS 100ml 1 GM/100 ML BAG IVPB SCH (07:49)
[2018-10-15] MEDS: Budesonide 0.5 mg/2 ml Inhal Susp UD IH SCH (08:05)
--- NOTE | 2018-10-15 08:24 | PN ---
DATE: 10/15/2018 PULMONARY NOTE SUBJECTIVE: The patient appears very comfortable this morning. He is not short of breath at rest. PHYSICAL EXAMINATION: VITALS: Temperature is 97.8, pulse 66, respirations 19, blood pressure 121/60. Oxygen saturation on BiPAP is 97%. HEENT: Normocephalic, atraumatic. No JVD. CARDIOVASCULAR: Systolic ejection murmur at the lower left sternal border. No S3 gallop. LUNGS: Clear bilaterally. EXTREMITIES: Mild edema. No cyanosis. No clubbing. Calves are nontender to palpation. GASTROINTESTINAL: Abdomen is soft, nontender, and nondistended. Bowel sounds are positive. SKIN: No acute rash. NEUROLOGIC: Exam limited at the present time. IMPRESSION: 1. Acute bronchitis. 2. Advanced chronic obstructive pulmonary disease. 3. Chronic atrial fibrillation. 4. Mild anemia. 5. Renal insufficiency. PLAN: The patient appears very comfortable this morning. He is not short of breath at rest. He does state to feeling much better overall. I did discuss the case to night nurse at length. The night nurse stated that the patient had a very good night. On physical exam, the patient's lungs are now clear. In addition, there is no significant alveolar-arterial gradient. I will continue the current nebulizer treatments and change to oral steroids this morning. The patient remains on antibiotic therapy - as per Infectious Disease. Temperatures have resolved. The leukocytosis has primarily resolved. Clinical status of the patient is significantly improved - compared to the initial presentation. However, given the above, the future status/prognosis for this patient does remain guarded. I will discuss the above with the attending physician. Umair Kauffman MD [facility]
--- NOTE | 2018-10-15 12:05 | PN ---
DATE: 10/14/2018 DAILY PROGRESS NOTE SUBJECTIVE: The patient is a 73-year-old male with a history of traumatic brain injury after a fall from a roof many years ago. He has history of COPD, ags-lbhtyyl-xammyjryg diabetes mellitus, hypothyroidism, psoriasis to the arms and legs who was hospitalized at a subacute care facility until about two weeks ago after being treated for pneumonia and septic shock and a decubitus ulcer. He developed sudden onset of shortness of breath, was brought to the emergency room, was evaluated and admitted. The patient has also known to have chronic renal failure with a creatinine between 2 and 4. The patient was admitted on 10/11/2018. During his hospital stay, he was followed by Dr. Spencer, the Infectious Disease specialist; Dr. Kauffman, the [employer]; and Dr. Campbell, the Selling Manager. When seen today, the patient is doing well. He is in good spirits. He is feeling well. Offers no complaints. I explained to him that we will be tapering down his steroids and expecting him to start physical therapy. The patient showed interest in going to the Transitional Care Unit for additional physical therapy. MEDICATIONS: Current list of medications includes; doxycycline 100 mg p.o. every 12 hours, DuoNeb nebulizer treatment, Eliquis 2.5 mg twice a day, Flomax, Glucophage, Glucotrol, Lasix, Lopressor, and Maxipime 1 g IV every 24 hours. He is receiving prednisone 30 mg daily, Protonix, Pulmicort Respules and he is on Synthroid. We will continue to follow the patient closely. Nii Ramon MD
--- NOTE | 2018-10-15 14:32 | CP.PCM.PN ---
Subjective - Date & Time of Evaluation Date of Evaluation: 10/15/18 Time of Evaluation: 09:15 - Subjective Subjective: Comfortable in bed, afebrile. Breathing well at rest. Objective - Vital Signs/Intake and Output Vital Signs (last 24 hours): Temp Pulse Resp BP Pulse Ox 97.9 F 72 20 126/44 L 100 10/14/18 12:00 10/14/18 12:00 10/14/18 12:00 10/14/18 12:00 10/14/18 06:00 Intake and Output: 10/14/18 10/14/18 06:59 18:59 Intake Total 1207 Output Total 1300 Balance -93 - Medications Medications: Current Medications Albuterol/Ipratropium (Duoneb 3 Mg/0.5 Mg (3 Ml) Ud) 3 ml IH Q2H PRN PRN Reason: Shortness of Breath Albuterol/Ipratropium (Duoneb 3 Mg/0.5 Mg (3 Ml) Ud) 3 ml IH [id number] [facility] Last Admin: 10/14/18 08:05 Dose: 3 ml Apixaban (Eliquis) 2.5 mg PO BID [facility]; Protocol Last Admin: 10/14/18 09:46 Dose: 2.5 mg Budesonide (Pulmicort Respules) 0.5 mg IH [id number] [facility] Last Admin: 10/14/18 08:05 Dose: 0.5 mg Dextrose (Dextrose 50% Inj) 0 ml IV STAT PRN; Protocol PRN Reason: Hypoglycemia Protocol Doxycycline Hyclate (Doryx) 100 mg PO Q12 [facility]; Protocol Stop: 10/21/18 22:01 Last Admin: 10/14/18 09:46 Dose: 100 mg Furosemide (Lasix) 40 mg IVP DAILY [facility] Last Admin: 10/11/18 11:14 Dose: 40 mg Glipizide (Glucotrol) 5 mg PO DAILY [facility] Last Admin: 10/14/18 09:46 Dose: 5 mg Dextrose (Dextrose 5% In Water 1000 Ml) 1,000 mls @ 0 mls/hr IV .Q0M PRN; Prot ocol PRN Reason: Hypoglycemia Protocol Cefepime HCl (Maxipime 1gm) 1 gm in 100 mls @ 100 mls/hr IVPB Q24H [facility]; Protocol Last Admin: 10/14/18 08:17 Dose: 100 mls/hr Insulin Human Regular (Humulin R Low) 0 units SC ACHS [facility]; Protocol Last Admin: 10/14/18 11:39 Dose: 3 units Levothyroxine Sodium (Synthroid) 100 mcg PO 0600 [facility] Last Admin: 10/14/18 06:25 Dose: 100 mcg Metformin HCl (Glucophage) 500 mg PO BID [facility] Last Admin: 10/14/18 09:46 Dose: 500 mg Methylprednisolone (Solu-Medrol) 10 mg IVP Q12 [facility] Last Admin: 10/14/18 09:45 Dose: 10 mg Metoprolol Tartrate (Lopressor) 25 mg PO BID [facility] Last Admin: 10/14/18 09:46 Dose: 25 mg Pantoprazole Sodium (Protonix Ec Tab) 40 mg PO 0600 [facility] Last Admin: 10/14/18 06:25 Dose: 40 mg Tamsulosin HCl (Flomax) 0.4 mg PO DAILY [facility] Last Admin: 10/14/18 09:46 Dose: 0.4 mg - Labs Labs: 10/14/18 06:10 10/14/18 13:00 PT 17.8 SECONDS (9.4-12.5) H 10/10/18 23:37 INR 1.60 10/10/18 23:37 APTT 46.0 Seconds (26.9-38.3) H 10/10/18 23:37 - Constitutional Appears: Chronically Ill - Head Exam Head Exam: NORMAL INSPECTION - Respiratory Exam Respiratory Exam: Decreased Breath Sounds - Cardiovascular Exam Cardiovascular Exam: +S1, +S2 - GI/Abdominal Exam GI & Abdominal Exam: Soft. absent: Tenderness Assessment and Plan - Assessment and Plan (Free Text) Plan: Assessment probable acute exacerbation of COPD and CHF, clinically improving S/P right lower lobe community-acquired pneumonia history of infected sacral decubitus ulcer with probable osteomyelitis, S/P debridement CAD with chronic CHF DM HTN COPD hypothyroidism psoriasis S/P treatment for HCAP Plan on Cefepime and Doxycycline day 5 of 3-5 days will continue to monitor clinically
--- NOTE | 2018-10-15 15:35 | PN ---
DATE: 10/15/2018 SUBJECTIVE: The patient is currently seen on telemetry. He is lying comfortable in bed. He has no acute respiratory distress. He is continuing on inhalation therapy and remains on steroids for his acute bronchitis. OBJECTIVE: INTAKE/OUTPUT: Intake is 2140, output is 2100. VITAL SIGNS: Blood pressure 121/60, temperature 97.8, respiratory rate 19 with a pulse of 66 and regular. Pulse ox is 97%. HEENT: Exam shows him to be normocephalic, atraumatic. Conjunctivae are pale. Sclerae are nonicteric. NECK: Supple. No neck vein distention. CHEST: Clear to auscultation and percussion with slight decreased breath sounds. No rales, rhonchi or wheezing. CARDIOVASCULAR: Regular rate and rhythm with a soft systolic murmur, left lower sternal border. No S3. No S4. No rub. ABDOMEN: Soft. Bowel sounds normal. Moderately obese. Nondistended. No organomegaly. No masses. EXTREMITIES: No lower extremity cyanosis, clubbing or edema. LABORATORY DATA: CBC, white blood cell count from yesterday 11.2 with a hemoglobin of 10.2 and a platelet count of 190,000. Chemistries from yesterday showed a repeat potassium of 4.3, normal electrolytes; otherwise, with a CO2 of 20. BUN on steroids is up from 51-68. Baseline BUN is in the upper 20s. Creatinine is down from 3.3-2.7. Baseline creatinine is in the upper one range. Glucose 271. Calcium was 9.1. Microbiology. Urine cultures showed gram-positive cocci in a nonsignificant number. Blood cultures are negative at four days. ASSESSMENT: 1. Acute renal insufficiency superimposed on chronic kidney disease, stage III. Renal parameters remain stable. Creatinine is slowly falling. BUN, however, is slightly higher secondary to the use of diuretics with steroids. Diuretics are now on hold. The patient does remain on oral steroids. 2. Status post hyperkalemia. This was treated yesterday with appropriate therapy and his potassium level on repeat was down to 4.3. We will repeat another set of labs for tomorrow. 3. Possible sepsis. No evidence for urinary tract infection. Positive acute bronchitis. No evidence for pneumonia. The patient will complete a course of antibiotic therapy. He is being followed by Pulmonary and ID. 4. History of NIDDM. With the patient now requiring insulin. He is felt to have underlying kidney disease from diabetic nephropathy. 5. History of hypertension. Blood pressure is controlled on low-dose beta-cassandra therapy. 6. History of chronic obstructive pulmonary disease, stable on inhalation therapy and steroids. 7. 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 8. History of hypothyroidism. The patient continues Levoxyl therapy. We will check a T4, TSH level with tomorrow's blood work. PLAN: 1. Taper steroids when able. This will likely help the BUN to fall back to baseline levels which is in the 20-30 range. 2 Avoid all nephrotoxic agents. 3. Limit use of diuretics. The patient has no lower extremity edema. No congestive heart failure on chest x-ray. 4. Follow labs closely over the next several days. 5. Complete the course of antibiotics for his acute bronchitis. 6. Continue to monitor the patient on telemetry. Miguel Whelan MD
[2018-10-15 18:39] VITALS: BP 144/67; PULSE 74; RESP 20; TEMP 97.6
--- NOTE | 2018-10-16 03:28 | DS ---
HOSPITAL COURSE: This is a 73-year-old man who presented to the emergency room at [facility] with a little bit confusing story. Initially, there was talk of respiratory distress, later of low sugar reaction. The patient was found to be hypoxic, treated with BiPAP and admitted, question of infiltrate on the chest x-ray was raised, but later found to be not the case as there was no infiltrate and no evidence of pneumonia. His hypoglycemic episode was treated. His respiratory distress was radiated to COPD. During the course of his hospital stay, he was followed by pulmonary environmental remediation consultant . There was also concerned about raising BUN and creatinine, but this was felt to be to his baseline remained in the 2.7 range over the course of his stay. He was followed by Renal and Pulmonary consultants, clinically improved and he was ready for discharged to his transitional care unit where additional physical therapy and condition prior to discharged to home. We will follow him during his stay on transitional care. FINAL DISCHARGE DIAGNOSES: 1. Acute exacerbation of chronic obstructive pulmonary disease. 2. Leukocytosis, but no evidence of pneumonia. 3. Chronic renal insufficiency. 4. Chronic obstructive pulmonary disease. 5. Diabetes. 6. Hypoglycemia on presentation to the emergency room. 7. History of pneumonia in the past. 8. History of urinary tract infection. 9. Status post traumatic brain injury, fall from a rooftop. 10. History of hypertension. 11. History of hypothyroidism. 12. History of decubitus ulcer, now healed. 13. Status post hospitalization last year for sepsis, pneumonia, and chronic obstructive pulmonary disease. 14. Active tobacco use disorder. 15. History of intermittent atrial fibrillation on for which he is now taking Eliquis. Dannie Ramon MD
== END 2018-10-15 18:24 | DRG 191 ==
LOC: ED 23:34 → ERH 10-11 00:44 → 2RNO 10-11 02:27
PROVIDERS: ADMIT Internal Medicine; ATTEND Internal Medicine
PROC: 5A09357 Assistance with Respiratory Ventilation, Less than 24 Consecutive Hours, Continuous Positive Airway Pressure (ICD-10-PCS; principal; 2018-10-12)
DX: J44.1 Chronic obstructive pulmonary disease with (acute) exacerbation (principal); E87.2 Acidosis; N18.4 Chronic kidney disease, stage 4 (severe); N17.9 Acute kidney failure, unspecified; I13.0 Hypertensive heart and chronic kidney disease with heart failure and stage 1 through stage 4 chronic kidney disease, or unspecified chronic kidney disease; N39.0 Urinary tract infection, site not specified; J44.0 Chronic obstructive pulmonary disease with (acute) lower respiratory infection; J20.9 Acute bronchitis, unspecified; I50.9 Heart failure, unspecified; E11.649 Type 2 diabetes mellitus with hypoglycemia without coma; I48.91 Unspecified atrial fibrillation; R09.02 Hypoxemia; E87.5 Hyperkalemia; I48.2 Chronic atrial fibrillation; D64.9 Anemia, unspecified; E11.22 Type 2 diabetes mellitus with diabetic chronic kidney disease; I25.10 Atherosclerotic heart disease of native coronary artery without angina pectoris; E03.9 Hypothyroidism, unspecified; E11.65 Type 2 diabetes mellitus with hyperglycemia; E11.21 Type 2 diabetes mellitus with diabetic nephropathy; E78.00 Pure hypercholesterolemia, unspecified; L40.9 Psoriasis, unspecified; F17.200 Nicotine dependence, unspecified, uncomplicated; Z87.820 Personal history of traumatic brain injury; Z79.01 Long term (current) use of anticoagulants; Z79.4 Long term (current) use of insulin; Z87.01 Personal history of pneumonia (recurrent)

== ENCOUNTER 2018-10-15 18:24 | Inpatient (IN) | payer OTHER ==
[2018-10-15] MEDS ORDERED: Albuterol-Ipratrop 3 mg / 0.5 (3 ml) UD IH PRN (20:21)
[2018-10-15] MEDS: Insulin Reg-LOW-Coverage SC SCH (21:37)
--- NOTE | 2018-10-16 00:27 | HP ---
DATE OF EXAM: 10/15/2018 CHIEF COMPLAINT Deconditioning after a brief stay in the acute care facility at [facility]. The patient now comes to Transitional Care Unit. HISTORY OF PRESENT ILLNESS: This is 73-year-old man recently admitted to acute care facility at [facility] with acute exacerbation of chronic COPD and hypoglycemia. He improved clinically and now comes to the Transitional Care Unit for some additional physical therapy and conditioning prior to discharge to home. MEDICATIONS AT HOME: Include Synthroid, Neurontin, Zestril, metformin, glipizide and Zanaflex. ALLERGIES: HE HAS NO KNOWN ALLERGIES TO MEDICATIONS. PAST MEDICAL HISTORY: Significant for hypertension, diabetes, fall from the rooftop with traumatic brain injury, hypothyroidism, COPD, psoriasis. SOCIAL HISTORY: Continues to smoke. He is a , lives with his son. Does not drink alcohol. REVIEW OF SYSTEMS: Symptoms is significant for arthritis and back pain and mild exertional dyspnea related to his COPD. PHYSICAL EXAMINATION: GENERAL: The patient was seen this Sunday, , in bed, awake, alert, clear in good spirits and very much looking forward to his stay in Transitional Care Unit with physical therapy and increasing activities. HEAD AND NECK: Unremarkable. Conjunctivae is pink. Mucous membranes moist. Neck is supple without masses. Thyroid is not palpable. LUNGS: Show decreased breath sounds both right and left with prolonged expiratory phase, typical of COPD. HEART: There is no rales, wheezes or rhonchi at this time. ABDOMEN: Moderately overweight. EXTREMITIES: Show no edema. IMPRESSION: 1. Deconditioning after acute hospital stay. 2. Chronic obstructive pulmonary disease. 3. Hypoglycemia 4. Diabetes. 5. History of pneumonia. 6. Urinary tract infection. 7. Status post traumatic brain injury, falls from a rooftop. 8. History of hypertension. 9. History of hypothyroidism. 10. History of decubitus ulcer, now healed. 11. Status post hospitalization last year for sepsis, pneumonia, chronic obstructive pulmonary disease 12. Active tobacco use disorder. 13. Chronic renal insufficiency. 14. Intermittent atrial fibrillation in 10/2017 for which he is now taking Eliquis. Dannie Ramon MD [facility] # [id number]
[2018-10-16] MEDS ORDERED: Pneumococcal 23-Valent Vaccine IM ONE (00:48)
[2018-10-16] MEDS ORDERED: Influenza Vaccine 60 mcg/0.5 mL SYR (4YR UP) IM ONE (00:48)
[2018-10-16] MEDS: Albuterol-Ipratrop 3 mg / 0.5 (3 ml) UD IH SCH ×4 (02:39→20:12)
[2018-10-16] MEDS: Cefepime 1gm in NS 100ml 1 GM/100 ML BAG IVPB SCH (05:14)
[2018-10-16] MEDS: Pantoprazole 40 mg EC Tab PO SCH (05:14)
[2018-10-16] MEDS: Levothyroxine 100 MCG TAB PO SCH (05:14)
[2018-10-16 06:18] LABS: BASO # 0.01 K/mm3 (0.0-2.0); BASO % 0.1 % (0.0-3.0); EOS % 0.4 % (1.5-5.0); HEMOGLOBIN 10.7 g/dL (14.0-18.0); LYMPH # 1.1 (1.2-3.4); LYMPH % 11.7 % (22.0-35.0); MEAN CELL VOLUME 99.7 fl (80.0-105.0); MEAN CORPUSCULAR HEMOGLOBIN 32.7 pg (25.0-35.0); MEAN CORPUSCULAR HGB CONC 32.8 g/dl (31.0-37.0); MEAN PLATELET VOLUME 11.1 fl (7.0-11.0); MONO % 9.9 % (1.0-6.0); RBC 3.27 10^6/uL (3.5-6.1); RED CELL DISTRIBUTION WIDTH 13.8 % (11.5-14.5); WHITE BLOOD COUNT 9.8 10^3/uL (4.5-11.0)
[2018-10-16] MEDS: Insulin Reg-LOW-Coverage SC SCH ×4 (06:31→21:45)
[2018-10-16 06:55] LABS: T4 5.7 ug/dL (5.5-11.0)
[2018-10-16] MEDS: Arformoterol 15 mcg/2 ml Inh Sol IH SCH ×2 (07:23→20:12)
[2018-10-16] MEDS: Budesonide 0.5 mg/2 ml Inhal Susp UD IH SCH ×2 (07:23→20:12)
[2018-10-16 07:32] LABS: ALB/GLOB RATIO 1.1 (1.1-1.8); ALBUMIN 3.4 g/dL (3.0-4.8); CALCIUM 8.9 mg/dL (8.4-10.5)
--- NOTE | 2018-10-16 09:39 | PN ---
DATE: 10/16/2018 SUBJECTIVE: The patient appears comfortable this morning. He is not short of breath at rest. PHYSICAL EXAMINATION: VITAL SIGNS: Temperature 97.6, pulse 74, respirations 18, blood pressure 144/67. Oxygen saturation on nasal cannula is 97%. HEENT: Normocephalic, atraumatic. NECK: No JVD. CARDIOVASCULAR: Systolic ejection murmur at the lower left sternal border. No S3 gallop. LUNGS: Clear bilaterally. EXTREMITIES: Mild edema. No cyanosis. No clubbing. Calves are nontender to palpation. GI: Abdomen is soft, nontender and nondistended. Bowel sounds are positive. SKIN: No acute rash. NEUROLOGIC: Exam limited at the present time. IMPRESSION: 1. Acute bronchitis. 2. Advanced chronic obstructive pulmonary disease. 3. Chronic atrial fibrillation. 4. Mild anemia. 5. Renal insufficiency. PLAN: The patient appears quite comfortable this morning. He is not short of breath at rest. He does state to feeling much better overall. I did discuss the case with the night nurse at length. The night nurse stated the patient had a very good night. However, the night nurse did inform me that the patient refused his BiPAP at night. I did discuss this issue with the patient at length this morning. On physical exam, the patient's lungs remain clear. In addition, there is no significant alveolar-arterial gradient. I will continue with the current nebulizer treatments and oral steroids (changed yesterday) for now. The patient remains on antibiotic therapy - as per Infectious Disease. Clinical status of the patient is significantly improved - compared to his initial presentation. However, given the above, the future status/prognosis for this patient does remain guarded. The patient is now on the transitional unit - where he will participate with physical therapy. I will discuss the above with Dr. Ramon. Umair Kauffman MD MTDD
[2018-10-16 13:19] LABS: IRON 99 ug/dL (45-180)
--- NOTE | 2018-10-16 13:23 | CP.PCM.CON ---
History of Present Illness - History of Present Illness History of Present Illness: 73 year old male with PMH of COPD, chronic CHF, S/P right lower lobe community- acquired pneumonia, history of infected sacral decubitus ulcer with probable osteomyelitis, S/P debridement, CAD with chronic CHF, DM, HTN, hypothyroidism, p soriasis, S/P treatment for HCAP initially came in to [facility] because of labored breathing and dyspnea on exertion, with occasional dry cough. He was found to have probable exacerbation of COPD and CHF, and was being medically managed with improvement. He is now transferred to [facility] for continued medical therapy and physical rehab. Infectious diseases consult is requested to further evaluate and manage. He denies fever or chills, not short of breath at rest, no nausea or vomiting, no headache or dizziness, no chest pain, no abdominal pain, no diarrhea, no dysuria. Review of Systems - Review of Systems All systems: reviewed and no additional remarkable complaints except (as per HPI) Past Patient History - Infectious Disease Hx of Infectious Diseases: None - Tetanus Immunizations Tetanus Immunization: Unknown - Past Social History Smoking Status: Former Smoker - CARDIAC Hx Congestive Heart Failure: Yes Hx Hypertension: Yes - PULMONARY Hx Chronic Obstructive Pulmonary Disease (COPD): Yes - NEUROLOGICAL Hx Neurological Disorder: No - HEENT Hx HEENT Problems: No - RENAL Hx Renal Failure: Yes - ENDOCRINE/METABOLIC Hx Diabetes Mellitus Type 2: Yes Hx Hypothyroidism: Yes - HEMATOLOGICAL/ONCOLOGICAL Hx Cancer: No - INTEGUMENTARY Hx Psoriasis: Yes - MUSCULOSKELETAL/RHEUMATOLOGICAL Hx Falls: Yes - GASTROINTESTINAL Hx Gastrointestinal Disorders: No - GENITOURINARY/GYNECOLOGICAL Hx Genitourinary Disorders: Yes Hx Reproductive Disorders: No - PSYCHIATRIC Hx Psychophysiologic Disorder: (unknown) Hx Depression: No Hx Emotional Abuse: No Hx Physical Abuse: No Hx Substance Use: No - SURGICAL HISTORY Hx Mastectomy: No - ANESTHESIA Hx Anesthesia: Yes Hx Anesthesia Reactions: No Hx Malignant Hyperthermia: No Meds Allergies/Adverse Reactions: Allergies Allergy/AdvReac Type Severity Reaction Status Date / Time No Known Allergies Allergy Verified 10/15/18 20:08 - Medications Medications: Current Medications Albuterol/Ipratropium (Duoneb 3 Mg/0.5 Mg (3 Ml) Ud) 3 ml IH [id number] [facility]; Protocol Last Admin: 10/16/18 02:39 Dose: Not Given Albuterol/Ipratropium (Duoneb 3 Mg/0.5 Mg (3 Ml) Ud) 3 ml IH Q2H PRN; Protocol PRN Reason: Shortness of Breath Apixaban (Eliquis) 2.5 mg PO BID GLORIA; Protocol Arformoterol Tartrate (Brovana) 15 mcg IH [id number] GLORIA Budesonide (Pulmicort Respules) 0.5 mg IH [id number] GLORIA; Protocol Doxycycline Hyclate (Doryx) 100 mg PO Q12 GLORIA; Protocol Glipizide (Glucotrol) 5 mg PO 0700 GLORIA; Protocol Cefepime HCl (Maxipime 1gm) 1 gm in 100 mls @ 100 mls/hr IVPB 0600 GLORIA; Protocol Last Admin: 10/16/18 05:14 Dose: 100 mls/hr Insulin Human Regular (Humulin R Low) 0 units SC ACHS GLORIA; Protocol Last Admin: 10/16/18 06:31 Dose: Not Given Levothyroxine Sodium (Synthroid) 100 mcg PO 0600 GLORIA; Protocol Last Admin: 10/16/18 05:14 Dose: 100 mcg Metoprolol Tartrate (Lopressor) 25 mg PO 0800,1700 GLORIA; Protocol Pantoprazole Sodium (Protonix Ec Tab) 40 mg PO 0600 GLORIA; Protocol Last Admin: 10/16/18 05:14 Dose: 40 mg Prednisone (Prednisone Tab) 30 mg PO 0800 GLORIA; Protocol Tamsulosin HCl (Flomax) 0.4 mg PO DAILY GLORIA; Protocol Physical Exam - Constitutional Appears: No Acute Distress, Chronically Ill - Head Exam Head Exam: NORMAL INSPECTION - Respiratory Exam Respiratory Exam: Decreased Breath Sounds - Cardiovascular Exam Cardiovascular Exam: +S1, +S2 - GI/Abdominal Exam GI & Abdominal Exam: Soft. absent: Tenderness Results - Labs Result Diagrams: 10/16/18 05:30 10/16/18 05:30 Labs: Laboratory Results - last 24 hr 10/16/18 05:30 WBC 9.8 RBC 3.27 L Hgb 10.7 L Hct 32.6 L MCV 99.7 MCH 32.7 MCHC 32.8 RDW 13.8 Plt Count 188 MPV 11.1 H Neut % (Auto) 77.9 H Lymph % (Auto) 11.7 L [place] % (Auto) 9.9 H Eos % (Auto) 0.4 L Baso % (Auto) 0.1 Lymph # (Auto) 1.1 L [place] # (Auto) 1.0 H Eos # (Auto) 0.0 Baso # (Auto) 0.01 Absolute Neuts (auto) 7.61 H Assessment & Plan - Assessment and Plan (Free Text) Plan: Assessment probable acute exacerbation of COPD and CHF, clinically improving S/P right lower lobe community-acquired pneumonia history of infected sacral decubitus ulcer with probable osteomyelitis, S/P debridement CAD with chronic CHF DM HTN COPD hypothyroidism psoriasis S/P treatment for HCAP Plan on Cefepime and Doxycycline day 6 - will d/c antibiotics in the next 24-48 hours will continue to monitor clinically
[2018-10-16 13:28] LABS: % IRON SATURATION 41 % (20-55); TOTAL IRON BINDING CAPACITY 240 ug/dL (261-462)
--- NOTE | 2018-10-16 15:30 | CON ---
DATE OF CONSULTATION: 10/16/2018 REASON FOR CONSULTATION: Anemia, chronic kidney disease stage IV. HISTORY OF PRESENT ILLNESS: A 73-year-old male, was initially seen on the medical side when he was admitted with altered mental status, hypoglycemia, acute kidney injury. The patient was treated with IV fluids. He was treated with respiratory treatments. His renal parameters remained stable. He does have underlying chronic kidney disease stage IV. Consultation is requested for management of chronic kidney disease. PAST MEDICAL/SURGICAL HISTORY: Hypertension, NIDDM, traumatic brain injury, hypothyroidism, COPD, psoriasis. FAMILY HISTORY: Noncontributory. SOCIAL HISTORY: Active smoker, no alcohol use, no IV drug abuse. ALLERGIES: NO KNOWN DRUG ALLERGIES. MEDICATIONS: Currently are Brovana, doxycycline 100 every 12 hours, DuoNeb, Eliquis 2.5 b.i.d., Flomax 0.4, Glucotrol 5, Lopressor 25 b.i.d., cefepime 1 g, prednisone 30, Protonix 40, Synthroid 100. REVIEW OF SYSTEMS: All systems are reviewed, pertinent positives as mentioned in history of presenting illness, rest unremarkable. PHYSICAL EXAMINATION: GENERAL: Elderly male, sitting in chair. VITAL SIGNS: Blood pressure 118/53, heart rate 62, respiratory rate 18, temperature 98. HEENT: Normocephalic, atraumatic, positive pallor. NECK: Supple, no JVD. LUNGS: Bilateral equal entry, bilateral equal expansion, no rales. CARDIAC: S1 and S2, regular rate and rhythm, no murmur, no rub. ABDOMEN: Obese, distended, soft, nontender, bowel sounds present. EXTREMITIES: No lower extremity edema. INTAKE AND OUTPUT: Not charted. LABORATORY DATA: WBC 9.8, hemoglobin 10.7, hematocrit 32.6, platelets 188. Sodium 137, potassium 4.2, chloride 104, CO2 of 24, BUN 58, creatinine 2.3, glucose 132, calcium 8.9, phosphorus 3.6, magnesium 1.7, AST 25, ALT 31, albumin 3.4. ASSESSMENT: 1. Stable chronic kidney disease stage IV. 2. Anemia of chronic kidney disease. 3. No evidence of secondary hyperparathyroidism. 4. Znj-tvrffer-lmxynmpii diabetes mellitus. 5. History of traumatic brain injury. 6. Chronic obstructive pulmonary disease exacerbation, now compensated. PLAN: 1. Continue current management. 2. Recommend checking iron stores. 3. May need p.o. iron. 4. Check intact PTH levels. 5. Continue physical therapy. Belem Campbell MD
[2018-10-17] MEDS: Albuterol-Ipratrop 3 mg / 0.5 (3 ml) UD IH SCH ×3 (02:35→13:23)
[2018-10-17] MEDS: Cefepime 1gm in NS 100ml 1 GM/100 ML BAG IVPB SCH (05:10)
[2018-10-17] MEDS: Pantoprazole 40 mg EC Tab PO SCH (05:10)
[2018-10-17] MEDS: Levothyroxine 100 MCG TAB PO SCH (05:11)
[2018-10-17] MEDS: Arformoterol 15 mcg/2 ml Inh Sol IH SCH (07:10)
[2018-10-17] MEDS: Budesonide 0.5 mg/2 ml Inhal Susp UD IH SCH (07:11)
[2018-10-17] MEDS: Insulin Reg-LOW-Coverage SC SCH ×4 (07:26→22:00)
--- NOTE | 2018-10-17 08:50 | PN ---
DATE: 10/17/2018 SUBJECTIVE: The patient appears comfortable this morning. He is not short of breath at rest. PHYSICAL EXAMINATION: VITAL SIGNS (Last noted in the computer): Temperature 98.6, pulse 62, respiratory rate 18, blood pressure 130/60. Oxygen saturation on nasal cannula is 97%. HEENT: Normocephalic, atraumatic. NECK: No JVD. CARDIOVASCULAR: Systolic ejection murmur at the lower left sternal border. No S3 gallop. LUNGS: Clear bilaterally. EXTREMITIES: Mild edema. No cyanosis. No clubbing. Calves are nontender to palpation. GI: Abdomen is soft, nontender and nondistended. Bowel sounds are positive. SKIN: No acute rash. NEUROLOGIC: Exam limited at the present time. IMPRESSION: 1. Acute bronchitis. 2. Advanced chronic obstructive pulmonary disease. 3. Chronic atrial fibrillation. 4. Mild anemia. 5. Renal insufficiency. PLAN: The patient appears very comfortable this morning. He is not short of breath at rest. He does state to feeling much better overall. I did discuss the case with the night nurse at length. The night nurse stated that the patient had a very good night. However, the patient continues to refuse his BiPAP at night. On physical exam, the patient's lungs remain clear. In addition, there is no significant alveolar-arterial gradient. I will continue with the current nebulizer treatments and decrease the oral steroids this morning. The patient remains on antibiotic therapy - as per Infectious Disease. Input by Dr. Spencer is noted. Clinical status of the patient is significantly improved - compared to the initial presentation. However, given the above, the future status/prognosis for this patient does remain guarded. I will discuss the above with the attending physician. Umair Kauffman MD MTDD
--- NOTE | 2018-10-17 12:17 | PN ---
DATE: 10/16/2018 DAILY PROGRESS NOTE SUBJECTIVE: The patient is a 73 year-old male who had been hospitalized several times over the past year with acute exacerbation of chronic COPD, hypoglycemia, sepsis from decubitus ulcer. He was in a subacute care facility for quite some time, he was discharged to home approximately a week or two prior to this hospitalization where he became acutely short of breath. He presented to the emergency room and was admitted to the medical floor on October 11, 2018 and was treated for community-acquired pneumonia. The patient has improved and on October 15, 2018 was transferred to the Transitional Care Unit for intravenous antibiotic therapy and physical therapy. When seen, the patient is resting comfortably. He voices no complaints. His lungs are clear. Heart is regular. Abdomen is soft and nontender. We are continuing with his medications which include; Brovana, doxycycline 100 mg every 12 hours, DuoNeb nebulizer treatments, Eliquis 2.5 mg twice a day, Flomax 0.4 mg, Glucotrol 5 mg once a day, Lopressor 25 mg twice a day, Maxipime 1 g intravenously daily, he is on prednisone tablets 20 mg daily, Protonix 40 mg, Pulmicort Respules and Synthroid 100 mcg. As per Infectious Disease note, the antibiotics are soon to be discontinued. We will continue physical therapy as long as possible as per insurance regulations and continue to follow the patient closely. Nii Ramon MD
--- NOTE | 2018-10-17 14:37 | CP.PCM.PN ---
Subjective - Date & Time of Evaluation Date of Evaluation: 10/17/18 Time of Evaluation: 11:20 - Subjective Subjective: Comfortable, afebrile, not in distress. Objective - Vital Signs/Intake and Output Vital Signs (last 24 hours): Temp Pulse Resp BP Pulse Ox 62 118/53 L 10/16/18 08:00 10/16/18 08:00 Intake and Output: 10/16/18 10/16/18 06:59 18:59 Output Total 750 Balance -750 - Medications Medications: Current Medications Albuterol/Ipratropium (Duoneb 3 Mg/0.5 Mg (3 Ml) Ud) 3 ml IH [id number] GLORIA; Protocol Last Admin: 10/16/18 13:21 Dose: 3 ml Albuterol/Ipratropium (Duoneb 3 Mg/0.5 Mg (3 Ml) Ud) 3 ml IH Q2H PRN; Protocol PRN Reason: Shortness of Breath Apixaban (Eliquis) 2.5 mg PO BID GLORIA; Protocol Last Admin: 10/16/18 10:02 Dose: 2.5 mg Arformoterol Tartrate (Brovana) 15 mcg IH [id number] GLORIA Last Admin: 10/16/18 07:23 Dose: 15 mcg Budesonide (Pulmicort Respules) 0.5 mg IH [id number] GLORIA; Protocol Last Admin: 10/16/18 07:23 Dose: 0.5 mg Doxycycline Hyclate (Doryx) 100 mg PO Q12 GLORIA; Protocol Last Admin: 10/16/18 10:01 Dose: 100 mg Glipizide (Glucotrol) 5 mg PO 0700 GLORIA; Protocol Last Admin: 10/16/18 07:59 Dose: 5 mg Cefepime HCl (Maxipime 1gm) 1 gm in 100 mls @ 100 mls/hr IVPB 0600 GLORIA; Protocol Last Admin: 10/16/18 05:14 Dose: 100 mls/hr Insulin Human Regular (Humulin R Low) 0 units SC ACHS GLORIA; Protocol Last Admin: 10/16/18 12:03 Dose: 3 units Levothyroxine Sodium (Synthroid) 100 mcg PO 0600 GLORIA; Protocol Last Admin: 10/16/18 05:14 Dose: 100 mcg Metoprolol Tartrate (Lopressor) 25 mg PO 0800,1700 GLORIA; Protocol Last Admin: 10/16/18 08:00 Dose: Not Given Pantoprazole Sodium (Protonix Ec Tab) 40 mg PO 0600 GLORIA; Protocol Last Admin: 10/16/18 05:14 Dose: 40 mg Prednisone (Prednisone Tab) 30 mg PO 0800 GLORIA; Protocol Last Admin: 10/16/18 08:00 Dose: 30 mg Tamsulosin HCl (Flomax) 0.4 mg PO DAILY GLORIA; Protocol Last Admin: 10/16/18 10:02 Dose: 0.4 mg - Labs Labs: 10/16/18 05:30 10/16/18 05:30 - Constitutional Appears: No Acute Distress, Chronically Ill - Head Exam Head Exam: NORMAL INSPECTION - Respiratory Exam Respiratory Exam: Decreased Breath Sounds - Cardiovascular Exam Cardiovascular Exam: +S1, +S2 - GI/Abdominal Exam GI & Abdominal Exam: Soft. absent: Tenderness Assessment and Plan - Assessment and Plan (Free Text) Plan: Assessment probable acute exacerbation of COPD and CHF, clinically improving S/P right lower lobe community-acquired pneumonia history of infected sacral decubitus ulcer with probable osteomyelitis, S/P debridement CAD with chronic CHF DM HTN COPD hypothyroidism psoriasis S/P treatment for HCAP Plan on Cefepime and Doxycycline day 7 - will d/c antibiotics in the next 24 hours will continue to monitor clinically
--- NOTE | 2018-10-17 20:58 | PN ---
DATE: 10/17/2018 SUBJECTIVE: The patient is seen sitting in chair. He is awake. He is alert. He is comfortable. PHYSICAL EXAMINATION: GENERAL: Elderly male sitting in chair. VITAL SIGNS: Blood pressure 132/56, heart rate 62, respiratory rate 18, and temperature 98.4. HEENT: Normocephalic and atraumatic. Positive pallor. NECK: Supple. No JVD. LUNGS: Bilateral equal air entry, bilateral equal expansion. No rales. EXTREMITIES: No lower extremity edema. LABORATORY DATA: No new labs. MEDICATIONS: Brovana, doxycycline 100 every 12 hours, Eliquis 2.5 b.i.d., Flomax, glipizide, insulin, Lopressor 25 b.i.d., cefepime 1 g daily, prednisone 20, and Synthroid 100. ASSESSMENT: 1. Chronic kidney disease stage IV, stable. 2. Anemia of chronic kidney disease. 3. Compensated secondary hyperparathyroidism. 4. Noninsulin-dependent diabetes mellitus. 5. . PLAN: 1. Iron stores are adequate. We will initiate p.o. iron, Feosol 325 daily. 2. No indication right now. 3. Phosphorus is controlled. 4. Vitamin D 1000 units daily. Belem Campbell MD
[2018-10-18] MEDS: Cefepime 1gm in NS 100ml 1 GM/100 ML BAG IVPB SCH (05:23)
[2018-10-18] MEDS: Levothyroxine 100 MCG TAB PO SCH (05:23)
[2018-10-18] MEDS: Pantoprazole 40 mg EC Tab PO SCH (05:23)
[2018-10-18] MEDS: Insulin Reg-LOW-Coverage SC SCH ×4 (06:52→21:29)
[2018-10-18] MEDS: Albuterol-Ipratrop 3 mg / 0.5 (3 ml) UD IH SCH ×3 (07:34→20:33)
[2018-10-18] MEDS: Budesonide 0.5 mg/2 ml Inhal Susp UD IH SCH ×2 (07:34→20:33)
[2018-10-18] MEDS: Arformoterol 15 mcg/2 ml Inh Sol IH SCH ×2 (07:34→20:32)
--- NOTE | 2018-10-18 10:58 | PN ---
DATE: 10/18/2018 PULMONARY NOTE SUBJECTIVE: The patient appears very comfortable this morning. He is not short of breath at rest. OBJECTIVE: VITAL SIGNS: (Last noted in the computer): Temperature is 97.8, pulse 77, respirations 18, blood pressure 113/56. Oxygen saturation on nasal cannula is 97%-98%. HEENT: Normocephalic, atraumatic. No JVD. CARDIOVASCULAR: Systolic ejection murmur at the lower left sternal border. No S3 gallop. LUNGS: Clear bilaterally. EXTREMITIES: Mild edema. No cyanosis, no clubbing. Calves are nontender to palpation. GASTROINTESTINAL: Abdomen is soft, nontender and nondistended. Bowel sounds are positive. SKIN: No acute rash. NEUROLOGIC: Limited at the present time. IMPRESSION: 1. Acute bronchitis. 2. Advanced chronic obstructive pulmonary disease. 3. Chronic atrial fibrillation. 4. Mild anemia. 5. Renal insufficiency. PLAN: The patient appears very comfortable this morning. He is not short of breath at rest. He does state to feeling much better overall. I did discuss the case with the night nurse at length. The night nurse stated the patient had a good night. He continues to refuse the BiPAP at night. On physical exam, the patient's lungs remain clear. In addition, there is no significant alveolar-arterial gradient. I will continue the current nebulizer treatments and oral steroids (decreased yesterday) for now. The patient remains on antibiotic therapy - as per Infectious Disease. There are no temperatures noted. There is no leukocytosis. Clinical status of the patient is significantly improved - compared to the initial presentation. However, given the above, the future status/prognosis of this patient does remain guarded. I will discuss the above with the attending physician. Umair Kauffman MD [facility]
--- NOTE | 2018-10-18 14:18 | PN ---
DATE: 10/18/2018 SUBJECTIVE: The patient is seen lying in bed. He is awake, he is alert, he is comfortable. He denies any chest pain, shortness of breath, nausea, vomiting or diarrhea. PHYSICAL EXAMINATION: GENERAL: Elderly male lying in bed. VITAL SIGNS: Blood pressure 104/47, heart rate 77, respiratory rate 18, temperature 97.8. HEENT: Normocephalic, atraumatic. Positive pallor. NECK: Supple. No JVD. LUNGS: Bilateral equal entry, bilateral equal expansion. CARDIAC: S1 and S2, regular rate and rhythm, no murmur, no rub. ABDOMEN: Obese, distended, soft, nontender, bowel sounds present. EXTREMITIES: No lower extremity edema. LABORATORY DATA: WBC 9.8, hemoglobin 10.7, hematocrit 32.6, platelets 188. No chemistry. CURRENT MEDICATIONS: Brovana, doxycycline, Eliquis 2.5 b.i.d., Feosol 324 t.i.d., Flomax 0.4, glipizide 5, insulin, Lopressor 25 b.i.d., cefepime 1 g daily, prednisone 20, Protonix, Pulmicort, Synthroid. ASSESSMENT: 1. Stable chronic kidney disease stage IV. 2. Anemia of chronic kidney disease. 3. Compensated secondary hyperparathyroidism. 4. Status post sepsis. PLAN: 1. Continue antibiotics as per ID recommendations. 2. Continue oral iron. 3. Continue current antihypertensives. 4. Monitor fingersticks and continue oral hypoglycemics. Belem Campbell MD
--- NOTE | 2018-10-18 14:48 | CP.PCM.PN ---
Subjective - Date & Time of Evaluation Date of Evaluation: 10/18/18 Time of Evaluation: 10:15 - Subjective Subjective: Comfortable, no fevers, breathing well. Objective - Vital Signs/Intake and Output Vital Signs (last 24 hours): Temp Pulse Resp BP Pulse Ox 62 132/56 L 10/16/18 17:02 10/17/18 08:16 Intake and Output: 10/17/18 10/17/18 06:59 18:59 Output Total 800 Balance -800 - Medications Medications: Current Medications Albuterol/Ipratropium (Duoneb 3 Mg/0.5 Mg (3 Ml) Ud) 3 ml IH [id number] [facility]; Protocol Last Admin: 10/17/18 13:23 Dose: 3 ml Albuterol/Ipratropium (Duoneb 3 Mg/0.5 Mg (3 Ml) Ud) 3 ml IH Q2H PRN; Protocol PRN Reason: Shortness of Breath Apixaban (Eliquis) 2.5 mg PO BID [facility]; Protocol Last Admin: 10/17/18 09:34 Dose: 2.5 mg Arformoterol Tartrate (Brovana) 15 mcg IH [id number] [facility] Last Admin: 10/17/18 07:10 Dose: 15 mcg Budesonide (Pulmicort Respules) 0.5 mg IH [id number] [facility]; Protocol Last Admin: 10/17/18 07:11 Dose: 0.5 mg Doxycycline Hyclate (Doryx) 100 mg PO Q12 [facility]; Protocol Last Admin: 10/17/18 09:34 Dose: 100 mg Glipizide (Glucotrol) 5 mg PO 0700 [facility]; Protocol Last Admin: 10/17/18 08:16 Dose: 5 mg Cefepime HCl (Maxipime 1gm) 1 gm in 100 mls @ 100 mls/hr IVPB 0600 [facility]; Protocol Last Admin: 10/17/18 05:10 Dose: 100 mls/hr Insulin Human Regular (Humulin R Low) 0 units SC ACHS [facility]; Protocol Last Admin: 10/17/18 07:26 Dose: 1 units Levothyroxine Sodium (Synthroid) 100 mcg PO 0600 [facility]; Protocol Last Admin: 10/17/18 05:11 Dose: 100 mcg Metoprolol Tartrate (Lopressor) 25 mg PO 0800,1700 [facility]; Protocol Last Admin: 10/17/18 08:16 Dose: 25 mg Pantoprazole Sodium (Protonix Ec Tab) 40 mg PO 0600 [facility]; Protocol Last Admin: 10/17/18 05:10 Dose: 40 mg Prednisone (Prednisone Tab) 20 mg PO DAILY [facility] Last Admin: 10/17/18 09:35 Dose: 20 mg Tamsulosin HCl (Flomax) 0.4 mg PO DAILY [facility]; Protocol Last Admin: 10/17/18 09:35 Dose: 0.4 mg - Labs Labs: 10/16/18 05:30 10/16/18 05:30 - Constitutional Appears: Chronically Ill - Head Exam Head Exam: NORMAL INSPECTION - ENT Exam ENT Exam: Mucous Membranes Moist - Neck Exam Neck Exam: absent: Meningismus - Respiratory Exam Respiratory Exam: Decreased Breath Sounds - Cardiovascular Exam Cardiovascular Exam: +S1, +S2 - GI/Abdominal Exam GI & Abdominal Exam: Soft. absent: Tenderness Assessment and Plan - Assessment and Plan (Free Text) Plan: Assessment probable acute exacerbation of COPD and CHF, clinically improving S/P right lower lobe community-acquired pneumonia history of infected sacral decubitus ulcer with probable osteomyelitis, S/P debridement CAD with chronic CHF DM HTN COPD hypothyroidism psoriasis S/P treatment for HCAP Plan on Cefepime and Doxycycline day 8 - will d/c antibiotics today and observe will continue to monitor clinically
[2018-10-19] MEDS: Albuterol-Ipratrop 3 mg / 0.5 (3 ml) UD IH SCH ×4 (01:58→21:25)
[2018-10-19] MEDS: Insulin Reg-LOW-Coverage SC SCH ×4 (06:40→22:44)
[2018-10-19] MEDS: Pantoprazole 40 mg EC Tab PO SCH (06:41)
[2018-10-19] MEDS: Levothyroxine 100 MCG TAB PO SCH (06:41)
[2018-10-19] MEDS: Arformoterol 15 mcg/2 ml Inh Sol IH SCH ×2 (07:29→21:24)
[2018-10-19] MEDS: Budesonide 0.5 mg/2 ml Inhal Susp UD IH SCH ×2 (07:29→21:25)
--- NOTE | 2018-10-19 14:04 | CP.PCM.PN ---
Subjective - Date & Time of Evaluation Date of Evaluation: 10/19/18 Time of Evaluation: 10:40 - Subjective Subjective: Not in distress, resting in bed, afebrile. Objective - Vital Signs/Intake and Output Vital Signs (last 24 hours): Temp Pulse Resp BP Pulse Ox 97.8 F 77 18 104/47 L 97 10/17/18 16:00 10/17/18 16:00 10/17/18 16:00 10/18/18 08:37 10/17/18 16:00 Intake and Output: 10/18/18 10/18/18 06:59 18:59 Output Total 1200 Balance -1200 - Medications Medications: Current Medications Albuterol/Ipratropium (Duoneb 3 Mg/0.5 Mg (3 Ml) Ud) 3 ml IH [id number] [facility]; Protocol Last Admin: 10/18/18 13:15 Dose: 3 ml Albuterol/Ipratropium (Duoneb 3 Mg/0.5 Mg (3 Ml) Ud) 3 ml IH Q2H PRN; Protocol PRN Reason: Shortness of Breath Apixaban (Eliquis) 2.5 mg PO BID [facility]; Protocol Last Admin: 10/18/18 09:43 Dose: 2.5 mg Arformoterol Tartrate (Brovana) 15 mcg IH [id number] [facility] Last Admin: 10/18/18 07:34 Dose: 15 mcg Budesonide (Pulmicort Respules) 0.5 mg IH [id number] [facility]; Protocol Last Admin: 10/18/18 07:34 Dose: 0.5 mg Doxycycline Hyclate (Doryx) 100 mg PO Q12 [facility]; Protocol Last Admin: 10/18/18 09:43 Dose: 100 mg Ferrous Sulfate (Feosol) 324 mg PO TID [facility] Last Admin: 10/18/18 13:40 Dose: 324 mg Glipizide (Glucotrol) 5 mg PO 0700 [facility]; Protocol Last Admin: 10/18/18 08:36 Dose: 5 mg Cefepime HCl (Maxipime 1gm) 1 gm in 100 mls @ 100 mls/hr IVPB 0600 [facility]; Protocol Last Admin: 10/18/18 05:23 Dose: 100 mls/hr Insulin Human Regular (Humulin R Low) 0 units SC ACHS [facility]; Protocol Last Admin: 10/18/18 12:20 Dose: 1 units Levothyroxine Sodium (Synthroid) 100 mcg PO 0600 [facility]; Protocol Last Admin: 10/18/18 05:23 Dose: 100 mcg Metoprolol Tartrate (Lopressor) 25 mg PO 0800,1700 [facility]; Protocol Last Admin: 10/18/18 08:37 Dose: 25 mg Pantoprazole Sodium (Protonix Ec Tab) 40 mg PO 0600 [facility]; Protocol Last Admin: 10/18/18 05:23 Dose: 40 mg Prednisone (Prednisone Tab) 20 mg PO DAILY [facility] Last Admin: 10/18/18 09:44 Dose: 20 mg Tamsulosin HCl (Flomax) 0.4 mg PO DAILY [facility]; Protocol Last Admin: 10/18/18 09:43 Dose: 0.4 mg - Labs Labs: 10/16/18 05:30 10/16/18 05:30 - Constitutional Appears: Chronically Ill - Head Exam Head Exam: NORMAL INSPECTION - Respiratory Exam Respiratory Exam: Decreased Breath Sounds - Cardiovascular Exam Cardiovascular Exam: +S1, +S2 - GI/Abdominal Exam GI & Abdominal Exam: Soft. absent: Tenderness Assessment and Plan - Assessment and Plan (Free Text) Plan: Assessment probable acute exacerbation of COPD and CHF, clinically improved S/P right lower lobe community-acquired pneumonia history of infected sacral decubitus ulcer with probable osteomyelitis, S/P debridement CAD with chronic CHF DM HTN COPD hypothyroidism psoriasis S/P treatment for HCAP Plan S/P course of Cefepime and Doxycycline - observe off antibiotics
[2018-10-20] MEDS: Albuterol-Ipratrop 3 mg / 0.5 (3 ml) UD IH SCH ×4 (03:30→21:30)
[2018-10-20] MEDS: Levothyroxine 100 MCG TAB PO SCH (05:11)
[2018-10-20] MEDS: Pantoprazole 40 mg EC Tab PO SCH (05:11)
[2018-10-20] MEDS: Insulin Reg-LOW-Coverage SC SCH ×4 (06:48→22:01)
[2018-10-20] MEDS: Arformoterol 15 mcg/2 ml Inh Sol IH SCH ×2 (08:00→21:30)
[2018-10-20] MEDS: Budesonide 0.5 mg/2 ml Inhal Susp UD IH SCH ×2 (08:01→21:30)
--- NOTE | 2018-10-20 09:31 | CP.PCM.PN ---
Subjective - Date & Time of Evaluation Date of Evaluation: 10/20/18 Time of Evaluation: 08:20 - Subjective Subjective: Comfortable in bed, afebrile, not short of breath at rest, no diarrhea. Objective - Vital Signs/Intake and Output Vital Signs (last 24 hours): Temp Pulse Resp BP Pulse Ox 97.7 F 62 20 107/60 93 L 10/19/18 16:30 10/20/18 07:48 10/19/18 16:30 10/20/18 07:48 10/19/18 16:30 - Medications Medications: Current Medications Albuterol/Ipratropium (Duoneb 3 Mg/0.5 Mg (3 Ml) Ud) 3 ml IH [id number] [facility]; Protocol Last Admin: 10/20/18 08:01 Dose: 3 ml Albuterol/Ipratropium (Duoneb 3 Mg/0.5 Mg (3 Ml) Ud) 3 ml IH Q2H PRN; Protocol PRN Reason: Shortness of Breath Apixaban (Eliquis) 2.5 mg PO BID [facility]; Protocol Last Admin: 10/19/18 17:41 Dose: 2.5 mg Arformoterol Tartrate (Brovana) 15 mcg IH [id number] [facility] Last Admin: 10/19/18 21:24 Dose: 15 mcg Budesonide (Pulmicort Respules) 0.5 mg IH [id number] [facility]; Protocol Last Admin: 10/20/18 08:01 Dose: 0.5 mg Ferrous Sulfate (Feosol) 324 mg PO TID [facility] Last Admin: 10/19/18 17:11 Dose: 324 mg Glipizide (Glucotrol) 5 mg PO 0700 [facility]; Protocol Last Admin: 10/20/18 07:48 Dose: 5 mg Insulin Human Regular (Humulin R Low) 0 units SC ACHS [facility]; Protocol Last Admin: 10/20/18 06:48 Dose: Not Given Levothyroxine Sodium (Synthroid) 100 mcg PO 0600 [facility]; Protocol Last Admin: 10/20/18 05:11 Dose: 100 mcg Metoprolol Tartrate (Lopressor) 25 mg PO 0800,1700 [facility]; Protocol Last Admin: 10/20/18 07:48 Dose: 25 mg Pantoprazole Sodium (Protonix Ec Tab) 40 mg PO 0600 [facility]; Protocol Last Admin: 10/20/18 05:11 Dose: 40 mg Prednisone (Prednisone Tab) 20 mg PO 0800 [facility] Last Admin: 10/20/18 07:48 Dose: 20 mg Tamsulosin HCl (Flomax) 0.4 mg PO DAILY [facility]; Protocol Last Admin: 10/19/18 09:26 Dose: 0.4 mg - Labs Labs: 10/16/18 05:30 10/16/18 05:30 - Constitutional Appears: Non-toxic, No Acute Distress - Head Exam Head Exam: NORMAL INSPECTION - Neck Exam Neck Exam: absent: Meningismus - Respiratory Exam Respiratory Exam: Decreased Breath Sounds - Cardiovascular Exam Cardiovascular Exam: +S1, +S2 - GI/Abdominal Exam GI & Abdominal Exam: Soft. absent: Tenderness Assessment and Plan - Assessment and Plan (Free Text) Plan: Assessment probable acute exacerbation of COPD and CHF, clinically improved S/P right lower lobe community-acquired pneumonia history of infected sacral decubitus ulcer with probable osteomyelitis, S/P debridement CAD with chronic CHF DM HTN COPD hypothyroidism psoriasis S/P treatment for HCAP Plan S/P course of Cefepime and Doxycycline - observe off antibiotics since he is at risk for nosocomial infections
--- NOTE | 2018-10-20 22:09 | PN ---
DATE: 10/20/2018 SUBJECTIVE: The patient is seen lying in bed. He is awake and alert, is comfortable. He denies any complaints. PHYSICAL EXAMINATION: GENERAL: An elderly male lying in bed. VITAL SIGNS: Blood pressure 119/55, heart rate 62, respiratory rate 20, and temperature 97.7. HEENT: Normocephalic and atraumatic, positive pallor. NECK: Supple. No JVD. LUNGS: Bilateral equal entry, bilateral equal expansion. No rales. CARDIAC: S1 and S2, regular rate and rhythm. No murmur, no rub. ABDOMEN: Obese, distended, soft, and nontender. Bowel sounds present. EXTREMITIES: No lower extremity edema. LABORATORY DATA: No new labs. MEDICATIONS: List reviewed. ASSESSMENT: 1. Stable chronic kidney disease, stage IV. 2. Anemia of chronic kidney disease. 3. Secondary hyperparathyroidism, compensated. 4. Status post sepsis/urinary tract infection. PLAN: 1. Continue current management. 2. Continue physical therapy. 3. Monitor fingersticks. 4. Check labs in a.m. Belem Campbell MD
[2018-10-21] MEDS: Albuterol-Ipratrop 3 mg / 0.5 (3 ml) UD IH SCH ×4 (03:00→21:50)
[2018-10-21] MEDS: Levothyroxine 100 MCG TAB PO SCH (05:06)
[2018-10-21] MEDS: Pantoprazole 40 mg EC Tab PO SCH (05:06)
[2018-10-21] MEDS: Insulin Reg-LOW-Coverage SC SCH ×2 (06:48→11:29)
[2018-10-21 07:10] LABS: MEAN CELL VOLUME 98.6 fl (80.0-105.0); MEAN CORPUSCULAR HEMOGLOBIN 32.7 pg (25.0-35.0); MEAN CORPUSCULAR HGB CONC 33.1 g/dl (31.0-37.0); MEAN PLATELET VOLUME 11.2 fl (7.0-11.0); RBC 3.67 10^6/uL (3.5-6.1); RED CELL DISTRIBUTION WIDTH 13.6 % (11.5-14.5); WHITE BLOOD COUNT 15.6 10^3/uL (4.5-11.0)
[2018-10-21] MEDS: Budesonide 0.5 mg/2 ml Inhal Susp UD IH SCH ×2 (07:30→21:57)
[2018-10-21] MEDS: Arformoterol 15 mcg/2 ml Inh Sol IH SCH ×2 (07:30→21:50)
[2018-10-21 07:37] LABS: CALCIUM 9.5 mg/dL (8.4-10.5)
--- NOTE | 2018-10-21 08:56 | PN ---
DATE: 10/21/2018 SUBJECTIVE: The patient appears very comfortable this morning. He is not short of breath at rest. PHYSICAL EXAMINATION: VITAL SIGNS: (Last noted in the computer): Temperature is 97.7, pulse 62, respirations 18/20, blood pressure 119/55. Oxygen saturation on nasal cannula is 94% to 98%. HEENT: Normocephalic, atraumatic. No JVD. CARDIOVASCULAR: Systolic ejection murmur at the lower left sternal border. No S3 gallop. LUNGS: Clear bilaterally. EXTREMITIES: Mild edema. No cyanosis, no clubbing. Calves are nontender to palpation. GASTROINTESTINAL: Abdomen is soft, nontender and nondistended. Bowel sounds are positive. SKIN: No acute rash. NEUROLOGIC: Exam limited at the present time. IMPRESSION: 1. Acute bronchitis. 2. Advanced chronic obstructive pulmonary disease. 3. Chronic atrial fibrillation. 4. Mild anemia. 5. Renal insufficiency. PLAN: The patient appears very comfortable this morning. He is not short of breath at rest. He does state to feeling much better overall. On physical exam, his lungs remain clear. In addition, there is no significant alveolar-arterial gradient. I will continue the current nebulizer treatments and decrease the oral steroids. Inputs by Renal and Infectious Disease are also noted. Clinical status of the patient is significantly improved - compared to the initial presentation. However, again, the future status/prognosis for this elderly patient with advanced chronic obstructive pulmonary disease does remain guarded. I will discuss the above with the attending physician. Umair Kauffman MD [facility]
[2018-10-21] MEDS: Insulin Reg-HIGH-Coverage SC SCH ×3 (11:30→21:19)
[2018-10-21 14:26] LABS: URINE BILIRUBIN NEGATIVE (NEGATIVE); URINE BLOOD SMALL (NEGATIVE); URINE GLUCOSE (UA) 250 mg/dL (NEGATIVE); URINE LEUKOCYTE ESTERASE SMALL Leu/uL (NEGATIVE); URINE PROTEIN NEGATIVE mg/dL (<30 mg/dL); URINE UROBILINOGEN 0.2 E.U./dL (<1 E.U./dL)
[2018-10-21 14:27] LABS: URINE APPEARANCE CLEAR (CLEAR); URINE COLOR YELLOW (YELLOW)
--- NOTE | 2018-10-21 14:28 | CP.PCM.PN ---
Subjective - Date & Time of Evaluation Date of Evaluation: 10/21/18 Time of Evaluation: 11:15 - Subjective Subjective: Comfortable, no fevers, not in distress. Objective - Vital Signs/Intake and Output Vital Signs (last 24 hours): Temp Pulse Resp BP Pulse Ox 97.1 F L 64 18 101/45 L 96 10/21/18 10:00 10/21/18 10:00 10/21/18 10:00 10/21/18 10:00 10/21/18 10:00 Intake and Output: 10/21/18 10/21/18 06:59 18:59 Intake Total 420 Output Total 600 Balance -600 420 - Medications Medications: Current Medications Albuterol/Ipratropium (Duoneb 3 Mg/0.5 Mg (3 Ml) Ud) 3 ml IH [id number] [facility]; Protocol Last Admin: 10/21/18 13:37 Dose: 3 ml Albuterol/Ipratropium (Duoneb 3 Mg/0.5 Mg (3 Ml) Ud) 3 ml IH Q2H PRN; Protocol PRN Reason: Shortness of Breath Apixaban (Eliquis) 2.5 mg PO BID [facility]; Protocol Last Admin: 10/21/18 09:14 Dose: 2.5 mg Arformoterol Tartrate (Brovana) 15 mcg IH [id number] [facility] Last Admin: 10/21/18 07:30 Dose: 15 mcg Budesonide (Pulmicort Respules) 0.5 mg IH [id number] [facility]; Protocol Last Admin: 10/21/18 07:30 Dose: 0.5 mg Ferrous Sulfate (Feosol) 324 mg PO TID [facility] Last Admin: 10/21/18 09:14 Dose: 324 mg Glipizide (Glucotrol) 5 mg PO 0700 [facility]; Protocol Last Admin: 10/21/18 07:59 Dose: 5 mg Insulin Human Regular (Humulin R High) 0 units SC ACHS [facility]; Protocol Last Admin: 10/21/18 11:30 Dose: Not Given Levothyroxine Sodium (Synthroid) 100 mcg PO 0600 [facility]; Protocol Last Admin: 10/21/18 05:06 Dose: 100 mcg Metoprolol Tartrate (Lopressor) 25 mg PO 0800,1700 [facility]; Protocol Last Admin: 10/21/18 08:00 Dose: Not Given Pantoprazole Sodium (Protonix Ec Tab) 40 mg PO 0600 [facility]; Protocol Last Admin: 10/21/18 05:06 Dose: 40 mg Tamsulosin HCl (Flomax) 0.4 mg PO DAILY [facility]; Protocol Last Admin: 10/21/18 09:14 Dose: 0.4 mg - Labs Labs: 10/21/18 06:45 10/21/18 06:45 - Constitutional Appears: Chronically Ill - Head Exam Head Exam: NORMAL INSPECTION - Respiratory Exam Respiratory Exam: Decreased Breath Sounds - Cardiovascular Exam Cardiovascular Exam: +S1, +S2 - GI/Abdominal Exam GI & Abdominal Exam: Soft. absent: Tenderness Assessment and Plan - Assessment and Plan (Free Text) Assessment: Assessment probable acute exacerbation of COPD and CHF, clinically improved S/P right lower lobe community-acquired pneumonia history of infected sacral decubitus ulcer with probable osteomyelitis, S/P debridement CAD with chronic CHF DM HTN COPD hypothyroidism psoriasis S/P treatment for HCAP Plan S/P course of Cefepime and Doxycycline - observe off antibiotics since he is at risk for hospital-acquired infections
[2018-10-21 14:37] LABS: URINE WBC 15 - 20 /hpf (0-6)
[2018-10-21 14:38] LABS: URINE AMORPHOUS SEDIMENT FEW /hpf; URINE BACTERIA MANY /hpf
[2018-10-21 14:39] LABS: URINE COARSE GRANULAR CAST TRACE /hpf; URINE FINE GRANULAR CAST 0 - 2 /hpf
--- NOTE | 2018-10-21 19:38 | PN ---
DATE: 10/21/2018 SUBJECTIVE: The patient is seen, sitting in chair. He is awake. He is alert. He is comfortable. He denies any nausea or vomiting. Denies any shortness of breath. Denies any cough. Denies any dysuria. PHYSICAL EXAMINATION: GENERAL: Elderly male sitting in chair. VITAL SIGNS: Blood pressure 101/45, heart rate 64, respiratory rate 18, temperature 97.1. HEENT: Normocephalic, atraumatic, positive pallor. NECK: Supple, no JVD. LUNGS: Bilateral equal entry, bilaterally equal expansion, no rales. CARDIAC: S1 and S2, regular rate and rhythm. No murmur, no rub. ABDOMEN: Obese, distended, soft, nontender, bowel sounds present. EXTREMITIES: No lower extremity edema. LABORATORY DATA: WBC 15.6, hemoglobin 12, hematocrit 36, platelets 203. Sodium 138, potassium 5.3, chloride 104, CO2 of 23, BUN 62, creatinine 2.4, glucose 102, calcium 9.5, phosphorus 4.5. CURRENT MEDICATIONS: Brovana, DuoNeb, Eliquis, Feosol 324 t.i.d., Flomax 0.4, Glucotrol 5, Lopressor 25 b.i.d., Protonix 40, Synthroid 100. ASSESSMENT: 1. Leukocytosis,? secondary to prednisone. 2. Stable chronic kidney disease stage IV. 3. Mild hyperkalemia. 4. Hys-hxtqtke-pvbsdfcox diabetes mellitus poorly controlled. 5. Status post urinary tract infection/sepsis. PLAN: 1. Check urinalysis and urine culture. 2. Monitor WBC count. 3. Taper steroids. 4. Monitor potassium. Belem Campbell MD
[2018-10-22] MEDS: Albuterol-Ipratrop 3 mg / 0.5 (3 ml) UD IH SCH ×4 (03:35→19:39)
[2018-10-22] MEDS: Pantoprazole 40 mg EC Tab PO SCH (05:15)
[2018-10-22] MEDS: Levothyroxine 100 MCG TAB PO SCH (05:15)
[2018-10-22] MEDS: Insulin Reg-HIGH-Coverage SC SCH ×4 (06:33→21:32)
[2018-10-22] MEDS: Arformoterol 15 mcg/2 ml Inh Sol IH SCH ×2 (07:38→19:39)
[2018-10-22] MEDS: Budesonide 0.5 mg/2 ml Inhal Susp UD IH SCH ×3 (07:39→19:40)
--- NOTE | 2018-10-22 09:17 | PN ---
DATE: 10/22/2018 SUBJECTIVE: The patient appears very comfortable this morning. He is not short of breath at rest. PHYSICAL EXAMINATION: VITAL SIGNS: Temperature 97.6, pulse 66, respirations 18/20, blood pressure 110/60. Oxygen saturation on nasal cannula is 94-96%. HEENT: Normocephalic, atraumatic. NECK: No JVD. CARDIOVASCULAR: Systolic ejection murmur at the lower left sternal border. No S3 gallop. LUNGS: Clear bilaterally. EXTREMITIES: Mild edema. No cyanosis. No clubbing. Calves are nontender to palpation. GI: Abdomen is soft, nontender and nondistended. Bowel sounds are positive. SKIN: No acute rash. NEUROLOGIC: Exam limited at the present time. IMPRESSION: 1. Acute bronchitis. 2. Advanced chronic obstructive pulmonary disease. 3. Chronic atrial fibrillation. 4. Mild anemia. 5. Renal insufficiency. PLAN: The patient appears very comfortable this morning. He is not short of breath at rest. He does state to feeling much better overall. On physical exam, his lungs remain clear. In addition, there is no significant alveolar-arterial gradient. I will continue with the current nebulizer treatments and low-dose oral steroids (decreased yesterday) for now. Inputs by Renal, Infectious Disease are also noted. Clinical status of the patient is significantly improved - compared to the initial presentation. However, again, the future status/prognosis for this elderly patient with advanced chronic obstructive pulmonary disease, does remain guarded. I will discuss the above with the attending physician. Umair Kauffman MD [facility]
--- NOTE | 2018-10-22 13:30 | CP.PCM.PN ---
Subjective - Date & Time of Evaluation Date of Evaluation: 10/22/18 Time of Evaluation: 10:35 - Subjective Subjective: Resting comfortably in bed, no fevers, not short of breath at rest. Objective - Vital Signs/Intake and Output Vital Signs (last 24 hours): Temp Pulse Resp BP Pulse Ox 97.6 F 59 L 20 105/45 L 94 L 10/21/18 16:00 10/22/18 08:00 10/21/18 16:00 10/22/18 08:00 10/21/18 16:00 Intake and Output: 10/22/18 10/22/18 06:59 18:59 Output Total 800 Balance -800 - Medications Medications: Current Medications Albuterol/Ipratropium (Duoneb 3 Mg/0.5 Mg (3 Ml) Ud) 3 ml IH [id number] [facility]; Protocol Last Admin: 10/22/18 13:20 Dose: 3 ml Albuterol/Ipratropium (Duoneb 3 Mg/0.5 Mg (3 Ml) Ud) 3 ml IH Q2H PRN; Protocol PRN Reason: Shortness of Breath Apixaban (Eliquis) 2.5 mg PO BID [facility]; Protocol Last Admin: 10/22/18 09:32 Dose: 2.5 mg Arformoterol Tartrate (Brovana) 15 mcg IH [id number] [facility] Last Admin: 10/22/18 07:38 Dose: 15 mcg Budesonide (Pulmicort Respules) 0.5 mg IH [id number] [facility]; Protocol Last Admin: 10/22/18 07:39 Dose: 0.5 mg Ferrous Sulfate (Feosol) 324 mg PO TID [facility] Last Admin: 10/22/18 09:33 Dose: 324 mg Glipizide (Glucotrol) 5 mg PO 0700 [facility]; Protocol Last Admin: 10/22/18 08:00 Dose: 5 mg Insulin Human Regular (Humulin R High) 0 units SC ACHS [facility]; Protocol Last Admin: 10/22/18 12:19 Dose: 2 units Levothyroxine Sodium (Synthroid) 100 mcg PO 0600 [facility]; Protocol Last Admin: 10/22/18 05:15 Dose: 100 mcg Metoprolol Tartrate (Lopressor) 25 mg PO 0800,1700 [facility]; Protocol Last Admin: 10/22/18 08:00 Dose: Not Given Pantoprazole Sodium (Protonix Ec Tab) 40 mg PO 0600 [facility]; Protocol Last Admin: 10/22/18 05:15 Dose: 40 mg Tamsulosin HCl (Flomax) 0.4 mg PO DAILY [facility]; Protocol Last Admin: 10/22/18 09:33 Dose: 0.4 mg - Labs Labs: 10/21/18 06:45 10/21/18 06:45 - Constitutional Appears: Chronically Ill - Head Exam Head Exam: NORMAL INSPECTION - Respiratory Exam Respiratory Exam: Decreased Breath Sounds - Cardiovascular Exam Cardiovascular Exam: +S1, +S2 - GI/Abdominal Exam GI & Abdominal Exam: Soft. absent: Tenderness Assessment and Plan - Assessment and Plan (Free Text) Plan: Assessment probable acute exacerbation of COPD and CHF, clinically improved S/P right lower lobe community-acquired pneumonia history of infected sacral decubitus ulcer with probable osteomyelitis, S/P debridement CAD with chronic CHF DM HTN COPD hypothyroidism psoriasis S/P treatment for HCAP Plan S/P course of Cefepime and Doxycycline - observe off antibiotics since he is at risk for healthcare-associated infections
--- NOTE | 2018-10-22 14:22 | PN ---
DATE: 10/21/2018 DAILY PROGRESS NOTE SUBJECTIVE: The patient is a 73-year-old male who has been hospitalized several times over the past with acute exacerbation of chronic COPD, hypoglycemia, sepsis from the decubitus ulcer. He was in a subacute care facility for quite some time, was discharged to home, but after approximately 2 weeks when he became acutely short of breath. He presented to the emergency room and was admitted to the medical floor on 10/11/2018, and was treated for community-acquired pneumonia. He improved and on 10/15 was transferred to the Transitional Care Unit for intravenous antibiotics and physical therapy. Up to this point, the patient has been doing very well. His antibiotics have been discontinued. He is continuing with physical therapy. When seen, he is in good spirits, awake, alert and oriented and feeling well. He is well motivated with physical therapy. We will continue to follow with the patient closely off antibiotics. Nii Ramon MD [facility]
[2018-10-22 16:33] VITALS: RESP 18
--- NOTE | 2018-10-22 19:40 | PN ---
DATE: 10/22/2018 SUBJECTIVE: The patient is currently seen in bed in the TCU. He is entirely comfortable. He anticipates being discharged tomorrow. The patient is currently off steroid therapy. There was some concern about an elevation of his white blood cell count. Perhaps secondary to use of steroids. PHYSICAL EXAMINATION: VITAL SIGNS: Blood pressure 105/45, temperature 97.6, respiratory rate of 20 with a pulse of 59. HEENT: Shows him to be normocephalic, atraumatic. Conjunctivae are pink. Sclerae nonicteric. NECK: Supple. No neck vein distention. CHEST: Clear to auscultation and percussion with slight decreased breath sounds at the bases. No rales, rhonchi or wheezing. CARDIOVASCULAR: Shows a regular rate and rhythm with a soft systolic murmur left lower sternal border.. No S3, no S4, no rub. ABDOMEN: Soft. Bowel sounds normal. Mild to moderate obesity. Nondistended. No organomegaly. No masses. EXTREMITIES: Show no lower extremity cyanosis, clubbing or edema. LABORATORY DATA AND IMAGING STUDIES: White blood cell count 15.6, hemoglobin of 12.0 with a platelet count of 203,000. Chemistries show potassium of 5.3 from yesterday. BUN 62 with a creatinine of 2.4. Baseline creatinine had been in the upper 1 range. Baseline BUN had been in the upper 20 range. ASSESSMENT: Acute renal failure superimposed on chronic kidney disease stage III/IV. His renal parameters remain stable. The patient remains mildly prerenal. The patient had been on steroids until 1 day ago. The patient is currently not receiving any diuretic therapy. It is quite possible the patient has a new baseline. Borderline to mild hyperkalemia. We will repeat a potassium level prior to discharge tomorrow. The patient will continue on a low-potassium diet in light of his history of chronic kidney disease. He is not taking any medications which should elevate his potassium significantly. Status post possible sepsis. No evidence for urinary tract infection. Positive bronchitis. No evidence for pneumonia. The patient had completed a course of antibiotic therapy back in acute care. History of [id number] diabetes mellitus. The patient is back on oral agents with sliding scale insulin being given p.r.n. basis only. The patient is felt to have underlying diabetic nephropathy. History of hypertension. Blood pressure controlled on present medication. He does remain on low-dose beta-cassandra therapy. History of hypothyroidism. The patient continues on thyroid replacement therapy. History of chronic obstructive pulmonary disease on inhalation therapy, status post oral steroid therapy. 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 PLAN: 1. We will repeat his lab work prior to discharge tomorrow in light of his elevation of his white blood cell count. 2. We will take note of his BUN and creatinine and perhaps being off steroids. His BUN will drift back towards his baseline along with a lowering of his creatinine level. 3. At present, the patient does not require any diuretic therapy and I will hold this as his BUN and creatinine are above baseline levels. 4. From renal standpoint, the patient is stable for discharge tomorrow with the understanding that outpatient blood work should be checked in the next several weeks. Miguel Whelan MD
[2018-10-23] MEDS: Albuterol-Ipratrop 3 mg / 0.5 (3 ml) UD IH SCH ×3 (01:39→13:25)
[2018-10-23] MEDS: Pantoprazole 40 mg EC Tab PO SCH (05:43)
[2018-10-23] MEDS: Levothyroxine 100 MCG TAB PO SCH (05:43)
[2018-10-23] MEDS: Insulin Reg-HIGH-Coverage SC SCH ×2 (06:46→12:29)
[2018-10-23 07:08] LABS: HEMOGLOBIN 11.7 g/dL (14.0-18.0); MEAN CELL VOLUME 98.9 fl (80.0-105.0); MEAN CORPUSCULAR HEMOGLOBIN 32.7 pg (25.0-35.0); MEAN CORPUSCULAR HGB CONC 33.1 g/dl (31.0-37.0); MEAN PLATELET VOLUME 10.9 fl (7.0-11.0); RBC 3.58 10^6/uL (3.5-6.1); RED CELL DISTRIBUTION WIDTH 13.9 % (11.5-14.5); WHITE BLOOD COUNT 17.4 10^3/uL (4.5-11.0)
[2018-10-23 07:30] LABS: ALB/GLOB RATIO 1.1 (1.1-1.8); ALBUMIN 3.7 g/dL (3.0-4.8); CALCIUM 9.1 mg/dL (8.4-10.5)
[2018-10-23] MEDS: Arformoterol 15 mcg/2 ml Inh Sol IH SCH (07:30)
[2018-10-23] MEDS: Budesonide 0.5 mg/2 ml Inhal Susp UD IH SCH (07:30)
--- NOTE | 2018-10-23 08:50 | PN ---
DATE: 10/23/2018 PULMONARY NOTE SUBJECTIVE: The patient appears comfortable this morning. He is not short of breath at rest. PHYSICAL EXAMINATION VITAL SIGNS: Last temperature recorded is 97.4, pulse this morning is 88, respiratory rate 18, blood pressure 108/60. Oxygen saturation on nasal cannula is 98%. HEENT: Normocephalic, atraumatic. NECK: No JVD. CARDIOVASCULAR: Systolic ejection murmur at the lower left sternal border. No S3 gallop. LUNGS: Clear bilaterally. EXTREMITIES: Mild edema. No cyanosis. No clubbing. Calves are nontender to palpation. GI: Abdomen is soft, nontender and nondistended. Bowel sounds are positive. SKIN: No acute rash. NEUROLOGIC: Limited at the present time. IMPRESSION: 1. Acute bronchitis. 2. Advanced chronic obstructive pulmonary disease. 3. Chronic atrial fibrillation. 4. Mild anemia. 5. Renal insufficiency. PLAN: The patient appears very comfortable this morning. He is not short of breath at rest. He does state to feeling much better overall. On physical exam, his lungs remain clear. In addition, there is a significant decrease in the alveolar-arterial gradient. I will continue the current nebulizer treatments and inhaled steroids for now. Oral steroids have been discontinued. Antibiotic therapy has been discontinued. Clinical status of the patient is significantly improved overall. However, again, the future status/prognosis for this elderly patient with advanced chronic obstructive pulmonary disease - does remain guarded. All are aware. I will discuss the above with the attending physician. Umair Kauffman MD [facility]
[2018-10-23 16:43] VITALS: BP 119/64; PULSE 69; TEMP 97.6; O2SAT 95
--- NOTE | 2018-10-23 20:18 | PN ---
DATE: 10/23/2018 SUBJECTIVE: The patient is seen lying in bed. He is awake. He is alert. He is comfortable. He denies any chest pain, shortness of breath, cough, or dysuria. PHYSICAL EXAMINATION: GENERAL: Elderly male, lying in bed. VITAL SIGNS: Blood pressure 108/60, heart rate 96, respiratory rate 18, temperature 97.4. HEENT: Normocephalic, atraumatic. Positive pallor. NECK: Supple. No JVD. LUNGS: Bilateral equal entry. Bilateral equal expansion. No rales. CARDIAC: S1 and S2. Regular rate and rhythm. No murmur. No rub. ABDOMEN: Obese, distended, soft, nontender. Bowel sounds present. EXTREMITIES: No lower extremity edema. INTAKE AND OUTPUT: Not charted. LABORATORY DATA: WBC 17.4, hemoglobin 11.7, hematocrit 35, platelets 202. Sodium 136, potassium 4.7, chloride 105, CO2 of 21, BUN 56, creatinine 2.1, glucose 158, calcium 9.1. AST 21, ALT 32, albumin 3.7. Urinalysis: Yellow, clear, pH 6, specific gravity 1.020, protein negative, glucose negative, leukocyte esterase small. Urine culture, no growth. CURRENT MEDICATIONS: Brovana, Eliquis, Feosol, Flomax, Glucotrol 5 mg, Lopressor 25 mg b.i.d., Protonix, Synthroid. ASSESSMENT AND PLAN: 1. Stable chronic kidney disease, stage IV. 2. Hyperkalemia, resolved. 3. Anemia of chronic kidney disease, mild. 4. Elevated white blood cell count, ? secondary to steroids. 5. Poorly controlled diabetes. 6. Status post urinary tract infection. PLAN: 1. Continue current management. 2. No evidence of any infection. 3. No objection to discharge. 4. Outpatient followup. Belem Campbell MD
== END 2018-10-23 17:20 | disposition home or self-care (01) | DRG 871 ==
LOC: TRCU 18:24
PROVIDERS: ADMIT Internal Medicine; ATTEND Internal Medicine
PROC: F07Z9FZ Gait Training/Functional Ambulation Treatment using Assistive, Adaptive, Supportive or Protective Equipment (ICD-10-PCS; principal; 2018-10-16)
PROC: F07M6ZZ Therapeutic Exercise Treatment of Musculoskeletal System - Whole Body (ICD-10-PCS; 2018-10-16)
PROC: F08Z0ZZ Bathing/Showering Techniques Treatment (ICD-10-PCS; 2018-10-16)
PROC: F08Z1ZZ Dressing Techniques Treatment (ICD-10-PCS; 2018-10-16)
PROC: F08Z2ZZ Grooming/Personal Hygiene Treatment (ICD-10-PCS; 2018-10-16)
DX: A41.9 Sepsis, unspecified organism (principal); J18.9 Pneumonia, unspecified organism; I13.0 Hypertensive heart and chronic kidney disease with heart failure and stage 1 through stage 4 chronic kidney disease, or unspecified chronic kidney disease; J44.0 Chronic obstructive pulmonary disease with (acute) lower respiratory infection; J44.1 Chronic obstructive pulmonary disease with (acute) exacerbation; N17.9 Acute kidney failure, unspecified; N18.4 Chronic kidney disease, stage 4 (severe); N25.81 Secondary hyperparathyroidism of renal origin; N39.0 Urinary tract infection, site not specified; D63.1 Anemia in chronic kidney disease; E03.9 Hypothyroidism, unspecified; E11.22 Type 2 diabetes mellitus with diabetic chronic kidney disease; E11.65 Type 2 diabetes mellitus with hyperglycemia; E11.69 Type 2 diabetes mellitus with other specified complication; E87.5 Hyperkalemia; F17.200 Nicotine dependence, unspecified, uncomplicated; I25.10 Atherosclerotic heart disease of native coronary artery without angina pectoris; I48.2 Chronic atrial fibrillation; I50.9 Heart failure, unspecified; J20.9 Acute bronchitis, unspecified; L40.9 Psoriasis, unspecified; T38.0X5A Adverse effect of glucocorticoids and synthetic analogues, initial encounter; Y95 Nosocomial condition; Z79.01 Long term (current) use of anticoagulants; Z79.84 Long term (current) use of oral hypoglycemic drugs; Z87.440 Personal history of urinary (tract) infections; Z87.820 Personal history of traumatic brain injury

== ENCOUNTER 2018-11-01 15:17 | Inpatient (IN) | payer MEDICARE, OTHER ==
[2018-11-01 15:18] VITALS: PULSE 134
[2018-11-01 15:20] VITALS: BMI 29.1
--- NOTE | 2018-11-01 15:32 | ED PDOC ---
Arrival/HPI - General Chief Complaint: Altered Mental Status Time Seen by Provider: 11/01/18 15:19 Historian: EMS - History of Present Illness Narrative History of Present Illness (Text): 11/01/18 15:28 A 73 year old male, whose past medical history includes Afib on Eliqius, COPD, CHF, and hyperglycemia, is brought into the emergency department via EMS for further evaluation of hypoglyecemia. As per EMS, patient's daughter, who it the power of commonwealth attorney, found the patient altered at home. She called EMS. Patient was found at home with black stool and urine all over him. Patient is unsure why he is here. ROS/ HPI limited due to patients altered mental status. PMD: Dr. Nicki Ramon Time/Duration: Prior to Arrival Symptom Onset: Sudden Symptom Course: Unchanged Activities at Onset: Rest, Light Context: Home Past Medical History - Provider Review Nursing Documentation Reviewed: Yes - Infectious Disease Hx of Infectious Diseases: None - Tetanus Immunization Tetanus Immunization: Unknown - Cardiac Hx Cardiac Disorders: Yes (Afib) Hx Congestive Heart Failure: Yes - Pulmonary Hx Chronic Obstructive Pulmonary Disease (COPD): Yes - Neurological Hx Neurological Disorder: No - HEENT Hx HEENT Disorder: No - Renal Hx Renal Failure: Yes - Endocrine/Metabolic Hx Diabetes Mellitus Type 2: Yes Hx Hypothyroidism: Yes - Hematological/Oncological Hx Cancer: No - Integumentary Hx Psoriasis: Yes - Musculoskeletal/Rheumatological Hx Falls: Yes - Gastrointestinal Hx Gastrointestinal Disorders: No - Genitourinary/Gynecological Hx Genitourinary Disorders: Yes (URGENCY) - Psychiatric Hx Psychophysiologic Disorder: (unknown) Hx Depression: No Hx Emotional Abuse: No Hx Physical Abuse: No Hx Substance Use: No - Past Surgical History Past Surgical History: Unable to Obtain - Surgical History Hx Mastectomy: No - Anesthesia Hx Anesthesia: Yes Hx Anesthesia Reactions: No Hx Malignant Hyperthermia: No - Suicidal Assessment Feels Threatened In Home Enviroment: No Family/Social History - Physician Review Nursing Documentation Reviewed: Yes Family/Social History: No Known Family HX Smoking Status: Former Smoker Hx Alcohol Use: Yes (social drinking) Hx Substance Use: No Hx Substance Use Treatment: No Allergies/Home Meds Allergies/Adverse Reactions: Allergies No Known Allergies Allergy (Verified 10/15/18 20:08) PER [facility] NURSE Review of Systems - Physician Review All systems were reviewed & negative as marked: Yes - Review of Systems Systems not reviewed;Unavailable: Altered Mental Status Physical Exam - Physical Exam Physical Exam Limitations: Altered Mental Status - Systems Exam Head: Present: Atraumatic, Normocephalic Pupils: Present: PERRL Extroacular Muscles: Present: EOMI Conjunctiva: Present: Normal Mouth: Present: Moist Mucous Membranes Neck: Present: Normal Range of Motion Respiratory/Chest: Present: Clear to Auscultation, Good Air Exchange. No: Respiratory Distress, Accessory Muscle Use Cardiovascular: Present: Regular Rate and Rhythm, Normal S1, S2. No: Murmurs Abdomen: No: Tenderness, Distention, Peritoneal Signs Rectal: Present: Normal Rectal Tone, Other (Positive guaiac. Black stool. 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 No: Hemorrhoids Back: Present: Normal Inspection Upper Extremity: Present: Normal Inspection. No: Cyanosis, Edema Lower Extremity: Present: Normal Inspection. No: Edema Neurological: Present: GCS=15, CN II-XII Intact, Speech Normal Skin: Present: Warm, Dry, Normal Color. No: Rashes Psychiatric: Present: Alert, Normal Insight, Normal Concentration. No: Oriented x 3 (Oriented x 2) Medical Decision Making ED Course and Treatment: 11/01/18 15:32 Impression: A 73 year old male is brought into the emergency department via EMS for further evaluation of hypoglycemia and altered mental status. Differential Diagnosis included but are not limited to: Hypoglycemia secondary to GI bleed vs infectious Plan: -- EKG -- Chest X-ray -- Labs -- Urinalysis -- Blood/ Urine Culture -- Reassess and disposition Prior Visits: Notes and results from previous visits were reviewed. Patient was last seen in the emergency department on 10/10/18 for a complaint of shortness of breath. Patient was hospitalized. Progress Notes: 11/01/18 16:55 Patient improving with IVF. FS 97 in ED. Stool was black on exam and patient was covered with feces and urine. Lactic Acid is 2.0. WBC is 14 which is improved from last visit to the ED. LA is elevated due to GI Bleed. 11/01/18 17:[address] Malcom Ramon who will admit the patient to his service. We agreed to treat with antibiotics at this time. - Lab Interpretations I have reviewed the lab results: Yes - EKG Interpretation EKG Interpretation (Text): 11/01/18 16:03 EKG: Ordered, reviewed, and independently interpreted the EKG. Rate : 110 BPM Rhythm : Sinus Tachycardia Interpretation : Otherwise normal. Interpreted by ED Physician: Yes Type: 12 lead EKG - Scribe Statement The provider has reviewed the documentation as recorded by the Scribe Gale Cavazos Provider Scribe Attestation: All medical record entries made by the Scribe were at my direction and personally dictated by me. I have reviewed the chart and agree that the record accurately reflects my personal performance of the history, physical exam, medical decision making, and the department course for this patient. I have also personally directed, reviewed, and agree with the discharge instructions and disposition. Disposition/Present on Arrival - Present on Arrival Any Indicators Present on Arrival: No History of DVT/PE: No History of Uncontrolled Diabetes: No Urinary Catheter: No History of Decub. Ulcer: No History Surgical Site Infection Following: None - Disposition Have Diagnosis and Disposition been Completed?: Yes Diagnosis: GI bleed, Leukocytosis Disposition: HOSPITALIZED Disposition Time: 16:59 Patient Plan: Admission Condition: FAIR Forms: [employer] ([place]ux[place]ish)
[2018-11-01] MEDS ORDERED: Sodium Chloride 0.9% 1,000 ML IV STA (16:02)
[2018-11-01 16:24] LABS: VENOUS BLOOD GAS BASE EXCESS -7.3 mmol/L (0.0-2.0); VENOUS BLOOD GAS PO2 17 mm/Hg (30-55); VENOUS BLOOD PH 7.27 (7.32-7.43)
[2018-11-01 16:25] LABS: BASO # 0.02 K/mm3 (0.0-2.0); BASO % 0.1 % (0.0-3.0); EOS # 0.1 (0.0-0.7); EOS % 0.5 % (1.5-5.0); LYMPH # 0.8 (1.2-3.4); LYMPH % 5.5 % (22.0-35.0); MEAN CELL VOLUME 99.7 fl (80.0-105.0); MEAN CORPUSCULAR HEMOGLOBIN 32.8 pg (25.0-35.0); MEAN CORPUSCULAR HGB CONC 32.9 g/dl (31.0-37.0); MEAN PLATELET VOLUME 10.7 fl (7.0-11.0); MONO # 0.6 (0.1-0.6); MONO % 4.5 % (1.0-6.0); RBC 3.66 10^6/uL (3.5-6.1); RED CELL DISTRIBUTION WIDTH 13.7 % (11.5-14.5)
[2018-11-01 16:32] LABS: INR 1.47; PARTIAL THROMBOPLASTIN TIME 38.1 Seconds (26.9-38.3); PROTHROMBIN TIME 16.3 SECONDS (9.4-12.5)
[2018-11-01 16:43] LABS: ALBUMIN 3.8 g/dL (3.0-4.8); CALCIUM 8.6 mg/dL (8.4-10.5)
[2018-11-01] MEDS ORDERED: cefTRIAXone 1 gm 1 GM/100 ML BAG IVPB STA (16:58)
[2018-11-01 16:59] LABS: URINE BILIRUBIN NEGATIVE (NEGATIVE); URINE BLOOD TRACE-INTACT (NEGATIVE); URINE GLUCOSE (UA) 100 mg/dL (NEGATIVE); URINE LEUKOCYTE ESTERASE NEGATIVE Leu/uL (NEGATIVE); URINE PROTEIN TRACE mg/dL (<30 mg/dL); URINE UROBILINOGEN 0.2 E.U./dL (<1 E.U./dL)
[2018-11-01] MEDS: Dextrose 5%/0.45% NS 500 ML IV SCH (17:13)
[2018-11-01 17:18] LABS: URINE APPEARANCE CLEAR (CLEAR); URINE COLOR YELLOW (YELLOW)
--- NOTE | 2018-11-01 17:43 | RAD ---
HISTORY: Sepsis Patient COMPARISON: Chest x-ray performed 10/10/18 TECHNIQUE: Chest, one view. FINDINGS: Examination limited by habitus. LUNGS: No focal consolidation. 8 mm right lower lobe nodular opacity, possibly granuloma. Please note that chest x-ray has limited sensitivity for the detection of pulmonary masses. PLEURA: No significant pleural effusion identified. No definite pneumothorax . CARDIOVASCULAR: Heart size appears within normal limits. Atherosclerotic calcifications of the aorta. OSSEOUS STRUCTURES: No acute osseous abnormality identified. VISUALIZED UPPER ABDOMEN: Unremarkable. OTHER FINDINGS: None. IMPRESSION: No focal consolidation. 8 mm right lower lobe nodular opacity, possibly granuloma. Outpatient CT of the chest may be considered for further evaluation if indicated.
[2018-11-01 20:11] LABS: VENOUS BLOOD GAS BASE EXCESS -5.3 mmol/L (0.0-2.0); VENOUS BLOOD GAS PO2 26 mm/Hg (30-55); VENOUS BLOOD PH 7.29 (7.32-7.43)
[2018-11-02] MEDS: Levothyroxine 100 MCG TAB PO SCH (10:56)
[2018-11-02] MEDS: Dextrose 5%/0.45% NS 500 ML IV SCH ×2 (12:10→23:50)
[2018-11-02] MEDS: Albuterol-Ipratrop 3 mg / 0.5 (3 ml) UD IH SCH ×2 (13:20→19:12)
[2018-11-02] MEDS ORDERED: Insulin Reg-HIGH-Coverage SC ONE (17:03)
[2018-11-02] MEDS: Budesonide 0.5 mg/2 ml Inhal Susp UD IH SCH (19:12)
[2018-11-02] MEDS: Arformoterol 15 mcg/2 ml Inh Sol IH SCH (19:12)
--- NOTE | 2018-11-02 20:44 | PN ---
DATE: 11/02/2018 SUBJECTIVE: The patient is a 73-year-old male with a history of atrial fibrillation, chronic obstructive pulmonary disease, congestive heart failure, hypothyroidism, psoriasis, traumatic brain injury, status post fall from a roof many years ago, history of MRSA sepsis secondary to a sacral decubitus, who was admitted yesterday with heme-positive stools, mental status changes, and hypoglycemia. Overnight, the patient received D5 and half normal saline. Earlier today, the patient was again hypoglycemic in the 60s, it later improved to the 70s and after lunchtime was above 200. The patient has chronic renal failure. His BUN is 38, creatinine 2.6. GFR is 29. We are starting him on metformin 500 mg once a day. Urinalysis showed negative white blood cells, 5-10 red blood cells, and less than 100,000 colonies of E. coli. ASSESSMENT AND PLAN: We are treating the patient with Rocephin 1 g intravenous daily. We are continuing with intravenous fluids. We asked Dr. Lagos, the laborer car barn, to consult on the patient and we will continue to follow the patient closely. Morning labs have been ordered. Nii Ramon MD
--- NOTE | 2018-11-02 21:42 | HP ---
DATE OF EXAM: 11/02/2018 ADMITTING HISTORY AND PHYSICAL HISTORY OF PRESENT ILLNESS: The patient is a 73-year-old male, he was admitted to the [facility] after his daughter who has power of software project lead called because the patient had mental status changes and was short of breath. As per the patient, the shortness of breath was a rather sudden onset. He is known to have a past medical history positive for COPD. He was recently discharged from the hospital with a COPD exacerbation. He has been hospitalized several times over the past year with atrial fibrillation, CHF, COPD and sepsis secondary to a sacral decubitus ulcer. PAST MEDICAL HISTORY: Positive for atrial fibrillation, chronic obstructive pulmonary disease, congestive heart failure, hypothyroidism, psoriasis, traumatic brain injury, status post fall from a roof many many years ago. He has been positive for MRSA sepsis from his sacral decubiti in the past. SOCIAL HISTORY: He has a history of cigarette smoking. He drinks alcohol only socially. ALLERGIES: HE HAS NO KNOWN MEDICAL ALLERGIES. MEDICATIONS: At the time of admission include Zanaflex 4 mg four times a day, tramadol 50 mg three times a day, hydralazine 10 mg four times a day, DuoNeb nebulizer treatments every 6 hours as needed, Xanax 0.25 mg every 6 hours as needed, Flomax 0.4 mg once a day, metoprolol tartrate 25 mg twice a day, Neurontin 300 mg three times a day, Pulmicort Respules 0.5 mg inhaled every 12 hours, Synthroid 100 mcg daily and Eliquis 2.5 mg twice a day. PHYSICAL EXAMINATION: GENERAL: In the emergency room, the patient was awake, alert and oriented. As per the patient, he was incontinent of stools and urine while being carried down the stairs from his apartment by the ambulance squad. HEAD, EYES, EARS, NOSE AND THROAT: Unremarkable. NECK: Supple with no lymphadenopathy. No goiter. LUNGS: Clear to auscultation and percussion. HEART: Regular, tachycardic. No murmurs are appreciated. ABDOMEN: Soft and nontender. RECTAL: Shows a positive guaiac stools as per emergency room chart. EXTREMITIES: Free of cyanosis, clubbing or edema. SKIN: Warm and dry. The sacral decubitus ulcer is now a extremely shallow skin breakdown approximately 3 x 4 cm, it is clean and dry does not appear to be infected. NEUROLOGIC: The patient is slow to respond but she is awake and alert. LABORATORY DATA: In the emergency room, he was found to be hypoglycemic with a glucose of 36, this responded to some D50 and it improved to the low 100s. Sodium is 139, potassium is 4.5, BUN and creatinine are 38 and 2.6 which is just about baseline for this patient. GFR is 29. Hemoglobin is 12.0, hematocrit 36.5, white blood cell count is 14.0, and platelet count is 235. Procalcitonin is low at 0.14. Urinalysis is showing 5-10 red blood cells per high-powered field. No white blood cells are appreciated. IMPRESSION AND PLAN: So, the patient is admitted with heme-positive stools, mental status changes, and hypoglycemia. He will be reevaluated in the morning. He is started on IV fluids. Nii Ramon MD
[2018-11-02] MEDS ORDERED: Insulin Reg-HIGH-Coverage SC SCH (22:00)
[2018-11-02] MEDS: Insulin Reg-HIGH-Coverage SC SCH (22:06)
[2018-11-03] MEDS ORDERED: Insulin Regular 1 UNITS/0.01 ML ML SC ONE (02:26)
[2018-11-03] MEDS: Albuterol-Ipratrop 3 mg / 0.5 (3 ml) UD IH SCH ×4 (02:51→19:16)
--- NOTE | 2018-11-03 03:49 | CP.PCM.PN ---
Subjective - Date & Time of Evaluation Date of Evaluation: 11/03/18 Time of Evaluation: 03:47 - Subjective Subjective: S:Nurse calls for FSBS of 340 mg %. He is asymptomatic. Medical record was reviewed. O:Not in acute distress. VSS. LUNGS: Normal breathing pattern. A: Hyperglycemia. P:Regular insulin 4 Units SC x 1. Objective - Vital Signs/Intake and Output Vital Signs (last 24 hours): Temp Pulse Resp BP Pulse Ox 97.3 F L 56 L 18 90/50 L 100 11/03/18 00:01 11/03/18 00:01 11/03/18 00:01 11/03/18 00:01 11/03/18 00:01 Intake and Output: 11/02/18 11/03/18 18:59 06:59 Intake Total 360 1140 Output Total 225 500 Balance 135 640 - Medications Medications: Current Medications Acetaminophen (Tylenol 325mg Tab) 650 mg PO Q4H PRN PRN Reason: Fever >100.5 F Albuterol/Ipratropium (Duoneb 3 Mg/0.5 Mg (3 Ml) Ud) 3 ml IH [id number] [facility] Last Admin: 11/03/18 02:51 Dose: 3 ml Alprazolam (Xanax) 0.25 mg PO Q6 PRN; Protocol PRN Reason: Anxiety Stop: 11/09/18 09:47 Apixaban (Eliquis) 2.5 mg PO BID [facility]; Protocol Last Admin: 11/02/18 17:57 Dose: 2.5 mg Arformoterol Tartrate (Brovana) 15 mcg IH [id number] [facility] Last Admin: 11/02/18 19:12 Dose: 15 mcg Budesonide (Pulmicort Respules) 0.5 mg IH [id number] [facility] Last Admin: 11/02/18 19:12 Dose: 0.5 mg Gabapentin (Neurontin) 300 mg PO TID [facility]; Protocol Last Admin: 11/02/18 18:14 Dose: 300 mg Hydralazine HCl (Apresoline) 10 mg PO QID PRN PRN Reason: Diastolic blood pressure Dextrose/Sodium Chloride (Dextrose 5%/0.45% Ns 1000 Ml) 500 mls @ 100 mls/hr IV .Q5H [facility] Last Admin: 11/02/18 23:50 Dose: 100 mls/hr Ceftriaxone Sodium (Rocephin 1 Gram Ivpb) 1 gm in 100 mls @ 100 mls/hr IVPB DAILY [facility]; Protocol Insulin Human Regular (Humulin R High) 0 units SC ACHS [facility]; Protocol Last Admin: 11/02/18 22:06 Dose: 3 unit Levothyroxine Sodium (Synthroid) 100 mcg PO ACB [facility] Last Admin: 11/02/18 10:56 Dose: 100 mcg Metoprolol Tartrate (Lopressor) 25 mg PO BID [facility] Last Admin: 11/02/18 17:58 Dose: 25 mg Ondansetron HCl (Zofran Inj) 4 mg IVP Q4H PRN PRN Reason: Nausea/Vomiting Tamsulosin HCl (Flomax) 0.4 mg PO DAILY [facility] Last Admin: 11/02/18 10:58 Dose: 0.4 mg Tizanidine HCl (Zanaflex) 4 mg PO QID [facility] Last Admin: 11/02/18 22:06 Dose: 4 mg Tramadol HCl (Ultram) 50 mg PO QID PRN PRN Reason: Pain, severe (8-10) - Labs Labs: 11/01/18 16:10 11/01/18 16:10 PT 16.3 SECONDS (9.4-12.5) H 11/01/18 16:10 INR 1.47 11/01/18 16:10 APTT 38.1 Seconds (26.9-38.3) 11/01/18 16:10
[2018-11-03] MEDS: Budesonide 0.5 mg/2 ml Inhal Susp UD IH SCH ×2 (07:39→19:16)
[2018-11-03] MEDS: Arformoterol 15 mcg/2 ml Inh Sol IH SCH ×2 (07:39→19:16)
[2018-11-03 07:40] LABS: ALBUMIN 3.2 g/dL (3.0-4.8); CALCIUM 8.1 mg/dL (8.4-10.5)
[2018-11-03 07:43] LABS: BASO # 0.02 K/mm3 (0.0-2.0); BASO % 0.3 % (0.0-3.0); EOS # 0.2 (0.0-0.7); EOS % 3.6 % (1.5-5.0); HEMOGLOBIN 10.2 g/dL (14.0-18.0); LYMPH # 1.3 (1.2-3.4); LYMPH % 21.1 % (22.0-35.0); MEAN CELL VOLUME 100.6 fl (80.0-105.0); MEAN CORPUSCULAR HEMOGLOBIN 32.7 pg (25.0-35.0); MEAN CORPUSCULAR HGB CONC 32.5 g/dl (31.0-37.0); MEAN PLATELET VOLUME 11.1 fl (7.0-11.0); MONO # 0.4 (0.1-0.6); MONO % 6.4 % (1.0-6.0); RBC 3.12 10^6/uL (3.5-6.1); RED CELL DISTRIBUTION WIDTH 14.2 % (11.5-14.5); WHITE BLOOD COUNT 6.4 10^3/uL (4.5-11.0)
--- NOTE | 2018-11-03 07:51 | CARD ---
APPROVED REPORT Date of service: 11/01/2018 EKG Measurement Heart [id number] <Conclusion> Sinus tachycardia Possible Inferior infarct, age undetermined Abnormal ECG
[2018-11-03] MEDS: Insulin Reg-HIGH-Coverage SC SCH ×4 (08:29→21:55)
[2018-11-03] MEDS: Levothyroxine 100 MCG TAB PO SCH (08:29)
[2018-11-03] MEDS: cefTRIAXone 1 gm 1 GM/100 ML BAG IVPB SCH (10:06)
[2018-11-03] MEDS: Sodium Chloride 0.9% 1,000 ML IV SCH (10:10)
[2018-11-03] MEDS ORDERED: Sodium Chloride 0.9% 200 ML IV STA (12:43)
--- NOTE | 2018-11-03 13:58 | CP.PCM.CON ---
<Venessa Kowalski - Last Filed: 11/03/18 13:59> History of Present Illness - History of Present Illness History of Present Illness: PGY5 GI Consult Nii Scott is a 73yo M with PMHx of Afib on eliquis, COPD, CHF, presents to the ER for AMS, hypoglycemia, and melena. Pt could not give a hx due to mental status, so all information was obtained from chart and staff. As per chart, pt was found by his daughter with AMS and hypoglycemia. He was also found to have soiled himself with melena. His initial hgb was ~10 (aroud his baseline). Ater arrival, there is no report of hematemsis, coffee-ground emesis, melena, or hematachezia. Pt had a previous hx of GI bleed and found to have an AVM by EGD in 12/2017, whicg was cauterized. His hgn remained stable, so colonscopy was not perused. PMHx: DM, Afib on eliquis, COPD, CHF Social Hx: Previous smoker, Denies ETOH, Denies illicit drugs Family hx: no report of GI malignancy ROS: 12 point ROS conducted, neg other than above Past Patient History - Infectious Disease Hx of Infectious Diseases: None - Tetanus Immunizations Tetanus Immunization: Unknown - Past Social History Smoking Status: Unknown If Ever Smoked - CARDIAC Hx Cardiac Disorders: Yes (Afib) Hx Congestive Heart Failure: Yes Hx Hypercholesterolemia: Yes Hx Hypertension: Yes - PULMONARY Hx Respiratory Disorders: Yes Hx Bronchitis: Yes Hx Chronic Obstructive Pulmonary Disease (COPD): Yes Hx Pneumonia: Yes - NEUROLOGICAL Hx Neurological Disorder: No - HEENT Hx HEENT Problems: No - RENAL Hx Chronic Kidney Disease: Yes Hx Renal Failure: Yes - ENDOCRINE/METABOLIC Hx Endocrine Disorders: Yes Hx Diabetes Mellitus Type 2: Yes Hx Hypothyroidism: Yes - HEMATOLOGICAL/ONCOLOGICAL Hx Blood Disorders: Yes Hx Anemia: Yes - INTEGUMENTARY Hx Psoriasis: Yes - MUSCULOSKELETAL/RHEUMATOLOGICAL Hx Musculoskeletal Disorders: Yes Hx Falls: Yes Hx Unsteady Gait: Yes - GASTROINTESTINAL Hx Gastrointestinal Disorders: No - GENITOURINARY/GYNECOLOGICAL Hx Genitourinary Disorders: Yes (URGENCY) Hx Incontinence: Yes - PSYCHIATRIC Hx Psychophysiologic Disorder: (unknown) Hx Depression: No Hx Emotional Abuse: No Hx Physical Abuse: No - SURGICAL HISTORY Other/Comment: patient is poor historian, PMH taken from previous admission - ANESTHESIA Hx Anesthesia: Yes Hx Anesthesia Reactions: No Hx Malignant Hyperthermia: No Meds Allergies/Adverse Reactions: Allergies Allergy/AdvReac Type Severity Reaction Status Date / Time No Known Allergies Allergy Verified 10/15/18 20:08 - Medications Medications: Current Medications Acetaminophen (Tylenol 325mg Tab) 650 mg PO Q4H PRN PRN Reason: Fever >100.5 F Albuterol/Ipratropium (Duoneb 3 Mg/0.5 Mg (3 Ml) Ud) 3 ml IH [id number] [facility] Last Admin: 11/03/18 13:24 Dose: 3 ml Alprazolam (Xanax) 0.25 mg PO Q6 PRN; Protocol PRN Reason: Anxiety Stop: 11/09/18 09:47 Arformoterol Tartrate (Brovana) 15 mcg IH [id number] [facility] Last Admin: 11/03/18 07:39 Dose: 15 mcg Budesonide (Pulmicort Respules) 0.5 mg IH [id number] [facility] Last Admin: 11/03/18 07:39 Dose: 0.5 mg Gabapentin (Neurontin) 300 mg PO TID [facility]; Protocol Last Admin: 11/03/18 10:05 Dose: 300 mg Hydralazine HCl (Apresoline) 10 mg PO QID PRN PRN Reason: Diastolic blood pressure Ceftriaxone Sodium (Rocephin 1 Gram Ivpb) 1 gm in 100 mls @ 100 mls/hr IVPB D AILY [facility]; Protocol Last Admin: 11/03/18 10:06 Dose: 100 mls/hr Sodium Chloride (Sodium Chloride 0.9%) 1,000 mls @ 60 mls/hr IV .[id number] [facility] Last Admin: 11/03/18 10:10 Dose: 60 mls/hr Insulin Human Regular (Humulin R High) 0 units SC ACHS [facility]; Protocol Last Admin: 11/03/18 12:40 Dose: 7 unit Levothyroxine Sodium (Synthroid) 100 mcg PO ACB [facility] Last Admin: 11/03/18 08:29 Dose: 100 mcg Ondansetron HCl (Zofran Inj) 4 mg IVP Q4H PRN PRN Reason: Nausea/Vomiting Tamsulosin HCl (Flomax) 0.4 mg PO DAILY [facility] Last Admin: 11/03/18 10:06 Dose: 0.4 mg Tizanidine HCl (Zanaflex) 4 mg PO QID [facility] Last Admin: 11/03/18 10:05 Dose: 4 mg Tramadol HCl (Ultram) 50 mg PO QID PRN PRN Reason: Pain, severe (8-10) Physical Exam - Constitutional Appears: Non-toxic, In Acute Distress - Head Exam Head Exam: ATRAUMATIC, NORMOCEPHALIC - Eye Exam Eye Exam: Normal appearance - ENT Exam ENT Exam: Mucous Membranes Moist, Normal Exam - Neck Exam Neck exam: Positive for: Normal Inspection - Respiratory Exam Respiratory Exam: Clear to Auscultation Bilateral, NORMAL BREATHING PATTERN. absent: Rales, Rhonchi, Wheezes, Respiratory Distress - Cardiovascular Exam Cardiovascular Exam: REGULAR RHYTHM, +S1, +S2 - GI/Abdominal Exam GI & Abdominal Exam: Normal Bowel Sounds, Soft. absent: Diminished Bowel Sounds, Distended, Firm, Guarding, Hernia, Organomegaly, Rebound, Rigid - Extremities Exam Extremities exam: Negative for: joint swelling, pedal edema - Neurological Exam Neurological exam: Altered - Skin Skin Exam: Dry, Intact, Normal Color, Warm Results - Vital Signs Recent Vital Signs: Last Vital Signs Temp 97.4 F L 11/03/18 06:00 Pulse 58 L 11/03/18 10:08 Resp 19 11/03/18 06:00 BP 87/54 L 11/03/18 10:08 Pulse Ox 100 11/03/18 06:00 - Labs Result Diagrams: 11/03/18 07:00 11/03/18 07:00 Labs: Laboratory Results - last 24 hr 11/02/18 11/02/18 11/03/18 16:27 21:06 02:15 WBC RBC Hgb Hct MCV MCH MCHC RDW Plt Count MPV Neut % (Auto) Lymph % (Auto) Levy % (Auto) Eos % (Auto) Baso % (Auto) Lymph # (Auto) Levy # (Auto) Eos # (Auto) Baso # (Auto) Absolute Neuts (auto) Sodium Potassium Chloride Carbon Dioxide Anion Gap BUN Creatinine Est GFR ( Amer) Est GFR (Non-Af Amer) POC Glucose (mg/dL) 287 H 361 H 340 H Random Glucose Calcium Phosphorus Magnesium Total Bilirubin AST ALT Alkaline Phosphatase Total Protein Albumin Globulin Albumin/Globulin Ratio TSH 3rd Generation 11/03/18 11/03/18 11/03/18 07:00 07:00 07:00 WBC 6.4 D RBC 3.12 L Hgb 10.2 L Hct 31.4 L MCV 100.6 MCH 32.7 MCHC 32.5 RDW 14.2 Plt Count 160 MPV 11.1 H Neut % (Auto) 68.6 H Lymph % (Auto) 21.1 L Levy % (Auto) 6.4 H Eos % (Auto) 3.6 Baso % (Auto) 0.3 Lymph # (Auto) 1.3 Levy # (Auto) 0.4 Eos # (Auto) 0.2 Baso # (Auto) 0.02 Absolute Neuts (auto) 4.36 Sodium 132 Potassium 4.7 Chloride 102 Carbon Dioxide 20 L Anion Gap 14 BUN 43 H Creatinine 3.2 H Est GFR ( Amer) 23 Est GFR (Non-Af Amer) 19 POC Glucose (mg/dL) Random Glucose 292 H Calcium 8.1 L Phosphorus 4.8 H Magnesium 1.8 Total Bilirubin 0.2 AST 27 ALT 22 Alkaline Phosphatase 103 Total Protein 6.5 Albumin 3.2 Globulin 3.3 Albumin/Globulin Ratio 1.0 L TSH 3rd Generation 1.89 11/03/18 11/03/18 07:27 11:40 WBC RBC Hgb Hct MCV MCH MCHC RDW Plt Count MPV Neut % (Auto) Lymph % (Auto) Levy % (Auto) Eos % (Auto) Baso % (Auto) Lymph # (Auto) Levy # (Auto) Eos # (Auto) Baso # (Auto) Absolute Neuts (auto) Sodium Potassium Chloride Carbon Dioxide Anion Gap BUN Creatinine Est GFR ( Amer) Est GFR (Non-Af Amer) POC Glucose (mg/dL) 218 H 258 H Random Glucose Calcium Phosphorus Magnesium Total Bilirubin AST ALT Alkaline Phosphatase Total Protein Albumin Globulin Albumin/Globulin Ratio [facility] 3rd Generation Assessment & Plan - Assessment and Plan (Free Text) Assessment: Nii Scott is a 73yo M with PMHx of Afib on eliquis, COPD, CHF, presents to the ER for AMS, hypoglycemia, and melena. Melena? Anemia, Hgb ~10 Afib on eliqus Hx of gastric AVM Plan: -will hols eliqus for now -will plan for EGD on Sun -will speak to PCP -continue to monitor h/h -continue Protonix 40mg IV BID -maintain x2 IV lines -type and screen -Keep hgb > 8 , transfuse PBC as needed D/W Dr. Lagos <Graciela Lagos V - Last Filed: 11/03/18 22:36> Meds - Medications Medications: Current Medications Acetaminophen (Tylenol 325mg Tab) 650 mg PO Q4H PRN PRN Reason: Fever >100.5 F Albuterol/Ipratropium (Duoneb 3 Mg/0.5 Mg (3 Ml) Ud) 3 ml IH [id number] [facility] Last Admin: 11/03/18 19:16 Dose: 3 ml Alprazolam (Xanax) 0.25 mg PO Q6 PRN; Protocol PRN Reason: Anxiety Stop: 11/09/18 09:47 Arformoterol Tartrate (Brovana) 15 mcg IH [id number] [facility] Last Admin: 11/03/18 19:16 Dose: 15 mcg Budesonide (Pulmicort Respules) 0.5 mg IH [id number] [facility] Last Admin: 11/03/18 19:16 Dose: 0.5 mg Gabapentin (Neurontin) 300 mg PO TID [facility]; Protocol Last Admin: 11/03/18 17:25 Dose: 300 mg Hydralazine HCl (Apresoline) 10 mg PO QID PRN PRN Reason: Diastolic blood pressure Ceftriaxone Sodium (Rocephin 1 Gram Ivpb) 1 gm in 100 mls @ 100 mls/hr IVPB DAILY [facility]; Protocol Last Admin: 11/03/18 10:06 Dose: 100 mls/hr Sodium Chloride (Sodium Chloride 0.9%) 1,000 mls @ 60 mls/hr IV .[id number] [facility] Last Admin: 11/03/18 10:10 Dose: 60 mls/hr Insulin Human Regular (Humulin R High) 0 units SC ACHS [facility]; Protocol Last Admin: 11/03/18 21:55 Dose: 3 unit Levothyroxine Sodium (Synthroid) 100 mcg PO ACB [facility] Last Admin: 11/03/18 08:29 Dose: 100 mcg Ondansetron HCl (Zofran Inj) 4 mg IVP Q4H PRN PRN Reason: Nausea/Vomiting Pantoprazole Sodium (Protonix Inj) 40 mg IVP Q12 [facility] Last Admin: 11/03/18 15:08 Dose: 40 mg Tamsulosin HCl (Flomax) 0.4 mg PO DAILY [facility] Last Admin: 11/03/18 10:06 Dose: 0.4 mg Tizanidine HCl (Zanaflex) 4 mg PO QID [facility] Last Admin: 11/03/18 21:52 Dose: 4 mg Tramadol HCl (Ultram) 50 mg PO QID PRN PRN Reason: Pain, severe (8-10) Results - Vital Signs Recent Vital Signs: Last Vital Signs Temp 97 F L 11/03/18 17:10 Pulse 61 11/03/18 18:00 Resp 18 11/03/18 17:10 BP 96/56 L 11/03/18 17:10 Pulse Ox 98 11/03/18 17:10 - Labs Result Diagrams: 11/03/18 07:00 11/03/18 07:00 Labs: Laboratory Results - last 24 hr 11/03/18 11/03/18 11/03/18 02:15 07:00 07:00 WBC 6.4 D RBC 3.12 L Hgb 10.2 L Hct 31.4 L MCV 100.6 MCH 32.7 MCHC 32.5 RDW 14.2 Plt Count 160 MPV 11.1 H Neut % (Auto) 68.6 H Lymph % (Auto) 21.1 L Levy % (Auto) 6.4 H Eos % (Auto) 3.6 Baso % (Auto) 0.3 Lymph # (Auto) 1.3 Levy # (Auto) 0.4 Eos # (Auto) 0.2 Baso # (Auto) 0.02 Absolute Neuts (auto) 4.36 Sodium 132 Potassium 4.7 Chloride 102 Carbon Dioxide 20 L Anion Gap 14 BUN 43 H Creatinine 3.2 H Est GFR ( Amer) 23 Est GFR (Non-Af Amer) 19 POC Glucose (mg/dL) 340 H Random Glucose 292 H Calcium 8.1 L Phosphorus 4.8 H Magnesium 1.8 Total Bilirubin 0.2 AST 27 ALT 22 Alkaline Phosphatase 103 Total Protein 6.5 Albumin 3.2 Globulin 3.3 Albumin/Globulin Ratio 1.0 L TSH 3rd Generation 11/03/18 11/03/18 11/03/18 07:00 07:27 11:40 WBC RBC Hgb Hct MCV MCH MCHC RDW Plt Count MPV Neut % (Auto) Lymph % (Auto) Levy % (Auto) Eos % (Auto) Baso % (Auto) Lymph # (Auto) Levy # (Auto) Eos # (Auto) Baso # (Auto) Absolute Neuts (auto) Sodium Potassium Chloride Carbon Dioxide Anion Gap BUN Creatinine Est GFR ( Amer) Est GFR (Non-Af Amer) POC Glucose (mg/dL) 218 H 258 H Random Glucose Calcium Phosphorus Magnesium Total Bilirubin AST ALT Alkaline Phosphatase Total Protein Albumin Globulin Albumin/Globulin Ratio TSH 3rd Generation 1.89 11/03/18 11/03/18 16:27 21:43 WBC RBC Hgb Hct MCV MCH MCHC RDW Plt Count MPV Neut % (Auto) Lymph % (Auto) Levy % (Auto) Eos % (Auto) Baso % (Auto) Lymph # (Auto) Levy # (Auto) Eos # (Auto) Baso # (Auto) Absolute Neuts (auto) Sodium Potassium Chloride Carbon Dioxide Anion Gap BUN Creatinine Est GFR ( Amer) Est GFR (Non-Af Amer) POC Glucose (mg/dL) 277 H 373 H Random Glucose Calcium Phosphorus Magnesium Total Bilirubin AST ALT Alkaline Phosphatase Total Protein Albumin Globulin Albumin/Globulin Ratio TSH 3rd Generation Attending/Attestation - Attestation I have personally seen and examined this patient.: Yes I have fully participated in the care of the patient.: Yes I have reviewed all pertinent clinical information: Yes Notes (Text): This is an addendum to GI consult report dictated by the GI Fellow. The patient was seen and examined earlier. Medical records, lab studies, imagings were reviewed. Last 24 hours events reviewed. Agreed with the above treatment plan as outlined in GI Fellow 's notes with the addition of the following 11/03/18 22:36
--- NOTE | 2018-11-03 16:24 | CON ---
DATE OF CONSULTATION: 11/03/2018 CARDIOLOGY CONSULTATION (DR. ADAMSON) HISTORY: The patient is a 74-year-old male, who was found covered with feces. PAST MEDICAL HISTORY: The patient's past medical history is from the chart. His history is not very reliable. He apparently has paroxysmal atrial fibrillation, for which he was placed on Eliquis. His past medical history also includes history of CHF, hypoglycemia, as well as COPD. Recently, he was admitted for osteomyelitis. Currently, the patient is in bed without discomfort, unable to give a full history. PHYSICAL EXAMINATION: VITAL SIGNS: Blood pressure is 87/54, heart rate is in the 50s. Normal sinus rhythm. NECK: Negative JVD. LUNGS: Without rales. CARDIAC: Heart rate S1, S2. EXTREMITIES: Without edema. EKG shows normal sinus rhythm with no acute changes. LABORATORY DATA: Creatinine is up to 3.2. BUN is 43, glucose is 218. The hemoglobin is 10.2. IMPRESSION: 1. History of paroxysmal atrial fibrillation. Currently, the patient is in normal sinus rhythm. 2. Anemia. 3. Questionable gastrointestinal bleed. 4. Hypotension. 5. Lethargy. PLAN: Given these findings, we will repeat an echocardiogram, which revealed normal LV function in the past. We will hold his Lopressor given his relative hypotension. IV fluids have been ordered. Adam Montoya MD
--- NOTE | 2018-11-03 19:30 | CON ---
DATE: 11/03/2018 PULMONARY CONSULTATION HISTORY OF PRESENT ILLNESS: The patient was seen and examined at bedside, we were asked by Dr. Nii Ramon, cook helper to evaluate and treat this 73-year-old man who is well known to our service from previous admissions. He presented to [facility] due to change in mental status and shortness of breath. He claims that the shortness of breath was of sudden onset. He denied fever. Denied cough and sputum production. Denied hemoptysis. He was recently discharged from the hospital after admission with exacerbation of COPD and atrial fibrillation. PAST MEDICAL HISTORY: Atrial fibrillation, chronic obstructive pulmonary disease, congestive heart failure, hypothyroidism, psoriasis, and traumatic brain injury. SOCIAL HISTORY: He is a former smoker, social drinker, and never used illicit drugs. ALLERGIES: NO KNOWN ALLERGIES. FAMILY HISTORY: No history of inherited diseases. MEDICATIONS: Reviewed by me, as per MAR. REVIEW OF SYSTEMS: Conducted by reviewing all sources: PULMONARY: See history of present illness. CARDIOVASCULAR: History of atrial fibrillation. GASTROINTESTINAL: No complains of nausea, vomiting, or diarrhea. GENITOURINARY: No dysuria or hematuria. Rest of the systems were reviewed and found to be negative. PHYSICAL EXAMINATION: GENERAL: He is awake, alert, and in no acute distress. In emergency room, he noted to be incontinent of urine and some stool. HEENT: Head is normocephalic and atraumatic. NECK: Supple with no jugular vein distention. No adenopathy. PULMONARY: Diminished breath sounds bilaterally with no rhonchi, rales, or wheezing. CARDIOVASCULAR: Irregular. No murmurs. GASTROINTESTINAL: Soft and nontender. No organomegaly. : Within normal limits EXTREMITIES: No pedal edema. No cyanosis. SKIN: No acute skin rash. NEUROLOGIC: Limited at present time. ASSESSMENT: 1. Exacerbation of chronic obstructive pulmonary disease. 2. Acute change in mental status. 3. Gastrointestinal bleeding. 4. Hypoxia. PLAN: I have reviewed additional data. His electrolytes were normal. Creatinine is significantly elevated at 2.6, which is renal insufficiency; however, when I checked his prior records, this is about his baseline. Hemoglobin is 12 and he had heme-positive stools on exam in emergency room, so he will be watch closely for GI bleeding. Procalcitonin was low. We will initiate treatment for his inhalation therapy for his chronic obstructive pulmonary disease, supplemental oxygen will be provided. I also reviewed his chest x-ray, which reveals borderline cardiomegaly and there was 8-mm lower lobe nodular density, probably granuloma. Will follow closely. Mik Newberry MD [facility]
[2018-11-04] MEDS: Sodium Chloride 0.9% 1,000 ML IV SCH (01:09)
[2018-11-04] MEDS: Albuterol-Ipratrop 3 mg / 0.5 (3 ml) UD IH SCH ×4 (01:42→19:24)
[2018-11-04] MEDS ORDERED: Insulin Regular 1 UNITS/0.01 ML ML SC ONE (03:34)
[2018-11-04 06:53] LABS: BASO # 0.02 K/mm3 (0.0-2.0); BASO % 0.3 % (0.0-3.0); EOS # 0.3 (0.0-0.7); EOS % 4.3 % (1.5-5.0); HEMOGLOBIN 9.1 g/dL (14.0-18.0); LYMPH # 1.3 (1.2-3.4); MEAN CELL VOLUME 100.4 fl (80.0-105.0); MEAN CORPUSCULAR HEMOGLOBIN 31.9 pg (25.0-35.0); MEAN CORPUSCULAR HGB CONC 31.8 g/dl (31.0-37.0); MONO # 0.4 (0.1-0.6); RBC 2.85 10^6/uL (3.5-6.1); RED CELL DISTRIBUTION WIDTH 13.8 % (11.5-14.5); WHITE BLOOD COUNT 7.4 10^3/uL (4.5-11.0)
[2018-11-04] MEDS: Arformoterol 15 mcg/2 ml Inh Sol IH SCH ×2 (07:27→19:24)
[2018-11-04] MEDS: Budesonide 0.5 mg/2 ml Inhal Susp UD IH SCH ×2 (07:28→19:24)
[2018-11-04 07:50] LABS: CALCIUM 8.3 mg/dL (8.4-10.5)
[2018-11-04] MEDS: Insulin Reg-HIGH-Coverage SC SCH ×4 (07:54→21:46)
[2018-11-04] MEDS: Levothyroxine 100 MCG TAB PO SCH (08:05)
--- NOTE | 2018-11-04 08:31 | PN ---
DATE: 11/04/2018 SUBJECTIVE: The patient appears comfortable this morning. He is not short of breath at rest. PHYSICAL EXAMINATION: VITAL SIGNS: Temperature is 97.8, pulse 59, respirations 18, blood pressure 94/52. Oxygen saturation on nasal cannula is 100%. HEENT: Normocephalic, atraumatic. No JVD. CARDIOVASCULAR: Systolic ejection murmur at the lower left sternal border. No S3 gallop. LUNGS: Clear bilaterally. EXTREMITIES: Mild edema. No cyanosis, no clubbing. Calves are nontender to palpation. GASTROINTESTINAL: Abdomen is soft, nontender and nondistended. Bowel sounds are positive. SKIN: No acute rash. NEUROLOGIC: Exam limited at the present time. IMPRESSION: 1. Gastrointestinal bleeding. 2. Anemia. 3. Change in mental status. 4. Advanced chronic obstructive pulmonary disease. 5. Chronic atrial fibrillation. PLAN: The patient appears very comfortable this morning. He is not short of breath at rest. He does state to feeling much better overall. I did discuss the case with night nurse at length. The night nurse stated the patient had an uneventful night. On physical exam, there is no significant bronchospasm noted. In addition, there is no significant alveolar-arterial gradient. I will continue the current nebulizer treatments and inhaled steroids for now. Inputs by GI and Cardiology are also noted. Clinical status of the patient appears improved - compared to the initial presentation. However, again, the future status/prognosis for this chronically ill elderly patient remains guarded. I will discuss the above with the attending physician. Umair Kauffman MD [facility]
[2018-11-04] MEDS: cefTRIAXone 1 gm 1 GM/100 ML BAG IVPB SCH (09:46)
--- NOTE | 2018-11-04 11:47 | CP.PCM.PN ---
<Perico Coon - Last Filed: 11/04/18 11:44> Subjective - Date & Time of Evaluation Date of Evaluation: 11/04/18 Time of Evaluation: 11:44 - Subjective Subjective: Patient is doing well, no acute overnight events. Eliquis is on hold. No active bleeding at this time. No abdominal pain or fever. Hb trended down last night. Objective - Vital Signs/Intake and Output Vital Signs (last 24 hours): Temp Pulse Resp BP Pulse Ox 97.5 F L 71 20 105/62 100 11/04/18 08:11 11/04/18 08:11 11/04/18 08:11 11/04/18 08:11 11/04/18 08:11 Intake and Output: 11/04/18 11/04/18 06:59 18:59 Intake Total 2080 Output Total 1650 Balance 430 - Medications Medications: Current Medications Acetaminophen (Tylenol 325mg Tab) 650 mg PO Q4H PRN PRN Reason: Fever >100.5 F Albuterol/Ipratropium (Duoneb 3 Mg/0.5 Mg (3 Ml) Ud) 3 ml IH [id number] [facility] Last Admin: 11/04/18 07:28 Dose: 3 ml Alprazolam (Xanax) 0.25 mg PO Q6 PRN; Protocol PRN Reason: Anxiety Stop: 11/09/18 09:47 Arformoterol Tartrate (Brovana) 15 mcg IH [id number] [facility] Last Admin: 11/04/18 07:27 Dose: 15 mcg Budesonide (Pulmicort Respules) 0.5 mg IH [id number] [facility] Last Admin: 11/04/18 07:28 Dose: 0.5 mg Gabapentin (Neurontin) 300 mg PO TID [facility]; Protocol Last Admin: 11/04/18 09:44 Dose: 300 mg Hydralazine HCl (Apresoline) 10 mg PO QID PRN PRN Reason: Diastolic blood pressure Ceftriaxone Sodium (Rocephin 1 Gram Ivpb) 1 gm in 100 mls @ 100 mls/hr IVPB DAILY [facility]; Protocol Last Admin: 11/04/18 09:46 Dose: 100 mls/hr Sodium Chloride (Sodium Chloride 0.9%) 1,000 mls @ 60 mls/hr IV .[id number] [facility] Last Admin: 11/04/18 01:09 Dose: 60 mls/hr Insulin Human Regular (Humulin R High) 0 units SC ACHS [facility]; Protocol Last Admin: 11/04/18 07:54 Dose: Not Given Levothyroxine Sodium (Synthroid) 100 mcg PO ACB [facility] Last Admin: 11/04/18 08:05 Dose: 100 mcg Metoprolol Tartrate (Lopressor) 12.5 mg PO BID [facility] Ondansetron HCl (Zofran Inj) 4 mg IVP Q4H PRN PRN Reason: Nausea/Vomiting Pantoprazole Sodium (Protonix Inj) 40 mg IVP Q12 [facility] Last Admin: 11/04/18 09:45 Dose: 40 mg Sitagliptin Phosphate (Januvia) 25 mg PO DAILY [facility] Last Admin: 11/04/18 10:44 Dose: 25 mg Tamsulosin HCl (Flomax) 0.4 mg PO DAILY [facility] Last Admin: 11/04/18 09:44 Dose: 0.4 mg Tizanidine HCl (Zanaflex) 4 mg PO QID [facility] Last Admin: 11/04/18 09:44 Dose: 4 mg Tramadol HCl (Ultram) 50 mg PO QID PRN PRN Reason: Pain, severe (8-10) - Labs Labs: 11/04/18 06:00 11/04/18 06:00 PT 16.3 SECONDS (9.4-12.5) H 11/01/18 16:10 INR 1.47 11/01/18 16:10 APTT 38.1 Seconds (26.9-38.3) 11/01/18 16:10 - Constitutional Appears: Well, Non-toxic - Head Exam Head Exam: ATRAUMATIC, NORMAL INSPECTION - ENT Exam ENT Exam: Mucous Membranes Moist, Normal Exam - Respiratory Exam Respiratory Exam: Clear to Ausculation Bilateral, NORMAL BREATHING PATTERN - Cardiovascular Exam Cardiovascular Exam: +S1, +S2. absent: REGULAR RHYTHM - GI/Abdominal Exam GI & Abdominal Exam: Soft, Normal Bowel Sounds. absent: Tenderness - Extremities Exam Extremities Exam: Full ROM, Normal Inspection - Neurological Exam Neurological Exam: Alert, Awake, Oriented x3 - Psychiatric Exam Psychiatric exam: Normal Affect, Normal Mood - Skin Skin Exam: Normal Color, Warm Assessment and Plan - Assessment and Plan (Free Text) Assessment: Nii Scott is a 73yo M with PMHx of Afib on eliquis, COPD, CHF, presents to the ER for AMS, hypoglycemia, and melena. Melena Anemia, Hgb ~10 Afib on eliqus Hx of gastric AVM Plan: -will hols eliqus for now -will plan for EGD on Sun after 48hrs off Eliquis -continue to monitor h/h -continue Protonix 40mg IV BID -Keep hgb > 8 , transfuse PBC as needed - Recheck CBC this afternoon as Hb trending down. D/W Dr. Lagos <Graciela Lagos V - Last Filed: 11/04/18 21:24> Objective - Vital Signs/Intake and Output Vital Signs (last 24 hours): Temp Pulse Resp BP Pulse Ox 97.2 F L 81 18 110/66 100 11/04/18 20:19 11/04/18 20:19 11/04/18 20:19 11/04/18 20:19 11/04/18 20:19 - Medications Medications: Current Medications Acetaminophen (Tylenol 325mg Tab) 650 mg PO Q4H PRN PRN Reason: Fever >100.5 F Albuterol/Ipratropium (Duoneb 3 Mg/0.5 Mg (3 Ml) Ud) 3 ml IH [id number] [facility] Last Admin: 11/04/18 19:24 Dose: 3 ml Alprazolam (Xanax) 0.25 mg PO Q6 PRN; Protocol PRN Reason: Anxiety Stop: 11/09/18 09:47 Arformoterol Tartrate (Brovana) 15 mcg IH [id number] [facility] Last Admin: 11/04/18 19:24 Dose: 15 mcg Budesonide (Pulmicort Respules) 0.5 mg IH [id number] [facility] Last Admin: 11/04/18 19:24 Dose: 0.5 mg Gabapentin (Neurontin) 300 mg PO TID [facility]; Protocol Last Admin: 11/04/18 20:01 Dose: 300 mg Hydralazine HCl (Apresoline) 10 mg PO QID PRN PRN Reason: Diastolic blood pressure Ceftriaxone Sodium (Rocephin 1 Gram Ivpb) 1 gm in 100 mls @ 100 mls/hr IVPB DAILY [facility]; Protocol Last Admin: 11/04/18 09:46 Dose: 100 mls/hr Sodium Chloride (Sodium Chloride 0.9%) 1,000 mls @ 60 mls/hr IV .[id number] [facility] Last Admin: 11/04/18 01:09 Dose: 60 mls/hr Insulin Human Regular (Humulin R High) 0 units SC ACHS [facility]; Protocol Last Admin: 11/04/18 19:59 Dose: Not Given Levothyroxine Sodium (Synthroid) 100 mcg PO ACB [facility] Last Admin: 11/04/18 08:05 Dose: 100 mcg Metoprolol Tartrate (Lopressor) 12.5 mg PO BID [facility] Last Admin: 11/04/18 20:02 Dose: 12.5 mg Ondansetron HCl (Zofran Inj) 4 mg IVP Q4H PRN PRN Reason: Nausea/Vomiting Pantoprazole Sodium (Protonix Inj) 40 mg IVP Q12 [facility] Last Admin: 11/04/18 09:45 Dose: 40 mg Sitagliptin Phosphate (Januvia) 25 mg PO DAILY [facility] Last Admin: 11/04/18 10:44 Dose: 25 mg Tamsulosin HCl (Flomax) 0.4 mg PO DAILY [facility] Last Admin: 11/04/18 09:44 Dose: 0.4 mg Tizanidine HCl (Zanaflex) 4 mg PO QID [facility] Last Admin: 11/04/18 20:01 Dose: 4 mg Tramadol HCl (Ultram) 50 mg PO QID PRN PRN Reason: Pain, severe (8-10) - Labs Labs: 11/04/18 17:01 11/04/18 06:00 PT 16.3 SECONDS (9.4-12.5) H 11/01/18 16:10 INR 1.47 11/01/18 16:10 APTT 38.1 Seconds (26.9-38.3) 11/01/18 16:10 Attending/Attestation - Attestation I have personally seen and examined this patient.: Yes I have fully participated in the care of the patient.: Yes I have reviewed all pertinent clinical information, including history, physical exam and plan: Yes Notes (Text): This is an addendum to GI progress report dictated by the GI Fellow. The patient was seen and examined earlier. Medical records, lab studies, imagings were reviewed. Last 24 hours events reviewed. Agreed with the above treatment plan as outlined in GI Fellow 's notes with the addition of the following Patient is now off Eliquis Schedule for an endoscopy on Sunday Follow-up hemoglobin hematocrit Discussed with , director of career services regarding the planned procedure 11/04/18 21:22
--- NOTE | 2018-11-04 11:48 | CP.PCM.PN ---
Subjective - Date & Time of Evaluation Date of Evaluation: 11/04/18 Time of Evaluation: 11:47 - Subjective Subjective: Patient out of room for surgery. No acute events overnight. Objective - Vital Signs/Intake and Output Vital Signs (last 24 hours): Temp Pulse Resp BP Pulse Ox 97.5 F L 71 20 105/62 100 11/04/18 08:11 11/04/18 08:11 11/04/18 08:11 11/04/18 08:11 11/04/18 08:11 Intake and Output: 11/04/18 11/04/18 06:59 18:59 Intake Total 2080 Output Total 1650 Balance 430 - Medications Medications: Current Medications Acetaminophen (Tylenol 325mg Tab) 650 mg PO Q4H PRN PRN Reason: Fever >100.5 F Albuterol/Ipratropium (Duoneb 3 Mg/0.5 Mg (3 Ml) Ud) 3 ml IH [id number] [facility] Last Admin: 11/04/18 07:28 Dose: 3 ml Alprazolam (Xanax) 0.25 mg PO Q6 PRN; Protocol PRN Reason: Anxiety Stop: 11/09/18 09:47 Arformoterol Tartrate (Brovana) 15 mcg IH [id number] [facility] Last Admin: 11/04/18 07:27 Dose: 15 mcg Budesonide (Pulmicort Respules) 0.5 mg IH [id number] [facility] Last Admin: 11/04/18 07:28 Dose: 0.5 mg Gabapentin (Neurontin) 300 mg PO TID [facility]; Protocol Last Admin: 11/04/18 09:44 Dose: 300 mg Hydralazine HCl (Apresoline) 10 mg PO QID PRN PRN Reason: Diastolic blood pressure Ceftriaxone Sodium (Rocephin 1 Gram Ivpb) 1 gm in 100 mls @ 100 mls/hr IVPB DAILY [facility]; Protocol Last Admin: 11/04/18 09:46 Dose: 100 mls/hr Sodium Chloride (Sodium Chloride 0.9%) 1,000 mls @ 60 mls/hr IV .[id number] [facility] Last Admin: 11/04/18 01:09 Dose: 60 mls/hr Insulin Human Regular (Humulin R High) 0 units SC ACHS [facility]; Protocol Last Admin: 11/04/18 07:54 Dose: Not Given Levothyroxine Sodium (Synthroid) 100 mcg PO ACB [facility] Last Admin: 11/04/18 08:05 Dose: 100 mcg Metoprolol Tartrate (Lopressor) 12.5 mg PO BID [facility] Ondansetron HCl (Zofran Inj) 4 mg IVP Q4H PRN PRN Reason: Nausea/Vomiting Pantoprazole Sodium (Protonix Inj) 40 mg IVP Q12 [facility] Last Admin: 11/04/18 09:45 Dose: 40 mg Sitagliptin Phosphate (Januvia) 25 mg PO DAILY [facility] Last Admin: 11/04/18 10:44 Dose: 25 mg Tamsulosin HCl (Flomax) 0.4 mg PO DAILY [facility] Last Admin: 11/04/18 09:44 Dose: 0.4 mg Tizanidine HCl (Zanaflex) 4 mg PO QID [facility] Last Admin: 11/04/18 09:44 Dose: 4 mg Tramadol HCl (Ultram) 50 mg PO QID PRN PRN Reason: Pain, severe (8-10) - Labs Labs: 11/04/18 06:00 11/04/18 06:00 PT 16.3 SECONDS (9.4-12.5) H 11/01/18 16:10 INR 1.47 11/01/18 16:10 APTT 38.1 Seconds (26.9-38.3) 11/01/18 16:10
--- NOTE | 2018-11-04 15:21 | CARD ---
APPROVED REPORT Date of service: 11/04/2018 EXAM: Two-dimensional and M-mode echocardiogram with Doppler and color Doppler. INDICATION Atrial Fibrillation Chest Pain 2D DIMENSIONS Left Atrium (2D)4.0 (1.6-4.0cm)IVSd1.3 (0.7-1.1cm) LVDd4.4 (3.9-5.9cm)PWd1.0 (0.7-1.1cm) LVDs3.1 (2.5-4.0cm)FS (%) 29.4 % LVEF (%)56.7 (>50%) M-Mode DIMENSIONS Aortic Root2.20 (2.2-3.7cm)Aortic Cusp Exc.1.00 (1.5-2.0cm) Aortic Valve AoV Peak Edzahucu150.0cm/Jackie Peak GR.10mmHg Mitral Valve MV E Qxefixil18.0cm/sMV A Gckgncsc35.6cm/sE/A ratio0.8 TDI E/Lateral E'0.0E/Medial E'0.0 Tricuspid Valve TR Peak Qkzvdeyn287jo/sRAP [id number] Peak Gr.20mmHg [id number] LEFT VENTRICLE The left ventricle is normal size. There is borderline to mild concentric left ventricular hypertrophy. The left ventricular function is normal.EF-55% There is normal LV segmental wall motion. Transmitral Doppler flow pattern is Grade III-reversible restrictive diastolic dysfunction. No left ventricle thrombus noted on this study. There is no ventricular septal defect visualized. There is no left ventricular aneurysm. There is no mass noted in the left ventricle. RIGHT VENTRICLE The right ventricle is normal size. There is normal right ventricular wall thickness. The right ventricular systolic function is normal. ATRIA The left atrium is borderline dilated. The right atrium size is normal. The interatrial septum is intact with no evidence for an atrial septal defect. AORTIC VALVE The aortic valve is moderately thickened. There is trace aortic regurgitation. Aortic Sclerosis Vs Mild As There is no aortic valvular vegetation. MITRAL VALVE The mitral valve is thickened but opens well. Mitral regurgitation is trace. There is no mitral valve stenosis. There is no evidence of mitral valve prolapse. TRICUSPID VALVE The tricuspid valve leaflets are thickened , but open well. There is trace to mild tricuspid regurgitation.RVSP-30 mmof hg. There is no tricuspid valve stenosis. There is no tricuspid valve prolapse or vegetation. PULMONIC VALVE The pulmonary valve is normal in structure. There is no pulmonic valvular regurgitation. There is no pulmonic valvular stenosis. GREAT VESSELS The aortic root is normal in size. The ascending aorta is normal in size. The pulmonary artery is normal. The IVC is normal in size and collapses >50% with inspiration. PERICARDIAL EFFUSION There is no pleural effusion. Trivial PE <Conclusion> The left ventricle is normal size. There is borderline to mild concentric left ventricular hypertrophy. The left ventricular function is normal.EF-55% There is trace aortic regurgitation. Aortic Sclerosis Vs Mild As Mitral regurgitation is trace. There is trace to mild tricuspid regurgitation.RVSP-30 mmof hg. The IVC is normal in size and collapses >50% with inspiration. Trivial PE. No vegetation or thrombus nopted.
--- NOTE | 2018-11-04 15:25 | PN ---
DATE: 11/04/2018 REASON FOR THE CONSULTATION AND FOLLOWUP: Cardiac evaluation, GI bleed; on Eliquis, history of possible paroxysmal atrial fibrillation. SUBJECTIVE: The patient denies any chest pain, shortness of breath, or any palpitation. PHYSICAL EXAMINATION: GENERAL: Not in apparent distress. VITAL SIGNS: Temperature afebrile, heart rate 71, blood pressure 105/62. HEENT: PERRLA. Extraocular muscles intact. NECK: Supple. No carotid bruits. No thyromegaly. CHEST: Clear to auscultation. HEART: S1 and S2 regular. ABDOMEN: Soft. EXTREMITIES: Clubbing, cyanosis negative. LABORATORY DATA: WBC 7.1, hemoglobin 9.1, hematocrit 28.6, platelet count 155. Chemistries show sodium 137, potassium 5, chloride 109, carbon dioxide 21, anion gap of 12, BUN 34, and creatinine 2.8. IMPRESSION: A 73-year-old male with morbid obesity, history of chronic obstructive pulmonary disease, history of congestive heart failure, history of possible paroxysmal atrial fibrillation. At one point, the patient was on Eliquis, admitted with gastrointestinal bleed. Hemoglobin dropped to 9.1. Cardiology consult was called for possible evaluation because the patient was on Eliquis and gastrointestinal bleed. 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 The patient's last echocardiography, 10/12/2017 shows left ventricular function normal, ejection fraction within the normal limits. No segmental wall motion abnormality. Diastolic dysfunction, no mitral regurgitation, no tricuspid regurgitation. Ejection fraction is calculated at 56%, right ventricular systolic pressure 23 mmHg dated 10/12/2017. EKG shows at that time sinus tachycardia, at this time EKG also shows normal sinus. RECOMMENDATIONS: Since the patient is in normal sinus with history of GI bleed, we will hold off Eliquis. The patient is not very communicative, after a fall at work, but he does not remember the blood thinner, so we will hold off in view of recent GI bleed and the patient is in normal sinus. We will get another echo to assess LV function. We will follow with you. The patient has history of chronic renal insufficiency on last admission 08/08/2018, at that time, BUN was 42 and creatinine 4.5; also history of hypothyroidism and traumatic brain injury after a fall 14 years ago from the roof as mentioned above. We will avoid nephrotoxic medication. If needed, we will give p.r.n. hydralazine but now the patient's blood pressure is low. We will resume back low-dose beta cassandra and avoid Eliquis. We will get echo to assess LV function. We will get the lipid profile, TSH, hemoglobin A1c. Further recommendation pending hospital course, discussed with Dr. Lagos. We will clear the patient for endoscopy. No evidence of acute [place], ischemia, or ____ given no evidence of arrhythmia. No evidence of congestive heart failure. We will hold anticoagulation for now. Discussed with Dr. Lagos. We will also get hemoglobin A1c and lipid profile tomorrow. The patient has a TSH of 1.8 within the normal limit. We will get echo for preop. I will put in the physician's nurse communication that the patient is clear to go for endoscopy; no evidence of arrhythmia. No evidence of congestive heart failure, acute ischemia, or angina. We will put him on low-dose metoprolol starting this afternoon because the patient's hypotension is resolved, because of the holding parameters. We will start low dose of metoprolol start at 12.5 p.o. b.i.d., withhold for heart rate less than 55 and systolic blood pressure less than 100. We will start beta-cassandra to prevent him going back into atrial fibrillation. Thank you Dr. Ramon for providing us the opportunity in taking care of this patient, Jose Carlos Scott. Josue Foster MD
[2018-11-04 17:06] LABS: MEAN CELL VOLUME 99.3 fl (80.0-105.0); MEAN CORPUSCULAR HGB CONC 32.3 g/dl (31.0-37.0); MEAN PLATELET VOLUME 10.4 fl (7.0-11.0); RBC 2.81 10^6/uL (3.5-6.1); RED CELL DISTRIBUTION WIDTH 13.9 % (11.5-14.5); WHITE BLOOD COUNT 7.1 10^3/uL (4.5-11.0)
[2018-11-05] MEDS: Albuterol-Ipratrop 3 mg / 0.5 (3 ml) UD IH SCH ×4 (01:35→19:47)
[2018-11-05] MEDS: Levothyroxine 100 MCG TAB PO SCH (06:29)
[2018-11-05 07:02] LABS: HEMOGLOBIN 8.9 g/dL (14.0-18.0); MEAN CELL VOLUME 100.4 fl (80.0-105.0); MEAN CORPUSCULAR HEMOGLOBIN 31.9 pg (25.0-35.0); MEAN CORPUSCULAR HGB CONC 31.8 g/dl (31.0-37.0); RBC 2.79 10^6/uL (3.5-6.1); RED CELL DISTRIBUTION WIDTH 13.9 % (11.5-14.5); WHITE BLOOD COUNT 6.7 10^3/uL (4.5-11.0)
[2018-11-05 07:10] LABS: ALB/GLOB RATIO 0.9 (1.1-1.8); ALBUMIN 2.9 g/dL (3.0-4.8); CALCIUM 8.4 mg/dL (8.4-10.5)
--- NOTE | 2018-11-05 07:46 | CP.PCM.PN ---
Subjective - Date & Time of Evaluation Date of Evaluation: 11/05/18 Time of Evaluation: 06:25 - Subjective Subjective: Awake, alert, no distress Reason for consultation and follow up:Cardiac evaluation and follow up, history of atrial fibrillation , on Eliquis, history of COPD, CHF. Seen and examined by me and Objective - Vital Signs/Intake and Output Vital Signs (last 24 hours): Temp Pulse Resp BP Pulse Ox 97.2 F L 65 18 110/66 100 11/04/18 20:19 11/05/18 06:00 11/04/18 20:19 11/04/18 20:19 11/04/18 20:19 Intake and Output: 11/05/18 11/05/18 06:59 18:59 Intake Total 1320 Output Total 900 Balance 420 - Medications Medications: Current Medications Acetaminophen (Tylenol 325mg Tab) 650 mg PO Q4H PRN PRN Reason: Fever >100.5 F Albuterol/Ipratropium (Duoneb 3 Mg/0.5 Mg (3 Ml) Ud) 3 ml IH [id number] [facility] Last Admin: 11/05/18 01:35 Dose: 3 ml Alprazolam (Xanax) 0.25 mg PO Q6 PRN; Protocol PRN Reason: Anxiety Stop: 11/09/18 09:47 Arformoterol Tartrate (Brovana) 15 mcg IH [id number] [facility] Last Admin: 11/04/18 19:24 Dose: 15 mcg Budesonide (Pulmicort Respules) 0.5 mg IH [id number] [facility] Last Admin: 11/04/18 19:24 Dose: 0.5 mg Gabapentin (Neurontin) 300 mg PO TID [facility]; Protocol Last Admin: 11/04/18 20:01 Dose: 300 mg Hydralazine HCl (Apresoline) 10 mg PO QID PRN PRN Reason: Diastolic blood pressure Ceftriaxone Sodium (Rocephin 1 Gram Ivpb) 1 gm in 100 mls @ 100 mls/hr IVPB DAILY [facility]; Protocol Last Admin: 11/04/18 09:46 Dose: 100 mls/hr Sodium Chloride (Sodium Chloride 0.9%) 1,000 mls @ 60 mls/hr IV .[id number] [facility] Last Admin: 11/04/18 01:09 Dose: 60 mls/hr Insulin Human Regular (Humulin R High) 0 units SC ACHS [facility]; Protocol Last Admin: 11/04/18 21:46 Dose: Not Given Levothyroxine Sodium (Synthroid) 100 mcg PO 0600 [facility] Last Admin: 11/05/18 06:29 Dose: 100 mcg Metoprolol Tartrate (Lopressor) 12.5 mg PO BID [facility] Last Admin: 11/04/18 20:02 Dose: 12.5 mg Ondansetron HCl (Zofran Inj) 4 mg IVP Q4H PRN PRN Reason: Nausea/Vomiting Pantoprazole Sodium (Protonix Inj) 40 mg IVP Q12 [facility] Last Admin: 11/04/18 22:08 Dose: 40 mg Sitagliptin Phosphate (Januvia) 25 mg PO DAILY [facility] Last Admin: 11/04/18 10:44 Dose: 25 mg Tamsulosin HCl (Flomax) 0.4 mg PO DAILY [facility] Last Admin: 11/04/18 09:44 Dose: 0.4 mg Tizanidine HCl (Zanaflex) 4 mg PO QID [facility] Last Admin: 11/04/18 22:05 Dose: 4 mg Tramadol HCl (Ultram) 50 mg PO QID PRN PRN Reason: Pain, severe (8-10) - Labs Labs: 11/05/18 06:20 11/05/18 06:20 PT 16.3 SECONDS (9.4-12.5) H 11/01/18 16:10 INR 1.47 11/01/18 16:10 APTT 38.1 Seconds (26.9-38.3) 11/01/18 16:10 - Constitutional Appears: Non-toxic, No Acute Distress - Head Exam Head Exam: NORMAL INSPECTION, NORMOCEPHALIC - Eye Exam Eye Exam: Normal appearance Pupil Exam: NORMAL ACCOMODATION - ENT Exam ENT Exam: Mucous Membranes Moist, Normal Exam - Respiratory Exam Respiratory Exam: Clear to Ausculation Bilateral, NORMAL BREATHING PATTERN - Cardiovascular Exam Cardiovascular Exam: REGULAR RHYTHM, +S1, +S2 - GI/Abdominal Exam GI & Abdominal Exam: Soft, Normal Bowel Sounds - Extremities Exam Extremities Exam: Full ROM, Normal Capillary Refill - Neurological Exam Neurological Exam: Alert, Awake - Psychiatric Exam Psychiatric exam: Normal Affect, Normal Mood - Skin Skin Exam: Dry, Normal Color, Warm Assessment and Plan - Assessment and Plan (Free Text) Assessment: A 73 year old male who was brought to the ER due to altered mental status and d vale found him at home covered with black stools and urine. 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 Admitte d for GI bleeding. Eliquis held due to recent GI bleeding. Telemetry showed normal sinus rhythm. Echo done yesterday and showed LVEF 55%, Trace AR/MR, mild TR, RVSP 30 mmHg, no vegetation. Cardiac status stable. Will discontinue telemetry.Hold Eliquis, GI on consult, GI work up in progress. Plan: Cardiac status stable Hold Eliquis, patient on normal sinus rhythm Heart rate controlled Blood pressure controlled On Synthroid 100 mg daily, lopressor 12.5 mg BID,Flomax 0.4 mg daily, Continue current treatment Continue current medications Will discontinue telemetry Glucose control GI on consult, GI work up in progress. Will follow up Plan and treatment discussed with Dr. Foster
[2018-11-05] MEDS: Arformoterol 15 mcg/2 ml Inh Sol IH SCH ×2 (08:14→19:47)
[2018-11-05] MEDS: Budesonide 0.5 mg/2 ml Inhal Susp UD IH SCH ×2 (08:14→19:45)
--- NOTE | 2018-11-05 08:57 | PN ---
DATE: 11/05/2018 SUBJECTIVE: The patient appears comfortable this morning. He is not short of breath at rest. PHYSICAL EXAMINATION: VITAL SIGNS: Temperature is 97.2, pulse 65, respirations 18, blood pressure 110/66. Oxygen saturation on nasal cannula is 100%. HEENT: Normocephalic, atraumatic. No JVD. CARDIOVASCULAR: Systolic ejection murmur at the lower left sternal border. No S3 gallop. LUNGS: Clear bilaterally. EXTREMITIES: Mild edema. No cyanosis, no clubbing. Calves are nontender to palpation. GASTROINTESTINAL: Abdomen is soft, nontender and nondistended. Bowel sounds are positive. SKIN: No acute rash. NEUROLOGIC: Exam limited at the present time. IMPRESSION: 1. Gastrointestinal bleeding. 2. Anemia. 3. Change in mental status. 4. Advanced chronic obstructive pulmonary disease. 5. Chronic atrial fibrillation. PLAN: The patient appears comfortable this morning. He is not short of breath at rest. He does state to feeling much better overall. On physical exam, his lungs remain clear. In addition, the oxygen saturation on nasal cannula is 100%. I will continue the current nebulizer treatments and inhaled steroids for now. Inputs by Cardiology and Gastroenterology are noted. Clinical status of the patient is certainly improved - compared to his initial presentation. However, given the above, the future status/prognosis for this chronically ill patient does remain very guarded. I will discuss the above with the attending physician. Umair Kauffman MD MTDD
[2018-11-05] MEDS: cefTRIAXone 1 gm 1 GM/100 ML BAG IVPB SCH (09:34)
[2018-11-05] MEDS: Insulin Reg-HIGH-Coverage SC SCH ×3 (09:42→21:30)
--- NOTE | 2018-11-05 11:27 | CP.PCM.PN ---
<Perico Coon - Last Filed: 11/05/18 11:23> Subjective - Date & Time of Evaluation Date of Evaluation: 11/05/18 Time of Evaluation: 11:23 - Subjective Subjective: Patient is doing well today. Tolerating diet. No significant bleeding overnight. Hemoglobin has been stable. Objective - Vital Signs/Intake and Output Vital Signs (last 24 hours): Temp Pulse Resp BP Pulse Ox 97.5 F L 71 20 108/60 98 11/05/18 08:03 11/05/18 09:33 11/05/18 08:03 11/05/18 09:33 11/05/18 08:03 Intake and Output: 11/05/18 11/05/18 06:59 18:59 Intake Total 1320 Output Total 900 Balance 420 - Medications Medications: Current Medications Acetaminophen (Tylenol 325mg Tab) 650 mg PO Q4H PRN PRN Reason: Fever >100.5 F Albuterol/Ipratropium (Duoneb 3 Mg/0.5 Mg (3 Ml) Ud) 3 ml IH [id number] [facility] Last Admin: 11/05/18 08:14 Dose: 3 ml Alprazolam (Xanax) 0.25 mg PO Q6 PRN; Protocol PRN Reason: Anxiety Stop: 11/09/18 09:47 Arformoterol Tartrate (Brovana) 15 mcg IH [id number] [facility] Last Admin: 11/05/18 08:14 Dose: 15 mcg Budesonide (Pulmicort Respules) 0.5 mg IH [id number] [facility] Last Admin: 11/05/18 08:14 Dose: 0.5 mg Gabapentin (Neurontin) 300 mg PO TID [facility]; Protocol Last Admin: 11/05/18 09:33 Dose: 300 mg Hydralazine HCl (Apresoline) 10 mg PO QID PRN PRN Reason: Diastolic blood pressure Ceftriaxone Sodium (Rocephin 1 Gram Ivpb) 1 gm in 100 mls @ 100 mls/hr IVPB DAILY [facility]; Protocol Last Admin: 11/05/18 09:34 Dose: 100 mls/hr Sodium Chloride (Sodium Chloride 0.9%) 1,000 mls @ 60 mls/hr IV .[id number] [facility] Last Admin: 11/04/18 01:09 Dose: 60 mls/hr Insulin Human Regular (Humulin R High) 0 units SC ACHS [facility]; Protocol Last Admin: 11/05/18 09:42 Dose: 2 unit Levothyroxine Sodium (Synthroid) 100 mcg PO 0600 [facility] Last Admin: 11/05/18 06:29 Dose: 100 mcg Metoprolol Tartrate (Lopressor) 12.5 mg PO BID [facility] Last Admin: 11/05/18 09:33 Dose: 12.5 mg Ondansetron HCl (Zofran Inj) 4 mg IVP Q4H PRN PRN Reason: Nausea/Vomiting Pantoprazole Sodium (Protonix Inj) 40 mg IVP Q12 [facility] Last Admin: 11/05/18 09:34 Dose: 40 mg Sitagliptin Phosphate (Januvia) 25 mg PO DAILY [facility] Last Admin: 11/05/18 09:33 Dose: 25 mg Tamsulosin HCl (Flomax) 0.4 mg PO DAILY [facility] Last Admin: 11/05/18 09:32 Dose: 0.4 mg Tizanidine HCl (Zanaflex) 4 mg PO QID [facility] Last Admin: 11/05/18 09:34 Dose: 4 mg Tramadol HCl (Ultram) 50 mg PO QID PRN PRN Reason: Pain, severe (8-10) - Labs Labs: 11/05/18 06:20 11/05/18 06:20 PT 16.3 SECONDS (9.4-12.5) H 11/01/18 16:10 INR 1.47 11/01/18 16:10 APTT 38.1 Seconds (26.9-38.3) 11/01/18 16:10 - Constitutional Appears: Non-toxic, No Acute Distress - Head Exam Head Exam: ATRAUMATIC, NORMAL INSPECTION - Eye Exam Eye Exam: EOMI, Normal appearance - Respiratory Exam Respiratory Exam: Clear to Ausculation Bilateral, NORMAL BREATHING PATTERN - Cardiovascular Exam Cardiovascular Exam: REGULAR RHYTHM, +S1, +S2 - GI/Abdominal Exam GI & Abdominal Exam: Soft, Normal Bowel Sounds. absent: Tenderness - Extremities Exam Extremities Exam: Normal Inspection. absent: Pedal Edema - Neurological Exam Neurological Exam: Alert, Awake, Oriented x3 - Psychiatric Exam Psychiatric exam: Normal Affect, Normal Mood - Skin Skin Exam: Normal Color, Warm Assessment and Plan - Assessment and Plan (Free Text) Assessment: Nii Scott is a 73yo M with PMHx of Afib on eliquis, COPD, CHF, presents to the ER for AMS, hypoglycemia, and melena. Melena Anemia, Hgb ~10 Afib on eliqus Hx of gastric AVM Plan: -will hold eliqus for now -will plan for EGD tomorrow after 48hrs off Eliquis -Hb stable -continue Protonix 40mg IV BID -Keep hgb > 8 , transfuse PBC as needed -Recheck CBC this afternoon as Hb trending down. -Cleared by cardiology -Clear liquids at breakfast then NPO. EGD will be done in the afternoon. D/W Dr. Lagos, see attestation. <Graciela Lagos V - Last Filed: 11/05/18 20:31> Objective - Vital Signs/Intake and Output Vital Signs (last 24 hours): Temp Pulse Resp BP Pulse Ox 97.5 F L 90 20 98/59 L 98 11/05/18 08:03 11/05/18 17:57 11/05/18 08:03 11/05/18 17:57 11/05/18 08:03 Intake and Output: 11/05/18 11/06/18 18:59 06:59 Intake Total 540 Balance 540 - Medications Medications: Current Medications Acetaminophen (Tylenol 325mg Tab) 650 mg PO Q4H PRN PRN Reason: Fever >100.5 F Albuterol/Ipratropium (Duoneb 3 Mg/0.5 Mg (3 Ml) Ud) 3 ml IH [id number] [facility] Last Admin: 11/05/18 19:47 Dose: 3 ml Alprazolam (Xanax) 0.25 mg PO Q6 PRN; Protocol PRN Reason: Anxiety Stop: 11/09/18 09:47 Arformoterol Tartrate (Brovana) 15 mcg IH [id number] [facility] Last Admin: 11/05/18 19:47 Dose: 15 mcg Budesonide (Pulmicort Respules) 0.5 mg IH [id number] [facility] Last Admin: 11/05/18 19:45 Dose: 0.5 mg Gabapentin (Neurontin) 300 mg PO TID [facility]; Protocol Last Admin: 11/05/18 17:58 Dose: 300 mg Hydralazine HCl (Apresoline) 10 mg PO QID PRN PRN Reason: Diastolic blood pressure Ceftriaxone Sodium (Rocephin 1 Gram Ivpb) 1 gm in 100 mls @ 100 mls/hr IVPB DAILY [facility]; Protocol Last Admin: 11/05/18 09:34 Dose: 100 mls/hr Sodium Chloride (Sodium Chloride 0.9%) 1,000 mls @ 60 mls/hr IV .[id number] [facility] Last Admin: 11/04/18 01:09 Dose: 60 mls/hr Insulin Human Regular (Humulin R High) 0 units SC ACHS [facility]; Protocol Last Admin: 11/05/18 17:04 Dose: Not Given Levothyroxine Sodium (Synthroid) 100 mcg PO 0600 [facility] Last Admin: 11/05/18 06:29 Dose: 100 mcg Metoprolol Tartrate (Lopressor) 12.5 mg PO BID [facility] Last Admin: 11/05/18 17:57 Dose: Not Given Ondansetron HCl (Zofran Inj) 4 mg IVP Q4H PRN PRN Reason: Nausea/Vomiting Pantoprazole Sodium (Protonix Inj) 40 mg IVP Q12 [facility] Last Admin: 11/05/18 09:34 Dose: 40 mg Sitagliptin Phosphate (Januvia) 25 mg PO DAILY [facility] Last Admin: 11/05/18 09:33 Dose: 25 mg Tamsulosin HCl (Flomax) 0.4 mg PO DAILY [facility] Last Admin: 11/05/18 09:32 Dose: 0.4 mg Tizanidine HCl (Zanaflex) 4 mg PO QID [facility] Last Admin: 11/05/18 18:00 Dose: 4 mg Tramadol HCl (Ultram) 50 mg PO QID PRN PRN Reason: Pain, severe (8-10) - Labs Labs: 11/05/18 06:20 11/05/18 06:20 PT 16.3 SECONDS (9.4-12.5) H 11/01/18 16:10 INR 1.47 11/01/18 16:10 APTT 38.1 Seconds (26.9-38.3) 11/01/18 16:10 Attending/Attestation - Attestation I have personally seen and examined this patient.: Yes I have fully participated in the care of the patient.: Yes I have reviewed all pertinent clinical information, including history, physical exam and plan: Yes Notes (Text): This is an addendum to GI progress report dictated by the GI Fellow. The patient was seen and examined earlier. Medical records, lab studies, imagings were reviewed. Last 24 hours events reviewed. Agreed with the above treatment plan as outlined in GI Fellow 's notes with the addition of the following History of gastric erosion status post BiCAP therapy Patient is off Eliquis Follow-up of hemoglobin hematocrit Continue PPI Scheduled for EGD tomorrow 11/05/18 20:30
--- NOTE | 2018-11-05 16:11 | CP.PCM.PCO ---
Physician Communication Note - Physician Communication Note Physician Communication Note: pt. awaiting egd , scheduled for tommorow,Pt rec [facility]
[2018-11-06] MEDS: Albuterol-Ipratrop 3 mg / 0.5 (3 ml) UD IH SCH ×4 (01:19→20:40)
[2018-11-06] MEDS: Levothyroxine 100 MCG TAB PO SCH (05:58)
--- NOTE | 2018-11-06 07:29 | CP.PCM.PN ---
Subjective - Date & Time of Evaluation Date of Evaluation: 11/06/18 Time of Evaluation: 06:20 - Subjective Subjective: Awake, alert, no distress Reason for consultation and follow up:Cardiac evaluation and follow up, history of atrial fibrillation , on Eliquis, history of COPD, CHF. Seen and examined by me and Objective - Vital Signs/Intake and Output Vital Signs (last 24 hours): Temp Pulse Resp BP Pulse Ox 97.5 F L 90 20 98/59 L 98 11/05/18 08:03 11/05/18 17:57 11/05/18 08:03 11/05/18 17:57 11/05/18 08:03 Intake and Output: 11/06/18 11/06/18 06:59 18:59 Intake Total 1740 Output Total 3400 Balance -1660 - Medications Medications: Current Medications Acetaminophen (Tylenol 325mg Tab) 650 mg PO Q4H PRN PRN Reason: Fever >100.5 F Albuterol/Ipratropium (Duoneb 3 Mg/0.5 Mg (3 Ml) Ud) 3 ml IH [id number] [facility] Last Admin: 11/06/18 01:19 Dose: Not Given Alprazolam (Xanax) 0.25 mg PO Q6 PRN; Protocol PRN Reason: Anxiety Stop: 11/09/18 09:47 Arformoterol Tartrate (Brovana) 15 mcg IH [id number] [facility] Last Admin: 11/05/18 19:47 Dose: 15 mcg Budesonide (Pulmicort Respules) 0.5 mg IH [id number] [facility] Last Admin: 11/05/18 19:45 Dose: 0.5 mg Gabapentin (Neurontin) 300 mg PO TID [facility]; Protocol Last Admin: 11/05/18 17:58 Dose: 300 mg Hydralazine HCl (Apresoline) 10 mg PO QID PRN PRN Reason: Diastolic blood pressure Ceftriaxone Sodium (Rocephin 1 Gram Ivpb) 1 gm in 100 mls @ 100 mls/hr IVPB DAILY [facility]; Protocol Last Admin: 11/05/18 09:34 Dose: 100 mls/hr Sodium Chloride (Sodium Chloride 0.9%) 1,000 mls @ 60 mls/hr IV .[id number] [facility] Last Admin: 11/04/18 01:09 Dose: 60 mls/hr Insulin Human Regular (Humulin R High) 0 units SC ACHS [facility]; Protocol Last Admin: 11/05/18 21:30 Dose: Not Given Levothyroxine Sodium (Synthroid) 100 mcg PO 0600 [facility] Last Admin: 11/06/18 05:58 Dose: 100 mcg Metoprolol Tartrate (Lopressor) 12.5 mg PO BID [facility] Last Admin: 11/05/18 17:57 Dose: Not Given Ondansetron HCl (Zofran Inj) 4 mg IVP Q4H PRN PRN Reason: Nausea/Vomiting Pantoprazole Sodium (Protonix Inj) 40 mg IVP Q12 [facility] Last Admin: 11/05/18 21:37 Dose: 40 mg Sitagliptin Phosphate (Januvia) 25 mg PO DAILY [facility] Last Admin: 11/05/18 09:33 Dose: 25 mg Tamsulosin HCl (Flomax) 0.4 mg PO DAILY [facility] Last Admin: 11/05/18 09:32 Dose: 0.4 mg Tizanidine HCl (Zanaflex) 4 mg PO QID [facility] Last Admin: 11/05/18 21:29 Dose: 4 mg Tramadol HCl (Ultram) 50 mg PO QID PRN PRN Reason: Pain, severe (8-10) - Labs Labs: 11/05/18 06:20 11/05/18 06:20 PT 16.3 SECONDS (9.4-12.5) H 11/01/18 16:10 INR 1.47 11/01/18 16:10 APTT 38.1 Seconds (26.9-38.3) 11/01/18 16:10 - Constitutional Appears: Non-toxic, No Acute Distress - Head Exam Head Exam: NORMAL INSPECTION, NORMOCEPHALIC - Eye Exam Eye Exam: Normal appearance Pupil Exam: NORMAL ACCOMODATION - ENT Exam ENT Exam: Mucous Membranes Moist, Normal Exam - Respiratory Exam Respiratory Exam: Decreased Breath Sounds, Clear to Ausculation Bilateral, NORMAL BREATHING PATTERN - Cardiovascular Exam Cardiovascular Exam: +S1, +S2 - GI/Abdominal Exam GI & Abdominal Exam: Soft, Normal Bowel Sounds - Extremities Exam Extremities Exam: Full ROM, Normal Capillary Refill - Neurological Exam Neurological Exam: Alert, Awake, Oriented x3 - Psychiatric Exam Psychiatric exam: Normal Affect, Normal Mood - Skin Skin Exam: Dry, Normal Color, Warm Assessment and Plan - Assessment and Plan (Free Text) Assessment: A 73 year old male who was brought to the ER due to altered mental status and daughter found him at home covered with black stools and urine. 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 Admitted for GI bleeding. Eliquis held due to recent GI bleeding. Telemetry sh owed normal sinus rhythm. Echo done yesterday and showed LVEF 55%, Trace AR/MR, mild TR, RVSP 30 mmHg, no vegetation. Cardiac status stable. Will discontinue telemetry.Hold Eliquis, GI on consult. Cleared for EGD with moderate risk.No absolute contraindication, Denies chest pain. For EGD today. Plan: Worried about where to go when discharged Refer to social service For EGD today Cleared for EGD with moderate risk Cardiac status stable Eliquis held, patient on normal sinus rhythm Heart rate controlled Blood pressure controlled On Synthroid 100 mg daily, Lopressor 12.5 mg BID,Flomax 0.4 mg daily, Continue current treatment Continue current medications Glucose control GI on consult Discharge planning Will follow up Plan and treatment discussed with Dr. Foster
[2018-11-06] MEDS: Arformoterol 15 mcg/2 ml Inh Sol IH SCH ×2 (08:03→20:40)
[2018-11-06] MEDS: Budesonide 0.5 mg/2 ml Inhal Susp UD IH SCH ×2 (08:03→20:40)
[2018-11-06] MEDS: Insulin Reg-HIGH-Coverage SC SCH ×3 (08:04→17:59)
--- NOTE | 2018-11-06 10:36 | PN ---
DATE: 11/06/2018 PULMONARY NOTE SUBJECTIVE: The patient appears very comfortable this morning. He is not short of breath at rest. PHYSICAL EXAMINATION: VITAL SIGNS: (Last noted in the computer): Temperature is 97.5, pulse is 90, respirations 18, blood pressure last recorded(chart) - 98/59. Oxygen saturation on nasal cannula - 98%. HEENT: Normocephalic, atraumatic. No JVD. CARDIOVASCULAR: Systolic ejection murmur at the lower left sternal border. No S3 gallop. LUNGS: Clear bilaterally. GI: Abdomen is soft, nontender and nondistended. Bowel sounds are positive. EXTREMITIES: Mild edema. No cyanosis, no clubbing. Calves are nontender to palpation. SKIN: No acute rash. NEUROLOGIC: Exam limited at the present time. IMPRESSION: 1. Gastrointestinal bleeding. 2. Anemia. 3. Change in mental status. 4. Advanced chronic obstructive pulmonary disease. 5. Chronic atrial fibrillation. PLAN: The patient appears comfortable this morning. He is not short of breath at rest. He does state to feeling better overall. On physical exam, his lungs remain clear. In addition, the oxygen saturation on nasal cannula is 98%. I will continue the current nebulizer treatments and inhaled steroids for now. Inputs by Gastroenterology and Cardiology are noted. The patient is for endoscopy later this morning. Given that the patient has advanced chronic obstructive pulmonary disease, he is at increased risk for perioperative complications with any procedure. However, at this point in time, no absolute pulmonary contraindications exist to endoscopy and/or colonoscopy. Clinical status of the patient has certainly improved - compared to the initial presentation. However, given the above, the future status/prognosis for this patient does remain guarded. will discuss the above with the attending physician. Umair Kauffman MD [facility]
[2018-11-06] MEDS: cefTRIAXone 1 gm 1 GM/100 ML BAG IVPB SCH (10:47)
[2018-11-06] MEDS ORDERED: Magnesium Sulfate 1 gm in D5W 1 GM/100 ML BAG IVPB ONE (10:48)
[2018-11-06 11:48] LABS: HEMOGLOBIN 9.7 g/dL (14.0-18.0); MEAN CELL VOLUME 101.4 fl (80.0-105.0); MEAN CORPUSCULAR HEMOGLOBIN 32.8 pg (25.0-35.0); MEAN CORPUSCULAR HGB CONC 32.3 g/dl (31.0-37.0); MEAN PLATELET VOLUME 10.6 fl (7.0-11.0); RBC 2.96 10^6/uL (3.5-6.1); WHITE BLOOD COUNT 7.6 10^3/uL (4.5-11.0)
[2018-11-06 11:55] LABS: ALBUMIN 3.1 g/dL (3.0-4.8); CALCIUM 8.5 mg/dL (8.4-10.5)
[2018-11-06] MEDS ORDERED: Propofol 10 mg/ml Inj (20 ML) ONE (15:49)
[2018-11-06] MEDS ORDERED: Midazolam 2 MG/2 ML VIAL ONE (15:49)
[2018-11-06] MEDS ORDERED: Etomidate 20 mg/10ml Inj IV ONE (15:50)
[2018-11-06] MEDS: Sodium Chloride 0.9% 1,000 ML IV SCH ×2 (15:50→22:00)
--- NOTE | 2018-11-06 15:57 | CP.PCM.PCO ---
Physician Communication Note - Physician Communication Note Physician Communication Note: For egd today, awaits [facility] , as recommended by PT
[2018-11-06] MEDS: Sucralfate 1 gm/10 ml Oral Susp UD PO SCH ×2 (18:03→21:59)
[2018-11-07] MEDS: Albuterol-Ipratrop 3 mg / 0.5 (3 ml) UD IH SCH ×4 (01:47→19:35)
[2018-11-07] MEDS: Levothyroxine 100 MCG TAB PO SCH (06:05)
[2018-11-07] MEDS: Arformoterol 15 mcg/2 ml Inh Sol IH SCH ×2 (07:56→19:35)
[2018-11-07] MEDS: Budesonide 0.5 mg/2 ml Inhal Susp UD IH SCH ×2 (07:57→19:36)
--- NOTE | 2018-11-07 08:13 | CP.PCM.PN ---
Subjective - Date & Time of Evaluation Date of Evaluation: 11/07/18 Time of Evaluation: 06:50 - Subjective Subjective: Awake, alert, no distress, lying in bed Reason for consultation and follow up:Cardiac evaluation and follow up, history of atrial fibrillation , on Eliquis, history of COPD, CHF. Seen and examined by me and Objective - Vital Signs/Intake and Output Vital Signs (last 24 hours): Temp Pulse Resp BP Pulse Ox 97.7 F 80 11 L 106/66 98 11/06/18 17:30 11/06/18 18:04 11/06/18 17:30 11/06/18 18:04 11/06/18 17:30 Intake and Output: 11/07/18 11/07/18 06:59 18:59 Intake Total 680 1000 Output Total 2600 1300 Balance -1920 -300 - Medications Medications: Current Medications Acetaminophen (Tylenol 325mg Tab) 650 mg PO Q4H PRN PRN Reason: Fever >100.5 F Albuterol/Ipratropium (Duoneb 3 Mg/0.5 Mg (3 Ml) Ud) [id number] [facility] Last Admin: 11/07/18 07:56 Dose: 3 ml Alprazolam (Xanax) 0.25 mg PO Q6 PRN; Protocol PRN Reason: Anxiety Stop: 11/09/18 09:47 Arformoterol Tartrate (Brovana) [id number] [facility] Last Admin: 11/07/18 07:56 Dose: 15 mcg Budesonide (Pulmicort Respules) 0.[id number] [facility] Last Admin: 11/07/18 07:57 Dose: 0.5 mg Gabapentin (Neurontin) [address] [facility]; Protocol Last Admin: 11/06/18 18:04 Dose: 300 mg Hydralazine HCl (Apresoline) 10 mg PO QID PRN PRN Reason: Diastolic blood pressure Sodium Chloride (Sodium Chloride 0.9%) 1,000 mls @ 60 mls/hr IV .[id number] [facility] Last Admin: 11/06/18 22:00 Dose: 60 mls/hr Insulin Human Regular (Humulin R High) [address] [facility]; Protocol Last Admin: 11/06/18 17:59 Dose: Not Given Levothyroxine Sodium (Synthroid) [address] [facility] Last Admin: 11/07/18 06:05 Dose: 100 mcg Metoprolol Tartrate (Lopressor) 12.[address] [facility] Last Admin: 11/06/18 18:04 Dose: 12.5 mg Ondansetron HCl (Zofran Inj) 4 mg IVP Q4H PRN PRN Reason: Nausea/Vomiting Pantoprazole Sodium (Protonix Inj) [address] [facility] Last Admin: 11/06/18 22:12 Dose: 40 mg Sitagliptin Phosphate (Januvia) [address] [facility] Last Admin: 11/06/18 10:30 Dose: Not Given Sucralfate (Carafate Oral Susp) [address] [facility] Last Admin: 11/06/18 21:59 Dose: 1 gm Tamsulosin HCl (Flomax) 0.[address] [facility] Last Admin: 11/06/18 10:34 Dose: 0.4 mg Tizanidine HCl (Zanaflex) [address] [facility] Last Admin: 11/06/18 22:00 Dose: 4 mg Tramadol HCl (Ultram) 50 mg PO QID PRN PRN Reason: Pain, severe (8-10) - Labs Labs: 11/06/18 11:35 11/06/18 11:35 PT 16.3 SECONDS (9.4-12.5) H 11/01/18 16:10 INR 1.47 11/01/18 16:10 APTT 38.1 Seconds (26.9-38.3) 11/01/18 16:10 - Constitutional Appears: Non-toxic, No Acute Distress - Head Exam Head Exam: NORMAL INSPECTION, NORMOCEPHALIC - Eye Exam Eye Exam: Normal appearance Pupil Exam: NORMAL ACCOMODATION - ENT Exam ENT Exam: Mucous Membranes Moist, Normal Exam - Respiratory Exam Respiratory Exam: Clear to Ausculation Bilateral, NORMAL BREATHING PATTERN - Cardiovascular Exam Cardiovascular Exam: +S1, +S2 - GI/Abdominal Exam GI & Abdominal Exam: Soft, Normal Bowel Sounds - Extremities Exam Extremities Exam: Full ROM, Normal Capillary Refill - Neurological Exam Neurological Exam: Alert, Awake - Psychiatric Exam Psychiatric exam: Normal Affect, Normal Mood - Skin Skin Exam: Dry, Normal Color, Warm Assessment and Plan - Assessment and Plan (Free Text) Assessment: A 73 year old male who was brought to the ER due to altered mental status and daughter found him at home covered with black stools and urine. 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 Admitted for GI bleeding. Eliquis held due to recent GI bleeding. Telemetry showed normal sinus rhythm. Echo done yesterday and showed LVEF 55%, Trace AR/MR, mild TR, RVSP 30 mmHg, no vegetation. Cardiac status stable. Will discontinue telemetry.Hold Eliquis, GI on consult. Cleared for EGD with moderate risk.No absolute contraindication, Denies chest pain. Post EGD yesterday and showed Z-line irregular, 40 cms from incisors,esophageal mucosal changes suspicious for short segment Barretts esophagus, non bleeding gastric ulcer, non bleeding duodenal ulcer,duodenal mucosal lymphangiectasia. Continue Protonix and Carafate per GI. Plan: Post EGD yesterday Cardiac status stable Eliquis held, patient on normal sinus rhythm Heart rate controlled Blood pressure controlled On Synthroid 100 mg daily, Lopressor 12.5 mg BID,Flomax 0.4 mg daily, Continue current treatment Continue current medications Glucose control GI on consult, work up in progress. Discharge planning, awaiting [facility] placement Will follow up Plan and treatment discussed with Dr. Foster
[2018-11-07] MEDS: Insulin Reg-HIGH-Coverage SC SCH ×3 (08:15→17:23)
[2018-11-07 09:02] VITALS: RESP 17; TEMP 97.8; O2SAT 96
--- NOTE | 2018-11-07 09:04 | PN ---
DATE: 11/07/2018 PULMONARY NOTE SUBJECTIVE: The patient appears comfortable this morning. He is not short of breath at rest. OBJECTIVE: VITAL SIGNS: (Last noted in the computer): Temperature is 97.7, pulse is 80, respirations 18, blood pressure 106/66. Oxygen saturation on nasal cannula is 98%. HEENT: Normocephalic, atraumatic. NECK: No JVD. CARDIOVASCULAR: Systolic ejection murmur at the lower left sternal border. No S3 gallop. LUNGS: Clear bilaterally. EXTREMITIES: Mild edema. No cyanosis, no clubbing. Calves are nontender to palpation. GASTROINTESTINAL: Abdomen is soft, nontender and nondistended. Bowel sounds are positive. SKIN: No acute rash. NEUROLOGIC: Limited at the present time. IMPRESSION: 1. Gastrointestinal bleeding. Peptic ulcer disease. 2. Anemia. 3. Change in mental status - resolved. 4. Advanced chronic obstructive pulmonary disease. 5. Chronic atrial fibrillation. PLAN: The patient appears very comfortable this morning. He is not short of breath at rest. He does state to feeling much better overall. On physical exam, his lungs remain clear. In addition, the oxygen saturation on nasal cannula is now 98%. I will continue the current nebulizer treatments and inhaled steroids for now. Inputs by Gastroenterology and Cardiology are also noted. The patient's hemoglobin appears to be stabilizing. Clinical status of the patient is significantly improved - compared to the initial presentation. However, given the above, the future status/prognosis for this patient does remain guarded. I will discuss the above the attending physician. Umair Kauffman MD [facility]
[2018-11-07] MEDS: Sucralfate 1 gm/10 ml Oral Susp UD PO SCH ×3 (09:09→17:22)
[2018-11-07 12:00] LABS: HEMOGLOBIN 9.1 g/dL (14.0-18.0); MEAN CELL VOLUME 101.1 fl (80.0-105.0); MEAN CORPUSCULAR HEMOGLOBIN 32.7 pg (25.0-35.0); MEAN CORPUSCULAR HGB CONC 32.4 g/dl (31.0-37.0); MEAN PLATELET VOLUME 10.4 fl (7.0-11.0); RBC 2.78 10^6/uL (3.5-6.1); RED CELL DISTRIBUTION WIDTH 14.1 % (11.5-14.5); WHITE BLOOD COUNT 8.2 10^3/uL (4.5-11.0)
[2018-11-07 12:18] LABS: ALB/GLOB RATIO 0.9 (1.1-1.8); ALBUMIN 3.1 g/dL (3.0-4.8); CALCIUM 8.5 mg/dL (8.4-10.5)
[2018-11-07] MEDS ORDERED: Magnesium Sulfate 1 gm in D5W 1 GM/100 ML BAG IVPB ONE (13:18)
--- NOTE | 2018-11-07 13:23 | CP.PCM.PCO ---
Physician Communication Note - Physician Communication Note Physician Communication Note: s/p egd,res Barrets esophagus,SW for DC planning to [facility].Mag Contreras,
[2018-11-07 17:27] VITALS: BP 111/60; PULSE 72
== END 2018-11-07 20:16 | DRG 378 ==
LOC: ED 15:17 → ERH 16:52 → 3RNO 18:15
PROVIDERS: ADMIT Internal Medicine; ATTEND Internal Medicine
PROC: 0DB68ZX Excision of Stomach, Via Natural or Artificial Opening Endoscopic, Diagnostic (ICD-10-PCS; 2018-11-06)
PROC: 0DB98ZX Excision of Duodenum, Via Natural or Artificial Opening Endoscopic, Diagnostic (ICD-10-PCS; principal; 2018-11-06 14:00)
DX: K92.2 Gastrointestinal hemorrhage, unspecified (principal); I13.0 Hypertensive heart and chronic kidney disease with heart failure and stage 1 through stage 4 chronic kidney disease, or unspecified chronic kidney disease; J44.1 Chronic obstructive pulmonary disease with (acute) exacerbation; I50.32 Chronic diastolic (congestive) heart failure; K92.1 Melena; E11.649 Type 2 diabetes mellitus with hypoglycemia without coma; E11.22 Type 2 diabetes mellitus with diabetic chronic kidney disease; E03.9 Hypothyroidism, unspecified; I48.0 Paroxysmal atrial fibrillation; D64.9 Anemia, unspecified; I95.9 Hypotension, unspecified; L89.152 Pressure ulcer of sacral region, stage 2; I48.2 Chronic atrial fibrillation; N18.9 Chronic kidney disease, unspecified; I25.10 Atherosclerotic heart disease of native coronary artery without angina pectoris; Z87.820 Personal history of traumatic brain injury; D72.829 Elevated white blood cell count, unspecified; E11.65 Type 2 diabetes mellitus with hyperglycemia; E66.01 Morbid (severe) obesity due to excess calories; E78.00 Pure hypercholesterolemia, unspecified; I50.9 Heart failure, unspecified; R09.02 Hypoxemia; Z79.01 Long term (current) use of anticoagulants; Z79.84 Long term (current) use of oral hypoglycemic drugs; Z86.14 Personal history of Methicillin resistant Staphylococcus aureus infection; Z87.01 Personal history of pneumonia (recurrent); Z87.11 Personal history of peptic ulcer disease; Z87.891 Personal history of nicotine dependence; K25.9 Gastric ulcer, unspecified as acute or chronic, without hemorrhage or perforation; K26.9 Duodenal ulcer, unspecified as acute or chronic, without hemorrhage or perforation; K31.819 Angiodysplasia of stomach and duodenum without bleeding; K22.70 Barrett's esophagus without dysplasia; J84.10 Pulmonary fibrosis, unspecified